=== PATIENT | male | born 1965 | race Hispanic/Latino ===

== ENCOUNTER 2022-05-20 14:12 | Emergency (ER) | payer SELFPAY ==
--- NOTE | 2022-05-20 17:46 | RAD REPORT ---
EXAM DESCRIPTION: US - Extrem Venous W Compress Jairo - 05/20/2022 5:39 pm CLINICAL HISTORY: PAIN COMPARISON: No comparisons TECHNIQUE: Real-time sonographic evaluation of the lower extremity deep venous systems was performed using color Doppler, grayscale, and compression. FINDINGS: Bilateral lower extremities. Normal compressibility, flow augmentation, phasic flow and spontaneous flow is identified in both the left and right lower extremity deep venous systems. No intraluminal filling defects seen. IMPRESSION: No DVT in either lower extremity.
--- NOTE | 2022-05-20 18:12 | RAD REPORT ---
EXAM DESCRIPTION: RAD - Chest Single View - 05/20/2022 6:03 pm CLINICAL HISTORY: SOB COMPARISON: No comparisons FINDINGS: Lines: None. Lungs: No evidence of edema or pneumonia. Pleural: No significant pleural effusions or pneumothorax. Cardiac: The heart size is within normal limits. Mediastinum: Within normal limits. Bones: No acute fractures. Other: None IMPRESSION: No acute cardiopulmonary disease.
[2022-05-20 18:26] LABS: Absolute Lymphocytes (CBC) 1.4 K/uL (0.7-4.9); Hematocrit 26.4 % (39.6-49.0); MCV 90.1 fL (80-100); MPV 8.7 fL (7.6-11.3); RBC Red Blood Cell Count 2.93 M/uL (4.33-5.43)
[2022-05-20 19:06] LABS: Potassium 3.8 mmol/L (3.5-5.1); Troponin High Sensitivity 8.1 pg/mL (<58.9)
--- NOTE | 2022-05-20 19:50 | EDPHYS ---
Physician Documentation [facility] Name: Fan Lei Jr Age: 56 yrs Sex: Male : 1965 Arrival Date: 05/20/2022 Time: 14:26 Bed 12 Private MD: ED Physician Agustín Todd HPI: 05/20 15:00 This 56 yrs old Male presents to ER via Ambulatory with complaints of Leg jmm Pain, General Weakness. 15:00 The patient presents with pain. Is a 56-year-old male with history of alcoholism the m presents emerged part with complaints of lower extremity pain beginning approximately 5 months ago. Patient is currently in a rehabilitation facility. Patient states the pain is increased over the past few days. Also complains of some shortness of breath. Denies chest pain.. Historical: - Allergies: 14:47 No Known Allergies; kb3 - PMHx: 14:47 Alcohol dependence; kb3 - Immunization history:: Adult Immunizations unknown, Client reports receiving the 2nd dose of the Covid vaccine, Last tetanus immunization: unknown. - Social history:: Smoking status: Patient reports the use of cigarette tobacco products, smokes one-half pack cigarettes per day. ROS: 15:00 Constitutional: Negative for fever, chills, and weight loss, Cardiovascular: Negative jmm for chest pain, palpitations, and edema. 15:00 Respiratory: Positive for shortness of breath. 15:00 MS/extremity: Positive for pain. 15:00 All other systems are negative. Exam: 15:00 Constitutional: This is a well developed, well nourished patient who is awake, alert, jmm and in no acute distress. Head/Face: atraumatic. Eyes: EOMI, no conjunctival erythema appreciated ENT: Moist Mucus Membranes Neck: Trachea midline, Supple Chest/axilla: Normal chest wall appearance and motion. Cardiovascular: Regular rate and rhythm. No edema appreciated Respiratory: Normal respirations, no respiratory distress appreciated Abdomen/GI: Non distended Back: Normal ROM Skin: General appearance color normal 15:00 Musculoskeletal/extremity: Pain elicited on palpation of the right lower leg, no induration or erythema appreciated. No swelling appreciated. Dorsalis pedis palpated bilaterally. Compartments are soft. Sensation is intact. Neurovascular intact. 15:00 Skin: Appearance: Color: normal in color. 15:00 Neuro: Orientation: is normal, Mentation: is normal, Memory: is normal. 15:00 Psych: Behavior/mood is pleasant, cooperative. 22:49 ECG was reviewed by the Attending Physician. [facility] Vital Signs: 14:45 BP 139 / 80; Pulse 88; Resp 20; Temp 98.0; Pulse Ox 100% ; Weight 65.77 kg; Height 5 kb3 ft. 4 in. (162.56 cm); Pain 8/10; 20:02 BP 128 / 83; Pulse 99; Temp 97.7; Pulse Ox 99% ; zm 14:45 Body Mass Index 24.89 (65.77 kg, 162.56 cm) kb3 MDM: 15:04 Patient medically screened. [facility] 19:48 Data reviewed: vital signs, nurses notes. Counseling: I had a detailed discussion with [facility] the patient and/or guardian regarding: the historical points, exam findings, and any diagnostic results supporting the discharge/admit diagnosis, the need for outpatient follow up, to return to the emergency department if symptoms worsen or persist or if there are any questions or concerns that arise at home. 19:48 ED course: After reviewing labs. Hemoglobin level was at 8.5. I discussed this with the [facility] patient whom stated he did not have any history of anemia. Denied dark stools. I did discuss with the patient the need for further evaluation with a rectal exam and guaiac screening. Patient refused. Patient will be prescribed ferrous sulfate, Pepcid and given strict return precautions. Patient agreed.. 05/20 17:44 Order name: Basic Metabolic Panel; Complete Time: 19:10 [facility] 05/20 17:44 Order name: CBC with Diff; Complete Time: 18:29 [facility] 05/20 14:59 Order name: US Extremity Venous W Compression Jairo; Complete Time: 17:47 [facility] 05/20 17:44 Order name: Troponin HS; Complete Time: 19:10 [facility] 05/20 17:44 Order name: XRAY Chest (1 view); Complete Time: 18:13 [facility] 05/20 17:44 Order name: EKG; Complete Time: 17:44 [facility] 05/20 15:08 Order name: Gown patient; Complete Time: 18:25 [facility] 05/20 17:44 Order name: EKG - Nurse/Tech; Complete Time: 18:51 [facility] 05/20 17:44 Order name: IV Saline Lock; Complete Time: 18:20 [facility] 05/20 17:44 Order name: Labs collected and sent; Complete Time: 18:20 [facility] 05/20 17:44 Order name: O2 Per Protocol; Complete Time: 18:25 [facility] 05/20 17:44 Order name: O2 Sat Monitoring; Complete Time: 18:25 [facility] 05/20 18:28 Order name: Misc. Order: recollect green top; Complete Time: 18:44 jl7 EC:49 Rate is 77 beats/min. Rhythm is regular. QRS [place] is Normal. [place] interval is normal. QRS jmm interval is normal. QT interval is normal. No Q waves. T waves are Normal. No ST changes noted. Reviewed by me. Administered Medications: No medications were administered Disposition Summary: 05/20/22 19:49 Discharge Ordered Location: Home [facility] Condition: Stable [facility] Diagnosis - Anemia, unspecified [facility] - Pain in unspecified lower leg [facility] Followup: [facility] - With: Private Physician - When: 2 - 3 days - Reason: Recheck today's complaints, Continuance of care, Re-evaluation by your physician Discharge Instructions: - Discharge Summary Sheet [facility] - Anemia [facility] - Musculoskeletal Pain [facility] Forms: - Medication Reconciliation Form [facility] - Thank You Letter [facility] - Antibiotic Education [facility] - Prescription Opioid Use [facility] Prescriptions: - Ferrous Sulfate 325 mg (65 mg Iron) Oral Tablet - take 1 tablet by ORAL route every 8 hours; 90 tablet; Refills: 0, Product [facility] Selection Permitted - Pepcid 20 mg Oral Tablet - take 1 tablet by ORAL route every 12 hours for 10 days; 20 tablet; Refills: 0, [facility] Product Selection Permitted - orphenadrine citrate 100 mg Oral Tablet Sustained Release - take 1 tablet by ORAL route 2 times per day As needed; 20 tablet; Refills: 0, [facility] Product Selection Permitted Addendum: 05/24/2022 09:31 Co-signature as Attending Physician, Agustín ALCANTARA was immediately available on-site m s3 in the Emergency Department for consultation in the care of the patient. Signatures: Dispatcher [employer] EDMS Rosendo Rai PA PA jmm Leal, Jahala, RN RN jl7 Agustín Todd DO DO ms3 Tim, Jerri, RN RN kb3
--- NOTE | 2022-05-20 19:50 | ER ---
Nurse's Notes [facility] Name: Fan Lei Jr Age: 56 yrs Sex: Male : 1965 Arrival Date: 05/20/2022 Time: 14:26 Bed 12 Private MD: Diagnosis: Anemia, unspecified;Pain in unspecified lower leg Presentation: 05/20 14:45 Chief complaint: Patient states: Pt reports bilateral leg pain since January. No change in kb3 pain level. Pt is in alcohol detox x5 days at [facility]. Coronavirus screen: Vaccine status: Patient reports receiving the 2nd dose of the covid vaccine. Client denies travel out of the [place] in the last 14 days. Ebola Screen: Patient negative for fever greater than or equal to 101.5 degrees Fahrenheit, and additional compatible Ebola Virus Disease symptoms Patient denies exposure to infectious person. Patient denies travel to an Ebola-affected area in the 21 days before illness onset. No acute neurological deficit is noted. Initial Sepsis Screen: Does the patient meet any 2 criteria? No. Patient's initial sepsis screen is negative. Does the patient have a suspected source of infection? No. Patient's initial sepsis screen is negative. Risk Assessment: Do you want to hurt yourself or someone else? Patient reports no desire to harm self or others. Onset of symptoms was January 21, 2022. 14:45 Method Of Arrival: Ambulatory 3 14:45 Acuity: KITA 4 kb3 Triage Assessment: 14:47 General: Appears in no apparent distress. Behavior is calm, cooperative. Pain: kb3 Complains of pain in right leg and left leg Pain does not radiate. Pain currently is 8 out of 10 on a pain scale. Neuro: No deficits noted. Reports Bilateral leg pain. Historical: - Allergies: 14:47 No Known Allergies; kb3 - PMHx: 14:47 Alcohol dependence; kb3 - Immunization history:: Adult Immunizations unknown, Client reports receiving the 2nd dose of the Covid vaccine, Last tetanus immunization: unknown. - Social history:: Smoking status: Patient reports the use of cigarette tobacco products, smokes one-half pack cigarettes per day. Screenin:00 Abuse screen: Denies threats or abuse. Denies injuries from another. Nutritional hb screening: No deficits noted. Tuberculosis screening: No symptoms or risk factors identified. Fall Risk None identified. Assessment: 19:30 General: SEE TRIAGE ASSESSMENT. hb 20:17 Reassessment: Patient appears in no apparent distress at this time. Patient and/or hb family updated on plan of care and expected duration. Pain level reassessed. Patient is alert, oriented x 3, equal unlabored respirations, skin warm/dry/pink. Vital Signs: 14:45 BP 139 / 80; Pulse 88; Resp 20; Temp 98.0; Pulse Ox 100% ; Weight 65.77 kg; Height 5 kb3 ft. 4 in. (162.56 cm); Pain 8/10; 20:02 BP 128 / 83; Pulse 99; Temp 97.7; Pulse Ox 99% ; zm 14:45 Body Mass Index 24.89 (65.77 kg, 162.56 cm) kb3 ED Course: 14:26 Patient arrived in ED. am2 14:43 Rosendo Rai PA is PHCP. [facility] 14:43 Agustní Todd DO is Attending Physician. [facility] 14:47 Triage completed. kb3 14:47 Arm band placed on right wrist. kb3 17:41 US Extremity Venous W Compression Jairo In Process Unspecified. EDMS 18:04 XRAY Chest (1 view) In Process Unspecified. EDMS 18:20 Basic Metabolic Panel Sent. zm 18:20 CBC with Diff Sent. zm 18:20 Troponin HS Sent. zm 18:20 Inserted saline lock: 22 gauge in left forearm, using aseptic technique. Blood zm collected. 18:24 Aline Rodriguez, RN is Primary Nurse. hb 19:00 Patient has correct armband on for positive identification. hb 20:18 No provider procedures requiring assistance completed. IV discontinued, intact, hb bleeding controlled, No redness/swelling at site. Administered Medications: No medications were administered Medication: 20:18 VIS not applicable for this client. hb Outcome: 19:49 Discharge ordered by . [facility] 20:18 Discharged to home ambulatory. hb 20:18 Condition: stable 20:18 Discharge instructions given to patient, Instructed on discharge instructions, follow up and referral plans. medication usage, Demonstrated understanding of instructions, follow-up care, medications, Prescriptions given X 3. 20:19 Patient left the ED. hb Signatures: Dispatcher [employer] EDMS Rosendo Rai PA PA jmm Baxter, Heather, RN RN hb Judith Wagoner am2 Gita Zimmerman Kelly RN RN kb3
[2022-05-20 21:06] VITALS: BP 128/83; TEMP 97.7; O2SAT 99
--- NOTE | 2022-05-23 16:05 | EKG ---
Test Date: 2022-05-20 Test Time: 18:47:59 Software Development Manager: HB MEASUREMENT RESULTS: Intervals: Rate: 77 OK: 146 QRSD: 78 QT: 404 QTc: 457 [place]: P: 3 OK: 146 QRS: 5 T: 57 INTERPRETIVE STATEMENTS: Normal sinus rhythm Normal ECG No previous ECG available for comparison Electronically Signed On 05-23-22 15:59:56 CDT by Donnell Giraldo
== END 2022-05-20 20:19 | disposition home or self-care (01) ==
LOC: ER 14:12
DX: M79.661 Pain in right lower leg (principal); D64.9 Anemia, unspecified; F10.20 Alcohol dependence, uncomplicated
CPT/HCPCS: 36415; 71045; 80048; 84484; 85025; 93005; 93970; 99284

== ENCOUNTER 2022-12-14 07:28 | Emergency (ER) | payer SELFPAY ==
--- OUTSIDE RECORDS SUMMARY | 2022-12-14 07:35 | XMS REPORT | Continuity of Care Document ---
:1965 Author Organization [facility] t Address [address] [place] [address] Care Team Providers Name Role Phone Pcp, Patient Does Not Have A Primary Care Physician [id number] PRESTON ENRIQUEZ Attending Clinician Unavailable Doctor Unassigned, [place] Attending Clinician Unavailable RUBEN CONN Attending Clinician Unavailable Pardeep Moody MD Attending Clinician Ruben Conn MD Attending Clinician CHRISTIAN Attending Clinician Unavailable Tamara Partida LVN Attending Clinician Maya Nguyen DO Attending Clinician RIVKA PALACIOS Attending Clinician Unavailable Rivka Palacios MD Attending Clinician [phone] Sujit Carolina MD Attending Clinician DR KARRI THAYER Attending Clinician Unavailable Edna Attending Clinician Unavailable KAY ALBERTO Attending Clinician Unavailable Kay Alberto MD Attending Clinician Marcel Menjivar MD Attending Clinician DR ADY CONN Attending Clinician Unavailable RUBEN CONN Admitting Clinician Unavailable Ruben Conn MD Admitting Clinician HENRIK_KIRSTIN Admitting Clinician Unavailable SUJIT VAZQUEZ Admitting Clinician Unavailable Sujit Vazquez MD Admitting Clinician DR KARRI THAYER Admitting Clinician Unavailable Edna Admitting Clinician Unavailable KAY ALBERTO Admitting Clinician Unavailable DR ADY CONN Admitting Clinician Unavailable Payers Payer Name Policy Type Policy Number Effective Date Expiration Date [facility] MEDICAID SSI PENDING 2022 2022 PENDING 00:00:00 00:00:00 1000 [id number] 2022 00:00:00 Problems Condition Condition Condition Status Onset Resolution Last Treating Co mments Source Name Details Category Date Date Treatment Clinician Date Gastrointe Gastrointe Disease Active U nivers stinal stinal 3-18 [place]y [place] , 00 Medical unspecifie unspecifie Br anch d d gastrointe gastrointe stinal stinal hemorrhage hemorrhage type type SOB SOB Disease Active Univers (shortness (shortness 1-29 it y of of breath) [place] breath) [place] 00 [place] Branch Symptomati Symptomati Disease Active Overview : Univers c anemia c anemia 08-21 Formatt[place] ity of 00:00: g of this [place] [id number] note Medical might be Branch different from the original. 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 00:00: Medica l with with 00 Center complicati complicati on on Gastric Gastric Disease Active [facility] Allergies, Adverse Reactions, Alerts Allergy Allergy Status Severity Reaction(s) Onset Inactive Treating Comm ents Source Name Type Date Date Clinician No Known DA Active [facility] s NO KNOWN Drug Active Univers ALLERGIE Class ity of S [facility] NO KNOWN Allergy Active [facility] ALLERGIE [facility] Social History Social Habit Start Date Stop Date Quantity Comments Source History of tobacco Passive smoker Un iversity of use [place] [facility] History SDOH Social Unive rsity of Connections Get [place] [facility] ical Together Branch History SDOH Social Unive rsity of Connections Taoist [place] [facility] History SDOH Social Unive rsity of Connections [place] [facility] Membership Branch History SDOH Social Unive rsity of Connections [place] [facility] Meetings Branch History SDOH [facility] Housing Places Medical Ce nter Lived Exposure to 2022-09-27 2022-10-07 Not sure University of SARS-CoV-2 (event) 00:00:00 15:03:00 [place] [facility] Cigarettes smoked 2022-10-07 2022-10-07 Univers ity of current (pack per 00:00:00 00:00:00 [facility] edical day) - Reported Branch Cigarette 2022-10-07 2022-10-07 University of pack-years 00:00:00 00:00:00 [facility] Branch Alcohol intake 2022-10-07 2022-10-07 6 /d University of 00:00:00 00:00:00 [place] [facility] History SDOH 2022-10-07 2022-10-07 5 University o f Alcohol Frequency 00:00:00 00:00:00 [place] [facility] ed[facility] History SDOH 2022-10-07 2022-10-07 3 University o f Alcohol Std Drinks 00:00:00 00:00:00 [place] [facility] History SDOH 2022-10-07 2022-10-07 5 University o f Alcohol Binge 00:00:00 00:00:00 [place] [facility] History SDOH Social 2022-10-07 2022-10-07 5 Unive rsity of Connections Phone 00:00:00 00:00:00 [place] M edical Branch History SDOH Social 2022-10-07 2022-10-07 98 Unive rsity of Connections Living 00:00:00 00:00:00 [place] [facility] History SDOH 2022-10-07 2022-10-07 0 University o f Physical Activity 00:00:00 00:00:00 [place] [facility] ed[facility] DPW Branch History SDOH 2022-10-07 2022-10-07 0 University o f Physical Activity 00:00:00 00:00:00 [facility] edical MPS Branch History SDOH 2022-10-07 2022-10-07 5 University o f Financial 00:00:00 00:00:00 [place] [facility] History SDOH Food 2022-10-07 2022-10-07 1 Univers ity of Worry 00:00:00 00:00:00 [place] [facility] History SDOH Food 2022-10-07 2022-10-07 1 Univers ity of Scarcity 00:00:00 00:00:00 [place] [facility] History SDOH 2022-10-07 2022-10-07 2 University o f Transport Med 00:00:00 00:00:00 [place] [facility] History SDOH 2022-10-07 2022-10-07 2 University o f Transport Non-Med 00:00:00 00:00:00 [facility] edical Branch Tobacco use and 2021-12-18 2021-12-[address] [facility] exposure 00:00:00 00:00:00 tobacco non-user Medical Center History [facility] 2021-12-18 2021-12-[address] [facility] Housing Unable to 00:00:00 00:00:00 Medical Center Pay History [facility] 2021-12-18 2021-12-[address] [facility] Housing Homeless 00:00:00 00:00:00 Medical Center Last Year Sex Ass[birth year] At [birth year] Universit y of 00:00:00 00:00:00 [facility] Smoking Status Start Date Stop Date Source Smokes tobacco daily 2022-10-07 00:00:00 Univers ity of [facility] Occasional tobacco smoker 2022-08-22 00:00:00 Un iversity of [facility] Medications Ordered Filled Start Stop Current Ordering Indication Dosage Frequency Signature Comments Components Source Medication Medication Date Date Medication? Clinician (SIG) Name Name oxazepam 15 Yes [id number] 15mg Take 1 Univers mg capsule 3-22 capsule by ity of 00:00: mouth [place] 00 every 4 Medical (four) Branch hours as needed (Only while awake for DBP equal to or greater than 100, HR equal to or greater than 100.). foLIC acid Yes [id number] 1mg Take 1 Univers 1 mg tablet 3-20 tablet by ity of 00:00: mouth in [place] 00 the Medical morning. Branch pantoprazol Yes [id number] 40mg Take 1 Univers e 40 mg EC 3-20 tablet by ity of tablet 00:00: mouth in [place] 00 the Medical morning Branch and 1 tablet in the evening. propranoloL Yes [id number] 10mg Take 1 Univers 10 mg 3-20 tablet by ity of tablet 00:00: mouth in [place] 00 the Medical morning Branch and 1 tablet in the evening. thiamine Yes [id number] 100mg Take 1 Un juan antonio 100 mg 3-20 tablet by ity of tablet 00:00: mouth in [place] 00 the Medical morning. Branch ferrous Yes [id number] 325mg Take 1 Uni vers sulfate 3-20 tablet by ity of (IRON) 325 00:00: mouth in [place] as mg (65 mg 00 the [facility] iron) morning Branch tablet and 1 tablet at noon and 1 tablet in the evening. Take with meals. polyethylen Yes [id number] 17g Take 17 g Univers e glycol 3-20 by mouth ity of 3350 17 00:00: in the [place] gram/dose 00 morning. Medica l powder Branch oxazepam 15 2022- Yes [id number] 15mg Take 1 Univers mg capsule -10 10- capsule by it y of 00:00: 04:59 mouth [place] 00 :00 every 12 Medical (twelve) Branch hours for 1 day. oxazepam 15 2022- No [id number] 15mg Take 1 Univers mg capsule 3-20 - capsule by it y of 00:00: 00:00 mouth [place] 00 :00 every 12 Medical (twelve) Branch hours for 1 day. oxazepam 2022- Yes 15mg [Order 1 Univ ers (SERAX) 10-09 Start] ity of capsule 15 18:00: 18:14 Name: [place] mg 09 :00 oxazepam Medical (SERAX) Branch capsule 15 mg Signed Summary: 15 mg, Oral, Q8H TAPER, 3 doses, First dose on Mon10/09/22 at 1315, Last dose on Mon10/10/22 at 0515, Routine [Order 1 End] [Order 2 Start] Name: oxazepam (SERAX) capsule 15 mg Signed Summary: 15 mg, Oral, Q12H TAPER, 2 doses, First dose on Mon10/10/22 at 1715, Last dose on Mon10/11/22 at 0515, Routine [Order 2 End] iron 2022- No 300mg 300 mg, IV Unive rs sucrose 10-09 Infusion, ity of (VENOFER) 13:45: 17:37 ONCE, [place] 300 mg in 00 :00 Administer Medi heriberto NaCl 0.9% over 1.5 Branch (NS) 250 mL Hours, On infusion [place] 10/09/22 at 0845, For 1 dose magnesium 2022- No 4g 4 g, IV Univ ers sulfate in 10-09 Piggyback, it y of water 4 12:30: 17:18 at 25 [place] gram/50 mL 00 :00 mL/hr Medical (8 %) IV Administer Branc h Piggyback 4 over 120 g Minutes, ONCE, 1 dose, On [place] 10/09/22 at 0730, Routine melatonin Yes 3mg 3 mg, Univers (MELATIN) 10-09 Oral, QHS, ity of tablet 3 mg 05:45: First dose [place] 00 on [facility] 10/09/22 at Branch 0045, Until Discontinu ed, Routine thiamine 0 Yes [id number] 100mg Take 1 Un juan antonio 100 mg 3-19 tablet by ity of tablet 00:00: mouth in [place] 00 the Medical morning. Branch oxazepam 15 0 Yes [id number] 15mg Take 1 Univers mg capsule 10-09 capsule by ity of 00:00: mouth [place] 00 every 4 Medical (four) Branch hours as needed (Only while awake for DBP equal to or greater than 100, HR equal to or greater than 100.). ferrous 0 Yes [id number] 325mg Take 1 Uni vers sulfate 3-19 tablet by ity of (IRON) 325 00:00: mouth in [place] as mg (65 mg 00 the Medical iron) morning Branch tablet and 1 tablet at noon and 1 tablet in the evening. Take with meals. polyethylen 0 Yes [id number] 17g Take 17 g Univers e glycol 3-19 by mouth ity of 3350 17 00:00: in the [place] gram/dose 00 morning. Medica l powder Branch oxazepam 15 0 2022- Yes [id number] 15mg Take 1 Univers mg capsule 10-09 capsule by it y of 00:00: 04:59 mouth [place] 00 :00 every 8 Medical (eight) Branch hours for 1 day. oxazepam 15 2022- No [id number] 15mg Take 1 Univers mg capsule 10-09 capsule by it y of 00:00: 00:00 mouth [place] 00 :00 every 8 Medical (eight) Branch hours for 1 day. phytonadion 2022- Yes 10mg IV Unive rs e (VITAMIN 10-08 Piggyback, it y of K) 10 mg in 17:15: 17:14 Q24H ABX, [place] NaCl 0.9% 00 :00 3 doses, Medica l (NS) First dose Branch piggyback on [facility] 10/08/22 at 1215, Last dose on Mon10/10/22 at 1215, 50 mL oxazepam Yes 15mg 15 mg, Univers (SERAX) 10-08 Oral, ity of capsule 15 16:00: Q4HPRN, [place] mg 09 Starting Medical on [facility] 10/08/22 at 1100, Until Discontinu ed, Routine, Only while awake for DBP equal to or greater than 100, HR equal to or greater than 100. thiamine Yes 100mg 100 mg, Unive rs (VITAMIN 10-08 Oral, ity of B1) tablet 14:00: DAILY, [place] 100 mg 00 First dose Medical on [facility] 10/08/22 at 0900, Until Discontinu ed, Routine foLIC acid Yes 1mg 1 mg, Univer s (FOLATE) 10-08 Oral, ity of tablet 1 mg 14:00: DAILY, [place] 00 First dose Medical on [facility] 10/08/22 at 0900, Until Discontinu ed, Routine magnesium 2022- No 4g 4 g, IV Univ ers sulfate in 10-08 Piggyback, it y of water 4 14:00: 16:51 at 25 [place] gram/50 mL 00 :00 mL/hr Medical (8 %) IV Administer Branc h Piggyback 4 over 120 g Minutes, ONCE, 1 dose, On [facility] 10/08/22 at 0900, Routine pantoprazol 0 Yes 40mg 40 mg, Univ ers e 3-18 Slow IV ity of (PROTONIX) 13:00: Push, [place] injection 00 Q12H, Medical 40 mg First dose Branch on 10/08/22 at 0800, Until Discontinu ed oxazepam 2022-0 Yes 10mg 10 mg, Univers (SERAX) 18 Oral, ity of capsule 10 04:35: Q6HPRN, [place] mg 10 Starting Medical on Fri Branch 10/07/22 at 2335, Until Discontinu ed, Routine, Withdrawal signs pantoprazol 2022-0 202- No 40mg 40 mg, Uni vers e 318 03-18 Oral, BID, ity of (PROTONIX) 01:00: 12:22 First dose [place] EC tablet 00 :26 on Mon Medical 40 mg 10/07/22 at Branch 2000, Until Discontinu ed, Routine ondansetron 2022-0 Yes 4mg 4 mg, Slow Univers (ZOFRAN 3-17 IV Push, ity of (PF)) 15:26: Q6HPRN, [place] injection 4 20 Starting Medi heriberto mg on Fri Branch 10/07/22 at 1026, Until Discontinu ed, Routine, Nausea and Vomiting (N/V) acetaminoph 2022-0 Yes 650mg 650 mg, Un juan antonio en 3-17 Oral, ity of (TYLENOL) 15:26: Q6HPRN, [place] tablet 650 19 Starting Medic al mg on Fri Branch 10/07/22 at 1026, Until Discontinu ed, Routine, Pain (scale 1-3) foLIC acid 2022-0 Yes [id number] 1mg Take 1 Univers 1 mg tablet 2-02 tablet by ity of 00:00: mouth in [place] [address] the Medical morning. [place] foLIC acid 2022-0 Yes [id number] 1mg Take 1 Univers 1 mg tablet 2-02 tablet by ity of 00:00: mouth in [place] the Medical morning. [place] foLIC acid 2022-0 Yes [id number] 1mg Take 1 Univers 1 mg tablet 2-02 tablet by ity of 00:00: mouth in [place] the Medical morning. [place] foLIC acid 2022-0 Yes [id number] 1mg Take 1 Univers 1 mg tablet 2-02 tablet by ity of 00:00: mouth in [place] the Medical morning. [place] foLIC acid 2023-0 Yes [id number] 1mg Take 1 Univers 1 mg tablet 08-25 tablet by ity of 00:00: mouth in [place] 00 the Medical morning. [place] foLIC acid 2022- No [id number] 1mg Take 1 Univers 1 mg tablet 08-25 tablet by it y of 00:00: 00:00 mouth in [place] 00 :00 the Medical morning. [place] foLIC acid 0 2022- No [id number] 1mg Take 1 Univers 1 mg tablet 08-25 tablet by it y of 00:00: 00:00 mouth in [place] 00 :00 the Medical morning. [place] pantoprazol 0 Yes 40mg 40 mg, Univ ers e - Oral, BID, ity of (PROTONIX) 14:00: First dose [place] EC tablet 00 on Mon 40 mg 08/24/22 at [place] 0800, Until Discontinu ed, Routine KCL 2022-2022- No 40meq 40 mEq, Univers (KLOR-CON 08-24 Oral, ity of M20) tablet 13:30: 14:14 ONCE, 1 [place] 40 mEq 00 :00 dose, On Mon08/24/22 [place] at 0730, Routine propranoloL 2022-0 Yes 10mg 10 mg, Univ ers (INDERAL) 08-24 Oral, BID, ity of tablet 10 02:00: First dose [place] mg 00 on Mon08/23/22 at [place] 2000, Until Discontinu ed, Routine phytonadion 2022-2022- No 5mg 5 mg, Univ ers e (vitamin 2- Oral, ity of K1) 00:45: 14:59 DAILY, 3 [place] (MEPHYTON) 00 :00 doses, Medical tablet 5 mg First dose Br anch on Mon08/23/22 at 1845, Last dose on Mon08/25/22 at 0900, Routine pantoprazol 2022-0 Yes [id number] 40mg Take 1 Univers e 40 mg EC 08-24 tablet by ity of tablet 00:00: mouth in [place] 00 the Medical morning Branch and 1 tablet in the evening. propranoloL 2022-0 Yes [id number] 10mg Take 1 Univers 10 mg 08-24 tablet by ity of tablet 00:00: mouth in [place] [address] the Medical morning Branch and 1 tablet in the evening. pantoprazol 2023-0 Yes [id number] 40mg Take 1 Univers e 40 mg EC 2-01 tablet by ity of tablet 00:00: mouth in [place] 00 the Medical morning Branch and 1 tablet in the evening. propranoloL 2023-0 Yes [id number] 10mg Take 1 Univers 10 mg 2-01 tablet by ity of tablet 00:00: mouth in [place] 00 the Medical morning Branch and 1 tablet in the evening. pantoprazol 2023-0 Yes [id number] 40mg Take 1 Univers e 40 mg EC 2-01 tablet by ity of tablet 00:00: mouth in [place] 00 the Medical morning Branch and 1 tablet in the evening. propranoloL 2023-0 Yes [id number] 10mg Take 1 Univers 10 mg 2-01 tablet by ity of tablet 00:00: mouth in [place] [address] the Medical morning Branch and 1 tablet in the evening. pantoprazol 2023-0 Yes [id number] 40mg Take 1 Univers e 40 mg EC 2-01 tablet by ity of tablet 00:00: mouth in [place] [address] the Medical morning Branch and 1 tablet in the evening. propranoloL 2023-0 Yes [id number] 10mg Take 1 Univers 10 mg 2-01 tablet by ity of tablet 00:00: mouth in [place] [address] the Medical morning Branch and 1 tablet in the evening. pantoprazol 2023-0 Yes [id number] 40mg Take 1 Univers e 40 mg EC 2-01 tablet by ity of tablet 00:00: mouth in [place] [address] the Medical morning Branch and 1 tablet in the evening. propranoloL 2023-0 Yes [id number] 10mg Take 1 Univers 10 mg 2-01 tablet by ity of tablet 00:00: mouth in [place] [address] the Medical morning Branch and 1 tablet in the evening. propranoloL 2023-0 2023- No [id number] 10mg Take 1 Univers 10 mg 2-01 02-01 tablet by ity of tablet 00:00: 00:00 mouth in [place] 00 :00 the Medical morning Branch and 1 tablet in the evening. pantoprazol 2023-0 2023- No [id number] 40mg Take 1 Univers e 40 mg EC 2-01 02-01 tablet by ity of tablet 00:00: 00:00 mouth in [place] 00 :00 the Medical morning Branch and 1 tablet in the evening. Do all this for 30 days. pantoprazol 2022- No [id number] 40mg Take 1 Univers e 40 mg EC 08-24 tablet by ity of tablet 00:00: 00:00 mouth in [place] 00 :00 the [facility] Branch and 1 tablet in the evening. propranoloL 2022- No [id number] 10mg Take 1 Univers 10 mg 08-24 tablet by ity of tablet 00:00: 00:00 mouth in [place] 00 :00 the [facility] Branch and 1 tablet in the evening. magnesium 2022- No 4g 4 g, IV Univ ers sulfate in 08-23 Piggyback, it y of water 4 09:30: 14:00 at 25 [place] gram/50 mL 00 :00 mL/hr Medical (8 %) IV Administer Branc h Piggyback 4 over 120 g Minutes, ONCE, 1 dose, On Mon08/23/22 at 0330, Routine foLIC acid Yes 1mg 1 mg, Univer s (FOLATE) 08-22 Oral, ity of tablet 1 mg 15:00: DAILY, [place] 00 First dose Medical on Mon Branch 08/22/22 at 0900, Until Discontinu ed, Routine iron No 200mg 200 mg, IV Unive rs sucrose 08-22 Infusion, ity of (VENOFER) 15:00: 14:59 DAILY, [place] 200 mg in 00 :00 Administer Medi heriberto NaCl 0.9% over 1.5 Branch (NS) 100 mL Hours, infusion First dose on Mon08/22/22 at 0900, For 5 days magnesium 2022- No 4g 4 g, IV Univ ers sulfate in 08-22 Piggyback, it y of water 4 04:45: 08:35 at 25 [place] gram/50 mL 00 :00 mL/hr Medical (8 %) IV Administer Branc h Piggyback 4 over 120 g Minutes, ONCE, 1 dose, On 08/21/22 at 2245, Routine phytonadion 2022-2022- No 10mg IV Unive rs e (VITAMIN 08-22 Piggyback, it y of K) 10 mg in 04:22: 08:42 ONCE, 1 [place] NaCl 0.9% 00 :00 dose, On Medica l (NS) [place] Branch piggyback 08/21/22 at 2230, 50 mL pantoprazol 2022- No 80mg 80 mg, Uni vers e 08-22 Slow IV ity of (PROTONIX) 03:16: 04:15 Push, [place] injection 00 :00 ONCE, 1 Medical 80 mg dose, On Branch [place] 08/21/22 at 2130 lactulose Yes 30mL 30 mL, Univer s (CEPHULAC) 08-22 Oral, BID, ity of solution 30 02:00: First dose [place] mL 00 on [place] Medical 08/21/22 at Branch 2000, Until Discontinu ed, Routine acetaminoph Yes 650mg 650 mg, Un juan antonio en 08-22 Oral, ity of (TYLENOL) 01:51: Q6HPRN, [place] tablet 650 03 Starting Medic al mg on [place] Branch 08/21/22 at 1951, Until Discontinu ed, Routine, Pain (scale 1-3) pantoprazol 2022- No 8mg/h 8 mg/hr U nivers e 08-22 (50 ity of (PROTONIX) 01:30: 12:39 mL/hr), IV [place] 80 mg in 00 :06 Infusion, Medica l NaCl CONTINUOUS Branch 0.9%(NS) , Starting 500 mL IV on [place] infusion 08/21/22 at (CNR) 1930 cefTRIAXone 2022- No 1000mg 1,000 mg, Univers (ROCEPHIN) 08-22 Intravenou it y of 1,000 mg in 01:30: 16:35 s, Q24H [place] NaCl 0.9% 00 :33 ABX, 7 Medical (NS) 50 mL doses, Branch MINI-BAG First dose on [place] 08/21/22 at 1930, Last dose on [facility] 08/27/22 at 1930, Administer over 30 Minutes, 50 mL
Reas on for Anti-Infec tive: Empiric Therapy for Suspected Infection< br>Empiric Therapy Site: Abdominal< br>Duratio n of therapy: 5 days oxazepam Yes 15mg 15 mg, Univers (SERAX) 1-30 Oral, ity of capsule 15 01:20: Q4HPRN, [place] mg 49 Starting Medical on [place] Branch 08/21/22 at 1920, Until Discontinu ed, Routine, Only while awake for DBP equal to or greater than 100, HR equal to or greater than 100. folic acid 2022- No 1mg QD Take [address] [facility] (FOLVITE) 1 6- 07-08 tablet (1 Amanda k[facility] MG tablet 00:00: 23:59 mg total) Me dical 00 :00 by mouth Center daily for 30 days. folic acid 2021-2- No 1mg QD Take [address] [facility] (FOLVITE) 1 - 07-08 tablet (1 Amanda kes MG tablet 00:00: 23:59 mg total) Me dical 00 :00 by mouth Center daily for 30 days. folic acid 2- No 1mg QD Take [address] [facility] (FOLVITE) 1 - 07-08 tablet (1 [facility] kes MG tablet 00:00: 23:59 mg total) Me dical 00 :00 by mouth Center daily for 30 days. folic acid 2021-2- No 1mg QD Take [address] [facility] (FOLVITE) 1 - 07-08 tablet (1 Amanda kes MG tablet 00:00: 23:59 mg total) Me dical 00 :00 by mouth Center daily for 30 days. folic acid 2021-2- No 1mg QD Take [address] [facility] (FOLVITE) 1 - 07-08 tablet (1 Amanda kes MG tablet 00:00: 23:59 mg total) Me dical 00 :00 by mouth Center daily for 30 days. folic acid 2021-0 2- No 1mg QD Take [address] [facility] (FOLVITE) 1 6-08 07-08 tablet (1 Amanda kes MG tablet 00:00: 23:59 mg total) Me dical 00 :00 by mouth Center daily for 30 days. folic acid 2021-0 2022- No 1mg QD Take [address] [facility] (FOLVITE) 1 6-08 07-08 tablet (1 Amanda kes MG tablet 00:00: 23:59 mg total) Me dical 00 :00 by mouth Center daily for 30 days. folic acid 2022-0 2022- No 1mg QD Take [address] [facility] (FOLVITE) 1 6-08 07-08 tablet (1 Amanda kes MG tablet 00:00: 23:59 mg total) Me dical 00 :00 by mouth Center daily for 30 days. famotidine 2022-0 Yes 20mg Q.5D Take [address] (PEPCID) 20 6-07 by mouth 2 Amanda kes MG tablet 14:00: (two) Medical 10 times Center daily. LORazepam 2022-0 Yes 1mg Take [address] [facility] (ATIVAN) 1 6-07 by mouth 2 [place] es MG tablet 14:00: (two) Medical 10 times Center daily as needed for Anxiety. metoclopram 2022-0 Yes 5mg Q.[id number] Take [address] [facility] naye 6-07 [id number] by mouth 3 [place] es (REGLAN) 5 14:00: 3D (three) Medi heriberto MG tablet 10 times Center daily. famotidine 2022-0 Yes 20mg Q.5D Take [address] (PEPCID) 20 6-07 by mouth 2 Amanda kes MG tablet 14:00: (two) Medical 10 times Center daily. LORazepam 2022-0 Yes 1mg Take [address] [facility] (ATIVAN) 1 6-07 by mouth 2 [place] MG tablet 14:00: (two) Medical 10 times Center daily as needed for Anxiety. metoclopram 2022-0 Yes 5mg Q.[id number] Take [address] [facility] naye 6-07 [id number] by mouth 3 [place] es (REGLAN) 5 14:00: 3D (three) Medi heriberto MG tablet 10 times Center daily. famotidine 2022-0 Yes 20mg Q.5D Take [address] (PEPCID) 20 6-07 by mouth 2 [facility] kes MG tablet 14:00: (two) Medical 10 times Center daily. LORazepam 2022-0 Yes 1mg Take [address] [facility] (ATIVAN) 1 6-07 by mouth 2 [place] es MG tablet 14:00: (two) Medical 10 times Center daily as needed for Anxiety. metoclopram 2022-0 Yes 5mg Q.[id number] Take [address] [facility] naye 6-07 [id number] by mouth 3 [place] es (REGLAN) 5 14:00: 3D (three) Medi heriberto MG tablet 10 times Center daily. famotidine 2022-0 Yes 20mg Q.5D Take [address] (PEPCID) 20 6-07 by mouth 2 Amanda kes MG tablet 14:00: (two) Medical 10 times Center daily. LORazepam 2022-0 Yes 1mg Take [address] [facility] (ATIVAN) 1 6-07 by mouth 2 [place] MG tablet 14:00: (two) Medical 10 times Center daily as needed for Anxiety. metoclopram 2022-0 Yes 5mg Q.[id number] Take [address] [facility] naye 6-07 [id number] by mouth 3 [place] es (REGLAN) 5 14:00: 3D (three) Medi heriberto MG tablet 10 times Center daily. famotidine 2022-0 Yes 20mg Q.5D Take [address] (PEPCID) 20 6-07 by mouth 2 Amanda kes MG tablet 14:00: (two) Medical 10 times Center daily. LORazepam 2022-0 Yes 1mg Take [address] [address] (ATIVAN) 1 6-07 by mouth 2 [place] MG tablet 14:00: (two) Medical 10 times Center daily as needed for Anxiety. metoclopram 2022-0 Yes 5mg Q.[id number] Take [address] [facility] 6-07 [id number] by mouth 3 [place] es (REGLAN) 5 14:00: 3D (three) Medi heriberto MG tablet 10 times Center daily. famotidine 2022-0 Yes 20mg Q.5D Take [address] (PEPCID) 20 6-07 by mouth 2 Amanda kes MG tablet 14:00: (two) Medical 10 times Center daily. LORazepam 2022-0 Yes 1mg Take [address] [address] (ATIVAN) 1 6-07 by mouth 2 [place] es MG tablet 14:00: (two) Medical 10 times Center daily as needed for Anxiety. metoclopram 2022-0 Yes 5mg Q.[id number] Take [address] [facility] 6-07 [id number] by mouth 3 [place] es (REGLAN) 5 14:00: 3D (three) Medi heriberto MG tablet 10 times Center daily. famotidine 2022-0 Yes 20mg Q.5D Take [address] (PEPCID) 20 6-07 by mouth 2 Amanda kes MG tablet 14:00: (two) Medical 10 times Center daily. LORazepam 2-0 Yes 1mg Take [address] [facility] (ATIVAN) 1 6-07 by mouth 2 [place] es MG tablet 14:00: (two) Medical 10 times Center daily as needed for Anxiety. metoclopram 2022-0 Yes 5mg Q.[id number] Take [address] [facility] naye 6- [id number] by mouth 3 Andrew es (REGLAN) 5 14:00: 3D (three) Medi heriberto MG tablet 10 times Center daily. famotidine 2021-0 Yes 20mg Q.5D Take [address] (PEPCID) 20 6-07 by mouth 2 Amanda kes MG tablet 14:00: (two) Medical 10 times Center daily. LORazepam 2021-0 Yes 1mg Take [address] [facility] (ATIVAN) 1 6-07 by mouth 2 Andrew es MG tablet 14:00: (two) Medical 10 times Center daily as needed for Anxiety. metoclopram 2021-0 Yes 5mg [id number] Take [address] [facility] naye 6- [id number] by mouth 3 Andrew es (REGLAN) 5 14:00: 3D (three) Medi heriberto MG tablet 10 times Center daily. chlordiazeP 2021-2021- No 10mg Q.[id number] Take [address] [facility] OXIDE 12-28- [id number] by mouth 3 L ukes (LIBRIUM) 11:11: 00:00 3D (three) Medi heriberto 10 MG 26 :00 times Center capsule daily. multivitami 2021-2021- No 1{tbl} QD Take [address] n with 12-28-07 tablet by [facility] 11:11: 00:00 mouth Medical tablet 26 :00 daily. Center ondansetron 2021-0 2021- No 4mg Take [address] [facility] (ZOFRAN) 4 12-28-07 by mouth Luke s MG tablet 11:11: 00:00 every 8 Medi heriberto 26 :00 (eight) Center hours as needed for Nausea. thiamine 2021-0 2021- No 100mg QD Take [address] [facility] 100 MG 6-07 06-07 mg by [facility] 11:11: 00:00 mouth Medical 26 :00 daily. [place] chlordiazeP 2021-2021- No 10mg Q.[id number] Take [address] [facility] OXIDE 6- 06-07 [id number] by mouth 3 L ukes (LIBRIUM) 11:11: 00:00 3D (three) Medi heriberto 10 MG 26 :00 times Center capsule daily. multivitami 2021-2021- No 1{tbl} QD Take [address] n with 6- 06-07 tablet by [facility] 11:11: 00:00 mouth Medical tablet 26 :00 daily. [place] ondansetron 2021-2021- No 4mg Take [address] [facility] (ZOFRAN) 4 6- 06-07 by mouth Luke s MG tablet 11:11: 00:00 every 8 Medi heriberto 26 :00 (eight) Center hours as needed for Nausea. thiamine 2021-2021- No 100mg QD Take [address] [facility] 100 MG 6- 06-07 mg by [facility] 11:11: 00:00 mouth Medical 26 :00 daily. [place] chlordiazeP 2021-2021- No 10mg Q.[id number] Take [address] [facility] OXIDE 6- 06-07 [id number] by mouth 3 L ukes (LIBRIUM) 11:11: 00:00 3D (three) Medi heriberto 10 MG 26 :00 times Center capsule daily. multivitami 2021-2021- No 1{tbl} QD Take [address] n with - 06-07 tablet by [facility] 11:11: 00:00 mouth Medical tablet 26 :00 daily. [place] ondansetron 2021-2021- No 4mg Take [address] [facility] (ZOFRAN) 4 6- 06-07 by mouth Luke s MG tablet 11:11: 00:00 every 8 Medi heriberto 26 :00 (eight) Center hours as needed for Nausea. thiamine 2021-0 2021- No 100mg QD Take [address] [facility] 100 MG 6-07 06-07 mg by [facility] 11:11: 00:00 mouth Medical 26 :00 daily. [place] chlordiazeP 2021-0 2- No 10mg [id number] Take [address] [facility] OXIDE 6-07 06-07 [id number] by mouth 3 L ukes (LIBRIUM) 11:11: 00:00 3D (three) Medi heriberto 10 MG 26 :00 times Center capsule daily. multivitami 2021-2021- No 1{tbl} QD Take [address] n with 12-28-07 tablet by [facility] 11:11: 00:00 mouth Medical tablet 26 :00 daily. Center ondansetron 2021- 2022- No 4mg Take [address] [facility] (ZOFRAN) 4 6- 06-07 by mouth Luke s MG tablet 11:11: 00:00 every 8 Medi heriberto 26 :00 (eight) Center hours as needed for Nausea. thiamine 2021-2021- No 100mg QD Take [address] [facility] 100 MG - 06-07 mg by [facility] 11:11: 00:00 mouth Medical 26 :00 daily. Center chlordiazeP 2021-2021- No 10mg Q.[id number] Take [address] [facility] OXIDE 6-01 26- [id number] by mouth 3 L ukes (LIBRIUM) 11:11: 00:00 3D (three) Medi heriberto 10 MG 26 :00 times Center capsule daily. multivitami 2021-2021- No 1{tbl} QD Take [address] n with 12-28- tablet by [facility] 11:11: 00:00 mouth Medical tablet 26 :00 daily. Center ondansetron 2021-2021- No 4mg Take [address] [facility] (ZOFRAN) 4 - 06-07 by mouth Luke s MG tablet 11:11: 00:00 every 8 Medi heriberto 26 :00 (eight) Center hours as needed for Nausea. thiamine 2021-0 2- No 100mg QD Take [address] [facility] 100 MG - 06-07 mg by [facility] 11:11: 00:00 mouth Medical 26 :00 daily. Center chlordiazeP 2021-0 2021- No 10mg Q.[id number] Take [address] [facility] OXIDE 6- 06-07 [id number] by mouth 3 L ukes (LIBRIUM) 11:11: 00:00 3D (three) Medi heriberto 10 MG 26 :00 times Center capsule daily. multivitami 2021-2021- No 1{tbl} QD Take [address] n with -01 26-07 tablet by [facility] 11:11: 00:00 mouth Medical tablet 26 :00 daily. [place] ondansetron 2021-2021- No 4mg Take [address] [facility] (ZOFRAN) 4 -01 26-07 by mouth Luke s MG tablet 11:11: 00:00 every 8 Medi heriberto 26 :00 (eight) Center hours as needed for Nausea. thiamine 2021-2021- No 100mg QD Take [address] [facility] 100 MG 6- 06-07 mg by [facility] 11:11: 00:00 mouth Medical 26 :00 daily. [place] chlordiazeP 2021-2021- No 10mg Q.[id number] Take [address] [facility] OXIDE 6-01 26- [id number] by mouth 3 L ukes (LIBRIUM) 11:11: 00:00 3D (three) Medi heriberto 10 MG 26 :00 times Center capsule daily. multivitami 2021-2021- No 1{tbl} QD Take [address] n with 12-28-07 tablet by [facility] 11:11: 00:00 mouth Medical tablet 26 :00 daily. [place] ondansetron 2021-2021- No 4mg Take [address] [facility] (ZOFRAN) 4 12-28-07 by mouth Luke s MG tablet 11:11: 00:00 every 8 Medi heriberto 26 :00 (eight) Center hours as needed for Nausea. thiamine 2021-2021- No 100mg QD Take [address] [facility] 100 MG - 06-07 mg by [facility] 11:11: 00:00 mouth Medical 26 :00 daily. [place] chlordiazeP 2021-2021- No 10mg Q.[id number] Take [address] [facility] OXIDE -01 26- [id number] by mouth 3 L ukes (LIBRIUM) 11:11: 00:00 3D (three) Medi heriberto 10 MG 26 :00 times Center capsule daily. multivitami 2021-2021- No 1{tbl} QD Take [address] n with - 06-07 tablet by [facility] 11:11: 00:00 mouth Medical tablet 26 :00 daily. [place] ondansetron 2021- No 4mg Take [address] [facility] (ZOFRAN) 4 12-28-07 by mouth Luke s MG tablet 11:11: 00:00 every 8 Medi heriberto 26 :00 (eight) Center hours as needed for Nausea. thiamine 2021-2021- No 100mg QD Take [address] [facility] 100 MG 6- 06-07 mg by [facility] 11:11: 00:00 mouth Medical 26 :00 daily. Center multivitami 2021-2021- No 1{tbl} QD Take [address] n with -01 27- tablet [facility] 00:00: 23:59 mouth Medical tablet 00 :00 daily for Center 30 days. thiamine 2021-2021- No 100mg QD Take 1 [facility] -01 27- tablet [facility] 00:00: 23:59 (100 mg Medical 00 :00 total) by Center mouth daily for 30 days. QUEtiapine 2021-2021- No 25mg QD Take [address] [facility] (SEROquel) 12-28- tablet (25 Amanda kes 25 MG 00:00: 23:59 mg total) Medica l tablet 00 :00 by mouth Center nightly for 30 days. multivitami 2021-2021- No 1{tbl} QD Take [address] n with 12-28-07 tablet by [facility] 00:00: 23:59 mouth Medical tablet 00 :00 daily for Center 30 days. thiamine 2021-2021- No 100mg QD Take 1 [facility] 12-28- tablet [facility] 00:00: 23:59 (100 mg Medical 00 :00 total) by Center mouth daily for 30 days. QUEtiapine 2021-0 2021- No 25mg QD Take [address] [facility] (SEROquel) 6-01 27-07 tablet (25 Amanda kes 25 MG 00:00: 23:59 mg total) Medica l tablet 00 :00 by mouth Center nightly for 30 days. multivitami 2021- No 1{tbl} QD Take [address] n with 6-01 27-07 tablet [facility] 00:00: 23:59 mouth Medical tablet 00 :00 daily for Center 30 days. thiamine 2021-2021- No 100mg QD Take 1 [facility] -01 27- tablet [facility] 00:00: 23:59 (100 mg Medical 00 :00 total) by Center mouth daily for 30 days. QUEtiapine 2021-0 2021- No 25mg QD Take [address] [facility] (SEROquel) 6-01 27-07 tablet (25 Amanda kes 25 MG 00:00: 23:59 mg total) Medica l tablet 00 :00 by mouth Center nightly for 30 days. multivitami 2021-2021- No 1{tbl} QD Take [address] n with -01 27- tablet by [facility] 00:00: 23:59 mouth Medical tablet 00 :00 daily for Center 30 days. thiamine 2021-2021- No 100mg QD Take 1 [facility] -01 27- tablet [facility] 00:00: 23:59 (100 mg Medical 00 :00 total) by Center mouth daily for 30 days. QUEtiapine 2021-0 2021- No 25mg QD Take [address] [facility] (SEROquel) -01 27-07 tablet (25 Amanda kes 25 MG 00:00: 23:59 mg total) Medica l tablet 00 :00 by mouth Center nightly for 30 days. multivitami 2021-2021- No 1{tbl} QD Take [address] n with -01 27- tablet by [facility] 00:00: 23:59 mouth Medical tablet 00 :00 daily for Center 30 days. thiamine 2021-0 2021- No 100mg QD Take 1 [facility] -01 27- tablet [facility] 00:00: 23:59 (100 mg Medical 00 :00 total) by Center mouth daily for 30 days. QUEtiapine 2021-0 2021- No 25mg QD Take [address] [facility] (SEROquel) -01 27-07 tablet (25 Amanda kes 25 MG 00:00: 23:59 mg total) Medica l tablet 00 :00 by mouth Center nightly for 30 days. multivitami 2021-2021- No 1{tbl} QD Take [address] n with 6-01 27-07 tablet [facility] 00:00: 23:59 mouth Medical tablet 00 :00 daily for Center 30 days. thiamine 2021-0 2- No 100mg QD Take 1 [facility] -01 27- tablet [facility] 00:00: 23:59 (100 mg Medical 00 :00 total) by Center mouth daily for 30 days. QUEtiapine 2021-0 2- No 25mg QD Take [address] [facility] (SEROquel) 12-28- tablet (25 Amanda kes 25 MG 00:00: 23:59 mg total) Medica l tablet 00 :00 by mouth Center nightly for 30 days. multivitami 2021-0 2021- No 1{tbl} QD Take [address] n with 12-28- tablet by [facility] 00:00: 23:59 mouth Medical tablet 00 :00 daily for Center 30 days. thiamine 2021-0 2021- No 100mg QD Take 1 [facility] -01 27- tablet [facility] 00:00: 23:59 (100 mg Medical 00 :00 total) by Center mouth daily for 30 days. QUEtiapine 2021-0 2021- No 25mg QD Take [address] [facility] (SEROquel) 12-28- tablet (25 Amanda kes 25 MG 00:00: 23:59 mg total) Medica l tablet 00 :00 by mouth Center nightly for 30 days. multivitami 2021-0 2021- No 1{tbl} QD Take [address] n with 12-28- tablet by [facility] 00:00: 23:59 mouth Medical tablet 00 :00 daily for Center 30 days. thiamine 2021-0 2- No 100mg QD Take 1 [facility] -01 27- tablet [facility] 00:00: 23:59 (100 mg Medical 00 :00 total) by Center mouth daily for 30 days. QUEtiapine 2021-0 2- No 25mg QD Take [address] [facility] (SEROquel) 12-28- tablet (25 Amanda kes 25 MG 00:00: 23:59 mg total) Medica l tablet 00 :00 by mouth Center nightly for 30 days. ondansetron 2021-0 2021- No 4mg Take [address] [facility] (ZOFRAN) 4 6-07 06-17 tablet (4 Andrew es MG tablet 00:00: 23:59 mg total) Me dical 00 :00 by mouth Center every 8 (eight) hours as needed for Nausea for up to 10 days. ondansetron 2021-0 2- No 4mg Take [address] [facility] (ZOFRAN) 4 6- 06-17 tablet (4 Andrew es MG tablet 00:00: 23:59 mg total) Me dical 00 :00 by mouth Center every 8 (eight) hours as needed for Nausea for up to 10 days. ondansetron 2021-0 2021- No 4mg Take [address] [facility] (ZOFRAN) 4 6 06-17 tablet (4 Andrew es MG tablet 00:00: 23:59 mg total) Me dical 00 :00 by mouth Center every 8 (eight) hours as needed for Nausea for up to 10 days. ondansetron 2021-0 2021- No 4mg Take [address] [facility] (ZOFRAN) 4 12-28-17 tablet (4 Andrew es MG tablet 00:00: 23:59 mg total) Me dical 00 :00 by mouth Center every 8 (eight) hours as needed for Nausea for up to 10 days. ondansetron 2021-0 2021- No 4mg Take [address] [facility] (ZOFRAN) 4 12-28-17 tablet (4 Andrew es MG tablet 00:00: 23:59 mg total) Me dical 00 :00 by mouth Center every 8 (eight) hours as needed for Nausea for up to 10 days. ondansetron 2021-0 2021- No 4mg Take [address] [facility] (ZOFRAN) 4 12-28-17 tablet (4 Andrew es MG tablet 00:00: 23:59 mg total) Me dical 00 :00 by mouth Center every 8 (eight) hours as needed for Nausea for up to 10 days. ondansetron 2021-0 2- No 4mg Take [address] [facility] (ZOFRAN) 4 6- 06-17 tablet (4 Andrew es MG tablet 00:00: 23:59 mg total) Me dical 00 :00 by mouth Center every 8 (eight) hours as needed for Nausea for up to 10 days. ondansetron 2021-0 2- No 4mg Take [address] [facility] (ZOFRAN) 4 6-07 06-17 tablet (4 Andrew es MG tablet 00:00: 23:59 mg total) Me dical 00 :00 by mouth Center every 8 (eight) hours as needed for Nausea for up to 10 days. chlordiazeP 2022-0 2022- No 10mg QD Take [address] [facility] OXIDE 6- 06-12 capsule [facility] (LIBRIUM) 00:00: 23:59 (10 mg Medic al 10 MG 00 :00 total) by Center capsule mouth daily for 5 days. Max Daily Amount: 10 mg chlordiazeP 2022-0 2022- No 10mg QD Take [address] [facility] OXIDE 6- 06-12 capsule [facility] (LIBRIUM) 00:00: 23:59 (10 mg Medic al 10 MG 00 :00 total) by Center capsule mouth daily for 5 days. Max Daily Amount: 10 mg chlordiazeP 2022-0 2022- No 10mg QD Take [address] [facility] OXIDE 6-01 26-12 capsule [facility] (LIBRIUM) 00:00: 23:59 (10 mg Medic al 10 MG 00 :00 total) by Center capsule mouth daily for 5 days. Max Daily Amount: 10 mg chlordiazeP 2022-0 2022- No 10mg QD Take [address] [facility] OXIDE 6- 06-12 capsule [facility] (LIBRIUM) 00:00: 23:59 (10 mg Medic al 10 MG 00 :00 total) by Center capsule mouth daily for 5 days. Max Daily Amount: 10 mg chlordiazeP 2022-0 2022- No 10mg QD Take [address] [facility] OXIDE 6- 06-12 capsule [facility] (LIBRIUM) 00:00: 23:59 (10 mg Medic al 10 MG 00 :00 total) by Center capsule mouth daily for 5 days. Max Daily Amount: 10 mg chlordiazeP 2022-0 2022- No 10mg QD Take [address] [facility] OXIDE 6-07 06-12 capsule [facility] (LIBRIUM) 00:00: 23:59 (10 mg Medic al 10 MG 00 :00 total) by Center capsule mouth daily for 5 days. Max Daily Amount: 10 mg chlordiazeP 2022-0 2022- No 10mg QD Take [address] [facility] OXIDE 6- 06-12 capsule [facility] (LIBRIUM) 00:00: 23:59 (10 mg Medic al 10 MG 00 :00 total) by Center capsule mouth daily for 5 days. Max Daily Amount: 10 mg chlordiazeP 10mg QD Take [address] [facility] OXIDE 12-28 capsule [facility] (LIBRIUM) 00:00: 23:59 (10 mg Medic al 10 MG 00 :00 total) by Center capsule mouth daily for 5 days. Max Daily Amount: 10 mg Vital Signs Vital Name Observation Time Observation Value Comments Source Systolic blood 2022-10-09 17:21:00 128 mm[Hg] Univer sity of pressure [facility] Diastolic blood 2022-10-09 17:21:00 89 mm[Hg] Unive rsity of pressure [facility] Heart rate 2022-10-09 17:21:00 107 /min [facility] Body temperature 2022-10-09 17:21:00 36.5 Carley [facility] ersity of [facility] Respiratory rate 2022-10-09 17:21:00 18 /min Univ ersity of [facility] Oxygen saturation in 2022-10-09 17:21:00 98 /min [facility] of Arterial blood by [facility] Pulse oximetry Branch Body height 2022-10-07 20:10:00 162.6 cm [facility] ty [facility] [place] Body weight 2022-10-07 20:10:00 68.04 kg [facility] BMI 2022-10-07 20:10:00 25.75 kg/m2 [facility] Systolic blood 2022-08-24 18:43:00 139 mm[Hg] Univer sity of pressure [facility] Diastolic blood 2022-08-24 18:43:00 79 mm[Hg] Unive rsity of pressure [facility] Heart rate 2022-08-24 18:43:00 63 /min [facility]i ty [facility] [place] Body temperature 2022-08-24 18:43:00 36.33 Car[place] Univ ers[facility] of [facility] Respiratory rate 2022-08-24 18:43:00 19 /min Univ ersity of [facility] Oxygen saturation in 2022-08-24 18:43:00 99 /min [facility] Arterial blood by [employer] heriberto Pulse oximetry Branch Body height 2022-08-23 14:57:00 162.6 cm [facility]i ty [facility] Body weight 2022-08-23 14:57:00 69.4 kg [facility] BMI 2022-08-23 14:57:00 26.26 kg/m2 [facility] Height 2022-06-08 22:19:00 162.56 CM Weight 2022-06-08 22:19:00 66.22 KG WEIGHT 2021-12-18 11:00:00 64.819 kg HEIGHT 2021-12-18 11:00:00 162.6 cm WEIGHT 2021-12-18 11:00:00 64.819 kg HEIGHT 2021-12-18 11:00:00 162.6 cm Systolic blood 2021-12-28 08:35:00 114 mm[Hg] [facility] Diastolic blood 2021-12-28 08:35:00 66 mm[Hg] [facility] Heart rate 2021-12-28 08:35:00 85 /min [facility] Body temperature 2021-12-28 08:35:00 36.61 [facility] Respiratory rate 2021-12-28 08:35:00 18 /min [facility] Oxygen saturation in 2021-12-28 08:35:00 97 /min [facility] Arterial blood by Medical Ce nter Pulse oximetry Body height 2021-12-18 11:00:[address] [facility] Body weight 2021-12-18 11:00:[address] [facility] BMI 2021-12-18 11:00:00 24.53 kg/m2 [facility] Procedures Procedure Date / Time Performing Source Performed Clinician AUTHORIZATION FOR RELEASE OF PHI 2022-10-18 Doctor [facility] 05:01:00 Unassigned, No [facility] MAGNESIUM 2022-10-09 Caro Starks [facility] 10:24:00 [facility] HEPATIC FUNCTION PANEL ([id number]) 2022-10-09 Caro Starks [facility] of (ALB,T.PRO,BILI 10:24:00 [facility],BU/BC,ALT,AST,ALK PHOS) [place] BASIC METABOLIC PANEL (NA, K, CL, 2022-10-09 Caro Starks [place] of CO2, GLUCOSE, BUN, CREATININE, CA) 10:24:00 [facility] CBC WITH DIFF 2022-10-09 Caro Starks [place] of 10:24:00 [facility] PROTHROMBIN TIME / INR 2022-10-09 Caro Starks [facility] y of 10:24:00 [facility] CBC WITHOUT DIFF 2022-10-08 Tabatha Groves [place] of 22:45:00 [facility] MAGNESIUM 2022-10-08 [facility] 10:28:00 [facility] HEPATIC FUNCTION PANEL ([id number]) 2022-10-08 Tabatha Groves niversity of (ALB,T.PRO,BILI 10:28:00 [facility] T,BU/BC,ALT,AST,ALK PHOS) [place] BASIC METABOLIC PANEL (NA, K, CL, 2022-10-08 [facility] of CO2, GLUCOSE, BUN, CREATININE, CA) 10:28:00 [facility] CBC WITH DIFF 2022-10-08 [facility] 10:28:00 [facility] IRON PANEL 2022-10-07 [facility] of 22:55:00 [facility] BLOOD CULTURE SCREEN 2022-10-07 Tabatha Groves [place] of 19:11:00 [facility] BLOOD CULTURE SCREEN 2022-10-07 Tabatha Groves [place] of 18:30:00 [facility] TROPONIN I 2022-10-07 Tabatha Groves [place] of 16:28:00 [facility] HEPATIC FUNCTION PANEL ([id number]) 2022-10-07 Tabatha Groves niversity of (ALB,T.PRO,BILI 16:28:00 [facility] T,BU/BC,ALT,AST,ALK PHOS) [place] BASIC METABOLIC PANEL (NA, K, CL, 2022-10-07 Patricia Groves i [place] of CO2, GLUCOSE, BUN, CREATININE, CA) 16:28:00 [facility] CBC WITH DIFF 2022-10-07 Tabatha Groves [place] of 16:28:00 [facility] PROTHROMBIN TIME / INR 2022-10-07 [facility] 16:28:00 [facility] ACTIVATED PARTIAL THRMPLAS JOVAN 2022-10-07 GrovesTabatha U niversity of 16:28:00 [facility] FIBRINOGEN 2022-10-07 [facility] 16:28:00 [facility] HB ABO GROUPING 2022-10-07 GrovesTabatah [place] of 16:28:00 [facility] EXTERNAL PROVIDER RECORDS 2022-09-01 [facility] 06:01:00 Unassigned, No [facility] COMP. METABOLIC PANEL ([id number]) 2022-08-24 Maya Nguyen iversity of 10:03:00 [facility] CBC WITH DIFF 2022-08-24 PatrickRa marryReplaced by [facility] of 10:03:00 [facility] PROTHROMBIN TIME / INR 2022-08-23 [facility] 19:38:00 [facility] FIBRINOGEN 2022-08-23 [facility] of 19:38:00 [facility] ESOPHAGOGASTRODUODENOSCOPY 2022-08-23 [facility] of 15:26:00 [facility] EGD (ENDO) 2022-08-23 [facility] of 15:18:04 [facility] MAGNESIUM 2022-08-23 Ulysses Allen of 07:39:00 [facility] BASIC METABOLIC PANEL (NA, K, CL, 2022-08-23 Ulysses Allen of CO2, GLUCOSE, BUN, CREATININE, CA) 07:39:00 [facility] CBC WITH DIFF 2022-08-23 Ulysses Allen of 07:39:00 [facility] ENDOSCOPY PROCEDURE DOCUMENTATION 2022-08-23 [place] of 06:01:00 Unassigned, No [facility] TRANSTHORACIC ECHO (TTE) COMPLETE 2022-08-22 Ulysses Allen of 20:45:45 [facility] URINALYSIS 2022-08-22 [place] of 20:06:00 [facility] COVID-19 (ID NOW RAPID TESTING) 2022-08-22 [place] of 17:35:00 [facility] LAB ONLY COVID INTERPRETATION 2022-08-22 Stone [place] iversity of 17:35:00 [facility] CBC WITHOUT DIFF 2022-08-22 Alejandro Ulysses [place] of 17:01:00 [facility] FIBRINOGEN 2022-08-22 Ale[facility] of 17:00:00 [facility] DUPLEX VENOUS LEGS BILATERAL - BY 2022-08-22 [place] of VASCULAR LAB 16:45:27 [facility] XR CHEST 1 VW 2022-08-22 Stone [place] of 14:52:51 [facility] TRANSFUSE PACKED RBC 2022-08-22 Stone Obregon [place] of 10:33:00 [facility] PREPARE PACKED RBC 2022-08-22 Stone Obregon [place] of 10:17:48 [facility] POCT GLUCOSE (AUTOMATED) 2022-08-22 Rivka Palacios ity of 10:04:00 [facility] TROPONIN I 2022-08-22 [place] of 08:16:00 [facility] HEPATIC FUNCTION PANEL ([id number]) 2022-08-22 [place] niversity of (ALB,T.PRO,BILI 08:16:00 [facility],BU/BC,ALT,AST,ALK PHOS) [place] BASIC METABOLIC PANEL (NA, K, CL, 2022-08-22 [place] of CO2, GLUCOSE, BUN, CREATININE, CA) 08:16:00 [facility] ABORH CONFIRMATION (LAB ONLY) 2022-08-22 Stone Obregon iversity of 08:12:00 [facility] HB ABO GROUPING 2022-08-22 [place] of 05:59:00 [facility] US ABDOMEN LIMITED 2022-08-22 [place] of 04:56:28 [facility] BLOOD CULTURE SCREEN 2022-08-22 [place] of 03:52:00 [facility] ETHANOL 2022-08-22 [place] of 03:51:00 [facility] PROTHROMBIN TIME / INR 2022-08-22 [facility] y of 03:51:00 [facility] ACTIVATED PARTIAL THRMPLAS JOVAN 2022-08-22 [place] niversity of 03:51:00 [facility] MAGNESIUM 2022-08-22 [place] of 03:24:00 [facility] FERRITIN SERUM 2022-08-22 Sabas [facility] of 03:24:00 [facility] VITAMIN B12, LEVEL 2022-08-22 Sabas [facility] of 03:24:00 [facility] FOLATE 2022-08-22 Sabas [facility] of 03:24:00 [facility] TROPONIN I 2022-08-22 Sabas [facility] of 03:24:00 [facility] HEPATIC FUNCTION PANEL ([id number]) 2022-08-22 Stone [place] niversity of (ALB,T.PRO,BILI 03:24:00 [facility],BU/BC,ALT,AST,ALK PHOS) [place] BASIC METABOLIC PANEL (NA, K, CL, 2022-08-22 Sabas [facility] CO2, GLUCOSE, BUN, CREATININE, CA) 03:24:00 [facility] LIPID PANEL ([id number])(TOTAL 2022-08-22 Stone Obregon [facility] sity of CHOLESTEROL, TRIGLYCERIDES, HDL) 03:24:00 [facility] IRON PANEL 2022-08-22 Sabas [facility] 03:24:00 [facility] SALICYLATE 2022-08-22 Sabas [facility] 03:24:00 [facility] CBC WITH DIFF 2022-08-22 Sabas [facility] of 03:24:00 [facility] GLYCOSYLATED HEMOGLOBIN (A1C) 2022-08-22 Stone Obregon iversity of 03:24:00 [facility] HEPATITIS B SURFACE ANTIBODY 2022-08-22 Stone Obregon versity of 03:24:00 [facility] HEPATITIS B SURFACE ANTIGEN 2022-08-22 Stone Obregon ersity of 03:24:00 [facility] HCV ANTIBODY 2022-08-22 Sabas [facility] of 03:24:00 [facility] HEPATITIS B CORE ANTIBODY IGM 2022-08-22 Stone Obregon iversity of 03:24:00 [facility] HAV ANTIBODY (IGG AND IGM) 2022-08-22 Stone Obreogn rsity of 03:24:00 [facility] HEPATITIS C VIRUS (HCV) BY 2022-08-22 Stone [place]regon rsity of QUANTITATIVE NAAT 03:24:00 [facility] EXTRA TUBE RED 2022-08-22 Suzanne [facility] of 03:24:00 [facility] HB ECG ROUTINE & RHYTHM STRIP 2022-08-22 Stone Obregon Un iversity of 01:50:38 [facility] CBC W/PLT COUNT & AUTO 2021-12-28 Remy Kay Mcelroy [facility] DIFFERENTIAL 04:28:00 [facility] (MANUAL DIFFERENTIAL) 2021-12-28 [address] 04:28:00 [facility] CBC W/PLT COUNT & AUTO 2021-12-28 Remy Kay Mcelroy [facility] DIFFERENTIAL 04:28:00 [facility] COMPREHENSIVE METABOLIC PANEL 2021-12-28 Remy, Kay Cruzaryann [facility] 04:28:00 [facility] MAGNESIUM 2021-12-28 Chema Albertoedwina Cruzaryann [facility] 04:28:00 [facility] XR CHEST 1 VIEW PORTABLE / BEDSIDE 2021-12-28 Kay Alberto andre [facility] 01:23:00 [facility] CBC (HEMOGRAM ONLY) 2021-12-27 Tiara, Marcel [facility] 03:38:00 [facility] BASIC METABOLIC PANEL 2021-12-27 Tiara[facility] 03:[facility]00 [facility] US ABDOMEN LIMITED 2021-12-26 Tiara, Marcel [facility] 17:53:00 [facility] CBC (HEMOGRAM ONLY) 2021-12-26 Tiara, Marcel [facility] 04:34:00 [facility] BASIC METABOLIC PANEL 2021-12-26 Tiara, Marcel [facility] MAGNESIUM 2021-12-26 Tiara, Marcel [facility] 04:34:00 [facility] CBC (HEMOGRAM ONLY) 2021-12-25 Tiara, Marcel [facility] 10:57:00 [facility] BASIC METABOLIC PANEL 2021-12-25 Tiara, Marcel [facility] 10:57:00 [facility] BASIC METABOLIC PANEL 2021-12-24 Tiara, Marcel [facility] 04:54:00 [facility] BASIC METABOLIC PANEL 2021-12-23 Nisnisan, Josier [facility] MAGNESIUM 2021-12-23 Nisnisan, Josier [facility] 04:39:00 [facility] BASIC METABOLIC PANEL 2021-12-[address] [facility] 06:13:00 [facility] MAGNESIUM 2021-12-[address] [facility] 06:13:00 [facility] CBC (HEMOGRAM ONLY) 2021-12-[address] [facility] 06:13:00 [facility] BASIC METABOLIC PANEL 2021-12-[address] [facility] [facility] 05:08:00 [facility] MAGNESIUM 2021-12-[address] [facility] 05:08:00 [facility] CBC (HEMOGRAM ONLY) 2021-12-[address] [facility] 05:08:00 [facility] CBC W/PLT COUNT & AUTO 2021-12-20 Pongvachararak, [facility] DIFFERENTIAL 06:45:00 Formerly Named [facility] CBC W/PLT COUNT & AUTO 2021-12-20 Pongvachararak, [facility] DIFFERENTIAL 06:45:00 Former[facility] Named [facility] COMPREHENSIVE METABOLIC PANEL 2021-12-20 Pongvachararak, [facility] 06:45:00 [facility] PREPARE LEUKO-REDUCED RBC 2021-12-19 Ellis, Mobin [facility] 23:54:00 [facility] CBC W/PLT COUNT & AUTO 2021-12-19 Pongvachararak, [facility] DIFFERENTIAL 05:52:00 Formerly Named [facility] CBC W/PLT COUNT & AUTO 2021-12-19 Pongvachararak, [facility] DIFFERENTIAL 05:52:00 Formerly Named [facility] COMPREHENSIVE METABOLIC PANEL 2021-12-19 Pongvachararak, [facility] 05:52:00 [facility] TRANSFUSE LEUKO-REDUCED RED BLOOD 2021-12-18 Ellis, Mobin [facility] CELLS 14:42:00 [facility] ABORH, MANUAL 2021-12-18 Ellis, Mobin [facility] 10:42:00 [facility] CBC W/PLT COUNT & AUTO 2021-12-18 Pongvachararak, [facility] DIFFERENTIAL 06:21:00 [facility] HEPATIC FUNCTION PANEL 2021-12-[address] [facility] 06:21:00 [facility] LIPID PANEL 2021-12-18 Estefany, [facility] 06:21:00 [facility] PROTHROMBIN TIME/INR 2021-12-18 Estefany[facility] 06:21[facility] CBC W/PLT COUNT & AUTO 2021-12-18 Estefany, [facility] DIFFERENTIAL 06:21:00 Formerly Named [facility] AMMONIA 2021-12-18 Estefany, [facility] 06:21:00 [facility]amed [facility] COMPREHENSIVE METABOLIC PANEL 2021-12-[address] [facility] 06:21:00 [facility] TYPE AND SCREEN, AUTOMATED 2021-12-18 Estefany [facility] 06:21:00 [facility] EKG-SCANNED 2021-12-18 Provider, Default [facility] 00:00:00 [facility] Plan of Care Planned Activity Planned Date Details Comments Source Future Scheduled 2024-12-18 Lipid panel (procedure) [facility] 00:00:00 [code = [id number]] Medical Ce nter Future Scheduled 2024-12-18 Lipid panel (procedure) [facility] 00:00:00 [code = [id number]] Medical Ce nter Future Scheduled 2024-12-18 Lipid panel (procedure) [facility] 00:00:00 [code = [id number]] Medical Ce nter Future Scheduled 2024-12-18 Lipid panel (procedure) [facility] 00:00:00 [code = [id number]] Medical Ce nter Future Scheduled 2024-12-18 Lipid panel (procedure) [facility] 00:00:00 [code = 73102067] Medical Ce nter Future Scheduled 2024-12-18 Lipid panel (procedure) [facility] 00:00:00 [code = 88573953] Medical Ce nter Future Scheduled 2024-12-18 Lipid panel (procedure) [facility] 00:00:00 [code = [id number]] Medical Ce nter Future Scheduled 2024-12-18 Lipid panel (procedure) [facility] 00:00:00 [code = [id number]] Medical Ce nter Future Scheduled 2023-03-[address] [facility] 00:00:00 (Season Ended) [code = Medic al Center INFLUENZA VACCINE (Season Ended)] Future Scheduled 2023-03-[address] [facility] 00:00:00 (Season Ended) [code = Medic al Center INFLUENZA VACCINE (Season Ended)] Future Scheduled 2023-03-[address] [facility] 00:00:00 (Season Ended) [code = Medic al Center INFLUENZA VACCINE (Season Ended)] Future Scheduled 2023-03-[address] [facility] 00:00:00 (Season Ended) [code = Medic al Center INFLUENZA VACCINE (Season Ended)] Future Scheduled 2022-07-[address] [facility] 00:00:00 (12+) [code = Medical Center DEPRESSION SCREENING (12+)] Future Scheduled 2022-07-[address] [facility] 00:00:00 (12+) [code = Medical Center DEPRESSION SCREENING (12+)] Future Scheduled 2022-07-[address] [facility] 00:00:00 (12+) [code = Medical Center DEPRESSION SCREENING (12+)] Future Scheduled 2022-07-[address] [facility] 00:00:00 (12+) [code = Medical Center DEPRESSION SCREENING (12+)] Future Scheduled 2022-07-[address] [facility] 00:00:00 (12+) [code = Medical Center DEPRESSION SCREENING (12+)] Future Scheduled 2022-07-[address] [facility] 00:00:00 (12+) [code = Medical Center DEPRESSION SCREENING (12+)] Future Scheduled 2022-03-24 INFLUENZA VACCINE (#1) [facility]00 [code = INFLUENZA Medical Ce nter VACCINE (#1)] Future Scheduled 2022-03-24 INFLUENZA VACCINE (#1) [facility] 00:00:00 [code = INFLUENZA Medical Ce nter VACCINE (#1)] Future Scheduled 2022-03-24 INFLUENZA VACCINE (#1) [facility] 00:00:00 [code = INFLUENZA Medical Ce nter VACCINE (#1)] Future Scheduled 2022-03-24 INFLUENZA VACCINE (#1) [facility] 00:00:00 [code = INFLUENZA Medical Ce nter VACCINE (#1)] Future Scheduled 2021-07-[address] [facility] 00:00:00 (12+) [code = Medical Center DEPRESSION SCREENING (12+)] Future Scheduled 2021-07-[address] [facility] 00:00:00 (12+) [code = Medical Center DEPRESSION SCREENING (12+)] Future Scheduled 2014 SHINGLES VACCINES ([address] [facility] 00:00:00 2) [code = SHINGLES Medical Center VACCINES (1 of 2)] Future Scheduled 2014 SHINGLES VACCINES ([address] [facility] 00:00:00 2) [code = SHINGLES Medical Center VACCINES (1 of 2)] Future Scheduled 2014 SHINGLES VACCINES ([address] [facility] 00:00:00 2) [code = SHINGLES Medical Center VACCINES (1 of 2)] Future Scheduled 2014 SHINGLES VACCINES ([address] [facility] 00:00:00 2) [code = SHINGLES Medical Center VACCINES (1 of 2)] Future Scheduled 2014 SHINGLES VACCINES ([address] [facility] 00:00:00 2) [code = SHINGLES Medical Center VACCINES (1 of 2)] Future Scheduled 2014 SHINGLES VACCINES ([address] [facility] 00:00:00 2) [code = SHINGLES Medical Center VACCINES (1 of 2)] Future Scheduled 2014 SHINGLES VACCINES ([address] [facility] 00:00:00 2) [code = SHINGLES Medical Center VACCINES (1 of 2)] Future Scheduled 2014 SHINGLES VACCINES ([address] [facility] 00:00:00 2) [code = SHINGLES Medical Center VACCINES (1 of 2)] Future Scheduled 1983-11-21 DTAP/TDAP/TD [facility]ACCINES [facility] 00:00:00 (1 - Tdap) [code = Medical C enter DTAP/TDAP/TD VACCINES (1 - Tdap)] Future Scheduled 1983-11-21 DTAP/TDAP/TD VACCINES [facility] 00:00:00 (1 - Tdap) [code = Medical C enter DTAP/TDAP/TD VACCINES (1 - Tdap)] Future Scheduled 1983-11-21 DTAP/TDAP/TD VACCINES [facility] 00:00:00 (1 - Tdap) [code = Medical C enter DTAP/TDAP/TD VACCINES (1 - Tdap)] Future Scheduled 1983-11-21 DTAP/TDAP/TD VACCINES [facility] 00:00:00 (1 - Tdap) [code = Medical C enter DTAP/TDAP/TD VACCINES (1 - Tdap)] Future Scheduled 1983-11-21 DTAP/TDAP/TD VACCINES [facility] 00:00:00 (1 - Tdap) [code = Medical C enter DTAP/TDAP/TD VACCINES (1 - Tdap)] Future Scheduled 1983-11-21 DTAP/TDAP/TD VACCINES [facility] 00:00:00 (1 - Tdap) [code = Medical C enter DTAP/TDAP/TD VACCINES (1 - Tdap)] Future Scheduled 1983-11-21 DTAP/TDAP/TD VACCINES [facility] 00:00:00 (1 - Tdap) [code = Medical C enter DTAP/TDAP/TD VACCINES (1 - Tdap)] Future Scheduled 1983-11-21 DTAP/TDAP/TD VACCINES [facility] 00:00:00 (1 - Tdap) [code = Medical C enter DTAP/TDAP/TD VACCINES (1 - Tdap)] Future Scheduled 1982 HEPATITIS C [facility]CRE[facility]ING [facility] 00:00:00 [code = HEPATITIS C Medical Center SCREENING] Future Scheduled 1982 HEPATITIS C [facility]CRE[facility] 00:00:00 [code = HEPATITIS C Medical Center SCREENING] Future Scheduled 1982 HEPATITIS C [facility]CRE[facility] 00:00:00 [code = HEPATITIS C Medical Center SCREENING] Future Scheduled 1982 HEPATITIS C [facility] 00:00:00 [code = HEPATITIS C Medical Center SCREENING] Future Scheduled 1982 HEPATITIS C [facility] 00:00:00 [code = HEPATITIS C Medical Center SCREENING] Future Scheduled 1982 HEPATITIS C [facility] 00:00:00 [code = HEPATITIS C Medical Center SCREENING] Future Scheduled 1982 HEPATITIS C [facility] 00:00:00 [code = HEPATITIS C Medical Center SCREENING] Future Scheduled 1982 HEPATITIS C [facility] 00:00:00 [code = HEPATITIS C Medical Center SCREENING] Future Scheduled [address] [facility] 00:00:00 Counseling and Medical Cente r Screening (12+) [code = Tobacco Cessation Counseling and Screening (12+)] Future Scheduled [address] [facility] 00:00:00 Counseling and Medical Cente r Screening (12+) [code = Tobacco Cessation Counseling and Screening (12+)] Future Scheduled [address] [facility] 00:00:00 Counseling and Medical Cente r Screening (12+) [code = Tobacco Cessation Counseling and Screening (12+)] Future Scheduled [address] [facility] 00:00:00 Counseling and Medical Cente r Screening (12+) [code = Tobacco Cessation Counseling and Screening (12+)] Future Scheduled [address] [facility] 00:00:00 Counseling and Medical Cente r Screening (12+) [code = Tobacco Cessation Counseling and Screening (12+)] Future Scheduled [address] [facility] 00:00:00 Counseling and Medical Cente r Screening (12+) [code = Tobacco Cessation Counseling and Screening (12+)] Future Scheduled [address] [facility] 00:00:00 0-64 YRS (1 - PCV) Medical C enter [code = PNEUMOCOCCAL VACCINE 0-64 YRS (1 - PCV)] Future Scheduled [address] [facility] 00:00:00 0-64 YRS (1 - PCV) Medical C enter [code = PNEUMOCOCCAL VACCINE 0-64 YRS (1 - PCV)] Future Scheduled [address] [facility] 00:00:00 0-64 YRS (1 - PCV) Medical C enter [code = PNEUMOCOCCAL VACCINE 0-64 YRS (1 - PCV)] Future Scheduled [address] [facility] 00:00:00 0-64 YRS (1 - PCV) Medical C enter [code = PNEUMOCOCCAL VACCINE 0-64 YRS (1 - PCV)] Future Scheduled [address] [facility] 00:00:00 0-64 YRS (1 - PCV) Medical C enter [code = PNEUMOCOCCAL VACCINE 0-64 YRS (1 - PCV)] Future Scheduled [address] [facility] 00:00:00 0-64 YRS (1 - PCV) Medical C enter [code = PNEUMOCOCCAL VACCINE 0-64 YRS (1 - PCV)] Future Scheduled [address] [facility] 00:00:00 0-64 YRS (1 - PCV) Medical C enter [code = PNEUMOCOCCAL VACCINE 0-64 YRS (1 - PCV)] Future Scheduled [address] [facility] 00:00:00 0-64 YRS (1 - PCV) Medical C enter [code = PNEUMOCOCCAL VACCINE 0-64 YRS (1 - PCV)] Future Scheduled 1965-05-22 COVID-19 VACCINE (#1) [facility] 00:[facility]:00 [code = COVID-[address] VACCINE (#1)] Future Scheduled 1965-05-22 COVID-19 VACCINE (#1) [facility] 00:00:00 [code = COVID-[address] VACCINE (#1)] Future Scheduled 1965-05-22 COVID-19 VACCINE (#1) [facility] 00:00:00 [code = COVID-[address] VACCINE (#1)] Future Scheduled 1965-05-22 COVID-19 VACCINE (#1) [facility] 00:00:00 [code = COVID-[address] VACCINE (#1)] Future Scheduled 1965-05-22 COVID-19 VACCINE (#1) [facility] 00:00:00 [code = COVID-[address] VACCINE (#1)] Future Scheduled 1965-05-22 COVID-19 VACCINE (#1) [facility] 00:00:00 [code = COVID-[address] VACCINE (#1)] Future Scheduled 1965-05-22 COVID-19 VACCINE (#1) [facility] 00:00:00 [code = COVID-[address] VACCINE (#1)] Future Scheduled 1965-05-22 COVID-19 VACCINE (#1) [facility] 00:00:00 [code = COVID-[address] VACCINE (#1)] Future Scheduled 1964 CT Colonography (combo) [facility] 00:00:00 [code = CT Colonography [facility] (combo)] Future Scheduled 1964 Screening for malignant [facility] 00:00:00 neoplasm of colon Medical Ce nter (procedure) [code = 315546520] Future Scheduled 1964 Screening for malignant [facility] 00:00:00 neoplasm of colon Medical Ce nter (procedure) [code = 536141860] Future Scheduled 1964 Screening for malignant [facility] 00:00:00 neoplasm of colon Medical Ce nter (procedure) [code = 407755403] Future Scheduled 1964 Screening for malignant [facility] 00:00:00 neoplasm of colon Medical Ce nter (procedure) [code = 371356440] Future Scheduled 1964 Sigmoidoscopy [code = [facility] S[facility]oidoscopy] Medical Cente r Future Scheduled 1964 CT Colonography (combo) [facility] 00:00:00 [code = CT Colonography [facility] (combo)] Future Scheduled 1964 Screening for malignant [facility] 00:00:00 neoplasm of colon Medical Ce nter (procedure) [code = 643499501] Future Scheduled 1964 Screening for malignant [facility] 00:00:00 neoplasm of colon Medical Ce nter (procedure) [code = 807052598] Future Scheduled 1964 Screening for malignant [facility] 00:00:00 neoplasm of colon Medical Ce nter (procedure) [code = 301775792] Future Scheduled 1964 Screening for malignant [facility] 00:00:00 neoplasm of colon Medical Ce nter (procedure) [code = 710868181] Future Scheduled 1964 Sigmoidoscopy [facility]code = [facility] Sigmoidoscopy] Medical Yasmanye r Future Scheduled 1964 CT Colonography (combo) [facility] 00:00:00 [code = [facility] Future Scheduled 1964 Screening for malignant [facility] 00:00:00 neoplasm of colon Medical Ce nter (procedure) [code = 038005670] Future Scheduled 1964 Screening for malignant [facility] 00:00:00 neoplasm of colon Medical Ce nter (procedure) [code = 051999097] Future Scheduled 1964 Screening for malignant [facility] 00:00:00 neoplasm of colon Medical Ce nter (procedure) [code = 597900186] Future Scheduled 1964 Screening for malignant [facility] 00:00:00 neoplasm of colon Medical Ce nter (procedure) [code = 983952759] Future Scheduled 1964 Sigmoidoscopy [code = [facility] 00:[facility] Sigmoidoscopy] Medical Yasmanye r Future Scheduled 1964 CT Colonography (combo) [facility] 00:00:00 [code = [facility] ([facility])] Future Scheduled 1964 Screening for malignant [facility] 00:00:00 neoplasm of colon Medical Ce nter (procedure) [code = 048870345] Future Scheduled 1964 Screening for malignant [facility] 00:00:00 neoplasm of colon Medical Ce nter (procedure) [code = 949241573] Future Scheduled 1964 Screening for malignant [facility] 00:00:00 neoplasm of colon Medical Ce nter (procedure) [code = 050338945] Future Scheduled 1964 Screening for malignant [facility] 00:00:00 neoplasm of colon Medical Ce nter (procedure) [code = 410526878] Future Scheduled 1964 Sigmoidoscopy [code = [facility] 00:[facility] Sigmoidoscopy] Medical Cente r Future Scheduled 1964 CT Colonography (combo) [facility] 00:00:00 [code = [facility] ([facility])] Future Scheduled 1964 Screening for malignant [facility] 00:00:00 neoplasm of colon Medical Ce nter (procedure) [code = 684536835] Future Scheduled 1964 Screening for malignant [facility] 00:00:00 neoplasm of colon Medical Ce nter (procedure) [code = 366480739] Future Scheduled 1964 Screening for malignant [facility] 00:00:00 neoplasm of colon Medical Ce nter (procedure) [code = 401398215] Future Scheduled 1964 Screening for malignant [facility] 00:00:00 neoplasm of colon Medical Ce nter (procedure) [code = 781699983] Future Scheduled 1964 Sigmoidoscopy [code = [facility] 00:[facility] Sigmoidoscopy] Medical Cente r Future Scheduled 1964 CT Colonography (combo) [facility] 00:00:00 [code = CT Colonography [facility] (combo)] Future Scheduled 1964 Screening for malignant [facility] 00:00:00 neoplasm of colon Medical Ce nter (procedure) [code = 976295501] Future Scheduled 1964 Screening for malignant [facility] 00:00:00 neoplasm of colon Medical Ce nter (procedure) [code = 983200322] Future Scheduled 1964 Screening for malignant [facility] 00:00:00 neoplasm of colon Medical Ce nter (procedure) [code = 878739547] Future Scheduled 1964 Screening for malignant [facility] 00:00:00 neoplasm of colon Medical Ce nter (procedure) [code = 695007229] Future Scheduled 1964 Sigmoidoscopy [code = [facility] 00:[facility] Sigmoidoscopy] Medical Cente r Future Scheduled 1964 CT Colonography (combo) [facility] 00:00:00 [code = CT [facility] ([facility])] Future Scheduled 1964 Screening for malignant [facility] 00:00:00 neoplasm of colon Medical Ce nter (procedure) [code = 912123760] Future Scheduled 1964 Screening for malignant [facility] 00:00:00 neoplasm of colon Medical Ce nter (procedure) [code = 799356630] Future Scheduled 1964 Screening for malignant [facility] 00:00:00 neoplasm of colon Medical Ce nter (procedure) [code = 029252478] Future Scheduled 1964 Screening for malignant [facility] 00:00:00 neoplasm of colon Medical Ce nter (procedure) [code = 828388903] Future Scheduled 1964 Sigmoidoscopy [code = [facility] 00:[facility] Sigmoidoscopy] Medical Cente r Future Scheduled 1964 CT Colonography (combo) [facility] 00:00:00 [code = CT Colonography [facility] (combo)] Future Scheduled 1964 Screening for malignant [facility] 00:00:00 neoplasm of colon Medical Ce nter (procedure) [code = 329228189] Future Scheduled 1964 Screening for malignant [facility] 00:00:00 neoplasm of colon Medical Ce nter (procedure) [code = 924458030] Future Scheduled 1964 Screening for malignant [facility] 00:00:00 neoplasm of colon Medical Ce nter (procedure) [code = 126658662] Future Scheduled 1964 Screening for malignant [facility] 00:00:00 neoplasm of colon Medical Ce nter (procedure) [code = 432443275] Future Scheduled 1964 Sigmoidoscopy [facility]code = [facility] 00:[facility] Sigmoidoscopy] Medical Cente r Encounters Start End Encounter Admission Attending Care Care Encounter Source Date/Time Date/Time Type Type Clinicians Facility Department ID 2022-09-27 Inpatient TEXANA TEXANA [id number] [place] 08:40:44 [id number] [place] 2022-03-17 Inpatient TEXANA TEXANA [id number] [place] 08:41:23 [id number] [place] 2022-02-01 Inpatient TEXANA TEXANA [id number] [place] 10:02:35 [id number] [place] 2022-01-21 Inpatient TEXANA TEXANA [id number] [place] 12:27:16 [id number] [place] 2022-01-20 Inpatient TEXANA TEXANA [id number] [place] 08:13:32 [id number] [place] 2022-10-262022-10-26 Emergency ER JULIUS, [facility] D000 [id number] [place] 00:01:00 05:12:00 PRESTON -[id number] [facility] 2022-10-24 2022-10-24 Emergency ER JULIUS, [facility] D000 [id number] [place] 00:39:00 07:00:00 PRESTON -[id number] [facility] 2022-10-18 2022-10-18 Orders Doctor GRANT [id number] [facility] 00:00:00 00:00:00 Only Unassigned, GERARDO [id number] ity of [place] [id number] [place]angel as [phone] [facility] [address] 2022-10-07 2022-10-09 Outpatient U SENIA [facility] [id number] Univers 10:10:00 15:15:00 RUBEN it y of [facility] 2022-10-07 2022-10-09 [facility] Pardeep Moody 1.2. [id number] [facility] 10:10:00 15:15:00 Encounter Ruben Conn GERARDO 350.1.13 .10 ity of [place] [id number] [place] as [id number] [facility] [address] 2022-09-28 2022-09-28 Emergency ER Julius, [facility] D000 [id number] [place] 01:38:00 06:55:00 [place] -[id number] [facility] 2022-09-20 2022-09-20 Outpatient SHIMEK_LIZZ CAHOP MEHOP [id number] [place] 00:00:00 00:00:00 _ANN [id number] [facility] 2022-09-15 2022-09-15 Outpatient SHIMEK_LIZZ CAHOP MEHOP 120 [id number] [place] 00:00:00 00:00:00 _ANN [id number] [facility] 2022-09-01 2022-09-01 Orders Doctor GRANT [id number] Univers 00:00:00 00:00:00 Only Unassigned, GERARDO [id number] ity of [facility] [id number] [place]angel as [phone] [facility] [address] 2022-08-25 2022-08-25 Transition TENNILLE Partida [id number] [facility] 00:00:00 00:00:00 of Care Tamraa DICKSONY [id number] ity of [place] [id number] [id number] [facility] [address] 2022-08-25 2022-08-25 Telephone CAROL NguyenNIE [id number] [facility] 00:00:00 00:00:00 Raakning CARRILLO 350.1.13.10 it y of [facility] [id number] [place] as [id number] [facility] [address] 2022-08-21 2022-08-24 Inpatient U PALACIOS, [facility] [id number] Univers 19:04:00 14:48:00 RIVKA ity of [facility] 2022-08-21 2022-08-24 [facility] Palacios, Rivka Carleen REYES [id number]. [id number] Univers 19:04:00 14:48:00 Encounter Sujit Vazquze GERARDO 350.1.13. 10 ity of [facility] [id number] [place] as [id number] [facility] [address] 2022-06-08 2022-06-09 Outpatient E JEOVANY [facility] [id number] [facility] 22:06:00 01:10:00 KARRI [facility] 2022-05-20 2022-05-20 Outpatient FLOR RAY [id number] [place] 09:20:24 09:20:24 F Liam 2022-04-21 2022-04-21 Outpatient Ryanen_Shirao KAY CAMALLORIE [id number] [place] 00:00:00 00:00:00 [id number] da [facility] 2022-04-21 2022-04-21 [facility] [id number] [place] 00:00:00 00:00:00 [id number] [facility] 2022-02-24 2022-02-24 Outpatient Edna [facility] [id number] [place] 00:00:00 00:00:00 [id number] [facility] 2021-12-18 2021-12-28 Inpatient ER KAY ALBERTO [facility] Internal [id number] [facility] 03:17:00 14:00:00 Med 2021-12-18 2021-12-28 Hospital Kay [place] [facility] [id number] [id number] [facility] 03[facility]17[facility]00 14:00:00 Encounter [facility] 2021-12-18 2021-12-18 Travel [facility] [id number] [facility] 00[facility]00 [facility] 2019-03-27 2019-03-27 Outpatient [facility] [id number] [facility] 09:29:00 10:45:00 [facility] Results Test Description Test Time Test Comments Results Result Comments Source BASIC METABOLIC PANEL (NA, K, CL, CO2, GLUCOSE, BUN, 2022-09 11:07:02 CREATININE, CA) Test Item Value Reference Range Interpretation Comme nts NA (test code = 4456467130) 136 mmol/L 135-145 K (test code = 1303700506) 3.6 mmol/L 3.5-5.0 CL (test code = 3815548315) 107 mmol/L 98-108 CO2 TOTAL (test code = 8062847622) 25 mmol/L 23-31 AGAP (test code = 7586086603) 4 2-16 BUN (test code = 7132653568) 10 mg/dL 7-23 GLUCOSE (test code = 3281813652) 101 mg/dL 70-110 CREATININE (test code = 0.73 mg/dL 0.60-1.25 4894839915) CALCIUM (test code = 3210602512) 7.6 mg/dL 8.6-10.6 L eGFR (test code = 5728918941) 110.7 mL/min/1.73m2 TERESA (test code = TERESA) Association of Glomerular Filtration Rate (GFR) and Staging of Kidney Disease* + +-------- + ------+| GFR (mL/min/1.73 m2) ?| With Kidney Damage ?| ?Without Kidney Damage+ +-- + +| ?>90 ?| ?Stage one ?| ? Normal ?+ +------- + -------+| ?60-89 ?| ?Stage two ?| ? Decreased GFR ? + +-------- + ------+| ?30-59 ?| ?Stage three ?| ? Stage three ? + +-------- + ------+| ?15-29 ?| ?Stage four ? | ? Stage four ?+ +------- + -------+| ?<15 (or dialysis) ? ?| ?Stage five ? | ? Stage five ?+ +------- + -------+ *Each stage assumes the associated GFR level has been in effect for at least three months. ?Stages 1 to 5, with or without kidney disease, indicate chronic kidney disease. Notes: Determination of stages one and two (with eGFR >59mL/min/1.73 m2) requires estimation of kidney damage for at least three months as defined by structural or functional abnormalities of the kidney, manifested by either:Pathological abnormalities or Markers of kidney damage (including abnormalities in the composition of the blood or urine or abnormalities in imaging tests). Lab Interpretation (test code = Abnormal 06010-4) [facility]07[facility]02 Test Item Value Reference Range Interpretation Comments MAGNESIUM (test code = 1140889703) 1.6 mg/dL 1.7-2.4 L Lab Interpretation (test code = Abnormal 85322-6) [facility] (58363[facility] (ALB,T.PRO,BILI T,BU/BC,ALT,AST,ALK PHOS)2022-10-09 11:07:02 Test Item Value Reference Range Interpretation Comments TOTAL BILI (test code = 6998053374) 1.4 mg/dL 0.1-1.1 H BILI UNCON (test code = 9279565294) 0.5 mg/dL 0.1-1.1 BILI CONJ (test code = 8140716564) 0.0 mg/dL 0.0-0.3 T PROTEIN (test code = 9358665963) 7.2 g/dL 6.3-8.2 ALBUMIN (test code = 6302812149) 2.9 g/dL 3.5-5.0 L ALK PHOS (test code = 5089726507) 70 U/L 34-122 ALTv (test code = 1742-6) 36 U/L 5-50 AST(SGOT) (test code = 5814513334) 99 U/L 13-40 H Lab Interpretation (test code = Abnormal 24368-6) [facility]th[facility] / [id number] 10:41:05 Test Item Value Reference Range Interpretation Comments PROTIME PATIENT (test 15.4 See_Comment H [Auto mated message] code = 5964-2) The system wh ich generated this result transmitted ref erence range: 10.1 - 1 2.6 Seconds. The reference range was not used to int erpret this result as normal/abnormal . INR (test code = 6301-6) 1.4 Nor mal INR <1.1; Warfarin Therap eutic range 2.0 to 3. 0 or 2.5 to 3.5, dep ending upon the indica tions. Lab Interpretation (test Abnormal code = 14458-8) [facility] WITH [id number] 10:35:00 Test Item Value Reference Range Interpretation Comments WBC (test code = 6.14 See_Comment [Automated 2790-2) message] The sy stem which generated this result transmitted reference range : 4.20 - 10.70 10*3/?L. The reference range was not used to interpret this result as normal/abnormal . RBC (test code = 2.42 See_Comment L [Automated 579-8) message] The sy stem which generated this result transmitted reference range : 4.26 - 5.52 10*6/?L. The reference range was not used to interpret this result as normal/abnormal . HGB (test code = 7.2 g/dL 12.2-16.4 L 718-7) HCT (test code = 22.3 % 38.4-49.3 L 4544-3) MCV (test code = 92.1 fL 81.7-95.6 787-2) MCH (test code = 29.8 pg 26.1-32.7 785-6) MCHC (test code = 32.3 g/dL 31.2-35.0 786-4) RDW-SD (test code = 62.5 fL 38.5-51.6 H 94090-4) RDW-CV (test code = 18.5 % 12.1-15.4 H 788-0) PLT (test code = 102 See_Comment L [Automated 777-3) message] The sy stem which generated this result transmitted reference range : 150 - 328 10*3/ ?L. The reference r geri was not used to interpret this result as normal/abnormal . MPV (test code = 10.6 fL 9.8-13.0 90144-6) NRBC/100 WBC (test 0.0 See_Comment [Automat ed code = 0454702552) message] The system which generated this result transmitted reference range : 0.0 - 10.0 /100 WBCs. The refer ence range was not u sed to interpret th is result as normal/abnormal . NRBC x10^3 (test code See_Comment [Auto mated = 6927224289) message] The s ystem which generated this result transmitted reference range : 10*3/?L. The reference range was not used to interpret this result as normal/abnormal . GRAN MAT (NEUT) % 52.9 % (test code = 770-8) IMM GRAN % (test code 0.30 % = 1314146995) LYMPH % (test code = 25.1 % 736-9) MONO % (test code = 16.0 % 5905-5) EOS % (test code = 4.1 % 713-8) BASO % (test code = 1.6 % 706-2) GRAN MAT x10^3(ANC) 3.25 10*3/uL 1.99-6.95 (test code = 3457543464) IMM GRAN x10^3 (test 0.00-0.06 code = 9125981629) LYMPH x10^3 (test code 1.54 10*3/uL 1.09-3.23 = 731-0) MONO x10^3 (test code 0.98 10*3/uL 0.36-1.02 = 742-7) EOS x10^3 (test code = 0.25 10*3/uL 0.06-0.53 711-2) BASO x10^3 (test code 0.10 10*3/uL 0.01-0.09 H = 704-7) Lab Interpretation Abnormal (test code = 60924-9) [facility] (16545[facility] (ALB,T.PRO,BILI T,BU/BC,ALT,AST,ALK PHOS)2022-10-08 14:50:02 Test Item Value Reference Range Interpretation Comments TOTAL BILI (test code = 9894842821) 1.3 mg/dL 0.1-1.1 H BILI UNCON (test code = 3962210958) 0.7 mg/dL 0.1-1.1 BILI CONJ (test code = 8142990657) 0.0 mg/dL 0.0-0.3 T PROTEIN (test code = 0490050391) 6.8 g/dL 6.3-8.2 ALBUMIN (test code = 5422739164) 3.0 g/dL 3.5-5.0 L ALK PHOS (test code = 6748897382) 96 U/L 34-122 ALTv (test code = 1742-6) 35 U/L 5-50 AST(SGOT) (test code = 4279134213) 106 U/L 13-40 H Lab Interpretation (test code = Abnormal 84200-0) [facility] WITH [id number] 11:09:50 Test Item Value Reference Range Interpretation Comments WBC (test code = 6.51 See_Comment [Automated 5765-2) message] The sy stem which generated this result transmitted reference range : 4.20 - 10.70 10*3/?L. The reference range was not used to interpret this result as normal/abnormal . RBC (test code = 2.46 See_Comment L [Automated 288-8) message] The sy stem which generated this result transmitted reference range : 4.26 - 5.52 10*6/?L. The reference range was not used to interpret this result as normal/abnormal . HGB (test code = 7.4 g/dL 12.2-16.4 L 718-7) HCT (test code = 22.2 % 38.4-49.3 L 4544-3) MCV (test code = 90.2 fL 81.7-95.6 787-2) MCH (test code = 30.1 pg 26.1-32.7 785-6) MCHC (test code = 33.3 g/dL 31.2-35.0 786-4) RDW-SD (test code = 63.6 fL 38.5-51.6 H 41201-8) RDW-CV (test code = 19.2 % 12.1-15.4 H 788-0) PLT (test code = 107 See_Comment L [Automated 777-3) message] The sy stem which generated this result transmitted reference range : 150 - 328 10*3/ ?L. The reference r geri was not used to interpret this result as normal/abnormal . MPV (test code = 10.1 fL 9.8-13.0 89732-2) IPF % (test code = 4.4 % 1.2-10.7 Platelet count 9043814456) measured by fluorescence method. NRBC/100 WBC (test 0.0 See_Comment [Automat ed code = 4415523724) message] The system which generated this result transmitted reference range : 0.0 - 10.0 /100 WBCs. The refer ence range was not u sed to interpret th is result as normal/abnormal . NRBC x10^3 (test code See_Comment [Auto mated = 0878312435) message] The s ystem which generated this result transmitted reference range : 10*3/?L. The reference range was not used to interpret this result as normal/abnormal . GRAN MAT (NEUT) % 46.8 % (test code = 770-8) IMM GRAN % (test code 0.30 % = 7810255302) LYMPH % (test code = 31.5 % 736-9) MONO % (test code = 16.6 % 5905-5) EOS % (test code = 3.4 % 713-8) BASO % (test code = 1.4 % 706-2) GRAN MAT x10^3(ANC) 3.05 10*3/uL 1.99-6.95 (test code = 1436492613) IMM GRAN x10^3 (test 0.00-0.06 code = 1968837148) LYMPH x10^3 (test code 2.05 10*3/uL 1.09-3.23 = 731-0) MONO x10^3 (test code 1.08 10*3/uL 0.36-1.02 H = 742-7) EOS x10^3 (test code = 0.22 10*3/uL 0.06-0.53 711-2) BASO x10^3 (test code 0.09 10*3/uL 0.01-0.09 = 704-7) Lab Interpretation Abnormal (test code = 63453-5) [facility] METABOLIC PANEL (NA, K, CL, CO2, GLUCOSE, BUN, CREATININE, CA)2022-10-08 11:01:09 Test Item Value Reference Range Interpretation Comments NA (test code = 137 mmol/L 135-145 2103680925) K (test code = 4.0 mmol/L 3.5-5.0 8788277288) CL (test code = 105 mmol/L 98-108 2963652651) CO2 TOTAL (test code = 28 mmol/L 23-31 4631565187) AGAP (test code = 4 2-16 3436063456) BUN (test code = 12 mg/dL 7-23 3378573540) GLUCOSE (test code = 112 mg/dL 70-110 H 3104983985) CREATININE (test code = 0.87 mg/dL 0.60-1.25 6349818486) CALCIUM (test code = 7.8 mg/dL 8.6-10.6 L 7546132126) eGFR (test code = 90.4 mL/min/1.73m2 4465601396) TERESA (test code = TERESA) Association of Glomerular Filtration Rate (GFR) and Staging of Kidney Disease* + --+ --+ ------+| GFR (mL/min/1.73 m2) ?| With Kidney Damage ?| ?Without Kidney Damage+ --------+ --------+ +| ?>90 ?| ?Stage one ?| ? Normal ?+ ---+ ---+ -------+| ?60-89 ?| ?Stage two ?| ? Decreased GFR ? + --+ --+ ------+| ?30-59 ?| ?Stage three ?| ? Stage three ? + --+ --+ ------+| ?15-29 ?| ?Stage four ? | ? Stage four ?+ ---+ ---+ -------+| ?<15 (or dialysis) ? ?| ?Stage five ? | ? Stage five ?+ ---+ ---+ -------+ *Each stage assumes the associated GFR level has been in effect for at least three months. ?Stages 1 to 5, with or without kidney disease, indicate chronic kidney disease. Notes: Determination of stages one and two (with eGFR >59mL/min/1.73 m2) requires estimation of kidney damage for at least three months as defined by structural or functional abnormalities of the kidney, manifested by either:Pathological abnormalities or Markers of kidney damage (including abnormalities in the composition of the blood or urine or abnormalities in imaging tests). Lab Interpretation Abnormal (test code = 35540-9) [facility] 11:01:09 Test Item Value Reference Range Interpretation Comments MAGNESIUM (test code = 2047547142) 1.4 mg/dL 1.7-2.4 L Lab Interpretation (test code = Abnormal 40833-6) [facility] (NA, K, CL, CO2, GLUCOSE, BUN, CREATININE, CA)2022-08-23 08:22:04 Test Item Value Reference Range Interpretation Comments NA (test code = 135 mmol/L 135-145 0101123186) K (test code = 3.6 mmol/L 3.5-5.0 4875708258) CL (test code = 104 mmol/L 98-108 3535828178) CO2 TOTAL (test code = 26 mmol/L 23-31 9040734610) AGAP (test code = 5 2-16 3441016680) BUN (test code = 12 mg/dL 7-23 8492602872) GLUCOSE (test code = 120 mg/dL 70-110 H 4592879128) CREATININE (test code = 1.00 mg/dL 0.60-1.25 0390892298) CALCIUM (test code = 7.3 mg/dL 8.6-10.6 L 8075892842) eGFR (test code = 77.0 mL/min/1.73m2 3908074473) TERESA (test code = TERESA) Association of Glomerular Filtration Rate (GFR) and Staging of Kidney Disease* + --+ --+ ------+| GFR (mL/min/1.73 m2) ?| With Kidney Damage ?| ?Without Kidney Damage+ --------+ --------+ +| ?>90 ?| ?Stage one ?| ? Normal ?+ ---+ ---+ -------+| ?60-89 ?| ?Stage two ?| ? Decreased GFR ? + --+ --+ ------+| ?30-59 ?| ?Stage three ?| ? Stage three ? + --+ --+ ------+| ?15-29 ?| ?Stage four ? | ? Stage four ?+ ---+ ---+ -------+| ?<15 (or dialysis) ? ?| ?Stage five ? | ? Stage five ?+ ---+ ---+ -------+ *Each stage assumes the associated GFR level has been in effect for at least three months. ?Stages 1 to 5, with or without kidney disease, indicate chronic kidney disease. Notes: Determination of stages one and two (with eGFR >59mL/min/1.73 m2) requires estimation of kidney damage for at least three months as defined by structural or functional abnormalities of the kidney, manifested by either:Pathological abnormalities or Markers of kidney damage (including abnormalities in the composition of the blood or urine or abnormalities in imaging tests). Lab Interpretation Abnormal (test code = 94383-1) [facility] 08:22:04 Test Item Value Reference Range Interpretation Comments MAGNESIUM (test code = 2836110072) 1.6 mg/dL 1.7-2.4 L Lab Interpretation (test code = Abnormal 26284-6) [facility] WITH [id number] 08:21:28 Test Item Value Reference Range Interpretation Comments WBC (test code = 7.08 See_Comment [Automated 3490-2) message] The sy stem which generated this result transmitted reference range : 4.20 - 10.70 10*3/?L. The reference range was not used to interpret this result as normal/abnormal . RBC (test code = 2.87 See_Comment L [Automated 789-8) message] The sy stem which generated this result transmitted reference range : 4.26 - 5.52 10*6/?L. The reference range was not used to interpret this result as normal/abnormal . HGB (test code = 7.7 g/dL 12.2-16.4 L 718-7) HCT (test code = 23.9 % 38.4-49.3 L 4544-3) MCV (test code = 83.3 fL 81.7-95.6 787-2) MCH (test code = 26.8 pg 26.1-32.7 785-6) MCHC (test code = 32.2 g/dL 31.2-35.0 786-4) RDW-SD (test code = 52.6 fL 38.5-51.6 H 14415-7) RDW-CV (test code = 17.2 % 12.1-15.4 H 788-0) PLT (test code = 101 See_Comment L [Automated 777-3) message] The sy stem which generated this result transmitted reference range : 150 - 328 10*3/ ?L. The reference r geri was not used to interpret this result as normal/abnormal . MPV (test code = 10.5 fL 9.8-13.0 16570-3) IPF % (test code = 6.6 % 1.2-10.7 Platelet count 4324067863) measured by fluorescence method. NRBC/100 WBC (test 0.4 See_Comment [Automat ed code = 5558276497) message] The system which generated this result transmitted reference range : 0.0 - 10.0 /100 WBCs. The refer ence range was not u sed to interpret th is result as normal/abnormal . NRBC x10^3 (test code 0.03 See_Comment [Auto mated = 5163237831) message] The s ystem which generated this result transmitted reference range : 10*3/?L. The reference range was not used to interpret this result as normal/abnormal . GRAN MAT (NEUT) % 55.7 % (test code = 770-8) IMM GRAN % (test code 0.40 % = 9438593633) LYMPH % (test code = 24.0 % 736-9) MONO % (test code = 16.7 % 5905-5) EOS % (test code = 1.6 % 713-8) BASO % (test code = 1.6 % 706-2) GRAN MAT x10^3(ANC) 3.95 10*3/uL 1.99-6.95 (test code = 1564885761) IMM GRAN x10^3 (test 0.03 10*3/uL 0.00-0.06 code = 4676823448) LYMPH x10^3 (test code 1.70 10*3/uL 1.09-3.23 = 731-0) MONO x10^3 (test code 1.18 10*3/uL 0.36-1.02 H = 742-7) EOS x10^3 (test code = 0.11 10*3/uL 0.06-0.53 711-2) BASO x10^3 (test code 0.11 10*3/uL 0.01-0.09 H = 704-7) Lab Interpretation Abnormal (test code = 09501-6) [facility]CV[facility] BY QUANTITATIVE NAAT 2022-08-22 22:28:25 Test Item Value Reference Range Interpretation Comments HCV Quantitative NAAT 5.28 Not Detected log - log IU/mL (test code IU/mL = 68146-7) HCV Quantitative NAAT 537985 Not Detected - IU/mL (test code = IU/mL 52805-0) HCV Quantitative Detected Not Detected A Interpretation (test code = 4086075973) TERESA (test code = TERESA) The Aptima HCV Quant Dx assay is an FDA-approved real-time african studies professor-mediated amplification (TMA) test used for both detection and quantitation of hepatitis C virus (HCV) RNA in human serum and plasma from HCV-infected individuals. ?It is intended for use as an aid in the diagnosis of active HCV infection and the management of HCV-infected patients undergoing HCV antiviral drug therapy. ?It is not approved for use as a screening test for the presence of HCV RNA in blood or blood products. The quantitative range of this assay is 1.00 - 8.00 log IU/mL or 10 - 100,000,000 IU/mL. An interpretation of "Not Detected" does not rule out the presence of inhibitors in the patient specimen or HCV RNA concentration below the level of detection of the test. ?Care should be taken when interpreting any single viral load determination. Detected, not Quantifiable: HCV RNA detected, but at a level below 10 IU/mL (1.0 log IU/mL). ?HCV RNA concentration is below the lower limit of quantitation of the assay. Indeterminate: Error indicated in the generation of the result. ?Please submit a new specimen for repeat testing if clinically indicated. Lab Interpretation Abnormal (test code = 23546-9) [facility] Packed RBC (in units), 1 Units 2022-08-22 10:17:48 Test Item Value Reference Range Interpretation Comments Cross Match Result Compatible (test code = 4409) ISBT Blood Type Code 5100 (test code = 438071) Unit Blood Type (test O Pos code = 4410) Unit Number (test [id number] code = 4411) Blood Expiration Date & Time (test code = 291874) Status Information Issued (test code = 4412) Product Red Blood Cells Identification (test code = 4413) Product Code (test D5833N55 Performed at [facility] code = 4414) Laboratory Services - [facility] Blood [address] [place] [address]Mhiz Free: [phone] A No. [id number] [facility]OM[facility] GLUCOSE (AUTOMATED)2022-08-22 10:05:36 Test Item Value Reference Range Interpretation Comments POCT GLU (test code = 0659959049) 98 mg/dL 70-110 Lab Interpretation (test code = Normal 45796-7) [facility] CenterTR[facility] [id number] 09:07:59 Test Item Value Reference Interpretation Comments Range TROPONIN I (test 0.005 ng/mL See_Comment [Automated code = 6532663210) message] The system which generated this result transmitted reference range : <=0.034. The reference range was not used to interpret this result as normal/abnormal . TERESA (test code = Reference (Normal) TERESA) Range (defined by the 99th percentile reference limit): <= 0.034 ng/mL Note: Cardiac troponin begins to rise 3-4 hours after the onset of ischemia. Repeat in 4-6 hours if the sample was drawn within 3-4 hours of the onset of the symptom and found normal. Diagnosis of myocardial injury is made with acute changes in cTn concentrations with at least one serial sample above the 99th percentile upper reference limit (URL), taken together with the patient's clinical presentation. Biotin has been reported to cause a negative bias, interpret results relative to patient's use of biotin. Lab Interpretation Normal (test code = 39343-0) [facility] Metabolic Panel (NA, K, CL, CO2, GLUCOSE, BUN, CREATININE, CA)2022-08-22 08:55:20 Test Item Value Reference Range Interpretation Comments NA (test code = 140 mmol/L 135-145 4794410456) K (test code = 3.8 mmol/L 3.5-5.0 3072329768) CL (test code = 110 mmol/L 98-108 H 4098545401) CO2 TOTAL (test code = 21 mmol/L 23-31 L 2309313219) AGAP (test code = 9 2-16 7920429444) BUN (test code = 11 mg/dL 7-23 3748552061) GLUCOSE (test code = 58 mg/dL 70-110 L 5455332746) CREATININE (test code = 0.81 mg/dL 0.60-1.25 0692620018) CALCIUM (test code = 7.7 mg/dL 8.6-10.6 L 9245172966) eGFR (test code = 98.2 mL/min/1.73m2 4536383273) TERESA (test code = TERESA) Association of Glomerular Filtration Rate (GFR) and Staging of Kidney Disease* + --+ --+ ------+| GFR (mL/min/1.73 m2) ?| With Kidney Damage ?| ?Without Kidney Damage+ --------+ --------+ +| ?>90 ?| ?Stage one ?| ? Normal ?+ ---+ ---+ -------+| ?60-89 ?| ?Stage two ?| ? Decreased GFR ? + --+ --+ ------+| ?30-59 ?| ?Stage three ?| ? Stage three ? + --+ --+ ------+| ?15-29 ?| ?Stage four ? | ? Stage four ?+ ---+ ---+ -------+| ?<15 (or dialysis) ? ?| ?Stage five ? | ? Stage five ?+ ---+ ---+ -------+ *Each stage assumes the associated GFR level has been in effect for at least three months. ?Stages 1 to 5, with or without kidney disease, indicate chronic kidney disease. Notes: Determination of stages one and two (with eGFR >59mL/min/1.73 m2) requires estimation of kidney damage for at least three months as defined by structural or functional abnormalities of the kidney, manifested by either:Pathological abnormalities or Markers of kidney damage (including abnormalities in the composition of the blood or urine or abnormalities in imaging tests). Lab Interpretation Abnormal (test code = 69193-5) [facility] (79278) (ALB,T.PRO,BILI T,BU/BC,ALT,AST,ALK PHOS)2022-08-22 08:55:20 Test Item Value Reference Range Interpretation Comments TOTAL BILI (test code = 6780127025) 1.2 mg/dL 0.1-1.1 H BILI UNCON (test code = 2356176319) 0.3 mg/dL 0.1-1.1 BILI CONJ (test code = 3798907582) 0.0 mg/dL 0.0-0.3 T PROTEIN (test code = 5617890115) 7.3 g/dL 6.3-8.2 ALBUMIN (test code = 7225168102) 3.0 g/dL 3.5-5.0 L ALK PHOS (test code = 0866836734) 84 U/L 34-122 ALTv (test code = 1742-6) 31 U/L 5-50 AST(SGOT) (test code = 4987122391) 93 U/L 13-40 H Lab Interpretation (test code = Abnormal 05647-2) [facility] CenterABORH Confirmation (Lab Only)2022-08-22 08:27:46 Test Item Value Reference Range Interpretation Comments ABO & RH (test code O Positive Performe d at [facility] = 20) Laboratory Serv [facility] Blood Bank[address] [place] [address]Wnir Free: [phone] A No. [id number] [facility] CenterType and Screen - ONCE [id number] 07:42:14 Test Item Value Reference Range Interpretation Comments ABO & RH (test code O POSITIVE Performe d at [facility] = 20) Laboratory Serv [facility] Blood Bank3 [facility] [address]Wnbh Free: [phone] A No. [id number] IAT (test code = Negative Performed a t [facility] 1185) Laboratory Serv [facility] Blood Bank3 [facility] [address]Odaz Free: [phone] A No. [id number] [facility] CenterFOLATE2023-01-30 07:00:54 Test Item Value Reference Range Interpretation Comments FOLATE SER (test code = 3219820738) 9.3 ng/mL 3.0-20.0 Lab Interpretation (test code = Normal 62247-8) [facility] CenterHCV [id number] 05:36:54 Test Item Value Reference Range Interpretation Comments HCV Ab (test code = Positive 02989-8) HCV 27.90 Semi-Quantitative (test code = 21071-0) APRI (test code = 1.750 7766063608) TERESA (test code = Positive for HCV antibody. TERESA) This specimen has been reflexed to qualitative PCR test and submitted to [facility]. ?A report will be issued by that laboratory. ?If any questions, contact the Clinical Chemistry Director alliance consultant at [phone].APRI score < 0.5: Suggestive of little to no fibrosisAPRI score > 1.5: Suggestive of moderate to severe fibrosisAPRI score > 2.0: Highly suggestive of cirrhosis. [facility] CenterHEPATITIS B SURFACE [id number] 05:33:54 Test Item Value Reference Range Interpretation Comments HBsAB (test code = Negative 3602077095) HBsAb 0.00 mIU/mL Semi-Quantitative (test code = 5444021888) TERESA (test code = Interpretation: TERESA) ?Hepatitis B Surface Antibody ? Negative - Patient is considered to be not immune to infection with HBV. ? ? Positive - Anti-HBs detected at greater than or equal to 12 mIU/mL. ?Patient is considered to be immune to infection with HBV. ? [facility] CenterIRON [id number] 04:52:12 Test Item Value Reference Range Interpretation Comments IRON (test code = 1972229074) 20 ug/dL 50-160 L TIBC (test code = 2292314789) 486 ug/dL 250-410 H % FE SAT (test code = 7712733920) 4 % 20-50 L Lab Interpretation (test code = Abnormal 75472-8) [facility] CenterSALICYLATE2023-[facility]-30 04:44:00 SALICYLATE<10mg/L08/21/2022 10:44 PM [facility] LABORATORY SERVICESTherapeutic Range: ? Analgesic and Antipyretic Use ? 20-100 mg/L ? ? Anti- Inflammatory Use ? 100-250 mg/L Toxic Range: ? Greater than 300 mg/LUnDriscoll Children's HospitalACETAMINOPHEN 2022-08-22 04:43:55 Test Item Value Reference Range Interpretation Comments ACETAMINOP (test code = 10.0-30.0 L [id number]) TERESA (test code = TERESA) Toxic: Greater than 200 ug/mL @ 4 hour post ingestion or greater than 50 ug/mL @ 12 hour post ingestion Lab Interpretation (test Abnormal code = 11271-2) [facility] CenterVITAMIN B12, [id number] 04:38:09 Test Item Value Reference Range Interpretation Comments VIT B12 (test code = 524 pg/mL 240-930 1368919644) TERESA (test code = TERESA) Biotin has been reported to cause a positive bias, interpret results relative to patient's use of biotin. Lab Interpretation (test Normal code = 23272-4) [facility] CenterHAV ANTIBODY (IGG AND IGM)2022-08-22 04:34:23 Test Item Value Reference Range Interpretation Comments HAV Total (test code Positive = 8122755983) HAVT 0.01 Semi-Quantitative (test code = 2988428868) TERESA (test code = TERESA) Indicates past or present infection with HAV or exposure to HAV due to vaccination. [facility] CenterFERRITIN [id number] 04:31:12 Test Item Value Reference Range Interpretation Comments FERRITIN (test code = 8.0 ng/mL 18.0-464.0 L 7656977142) TERESA (test code = TERESA) Biotin has been reported to cause a negative bias, interpret results relative to patient's use of biotin. Lab Interpretation (test Abnormal code = 88209-4) [facility] CenterHEPATIGAR[facility] B CORE ANTIBODY [id number] 04:23:10 Test Item Value Reference Range Interpretation Comments HBCM 0.05 Semi-Quantitative (test code = 40184-3) TERESA (test code = Biotin has been reported TERESA) to cause a negative bias, interpret results relative to patient's use of biotin. [facility] CenterHEPATITIS B SURFACE [id number] 04:18:09 Test Item Value Reference Range Interpretation Comments HBsAg Semi-Quantitative (test code = 0.05 Negative 5195-3) [facility] CenterACTIVATED PARTIAL THRMPLAS [id number] 04:17:29 Test Item Value Reference Range Interpretation Comments APTT Patient (test code 47 See_Comment H [Au tomated message] = 3173-2) The system DocSea generated this result transmitted ref erence range: 26 - 36 Seconds. The reference range was not used to int erpret this result as normal/abnormal . Lab Interpretation (test Abnormal code = 51759-5) [facility] CenterProthrombin Time / [id number] 04:17:29 Test Item Value Reference Range Interpretation Comments PROTIME PATIENT (test 21.3 See_Comment H [Auto mated message] code = 5964-2) The system Yvolver generated this result transmitted ref erence range: 10.1 - 1 2.6 Seconds. The reference range was not used to int erpret this result as normal/abnormal . INR (test code = 6301-6) 1.9 Nor mal INR <1.1; Warfarin Therap eutic range 2.0 to 3. 0 or 2.5 to 3.5, dep ending upon the indica tions. Lab Interpretation (test Abnormal code = 85424-5) [facility] CenterETHANOL2023-01-30 04:10:05 Test Item Value Reference Range Interpretation Comments ALCOHOL (test code = 89 mg/dL 9156878898) TERESA (test code = Toxic Greater than or TERESA) equal to 80 mg/dL. NOTE: Whole blood values are approximately 10% to 15% lower than serum and plasma. [facility] CenterGLYCOSYLATED HEMOGLOBIN (A1C)2022-08-22 04:08:35 Test Item Value Reference Range Interpretation Comments HGB A1C (test code = 5.3 % 4.0-5.7 4548-4) TERESA (test code = TERESA) Reference RangesNormal: <5.7%Prediabetes: 5.7 - 6.4%Diabetes: > 6.5% Lab Interpretation (test Normal code = 32078-0) [facility] CenterTROPONIN [id number] 04:00:07 Test Item Value Reference Interpretation Comments Range TROPONIN I (test 0.005 ng/mL See_Comment [Automated code = 1462069539) message] The system which generated this result transmitted reference range : <=0.034. The reference range was not used to interpret this result as normal/abnormal . TERESA (test code = Reference (Normal) TERESA) Range (defined by the 99th percentile reference limit): <= 0.034 ng/mL Note: Cardiac troponin begins to rise 3-4 hours after the onset of ischemia. Repeat in 4-6 hours if the sample was drawn within 3-4 hours of the onset of the symptom and found normal. Diagnosis of myocardial injury is made with acute changes in cTn concentrations with at least one serial sample above the 99th percentile upper reference limit (URL), taken together with the patient's clinical presentation. Biotin has been reported to cause a negative bias, interpret results relative to patient's use of biotin. Lab Interpretation Normal (test code = 08622-2) [facility] CenterLIPID PANEL (16960)(TOTAL CHOLESTEROL, TRIGLYCERIDES, HDL)2022-08-22 03:48:09 Test Item Value Reference Range Interpretation Comments CHOL (test code = 84 mg/dL 120-200 L 6340394712) HDL (test code = 23 mg/dL See_Comment L [Automated message] 4930638957) The system DocSea generated this result transmitted ref erence range: >=40. Th e reference range was not used to int erpret this result as normal/abnormal . HDLC RATIO (test code = 3.7 See_Comment [Au tomated message] 2189257610) The system DocSea generated this result transmitted ref erence range: <=5.0. T he reference range was not used to int erpret this result as normal/abnormal . TRIG (test code = 85 mg/dL 30-170 1558759740) LDL CHOL (test code = 44 mg/dL See_Comment [Auto mated message] 29017-0) The system DocSea generated this result transmitted ref erence range: <=160. T he reference range was not used to int erpret this result as normal/abnormal . VLDL (test code = 17 mg/dL 5-60 4778008162) Lab Interpretation (test Abnormal code = 57701-7) [facility] METABOLIC PANEL (NA, K, CL, CO2, GLUCOSE, BUN, CREATININE, CA)2022-08-22 03:47:29 Test Item Value Reference Range Interpretation Comments NA (test code = 141 mmol/L 135-145 0405568523) K (test code = 3.9 mmol/L 3.5-5.0 3930575571) CL (test code = 109 mmol/L 98-108 H 3782517706) CO2 TOTAL (test code = 24 mmol/L 23-31 5387034036) AGAP (test code = 8 2-16 5785409662) BUN (test code = 11 mg/dL 7-23 5321323571) GLUCOSE (test code = 98 mg/dL 70-110 3929383454) CREATININE (test code = 0.74 mg/dL 0.60-1.25 3279795526) CALCIUM (test code = 7.8 mg/dL 8.6-10.6 L 5569070232) eGFR (test code = 109.0 mL/min/1.73m2 0457812154) TERESA (test code = TERESA) Association of Glomerular Filtration Rate (GFR) and Staging of Kidney Disease* + --+ --+ ------+| GFR (mL/min/1.73 m2) ?| With Kidney Damage ?| ?Without Kidney Damage+ --------+ --------+ +| ?>90 ?| ?Stage one ?| ? Normal ?+ ---+ ---+ -------+| ?60-89 ?| ?Stage two ?| ? Decreased GFR ? + --+ --+ ------+| ?30-59 ?| ?Stage three ?| ? Stage three ? + --+ --+ ------+| ?15-29 ?| ?Stage four ? | ? Stage four ?+ ---+ ---+ -------+| ?<15 (or dialysis) ? ?| ?Stage five ? | ? Stage five ?+ ---+ ---+ -------+ *Each stage assumes the associated GFR level has been in effect for at least three months. ?Stages 1 to 5, with or without kidney disease, indicate chronic kidney disease. Notes: Determination of stages one and two (with eGFR >59mL/min/1.73 m2) requires estimation of kidney damage for at least three months as defined by structural or functional abnormalities of the kidney, manifested by either:Pathological abnormalities or Markers of kidney damage (including abnormalities in the composition of the blood or urine or abnormalities in imaging tests). Lab Interpretation Abnormal (test code = 71484-5) [facility] CenterHEPATIC FUNCTION PANEL (07397) (ALB,T.PRO,BILI T,BU/BC,ALT,AST,ALK PHOS)2022-08-22 03:47:29 Test Item Value Reference Range Interpretation Comments TOTAL BILI (test code = 9211803291) 1.1 mg/dL 0.1-1.1 BILI UNCON (test code = 6780840945) 0.3 mg/dL 0.1-1.1 BILI CONJ (test code = 9561144751) 0.0 mg/dL 0.0-0.3 T PROTEIN (test code = 7235448977) 7.3 g/dL 6.3-8.2 ALBUMIN (test code = 8165481256) 3.0 g/dL 3.5-5.0 L ALK PHOS (test code = 0028586989) 83 U/L 34-122 ALTv (test code = 1742-6) 31 U/L 5-50 AST(SGOT) (test code = 8188060245) 77 U/L 13-40 H Lab Interpretation (test code = Abnormal 16675-5) [facility] CenterMAGNESIUM2023-01-30 03:47:29 Test Item Value Reference Range Interpretation Comments MAGNESIUM (test code = 4328646378) 1.5 mg/dL 1.7-2.4 L Lab Interpretation (test code = Abnormal 30401-7) [facility] CenterCB WITH [id number] 03:36:26 Test Item Value Reference Range Interpretation Comments WBC (test code = 6.22 See_Comment [Automated 6690-2) message] The sy stem which generated this result transmitted reference range : 4.20 - 10.70 10*3/?L. The reference range was not used to interpret this result as normal/abnormal . RBC (test code = 2.67 See_Comment L [Automated 789-8) message] The sy stem which generated this result transmitted reference range : 4.26 - 5.52 10*6/?L. The reference range was not used to interpret this result as normal/abnormal . HGB (test code = 6.9 g/dL 12.2-16.4 L 718-7) HCT (test code = 22.0 % 38.4-49.3 L 4544-3) MCV (test code = 82.4 fL 81.7-95.6 787-2) MCH (test code = 25.8 pg 26.1-32.7 L 785-6) MCHC (test code = 31.4 g/dL 31.2-35.0 786-4) RDW-SD (test code = 53.3 fL 38.5-51.6 H 38735-4) RDW-CV (test code = 17.7 % 12.1-15.4 H 788-0) PLT (test code = 110 See_Comment L [Automated 777-3) message] The sy stem which generated this result transmitted reference range : 150 - 328 10*3/ ?L. The reference r geri was not used to interpret this result as normal/abnormal . MPV (test code = 10.7 fL 9.8-13.0 08544-2) NRBC/100 WBC (test 0.3 See_Comment [Automat ed code = 7541149532) message] The system which generated this result transmitted reference range : 0.0 - 10.0 /100 WBCs. The refer ence range was not u sed to interpret th is result as normal/abnormal . NRBC x10^3 (test code 0.02 See_Comment [Auto mated = 5425006121) message] The s ystem which generated this result transmitted reference range : 10*3/?L. The reference range was not used to interpret this result as normal/abnormal . GRAN MAT (NEUT) % 52.5 % (test code = 770-8) IMM GRAN % (test code 0.60 % = 4541569185) LYMPH % (test code = 25.6 % 736-9) MONO % (test code = 18.0 % 5905-5) EOS % (test code = 1.0 % 713-8) BASO % (test code = 2.3 % 706-2) GRAN MAT x10^3(ANC) 3.27 10*3/uL 1.99-6.95 (test code = 6535859858) IMM GRAN x10^3 (test 0.04 10*3/uL 0.00-0.06 code = 5905291313) LYMPH x10^3 (test code 1.59 10*3/uL 1.09-3.23 = 731-0) MONO x10^3 (test code 1.12 10*3/uL 0.36-1.02 H = 742-7) EOS x10^3 (test code = 0.06 10*3/uL 0.06-0.53 711-2) BASO x10^3 (test code 0.14 10*3/uL 0.01-0.09 H = 704-7) Lab Interpretation Abnormal (test code = 81722-5) [facility] CenterXR ANKLE RIGHT COMPLETE 3 VIEWS *[id number] 22:56:41[facility] : 1965 Sex: MLocation H 31Ex am:Right tib-fib, two viewsRight ankle, three viewsHistory: Leg pain. Dog biteComparison: None availableFindings:Marked bimalleolar soft tissue swelling at ankle.No evidence of acute fracture or subluxation. Ankle mortise alignment is maintained. Chronic spurring/chronic hypertrophic changes seen across the interosseous ligament distally.The tibia and fibula are intact. No evidence of soft tissue gasor foreign body.Early vascular calcifications are seen throughout the leg.Impression:1. No evidence of soft tissue gas or foreign body.2. Marked bimalleolar soft tissue swelling. Small ankle joint effusion.3. No acute osseous findings.Electronically signed by: Kate Stover MD 06/08/2022 10:56 PM SUPPORT MANAGER W orkstation: [phone] LEG RIGHT LOWER/TIB-FIB AP&LAT *OW*2022-06-08 22:56:41[facility] : 1965 Sex: MLocation H 31Ex am:Right tib-fib, two viewsRight ankle, three viewsHistory: Leg pain. Dog biteComparison: None availableFindings:Marked bimalleolar soft tissue swelling at ankle.No evidence of acute fracture or subluxation. Ankle mortise alignment is maintained. Chronic spurring/chronic hypertrophic changes seen across the interosseous ligament distally.The tibia and fibula are intact. No evidence of soft tissue gasor foreign body.Early vascular calcifications are seen throughout the leg.Impression:1. No evidence of soft tissue gas or foreign body.2. Marked bimalleolar soft tissue swelling. Small ankle joint effusion.3. No acute osseous findings.Electronically signed by: Kate Stover MD 06/08/2022 10:56 PM SUPPORT MANAGER W orkstation: [phone] (INCLUDES AUTOMATED DIFFERENTIAL) *2022-06-08 22:51:00 Test Item Value Reference Range Interpretation Comments WBC (test code = WBC) 7.3 10\\S\\3/uL 4.5-11.0 RBC (test code = RBC) 2.77 10\\S\\6/uL 4.20-5.60 L HGB (test code = HBG) 7.2 g/dL 14.0-18.0 LL HCT (test code = HCT) 24.2 % 35.0-46.0 LL MCV (test code = MCV) 87.2 fL 80.0-94.0 MCH (test code = MCH) 26.0 pg 27.0-31.0 L MCHC (test code = MCHC) 29.8 g/dL 32.0-36.0 L RDW (test code = RDW) 15.4 % 11.5-14.5 H PLT (test code = PLT) 283 10\\S\\3/uL 130-400 MPV (test code = OMPV) 8.8 fL 6.2-10.2 NEUTROP # (test code = NE#) 3.8 10\\S\\3/uL 2.0-8.0 LYMPH # (test code = LY#) 2.1 10\\S\\3/uL 1.2-4.0 MID # (test code = GMID#) 1.3 10\\S\\3/uL 0.0-1.1 H GRAN % (test code = GRA%) 52.5 % 35.0-73.0 LYMPH % (test code = GLY%) 29.4 % 20.0-55.0 MID % (test code = GMID%) 18.1 % 0.0-10.0 H RAD, CHEST, 1 VIEW, NON [id number] 13:32:00Reason for exam:- >pneumoniaShould this be performed at the bedside?->Yes [facility] : 1965 Sex: MFINAL REPORT Exam: RAD, CHEST, 1 VIEW, NON DEPTDate: 12/28/2021 1:23 PM Indication:pneumoniaComparison: None FINDINGS: Lines/Tubes/Devices: Overlying EKG leads. Lungs/pleura:Lungs are well inflated. Mildly prominent central vasculature. Retrocardiac airspace opacity. No pleural effusion. No pneumothorax. Heart/Mediastinum:The cardiomediastinal silhouette is normal in size and contour. Bones/Soft Tissues: No acute osseous abnormality. Upper abdomen: Unremarkable. IMPRESSION:Mildly prominent central vasculature may represent component of congestion. Retrocardiac airspace opacity, likely at electasis. Consider infectious process in the appropriate clinical setting. Signed: Stephen Messer MDReport Verified Date/Time: 12/28/2021 13:32:10 Reading Location: [facility] Radiology Reading Room (MANUAL DIFFERENTIAL)2021-12-28 05:33:48 Test Item Value Reference Range Interpretation Comments NEUTROPHILS - REL (DIFF) (BEAKER) 59 % (test code = 1359) LYMPHOCYTES - REL (DIFF) (BEAKER) 12 % (test code = 1360) MONOCYTES - REL (DIFF) (BEAKER) 20 % (test code = 1361) EOSINOPHILS - REL (DIFF) (BEAKER) 6 % (test code = 1362) BASOPHILS - REL (DIFF) (BEAKER) 3 % (test code = 1363) NEUTROPHILS - ABS (DIFF) (BEAKER) 4.13 K/ L 1.80-8.00 (test code = 1365) LYMPHOCYTES - ABS (DIFF) (BEAKER) 0.84 K/ L 1.48-4.50 L (test code = 1366) MONOCYTES - ABS (DIFF) (BEAKER) 1.40 K/ L 0.00-1.30 H (test code = 1367) EOSINOPHILS - ABS (DIFF) (BEAKER) 0.42 K/ L 0.00-0.50 (test code = 1368) BASOPHILS - ABS (DIFF) (BEAKER) 0.21 K/ L 0.00-0.20 H (test code = 1369) TOTAL COUNTED (BEAKER) (test code = 100 1351) WBC MORPHOLOGY (BEAKER) (test code Normal = 487) LARGE PLT(BEAKER) (test code = Present 2156) ANISOCYTOSIS (BEAKER) (test code = 1+ few 961) MICROCYTES (BEAKER) (test code = 1+ few 965) CBC W/PLT COUNT & AUTO [id number] 05:33:47 Test Item Value Reference Range Interpretation Comments WHITE BLOOD CELL COUNT (BEAKER) 7.0 K/ L 4.0-10.0 (test code = 775) RED BLOOD CELL COUNT (BEAKER) 3.55 M/ L 4.20-5.80 L (test code = 761) HEMOGLOBIN (BEAKER) (test code = 10.0 GM/DL 13.0-16.8 L 410) HEMATOCRIT (BEAKER) (test code = 31.2 % 36.0-50.0 L 411) MEAN CORPUSCULAR VOLUME (BEAKER) 87.9 fL 82.0-99.0 (test code = 753) MEAN CORPUSCULAR HEMOGLOBIN 28.2 pg 27.0-33.0 (BEAKER) (test code = 751) MEAN CORPUSCULAR HEMOGLOBIN CONC 32.1 GM/DL 32.0-36.0 (BEAKER) (test code = 752) RED CELL DISTRIBUTION WIDTH 19.2 % 12.0-15.0 H (BEAKER) (test code = 412) PLATELET COUNT (BEAKER) (test 185 K/CU MM 150-430 code = 756) MEAN PLATELET VOLUME (BEAKER) 11.0 fL 6.0-11.5 (test code = 754) NUCLEATED RED BLOOD CELLS 0 /100 WBC 0-0 (BEAKER) (test code = 413) NEUTROPHILS RELATIVE PERCENT 57 % (BEAKER) (test code = 429) LYMPHOCYTES RELATIVE PERCENT 18 % (BEAKER) (test code = 430) MONOCYTES RELATIVE PERCENT 21 % (BEAKER) (test code = 431) EOSINOPHILS RELATIVE PERCENT 2 % (BEAKER) (test code = 432) BASOPHILS RELATIVE PERCENT 2 % (BEAKER) (test code = 437) NEUTROPHILS ABSOLUTE COUNT 3.96 K/ L 1.80-8.00 (BEAKER) (test code = 670) LYMPHOCYTES ABSOLUTE COUNT 1.24 K/ L 1.48-4.50 L (BEAKER) (test code = 414) MONOCYTES ABSOLUTE COUNT (BEAKER) 1.44 K/ L 0.00-1.30 H (test code = 415) EOSINOPHILS ABSOLUTE COUNT 0.16 K/ L 0.00-0.50 (BEAKER) (test code = 416) BASOPHILS ABSOLUTE COUNT (BEAKER) 0.13 K/ L 0.00-0.20 (test code = 417) IMMATURE GRANULOCYTES-RELATIVE 0 % 0-0 PERCENT (BEAKER) (test code = 2801) COMPREHENSIVE METABOLIC [id number] 05:32:30 Test Item Value Reference Range Interpretation Comments TOTAL PROTEIN 8.0 gm/dL 6.0-8.5 (BEAKER) (test code = 770) ALBUMIN (BEAKER) 2.5 g/dL 3.5-5.0 L (test code = 1145) ALKALINE PHOSPHATASE 96 U/L 30-115 (BEAKER) (test code = 346) BILIRUBIN TOTAL 1.7 mg/dL 0.1-1.2 H (BEAKER) (test code = 377) SODIUM (BEAKER) (test 134 meq/L 135-148 L code = 381) POTASSIUM (BEAKER) 4.1 meq/L 3.6-5.5 (test code = 379) CHLORIDE (BEAKER) 104 meq/L 98-106 (test code = 382) CO2 (BEAKER) (test 22 meq/L 20-29 code = 355) BLOOD UREA NITROGEN 5 mg/dL 10-26 L (BEAKER) (test code = 354) CREATININE (BEAKER) 0.84 mg/dL 0.50-1.20 (test code = 358) GLUCOSE RANDOM 105 mg/dL 70-110 (BEAKER) (test code = 652) CALCIUM (BEAKER) 8.4 mg/dL 8.5-10.5 L (test code = 697) AST (SGOT) (BEAKER) 64 U/L 5-40 H (test code = 353) ALT (SGPT) (BEAKER) 26 U/L 5-50 (test code = 347) EGFR (BEAKER) (test 94 mL/min/1.73 ESTIMA BALJINDER GFR IS code = 1092) sq m NOT ACCURATE CREATININE CLEARANCE IN PREDICTING GLOMERULAR FILTRATION RATE . ESTIMATED GFR I S NOT APPLICABLE FOR DIALYSIS PATIEN TS. Principal Biostatistician ID - [id number] ID - [id number] ID - [id number] ID - [id number] ID - RMIHJQRTC076Dgqfglhg ID - BCPWBAQKQ460Ufkfaqvq ID - [id number] ID - EDAJORQLK268Qfnaqurg ID - YCUKMIFHQ456Ajgyxtqu ID - UMVTFXGOL792Yjkiafob ID - CVQBVMRXU248Xycypxxi ID - SGSJTGOZG684Pdtqojbg ID - PAMITSOWX269Ymsgisvb ID - SHACLKQRK955Zlkriopg ID - [id number] ID -[id number] 05:30:12 Test Item Value Reference Range Interpretation Comments MAGNESIUM (BEAKER) (test code = 1.2 mg/dL 1.5-3.0 L 627) Principal Biostatistician ID - [id number] ID - [id number] ID - [id number] ID - [id number] METABOLIC [id number] 05:44:01 Test Item Value Reference Range Interpretation Comments SODIUM (BEAKER) 135 meq/L 135-148 (test code = 381) POTASSIUM (BEAKER) 5.2 meq/L 3.6-5.5 Specimen moderately (test code = 379) hemolyzed CHLORIDE (BEAKER) 107 meq/L 98-106 H (test code = 382) CO2 (BEAKER) (test 18 meq/L 20-29 L code = 355) BLOOD UREA NITROGEN 5 mg/dL 10-26 L (BEAKER) (test code = 354) CREATININE (BEAKER) 0.63 mg/dL 0.50-1.20 Specimen moderately (test code = 358) hemolyzed GLUCOSE RANDOM 67 mg/dL 70-110 L (BEAKER) (test code = 652) CALCIUM (BEAKER) 8.6 mg/dL 8.5-10.5 (test code = 697) EGFR (BEAKER) (test 131 mL/min/1.73 ESTIM ATED GFR IS code = 1092) sq m NOT ACCURATE CREATININE CLEARANCE IN PREDICTING GLOMERULAR FILTRATION RATE . ESTIMATED GFR I S NOT APPLICABLE FOR DIALYSIS PATIEN TS. Principal Biostatistician ID - [id number] ID - [id number] ID - [id number] ID - WYPR76Auolqxhh ID - XMCP59Owtgouig ID - HVXW65Meaowcar ID - HUIB30Hdxvnglm ID - RNMN34Cxxoilmb ID - ARIZ19Uswnqvko ID - GEWF96Eschwnbk ID - DQOX15Ltasylug ID - UGKR19Xniyclvq ID - [id number] (HEMOGRAM ONLY)2021-12-27 05:26:40 Test Item Value Reference Range Interpretation Comments WHITE BLOOD CELL COUNT (BEAKER) 6.6 K/ L 4.0-10.0 (test code = 775) RED BLOOD CELL COUNT (BEAKER) 3.50 M/ L 4.20-5.80 L (test code = 761) HEMOGLOBIN (BEAKER) (test code = 10.0 GM/DL 13.0-16.8 L 410) HEMATOCRIT (BEAKER) (test code = 32.1 % 36.0-50.0 L 411) MEAN CORPUSCULAR VOLUME (BEAKER) 91.7 fL 82.0-99.0 (test code = 753) MEAN CORPUSCULAR HEMOGLOBIN 28.6 pg 27.0-33.0 (BEAKER) (test code = 751) MEAN CORPUSCULAR HEMOGLOBIN CONC 31.2 GM/DL 32.0-36.0 L (BEAKER) (test code = 752) RED CELL DISTRIBUTION WIDTH 19.4 % 12.0-15.0 H (BEAKER) (test code = 412) PLATELET COUNT (BEAKER) (test 150 K/CU MM 150-430 code = 756) MEAN PLATELET VOLUME (BEAKER) 11.5 fL 6.0-11.5 (test code = 754) NUCLEATED RED BLOOD CELLS 0 /100 WBC 0-0 (BEAKER) (test code = 413) U/S, ABDOMINAL, [id number] 03:53:00Abdomen limited area? Add comment if clarification is needed.->LiverReason for exam:->Liver cirrhosis [facility] : 1965 Sex: MFINAL REPORT U/S, ABDOMINAL, LIMITED CLINICAL HISTORY: Liver cirrhosis Comparison: NoneTechnique: Real-time transabdominal ultrasound of the right upper quadrant abdomen was performed. Liver: 14.7 cm, heterogeneous echotexture without focal lesion. Mildly nodular liver surface. Gallbladder: The liver contains low-level echoes compatible with sludge without shadowing stone. No gallbladder wall thickening. No pericholecystic fluid. No sonographic Phan's sign. Biliary tree: No intrahepatic ductal dilatation. CBD: 0.4 cm. Pancreas: The visualized portions are unremarkable. Right kidney:No acute findings. No ascites is present in the abdomen. The visualized portions of the abdominal aor ta, IVC and hepatic veins are unremarkable. Impression: Gallbladder sludge without sonographic evidence of acute cholecystitis or cholelithiasis. Mildly nodular liver surface. Signed: Lobito Mancilla MDReport Verified Date/Time: 12/27/2021 03:53:38 BASIC METABOLIC [id number] 05:41:36 Test Item Value Reference Range Interpretation Comments SODIUM (BEAKER) 136 meq/L 135-148 (test code = 381) POTASSIUM (BEAKER) 3.8 meq/L 3.6-5.5 (test code = 379) CHLORIDE (BEAKER) 107 meq/L 98-106 H (test code = 382) CO2 (BEAKER) (test 21 meq/L 20-29 code = 355) BLOOD UREA NITROGEN 5 mg/dL 10-26 L (BEAKER) (test code = 354) CREATININE (BEAKER) 0.82 mg/dL 0.50-1.20 (test code = 358) GLUCOSE RANDOM 101 mg/dL 70-110 (BEAKER) (test code = 652) CALCIUM (BEAKER) 8.1 mg/dL 8.5-10.5 L (test code = 697) EGFR (BEAKER) (test 97 mL/min/1.73 ESTIMA BALJINDER GFR IS code = 1092) sq m NOT ACCURATE CREATININE CLEARANCE IN PREDICTING GLOMERULAR FILTRATION RATE . ESTIMATED GFR I S NOT APPLICABLE FOR DIALYSIS PATIEN TS. Principal Biostatistician ID - [id number] ID - [id number] ID - [id number] ID - [id number] ID - [id number] ID - [id number] ID - [id number] ID - [id number] ID - [id number] ID - [id number] 05:36:42 Test Item Value Reference Range Interpretation Comments MAGNESIUM (BEAKER) (test code = 1.3 mg/dL 1.5-3.0 L 627) Principal Biostatistician ID - [id number] ID - [id number] ID - [id number] ID - [id number] (HEMOGRAM ONLY)2021-12-26 05:31:48 Test Item Value Reference Range Interpretation Comments WHITE BLOOD CELL COUNT (BEAKER) 5.8 K/ L 4.0-10.0 (test code = 775) RED BLOOD CELL COUNT (BEAKER) 3.34 M/ L 4.20-5.80 L (test code = 761) HEMOGLOBIN (BEAKER) (test code = 9.5 GM/DL 13.0-16.8 L 410) HEMATOCRIT (BEAKER) (test code = 29.7 % 36.0-50.0 L 411) MEAN CORPUSCULAR VOLUME (BEAKER) 88.9 fL 82.0-99.0 (test code = 753) MEAN CORPUSCULAR HEMOGLOBIN 28.4 pg 27.0-33.0 (BEAKER) (test code = 751) MEAN CORPUSCULAR HEMOGLOBIN CONC 32.0 GM/DL 32.0-36.0 (BEAKER) (test code = 752) RED CELL DISTRIBUTION WIDTH 18.7 % 12.0-15.0 H (BEAKER) (test code = 412) PLATELET COUNT (BEAKER) (test 148 K/CU MM 150-430 L code = 756) MEAN PLATELET VOLUME (BEAKER) 11.1 fL 6.0-11.5 (test code = 754) NUCLEATED RED BLOOD CELLS 0 /100 WBC 0-0 (BEAKER) (test code = 413) BASIC METABOLIC [id number] 11:36:16 Test Item Value Reference Range Interpretation Comments SODIUM (BEAKER) 133 meq/L 135-148 L (test code = 381) POTASSIUM (BEAKER) 3.9 meq/L 3.6-5.5 (test code = 379) CHLORIDE (BEAKER) 107 meq/L 98-106 H (test code = 382) CO2 (BEAKER) (test 19 meq/L 20-29 L code = 355) BLOOD UREA NITROGEN 6 mg/dL 10-26 L (BEAKER) (test code = 354) CREATININE (BEAKER) 0.78 mg/dL 0.50-1.20 (test code = 358) GLUCOSE RANDOM 109 mg/dL 70-110 (BEAKER) (test code = 652) CALCIUM (BEAKER) 8.0 mg/dL 8.5-10.5 L (test code = 697) EGFR (BEAKER) (test 103 mL/min/1.73 ESTIM ATED GFR IS code = 1092) sq m NOT ACCURATE CREATININE CLEARANCE IN PREDICTING GLOMERULAR FILTRATION RATE . ESTIMATED GFR I S NOT APPLICABLE FOR DIALYSIS PATIEN TS. Principal Biostatistician ID - LITOOperator ID - LITOOperator ID - LITOOperator ID - LITOOperator ID - LITOOperator ID - LITOOperator ID - LITOOperator ID - LITOOperator ID - LITOOperator ID - LITOOperator ID - LITOOperator ID - LITOOperator ID - LITOCBC (HEMOGRAM ONLY)2021-12-25 11:05:31 Test Item Value Reference Range Interpretation Comments WHITE BLOOD CELL COUNT (BEAKER) 6.8 K/ L 4.0-10.0 (test code = 775) RED BLOOD CELL COUNT (BEAKER) 3.18 M/ L 4.20-5.80 L (test code = 761) HEMOGLOBIN (BEAKER) (test code = 9.2 GM/DL 13.0-16.8 L 410) HEMATOCRIT (BEAKER) (test code = 27.8 % 36.0-50.0 L 411) MEAN CORPUSCULAR VOLUME (BEAKER) 87.4 fL 82.0-99.0 (test code = 753) MEAN CORPUSCULAR HEMOGLOBIN 28.9 pg 27.0-33.0 (BEAKER) (test code = 751) MEAN CORPUSCULAR HEMOGLOBIN CONC 33.1 GM/DL 32.0-36.0 (BEAKER) (test code = 752) RED CELL DISTRIBUTION WIDTH 18.6 % 12.0-15.0 H (BEAKER) (test code = 412) PLATELET COUNT (BEAKER) (test 109 K/CU MM 150-430 L code = 756) MEAN PLATELET VOLUME (BEAKER) 10.8 fL 6.0-11.5 (test code = 754) NUCLEATED RED BLOOD CELLS 0 /100 WBC 0-0 (BEAKER) (test code = 413) BASIC METABOLIC [id number] 05:49:14 Test Item Value Reference Range Interpretation Comments SODIUM (BEAKER) 131 meq/L 135-148 L (test code = 381) POTASSIUM (BEAKER) 3.3 meq/L 3.6-5.5 L (test code = 379) CHLORIDE (BEAKER) 106 meq/L 98-106 (test code = 382) CO2 (BEAKER) (test 20 meq/L 20-29 code = 355) BLOOD UREA NITROGEN 4 mg/dL 10-26 L (BEAKER) (test code = 354) CREATININE (BEAKER) 0.78 mg/dL 0.50-1.20 (test code = 358) GLUCOSE RANDOM 112 mg/dL 70-110 H (BEAKER) (test code = 652) CALCIUM (BEAKER) 7.5 mg/dL 8.5-10.5 L (test code = 697) EGFR (BEAKER) (test 103 mL/min/1.73 ESTIM ATED GFR IS code = 1092) sq m NOT ACCURATE CREATININE CLEARANCE IN PREDICTING GLOMERULAR FILTRATION RATE . ESTIMATED GFR I S NOT APPLICABLE FOR DIALYSIS PATIEN TS. Principal Biostatistician ID - [id number] ID - [id number] ID - [id number] ID - [id number] ID - dmiedyokx528Jqanwbae ID - wxtlcxesl258Mumrwknw ID - [id number] ID - entwboxxu988Otenhgvy ID - [id number] ID - vcryykzlc491Rmzzytlq ID - ehhislxxn114Xbhngifo ID - twgfnswad089Twrbusyq ID - [id number] METABOLIC [id number] 05:59:25 Test Item Value Reference Range Interpretation Comments SODIUM (BEAKER) 135 meq/L 135-148 (test code = 381) POTASSIUM (BEAKER) 3.2 meq/L 3.6-5.5 L (test code = 379) CHLORIDE (BEAKER) 108 meq/L 98-106 H (test code = 382) CO2 (BEAKER) (test 19 meq/L 20-29 L code = 355) BLOOD UREA NITROGEN 5 mg/dL 10-26 L (BEAKER) (test code = 354) CREATININE (BEAKER) 0.78 mg/dL 0.50-1.20 (test code = 358) GLUCOSE RANDOM 86 mg/dL 70-110 (BEAKER) (test code = 652) CALCIUM (BEAKER) 7.5 mg/dL 8.5-10.5 L (test code = 697) EGFR (BEAKER) (test 103 mL/min/1.73 ESTIM ATED GFR IS code = 1092) sq m NOT ACCURATE CREATININE CLEARANCE IN PREDICTING GLOMERULAR FILTRATION RATE . ESTIMATED GFR I S NOT APPLICABLE FOR DIALYSIS PATIEN TS. Principal Biostatistician ID - [id number] ID - [id number] ID - [id number] ID - IEMI43Gghihgaa ID - YQMJ16Rxgurtfc ID - MUIF43Ztxcthgi ID - BBQZ50Hbzfjnsu ID - FIEO76Fcaqhdpv ID - XDYA94Ytmgmoes ID - [id number] 05:52:55 Test Item Value Reference Range Interpretation Comments MAGNESIUM (BEAKER) (test code = 1.3 mg/dL 1.5-3.0 L 627) Principal Biostatistician ID - [id number] ID - [id number] ID - [id number] ID - [id number] BASIC METABOLIC [id number] 06:46:33 Test Item Value Reference Range Interpretation Comments SODIUM (BEAKER) 134 meq/L 135-148 L (test code = 381) POTASSIUM (BEAKER) 3.1 meq/L 3.6-5.5 L (test code = 379) CHLORIDE (BEAKER) 106 meq/L 98-106 (test code = 382) CO2 (BEAKER) (test 21 meq/L 20-29 code = 355) BLOOD UREA NITROGEN 4 mg/dL 10-26 L (BEAKER) (test code = 354) CREATININE (BEAKER) 0.76 mg/dL 0.50-1.20 (test code = 358) GLUCOSE RANDOM 122 mg/dL 70-110 H (BEAKER) (test code = 652) CALCIUM (BEAKER) 7.4 mg/dL 8.5-10.5 L (test code = 697) EGFR (BEAKER) (test 106 mL/min/1.73 ESTIM ATED GFR IS code = 1092) sq m NOT ACCURATE CREATININE CLEARANCE IN PREDICTING GLOMERULAR FILTRATION RATE . ESTIMATED GFR I S NOT APPLICABLE FOR DIALYSIS PATIEN TS. Principal Biostatistician ID - LITOOperator ID - LITOOperator ID - LITOOperator ID - LITOOperator ID - LITOOperator ID - LITOOperator ID - LITOOperator ID - LITOOperator ID - LITOOperator ID - [id number] 06:45:09 Test Item Value Reference Range Interpretation Comments MAGNESIUM (BEAKER) (test code = 1.7 mg/dL 1.5-3.0 627) Principal Biostatistician ID - LITOOperator ID - LITOOperator ID - LITOOperator ID - LITOCBC (HEMOGRAM ONLY)2021-12-22 06:26:25 Test Item Value Reference Range Interpretation Comments WHITE BLOOD CELL COUNT (BEAKER) 7.6 K/ L 4.0-10.0 (test code = 775) RED BLOOD CELL COUNT (BEAKER) 3.42 M/ L 4.20-5.80 L (test code = 761) HEMOGLOBIN (BEAKER) (test code = 9.7 GM/DL 13.0-16.8 L 410) HEMATOCRIT (BEAKER) (test code = 29.3 % 36.0-50.0 L 411) MEAN CORPUSCULAR VOLUME (BEAKER) 85.7 fL 82.0-99.0 (test code = 753) MEAN CORPUSCULAR HEMOGLOBIN 28.4 pg 27.0-33.0 (BEAKER) (test code = 751) MEAN CORPUSCULAR HEMOGLOBIN CONC 33.1 GM/DL 32.0-36.0 (BEAKER) (test code = 752) RED CELL DISTRIBUTION WIDTH 17.2 % 12.0-15.0 H (BEAKER) (test code = 412) PLATELET COUNT (BEAKER) (test code 82 K/CU MM 150-430 L = 756) MEAN PLATELET VOLUME (BEAKER) 12.3 fL 6.0-11.5 H (test code = 754) NUCLEATED RED BLOOD CELLS (BEAKER) 0 /100 WBC 0-0 (test code = 413) BASIC METABOLIC [id number] 06:42:24 Test Item Value Reference Range Interpretation Comments SODIUM (BEAKER) 132 meq/L 135-148 L (test code = 381) POTASSIUM (BEAKER) 3.6 meq/L 3.6-5.5 (test code = 379) CHLORIDE (BEAKER) 103 meq/L 98-106 (test code = 382) CO2 (BEAKER) (test 22 meq/L 20-29 code = 355) BLOOD UREA NITROGEN 5 mg/dL 10-26 L (BEAKER) (test code = 354) CREATININE (BEAKER) 0.90 mg/dL 0.50-1.20 (test code = 358) GLUCOSE RANDOM 119 mg/dL 70-110 H (BEAKER) (test code = 652) CALCIUM (BEAKER) 7.1 mg/dL 8.5-10.5 L (test code = 697) EGFR (BEAKER) (test 87 mL/min/1.73 ESTIMA BALJINDER GFR IS code = 1092) sq m NOT ACCURATE CREATININE CLEARANCE IN PREDICTING GLOMERULAR FILTRATION RATE . ESTIMATED GFR I S NOT APPLICABLE FOR DIALYSIS PATIEN TS. Principal Biostatistician ID - [id number] ID - [id number] ID - [id number] ID - HRTK15Gplltjam ID - IWBB49Vpkasmvv ID - [id number] ID - VRTV27Nmzogynf ID - ECAP29Mfpyzaga ID - FAIZ89Eyxvhfdb ID - [id number] 06:39:52 Test Item Value Reference Range Interpretation Comments MAGNESIUM (BEAKER) (test code = 1.1 mg/dL 1.5-3.0 L 627) Principal Biostatistician ID - [id number] ID - [id number] ID - [id number] ID - [id number] CBC (HEMOGRAM ONLY)2021-12-21 06:26:23 Test Item Value Reference Range Interpretation Comments WHITE BLOOD CELL COUNT (BEAKER) 8.5 K/ L 4.0-10.0 (test code = 775) RED BLOOD CELL COUNT (BEAKER) 3.22 M/ L 4.20-5.80 L (test code = 761) HEMOGLOBIN (BEAKER) (test code = 9.2 GM/DL 13.0-16.8 L 410) HEMATOCRIT (BEAKER) (test code = 27.9 % 36.0-50.0 L 411) MEAN CORPUSCULAR VOLUME (BEAKER) 86.6 fL 82.0-99.0 (test code = 753) MEAN CORPUSCULAR HEMOGLOBIN 28.6 pg 27.0-33.0 (BEAKER) (test code = 751) MEAN CORPUSCULAR HEMOGLOBIN CONC 33.0 GM/DL 32.0-36.0 (BEAKER) (test code = 752) RED CELL DISTRIBUTION WIDTH 16.5 % 12.0-15.0 H (BEAKER) (test code = 412) PLATELET COUNT (BEAKER) (test code 82 K/CU MM 150-430 L = 756) MEAN PLATELET VOLUME (BEAKER) 12.1 fL 6.0-11.5 H (test code = 754) NUCLEATED RED BLOOD CELLS (BEAKER) 0 /100 WBC 0-0 (test code = 413) COMPREHENSIVE METABOLIC [id number] 07:20:00 Test Item Value Reference Range Interpretation Comments TOTAL PROTEIN 8.3 gm/dL 6.0-8.5 (BEAKER) (test code = 770) ALBUMIN (BEAKER) 2.6 g/dL 3.5-5.0 L (test code = 1145) ALKALINE PHOSPHATASE 62 U/L 30-115 (BEAKER) (test code = 346) BILIRUBIN TOTAL 2.3 mg/dL 0.1-1.2 H (BEAKER) (test code = 377) SODIUM (BEAKER) (test 135 meq/L 135-148 code = 381) POTASSIUM (BEAKER) 3.5 meq/L 3.6-5.5 L (test code = 379) CHLORIDE (BEAKER) 103 meq/L 98-106 (test code = 382) CO2 (BEAKER) (test 22 meq/L 20-29 code = 355) BLOOD UREA NITROGEN 6 mg/dL 10-26 L (BEAKER) (test code = 354) CREATININE (BEAKER) 0.89 mg/dL 0.50-1.20 (test code = 358) GLUCOSE RANDOM 97 mg/dL 70-110 (BEAKER) (test code = 652) CALCIUM (BEAKER) 7.4 mg/dL 8.5-10.5 L (test code = 697) AST (SGOT) (BEAKER) 57 U/L 5-40 H (test code = 353) ALT (SGPT) (BEAKER) 16 U/L 5-50 (test code = 347) EGFR (BEAKER) (test 88 mL/min/1.73 ESTIMA BALJINDER GFR IS code = 1092) sq m NOT ACCURATE CREATININE CLEARANCE IN PREDICTING GLOMERULAR FILTRATION RATE . ESTIMATED GFR I S NOT APPLICABLE FOR DIALYSIS PATIEN TS. Principal Biostatistician ID - LITOOperator ID - LITOOperator ID - LITOOperator ID - LITOOperator ID - LITOOperator ID - LITOOperator ID - LITOOperator ID - LITOOperator ID - LITOOperator ID - LITOOperator ID - LITOOperator ID - LITOOperator ID - LITOOperator ID - LITOOperator ID - LITOOperator ID - LITOOperator ID - L ITOOperator ID - LITOOperator ID - LITOCBC W/PLT COUNT & AUTO DIFFERENTIAL 2021-12-20 07:09:17 Test Item Value Reference Range Interpretation Comments WHITE BLOOD CELL COUNT (BEAKER) 8.3 K/ L 4.0-10.0 (test code = 775) RED BLOOD CELL COUNT (BEAKER) 3.48 M/ L 4.20-5.80 L (test code = 761) HEMOGLOBIN (BEAKER) (test code = 9.8 GM/DL 13.0-16.8 L 410) HEMATOCRIT (BEAKER) (test code = 29.8 % 36.0-50.0 L 411) MEAN CORPUSCULAR VOLUME (BEAKER) 85.6 fL 82.0-99.0 (test code = 753) MEAN CORPUSCULAR HEMOGLOBIN 28.2 pg 27.0-33.0 (BEAKER) (test code = 751) MEAN CORPUSCULAR HEMOGLOBIN CONC 32.9 GM/DL 32.0-36.0 (BEAKER) (test code = 752) RED CELL DISTRIBUTION WIDTH 16.0 % 12.0-15.0 H (BEAKER) (test code = 412) PLATELET COUNT (BEAKER) (test code 83 K/CU MM 150-430 L = 756) MEAN PLATELET VOLUME (BEAKER) 12.1 fL 6.0-11.5 H (test code = 754) NUCLEATED RED BLOOD CELLS (BEAKER) 0 /100 WBC 0-0 (test code = 413) NEUTROPHILS RELATIVE PERCENT 63 % (BEAKER) (test code = 429) LYMPHOCYTES RELATIVE PERCENT 18 % (BEAKER) (test code = 430) MONOCYTES RELATIVE PERCENT 15 % (BEAKER) (test code = 431) EOSINOPHILS RELATIVE PERCENT 2 % (BEAKER) (test code = 432) BASOPHILS RELATIVE PERCENT 2 % (BEAKER) (test code = 437) NEUTROPHILS ABSOLUTE COUNT 5.27 K/ L 1.80-8.00 (BEAKER) (test code = 670) LYMPHOCYTES ABSOLUTE COUNT 1.50 K/ L 1.48-4.50 (BEAKER) (test code = 414) MONOCYTES ABSOLUTE COUNT (BEAKER) 1.22 K/ L 0.00-1.30 (test code = 415) EOSINOPHILS ABSOLUTE COUNT 0.17 K/ L 0.00-0.50 (BEAKER) (test code = 416) BASOPHILS ABSOLUTE COUNT (BEAKER) 0.16 K/ L 0.00-0.20 (test code = 417) IMMATURE GRANULOCYTES-RELATIVE 0 % 0-0 PERCENT (BEAKER) (test code = 2801) Prepare Leuko-Red [id number] 23:54:00 Test Item Value Reference Range Interpretation Comments CROSSMATCH (test code = 2264) COMPATIBLE Unit ABO (test code = O Pos [id number]) UNIT NUMBER (test code = [id number] 934-0) Status (test code = 1623247) TX_TIMEINCHART Blood Bank Product (test code RED BLOOD CELLS = 2263) PRODUCT CODE (test code = [id number] 933-2) [facility] [id number] 23:54:00 Test Item Value Reference Range Interpretation Comments CROSSMATCH (test code = 2264) COMPATIBLE Unit ABO (test code = O Pos 6923033) UNIT NUMBER (test code = [id number] 934-0) Status (test code = 2331359) TX_TIMEINCHART Blood Bank Product (test code RED BLOOD CELLS = 2263) PRODUCT CODE (test code = [id number] 933-2) [facility] [id number] 23:54:00 Test Item Value Reference Range Interpretation Comments CROSSMATCH (test code = 2264) COMPATIBLE Unit ABO (test code = O Pos 0015845) UNIT NUMBER (test code = [id number] 934-0) Status (test code = 9331880) TX_TIMEINCHART Blood Bank Product (test code RED BLOOD CELLS = 2263) PRODUCT CODE (test code = [id number] 933-2) [facility] [id number] 23:54:00 Test Item Value Reference Range Interpretation Comments CROSSMATCH (test code = 2264) COMPATIBLE Unit ABO (test code = O Pos 9900552) UNIT NUMBER (test code = [id number] 934-0) Status (test code = 1252630) TX_TIMEINCHART Blood Bank Product (test code RED BLOOD CELLS = 2263) PRODUCT CODE (test code = [id number] 933-2) [facility] [id number] 23:54:00 Test Item Value Reference Range Interpretation Comments CROSSMATCH (test code = 2264) COMPATIBLE Unit ABO (test code = O Pos 8515290) UNIT NUMBER (test code = [id number] 934-0) Status (test code = 2322548) TX_TIMEINCHART Blood Bank Product (test code RED BLOOD CELLS = 2263) PRODUCT CODE (test code = [id number] 933-2) [facility] [id number] 23:54:00 Test Item Value Reference Range Interpretation Comments CROSSMATCH (test code = 2264) COMPATIBLE Unit ABO (test code = O Pos 2262045) UNIT NUMBER (test code = [id number] 934-0) Status (test code = 0807405) TX_TIMEINCHART Blood Bank Product (test code RED BLOOD CELLS = 2263) PRODUCT CODE (test code = [id number] 933-2) [facility] [id number] 23:54:00 Test Item Value Reference Range Interpretation Comments CROSSMATCH (test code = 2264) COMPATIBLE Unit ABO (test code = O Pos 4599641) UNIT NUMBER (test code = [id number] 934-0) Status (test code = 6451921) [facility] Product (test code RED BLOOD CELLS = 2263) PRODUCT CODE (test code = [id number] 933-2) [facility] [id number] 23:54:00 Test Item Value Reference Range Interpretation Comments CROSSMATCH (test code = 2264) COMPATIBLE Unit ABO (test code = O Pos 6680761) UNIT NUMBER (test code = [id number] 934-0) Status (test code = 2391540) [facility] Blood [facility] Product (test code RED BLOOD CELLS = 2263) PRODUCT CODE (test code = R9559R26 933-2) [facility] [id number] 06:55:53 Test Item Value Reference Range Interpretation Comments TOTAL PROTEIN 7.9 gm/dL 6.0-8.5 (BEAKER) (test code = 770) ALBUMIN (BEAKER) 2.5 g/dL 3.5-5.0 L (test code = 1145) ALKALINE PHOSPHATASE 75 U/L 30-115 (BEAKER) (test code = 346) BILIRUBIN TOTAL 2.5 mg/dL 0.1-1.2 H (BEAKER) (test code = 377) SODIUM (BEAKER) (test 133 meq/L 135-148 L code = 381) POTASSIUM (BEAKER) 3.4 meq/L 3.6-5.5 L (test code = 379) CHLORIDE (BEAKER) 100 meq/L 98-106 (test code = 382) CO2 (BEAKER) (test 24 meq/L 20-29 code = 355) BLOOD UREA NITROGEN 5 mg/dL 10-26 L (BEAKER) (test code = 354) CREATININE (BEAKER) 0.85 mg/dL 0.50-1.20 (test code = 358) GLUCOSE RANDOM 119 mg/dL 70-110 H (BEAKER) (test code = 652) CALCIUM (BEAKER) 7.4 mg/dL 8.5-10.5 L (test code = 697) AST (SGOT) (BEAKER) 69 U/L 5-40 H (test code = 353) ALT (SGPT) (BEAKER) 18 U/L 5-50 (test code = 347) EGFR (BEAKER) (test 93 mL/min/1.73 ESTIMA BALJINDER GFR IS code = 1092) sq m NOT ACCURATE CREATININE CLEARANCE IN PREDICTING GLOMERULAR FILTRATION RATE . ESTIMATED GFR I S NOT APPLICABLE FOR DIALYSIS PATIEN TS. Principal Biostatistician ID - [id number] ID - [id number] ID - [id number] ID - TLXBZZBLI007Cyqzsofk ID - VPMZVLBIY905Fvqlgjos ID - WKZDYSJIE473Zfwygkan ID - NMNPZRCNU897Zkjrmrzm ID - YYFHHRBOD161Crmdxapg ID - LXNAHVTVH381Iljxqbap ID - VIDYIZAVX483Jfoulfwr ID - EATVBYNJK695Erljflrd ID - TEYMRVJTQ956Dxizexuo ID - WQFHDNQPW512Xrxeiclq ID - INQAJEKHK293Jqddjjvo ID - HJZOCPDYA200Fylognjp ID -DKWJCMZRU524Gezmmvkv ID - UUIJEQWNJ222Bmcmggvw ID - IIOKZJNAU532Nyaowbhe ID - YFNUIFNHN121Ebvstdkz slightly ictericCBC W/PLT COUNT & AUTO [id number] 06:34:13 Test Item Value Reference Range Interpretation Comments WHITE BLOOD CELL COUNT (BEAKER) 7.4 K/ L 4.0-10.0 (test code = 775) RED BLOOD CELL COUNT (BEAKER) 3.53 M/ L 4.20-5.80 L (test code = 761) HEMOGLOBIN (BEAKER) (test code = 9.8 GM/DL 13.0-16.8 L 410) HEMATOCRIT (BEAKER) (test code = 29.1 % 36.0-50.0 L 411) MEAN CORPUSCULAR VOLUME (BEAKER) 82.4 fL 82.0-99.0 (test code = 753) MEAN CORPUSCULAR HEMOGLOBIN 27.8 pg 27.0-33.0 (BEAKER) (test code = 751) MEAN CORPUSCULAR HEMOGLOBIN CONC 33.7 GM/DL 32.0-36.0 (BEAKER) (test code = 752) RED CELL DISTRIBUTION WIDTH 15.8 % 12.0-15.0 H (BEAKER) (test code = 412) PLATELET COUNT (BEAKER) (test code 85 K/CU MM 150-430 L = 756) MEAN PLATELET VOLUME (BEAKER) 11.4 fL 6.0-11.5 (test code = 754) NUCLEATED RED BLOOD CELLS (BEAKER) 0 /100 WBC 0-0 (test code = 413) NEUTROPHILS RELATIVE PERCENT 56 % (BEAKER) (test code = 429) LYMPHOCYTES RELATIVE PERCENT 22 % (BEAKER) (test code = 430) MONOCYTES RELATIVE PERCENT 18 % (BEAKER) (test code = 431) EOSINOPHILS RELATIVE PERCENT 2 % (BEAKER) (test code = 432) BASOPHILS RELATIVE PERCENT 2 % (BEAKER) (test code = 437) NEUTROPHILS ABSOLUTE COUNT 4.07 K/ L 1.80-8.00 (BEAKER) (test code = 670) LYMPHOCYTES ABSOLUTE COUNT 1.59 K/ L 1.48-4.50 (BEAKER) (test code = 414) MONOCYTES ABSOLUTE COUNT (BEAKER) 1.31 K/ L 0.00-1.30 H (test code = 415) EOSINOPHILS ABSOLUTE COUNT 0.17 K/ L 0.00-0.50 (BEAKER) (test code = 416) BASOPHILS ABSOLUTE COUNT (BEAKER) 0.18 K/ L 0.00-0.20 (test code = 417) IMMATURE GRANULOCYTES-RELATIVE 0 % 0-0 PERCENT (BEAKER) (test code = 2801) COMPREHENSIVE METABOLIC [id number] 07:01:24 Test Item Value Reference Range Interpretation Comments TOTAL PROTEIN 7.1 gm/dL 6.0-8.5 (BEAKER) (test code = 770) ALBUMIN (BEAKER) 2.4 g/dL 3.5-5.0 L (test code = 1145) ALKALINE PHOSPHATASE 86 U/L 30-115 (BEAKER) (test code = 346) BILIRUBIN TOTAL 1.6 mg/dL 0.1-1.2 H (BEAKER) (test code = 377) SODIUM (BEAKER) (test 140 meq/L 135-148 code = 381) POTASSIUM (BEAKER) 4.3 meq/L 3.6-5.5 (test code = 379) CHLORIDE (BEAKER) 107 meq/L 98-106 H (test code = 382) CO2 (BEAKER) (test 25 meq/L 20-29 code = 355) BLOOD UREA NITROGEN 5 mg/dL 10-26 L (BEAKER) (test code = 354) CREATININE (BEAKER) 1.00 mg/dL 0.50-1.20 (test code = 358) GLUCOSE RANDOM 103 mg/dL 70-110 (BEAKER) (test code = 652) CALCIUM (BEAKER) 7.5 mg/dL 8.5-10.5 L (test code = 697) AST (SGOT) (BEAKER) 67 U/L 5-40 H (test code = 353) ALT (SGPT) (BEAKER) 20 U/L 5-50 (test code = 347) EGFR (BEAKER) (test 77 mL/min/1.73 ESTIMA BALJINDER GFR IS code = 1092) sq m NOT ACCURATE CREATININE CLEARANCE IN PREDICTING GLOMERULAR FILTRATION RATE . ESTIMATED GFR I S NOT APPLICABLE FOR DIALYSIS PATIEN TS. Principal Biostatistician ID - LITOOperator ID - LITOOperator ID - LITOOperator ID - LITOOperator ID - LITOOperator ID - LITOOperator ID - LITOOperator ID - LITOOperator ID - LITOOperator ID - LITOHEPATIC FUNCTION [id number] 07:01:15 Test Item Value Reference Range Interpretation Comments TOTAL PROTEIN (BEAKER) (test code = 7.1 gm/dL 6.0-8.5 770) ALBUMIN (BEAKER) (test code = 1145) 2.4 g/dL 3.5-5.0 L BILIRUBIN TOTAL (BEAKER) (test code 1.6 mg/dL 0.1-1.2 H = 377) BILIRUBIN DIRECT (BEAKER) (test 1.1 mg/dL 0.0-0.4 H code = 706) ALKALINE PHOSPHATASE (BEAKER) (test 86 U/L 30-115 code = 346) AST (SGOT) (BEAKER) (test code = 67 U/L 5-40 H 353) ALT (SGPT) (BEAKER) (test code = 20 U/L 5-50 347) Principal Biostatistician ID - LITOOperator ID - LITOOperator ID - LITOOperator ID - LITOOperator ID - LITOOperator ID - LITOOperator ID - LITOLIPID [id number] 07:01:14 Test Item Value Reference Range Interpretation Comments TRIGLYCERIDES (BEAKER) (test code = 69 mg/dL 540) CHOLESTEROL (BEAKER) (test code = 74 mg/dL 631) HDL CHOLESTEROL (BEAKER) (test code 16 mg/dL = 976) LDL CHOLESTEROL CALCULATED (BEAKER) 44 mg/dL (test code = 633) Triglyceride Reference Range: Low Risk <150 Borderline 150-199 High Risk 200- 499 Very High Risk >=500Cholesterol Reference Range: Low Risk <200 Borderline 200-239 High Risk >240HDL Cholesterol Reference Range: Low Risk >=60 High Risk <40LDL Cholesterol Reference Range: Optimal <100 Near Optimal 100-129 Borderline 130-159 High 160-189 Very High >=190 Principal Biostatistician ID - LITOOperator ID - LITOOperator ID - LITOOperator ID - LITOOperator ID - LITOOperator ID - LITOPROTHROMBIN [id number] 06:59:56 Test Item Value Reference Range Interpretation Comments PROTIME (BEAKER) 16.7 seconds 9.3-12.0 H Final Infor mation (test code = 759) (Auto Outp ut) INR (BEAKER) (test 1.57 See_Comment Final Inf ormation code = 370) (Auto Output) [Automated mess age] The system [employer] generated this result transmitted ref erence range: <=5.90. The reference range was not used to int erpret this result as normal/abnormal . RECOMMENDED COUMADIN/WARFARIN INR THERAPY RANGESSTANDARD DOSE: 2.0 - 3.0 Includes: PROPHYLAXIS for venous thrombosis, systemic embolization; TREATMENT for venous thrombosis and/or pulmonary embolus.HIGH RISK: Target INR is 2.5-3.5 for patients with mechanical heart valves.CBC W/PLT COUNT & AUTO [id number] 06:56:13 Test Item Value Reference Range Interpretation Comments WHITE BLOOD CELL COUNT (BEAKER) 5.8 K/ L 4.0-10.0 (test code = 775) RED BLOOD CELL COUNT (BEAKER) 2.71 M/ L 4.20-5.80 L (test code = 761) HEMOGLOBIN (BEAKER) (test code = 7.3 GM/DL 13.0-16.8 L 410) HEMATOCRIT (BEAKER) (test code = 22.6 % 36.0-50.0 L 411) MEAN CORPUSCULAR VOLUME (BEAKER) 83.4 fL 82.0-99.0 (test code = 753) MEAN CORPUSCULAR HEMOGLOBIN 26.9 pg 27.0-33.0 L (BEAKER) (test code = 751) MEAN CORPUSCULAR HEMOGLOBIN CONC 32.3 GM/DL 32.0-36.0 (BEAKER) (test code = 752) RED CELL DISTRIBUTION WIDTH 15.4 % 12.0-15.0 H (BEAKER) (test code = 412) PLATELET COUNT (BEAKER) (test code 86 K/CU MM 150-430 L = 756) MEAN PLATELET VOLUME (BEAKER) 10.6 fL 6.0-11.5 (test code = 754) NUCLEATED RED BLOOD CELLS (BEAKER) 0 /100 WBC 0-0 (test code = 413) NEUTROPHILS RELATIVE PERCENT 50 % (BEAKER) (test code = 429) LYMPHOCYTES RELATIVE PERCENT 29 % (BEAKER) (test code = 430) MONOCYTES RELATIVE PERCENT 15 % (BEAKER) (test code = 431) EOSINOPHILS RELATIVE PERCENT 2 % (BEAKER) (test code = 432) BASOPHILS RELATIVE PERCENT 3 % (BEAKER) (test code = 437) NEUTROPHILS ABSOLUTE COUNT 2.89 K/ L 1.80-8.00 (BEAKER) (test code = 670) LYMPHOCYTES ABSOLUTE COUNT 1.71 K/ L 1.48-4.50 (BEAKER) (test code = 414) MONOCYTES ABSOLUTE COUNT (BEAKER) 0.89 K/ L 0.00-1.30 (test code = 415) EOSINOPHILS ABSOLUTE COUNT 0.13 K/ L 0.00-0.50 (BEAKER) (test code = 416) BASOPHILS ABSOLUTE COUNT (BEAKER) 0.18 K/ L 0.00-0.20 (test code = 417) IMMATURE GRANULOCYTES-RELATIVE 0 % 0-0 PERCENT (BEAKER) (test code = 2801) [id number] 06:47:47 Test Item Value Reference Range Interpretation Comments AMMONIA (ALCIDES) (test code = 348) 66 mol/L 17-80 Principal Biostatistician ID - LITOOperator ID - LITOOperator ID - LITOOperator ID - LITOXR FEMUR RIGHT AP & LAT *OW*2019-03-27 10:20:15Exam: X-ray right femur 2 viewsHISTORY: Pain.Location: [id number]:No fracture or dislocation is noted. No osseous lesions seen.IMPRESSION:1. Unremarkable exam. Notes Date/Time Note Provider Source 2021-12-27 14:14:33-00:00 [facility] PROGRESS NOTE DOMINGO JIGNA FACILITY: [facility] Billing #: [id number] Room: [address] [place] [address] MR #: [id number] : 1965 PHYSICIAN: Kay Alberto MD ADMISSION DATE: 12/18/2021 DATE: 12/27/2021 SUBJECTIVE: The patient is seen and examined at bedside, remains comfortable, in no apparent distress. Th e patient indicates to me that he would like to go home. REVIEW OF SYSTEMS: He denies any chest pain. No chest discomfort. N o nausea. No vomiting. PHYSICAL EXAMINATION: VITAL SIGNS: Upon evaluation, temperature 96.5, pulse of 82, respiratory rate 18, blood pressure 134/74, O2 s aturation 96% on room air. GENERAL: In no apparent distress. Appears comfor table. NEUROLOGIC: Alert, oriented x3. NECK: Supple. No carotid bruits. CARDIOVASCULAR: Regular rate and rhythm. S1, S2. LUNGS: Fair entry bilaterally. No wheezing or rh onchi. ABDOMEN: Soft, nontender, nondistended. Positive bowel sounds. EXTREMITIES: No clubbing, no cyanosis, no edema. Positive peripheral pulses. SKIN: Intact. LABORATORY DATA: Reviewed. ASSESSMENT: 1. Acute alcohol intoxication with alcohol withd toribio. 2. Toxic metabolic encephalopathy secondary to a lcohol intoxication. 3. Anemia and thrombocytopenia secondary to EtOH abuse. 4. Hypokalemia and hypomagnesium, this has been repleted. PLAN: We will go ahead and repeat all of his lab s tomorrow including chest x-ray. Otherwise, his labs from today appear to be stable. I have ordered a Case Management e valuation for home health. My plan is to discharge this patien t home tomorrow. SSA/MODL /[id number] 2021-12-18 12:33:57-00:00 CONNIE BRYANT [facility] CONSULTATION JIGNA LEI FACILITY: [facility] Billing #: [id number] Room: [address] [place] [address] MR #: [id number] : 1965 DATE OF ADMISSION: 12/18/2021 DATE OF CONSULTATION: REQUESTING PHYSICIAN: MATTRESS FILLING MACHINE TENDER: Connie Bryant MD Gastrology Consultation Note REASON FOR CONSULTATION: Abdominal pain and hist ory of gastric varices. HISTORY OF PRESENT ILLNESS: Mr. Lei is a 56- year-old male transferred from another facility with abdominal pain and history of gastric varices. I do not have much of the record, but apparently the patient had gastric varices and also had some nausea, vo miting. He has had a history of alcohol consumption and also ma rijuana consumption. He drinks a six-pack of beer a day. He also has had apparently a history of premature dementia. The patient came in with a low hemoglobin of 6.6. He has bee n placed on octreotide. There is no evidence of any ongoing bleeding. The patient was intoxicated with an alcohol level of 372. PAST MEDICAL HISTORY: As per chart. SOCIAL/FAMILY HISTORY: Essentially noncontributo ry. REVIEW OF SYSTEMS: A detailed review otherwise was unremarkable. PHYSICAL EXAMINATION: GENERAL: Revealed a male, who appeared comfortab le. He did not appear in distress. VITAL SIGNS: Stable with a temperature of 98.4, pulse 86, respirations 18, and blood pressure was 133/76. HEENT: No icterus was noted. External ocular mov ements were intact. No pharyngeal erythema was noted. COR: Unremarkable. CHEST: Unremarkable. ABDOMEN: Soft. No tenderness noted. No masses we re felt. LABORATORY DATA: Remarkable for hematocrit of 22 .6 with a platelet count of 86,000. The INR was 1.57. IMPRESSION: 1. History of alcohol consumption. 2. Anemia. 3. Thrombocytopenia. PLAN: The patient has had a significant history of alcohol consumption and is at risk for withdrawal. My re commendation would be to go ahead and advance the diet and figueroa dejesus discharge as no endoscopic workup is recommended at this t [facility], and followup can be arranged as an outpatient. He figueroa oleg will need another unit of blood prior to discharge. Thank you for the courtesy of your referral. ADAL /[id number]
[2022-12-14 07:53] LABS: Absolute Lymphocytes (CBC) 1.2 K/uL (0.7-4.9); Hematocrit 19.9 % (39.6-49.0); Lymphocytes % 23.8 % (15.3-44.8); MCV 89.7 fL (80-100); MPV 8.7 fL (7.6-11.3); RBC Red Blood Cell Count 2.22 M/uL (4.33-5.43)
[2022-12-14 07:59] LABS: Protime INR 1.32
--- NOTE | 2022-12-14 08:10 | RAD REPORT ---
EXAM DESCRIPTION: RADChest Single View12/14/2022 7:51 am CLINICAL HISTORY: CHEST PAIN COMPARISON: Chest Single View dated 05/20/2022 TECHNIQUE: Portable AP view of the chest. FINDINGS: The lungs are clear. No pneumothorax or effusion. The cardiomediastinal contours are unrem arkable. IMPRESSION: No acute cardiopulmonary process.
[2022-12-14 08:15] LABS: Albumin 2.6 g/dL (3.4-5.0); Bilirubin Direct 0.4 mg/dL (0-0.2); Bilirubin Indirect, Calculated 0.3 mg/dL (0.2-0.8); Bilirubin Total 0.7 mg/dL (0.2-1.0); Potassium 3.2 mEq/L (3.5-5.1); Protein, Total 7.6 g/dL (6.4-8.2); Troponin High Sensitivity 10.5 pg/mL (<58.9)
--- NOTE | 2022-12-14 08:19 | ER ---
Nurse's Notes [facility] Name: Fan Lei Jr Age: 57 yrs Sex: Male : 1965 Arrival Date: 12/14/2022 Time: 07:28 Bed 3 Private MD: Diagnosis: Anemia, unspecified;Chest pain, unspecified Presentation: 12/14 07:30 Chief complaint: EMS states: SEEN YESTERDAY FOR SAME S/S, LEFT AMA INSTEAD OF bp TRANSFERRING. CALLED EMS THIS MORNING FOR SAME S/S. Coronavirus screen: At this time, the client does not indicate any symptoms associated with coronavirus-19. Ebola Screen: No symptoms or risks identified at this time. Initial Sepsis Screen: Does the patient meet any 2 criteria? No. Patient's initial sepsis screen is negative. Does the patient have a suspected source of infection? No. Patient's initial sepsis screen is negative. Risk Assessment: Do you want to hurt yourself or someone else? Patient reports no desire to harm self or others. Onset of symptoms is unknown. Care prior to arrival: Medication(s) given: ASA, 81 mg, x 4, Nitroglycerin, 0.4 mg SL x 2, IV initiated. 18 GA, in the right antecubital area. 07:30 Method Of Arrival: EMS: [facility] bp 07:30 Acuity: KITA 3 bp Triage Assessment: 07:31 General: Appears in no apparent distress. comfortable, Behavior is calm, cooperative, kc6 appropriate for age, Smells of alcohol. Pain: Complains of pain in chest Pain does not radiate. Pain currently is 5 out of 10 on a pain scale. Pain began 1 day ago. Is continuous. EENT: No signs and/or symptoms were reported regarding the EENT system. Neuro: Guzman Agitation-Sedation Scale (RASS): 0 - Alert and Calm Level of Consciousness is awake, alert, obeys commands, Oriented to person, place, time, situation, Appropriate for age. Cardiovascular: Heart tones S1 S2 present Capillary refill < 3 seconds. Respiratory: Airway is patent Trachea midline Respiratory effort is even, unlabored, Respiratory pattern is regular, symmetrical. GI: No signs and/or symptoms were reported involving the gastrointestinal system. : No signs and/or symptoms were reported regarding the genitourinary system. Derm: No signs and/or symptoms reported regarding the dermatologic system. Skin is intact, Skin is pink, warm \T\ dry. Musculoskeletal: No signs and/or symptoms reported regarding the musculoskeletal system. Circulation, motion, and sensation intact. Capillary refill < 3 seconds, Range of motion: intact in all extremities. Historical: - Allergies: 07:31 No Known Allergies; kc6 - PMHx: 07:31 Alcohol dependence; liver problems; [facility] - PSHx: 07:31 None; [facility] - Immunization history:: Client reports receiving the 2nd dose of the Covid vaccine, Flu vaccine is not up to date. - Social history:: Smoking status: Patient denies any tobacco usage or history of. Screenin:[address] [facility] ED Fall Risk Assessment (Adult) History of falling in the last 3 months, bp including since admission No falls in past 3 months (0 pts). Abuse screen: Denies threats or abuse. Denies injuries from another. Nutritional screening: No deficits noted. Tuberculosis screening: No symptoms or risk factors identified. Assessment: 07:31 General: SEE TRIAGE NOTE. bp 08:30 Reassessment: Patient appears in no apparent distress at this time. No changes from [facility] previously documented assessment. Patient and/or family updated on plan of care and expected duration. Pain level reassessed. Patient is alert, oriented x 3, equal unlabored respirations, skin warm/dry/pink. 10:20 Reassessment: REPORT TO DONALD RAE FOR RM [facility]. bp 11:00 Reassessment: 1ST UNIT PRBC STARTED. bp 11:15 Reassessment: EMS AT B/S FOR TRANSPORT. bp Vital Signs: 07:33 BP 125 / 77; Pulse 92; Resp 18 S; Temp 98.2(O); Pulse Ox 100% on R/A; Weight 66.22 kg [facility] (R); Height 5 ft. 4 in. (R); Pain 5/10; 09:06 BP 116 / 67; Pulse 75; Resp 16 S; Pulse Ox 96% on R/A; kc6 10:29 BP 109 / 63; Pulse 87; Resp 17; Pulse Ox 95% ; bp 07:33 Body Mass Index 25.06 (66.22 kg, 162.56 cm) [facility] 07:33 Pain Scale: Adult [facility] ED Course: 07:29 Patient arrived in ED. ll1 07:30 Lizandro Summers, RN is Primary Nurse. bp 07:30 Jens Murguia MD is Attending Physician. bs3 07:30 Arm band placed on Patient placed in an exam room, on a stretcher. ll1 07:31 Triage completed. bp 07:31 Patient has correct armband on for positive identification. Bed in low position. Call bp light in reach. Side rails up X2. Client placed on continuous cardiac and pulse oximetry monitoring. NIBP monitoring applied. 07:31 Maintain EMS IV. Dressing intact. Good blood return noted. Site clean \T\ dry. Gauge \T\ bp site: 18 GA R AC. Patient maintains SpO2 saturation greater than 95% on room air. 07:32 Maintain EMS IV. Dressing intact. Good blood return noted. Site clean \T\ dry. Gauge \T\ thomas 6 site: 18G RAC. Patient maintains SpO2 saturation greater than 95% on room air. 07:53 XRAY Chest (1 view) In Process Unspecified. EDMS 09:[address] [facility]. (pt may need to go to [facility] per Jeramy). bd 09:46 pt accepted in transfer to [facility] by dr Alberto, admin approval given by Jeramy Dunbar, pt going to room A506. 11:18 No provider procedures requiring assistance completed. Patient transferred, IV remains bp in place. Administered Medications: No medications were administered Medication: 07:31 VIS not applicable for this client. bp Outcome: 08:17 ER care complete, transfer ordered by . bs3 11:18 Transferred by ground EMS to [facility], Transfer form completed. bp 11:18 Condition: stable 11:18 Instructed on the need for transfer. 11:25 Patient left the ED. ll1 Signatures: Dispatcher [employer] EDMS Rosa Hood bd Lizandro Summers, RN RN Jameson Posey RN RN ll1 Angie White RN RN kc6 Jens Murguia MD MD bs3
--- NOTE | 2022-12-14 08:19 | EDPHYS ---
Physician Documentation [facility] Name: Fan Lei Jr Age: 57 yrs Sex: Male : 1965 Arrival Date: 12/14/2022 Time: 07:28 Bed 3 Private MD: ED Physician Jens Murguia HPI: 12/14 07:38 This 57 yrs old Male presents to ER via EMS with complaints of Chest Pain. bs3 07:38 57yo hx of etoh abuse/dependence, possible cirrhosis, presents with cp for a long time, bs3 he states months. He states he went to an [facility] hospital but does not recall which, and they found his hgb to be 6, they rec transfer to [place] but he refused and went home and comes in with recurrent cp. He denies cough, fever, chills, abdominal pain, but notes chronic leg pain. . Historical: - Allergies: 07:31 No Known Allergies; kc6 - PMHx: 07:31 Alcohol dependence; liver problems; kc6 - PSHx: 07:31 None; kc6 - Immunization history:: Client reports receiving the 2nd dose of the Covid vaccine, Flu vaccine is not up to date. - Social history:: Smoking status: Patient denies any tobacco usage or history of. ROS: 07:38 Constitutional: Negative for fever, chills bs3 07:38 All other systems are negative. Exam: 07:38 Constitutional: This is a well developed, well nourished patient who is awake, alert, bs3 and in no acute distress. Head/Face: Normocephalic, atraumatic. Eyes: Pupils equal round and reactive to light, extra-ocular motions intact. Lids and lashes normal. ENT: mmm, no posterior phyarngeal erythema Neck: Trachea midline, no thyromegaly, no neck stiffness Chest/axilla: Normal chest wall appearance and motion. Nontender with no deformity. No lesions are appreciated. Cardiovascular: Regular rate and rhythm with a normal S1 and S2. symmetric pulses in upper extremities Respiratory: Lungs have equal breath sounds bilaterally, clear to auscultation, no respiratory distress Abdomen/GI: Soft, non-tender, no rebound or guarding Skin: Warm, dry with normal turgor. Normal color with no rashes, no lesions, and no evidence of cellulitis. MS/ Extremity: Pulses equal, no cyanosis. Neurovascular intact. Full, normal range of motion. Neuro: Awake and alert, GCS 15, oriented to person, place, time, and situation. Cranial nerves II-XII grossly intact. Motor strength 5/5 in all extremities. Sensory grossly intact. Psych: Awake, alert, with orientation to person, place and time. Behavior, mood, and affect are within normal limits. 07:[address] elevation or depression qtc 469 as inter by myself. Vital Signs: 07:33 BP 125 / 77; Pulse 92; Resp 18 S; Temp 98.2(O); Pulse Ox 100% on R/A; Weight 66.22 kg kc6 (R); Height 5 ft. 4 in. (R); Pain 5/10; 09:06 BP 116 / 67; Pulse 75; Resp 16 S; Pulse Ox 96% on R/A; kc6 10:29 BP 109 / 63; Pulse 87; Resp 17; Pulse Ox 95% ; bp 07:33 Body Mass Index 25.06 (66.22 kg, 162.56 cm) [facility] 07:33 Pain Scale: Adult kc6 MDM: 07:30 Patient medically screened. bs3 07:38 HEART Score: History: Slightly Suspicious (0), ECG: Normal (0), Age: > 45 and < 65 bs3 years (1), Risk Factors: 1 or 2 risk factors (1), [Hypertension] [Active Smoker]. Data reviewed: vital signs, nurses notes. 08:15 ED course: Patient found to be anemic to less than 7 prior was 8.5 he reports several bs3 months ago having an upper endoscopy and something clipped in his stomach he denies any bright red blood per rectum or any dark tarry stools but is refusing a rectal exam. He reports no bleeding with his prior endoscopy given lack of gastroenterology in our facility will transfer. 09:45 ED course: D/W Dr. Julio C White who accepted pt. bs3 12/14 07:36 Order name: Basic Metabolic Panel; Complete Time: 08:16 bp 12/14 07:36 Order name: CBC with Diff bp 12/14 08:12 Interpretation: Abnormal. bs3 12/14 07:36 Order name: LFT's; Complete Time: 08:16 bp 12/14 07:36 Order name: NT PRO-BNP; Complete Time: 08:16 bp 12/14 07:36 Order name: PT-INR; Complete Time: 08:12 bp 12/14 07:36 Order name: Troponin HS; Complete Time: 08:16 bp 12/14 07:36 Order name: Type And Screen bp 12/14 08:22 Order name: Bb Add On bd 12/14 08:30 Order name: Packed RBC Leukored EDMA 12/14 10:34 Order name: ABO/RH no charge EDMA 12/14 07:36 Order name: XRAY Chest (1 view); Complete Time: 08:12 bp 12/14 07:36 Order name: EKG; Complete Time: 07:36 bp 12/14 07:36 Order name: Cardiac monitoring; Complete Time: 07:36 bp 12/14 07:36 Order name: EKG - Nurse/Tech; Complete Time: 07:36 bp 12/14 07:36 Order name: IV Saline Lock; Complete Time: 07:36 bp 12/14 07:36 Order name: Labs collected and sent; Complete Time: 07:46 bp 12/14 07:36 Order name: O2 Per Protocol; Complete Time: 07:36 bp 12/14 07:36 Order name: O2 Sat Monitoring; Complete Time: 07:36 bp Administered Medications: No medications were administered Disposition: 08:17 Critical Care:. bs3 Disposition Summary: 12/14/22 08:17 Transfer Ordered Transfer Location: [facility] bs3 Reason: Higher level of care bs3 Condition: Stable bs3 Problem: new bs3 Symptoms: have improved bs3 Accepting Physician: st herrera(12/14/22 11:25) ll1 Diagnosis - Anemia, unspecified bs3 - Chest pain, unspecified bs3 Forms: - Medication Reconciliation Form bs3 - SBAR form bs3 Critical care time excluding procedures: 08:17 Critical care time: Bedside Care: 35 minutes. Total time: 35 minutes bs3 Signatures: Dispatcher [employer] EDLizandro Garcia RN RN Jameson Posey RN RN ll1 Angie White RN RN kc6 Jens Murguia MD MD bs3 Corrections: (The following items were deleted from the chart) 11:25 08:[facility] bs3 ll1
[2022-12-14] MEDS ORDERED: NA CHLORIDE 0.9% 250 ML ONE (08:33)
[2022-12-14 11:30] VITALS: TEMP 98.2
[2022-12-14 11:32] VITALS: BP 109/63; O2SAT 95
[2022-12-14 12:52] LABS: White Blood Cell Scan OK (OK)
[2022-12-14 12:53] LABS: Anisocytosis 1+; Blood Morphology Comment NOTED (NOT SEEN); Platelet Estimate DECR; Rouleau SLIGHT
--- NOTE | 2022-12-15 05:35 | EKG ---
Test Date: 2022-12-14 Test Time: 07:31:40 Financial Planning Advisor: WILLY MEASUREMENT RESULTS: Intervals: Rate: 88 LA: 136 QRSD: 86 QT: 388 QTc: 469 [place]: P: 0 LA: 136 QRS: 5 T: 68 INTERPRETIVE STATEMENTS: Normal sinus rhythm Normal ECG Compared to ECG 05/20/2022 18:47:59 No significant changes Electronically Signed On 12-15-22 05:33:35 CDT by Young Douglass
== END 2022-12-14 11:25 | disposition short-term general hospital (02) ==
LOC: ER 07:28
DX: R07.9 Chest pain, unspecified (principal); D64.9 Anemia, unspecified; F10.20 Alcohol dependence, uncomplicated
CPT/HCPCS: 36415; 71045; 80048; 80076; 83880; 84484; 85025; 85610; 86850; 86900; 86901; 86920; 93005; J7050; P9016

== ENCOUNTER 2023-01-15 20:58 | Emergency (ER) | payer SELFPAY ==
--- OUTSIDE RECORDS SUMMARY | 2023-01-15 21:07 | XMS REPORT | Continuity of Care Document ---
:1965 [facility] t Address [address] [place] [address] [address] [place] [address] Care Team Providers Name Role Phone KAY ALBERTO Primary Care Physician Unavailable DR ANASTASIA TERRELL Attending Clinician Unavailable PRESTON ENRIQUEZ Attending Clinician Unavailable KAY ALBERTO Attending Clinician Unavailable Doctor Unassigned, Maloy Attending Clinician Unavailable RUBEN CONN Attending Clinician Unavailable Pardeep Moody MD Attending Clinician Ruben Conn MD Attending Clinician CHRISTIAN Attending Clinician Unavailable Tamara Partida LVN Attending Clinician Maya Nguyen DO Attending Clinician RIVKA PALACIOS Attending Clinician Unavailable Rivka Palacios MD Attending Clinician [phone] Sujit Carolina MD Attending Clinician DR KARRI THAYER Attending Clinician Unavailable Edna Attending Clinician Unavailable Kay Alberto MD Attending Clinician Marcel Menjivar MD Attending Clinician CONN, DR ADY T. Attending Clinician Unavailable DR ANASTASIA TERRELL Admitting Clinician Unavailable KAY ALBERTO Admitting Clinician Unavailable RUBEN CONN Admitting Clinician Unavailable Ruben Conn MD Admitting Clinician CHRISTIAN Admitting Clinician Unavailable SUJIT VAZQUEZ Admitting Clinician Unavailable Sujit Vazquez MD Admitting Clinician DR KARRI THAYER Admitting Clinician Unavailable Edna Admitting Clinician Unavailable DR ADY CONN Admitting Clinician Unavailable Payers Payer Name Policy Type Policy Number Effective Date Expiration Date S swapnil 1000 [id number] 2022 00:00:00 MEDICAID SSI PENDING 2022 2022 PENDING 00:00:00 00:00:00 Problems Condition Condition Condition Status Onset [...] Overview : Univers c anemia c anemia 1-29 Formattin ity of 00:00: g of this [place] note Medical might be Branch different from the original. 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 00:00: Medica l with with 00 Center complicati complicati on on Gastric Gastric Disease Active [facility] Allergies, Adverse Reactions, Alerts Allergy Allergy Status Severity Reaction(s) Onset Inactive Treating Comm ents Source Name Type Date Date Clinician NO KNOWN Drug Active Univers ALLERGIE Class ity of [facility] No Known DA Active [facility] Allergie [facility] NO KNOWN Allergy Active [facility] ALLERGIE [facility] Social History Social Habit Start Date Stop Date Quantity Comments Source History of tobacco Passive smoker Un iversity of use [place] [facility] History SDOH Social Unive rsity of Connections Get [place] [facility] Together Branch History SDOH Social Unive rsity of Connections Baptism [place] [facility] History SDOH Social Unive rsity of Connections [place] [facility] Membership Branch History SDOH Social Unive rsity of Connections [place] [facility] Meetings Branch History SDOH [facility] Medical Ce nter Lived Exposure to 2022-09-27 2022-10-07 Not sure University of SARS-CoV-2 (event) 00:00:00 15:03:00 [place] [facility] Cigarettes smoked 2022-10-07 2022-10-07 Univers ity of current (pack per 00:00:00 00:00:00 [place] [facility] ed[facility] day) - Reported Branch Cigarette 2022-10-07 2022-10-07 University of pack-years 00:00:00 00:00:00 [place] [facility] Alcohol intake 2022-10-07 2022-10-07 6 /d University of 00:00:00 00:00:00 [place] [facility] History SDOH 2022-10-07 2022-10-07 5 University o f Alcohol Frequency 00:00:00 00:00:00 [place] [facility] History SDOH 2022-10-07 2022-10-07 3 University o f Alcohol Std Drinks 00:00:00 00:00:00 [place] [facility] History SDOH 2022-10-07 2022-10-07 5 University o f Alcohol Binge 00:00:00 00:00:00 [place] [facility] History SDOH Social 2022-10-07 2022-10-07 5 Unive rsity of Connections Phone 00:00:00 00:00:00 [place] M edical [facility] History SDOH Social 2022-10-07 2022-10-07 98 Unive rsity of Connections Living 00:00:00 00:00:00 [place] [facility] History SDOH 2022-10-07 2022-10-07 0 University o f Physical Activity 00:00:00 00:00:00 [place] [facility] DPW Branch History SDOH 2022-10-07 2022-10-07 0 University o f Physical Activity 00:00:00 00:00:00 [place] [facility] MPS Branch History SDOH 2022-10-07 2022-10-07 5 University o f Financial 00:00:00 00:00:00 [place] [facility] History SDOH Food 2022-10-07 2022-10-07 1 Univers ity of Worry 00:00:00 00:00:00 [place] [facility] History SDOH Food 2022-10-07 2022-10-07 1 Univers ity of Scarcity 00:00:00 00:00:00 [place] [facility] History SDOH 2022-10-07 2022-10-07 2 University o f Transport Med 00:00:00 00:00:00 [place] [facility] History SDNH 2022-10-07 2022-10-07 2 [place] o f Transport Non-Med 00:00:00 00:00:00 [facility] Branch Tobacco use and 2021-12-18 2021-12-[address] [facility] exposure 00:00:00 00:00:00 tobacco non-user Medical Center History [facility] 2021-12-18 2021-12-[address] [facility] Housing Unable to 00:00:00 00:00:00 Medical Center Pay History [facility] 2021-12-18 2021-12-[address] [facility] Housing Homeless 00:00:00 00:00:00 Medical Center Last Year Sex Ass[birth year] At [birth year] Universit y of 00:00:00 00:00:00 [facility] Smoking Status Start Date Stop Date Source Smokes tobacco daily 2022-10-07 00:00:00 Univers ity of [facility] Occasional tobacco smoker 2022-08-22 00:00:00 Un iversity of [facility] Medications Ordered Filled Start Stop Current Ordering Indication Dosage Frequency Signature Comments Components Source Medication Medication Date Date Medication? Clinician (SIG) Name Name oxazepam 15 Yes [id number] 15mg Take 1 Univers mg capsule 3-22 capsule by ity of 00:00: mouth [place] 00 every 4 Medical (four) Branch hours as needed (Only while awake for DBP equal to or greater than 100, HR equal to or greater than 100.). foLIC acid Yes [id number] 1mg Take 1 Univers 1 mg tablet 3-20 tablet by ity of 00:00: mouth in [place] 00 the Medical morning. Branch pantoprazol Yes [id number] 40mg Take 1 Univers e 40 mg EC 3-20 tablet by ity of tablet 00:00: mouth in [place] 00 the Medical morning Branch and 1 tablet in the evening. propranoloL Yes [id number] 10mg Take 1 Univers 10 mg 3-20 tablet by ity of tablet 00:00: mouth in [place] 00 the Medical morning Branch and 1 tablet in the evening. thiamine 2022-0 Yes [id number] 100mg Take 1 [facility] 100 mg 3-20 tablet by ity of tablet 00:00: mouth in [place] 00 the Medical morning. Branch ferrous 2022- Yes [id number] 325mg Take 1 Uni vers sulfate 3-20 tablet by ity of (IRON) 325 00:00: mouth in [facility] as mg (65 mg 00 the [facility] iron) morning Branch tablet and 1 tablet at noon and 1 tablet in the evening. Take with meals. polyethylen Yes [id number] 17g Take 17 g Univers e glycol 3-20 by mouth ity of 3350 17 00:00: in the [place] gram/dose 00 morning. Medica l powder Branch oxazepam 15 2022- No [id number] 15mg Take 1 Univers mg capsule -10 10- capsule by it y of 00:00: 04:59 mouth [place] 00 :00 every 12 Medical (twelve) Branch hours for 1 day. oxazepam 15 2022- No [id number] 15mg Take 1 Univers mg capsule -10 10- capsule by it y of 00:00: 00:00 mouth [place] 00 :00 every 12 Medical (twelve) Branch hours for 1 day. oxazepam 2022- No 15mg [Order 1 Univ ers (SERAX) -10-10 Start] ity of capsule 15 18:00: 18:14 Name: [place] mg 09 :00 oxazepam Medical (SERAX) Branch capsule 15 mg Signed Summary: 15 mg, Oral, Q8H TAPER, 3 doses, First dose on 10/09/22 at 1315, Last dose on 10/10/22 at 0515, Routine [Order 1 End] [Order [...] Branch (NS) 250 mL Hours, On infusion [place] 10/09/22 at 0845, For 1 dose magnesium 0 2022- No 4g 4 g, IV Univ ers sulfate in 10-09 Piggyback, it y of water 4 12:30: 17:18 at 25 [place] gram/50 mL 00 :00 mL/hr Medical (8 %) IV Administer Branc h Piggyback 4 over 120 g Minutes, ONCE, 1 dose, On 10/09/22 at 0730, Routine melatonin Yes 3mg 3 mg, Univers (MELATIN) 3-19 Oral, QHS, ity of tablet 3 mg 05:45: First dose [place] 00 on [facility] 10/09/22 at Branch 0045, Until Discontinu ed, Routine thiamine 2022-0 Yes [id number] 100mg Take 1 Un juan antonio 100 mg 3-19 tablet by ity of tablet 00:00: mouth in [place] 00 the Medical morning. Branch oxazepam 15 0 Yes [id number] 15mg Take 1 Univers mg capsule 3-19 capsule by ity of 00:00: mouth [place] 00 every 4 Medical (four) Branch hours as needed (Only while awake for DBP equal to or greater than 100, HR equal to or greater than 100.). ferrous 2022-0 Yes [id number] 325mg Take 1 Uni vers sulfate 3-19 tablet by ity of (IRON) 325 00:00: mouth in [facility] as mg (65 mg 00 the Medical iron) morning Branch tablet and 1 tablet at noon and 1 tablet in the evening. Take with meals. polyethylen 0 Yes [id number] 17g Take 17 g Univers e glycol 3-19 by mouth ity of 3350 17 00:00: in the [place] gram/dose 00 morning. Medica l powder Branch oxazepam 15 2022- No [id number] 15mg Take 1 Univers mg capsule 10-09 capsule by it y of 00:00: 04:59 mouth [place] 00 :00 every 8 Medical (eight) Branch hours for 1 day. oxazepam 15 0 2022- No [id number] 15mg Take 1 Univers mg capsule 10-09 capsule by it y of 00:00: 00:00 mouth [place] 00 :00 every 8 Medical (eight) Branch hours for 1 day. phytonadion 2022- No 10mg IV Unive rs e (VITAMIN 10-08 Piggyback, it y of K) 10 mg in 17:15: 17:14 Q24H ABX, [place] NaCl 0.9% 00 :00 3 doses, Medica l (NS) First dose Branch piggyback on [facility] 10/08/22 at 1215, Last dose on Mon10/10/22 at 1215, 50 mL oxazepam Yes 15mg 15 mg, Univers (SERAX) 10-08 Oral, ity of capsule 15 16:00: Q4HPRN, [place] mg 09 Starting Medical on [facility] 10/08/22 at 1100, Until Discontinu ed, Routine, Only while awake for DBP equal to or greater than 100, HR equal to or greater than 100. thiamine Yes 100mg 100 mg, Unive rs (VITAMIN - Oral, ity of B1) tablet 14:00: DAILY, [place] 100 mg 00 First dose Medical on [facility] 10/08/22 at 0900, Until Discontinu ed, Routine foLIC acid Yes 1mg 1 mg, Univer s (FOLATE) -18 Oral, ity of tablet 1 mg 14:00: DAILY, [place] 00 First dose Medical on [facility] 10/08/22 at 0900, Until Discontinu ed, Routine magnesium 2022- No 4g 4 g, IV Univ ers sulfate in 10-08 Piggyback, it y of water 4 14:00: 16:51 at 25 [place] gram/50 mL 00 :00 mL/hr Medical (8 %) IV Administer Branc h Piggyback 4 over 120 g Minutes, ONCE, 1 dose, On [facility] 10/08/22 at 0900, Routine pantoprazol 2023-0 Yes 40mg 40 mg, Univ ers e 3-18 Slow IV ity of (PROTONIX) 13:00: Push, [place] injection 00 Q12H, Medical 40 mg First dose Branch on 10/08/22 at 0800, Until Discontinu ed oxazepam 3-0 Yes 10mg 10 mg, Univers (SERAX) 3-18 Oral, ity of capsule 10 04:35: Q6HPRN, [place] mg 10 Starting Medical on Fri Branch 10/07/22 at 2335, Until Discontinu ed, Routine, Withdrawal signs pantoprazol 3-0 2023- No 40mg 40 mg, Uni vers e 318 03-18 Oral, BID, ity of (PROTONIX) 01:00: 12:22 First dose [place] EC tablet 00 :26 on Fri Medical 40 mg 10/07/22 at Branch 2000, Until Discontinu ed, Routine ondansetron 2022-0 Yes 4mg 4 mg, Slow Univers (ZOFRAN 3-17 IV Push, ity of (PF)) 15:26: Q6HPRN, [place] injection 4 20 Starting Medi heriberto mg on Fri Branch 10/07/22 at 1026, Until Discontinu ed, Routine, Nausea and Vomiting (N/V) acetaminoph 2022-0 Yes 650mg 650 mg, Un juan antonio en 3-17 Oral, ity of (TYLENOL) 15:26: Q6HPRN, [place] tablet 650 19 Starting Medic al mg on Mon Branch 10/07/22 at 1026, Until Discontinu ed, Routine, Pain (scale 1-3) foLIC acid 2022-0 Yes [id number] 1mg Take 1 Univers 1 mg tablet 2-02 tablet by ity of 00:00: mouth in [place] [address] the Medical morning. [place] foLIC acid 2022-0 Yes [id number] 1mg Take 1 Univers 1 mg tablet 2-02 tablet by ity of 00:00: mouth in [place] 00 the Medical morning. [place] foLIC acid 2022-0 Yes [id number] 1mg Take 1 Univers 1 mg tablet 2-02 tablet by ity of 00:00: mouth in [place] 00 the Medical morning. [place] foLIC acid 2022-0 Yes [id number] 1mg Take 1 Univers 1 mg tablet 2-02 tablet by ity of 00:00: mouth in [place] 00 the Medical morning. [place] foLIC acid 0 Yes [id number] 1mg Take 1 Univers 1 mg tablet 08-25 tablet by ity of 00:00: mouth in [place] 00 the Medical morning. [place] foLIC acid 2022-0 2022- No [id number] 1mg Take 1 Univers 1 mg tablet 08-25 tablet by it y of 00:00: 00:00 mouth in [place] 00 :00 the Medical morning. [place] foLIC acid 2022-0 2022- No [id number] 1mg Take 1 Univers 1 mg tablet 08-25 tablet by it y of 00:00: 00:00 mouth in [place] 00 :00 the Medical morning. [place] pantoprazol 0 Yes 40mg 40 mg, Univ ers e 08-24 Oral, BID, ity of (PROTONIX) 14:00: First dose [place] EC tablet 00 mon 40 mg 08/24/22 at [place] 0800, Until Discontinu ed, Routine KCL 2022-0 2022- No 40meq 40 mEq, Univers (KLOR-CON 08-24 Oral, ity of M20) tablet 13:30: 14:14 ONCE, 1 [place] 40 mEq 00 :00 dose, On Mon08/24/22 [place] at 0730, Routine propranoloL 2022-0 Yes 10mg 10 mg, Univ ers (INDERAL) 08-24 Oral, BID, ity of tablet 10 02:00: First dose [place] mg 00 on Mon08/23/22 at Branch 2000, Until Discontinu ed, Routine phytonadion 2022-0 2022- No 5mg 5 mg, Univ ers e (vitamin 08-24 Oral, ity of K1) 00:45: 14:59 DAILY, 3 [place] (MEPHYTON) 00 :00 doses, Medical tablet 5 mg First dose Br anch on Mon08/23/22 at 1845, Last dose on Mon08/25/22 at 0900, Routine pantoprazol 2022-0 Yes [id number] 40mg Take 1 Univers e 40 mg EC 08-24 tablet by ity of tablet 00:00: mouth in [place] the Medical morning Branch and 1 tablet in the evening. propranoloL 2023-0 Yes [id number] 10mg Take 1 Univers 10 mg 2-01 tablet by ity of tablet 00:00: mouth in [place] 00 the Medical morning Branch and 1 tablet in the evening. pantoprazol 2023-0 Yes [id number] 40mg Take 1 Univers e 40 mg EC 2-01 tablet by ity of tablet 00:00: mouth in [place] 00 the Medical morning Branch and 1 tablet in the evening. propranoloL 2023-0 Yes [id number] 10mg Take 1 Univers 10 mg 2-01 tablet by ity of tablet 00:00: mouth in [place] 00 the Medical morning Branch and 1 tablet in the evening. pantoprazol 2023-0 Yes [id number] 40mg Take 1 Univers e 40 mg EC 2-01 tablet by ity of tablet 00:00: mouth in [place] 00 the Medical morning Branch and 1 tablet in the evening. propranoloL 2023-0 Yes [id number] 10mg Take 1 Univers 10 mg 2-01 tablet by ity of tablet 00:00: mouth in [place] 00 the Medical morning Branch and 1 tablet in the evening. pantoprazol 2023-0 Yes [id number] 40mg Take 1 Univers e 40 mg EC 2-01 tablet by ity of tablet 00:00: mouth in [place] 00 the Medical morning Branch and 1 tablet in the evening. propranoloL 2023-0 Yes [id number] 10mg Take 1 Univers 10 mg 2-01 tablet by ity of tablet 00:00: mouth in [place] [address] the Medical morning Branch and 1 tablet in the evening. pantoprazol 2023-0 Yes [id number] 40mg Take 1 Univers e 40 mg EC 2-01 tablet by ity of tablet 00:00: mouth in [place] 00 the Medical morning Branch and 1 tablet in the evening. propranoloL 2023-0 Yes [id number] 10mg Take 1 Univers 10 mg 2-01 tablet by ity of tablet 00:00: mouth in [place] 00 the Medical morning Branch and 1 tablet in the evening. propranoloL 2023-0 2023- No [id number] 10mg Take 1 Univers 10 mg 2-01 02-01 tablet by ity of tablet 00:00: 00:00 mouth in [place] 00 :00 the Medical morning Branch and 1 tablet in the evening. pantoprazol 2023-0 2023- No [id number] 40mg Take 1 Univers e 40 mg EC 2-01 02-01 tablet by ity of tablet 00:00: 00:00 mouth in [place] 00 :00 the Medical morning Branch and 1 tablet in the evening. Do all this for 30 days. pantoprazol 2022- No [id number] 40mg Take 1 Univers e 40 mg EC 08-24 tablet by ity of tablet 00:00: 00:00 mouth in [place] 00 :00 the [facility] morning Branch and 1 tablet in the evening. propranoloL 2022- No [id number] 10mg Take 1 Univers 10 mg 08-24 tablet by ity of tablet 00:00: 00:00 mouth in [place] 00 :00 the [facility] morning Branch and 1 tablet in the [...] [place] 00 First dose Medical on Mon08/22/22 at 0900, Until Discontinu ed, Routine iron [...] 120 g Minutes, ONCE, 1 dose, On Mon08/21/22 at 2245, Routine phytonadion 2022- No 10mg IV Unive rs e (VITAMIN 08-22 Piggyback, it y of K) 10 mg in 04:22: 08:42 ONCE, 1 [place] NaCl 0.9% 00 :00 dose, On Medica l (NS) [place] Branch piggyback 08/21/22 at 2230, 50 mL pantoprazol 2022- No 80mg 80 mg, Uni vers e 08-22 Slow IV ity of (PROTONIX) 03:16: 04:15 Push, [place] injection 00 :00 ONCE, 1 Medical 80 mg dose, On Branch [place] 08/21/22 at 2130 lactulose Yes 30mL 30 mL, Univer s (CEPHULAC) 08-22 Oral, BID, ity of solution 30 02:00: First dose [place] mL 00 on [facility] Medical 08/21/22 at Branch 2000, Until Discontinu ed, Routine acetaminoph Yes 650mg 650 mg, Un juan antonio en 08-22 Oral, ity of (TYLENOL) 01:51: Q6HPRN, [place] tablet 650 03 Starting Medic al mg on [place] Branch 08/21/22 at 1951, Until Discontinu ed, Routine, Pain (scale 1-3) pantoprazol 2022- No 8mg/h 8 mg/hr U nivers e 08-22 (50 ity of (PROTONIX) 01:30: 12:39 mL/hr), IV [place] 80 mg in 00 :06 Infusion, Medica l NaCl CONTINUOUS Branch 0.9%(NS) , Starting 500 mL IV on [place] infusion 08/21/22 at (CNR) 1930 cefTRIAXone 2022-0 2022- No 1000mg 1,000 mg, Univers (ROCEPHIN) 08-22 Intravenou it y of 1,000 mg in 01:30: 16:35 s, Q24H [place] NaCl 0.9% 00 :33 ABX, 7 Medical (NS) 50 mL doses, Branch MINI-BAG First dose on 08/21/22 at 1930, Last dose on 08/27/22 at 1930, Administer over 30 Minutes, [...] to or greater than 100. folic acid 2021- No 1mg QD Take [address] [facility] (FOLVITE) 1 - 07-08 tablet (1 [facility] MG tablet 00:00: 23:59 mg total) Me dical 00 :00 by mouth Center daily for 30 days. folic acid 2021- No 1mg QD Take [address] [facility] (FOLVITE) 1 - 07-08 tablet (1 [facility] kes MG tablet 00:00: 23:59 mg total) Me dical 00 :00 by mouth Center daily for 30 days. folic acid 2021- No 1mg QD Take [address] [facility] (FOLVITE) 1 12-29 07-08 tablet (1 [facility] k[facility] MG tablet 00:00: 23:59 mg total) Me dical 00 :00 by mouth Center daily for 30 days. folic acid 2021- No 1mg QD Take [address] [facility] (FOLVITE) 1 - 07-08 tablet (1 [facility] k[facility] MG tablet 00:00: 23:59 mg total) Me dical 00 :00 by mouth Center daily for 30 days. folic acid 2021- No 1mg QD Take [address] [facility] (FOLVITE) 1 - 07-08 tablet (1 [facility] kes MG tablet 00:00: 23:59 mg total) Me dical 00 :00 by mouth Center daily for 30 days. folic acid 2021-2021- No 1mg QD Take [address] [facility] (FOLVITE) 1 - 07-08 tablet (1 Amanda kes MG tablet 00:00: 23:59 mg total) Me dical 00 :00 by mouth Center daily for 30 days. folic acid 2021- No 1mg QD Take [address] [facility] [...] needed for Anxiety. metoclopram 2022-0 Yes 5mg Q.[id number] Take [address] [facility] naye 6-07 [id number] by mouth 3 Andrew es (REGLAN) 5 [...] needed for Anxiety. metoclopram 2022-0 Yes 5mg Q.[id number] Take [address] [facility] naye 6-07 [id number] by mouth 3 [facility] (REGLAN) 5 [...] needed for Anxiety. metoclopram 2022-0 Yes 5mg Q.[id number] Take [address] [facility] naye 6-07 [id number] by mouth 3 [facility] (REGLAN) 5 [...] needed for Anxiety. metoclopram 2022-0 Yes 5mg Q.[id number] Take [address] [facility] naye 6-07 [id number] by mouth 3 [facility] (REGLAN) 5 [...] needed for Anxiety. metoclopram 2022-0 Yes 5mg Q.[id number] Take [address] [facility] naye 6-07 [id number] by mouth 3 [facility] (REGLAN) 5 [...] needed for Anxiety. metoclopram 2022-0 Yes 5mg Q.[id number] Take [address] [facility] naye 6-07 [id number] by mouth 3 [facility] (REGLAN) 5 [...] needed for Anxiety. metoclopram 2022-0 Yes 5mg Q.[id number] Take [address] [facility] naye - [id number] by mouth 3 [facility] (REGLAN) 5 [...] Center daily as needed for Anxiety. metoclopram 2-0 Yes 5mg Q.[id number] Take [address] [facility] naye 6- [id number] by mouth 3 [facility] es (REGLAN) 5 14:00: 3D (three) Medi heriberto MG tablet 10 times Center daily. chlordiazeP 2021-0 2021- No 10mg Q.[id number] Take [address] [facility] OXIDE 12-28- [id number] by mouth 3 [facility] (LIBRIUM) 11:11: 00:00 3D (three) Medi heriberto 10 MG 26 :00 times Center capsule daily. multivitami 2021-0 2021- No 1{tbl} QD Take [...] 11:11: 00:00 mouth Medical 26 :00 daily. [facility] chlordiazeP 2021-2021- No 10mg Q.[id number] Take [address] [facility] [address] OXIDE 6- 06-07 [id number] by mouth 3 [facility] (LIBRIUM) 11:11: 00:00 3D (three) Medi heriberto 10 MG 26 :00 times Center capsule daily. multivitami 2021-2021- No 1{tbl} QD Take [address] [facility] with - 06-07 tablet by [facility] 11:11: 00:00 mouth Medical tablet 26 :00 daily. [facility] ondansetron 2021-2021- No 4mg Take [address] [facility] [address] (ZOFRAN) 4 - 06-07 by mouth [facility] MG tablet 11:11: 00:00 every 8 Medi heriberto 26 :00 (eight) Center hours as needed for Nausea. thiamine 2021-2021- No 100mg QD Take [address] 100 MG 6- 06-07 mg by [facility] tablet 11:11: 00:00 mouth Medical 26 :00 daily. [facility] chlordiazeP 2021-2021- No 10mg Q.[id number] Take [address] [facility] OXIDE 6-01 26-07 [id number] by mouth 3 [facility] (LIBRIUM) 11:11: 00:00 3D (three) Medi heriebrto 10 MG 26 :00 times Center capsule daily. multivitami 2021-0 2021- No 1{tbl} QD Take [address] n with -01 26-07 tablet by [facility] 11:11: 00:00 mouth Medical tablet 26 :00 daily. [facility] ondansetron 2021-2021- No 4mg Take [address] [address] (ZOFRAN) 4 6- 06-07 by mouth [facility] MG tablet 11:11: 00:00 every 8 Medi heriberto 26 :00 (eight) Center hours as needed for Nausea. thiamine 2021-0 2021- No 100mg QD Take [address] 100 MG 6- 06-07 mg by [facility] tablet 11:11: 00:00 mouth Medical 26 :00 daily. [facility] chlordiazeP 2021-0 2022- No 10mg Q.[id number] Take [address] [facility] OXIDE 6-07 06-07 [id number] by mouth 3 [facility] (LIBRIUM) 11:11: 00:00 3D (three) Medi heriberto 10 MG 26 :00 times Center capsule daily. multivitami 2021-2021- No 1{tbl} QD Take [address] n with 6- 06-07 tablet by [facility] 11:11: 00:00 mouth Medical tablet 26 :00 daily. Center ondansetron 2021-2021- No 4mg Take [address] [facility] [address] (ZOFRAN) 4 6-07 06-07 by mouth Luke [facility] MG tablet 11:11: 00:00 every 8 Medi heriberto 26 :00 (eight) Center hours as needed for Nausea. thiamine 2021-2021- No 100mg QD Take [address] 100 MG 6- 06-07 mg by [facility] tablet 11:11: 00:00 mouth Medical 26 :00 daily. [facility] chlordiazeP 2021-2021- No 10mg Q.[id number] Take [address] [facility] OXIDE 6-07 06-07 [id number] by mouth 3 [facility] (LIBRIUM) 11:11: 00:00 3D (three) Medi heriberto 10 MG 26 :00 times Center capsule daily. multivitami 2021-2021- No 1{tbl} QD Take [address] n with 6- 06-07 tablet by [facility] 11:11: 00:00 mouth Medical tablet 26 :00 daily. [facility] ondansetron 2021-2021- No 4mg Take [address] [address] (ZOFRAN) 4 6-07 06-07 by mouth [facility] MG tablet 11:11: 00:00 every 8 Medi heriberto 26 :00 (eight) Center hours as needed for Nausea. thiamine 2021-0 2021- No 100mg QD Take [address] 100 MG 6-07 06-07 mg by [facility] tablet 11:11: 00:00 mouth Medical 26 :00 daily. Center chlordiazeP 2021-2021- No 10mg Q.[id number] Take [address] OXIDE 6-07 06-07 [id number] by mouth 3 [facility] (LIBRIUM) 11:11: 00:00 3D (three) Medi heriberto 10 MG 26 :00 times Center capsule daily. multivitami 2021-2- No 1{tbl} QD Take [address] n with 6- 06-07 tablet by [facility] 11:11: 00:00 mouth Medical tablet 26 :00 daily. Center ondansetron 2021-0 2- No 4mg Take [address] (ZOFRAN) 4 6- 06-07 by mouth Luke [facility] MG tablet 11:11: 00:00 every 8 Medi heriberto 26 :00 (eight) Center hours as needed for Nausea. thiamine 2021-0 2021- No 100mg QD Take [address] 100 MG 6- 06-07 mg by [facility] tablet 11:11: 00:00 mouth Medical 26 :00 daily. Center chlordiazeP 2021-2021- No 10mg Q.[id number] Take [address] OXIDE 6- 06- [id number] by mouth 3 [facility] (LIBRIUM) 11:11: 00:00 3D (three) Medi heriberto 10 MG 26 :00 times Center capsule daily. multivitami 2021-2021- No 1{tbl} QD Take [address] n with -01 26-07 tablet by [facility] 11:11: 00:00 mouth Medical tablet 26 :00 daily. [facility] ondansetron 2021-2021- No 4mg Take 4 mg [...] daily. Center chlordiazeP 2021-0 2021- No 10mg Q.[id number] Take [address] OXIDE 6- 06-07 [id number] by mouth 3 [facility] (LIBRIUM) 11:11: 00:00 3D (three) Medi heriberto 10 MG 26 :00 times Center capsule daily. multivitami 2021-0 2021- No 1{tbl} QD Take [address] [facility] with 6- 06-07 tablet by [facility] 11:11: 00:00 mouth Medical tablet 26 :00 daily. Center ondansetron 2021- No 4mg Take [address] [facility] (ZOFRAN) 4 12-28- by mouth [facility] MG tablet 11:11: 00:00 every 8 Medi heriberto 26 :00 (eight) Center hours as needed for Nausea. thiamine 2021-2021- No 100mg QD Take [address] [facility] 100 MG 12-28-07 mg by [facility] 11:11: 00:00 mouth [...] 25mg QD Take [address] [facility] (SEROquel) 12-28-07 tablet (25 Amanda kes 25 MG 00:00: [...] [address] [facility] with -01 27-07 tablet [facility] 00:00: 23:59 mouth Medical tablet 00 :00 daily for Center 30 days. thiamine 2021-0 2022- No 100mg QD Take 1 [facility] -01 27- tablet [facility] 00:00: 23:59 (100 mg Medical 00 :00 total) by Center mouth daily for 30 days. QUEtiapine 2021-0 2022- No 25mg QD Take [address] [facility] (SEROquel) 6-01 27-07 tablet (25 Amanda kes 25 MG 00:00: 23:59 mg total) Medica l tablet 00 :00 by mouth Center nightly for 30 days. multivitami 2021-0 2- No 1{tbl} QD Take 1 C HI [...] 1 [facility] -01 27-07 tablet [facility] 00:00: 23:59 (100 mg Medical 00 :00 total) by Center mouth daily for 30 days. QUEtiapine 2021-0 2- No 25mg QD Take [address] [facility] (SEROquel) 6-01 27-07 tablet (25 Amanda kes 25 MG 00:00: 23:59 mg total) Medica l tablet 00 :00 by mouth Center nightly for 30 days. multivitami 2021-0 2- No 1{tbl} QD Take [address] [facility] with -01 27- tablet [facility] 00:00: 23:59 mouth Medical tablet 00 :00 daily for Center 30 days. thiamine 2021-0 2022- No 100mg QD Take 1 [facility] [...] 1 [facility] MG -01 27-07 tablet [facility] 00:00: 23:59 (100 mg Medical 00 :00 total) by Center mouth daily for 30 days. QUEtiapine 2021-0 2- No 25mg QD Take [address] [facility] (SEROquel) -01 27-07 tablet (25 Amanda kes 25 MG 00:00: 23:59 mg total) Medica l tablet 00 :00 by mouth Center nightly for 30 days. ondansetron 2021-0 2022- No 4mg Take [address] [facility] (ZOFRAN) [...] Nausea for up to 10 days. chlordiazeP 2-0 2022- No 10mg QD Take [address] [facility] OXIDE 6-01 26-12 capsule [facility] (LIBRIUM) 00:00: 23:59 (10 mg Medic al 10 MG 00 :00 total) by Center capsule mouth daily for 5 days. Max Daily Amount: 10 mg chlordiazeP 2-0 2022- No 10mg QD Take [address] [facility] OXIDE 6-01 26-12 capsule [facility] (LIBRIUM) 00:00: 23:59 (10 mg Medic al 10 MG 00 :00 total) by Center capsule mouth daily for 5 days. Max Daily Amount: 10 mg chlordiazeP 2-0 2022- No 10mg QD Take [address] [facility] OXIDE 6-01 26-12 capsule [facility] (LIBRIUM) 00:00: 23:59 (10 mg Medic al 10 MG 00 :00 total) by Center capsule mouth daily for 5 days. Max Daily Amount: 10 mg chlordiazeP 2-0 2022- No 10mg QD Take [address] [facility] OXIDE 6-12 capsule [facility] (LIBRIUM) 00:00: 23:59 (10 mg Medic al 10 MG 00 :00 total) by Center capsule mouth daily for 5 days. Max Daily Amount: 10 mg chlordiazeP 2-0 2022- No 10mg QD Take [address] [facility] [address] OXIDE 6-01 26-12 capsule [facility] (LIBRIUM) 00:00: 23:59 (10 mg Medic al 10 MG 00 :00 total) by Center capsule mouth daily for 5 days. Max Daily Amount: 10 mg chlordiazeP 2-0 2022- No 10mg QD Take [address] [facility] OXIDE 6- 06-12 capsule [facility] (LIBRIUM) 00:00: 23:59 (10 mg Medic al 10 MG 00 :00 total) by Center capsule mouth daily for 5 days. Max Daily Amount: 10 mg chlordiazeP 2-0 2022- No 10mg QD Take 1 [facility] [...] Name Observation Time Observation Value Comments Source Height 2023-01-01 19:07:00 162.56 CM Weight 2023-01-01 19:07:00 68 KG HEIGHT 2022-12-14 15:29:00 162.6 cm WEIGHT 2022-12-14 15:29:00 68.04 kg HEIGHT 2022-12-14 13:18:00 162.6 cm HEIGHT 2022-12-14 15:29:00 162.6 cm WEIGHT 2022-12-14 15:29:00 68.04 kg HEIGHT 2022-12-14 13:18:00 162.6 cm Systolic blood 2022-10-09 17:21:00 128 mm[Hg] Univer sity of pressure [facility] Diastolic blood 2022-10-09 17:21:00 89 mm[Hg] Unive rsity of [facility] Heart rate 2022-10-09 17:21:00 107 /min [facility] Body temperature 2022-10-09 17:21:00 36.5 Carley [facility] Res[facility] rate 2022-10-09 17:21:00 18 /min [facility] Oxygen saturation in 2022-10-09 17:21:00 98 /min [facility] Arterial blood by [facility] Pulse oximetry Branch Body height 2022-10-07 20:10:00 162.6 cm [facility] Body weight 2022-10-07 20:10:00 68.04 kg [facility] BMI 2022-10-07 20:10:00 25.75 kg/m2 [facility] Systolic blood 2022-08-24 18:43:00 139 mm[Hg] Univer sity of [facility] Diastolic blood 2022-08-24 18:43:00 79 mm[Hg] Unive rsity of [facility] Heart rate 2022-08-24 18:43:00 63 /min Universi ty [facility] Body temperature 2022-08-24 18:43:00 36.33 Carley Univ ersity [facility] Respiratory rate 2022-08-24 18:43:00 19 /min [facility] O[facility] saturation in 2022-08-24 18:43:00 99 /min University of Arterial blood by [facility] Pulse oximetry Branch Body height 2022-08-23 14:57:00 162.6 cm Universi ty [facility] Body weight 2022-08-23 14:57:00 69.4 kg Universi ty [facility] BMI 2022-08-23 14:57:00 26.26 kg/m2 [facility] Height 2022-06-08 22:19:00 162.56 CM Weight 2022-06-08 22:19:00 66.22 KG WEIGHT 2021-12-18 11:00:00 64.819 kg HEIGHT 2021-12-18 11:00:00 162.6 cm WEIGHT 2021-12-18 11:00:00 64.819 kg HEIGHT 2021-12-18 11:00:00 162.6 cm Systolic blood 2021-12-28 08:35:00 114 mm[Hg] [facility] Diastolic blood 2021-12-28 08:35:00 66 mm[Hg] [facility] Heart rate 2021-12-28 08:35:00 85 /min [facility] Body temperature 2021-12-28 08:35:00 36.61 Carley [facility] Respiratory rate 2021-12-28 08:35:00 18 /min [facility] Oxygen saturation in 2021-12-28 08:35:00 97 /min [facility] Arterial blood by Medical nter Pulse oximetry Body height 2021-12-18 11:00:00 162.6 cm [facility] Body weight 2021-12-18 11:00:00 64.819 kg [facility] BMI 2021-12-18 11:00:00 24.53 kg/m2 [facility] Procedures Procedure Date / Time Performing Source Performed Clinician AUTHORIZATION FOR RELEASE OF PHI 2022-10-18 [facility] 05:01:00 Unassigned, No [facility] MAGNESIUM 2022-10-09 Caro Starks [facility] 10:24:00 [facility] HEPATIC FUNCTION PANEL ([id number]) 2022-10-09 Caro Starks niversity of (ALB,T.PRO,BILI 10:24:00 [facility] T,BU/BC,ALT,AST,ALK PHOS) [place] BASIC METABOLIC PANEL (NA, K, CL, 2022-10-09 Caro Starks of CO2, GLUCOSE, BUN, CREATININE, CA) 10:24:00 [facility] CBC WITH DIFF 2022-10-09 Caro Starks [facility] 10:24:00 [facility] PROTHROMBIN TIME / INR 2022-10-09 [facility] 10:24:00 [facility] CBC WITHOUT DIFF 2022-10-08 [facility] 22:45:00 [facility] MAGNESIUM 2022-10-08 Zuleyka [facility] 10:28:00 [facility] HEPATIC FUNCTION PANEL ([id number]) 2022-10-08 Tabatha Groves niversity of (ALB,T.PRO,BILI 10:28:00 [facility] T,BU/BC,ALT,AST,ALK PHOS) [place] BASIC METABOLIC PANEL (NA, K, CL, 2022-10-08 Zuleyka [facility] of CO2, GLUCOSE, BUN, CREATININE, CA) 10:28:00 [facility] CBC WITH DIFF 2022-10-08 Zuleyka [facility] of 10:28:00 [facility] IRON PANEL 2022-10-07 Zuleyka [facility] 22:55:00 [facility] BLOOD CULTURE SCREEN 2022-10-07 Yaneli [facility] of 19:11:00 [facility] BLOOD CULTURE SCREEN 2022-10-07 Yaneli [facility] 18:30:00 [facility] TROPONIN I 2022-10-07 Yaneli [facility] of 16:28:00 [facility] HEPATIC FUNCTION PANEL ([id number]) 2022-10-07 GrovesTabatha U niversity of (ALB,T.PRO,BILI 16:28:00 [facility],BU/BC,ALT,AST,ALK PHOS) [place] BASIC METABOLIC PANEL (NA, K, CL, 2022-10-07 Groves, [facility] of CO2, GLUCOSE, BUN, CREATININE, CA) 16:28:00 [facility] CBC WITH DIFF 2022-10-07 [facility], [facility] of 16:28:00 [facility] PROTHROMBIN TIME / INR 2022-10-07 [facility] 16:28:00 [facility] ACTIVATED PARTIAL THRMPLAS JOVAN 2022-10-07 Groves, [facility] niversity of 16:28:00 [facility] FIBRINOGEN 2022-10-07 Groves [facility] of 16:28:00 [facility] HB ABO GROUPING 2022-10-07 [facility], [facility] of 16:28:00 [facility] EXTERNAL PROVIDER RECORDS 2022-09-01 [facility] mcy of 06:01:00 Unassigned, No [facility] COMP. METABOLIC PANEL ([id number]) 2022-08-24 Maya Nguyen iversity of 10:03:00 [facility] CBC WITH DIFF 2022-08-24 Maya Nguyen Ron[place] of 10:03:00 [facility] PROTHROMBIN TIME / INR 2022-08-23 [facility] of 19:38:00 [facility] FIBRINOGEN 2022-08-23 [facility] 19:38:00 [facility] ESOPHAGOGASTRODUODENOSCOPY 2022-08-23 John Paul Zuniga Unive rsity of 15:26:00 [facility] EGD (ENDO) 2022-08-23 Maya Nguyen [place] of 15:18:04 [facility] MAGNESIUM 2022-08-23 Ulysses Allen of 07:39:00 [facility] BASIC METABOLIC PANEL (NA, K, CL, 2022-08-23 Ulysses Allen Ronan of CO2, GLUCOSE, BUN, CREATININE, CA) 07:39:00 [facility] CBC WITH DIFF 2022-08-23 Ulysses Allen of 07:39:00 [facility] ENDOSCOPY PROCEDURE DOCUMENTATION 2022-08-23 [facility] of 06:01:00 Unassigned, No [facility] TRANSTHORACIC ECHO (TTE) COMPLETE 2022-08-22 Ulysses Allen of 20:45:45 [facility] URINALYSIS 2022-08-22 [facility] of 20:06:00 [facility] COVID-19 (ID NOW RAPID TESTING) 2022-08-22 [facility] [place] of 17:35:00 [facility] LAB ONLY COVID INTERPRETATION 2022-08-22 Stone Obregon iversity of 17:35:00 [facility] CBC WITHOUT DIFF 2022-08-22 Ulysses Allen [place] of 17:01:00 [facility] FIBRINOGEN 2022-08-22 Ulysses Allen [facility] 17:00:00 [facility] DUPLEX VENOUS LEGS BILATERAL - BY 2022-08-22 Stone [place] of VASCULAR LAB 16:45:27 [facility] XR CHEST 1 VW 2022-08-22 Stone [place]regon of 14:52:51 [facility] TRANSFUSE PACKED RBC 2022-08-22 [facility] 10:33:00 [facility] PREPARE PACKED RBC 2022-08-22 Stone Obregon Ronan of 10:17:48 [facility] POCT GLUCOSE (AUTOMATED) 2022-08-22 Rivka Palacios ity of 10:04:00 [facility] TROPONIN I 2022-08-22 [facility] [place] of 08:16:00 [facility] HEPATIC FUNCTION PANEL ([id number]) 2022-08-22 Stone Obregon niversity of (ALB,T.PRO,BILI 08:16:00 [facility],BU/BC,ALT,AST,ALK PHOS) [place] BASIC METABOLIC PANEL (NA, K, CL, 2022-08-22 Stone Obregon of CO2, GLUCOSE, BUN, CREATININE, CA) 08:16:00 [facility] ABORH CONFIRMATION (LAB ONLY) 2022-08-22 Stone Obregon iversity of 08:12:00 [facility] HB ABO GROUPING 2022-08-22 Stone [place]regon of 05:59:00 [facility] US ABDOMEN LIMITED 2022-08-22 Sabas [facility] of 04:56:28 [facility] BLOOD CULTURE SCREEN 2022-08-22 Sabas [facility] of 03:52:00 [facility] ETHANOL 2022-08-22 Sabas, [facility] of 03:51:00 [facility] PROTHROMBIN TIME / INR 2022-08-22 [facility] 03:51:00 [facility] ACTIVATED PARTIAL THRMPLAS JOVAN 2022-08-22 Shahriar Obregonmy U niversity of 03:51:00 [facility] MAGNESIUM 2022-08-22 Sabas, [facility] of 03:24:00 [facility] FERRITIN SERUM 2022-08-22 Sabas, [facility] of 03:24:00 [facility] VITAMIN B12, LEVEL 2022-08-22 Sabas [facility] of 03:24:00 [facility] FOLATE 2022-08-22 Sabas [facility] of 03:24:00 [facility] TROPONIN I 2022-08-22 Sabas [facility] of 03:24:00 [facility] HEPATIC FUNCTION PANEL ([id number]) 2022-08-22 Stone Obregon niversity of (ALB,T.PRO,BILI 03:24:00 [facility],BU/BC,ALT,AST,ALK PHOS) Branch BASIC METABOLIC PANEL (NA, K, CL, 2022-08-22 Sabas [facility] of CO2, GLUCOSE, BUN, CREATININE, CA) 03:24:00 [facility] LIPID PANEL ([id number])(TOTAL 2022-08-22 [facility] of CHOLESTEROL, TRIGLYCERIDES, HDL) 03:24:00 [facility] IRON PANEL 2022-08-22 [facility] of 03:24:00 [facility] SALICYLATE 2022-08-22 Sabas [facility] of 03:24:00 [facility] CBC WITH DIFF 2022-08-22 Sabas [facility] of 03:24:00 [facility] GLYCOSYLATED HEMOGLOBIN (A1C) 2022-08-22 Stone Obregon Un iversity of 03:24:00 [facility] HEPATITIS B SURFACE ANTIBODY 2022-08-22 Stone Obregon Uni versity of 03:24:00 [facility] HEPATITIS B SURFACE ANTIGEN 2022-08-22 Shahriar Obregonmy Univ ersity of 03:24:00 [facility] HCV ANTIBODY 2022-08-22 [facility] 03:24:00 [facility] HEPATITIS B CORE ANTIBODY IGM 2022-08-22 Stone [place]regon iversity of 03:24:00 [facility] HAV ANTIBODY (IGG AND IGM) 2022-08-22 [facility] [place] rsity of 03:24:00 [facility] HEPATITIS C VIRUS (HCV) BY 2022-08-22 Stone Obregon [facility] rsity of QUANTITATIVE NAAT 03:24:00 [facility] EXTRA TUBE RED 2022-08-22 Mars [facility] of 03:24:00 Carleen [facility] HB ECG ROUTINE & RHYTHM STRIP 2022-08-22 Stone [place]regon iversity of 01:50:38 [facility] CBC W/PLT COUNT & AUTO 2021-12-[address] [facility] DIFFERENTIAL 04:28:00 [facility] (MANUAL DIFFERENTIAL) 2021-12-[address] [facility] [facility] 04:28:00 [facility] CBC W/PLT COUNT & AUTO 2021-12-28 Kay Alberto Siraj [facility] DIFFERENTIAL 04:28:00 [facility] COMPREHENSIVE METABOLIC PANEL 2021-12-28 Kay Alberto Siraj [facility] 04:28:00 [facility] MAGNESIUM 2021-12-[address] Albertoman [address]aj [facility] 04:28:00 [facility] XR CHEST 1 VIEW PORTABLE / BEDSIDE 2021-12-28 Kay [address] [facility] 01:23:00 [facility] CBC (HEMOGRAM ONLY) 2021-12-27 Tiara, Marcel [facility] 03:38:00 Medical Center BASIC METABOLIC PANEL 2021-12-27 [facility]ara[facility] 03:38[facility] US ABDOMEN LIMITED 2021-12-26 Tiara, Marcel [facility] 17:53:00 [facility] CBC (HEMOGRAM ONLY) 2021-12-26 Tiara, Marcel [facility] 04:34:00 [facility] BASIC METABOLIC PANEL 2021-12-26 Tiara[facility] 04:34:00 [facility] MAGNESIUM 2021-12-26 Tiara, Marcel [facility] 04:34:00 [facility] CBC (HEMOGRAM ONLY) 2021-12-25 Tiara, Marcel [facility] 10:57:00 [facility] BASIC METABOLIC PANEL 2021-12-25 Tiara, [facility] 10:57:00 [facility] BASIC METABOLIC PANEL 2021-12-24 Tiara, Marcel [facility] 04:54:00 [facility] BASIC METABOLIC PANEL 2021-12-23 Nisnisan, Josier [facility]es 04:39:00 [facility] MAGNESIUM 2021-12-23 Nisnisan, Josier [facility] 04:39:00 [facility] BASIC METABOLIC PANEL 2021-12-22 Nisnisan, Josier [facility] 06:13:00 [facility] MAGNESIUM 2021-12-22 Nisnisan, Josier [facility] 06:13:00 [facility] CBC (HEMOGRAM ONLY) 2021-12-22 Tiara, Marcel [facility] 06:13:00 [facility] BASIC METABOLIC PANEL 2021-12-21 Nisnisan, Josier [facility] 05:08:00 [facility] MAGNESIUM 2021-12-21 Nisnisan, Josier [facility] 05:08:00 [facility] CBC (HEMOGRAM ONLY) 2021-12-21 Tiara, Marcel [facility] 05:08:00 [facility] CBC W/PLT COUNT & AUTO 2021-12-20 Pongvachararak, [facility] DIFFERENTIAL 06:45:00 [facility] CBC W/PLT COUNT & AUTO 2021-12-20 Pongvachararak, [facility] DIFFERENTIAL 06:45:00 [facility] COMPREHENSIVE METABOLIC PANEL 2021-12-20 Pongvachararak[facility] 06:45:00 [facility] PREPARE LEUKO-REDUCED RBC 2021-12-[address] [facility] 23:54:00 [facility] CBC W/PLT COUNT & AUTO 2021-12-19 Pongvachararak, [facility] DIFFERENTIAL 05:52:00 [facility] CBC W/PLT COUNT & AUTO 2021-12-19 Estefany, [facility] DIFFERENTIAL 05:52:00 [facility] COMPREHENSIVE METABOLIC PANEL 2021-12-19 Estef[facility] 05:52:00 [facility] TRANSFUSE LEUKO-REDUCED RED BLOOD 2021-12-[address] [facility] CELLS 14:42:00 [facility] ABORH, MANUAL 2021-12-[address] [facility] 10:42:00 [facility] CBC W/PLT COUNT & AUTO 2021-12-18 Estefany, [facility] DIFFERENTIAL 06:21:00 [facility] HEPATIC FUNCTION PANEL 2021-12-[address] [facility] 06:21:00 [facility] LIPID PANEL 2021-12-18 Estefany, [facility] 06:21:00 [facility] PROTHROMBIN TIME/INR 2021-12-[address] 06:21:00 [facility] CBC W/PLT COUNT & AUTO 2021-12-18 Estefany, [facility] DIFFERENTIAL 06:21:00 [facility] AMMONIA 2021-12-[address] [facility] 06:21:00 [facility] COMPREHENSIVE METABOLIC PANEL 2021-12-[address] [facility] 06:21:00 [facility] TYPE AND SCREEN, AUTOMATED 2021-12-18 [facility] 06:21:00 [facility] EKG-SCANNED 2021-12-18 Provider, Default [facility] 00:00:00 [facility] Plan of Care Planned Activity Planned Date Details Comments Source Future Scheduled 2024-12-18 Lipid panel (procedure) [facility] Test 00:00:00 [code = 06879351] Medical Ce nter Future Scheduled 2024-12-18 Lipid panel (procedure) [facility] 00:00:00 [code = 26835254] Medical Ce nter Future Scheduled 2024-12-18 Lipid panel (procedure) [facility] 00:00:00 [code = 58538145] Medical Ce nter Future Scheduled 2024-12-18 Lipid panel (procedure) [facility] Test 00:00:00 [code = 94131924] Medical Ce nter Future Scheduled 2024-12-18 Lipid panel (procedure) [facility] 00:00:00 [code = 69256387] Medical Ce nter Future Scheduled 2024-12-18 Lipid panel (procedure) [facility] 00:00:00 [code = 06542793] Medical Ce nter Future Scheduled 2024-12-18 Lipid panel (procedure) [facility] 00:00:00 [code = 47645920] Medical Ce nter Future Scheduled 2024-12-18 Lipid panel (procedure) [facility] Test 00:00:00 [code = 42716783] Medical Ce nter Future Scheduled 2023-03-24 INFLUENZA [...] [facility] Test 00:00:00 2) [code = SHINGLES [facility] VACCINES (1 of 2)] Future Scheduled 2014 SHINGLES VACCINES ([address] [facility] 00:00[facility]00 [facility] Future Scheduled 1983-11-21 [...] [facility] Test 00:00:00 [code = CT Colonography [facility] (combo)] Future Scheduled 1964 Screening for malignant [facility] Test 00:00:00 neoplasm of colon Medical Ce nter (procedure) [code = 148117242] Future Scheduled 1964 Screening for malignant [facility] Test 00:00:00 neoplasm of colon Medical Ce nter (procedure) [code = 840819497] Future Scheduled 1964 Screening for malignant [facility] Test 00:00:00 neoplasm of colon Medical Ce nter (procedure) [code = 259164241] Future Scheduled 1964 Screening for malignant [facility] Test 00:00:00 neoplasm of colon Medical Ce nter (procedure) [code = 347248270] Future Scheduled 1964 Sigmoidoscopy [code = [facility] Sigmoidoscopy] Medical Cente r Future Scheduled 1964 CT Colonography (combo) [facility] Test 00:00:00 [code = CT Colonography [facility] (combo)] Future Scheduled 1964 Screening for malignant [facility] Test 00:00:00 neoplasm of colon Medical Ce nter (procedure) [code = 231744310] Future Scheduled 1964 Screening for malignant [facility] Test 00:00:00 neoplasm of colon Medical Ce nter (procedure) [code = 787209116] Future Scheduled 1964 Screening for malignant [facility] Test 00:00:00 neoplasm of colon Medical Ce nter (procedure) [code = 652685460] Future Scheduled 1964 Screening for malignant [facility] Test 00:00:00 neoplasm of colon Medical Ce nter (procedure) [code = 693665834] Future Scheduled 1964 Sigmoidoscopy [code = [facility] 00:[facility] Sigmoidoscopy] Medical Cente r Future Scheduled 1964 CT Colonography (combo) [facility] Test 00:00:00 [code = CT Colonography [facility] (combo)] Future Scheduled 1964 Screening for malignant [facility] Test 00:00:00 neoplasm of colon Medical Ce nter (procedure) [code = 796256195] Future Scheduled 1964 Screening for malignant [facility] Test 00:00:00 neoplasm of colon Medical Ce nter (procedure) [code = 151714252] Future Scheduled 1964 Screening for malignant [facility] Test 00:00:00 neoplasm of colon Medical Ce nter (procedure) [code = 514233297] Future Scheduled 1964 Screening for malignant [facility] Test 00:00:00 neoplasm of colon Medical Ce nter (procedure) [code = 090296754] Future Scheduled 1964 Sigmoidoscopy [code = [facility] 00:[facility] Sigmoidoscopy] Medical Cente r Future Scheduled 1964 CT Colonography (combo) [facility] Test 00:00:00 [code = CT Colonography [facility] (combo)] Future Scheduled 1964 Screening for malignant [facility] Test 00:00:00 neoplasm of colon Medical Ce nter (procedure) [code = 347242163] Future Scheduled 1964 Screening for malignant [facility] Test 00:00:00 neoplasm of colon Medical Ce nter (procedure) [code = 041562418] Future Scheduled 1964 Screening for malignant [facility] Test 00:00:00 neoplasm of colon Medical Ce nter (procedure) [code = 804915949] Future Scheduled 1964 Screening for malignant [facility] Test 00:00:00 neoplasm of colon Medical Ce nter (procedure) [code = 050485321] Future Scheduled 1964 Sigmoidoscopy [code = [facility] 00:00:00 Sigmoidoscopy] Medical Cente r Future Scheduled 1964 CT Colonography (combo) [facility] Test 00:00:00 [code = CT Colonography [facility] (combo)] Future Scheduled 1964 Screening for malignant [facility] Test 00:00:00 neoplasm of colon Medical Ce nter (procedure) [code = 614452540] Future Scheduled 1964 Screening for malignant [facility] Test 00:00:00 neoplasm of colon Medical Ce nter (procedure) [code = 719954124] Future Scheduled 1964 Screening for malignant [facility] Test 00:00:00 neoplasm of colon Medical Ce nter (procedure) [code = 017955092] Future Scheduled 1964 Screening for malignant [facility] Test 00:00:00 neoplasm of colon Medical Ce nter (procedure) [code = 600138803] Future Scheduled 1964 Sigmoidoscopy [code = [facility] 00:00:00 Sigmoidoscopy] Medical Cente r Future Scheduled 1964 CT Colonography (combo) [facility] Test 00:00:00 [code = CT Colonography [facility] (combo)] Future Scheduled 1964 Screening for malignant [facility] Test 00:00:00 neoplasm of colon Medical Ce nter (procedure) [code = [id number]] Future Scheduled 1964 Screening for malignant [facility] 00:00:00 neoplasm of colon Medical Ce nter (procedure) [code = 740671291] Future Scheduled 1964 Screening for malignant [facility] 00:00:00 neoplasm of colon Medical Ce nter (procedure) [code = 134268518] Future Scheduled 1964 Screening for malignant [facility] 00:00:00 neoplasm of colon Medical Ce nter (procedure) [code = 876557812] Future Scheduled 1964 Sigmoidoscopy [facility]code = [facility]] Medical Cent[facility] r Future Scheduled 1964 CT Colonography (combo) [facility] 00:00:00 [code = CT [facility] ([facility]bo)] Future Scheduled 1964 Screening for malignant [facility] 00:00:00 neoplasm of colon Medical Ce nter (procedure) [code = 942550876] Future Scheduled 1964 Screening for malignant [facility] 00:00:00 neoplasm of colon Medical Ce nter (procedure) [code = 147655264] Future Scheduled 1964 Screening for malignant [facility] 00:00:00 neoplasm of colon Medical Ce nter (procedure) [code = 555209287] Future Scheduled 1964 Screening for malignant [facility] 00:00:00 neoplasm of colon Medical Ce nter (procedure) [code = 540785495] Future Scheduled 1964 Sigmoidoscopy [facility]code = [facility]oscopy] Medical Cente r Future Scheduled 1964 CT Colonography (combo) [facility] 00:00:00 [code = CT [facility] ([facility])] Future Scheduled 1964 Screening for malignant [facility] 00:00:00 neoplasm of colon Medical Ce nter (procedure) [code = 453021532] Future Scheduled 1964 Screening for malignant [facility] 00:00:00 neoplasm of colon Medical Ce nter (procedure) [code = 378066337] Future Scheduled 1964 Screening for malignant [facility] 00:00:00 neoplasm of colon Medical Ce nter (procedure) [code = 596241764] Future Scheduled 1964 Screening for malignant [facility] 00:00:00 neoplasm of colon Medical Ce nter (procedure) [code = 758095972] Future Scheduled 1964 Sigmoidoscopy [code = [facility] S[facility]oscopy] Medical Yasmanye r Encounters Start End Encounter Admission Attending Care Care Encounter Source Date/Time Date/Time Type Type Clinicians Facility Department ID 2022-09-27 Inpatient TEXANA TEX[place] [id number] [place] 08:[place]:44 [id number] [facility] 2022-03-17 Inpatient TEXANA TEXANA [id number] [place] 08:41:23 [id number] [facility] 2022-02-01 Inpatient TEXANA TEXANA [id number] [place] 10:02:35 [id number] [facility] 2022-01-21 Inpatient TEXANA TEXANA [id number] [place] 12:27:16 [id number] [facility] 2022-01-20 Inpatient TEXANA TEXANA [id number] [place] 08:13:32 [id number] [facility] 2023-01-01 2023-01-01 Outpatient E NIDHI [facility] [id number] [address] [place] [address] 19:05:00 20:30:00 [facility]22-12-26 2022-12-26 Emergency ER MINA, [facility] D000 [id number] [place] 02:43:00 05:10:00 PRESTON -[id number] [facility] 2022-12-14 2022-12-19 Inpatient ER KAY ALBERTO [facility] [id number] [facility] 12:33:00 14:45:00 2022-10-26 2022-10-26 Emergency ER JAKMAXWELLTORY, [facility] D000 [id number] [place] 00:01:00 05:12:00 PRESTON -[id number] [facility] 2022-10-24 2022-10-24 Emergency ER JAKMAXWELLTORY, [facility] D000 [id number] [place] 00:39:00 07:00:00 PRESTON -[id number] [facility] 2022-10-18 2022-10-18 Orders Doctor JUANITA [id number] [facility] 00:00:00 00:00:00 Only Unassigned, GERARDO 350.1.13.10 ity of [place] [facility] 4.2.7.2.686 [place] [phone] [place] [id number] [address] 2022-10-07 2022-10-09 Outpatient Zahira CONN [facility] [id number] [facility] 10:10:00 15:15:00 RUBEN it y of [facility] 2022-10-07 2022-10-09 Hospital Pardeep Moody 1.2. 840.114 [id number] [facility] 10:10:00 15:15:00 Encounter Ruben Conn 350.1.13 .10 ity of [facility] 4.2.7.2.686 [place] as [phone] [facility] [address] 2022-09-28 2022-09-28 Emergency ER Jakmaxwellcarsonumang, [facility] D000 [id number] [place] 01:38:00 06:55:00 [id number] [facility] 2022-09-20 2022-09-20 Outpatient [facility] [id number] [place] 00:00:00 00:00:00 _ANN [id number] [facility] 2022-09-15 2022-09-15 Outpatient [facility] 120 [id number] [place] 00:00:00 00:00:00 _ANN [id number] [facility] 2022-09-01 2022-09-01 Orders Doctor JUANITA [id number] Univers 00:00:00 00:00:00 Only Unassigned, GERARDO 350.1.13.10 ity of [place] [facility] 4.2.7.2.686 [place] [phone] [facility] [address] 2022-08-25 2022-08-25 Transition TENNILLE Partida 1.2.840.114 [id number] Univers 00:00:00 00:00:00 of Care Tamara MOODY 350.1.13.10 [place]2.[place] [phone] [facility] [address] 2022-08-25 2022-08-25 Telephone AMY Nguyen 1.2.511.029 [id number] Univers 00:00:00 00:00:00 Maya CARRILLO 350.1.13.10 it y of [facility] 4.2.7.2.686 [place] [phone] [facility] heriberto [address] 2022-08-21 2022-08-24 Inpatient U MARS [facility] [id number] Univers 19:04:00 14:48:00 [facility] 2022-08-21 2022-08-24 Rivka Clements 1. 2.840.114 [id number] Univers 19:04:00 14:48:00 Encounter Sujit Vazquez Diane CARRILLO 350.1.13. 10 [facility] 4.2.7.2.686 [place] [phone] [facility] [address] 2022-06-08 2022-06-09 Outpatient E JEOVANY [facility] [id number] [place] 22:06:00 01:10:00 KARRI [facility] 2022-05-20 2022-05-20 Outpatient [facility] [id number] [place] 09:20:24 09:20:24 [id number] F Bruno 2022-04-21 2022-04-21 Outpatient Nguyen_Tho [facility] 1203 [place] 00:00:00 00:00:00 [id number] [facility] 2022-04-21 2022-04-21 Outpatient Nguyen_Tho [facility] 1203 [place] 00:00:00 00:00:00 [id number] [facility] 2022-02-24 2022-02-24 Outpatient Nguyen_Tho [facility] 1203 [place] 00:00:00 00:00:00 [id number] [facility] 2021-12-18 2021-12-28 [facility] Kay Riddle Siraj [facility] [id number] 03[facility]17[facility]00 14:00:00 Encounter Marcel Menjivar [facility] 2021-12-18 2021-12-28 [id number] [facility] 03:17:00 14:00:00 Med 2021-12-18 2021-12-18 Travel [facility] [id number] [facility] 00[facility]00 [facility] 2019-03-27 2019-03-27 Outpatient E ADY CONN [facility] [id number] [facility] 09:29:00 10:45:00 [facility] Results Test Description Test Time Test Comments Results Result Comments Source Dustin 8 Panel *OW* melissa 2023-01-01 19:40:00 Test Item Value Reference Range Interpretation Comme nts GLUCOSE (test code = GGUL) 102 mg/dL 73-118 BUN (test code = GBUN) 7 mg/dL 7-22 CREATININE (test code = GCRE) 1.2 mg/dL 0.6-1.2 CK TOTAL (test code = GCK) 116 U/L 39-380 SODIUM (test code = GNA+) 136 mmol/L 128-145 POTASSIUM (test code = GK+) 4.3 mmol/L 3.6-5.1 CHLORIDE (test code = GCL-) 104 mmol/L 98-108 TCO2 (test code = GTC02) 26 mmol/L 18-33 CBC (INCLUDES AUTOMATED DIFFERENTIAL) *2023-01-01 19:30:00 Test Item Value Reference Range Interpretation Comments WBC (test code = WBC) 8.4 10\\S\\3/uL 4.5-11.0 RBC (test code = RBC) 3.07 10\\S\\6/uL 4.20-5.60 L HGB (test code = HBG) 8.8 g/dL 14.0-18.0 L HCT (test code = HCT) 30.0 % 35.0-46.0 L MCV (test code = MCV) 97.7 fL 80.0-94.0 H MCH (test code = MCH) 28.7 pg 27.0-31.0 MCHC (test code = MCHC) 29.3 g/dL 32.0-36.0 L RDW (test code = RDW) 14.0 % 11.5-14.5 PLT (test code = PLT) 275 10\\S\\3/uL 130-400 MPV (test code = OMPV) 8.0 fL 6.2-10.2 NEUTROP # (test code = NE#) 4.2 10\\S\\3/uL 2.0-8.0 LYMPH # (test code = LY#) 2.9 10\\S\\3/uL 1.2-4.0 MID # (test code = GMID#) 1.3 10\\S\\3/uL 0.0-1.1 H GRAN % (test code = GRA%) 50.4 % 35.0-73.0 LYMPH % (test code = GLY%) 34.0 % 20.0-55.0 MID % (test code = GMID%) 15.6 % 0.0-10.0 H POCT-GLUCOSE [id number] 12:13:20 Test Item Value Reference Range Interpretation Comments POC-GLUCOSE METER 109 mg/dL 70-110 : TESTED A T [facility] 1317 (BEAKER) (test code [address], = 1538) [facility] 77 478: Manager Project Management/Techni ghassan ID = [id number] for Ruben h, Hayde COMPREHENSIVE METABOLIC [id number] 06:45:36 Test Item Value Reference Range Interpretation Comments TOTAL PROTEIN 7.0 gm/dL 6.0-8.5 (BEAKER) (test code = 770) ALBUMIN (BEAKER) 2.8 g/dL 3.5-5.0 L (test code = 1145) ALKALINE 54 U/L 30-115 PHOSPHATASE (BEAKER) (test code = 346) BILIRUBIN TOTAL 1.9 mg/dL 0.1-1.2 H (BEAKER) (test code = 377) SODIUM (BEAKER) 140 meq/L 135-148 (test code = 381) POTASSIUM (BEAKER) 3.3 meq/L 3.6-5.5 L (test code = 379) CHLORIDE (BEAKER) 111 meq/L 98-106 H (test code = 382) CO2 (BEAKER) (test 17 meq/L 20-29 L code = 355) BLOOD UREA 7 mg/dL 10-26 L NITROGEN (BEAKER) (test code = 354) CREATININE 0.82 mg/dL 0.50-1.20 (BEAKER) (test code = 358) GLUCOSE RANDOM 91 mg/dL 70-110 (BEAKER) (test code = 652) CALCIUM (BEAKER) 7.9 mg/dL 8.5-10.5 L (test code = 697) AST (SGOT) 93 U/L 5-40 H (BEAKER) (test code = 353) ALT (SGPT) 34 U/L 5-50 (BEAKER) (test code = 347) EGFR (BEAKER) 102 Interpretatio n of eGFR (test code = 1092) mL/min/1.[address] age Description sq m Result G1 Bibiana l or high >=90 G2 Mildly decreased 60-89 G3a Mildl y to moderately 45-5 9 G3b Moderately to s everely 30-44 G4 Severl y decreased 15-29 G5 Kidney failure <15Reported eGF R is based on the CKD-EPI 2020 equation that d oes not use a race coefficientEsti mated GFR is not as accur ate as Creatinine Bernarda angella in predicting glom erular filtration rate . Estimated GFR is not appl icable for dialysis patien ts Manager Project Management ID - [id number] ID - [id number] ID - [id number] ID - [id number] ID - SVAZUQIXK430Alwcschd ID - WOWFDGGHN610Hpesuvus ID - EKZSRQZIX465Iwxgolys ID - WVIQRDRSA536Cnjclvja ID - EAMJRFNUM277Ijldlcbn ID - OCOQYISIA634Awvnwdlv ID - [id number] ID - BTVNRYRDK476Xkuyrujh ID - UUZJFYUZP639Coxysxrr ID - MPGWDVZPE771Ehcvsniv ID - MXIBNGCWV989Veuxdkyz ID -JRMGSGQHI736Mibvuuul ID - PSTZPFBVX991Dqpjngmk ID - GDXCQFBSP466Chclwdyz ID - [id number] 06:07:46 Test Item Value Reference Range Interpretation Comments AMMONIA (BEAKER) (test code = 348) 49 mol/L 17-80 Manager Project Management ID - [id number] ID - [id number] ID - EKNJGFHFD794Bvyrnach ID - [id number] W/PLT COUNT & AUTO DIFFERENTIAL 2022-12-19 05:59:52 Test Item Value Reference Range Interpretation Comments WHITE BLOOD CELL COUNT (BEAKER) 7.8 K/ L 4.0-10.0 (test code = 775) RED BLOOD CELL COUNT (BEAKER) 3.10 M/ L 4.20-5.80 L (test code = 761) HEMOGLOBIN (BEAKER) (test code = 9.2 GM/DL 13.0-16.8 L 410) HEMATOCRIT (BEAKER) (test code = 29.2 % 36.0-50.0 L 411) MEAN CORPUSCULAR VOLUME (BEAKER) 94 fL 82-99 (test code = 753) MEAN CORPUSCULAR HEMOGLOBIN 29.7 pg 27.0-33.0 (BEAKER) (test code = 751) MEAN CORPUSCULAR HEMOGLOBIN CONC 31.5 GM/DL 32.0-36.0 L (BEAKER) (test code = 752) RED CELL DISTRIBUTION WIDTH 16.3 % 12.0-15.0 H (BEAKER) (test code = 412) PLATELET COUNT (BEAKER) (test 100 K/CU MM 150-430 L code = 756) MEAN PLATELET VOLUME (BEAKER) 11.5 fL 6.0-11.5 (test code = 754) NUCLEATED RED BLOOD CELLS 0 /100 WBC 0-0 (BEAKER) (test code = 413) NEUTROPHILS RELATIVE PERCENT 64 % (BEAKER) (test code = 429) LYMPHOCYTES RELATIVE PERCENT 15 % (BEAKER) (test code = 430) MONOCYTES RELATIVE PERCENT 18 % (BEAKER) (test code = 431) EOSINOPHILS RELATIVE PERCENT 2 % (BEAKER) (test code = 432) BASOPHILS RELATIVE PERCENT 1 % (BEAKER) (test code = 437) NEUTROPHILS ABSOLUTE COUNT 4.98 K/ L 1.80-8.00 (BEAKER) (test code = 670) LYMPHOCYTES ABSOLUTE COUNT 1.13 K/ L 1.48-4.50 L (BEAKER) (test code = 414) MONOCYTES ABSOLUTE COUNT (BEAKER) 1.36 K/ L 0.00-1.30 H (test code = 415) EOSINOPHILS ABSOLUTE COUNT 0.16 K/ L 0.00-0.50 (BEAKER) (test code = 416) BASOPHILS ABSOLUTE COUNT (BEAKER) 0.10 K/ L 0.00-0.20 (test code = 417) IMMATURE GRANULOCYTES-RELATIVE 0.40 % 0.00-0.00 H PERCENT (BEAKER) (test code = 2801) POCT-GLUCOSE [id number] 05:25:15 Test Item Value Reference Range Interpretation Comments POC-GLUCOSE METER 83 mg/dL 70-110 : TESTED A T [facility] 1317 (BEAKER) (test code = [address] [facility], 1538) [place] [id number]: Manager Project Management/Techni ghassan ID = [id number] for Franci Marvin POCT-GLUCOSE [id number] 18:04:57 Test Item Value Reference Range Interpretation Comments POC-GLUCOSE METER 106 mg/dL 70-110 : Notified RN/MD: TESTED ([facility]) (test code AT [facility] [address] = 1538) [place] [id number]: Manager Project Management/Techni ghassan ID = [id number] for Bjorn Bryson [id number] 17:10:56 Test Item Value Reference Range Interpretation Comments AMMONIA (AKER) (test 53 mol/L 17-80 Speci men slightly code = 348) hemolyzed Manager Project Management ID - DSENSONOperator ID - DSENSONOperator ID - DSENSONOperator ID - DSENSONPOCT-GLUCOSE [id number] 12:02:27 Test Item Value Reference Range Interpretation Comments POC-GLUCOSE METER 125 mg/dL 70-110 H : Notified RN/MD: TESTED ([facility]) (test code AT [facility] [address] = 1538) [place] [address]: Manager Project Management/Techni ghassan ID = [id number] for Bjorn Bryson BASIC METABOLIC [id number] 05:31:47 Test Item Value Reference Range Interpretation Comments SODIUM (BEAKER) 141 meq/L 135-148 (test code = 381) POTASSIUM 3.3 meq/L 3.6-5.5 L (BEAKER) (test code = 379) CHLORIDE (BEAKER) 111 meq/L 98-106 H (test code = 382) CO2 (BEAKER) 20 meq/L 20-29 (test code = 355) BLOOD UREA 8 mg/dL 10-26 L NITROGEN (BEAKER) (test code = 354) CREATININE 0.87 mg/dL 0.50-1.20 (BEAKER) (test code = 358) GLUCOSE RANDOM 102 mg/dL 70-110 (BEAKER) (test code = 652) CALCIUM (BEAKER) 8.0 mg/dL 8.5-10.5 L (test code = 697) EGFR (BEAKER) 101 Interpretatio n of eGFR (test code = mL/min/1.73 values Stage De scription 1092) sq m Result G1 Bibiana l or high >=90 G2 Mildly decreased 60-89 G3a Mildl y to moderately 45-5 9 G3b Moderately to s everely 30-44 G4 Severl y decreased 15-29 G5 Kidney failure <15Reported eGF R is based on the CKD-EPI 2020 equation that d oes not use a race coefficientEsti mated GFR is not as accur ate as Creatinine Bernarda perales in predicting glom erular filtration rate . Estimated GFR is not appl icable for dialysis patien ts Manager Project Management ID - LITOOperator ID - LITOOperator ID - LITOOperator ID - LITOOperator ID - LITOOperator ID - LITOOperator ID - LITOOperator ID - LITOOperator ID - LITOOperator ID - LITOOperator ID - LITOOperator ID - LITOOperator ID - LITOCBC W/PLT COUNT & AUTO [id number] 05:07:42 Test Item Value Reference Range Interpretation Comments WHITE BLOOD CELL COUNT (BEAKER) 8.1 K/ L 4.0-10.0 (test code = 775) RED BLOOD CELL COUNT (BEAKER) 3.08 M/ L 4.20-5.80 L (test code = 761) HEMOGLOBIN (BEAKER) (test code = 9.1 GM/DL 13.0-16.8 L 410) HEMATOCRIT (BEAKER) (test code = 29.0 % 36.0-50.0 L 411) MEAN CORPUSCULAR VOLUME (BEAKER) 94 fL 82-99 (test code = 753) MEAN CORPUSCULAR HEMOGLOBIN 29.5 pg 27.0-33.0 (BEAKER) (test code = 751) MEAN CORPUSCULAR HEMOGLOBIN CONC 31.4 GM/DL 32.0-36.0 L (BEAKER) (test code = 752) RED CELL DISTRIBUTION WIDTH 15.9 % 12.0-15.0 H (BEAKER) (test code = 412) PLATELET COUNT (BEAKER) (test code 98 K/CU MM 150-430 L = 756) MEAN PLATELET VOLUME (BEAKER) 10.8 fL 6.0-11.5 (test code = 754) NUCLEATED RED BLOOD CELLS (BEAKER) 0 /100 WBC 0-0 (test code = 413) NEUTROPHILS RELATIVE PERCENT 64 % (BEAKER) (test code = 429) LYMPHOCYTES RELATIVE PERCENT 16 % (BEAKER) (test code = 430) MONOCYTES RELATIVE PERCENT 17 % (BEAKER) (test code = 431) EOSINOPHILS RELATIVE PERCENT 2 % (BEAKER) (test code = 432) BASOPHILS RELATIVE PERCENT 1 % (BEAKER) (test code = 437) NEUTROPHILS ABSOLUTE COUNT 5.15 K/ L 1.80-8.00 (BEAKER) (test code = 670) LYMPHOCYTES ABSOLUTE COUNT 1.25 K/ L 1.48-4.50 L (BEAKER) (test code = 414) MONOCYTES ABSOLUTE COUNT (BEAKER) 1.34 K/ L 0.00-1.30 H (test code = 415) EOSINOPHILS ABSOLUTE COUNT 0.19 K/ L 0.00-0.50 (BEAKER) (test code = 416) BASOPHILS ABSOLUTE COUNT (BEAKER) 0.10 K/ L 0.00-0.20 (test code = 417) IMMATURE GRANULOCYTES-RELATIVE 0.40 % 0.00-0.00 H PERCENT (BEAKER) (test code = 2801) COMPREHENSIVE METABOLIC [id number] 07:47:57 Test Item Value Reference Range Interpretation Comments TOTAL PROTEIN 7.3 gm/dL 6.0-8.5 (BEAKER) (test code = 770) ALBUMIN (BEAKER) 3.0 g/dL 3.5-5.0 L (test code = 1145) ALKALINE 57 U/L 30-115 PHOSPHATASE (BEAKER) (test code = 346) BILIRUBIN TOTAL 2.1 mg/dL 0.1-1.2 H (BEAKER) (test code = 377) SODIUM (BEAKER) 139 meq/L 135-148 (test code = 381) POTASSIUM (BEAKER) 3.4 meq/L 3.6-5.5 L (test code = 379) CHLORIDE (BEAKER) 107 meq/L 98-106 H (test code = 382) CO2 (BEAKER) (test 19 meq/L 20-29 L code = 355) BLOOD UREA 11 mg/dL 10-26 NITROGEN (BEAKER) (test code = 354) CREATININE 0.94 mg/dL 0.50-1.20 (BEAKER) (test code = 358) GLUCOSE RANDOM 110 mg/dL 70-110 (BEAKER) (test code = 652) CALCIUM (BEAKER) 7.8 mg/dL 8.5-10.5 L (test code = 697) AST (SGOT) 114 U/L 5-40 H (BEAKER) (test code = 353) ALT (SGPT) 33 U/L 5-50 (BEAKER) (test code = 347) EGFR (BEAKER) 95 Interpretatio n of eGFR (test code = 1092) mL/min/1.[address] age Description sq m Result G1 Bibiana l or high >=90 G2 Mildly decreased 60-89 G3a Mildl y to moderately 45-5 9 G3b Moderately to s everely 30-44 G4 Severl y decreased 15-29 G5 Kidne y failure <15Reported eGF R is based on the CKD-EPI 2020 equation that d oes not use a race coefficientEsti mated GFR is not as accur ate as Creatinine Bernarda perales in predicting glom erular filtration rate . Estimated GFR is not appl icable for dialysis patien ts Manager Project Management ID - [id number] ID - [id number] ID - BMKC09Hzyqnplx ID - JBIL81Tuohsrtw ID - OEDW12Gbogxlzj ID - XEHE10Kahbxbmh ID - FWBP39Xrkegfvu ID - VNXD46Namprljj ID - EUYU63Xelhrywv ID - ACEF09Pcpceyqf ID - LROQ91Vtraojnp ID - RIMW37Oumqeyda ID - IZPS95Fqqgzbwd ID - ODQD02Gzkmrxbj ID - PPBF51Forskcat ID - [id number] 07:43:08 Test Item Value Reference Range Interpretation Comments MAGNESIUM (BEAKER) (test code = 1.4 mg/dL 1.5-3.0 L 627) Manager Project Management ID - [id number] ID - QHWO37Ehmonpyv ID - KLNB17Biacxdck ID - [id number] CBC W/PLT COUNT & AUTO [id number] 07:29:00 Test Item Value Reference Range Interpretation Comments WHITE BLOOD CELL COUNT 8.7 K/ L 4.0-10.0 (BEAKER) (test code = 775) RED BLOOD CELL COUNT (BEAKER) 3.12 M/ L 4.20-5.80 L (test code = 761) HEMOGLOBIN (BEAKER) (test code 9.2 GM/DL 13.0-16.8 L = 410) HEMATOCRIT (BEAKER) (test code 29.0 % 36.0-50.0 L = 411) MEAN CORPUSCULAR VOLUME 93 fL 82-99 (BEAKER) (test code = 753) MEAN CORPUSCULAR HEMOGLOBIN 29.5 pg 27.0-33.0 (BEAKER) (test code = 751) MEAN CORPUSCULAR HEMOGLOBIN 31.7 GM/DL 32.0-36.0 L CONC (BEAKER) (test code = 752) RED CELL DISTRIBUTION WIDTH 16.1 % 12.0-15.0 H (BEAKER) (test code = 412) PLATELET COUNT (BEAKER) (test 93 K/CU MM 150-430 L NO CLOT SEEN code = 756) MEAN PLATELET VOLUME (BEAKER) 11.9 fL 6.0-11.5 H (test code = 754) NUCLEATED RED BLOOD CELLS 0 /100 WBC 0-0 (BEAKER) (test code = 413) NEUTROPHILS RELATIVE PERCENT 68 % (BEAKER) (test code = 429) LYMPHOCYTES RELATIVE PERCENT 15 % (BEAKER) (test code = 430) MONOCYTES RELATIVE PERCENT 14 % (BEAKER) (test code = 431) EOSINOPHILS RELATIVE PERCENT 2 % (BEAKER) (test code = 432) BASOPHILS RELATIVE PERCENT 1 % (BEAKER) (test code = 437) NEUTROPHILS ABSOLUTE COUNT 5.87 K/ L 1.80-8.00 (BEAKER) (test code = 670) LYMPHOCYTES ABSOLUTE COUNT 1.29 K/ L 1.48-4.50 L (BEAKER) (test code = 414) MONOCYTES ABSOLUTE COUNT 1.26 K/ L 0.00-1.30 (BEAKER) (test code = 415) EOSINOPHILS ABSOLUTE COUNT 0.17 K/ L 0.00-0.50 (BEAKER) (test code = 416) BASOPHILS ABSOLUTE COUNT 0.10 K/ L 0.00-0.20 (BEAKER) (test code = 417) IMMATURE GRANULOCYTES-RELATIVE 0.30 % 0.00-0.00 H PERCENT (BEAKER) (test code = 2801) POCT-GLUCOSE [id number] 06:48:36 Test Item Value Reference Range Interpretation Comments POC-GLUCOSE METER 110 mg/dL 70-110 : TESTED A T [facility] [address] (BEAKER) (test code [address], = 1538) [place] [id number]: Manager Project Management/Techni ghassan ID = [id number] for phoenix Ferrer POCT-GLUCOSE [id number] 23:57:43 Test Item Value Reference Range Interpretation Comments POC-GLUCOSE METER 96 mg/dL 70-110 : TESTED A T [facility] (BEAKER) (test code = [address], 1538) [place] [id number]: Manager Project Management/Techni ghassan ID = [id number] for Yayo Morales POCT-GLUCOSE [id number] 17:04:49 Test Item Value Reference Range Interpretation Comments POC-GLUCOSE METER 111 mg/dL 70-110 H : TESTED A T [facility] [address] (BEAKER) (test code [address], = 1538) [place] [id number]: Manager Project Management/Techni ghassan ID = [id number] for Richa Tinsley POCT-GLUCOSE [id number] 12:21:48 Test Item Value Reference Range Interpretation Comments POC-GLUCOSE METER 119 mg/dL 70-110 H : TESTED A T [facility] [address] (BEAKER) (test code [address], = 1538) [place] [id number]: Manager Project Management/Techni ghassan ID = [id number] for Richa Tinsley POCT-GLUCOSE [id number] 08:39:03 Test Item Value Reference Range Interpretation Comments POC-GLUCOSE METER 117 mg/dL 70-110 H : TESTED A T [facility] [address] (BEAKER) (test code [address], = 1538) [place] [id number]: Manager Project Management/Techni ghassan ID = [id number] for Richa Tinsley COMPREHENSIVE METABOLIC [id number] 05:36:17 Test Item Value Reference Range Interpretation Comments TOTAL PROTEIN 7.2 gm/dL 6.0-8.5 (BEAKER) (test code = 770) ALBUMIN (BEAKER) 2.9 g/dL 3.5-5.0 L (test code = 1145) ALKALINE 59 U/L 30-115 PHOSPHATASE (BEAKER) (test code = 346) BILIRUBIN TOTAL 2.2 mg/dL 0.1-1.2 H (BEAKER) (test code = 377) SODIUM (BEAKER) 136 meq/L 135-148 (test code = 381) POTASSIUM (BEAKER) 3.4 meq/L 3.6-5.5 L (test code = 379) CHLORIDE (BEAKER) 105 meq/L 98-106 (test code = 382) CO2 (BEAKER) (test 21 meq/L 20-29 code = 355) BLOOD UREA 9 mg/dL 10-26 L NITROGEN (BEAKER) (test code = 354) CREATININE 0.88 mg/dL 0.50-1.20 (BEAKER) (test code = 358) GLUCOSE RANDOM 115 mg/dL 70-110 H (BEAKER) (test code = 652) CALCIUM (BEAKER) 7.5 mg/dL 8.5-10.5 L (test code = 697) AST (SGOT) 87 U/L 5-40 H (BEAKER) (test code = 353) ALT (SGPT) 28 U/L 5-50 (BEAKER) (test code = 347) EGFR (BEAKER) 101 Interpretatio n of eGFR (test code = 1092) mL/min/1.[address] age Description sq m Result G1 Bibiana l or high >=90 G2 Mildly decreased 60-89 G3a Mildl y to moderately 45-5 9 G3b Moderately to s everely 30-44 G4 Severl y decreased 15-29 G5 Kidney failure <15Reported eGF R is based on the CKD-EPI 2021 equation that d oes not use a race coefficientEsti mated GFR is not as accur ate as Creatinine Bernarda perales in predicting glom erular filtration rate . Estimated GFR is not appl icable for dialysis patien ts Manager Project Management ID - [id number] ID - [id number] ID - [id number] ID - [id number] ID - [id number] ID - [id number] ID - [id number] ID - [id number] ID - [id number] ID - [id number] ID - [id number] ID - [id number] ID - [id number] ID - [id number] ID - [id number] ID - [id number] 05:35:46 Test Item Value Reference Range Interpretation Comments MAGNESIUM (BEAKER) (test code = 1.5 mg/dL 1.5-3.0 627) Manager Project Management ID - [id number] ID - [id number] ID - [id number] ID - [id number] CBC W/PLT COUNT & AUTO [id number] 05:32:21 Test Item Value Reference Range Interpretation Comments WHITE BLOOD CELL COUNT (BEAKER) 7.8 K/ L 4.0-10.0 (test code = 775) RED BLOOD CELL COUNT (BEAKER) 3.11 M/ L 4.20-5.80 L (test code = 761) HEMOGLOBIN (BEAKER) (test code = 9.0 GM/DL 13.0-16.8 L 410) HEMATOCRIT (BEAKER) (test code = 27.8 % 36.0-50.0 L 411) MEAN CORPUSCULAR VOLUME (BEAKER) 89 fL 82-99 (test code = 753) MEAN CORPUSCULAR HEMOGLOBIN 28.9 pg 27.0-33.0 (BEAKER) (test code = 751) MEAN CORPUSCULAR HEMOGLOBIN CONC 32.4 GM/DL 32.0-36.0 (BEAKER) (test code = 752) RED CELL DISTRIBUTION WIDTH 15.6 % 12.0-15.0 H (BEAKER) (test code = 412) PLATELET COUNT (BEAKER) (test code 72 K/CU MM 150-430 L = 756) MEAN PLATELET VOLUME (BEAKER) 12.7 fL 6.0-11.5 H (test code = 754) NUCLEATED RED BLOOD CELLS (BEAKER) 0 /100 WBC 0-0 (test code = 413) NEUTROPHILS RELATIVE PERCENT 66 % (BEAKER) (test code = 429) LYMPHOCYTES RELATIVE PERCENT 17 % (BEAKER) (test code = 430) MONOCYTES RELATIVE PERCENT 13 % (BEAKER) (test code = 431) EOSINOPHILS RELATIVE PERCENT 2 % (BEAKER) (test code = 432) BASOPHILS RELATIVE PERCENT 2 % (BEAKER) (test code = 437) NEUTROPHILS ABSOLUTE COUNT 5.20 K/ L 1.80-8.00 (BEAKER) (test code = 670) LYMPHOCYTES ABSOLUTE COUNT 1.32 K/ L 1.48-4.50 L (BEAKER) (test code = 414) MONOCYTES ABSOLUTE COUNT (BEAKER) 1.04 K/ L 0.00-1.30 (test code = 415) EOSINOPHILS ABSOLUTE COUNT 0.12 K/ L 0.00-0.50 (BEAKER) (test code = 416) BASOPHILS ABSOLUTE COUNT (BEAKER) 0.13 K/ L 0.00-0.20 (test code = 417) IMMATURE GRANULOCYTES-RELATIVE 0.40 % 0.00-0.00 H PERCENT (BEAKER) (test code = 2806) COMPREHENSIVE METABOLIC [id number] 05:19:06 Test Item Value Reference Range Interpretation Comments TOTAL PROTEIN 6.2 gm/dL 6.0-8.5 (BEAKER) (test code = 770) ALBUMIN (BEAKER) 2.6 g/dL 3.5-5.0 L (test code = 1145) ALKALINE 60 U/L 30-115 PHOSPHATASE (BEAKER) (test code = 346) BILIRUBIN TOTAL 1.3 mg/dL 0.1-1.2 H (BEAKER) (test code = 377) SODIUM (BEAKER) 142 meq/L 135-148 (test code = 381) POTASSIUM (BEAKER) 3.5 meq/L 3.6-5.5 L (test code = 379) CHLORIDE (BEAKER) 106 meq/L 98-106 (test code = 382) CO2 (BEAKER) (test 25 meq/L 20-29 code = 355) BLOOD UREA 14 mg/dL 10-26 NITROGEN (BEAKER) (test code = 354) CREATININE 0.81 mg/dL 0.50-1.20 (BEAKER) (test code = 358) GLUCOSE RANDOM 81 mg/dL 70-110 (BEAKER) (test code = 652) CALCIUM (BEAKER) 7.2 mg/dL 8.5-10.5 L (test code = 697) AST (SGOT) 86 U/L 5-40 H (BEAKER) (test code = 353) ALT (SGPT) 27 U/L 5-50 (BEAKER) (test code = 347) EGFR (BEAKER) 103 Interpretatio n of eGFR (test code = 1092) mL/min/1.[address] age Description sq m Result G1 Bibiana l or high >=90 G2 Mildly decreased 60-89 G3a Mildl y to moderately 45-5 9 G3b Moderately to s everely 30-44 G4 Severl y decreased 15-29 G5 Kidney failure <15Reported eGF R is based on the CKD-EPI 2020 equation that d oes not use a race coefficientEsti mated GFR is not as accur ate as Creatinine Bernarda angella in predicting glom erular filtration rate . Estimated GFR is not appl icable for dialysis patien ts Manager Project Management ID - LITOOperator ID - LITOOperator ID - LITOOperator ID - LITOOperator ID - LITOOperator ID - LITOOperator ID - LITOOperator ID - LITOOperator ID - LITOOperator ID - LITOOperator ID - LITOOperator ID - LITOOperator ID - LITOOperator ID - LITOOperator ID - LITOOperator ID - [id number] 05:17:37 Test Item Value Reference Range Interpretation Comments MAGNESIUM (BEAKER) (test code = 1.0 mg/dL 1.5-3.0 LL 627) Manager Project Management ID - LITOOperator ID - LITOOperator ID - LITOOperator ID - LITOCBC W/PLT COUNT & AUTO [id number] 04:44:06 Test Item Value Reference Range Interpretation Comments WHITE BLOOD CELL COUNT (BEAKER) 6.7 K/ L 4.0-10.0 (test code = 775) RED BLOOD CELL COUNT (BEAKER) 2.40 M/ L 4.20-5.80 L (test code = 761) HEMOGLOBIN (BEAKER) (test code = 6.9 GM/DL 13.0-16.8 L 410) HEMATOCRIT (BEAKER) (test code = 22.0 % 36.0-50.0 L 411) MEAN CORPUSCULAR VOLUME (BEAKER) 92 fL 82-99 (test code = 753) MEAN CORPUSCULAR HEMOGLOBIN 28.8 pg 27.0-33.0 (BEAKER) (test code = 751) MEAN CORPUSCULAR HEMOGLOBIN CONC 31.4 GM/DL 32.0-36.0 L (BEAKER) (test code = 752) RED CELL DISTRIBUTION WIDTH 15.9 % 12.0-15.0 H (BEAKER) (test code = 412) PLATELET COUNT (BEAKER) (test code 56 K/CU MM 150-430 L = 756) MEAN PLATELET VOLUME (BEAKER) 10.8 fL 6.0-11.5 (test code = 754) NUCLEATED RED BLOOD CELLS (BEAKER) 0 /100 WBC 0-0 (test code = 413) NEUTROPHILS RELATIVE PERCENT 57 % (BEAKER) (test code = 429) LYMPHOCYTES RELATIVE PERCENT 25 % (BEAKER) (test code = 430) MONOCYTES RELATIVE PERCENT 15 % (BEAKER) (test code = 431) EOSINOPHILS RELATIVE PERCENT 1 % (BEAKER) (test code = 432) BASOPHILS RELATIVE PERCENT 1 % (BEAKER) (test code = 437) NEUTROPHILS ABSOLUTE COUNT 3.79 K/ L 1.80-8.00 (BEAKER) (test code = 670) LYMPHOCYTES ABSOLUTE COUNT 1.67 K/ L 1.48-4.50 (BEAKER) (test code = 414) MONOCYTES ABSOLUTE COUNT (BEAKER) 1.03 K/ L 0.00-1.30 (test code = 415) EOSINOPHILS ABSOLUTE COUNT 0.08 K/ L 0.00-0.50 (BEAKER) (test code = 416) BASOPHILS ABSOLUTE COUNT (BEAKER) 0.09 K/ L 0.00-0.20 (test code = 417) IMMATURE GRANULOCYTES-RELATIVE 0.30 % 0.00-0.00 H PERCENT (BEAKER) (test code = 2801) TROPONIN [id number] 00:14:07 Test Item Value Reference Range Interpretation Comments TROPONIN I (BEAKER) (test code = 397) < ng/mL 0.00-0.15 Troponin I (TnI) levels must be interpreted in the context of the presenting symptoms and the clinical findings. Elevated TnI levels indicate myocardial damage, but are not specific for ischemic heart disease. Elevated TnI levels are seen in patients with other cardiac conditions (including myocarditis and congestive heart failure), and slight TnI elevations occur in patients with other conditions, including sepsis, renal failure, acidosis, acute neurological disease, and persistent tachyarrhythmia.Manager Project Management ID - LITOURINALYSIS W/ [id number] 00:03:35 Test Item Value Reference Range Interpretation Comments COLOR (BEAKER) (test code = Reanna 470) CLARITY (BEAKER) (test code = Clear 469) SPECIFIC GRAVITY UA (BEAKER) 1.010 1.001-1.035 (test code = 468) PH UA (BEAKER) (test code = 7.0 5.0-8.0 467) PROTEIN UA (BEAKER) (test code Trace Negative A = 464) GLUCOSE UA (BEAKER) (test code Negative Negative = 365) KETONES UA (BEAKER) (test code Trace Negative A = 371) BILIRUBIN UA (BEAKER) (test Positive Negative A code = 462) BLOOD UA (BEAKER) (test code = Negative Negative 461) NITRITE UA (BEAKER) (test code Negative Negative = 465) LEUKOCYTE ESTERASE UA (BEAKER) Negative Negative (test code = 466) UROBILINOGEN UA (BEAKER) (test 4.0 code = 463) BACTERIA (BEAKER) (test code = None Seen 517) RBC UA-MANUAL (BEAKER) (test <5 /HPF code = 1659) WBC UA-MANUAL (BEAKER) (test <5 /HPF code = 1661) SQUAMOUS EPITHELIAL MANUAL None Seen /HPF (BEAKER) (test code = 1663) SOURCE(BEAKER) (test code = 2795) TROPONIN [id number] 17:04:20 Test Item Value Reference Range Interpretation Comments TROPONIN I (BEAKER) (test code = 397) < ng/mL 0.00-0.15 Troponin I (TnI) levels must be interpreted in the context of the presenting symptoms and the clinical findings. Elevated TnI levels indicate myocardial damage, but are not specific for ischemic heart disease. Elevated TnI levels are seen in patients with other cardiac conditions (including myocarditis and congestive heart failure), and slight TnI elevations occur in patients with other conditions, including sepsis, renal failure, acidosis, acute neurological disease, and persistent tachyarrhythmia.Manager Project Management ID - [id number] METABOLIC [id number] 16:58:17 Test Item Value Reference Range Interpretation Comments TOTAL PROTEIN 7.8 gm/dL 6.0-8.5 (BEAKER) (test code = 770) ALBUMIN (BEAKER) 3.2 g/dL 3.5-5.0 L (test code = 1145) ALKALINE 91 U/L 30-115 PHOSPHATASE (BEAKER) (test code = 346) BILIRUBIN TOTAL 2.0 mg/dL 0.1-1.2 H (BEAKER) (test code = 377) SODIUM (BEAKER) 141 meq/L 135-148 (test code = 381) POTASSIUM (BEAKER) 3.7 meq/L 3.6-5.5 (test code = 379) CHLORIDE (BEAKER) 103 meq/L 98-106 (test code = 382) CO2 (BEAKER) (test 25 meq/L 20-29 code = 355) BLOOD UREA 13 mg/dL 10-26 NITROGEN (BEAKER) (test code = 354) CREATININE 0.88 mg/dL 0.50-1.20 (BEAKER) (test code = 358) GLUCOSE RANDOM 123 mg/dL 70-110 H (BEAKER) (test code = 652) CALCIUM (BEAKER) 8.2 mg/dL 8.5-10.5 L (test code = 697) AST (SGOT) 110 U/L 5-40 H (BEAKER) (test code = 353) ALT (SGPT) 33 U/L 5-50 (BEAKER) (test code = 347) EGFR (BEAKER) 101 Interpretatio n of eGFR (test code = 1092) mL/min/1.[address] age Description sq m Result G1 Bibiana l or high >=90 G2 Mildly decreased 60-89 G3a Mildl y to moderately 45-5 9 G3b Moderately to s everely 30-44 G4 Severl y decreased 15-29 G5 Kidney failure <15Reported eGF R is based on the CKD-EPI 202 equation that d oes not use a race coefficientEsti mated GFR is not as accur ate as Creatinine Bernarda perales in predicting glom erular filtration rate . Estimated GFR is not appl icable for dialysis patien ts Manager Project Management ID - [id number] ID - [id number] ID - [id number] ID - [id number] - TWCLOR175Oqofnuhg ID - [id number] ID - [id number] ID - [id number] ID - [id number] ID - [id number] ID - [id number] ID - [id number] ID - [id number] ID - [id number] ID - [id number] ID - [id number] [id number] 16:58:11 Test Item Value Reference Range Interpretation Comments MAGNESIUM (BEAKER) (test code = 1.2 mg/dL 1.5-3.0 L 627) Manager Project Management ID - [id number] ID - [id number] ID - [id number] ID - [id number] W/PLT COUNT & AUTO [id number] 16:49:49 Test Item Value Reference Range Interpretation Comments WHITE BLOOD CELL COUNT (BEAKER) 6.9 K/ L 4.0-10.0 (test code = 775) RED BLOOD CELL COUNT (BEAKER) 2.83 M/ L 4.20-5.80 L (test code = 761) HEMOGLOBIN (BEAKER) (test code = 8.2 GM/DL 13.0-16.8 L 410) HEMATOCRIT (BEAKER) (test code = 26.0 % 36.0-50.0 L 411) MEAN CORPUSCULAR VOLUME (BEAKER) 92 fL 82-99 (test code = 753) MEAN CORPUSCULAR HEMOGLOBIN 29.0 pg 27.0-33.0 (BEAKER) (test code = 751) MEAN CORPUSCULAR HEMOGLOBIN CONC 31.5 GM/DL 32.0-36.0 L (BEAKER) (test code = 752) RED CELL DISTRIBUTION WIDTH 15.9 % 12.0-15.0 H (BEAKER) (test code = 412) PLATELET COUNT (BEAKER) (test code 83 K/CU MM 150-430 L = 756) MEAN PLATELET VOLUME (BEAKER) 11.1 fL 6.0-11.5 (test code = 754) NUCLEATED RED BLOOD CELLS (BEAKER) 0 /100 WBC 0-0 (test code = 413) NEUTROPHILS RELATIVE PERCENT 67 % (BEAKER) (test code = 429) LYMPHOCYTES RELATIVE PERCENT 16 % (BEAKER) (test code = 430) MONOCYTES RELATIVE PERCENT 15 % (BEAKER) (test code = 431) EOSINOPHILS RELATIVE PERCENT 0 % (BEAKER) (test code = 432) BASOPHILS RELATIVE PERCENT 2 % (BEAKER) (test code = 437) NEUTROPHILS ABSOLUTE COUNT 4.62 K/ L 1.80-8.00 (BEAKER) (test code = 670) LYMPHOCYTES ABSOLUTE COUNT 1.09 K/ L 1.48-4.50 L (BEAKER) (test code = 414) MONOCYTES ABSOLUTE COUNT (BEAKER) 1.02 K/ L 0.00-1.30 (test code = 415) EOSINOPHILS ABSOLUTE COUNT 0.01 K/ L 0.00-0.50 (BEAKER) (test code = 416) BASOPHILS ABSOLUTE COUNT (BEAKER) 0.15 K/ L 0.00-0.20 (test code = 417) IMMATURE GRANULOCYTES-RELATIVE 0.60 % 0.00-0.00 H PERCENT (BEAKER) (test code = 2801) BASIC METABOLIC PANEL (NA, K, CL, CO2, GLUCOSE, BUN, CREATININE, CA)2022-10-09 11:07:02 Test Item Value Reference Range Interpretation Comments NA (test code = 136 mmol/L 135-145 2772160078) K (test code = 3.6 mmol/L 3.5-5.0 3714201317) CL (test code = 107 mmol/L 98-108 8662540419) CO2 TOTAL (test code = 25 mmol/L 23-31 8078495383) AGAP (test code = 4 2-16 0786421334) BUN (test code = 10 mg/dL 7-23 0722650345) GLUCOSE (test code = 101 mg/dL 70-110 8036365452) CREATININE (test code = 0.73 mg/dL 0.60-1.25 8056116842) CALCIUM (test code = 7.6 mg/dL 8.6-10.6 L 8174677200) eGFR (test code = 110.7 mL/min/1.73m2 6372456918) TERESA (test code = TERESA) Association of [...] tests). Lab Interpretation Abnormal (test code = 23326-2) [facility]:07[facility] Test Item Value Reference Range Interpretation Comments MAGNESIUM (test code = 0408724020) 1.6 mg/dL 1.7-2.4 L Lab Interpretation (test code = Abnormal 48964-2) [facility]53131[facility] (ALB,T.PRO,BILI T,BU/BC,ALT,AST,ALK PHOS)2022-10-09 11:07:02 Test Item Value Reference Range Interpretation Comments TOTAL BILI (test code = 4999198729) 1.4 mg/dL 0.1-1.1 H BILI UNCON (test code = 7438666086) 0.5 mg/dL 0.1-1.1 BILI CONJ (test code = 1337571392) 0.0 mg/dL 0.0-0.3 T PROTEIN (test code = 8150123084) 7.2 g/dL 6.3-8.2 ALBUMIN (test code = 4669498180) 2.9 g/dL 3.5-5.0 L ALK PHOS (test code = 8175483001) 70 U/L 34-122 ALTv (test code = 1742-6) 36 U/L 5-50 AST(SGOT) (test code = 4131316838) 99 U/L 13-40 H Lab Interpretation (test code = Abnormal 56595-8) [facility] / [id number] 10:41:05 Test Item Value Reference Range Interpretation Comments PROTIME PATIENT (test 15.4 See_Comment H [Auto mated message] code = 5964-2) The system [facility] generated this result transmitted ref erence range: 10.1 - 1 2.6 Seconds. The reference range was not used to int erpret this result as normal/abnormal . INR (test code = 6301-6) 1.4 Nor mal INR <1.1; Warfarin Therap eutic range 2.0 to 3. 0 or 2.5 to 3.5, dep ending upon the indica tions. Lab Interpretation (test Abnormal code = 90976-4) [facility] WITH [id number] 10:35:00 Test Item Value Reference Range Interpretation Comments WBC (test code = 6.14 See_Comment [Automated 5690-2) message] The sy stem which generated this result transmitted reference range : 4.20 - 10.70 10*3/?L. The reference range was not used to interpret this result as normal/abnormal . RBC (test code = 2.42 See_Comment L [Automated 789-8) message] The sy [...] (test code = 62.5 fL 38.5-51.6 H 68834-7) RDW-CV (test code = 18.5 % 12.1-15.4 H 788-0) PLT (test code = 102 See_Comment L [Automated 777-3) message] The sy stem which generated this result transmitted reference range : 150 - 328 10*3/ ?L. The reference r geri was not used to interpret this result as normal/abnormal . MPV (test code = 10.6 fL 9.8-13.0 63160-3) NRBC/100 WBC (test 0.0 See_Comment [Automat ed code = 2821938260) message] The system which generated this result transmitted reference range : 0.0 - 10.0 /100 WBCs. The refer ence range was not u sed to interpret th is result as normal/abnormal . NRBC x10^3 (test code See_Comment [Auto mated = 1429530440) message] The s ystem which generated this result transmitted reference range : 10*3/?L. The reference range was not used to interpret this result as normal/abnormal . GRAN MAT (NEUT) % 52.9 % (test code = 770-8) IMM GRAN % (test code 0.30 % = 4008352840) LYMPH % (test code = 25.1 % 736-9) MONO % (test code = 16.0 % 5905-5) EOS % (test code = 4.1 % 713-8) BASO % (test code = 1.6 % 706-2) GRAN MAT x10^3(ANC) 3.25 10*3/uL 1.99-6.95 (test code = 7048733301) IMM GRAN x10^3 (test 0.00-0.06 code = 1521606369) LYMPH x10^3 (test code 1.54 10*3/uL 1.09-3.23 = 731-0) MONO x10^3 (test code 0.98 10*3/uL 0.36-1.02 = 742-7) EOS x10^3 (test code = 0.25 10*3/uL 0.06-0.53 711-2) BASO x10^3 (test code 0.10 10*3/uL 0.01-0.09 H = 704-7) Lab Interpretation Abnormal (test code = 35914-3) [facility] (26547[facility] (ALB,T.PRO,BILI T,BU/BC,ALT,AST,ALK PHOS)2022-10-08 14:50:02 Test Item Value Reference Range Interpretation Comments TOTAL BILI (test code = 2088684929) 1.3 mg/dL 0.1-1.1 H BILI UNCON (test code = 4857051765) 0.7 mg/dL 0.1-1.1 BILI CONJ (test code = 3946298347) 0.0 mg/dL 0.0-0.3 T PROTEIN (test code = 3916724600) 6.8 g/dL 6.3-8.2 ALBUMIN (test code = 4923325138) 3.0 g/dL 3.5-5.0 L ALK PHOS (test code = 5773833052) 96 U/L 34-122 ALTv (test code = 1742-6) 35 U/L 5-50 AST(SGOT) (test code = 9811531124) 106 U/L 13-40 H Lab Interpretation (test code = Abnormal 50576-8) [facility] WITH [id number] 11:09:50 Test Item Value Reference Range Interpretation Comments WBC (test code = 6.51 See_Comment [Automated 6690-2) message] The sy stem which generated this result transmitted reference range : 4.20 - 10.70 10*3/?L. The reference range was not used to interpret this result as normal/abnormal . RBC (test code = 2.46 See_Comment L [Automated 789-8) message] The sy [...] (test code = 63.6 fL 38.5-51.6 H 06192-4) RDW-CV (test code = 19.2 % 12.1-15.4 H 788-0) PLT (test code = 107 See_Comment L [Automated 777-3) message] The sy stem which generated this result transmitted reference range : 150 - 328 10*3/ ?L. The reference r geri was not used to interpret this result as normal/abnormal . MPV (test code = 10.1 fL 9.8-13.0 32908-1) IPF % (test code = 4.4 % 1.2-10.7 Platelet count 1120382223) measured by fluorescence method. NRBC/100 WBC (test 0.0 See_Comment [Automat ed code = 2452712345) message] The system which generated this result transmitted reference range : 0.0 - 10.0 /100 WBCs. The refer ence range was not u sed to interpret th is result as normal/abnormal . NRBC x10^3 (test code See_Comment [Auto mated = 4266787279) message] The s ystem which generated this result transmitted reference range : 10*3/?L. The reference range was not used to interpret this result as normal/abnormal . GRAN MAT (NEUT) % 46.8 % (test code = 770-8) IMM GRAN % (test code 0.30 % = 6167177972) LYMPH % (test code = 31.5 % 736-9) MONO % (test code = 16.6 % 5905-5) EOS % (test code = 3.4 % 713-8) BASO % (test code = 1.4 % 706-2) GRAN MAT x10^3(ANC) 3.05 10*3/uL 1.99-6.95 (test code = 1298737066) IMM GRAN x10^3 (test 0.00-0.06 code = 7173066066) LYMPH x10^3 (test code 2.05 10*3/uL 1.09-3.23 = 731-0) MONO x10^3 (test code 1.08 10*3/uL 0.36-1.02 H = 742-7) EOS x10^3 (test code = 0.22 10*3/uL 0.06-0.53 711-2) BASO x10^3 (test code 0.09 10*3/uL 0.01-0.09 = 704-7) Lab Interpretation Abnormal (test code = 47338-9) [facility] METABOLIC PANEL (NA, K, CL, CO2, GLUCOSE, BUN, CREATININE, CA)2022-10-08 11:01:09 Test Item Value Reference Range Interpretation Comments NA (test code = 137 mmol/L 135-145 4611722682) K (test code = 4.0 mmol/L 3.5-5.0 7819037870) CL (test code = 105 mmol/L 98-108 8263440491) CO2 TOTAL (test code = 28 mmol/L 23-31 0544801174) AGAP (test code = 4 2-16 8559358997) BUN (test code = 12 mg/dL 7-23 0101868068) GLUCOSE (test code = 112 mg/dL 70-110 H 6189692836) CREATININE (test code = 0.87 mg/dL 0.60-1.25 8968475074) CALCIUM (test code = 7.8 mg/dL 8.6-10.6 L 1542369819) eGFR (test code = 90.4 mL/min/1.73m2 8219362095) TERESA (test code = TERESA) Association of [...] tests). Lab Interpretation Abnormal (test code = 32543-1) [facility] 11:01:09 Test Item Value Reference Range Interpretation Comments MAGNESIUM (test code = 9486519337) 1.4 mg/dL 1.7-2.4 L Lab Interpretation (test code = Abnormal 45354-1) [facility] (NA, K, CL, CO2, GLUCOSE, BUN, CREATININE, CA)2022-08-23 08:22:04 Test Item Value Reference Range Interpretation Comments NA (test code = 135 mmol/L 135-145 2339318034) K (test code = 3.6 mmol/L 3.5-5.0 7492220364) CL (test code = 104 mmol/L 98-108 0314929385) CO2 TOTAL (test code = 26 mmol/L 23-31 5664135144) AGAP (test code = 5 2-16 6030409039) BUN (test code = 12 mg/dL 7-23 4160848605) GLUCOSE (test code = 120 mg/dL 70-110 H 4766682775) CREATININE (test code = 1.00 mg/dL 0.60-1.25 0923811505) CALCIUM (test code = 7.3 mg/dL 8.6-10.6 L 4668783826) eGFR (test code = 77.0 mL/min/1.73m2 1595130878) TERESA (test code = TERESA) Association of [...] tests). Lab Interpretation Abnormal (test code = 26596-2) [facility] 08:22:04 Test Item Value Reference Range Interpretation Comments MAGNESIUM (test code = 4612453250) 1.6 mg/dL 1.7-2.4 L Lab Interpretation (test code = Abnormal 57753-5) [facility] WITH [id number] 08:21:28 Test Item Value Reference Range Interpretation Comments WBC (test code = 7.08 See_Comment [Automated 6690-2) message] The sy stem [...] (test code = 52.6 fL 38.5-51.6 H 53181-6) RDW-CV (test code = 17.2 % 12.1-15.4 H 788-0) PLT (test code = 101 See_Comment L [Automated 777-3) message] The sy stem which generated this result transmitted reference range : 150 - 328 10*3/ ?L. The reference r geri was not used to interpret this result as normal/abnormal . MPV (test code = 10.5 fL 9.8-13.0 37164-0) IPF % (test code = 6.6 % 1.2-10.7 Platelet count 2354061063) measured by fluorescence method. NRBC/100 WBC (test 0.4 See_Comment [Automat ed code = 0962716087) message] The system which generated this result transmitted reference range : 0.0 - 10.0 /100 WBCs. The refer ence range was not u sed to interpret th is result as normal/abnormal . NRBC x10^3 (test code 0.03 See_Comment [Auto mated = 8891436813) message] The s ystem which generated this result transmitted reference range : 10*3/?L. The reference range was not used to interpret this result as normal/abnormal . GRAN MAT (NEUT) % 55.7 % (test code = 770-8) IMM GRAN % (test code 0.40 % = 3183867982) LYMPH % (test code = 24.0 % 736-9) MONO % (test code = 16.7 % 5905-5) EOS % (test code = 1.6 % 713-8) BASO % (test code = 1.6 % 706-2) GRAN MAT x10^3(ANC) 3.95 10*3/uL 1.99-6.95 (test code = 3427052678) IMM GRAN x10^3 (test 0.03 10*3/uL 0.00-0.06 code = 7182139614) LYMPH x10^3 (test code 1.70 10*3/uL 1.09-3.23 = 731-0) MONO x10^3 (test code 1.18 10*3/uL 0.36-1.02 H = 742-7) EOS x10^3 (test code = 0.11 10*3/uL 0.06-0.53 711-2) BASO x10^3 (test code 0.11 10*3/uL 0.01-0.09 H = 704-7) Lab Interpretation Abnormal (test code = 41333-5) [facility]ANTITATIVE NAAT 2022-08-22 22:28:25 Test Item Value Reference Range Interpretation Comments HCV Quantitative NAAT 5.28 Not Detected log - log IU/mL (test code IU/mL = 01505-9) HCV Quantitative NAAT 651460 Not Detected - IU/mL (test code = IU/mL 98974-3) HCV Quantitative Detected Not Detected A Interpretation (test code = 0875868941) TERESA (test code = TERESA) The Aptima HCV Quant Dx assay is an FDA-approved real-time sander wooden pencils-mediated amplification (TMA) test used for both detection [...] indicated. Lab Interpretation Abnormal (test code = 04545-2) [facility] Packed RBC (in units), 1 Units 2022-08-22 10:17:48 Test Item Value Reference Range Interpretation Comments Cross Match Result Compatible (test code = 4409) ISBT Blood Type Code 5100 (test code = 346600) Unit Blood Type (test O Pos code = 4410) Unit Number (test [id number] code = 4411) Blood Expiration Date & Time (test code = 651888) Status Information Issued (test code = 4412) Product Red Blood Cells Identification (test code = 4413) Product Code (test W3736T82 Performed at [facility] code = 4414) Laboratory [facility] - [facility] Blood [address]vesSelect [facility] Hospital [facility] Bloomingtonlamar [address]Lkao Free: [phone] A No. [id number] [facility] GLU[facility]SE (AUTOMATED)2022-08-22 10:05:36 Test Item Value Reference Range Interpretation Comments POCT GLU (test code = 9157241924) 98 mg/dL 70-110 Lab Interpretation (test code = Normal 04383-0) [facility]TR[facility] V7183-50-10 09:07:59 Test Item Value Reference Interpretation Comments Range TROPONIN I (test 0.005 ng/mL See_Comment [Automated code = 2451006994) message] The system which generated this result [...] biotin. Lab Interpretation Normal (test code = 35679-1) [facility] (NA, K, CL, CO2, GLUCOSE, BUN, CREATININE, CA)2022-08-22 08:55:20 Test Item Value Reference Range Interpretation Comments NA (test code = 140 mmol/L 135-145 6927302108) K (test code = 3.8 mmol/L 3.5-5.0 1513189087) CL (test code = 110 mmol/L 98-108 H 3523206015) CO2 TOTAL (test code = 21 mmol/L 23-31 L 6923356412) AGAP (test code = 9 2-16 3499989050) BUN (test code = 11 mg/dL 7-23 6993332217) GLUCOSE (test code = 58 mg/dL 70-110 L 9480530714) CREATININE (test code = 0.81 mg/dL 0.60-1.25 9182926205) CALCIUM (test code = 7.7 mg/dL 8.6-10.6 L 7171409680) eGFR (test code = 98.2 mL/min/1.73m2 1725926921) TERESA (test code = TERESA) Association of [...] tests). Lab Interpretation Abnormal (test code = 95974-7) [facility] NorthwestHEPATIC FUNCTION PANEL (22502) (ALB,T.PRO,BILI T,BU/BC,ALT,AST,ALK PHOS)2022-08-22 08:55:20 Test Item Value Reference Range Interpretation Comments TOTAL BILI (test code = 9999252215) 1.2 mg/dL 0.1-1.1 H BILI UNCON (test code = 7943399109) 0.3 mg/dL 0.1-1.1 BILI CONJ (test code = 0486078597) 0.0 mg/dL 0.0-0.3 T PROTEIN (test code = 1504105782) 7.3 g/dL 6.3-8.2 ALBUMIN (test code = 9622630155) 3.0 g/dL 3.5-5.0 L ALK PHOS (test code = 6937510813) 84 U/L 34-122 ALTv (test code = 1742-6) 31 U/L 5-50 AST(SGOT) (test code = 9746619256) 93 U/L 13-40 H Lab Interpretation (test code = Abnormal 12763-1) [facility] NorthwestABORH Confirmation (Lab Only)2022-08-22 08:27:46 Test Item Value Reference Range Interpretation Comments ABO & RH (test code O Positive Performe d at [facility] = 20) Laboratory Serv [facility] Blood [facility] [place] [address] s [id number] Free: [phone] A No. [id number] [facility] NorthwestType and Screen - ONCE [id number] 07:42:14 Test Item Value Reference Range Interpretation Comments ABO & RH (test code O POSITIVE Performe d at [facility] = 20) Laboratory [facility] Blood [facility] [place] [address] s 48[address]Sfzt Free: [phone] A No. [id number] IAT (test code = Negative Performed a t [facility] 1185) Laboratory [facility] Blood [facility] [address] [place] [address] s 49127Qvsz Free: [phone] A No. [id number] [facility] NorthwestFOLATE2023-01-30 07:00:54 Test Item Value Reference Range Interpretation Comments FOLATE SER (test code = 2904553770) 9.3 ng/mL 3.0-20.0 Lab Interpretation (test code = Normal 31758-0) [facility] NorthwestHCV [id number] 05:36:54 Test Item Value Reference Range Interpretation Comments HCV Ab (test code = Positive 71153-0) HCV 27.90 Semi-Quantitative (test code = 23980-4) APRI (test code = 1.750 7769346922) TERESA (test code = Positive for HCV antibody. TERESA) This specimen has been reflexed to qualitative PCR test and submitted to [facility]. ?A report will be issued by that laboratory. ?If any questions, contact the Clinical Chemistry Director hr operations advisor at [phone].APRI score < 0.5: Suggestive of little to no fibrosisAPRI score > 1.5: Suggestive of moderate to severe fibrosisAPRI score > 2.0: Highly suggestive of cirrhosis. [facility] NorthwestHEPATITIS B SURFACE [id number] 05:33:54 Test Item Value Reference Range Interpretation Comments HBsAB (test code = Negative 1144716573) HBsAb 0.00 mIU/mL Semi-Quantitative (test code = 6834574735) TERESA (test code = Interpretation: TERESA) ?Hepatitis B Surface Antibody ? Negative - Patient is considered to be not immune to infection with HBV. ? ? Positive - Anti-HBs detected at greater than or equal to 12 mIU/mL. ?Patient is considered to be immune to infection with HBV. ? [facility] NorthwestIRON [id number] 04:52:12 Test Item Value Reference Range Interpretation Comments IRON (test code = 5261878965) 20 ug/dL 50-160 L TIBC (test code = 9826719404) 486 ug/dL 250-410 H % FE SAT (test code = 6111877447) 4 % 20-50 L Lab Interpretation (test code = Abnormal 83577-3) [facility] NorthwestSALICYLATE2023-01-30 04:44:00 SALICYLATE<10mg/L08/21/2022 10:44 PM CSTUTMB LABORATORY SERVICESTherapeutic Range: ? Analgesic and Antipyretic Use ? 20-100 mg/L ? ? Anti- Inflammatory Use ? 100-250 mg/L Toxic Range: ? Greater than 300 mg/LUnUT [facility] HospitalACETAMINOPHEN 2022-08-22 04:43:55 Test Item Value Reference Range Interpretation Comments ACETAMINOP (test code = 10.0-30.0 L 3605305787) TERESA (test code = TERESA) Toxic: Greater than 200 ug/mL @ 4 hour post ingestion or greater than 50 ug/mL @ 12 hour post ingestion Lab Interpretation (test Abnormal code = 62883-2) [facility] NorthwestVITAMIN B12, [id number] 04:38:09 Test Item Value Reference Range Interpretation Comments VIT B12 (test code = 524 pg/mL 240-930 6135372875) TERESA (test code = TERESA) Biotin has been reported to cause a positive bias, interpret results relative to patient's use of biotin. Lab Interpretation (test Normal code = 60159-5) [facility] NorthwestHAV ANTIBODY (IGG AND IGM)2022-08-22 04:34:23 Test Item Value Reference Range Interpretation Comments HAV Total (test code Positive = 6190674474) HAVT 0.01 Semi-Quantitative (test code = 5429159168) TERESA (test code = TERESA) Indicates past or present infection with HAV or exposure to HAV due to vaccination. [facility] NorthwestFERRITIN [id number] 04:31:12 Test Item Value Reference Range Interpretation Comments FERRITIN (test code = 8.0 ng/mL 18.0-464.0 L 3479723021) TERESA (test code = TERESA) Biotin has been reported to cause a negative bias, interpret results relative to patient's use of biotin. Lab Interpretation (test Abnormal code = 51444-6) [facility] NorthwestHEPATITIS B CORE ANTIBODY [id number] 04:23:10 Test Item Value Reference Range Interpretation Comments HBCM 0.05 Semi-Quantitative (test code = 73855-7) TERESA (test code = Biotin has been reported TERESA) to cause a negative bias, interpret results relative to patient's use of biotin. [facility] NorthwestHECOMMONWE[facility]OSPITALTIS B SURFACE [id number] 04:18:09 Test Item Value Reference Range Interpretation Comments HBsAg Semi-Quantitative (test code = 0.05 Negative 5195-3) [facility] NorthwestACTIVATED PARTIAL THRMPLAS [id number] 04:17:29 Test Item Value Reference Range Interpretation Comments APTT Patient (test code 47 See_Comment H [Au tomated message] = 6183-2) The system [employer] generated this result transmitted ref erence range: 26 - 36 Seconds. The reference range was not used to int erpret this result as normal/abnormal . Lab Interpretation (test Abnormal code = 48859-2) [facility] NorthwestProthrombin Time / [id number] 04:17:29 Test Item Value Reference Range Interpretation Comments PROTIME PATIENT (test 21.3 See_Comment H [Auto mated message] code = 5964-2) The system [facility] generated this result transmitted ref erence range: 10.1 - 1 2.6 Seconds. The reference range was not used to int erpret this result as normal/abnormal . INR (test code = 6301-6) 1.9 Nor mal INR <1.1; Warfarin Therap eutic range 2.0 to 3. 0 or 2.5 to 3.5, dep ending upon the indica tions. Lab Interpretation (test Abnormal code = 21744-0) [facility] NorthwestETHANOL2023-01-30 04:10:05 Test Item Value Reference Range Interpretation Comments ALCOHOL (test code = 89 mg/dL 9923673956) TERESA (test code = Toxic Greater than or TERESA) equal to 80 mg/dL. NOTE: Whole blood values are approximately 10% to 15% lower than serum and plasma. [facility] NorthwestGLYCOSYLATED HEMOGLOBIN (A1C)2022-08-22 04:08:35 Test Item Value Reference Range Interpretation Comments HGB A1C (test code = 5.3 % 4.0-5.7 4548-4) TERESA (test code = TERESA) Reference RangesNormal: <5.7%Prediabetes: 5.7 - 6.4%Diabetes: > 6.5% Lab Interpretation (test Normal code = 85170-8) [facility] NorthwestTROPONIN [id number] 04:00:07 Test Item Value Reference Interpretation Comments Range TROPONIN I (test 0.005 ng/mL See_Comment [Automated code = 4057993894) message] The system which generated this result [...] biotin. Lab Interpretation Normal (test code = 66718-2) [facility] NorthwestLIPID PANEL (07916)(TOTAL CHOLESTEROL, TRIGLYCERIDES, HDL)2022-08-22 03:48:09 Test Item Value Reference Range Interpretation Comments CHOL (test code = 84 mg/dL 120-200 L 9395944757) HDL (test code = 23 mg/dL See_Comment L [Automated message] 8650269492) The system [employer] generated this result transmitted ref erence range: >=40. Th e reference range was not used to int erpret this result as normal/abnormal . HDLC RATIO (test code = 3.7 See_Comment [Au tomated message] 8355313675) The system [employer] generated this result transmitted ref erence range: <=5.0. T he reference range was not used to int erpret this result as normal/abnormal . TRIG (test code = 85 mg/dL 30-170 0177355276) LDL CHOL (test code = 44 mg/dL See_Comment [Auto mated message] 89937-6) The system [employer] generated this result transmitted ref erence range: <=160. T he reference range was not used to int erpret this result as normal/abnormal . VLDL (test code = 17 mg/dL 5-60 3935730875) Lab Interpretation (test Abnormal code = 85444-2) [facility] NorthwestBASI METABOLIC PANEL (NA, K, CL, CO2, GLUCOSE, BUN, CREATININE, CA)2022-08-22 03:47:29 Test Item Value Reference Range Interpretation Comments NA (test code = 141 mmol/L 135-145 7556614627) K (test code = 3.9 mmol/L 3.5-5.0 1242930596) CL (test code = 109 mmol/L 98-108 H 7427175020) CO2 TOTAL (test code = 24 mmol/L 23-31 7159452758) AGAP (test code = 8 2-16 9066092651) BUN (test code = 11 mg/dL 7-23 2820571680) GLUCOSE (test code = 98 mg/dL 70-110 5297514955) CREATININE (test code = 0.74 mg/dL 0.60-1.25 7882359209) CALCIUM (test code = 7.8 mg/dL 8.6-10.6 L 1218900032) eGFR (test code = 109.0 mL/min/1.73m2 8502233435) TERESA (test code = TERESA) Association of [...] tests). Lab Interpretation Abnormal (test code = 80266-2) [facility] NorthwestHEPATIC FUNCTION PANEL (61505) (ALB,T.PRO,BILI T,BU/BC,ALT,AST,ALK PHOS)2022-08-22 03:47:29 Test Item Value Reference Range Interpretation Comments TOTAL BILI (test code = 9335710848) 1.1 mg/dL 0.1-1.1 BILI UNCON (test code = 8523209769) 0.3 mg/dL 0.1-1.1 BILI CONJ (test code = 6131875991) 0.0 mg/dL 0.0-0.3 T PROTEIN (test code = 4410669143) 7.3 g/dL 6.3-8.2 ALBUMIN (test code = 5359784373) 3.0 g/dL 3.5-5.0 L ALK PHOS (test code = 2015821110) 83 U/L 34-122 ALTv (test code = 1742-6) 31 U/L 5-50 AST(SGOT) (test code = 8057933728) 77 U/L 13-40 H Lab Interpretation (test code = Abnormal 82361-3) [facility] NorthwestMAGNESIUM2023-01-30 03:47:29 Test Item Value Reference Range Interpretation Comments MAGNESIUM (test code = 1938950339) 1.5 mg/dL 1.7-2.4 L Lab Interpretation (test code = Abnormal 91987-5) [facility] WITH [id number] 03:36:26 Test Item Value Reference Range Interpretation Comments WBC (test code = 6.22 See_Comment [Automated 2490-2) message] The sy stem which generated this result transmitted reference range : 4.20 - 10.70 10*3/?L. The reference range was not used to interpret this result as normal/abnormal . RBC (test code = 2.67 See_Comment L [Automated 268-8) message] The sy stem which generated this [...] (test code = 53.3 fL 38.5-51.6 H 18372-8) RDW-CV (test code = 17.7 % 12.1-15.4 H 788-0) PLT (test code = 110 See_Comment L [Automated 777-3) message] The sy stem which generated this result transmitted reference range : 150 - 328 10*3/ ?L. The reference r geri was not used to interpret this result as normal/abnormal . MPV (test code = 10.7 fL 9.8-13.0 34971-8) NRBC/100 WBC (test 0.3 See_Comment [Automat ed code = 5533964372) message] The system which generated this result transmitted reference range : 0.0 - 10.0 /100 WBCs. The refer ence range was not u sed to interpret th is result as normal/abnormal . NRBC x10^3 (test code 0.02 See_Comment [Auto mated = 2277369990) message] The s ystem which generated this result transmitted reference range : 10*3/?L. The reference range was not used to interpret this result as normal/abnormal . GRAN MAT (NEUT) % 52.5 % (test code = 770-8) IMM GRAN % (test code 0.60 % = 3601158925) LYMPH % (test code = 25.6 % 736-9) MONO % (test code = 18.0 % 5905-5) EOS % (test code = 1.0 % 713-8) BASO % (test code = 2.3 % 706-2) GRAN MAT x10^3(ANC) 3.27 10*3/uL 1.99-6.95 (test code = 0477657995) IMM GRAN x10^3 (test 0.04 10*3/uL 0.00-0.06 code = 8181499450) LYMPH x10^3 (test code 1.59 10*3/uL 1.09-3.23 = 731-0) MONO x10^3 (test code 1.12 10*3/uL 0.36-1.02 H = 742-7) EOS x10^3 (test code = 0.06 10*3/uL 0.06-0.53 711-2) BASO x10^3 (test code 0.14 10*3/uL 0.01-0.09 H = 704-7) Lab Interpretation Abnormal (test code = 15142-0) [facility] NorthwestXR ANKLE RIGHT COMPLETE 3 VIEWS *[id number] 22:56:41[facility] : 1965 Sex: MLocation [...] by: Kate Stover MD 06/08/2022 10:[address] [employer]PA[employer] W orkstation: [id number] LEG RIGHT LOWER/TIB-FIB AP&LAT *OW*2022-06-08 22:56:41[facility]ENTERName[facility] : 1965 Sex: MLocation [...] by: Kate Stover MD 06/08/2022 10:[address] [employer] REPA[employer] W [employer]: [phone] (INCLUDES AUTOMATED DIFFERENTIAL) *2022-06-08 22:51:00 Test Item [...] 0.0-10.0 H RAD, CHEST, 1 VIEW, NON [id number] 13:32:00Reason for exam:- >pneumoniaShould this be performed at the bedside?->Yes [facility] 1965 Sex: MFINAL REPORT Exam: RAD, CHEST, 1 VIEW, NON DEPTDate: 12/28/2021 1:23 PM Indication:pneumoniaComparison: None FINDINGS: Lines/Tubes/Devices: Overlying EKG leads. Lungs/pleura:Lungs are well inflated. Mildly prominent central vasculature. Retrocardiac airspace opacity. No pleural effusion. Nopneumothorax. Heart/Mediastinum:The cardiomediastinal silhouette is normal in size and contour. Bones/Soft Tissues: No acute osseous abnormality. Upper abdomen: Unremarkable. IMPRESSION:Mildly prominent central vasculature may represent component of congestion. Retrocardiac airspace opacity, likely atelectasis. Consider infectious process in the appropriate clinical setting. Signed: Stephen Messer MDReport Verified Date/Time: 12/28/2021 13:32:10 Reading Location: [facility] Radiology Reading Room (MANUAL DIFFERENTIAL)2021-12-28 05:33:48 Test [...] few 965) CBC W/PLT COUNT & AUTO [id number] 05:33:47 Test Item Value Reference Range Interpretation [...] (BEAKER) (test code = 2801) COMPREHENSIVE METABOLIC [id number] 05:32:30 Test Item Value Reference Range Interpretation [...] S NOT APPLICABLE FOR DIALYSIS PATIEN TS. Manager Project Management ID - [id number] ID - [id number] ID - YHBKDFFEQ760Kvbpdpcl ID - RGUJVFMTZ439Xazlurch ID - OWOTPSCMM602Ivkrfmue ID - MDSCTBJVF239Wocjrqjd ID - NPCSVHHDX242Olncpbxm ID - FOWOLJQWB529Kwiiiyaj ID - YFSGKTBKA745Xemteelw ID - GRRSACCNW678Rntjglvj ID - OWPJIWWYN410Dxfprydv ID - ARQVFLBRZ812Cyzwiith ID - LQWKMZBEJ789Klccstvj ID - VGVGFPDOS256Mexlqcst ID - UUKTZKCZE322Mltmkdry ID -AEOTASRHF190ZJJOPSDVM7272-54-32 05:30:12 Test Item Value Reference Range Interpretation Comments MAGNESIUM (BEAKER) (test code = 1.2 mg/dL 1.5-3.0 L 627) Manager Project Management ID - [id number] ID - FYDTFCXLP597Duhgksgh ID - RICXXZGRX901Xuhdbpjp ID - AREHFEFCJ924YJIMG METABOLIC [id number] 05:44:01 Test Item Value Reference Range Interpretation [...] S NOT APPLICABLE FOR DIALYSIS PATIEN TS. Manager Project Management ID - [id number] ID - VZMD43Ckzuvkum ID - KXSE99Rjgestkz ID - QIAO14Ecxkwqig ID - AKWF56Yhtpjfux ID - PJSB01Huswubtq ID - JRNR24Vzxmoboa ID - QOFT68Dznerose ID - EWKR09Efprmixg ID - AEJO67Zfjseyfk ID - UVWK39Mrxlfvvu ID - GUMS73Rpyjvsip ID - TMCY45VRP (HEMOGRAM ONLY)2021-12-27 05:26:40 Test Item Value Reference [...] (BEAKER) (test code = 413) U/S, ABDOMINAL, [id number] 03:53:00Abdomen limited area? Add comment if clarification is needed.->LiverReason for exam:->Liver cirrhosis [facility] CENTERName: [facility] : 1965 Sex: MFINAL [...] MDReport Verified Date/Time: 12/27/2021 03:53:38 BASIC METABOLIC [id number] 05:41:36 Test Item Value Reference Range Interpretation [...] S NOT APPLICABLE FOR DIALYSIS PATIEN TS. Manager Project Management ID - [id number] ID - VLEICDODL491Uefvzuwt ID - TPOSQOERB848Juixxqru ID - EWJPNUQMG942Cflqzqsj ID - JPZCOVTGW285Vqjoelea ID - RXKHSOYJQ940Llaikgum ID - WSCGYYOLC035Thxfexfs ID - MZLKJYAAC352Gwqxjgxv ID - QPTFNBBYG791Dlzdtcqx ID - WMAXCZZMS328UGADLTVZR0986-42-41 05:36:42 Test Item Value Reference Range Interpretation Comments MAGNESIUM (BEAKER) (test code = 1.3 mg/dL 1.5-3.0 L 627) Manager Project Management ID - [id number] ID - [id number] ID - SRRCWMVQV978Gnhyppbd ID - [id number] (HEMOGRAM ONLY)2021-12-26 05:31:48 Test Item Value Reference [...] (BEAKER) (test code = 413) BASIC METABOLIC [id number] 11:36:16 Test Item Value Reference Range Interpretation [...] S NOT APPLICABLE FOR DIALYSIS PATIEN TS. Manager Project Management ID - LITOOperator ID - LITOOperator ID [...] (BEAKER) (test code = 413) BASIC METABOLIC [id number] 05:49:14 Test Item Value Reference Range Interpretation [...] S NOT APPLICABLE FOR DIALYSIS PATIEN TS. Manager Project Management ID - obsvuourf706Psfbpzff ID - ptgldjyic980Uafqduol ID - vdrppydkb895Hzxdorve ID - fshztxtpw621Dqehmgba ID - cncpbgspc210Rqkavxsu ID - kzwuemvkv955Atujtymm ID - lphbswaru494Uxdfqdmx ID - oigudvttw084Ehjbbzxp ID - oimmqfeix562Yitmouai ID - sdynelmai394Rfnihonm ID - lwijpfdox115Wcoqiebd ID - mucncbhda401Asjvhptv ID - fzmxqoslb168FQMJX METABOLIC [id number] 05:59:25 Test Item Value Reference Range Interpretation [...] S NOT APPLICABLE FOR DIALYSIS PATIEN TS. Manager Project Management ID - TUSQ27Zutgwyis ID - SGHS25Onyhtend ID - YSFY08Jdbjlbqz ID - OENW51Vzbaswyx ID - NCDH34Qygbzctu ID - BYGB25Ldusdeny ID - MKMB29Vjqmjcrw ID - XAEW91Okehsetq ID - GZCQ21Yqiampqy ID - YRUM64KEXMSWQLI8767-53-37 05:52:55 Test Item Value Reference Range Interpretation Comments MAGNESIUM (BEAKER) (test code = 1.3 mg/dL 1.5-3.0 L 627) Manager Project Management ID - [id number] ID - JAIT40Aamqinfp ID - WQSA28Ysldzgym ID - ZNMP04 BASIC METABOLIC [id number] 06:46:33 Test Item Value Reference Range Interpretation [...] S NOT APPLICABLE FOR DIALYSIS PATIEN TS. Manager Project Management ID - LITOOperator ID - LITOOperator ID - LITOOperator ID - LITOOperator ID - LITOOperator ID - LITOOperator ID - LITOOperator ID - LITOOperator ID - LITOOperator ID - [id number] 06:45:09 Test Item Value Reference Range Interpretation Comments MAGNESIUM (BEAKER) (test code = 1.7 mg/dL 1.5-3.0 627) Manager Project Management ID - LITOOperator ID - LITOOperator ID [...] 0-0 (test code = 413) BASIC METABOLIC [id number] 06:42:24 Test Item Value Reference Range Interpretation [...] S NOT APPLICABLE FOR DIALYSIS PATIEN TS. Manager Project Management ID - [id number] ID - SOSF64Gnfdspyl ID - ZPAG44Lkzmhais ID - GZQW19Xsrjwlyg ID - IXLU68Ponnjjfj ID - IIMJ21Kxjstycb ID - ADZU84Drnaugtn ID - DIBI35Ajifbeyv ID - IIIJ45Hjedmapc ID - [id number] 06:39:52 Test Item Value Reference Range Interpretation Comments MAGNESIUM (BEAKER) (test code = 1.1 mg/dL 1.5-3.0 L 627) Manager Project Management ID - XQUE75Yoyjqcke ID - YRFQ72Mwglsycl ID - GKDG22Wcoyieaz ID - [id number] CBC (HEMOGRAM ONLY)2021-12-21 06:26:23 [...] 0-0 (test code = 413) COMPREHENSIVE METABOLIC [id number] 07:20:00 Test Item Value Reference Range Interpretation [...] S NOT APPLICABLE FOR DIALYSIS PATIEN TS. Manager Project Management ID - LITOOperator ID - LITOOperator ID [...] (BEAKER) (test code = 2801) Prepare Leuko-Red EFO2912-07-05 23:54:00 Test Item Value Reference Range Interpretation Comments CROSSMATCH (test code = 2264) COMPATIBLE Unit ABO (test code = O Pos 3056532) UNIT NUMBER (test code = [id number] 934-0) Status (test code = 5412974) [facility]AL[facility]ALT Blood Bank Product (test code RED BLOOD CELLS = 2263) PRODUCT CODE (test code = H4335N52 933-2) [facility] [id number] 23:54:00 Test Item Value Reference Range Interpretation Comments CROSSMATCH (test code = 2264) COMPATIBLE Unit ABO (test code = O Pos 5192889) UNIT NUMBER (test code = [id number] 934-0) Status (test code = 9907247) TX_TIMEINCHART Blood Bank Product (test code RED BLOOD CELLS = 2263) PRODUCT CODE (test code = O9044L40 933-2) [facility] [id number] 23:54:00 Test Item Value Reference Range Interpretation Comments CROSSMATCH (test code = 2264) COMPATIBLE Unit ABO (test code = O Pos 4011836) UNIT NUMBER (test code = [id number] 934-0) Status (test code = 0664473) TX_TIMEINCHART Blood Bank Product (test code RED BLOOD CELLS = 2263) PRODUCT CODE (test code = S0955O31 933-2) [facility] [id number] 23:54:00 Test Item Value Reference Range Interpretation Comments CROSSMATCH (test code = 2264) COMPATIBLE Unit ABO (test code = O Pos 7212663) UNIT NUMBER (test code = [id number] 934-0) Status (test code = 8607753) TX_TIMEINCHART Blood Bank Product (test code RED BLOOD CELLS = 2263) PRODUCT CODE (test code = S7112G38 933-2) [facility] [id number] 23:54:00 Test Item Value Reference Range Interpretation Comments CROSSMATCH (test code = 2264) COMPATIBLE Unit ABO (test code = O Pos 4239466) UNIT NUMBER (test code = [id number] 934-0) Status (test code = 1202089) [facility]INCVAL[facility]ITALT Blood Bank Product (test code RED BLOOD CELLS = 2263) PRODUCT CODE (test code = T8008L01 933-2) [facility] [id number] 23:54:00 Test Item Value Reference Range Interpretation Comments CROSSMATCH (test code = 2264) COMPATIBLE Unit ABO (test code = O Pos 9419315) UNIT NUMBER (test code = [id number] 934-0) Status (test code = 9578555) TX_TIMEINCHART Blood Bank Product (test code RED BLOOD CELLS = 2263) PRODUCT CODE (test code = I8230E21 933-2) [facility] Leuk[facility]-Red [id number] 23:54:00 Test Item Value Reference Range Interpretation Comments CROSSMATCH (test code = 2264) COMPATIBLE Unit ABO (test code = O Pos 4200155) UNIT NUMBER (test code = [id number] 934-0) Status (test code = 4928329) TX_TIMEINCHART Blood Bank Product (test code RED BLOOD CELLS = 2263) PRODUCT CODE (test code = F1881U98 933-2) [facility] [id number] 23:54:00 Test Item Value Reference Range Interpretation Comments CROSSMATCH (test code = 2264) COMPATIBLE Unit ABO (test code = O Pos 9156888) UNIT NUMBER (test code = [id number] 934-0) Status (test code = 9472043) TX_TIMEINCHART Blood Bank Product (test code RED BLOOD CELLS = 2263) PRODUCT CODE (test code = H2676G44 933-2) [facility]COMPREHENSIVE METABOLIC [id number] 06:55:53 Test Item Value Reference Range Interpretation [...] S NOT APPLICABLE FOR DIALYSIS PATIEN TS. Manager Project Management ID - WTAUDKGGI059Xcdljvfk ID - PCVHSXQOG270Alzqyxcq ID - XRXPRNHJA187Vbfaiusw ID - CPRGOXRTO060Ehchkmjp ID - MYEGUXEQS040Yjexjgyr ID - RQECHKRYB980Wfbgeesu ID - LRDQDBEPM544Fkpkbfth ID - GTKEGAWLE977Lsoucxfp ID - LOAFQDXUQ703Icuonxrf ID - YYAXPJNEF887Jwxfbztz ID - RAYZUKNXN133Yfjkrpdt ID - EAZRPZMWU382Zpicdczk ID - FLWPYGXAQ691Erxsmayj ID - OZVXRNFJR190Gdbsebny ID - PDTNUOTKD395Ckexbtoy ID -NKEPOBMRO090Sdsukxpl ID - XCXXLCJYG481Adicyjbf ID - [id number] ID - YVZNATEWX450Hiuuwdls slightly ictericCBC W/PLT COUNT & AUTO [id number] 06:34:13 Test Item Value Reference Range Interpretation [...] (BEAKER) (test code = 2801) COMPREHENSIVE METABOLIC [id number] 07:01:24 Test Item Value Reference Range Interpretation [...] S NOT APPLICABLE FOR DIALYSIS PATIEN TS. Manager Project Management ID - LITOOperator ID - LITOOperator ID - LITOOperator ID - LITOOperator ID - LITOOperator ID - LITOOperator ID - LITOOperator ID - LITOOperator ID - LITOOperator ID - LITOHEPATIC FUNCTION [id number] 07:01:15 Test Item Value Reference Range Interpretation [...] (test code = 20 U/L 5-50 347) Manager Project Management ID - LITOOperator ID - LITOOperator ID - LITOOperator ID - LITOOperator ID - LITOOperator ID - LITOOperator ID - LITOLIPID [id number] 07:01:14 Test Item Value Reference Range Interpretation [...] Borderline 130-159 High 160-189 Very High >=190 Manager Project Management ID - LITOOperator ID - LITOOperator ID - LITOOperator ID - LITOOperator ID - LITOOperator ID - LITOPROTHROMBIN TIME/[id number] 06:59:56 Test Item Value Reference Range Interpretation Comments PROTIME (BEAKER) 16.7 seconds 9.3-12.0 H Final Infor mation (test code = 759) (Auto Outp ut) INR (BEAKER) (test 1.57 See_Comment Final Inf ormation code = 370) (Auto Output) [Automated mess age] The system Zib[employer] generated this result transmitted ref erence range: <=5.90. The reference range was not used to int erpret this result as normal/abnormal . RECOMMENDED COUMADIN/WARFARIN INR THERAPY RANGESSTANDARD DOSE: 2.0 - 3.0 Includes: PROPHYLAXIS for venous thrombosis, systemic embolization; TREATMENT for venous thrombosis and/or pulmonary embolus.HIGH RISK: Target INR is 2.5-3.5 for patients with mechanical heart valves.CBC W/PLT COUNT & AUTO [id number] 06:56:13 Test Item Value Reference Range Interpretation [...] 0-0 PERCENT (BEAKER) (test code = 2801) [id number] 06:47:47 Test Item Value Reference Range Interpretation Comments AMMONIA (BEAKER) (test code = 348) 66 mol/L 17-80 Manager Project Management ID - LITOOperator ID - LITOOperator ID - LITOOperator ID - LITOXR FEMUR RIGHT AP & LAT *OW*2019-03-27 10:20:15Exam: X-ray right femur 2 viewsHISTORY: Pain.Location: [id number]:No fracture or dislocation is noted. No osseous lesions seen.IMPRESSION:1. Unremarkable exam. Notes Date/Time Note Provider Source 2022-12-17 07:50:59-00:00 RORY JACKSON [facility] PROGRESS NOTE JIGNA LEI FACILITY: [facility] Billing #: [id number] Room: [address] [place] [address] MR #: [id number] : 1965 PHYSICIAN: Rory Jackson MD ADMISSION DATE: 12/14/2022 DATE: 12/17/2022 SUBJECTIVE: The patient is in restraints, accomp anied by one-to-one sitter. He is agitated, anxious, and trying to get out of bed. His eyes are awake and he does respo nd to some stimuli. No overt signs of bleeding present. PHYSICAL EXAMINATION: VITAL SIGNS: Temperature 97 degrees, pulse 79, r espiratory rate 18, blood pressure 156/81. GENERAL: The patient is agitated, anxious and tr emulous. He is not oriented. HEENT: Sclerae anicteric, conjunctivae pale, beatriz pharynx clear, mucous membranes dry. CARDIOVASCULAR: Tachycardic without murmurs, gal lops, or rubs. LUNGS: Clear to auscultation bilaterally. ABDOMEN: Soft, obese, nontender, nondistended. N o obvious fluid wave. Bowel sounds are normal. EXTREMITIES: No cyanosis, clubbing, or edema. NECK: No thyromegaly, lymphadenopathy, or jugula r venous distention. LABS: No new labs today. IMPRESSION: 1. Alcohol withdrawal. 2. Alcoholic cirrhosis arthritis. 3. GI bleed. 4. Anemia, secondary to GI bleed. RECOMMENDATIONS: Continue treatment of alcohol w ithdrawal per [facility] protocol. At this point, I am going to disc ontinue Protonix drip as well and just place patient on twice daily dosing as he has not had any bleeding since he h as been here in the hospital. He may need NG tube for feeds if h is withdrawal does not improve soon. He would benefit from an upper endoscopy at some point, although at this time w ithout any active bleeding, it is imperative that we 1st tr eat his withdrawal and then we will proceed accordingly. MATIV/MODL /[id number] Electronically signed by: RORY JACKSON at 20 13-12-26 07:19:53.000 2022-12-16 21:49:53-00:00 RORY JACKSON [facility] CONSULTATION JIGNA LEI FACILITY: [facility] Billing #: [id number] Room: [address] [place] [address] MR #: [id number] : 1965 DATE OF ADMISSION: 12/14/2022 DATE OF CONSULTATION: REQUESTING PHYSICIAN: Kay Alberto MD DIVISION TRAFFIC SUPERINTENDENT: Rory Jackson MD Gastroenterology Consultation Note REASON FOR CONSULTATION: Questionable GI bleed. HISTORY OF PRESENT ILLNESS: This is a 57-year-ol d male with history of alcohol abuse as well as history of g astric paresis who presents to [facility] 2 days ago with lower GI bleed and altered mental status. The chip trevino is currently unable to give any history due to alco hol withdrawal. However, it appears that he was actually admitt ed 2 years ago after being transferred from outside hospital [facility] concerns for GI bleed. Initially, another painter set was consulted, but apparently he is out of town and therefore I was consulted on this patient about 2 hours ago. He has been h ere for about 48 hours without any further bleeding reported. He is currently getting treatment for alcohol withdraw al per [facility] protocol. His hemoglobin was 6.9 and he has been transfused 2 units of packed rbc's and his hemoglobin is curr ently 9. He does have a history of upper GI bleed secondary to gastric varices, according to documentation from 2021. N o other history is available at this time. PAST MEDICAL HISTORY: 1. Alcohol abuse. 2. History of upper GI bleed. 3. History of gastric varices. PAST SURGICAL HISTORY: Upper endoscopy. ALLERGIES: NONE. SOCIAL HISTORY: The patient does smoke cigarette s. He has been a heavy drinker in the past and also smokes marijuana. FAMILY HISTORY: Negative for colon cancer, liver disease, inflammatory bowel disease. MEDICATIONS: See MAR. REVIEW OF SYSTEMS: Not obtainable. PHYSICAL EXAMINATION: VITAL SIGNS: Temperature 97 degrees, pulse 70, r espiratory rate 18, blood pressure 155/82, O2 saturation 97 %. GENERAL: The patient is somewhat tremulous. He i s awake, alert, somewhat anxious. HEENT: Sclerae anicteric, conjunctivae pale, beatriz pharynx clear. CARDIOVASCULAR: Tachycardic without murmur, gall ops, or rubs. LUNGS: Clear to auscultation bilaterally. ABDOMEN: Soft, nontender, nondistended. Bowel so unds are normal. EXTREMITIES: No cyanosis, clubbing, or edema. LABORATORY DATA: AST 87, ALT 28, albumin 2.9, to dawson bilirubin 2.2. White count 7.8, hemoglobin 9, platelets 72 . INR 1.57. IMAGING: Abdominal ultrasound - gallbladder slud ge and nodular liver surface. No focal lesions of the liver. IMPRESSION: 1. Alcoholic cirrhosis. 2. Alcoholic withdrawal. 3. Questionable gastrointestinal bleed. 4. History of gastric varices. RECOMMENDATION: The patient has not had any blee ding here in the hospital over the last 2 days and hemoglobin is stable after blood transfusion. At this time, we will c ontinue treatment of alcohol withdrawal per NISSA marino. Continue monitoring hemoglobin daily. He obviously does n ot have a variceal bleed and therefore I am going to disco ntinue the Sandostatin and continue Protonix for now. If at any point he experiences any active GI bleeding, he will proc eed with the emergent EGD. Until then, we will wait for the w ithdrawal symptoms to resolve prior to proceeding with EGD . Alcohol abstinence recommended. He needs to join a forma l rehabilitation program. He is not a candidate fo r liver transplant at this time. ROLAND/LILAL /[id number] Electronically signed by: RORY JACKSON at 20 13-12-25 20:43:36.000 2021-12-27 14:14:33-00:00 ISIAH CRORAL [facility] PROGRESS NOTE JIGNA LEI FACILITY: [facility] Billing #: [id number] Room: [address] [place] [address] MR #: [id number] : 1965 PHYSICIAN: Kay Alberto MD ADMISSION [...] discharge this patien t home tomorrow. SSA/MODL /[id number] 2021-12-18 12:33:57-00:00 CONNIE BRYANT [facility] CONSULTATION JIGNA LEI FACILITY: [facility] Billing #: [id number] Room: [address] [place] [address] MR #: [id number] : 1965 DATE OF ADMISSION: 12/18/2021 DATE OF CONSULTATION: REQUESTING PHYSICIAN: DIVISION TRAFFIC SUPERINTENDENT: Connie Bryant MD Gastrology Consultation Note REASON [...] go ahead and advance the diet and li oleg discharge as no endoscopic workup is recommended at this t [facility], and followup can be arranged as an outpatient. He figueroa dejesus will need another unit of blood prior to discharge. Thank you for the courtesy of your referral. RAMU/TRAVIS /[id number]
[2023-01-15 21:31] LABS: Absolute Lymphocytes (CBC) 1.5 K/uL (0.7-4.9); Hematocrit 25.1 % (39.6-49.0); Lymphocytes % 27.6 % (15.3-44.8); MCV 90.8 fL (80-100); RBC Red Blood Cell Count 2.76 M/uL (4.33-5.43)
[2023-01-15 21:53] LABS: Protime INR 1.26
--- NOTE | 2023-01-15 21:59 | RAD REPORT ---
EXAM DESCRIPTION: RAD - Chest Single View - 01/15/2023 9:54 pm CLINICAL HISTORY: CHEST PAIN Chest pain. COMPARISON: <Comparisons> FINDINGS: Portable technique limits examination quality. The lungs are grossly clear. The heart is mildly enlarged in size. No displaced fractures. IMPRESSION: No acute intrathoracic process suspected.
[2023-01-15 22:04] LABS: Albumin 2.7 g/dL (3.4-5.0); Bilirubin Direct 0.5 mg/dL (0-0.2); Bilirubin Indirect, Calculated 0.2 mg/dL (0.2-0.8); Bilirubin Total 0.7 mg/dL (0.2-1.0); Magnesium 1.8 mg/dL (1.6-2.4); Potassium 3.9 mEq/L (3.5-5.1); Protein, Total 7.8 g/dL (6.4-8.2); Troponin High Sensitivity 9.3 pg/mL (<58.9)
[2023-01-15 22:08] LABS: Blood Morphology Comment NOT SEEN (NOT SEEN); Platelet Estimate DECR; White Blood Cell Scan OK (OK)
--- NOTE | 2023-01-15 22:22 | ER ---
Nurse's Notes [facility] Name: Fan Lei Jr Age: 57 yrs Sex: Male : 1965 Arrival Date: 01/15/2023 Time: 20:58 Bed 5 Private MD: Diagnosis: Chest pain, unspecified;Pedal Edema;Alcohol abuse Presentation: 01/15 21:07 Chief complaint: EMS states: Pt reports chest pain on the left side on the chest upon jb4 inhalation. Reports falling and fracturing his ribs on the left side 1 month ago. Current pain has been present for 1 week. Coronavirus screen: At this time, the client does not indicate any symptoms associated with coronavirus-19. Ebola Screen: No symptoms or risks identified at this time. Initial Sepsis Screen: Does the patient meet any 2 criteria? No. Patient's initial sepsis screen is negative. Does the patient have a suspected source of infection? No. Patient's initial sepsis screen is negative. Risk Assessment: Do you want to hurt yourself or someone else? Patient reports no desire to harm self or others. Onset of symptoms was January 08, 2023. Transition of care: patient was not received from another setting of care. 21:07 Method Of Arrival: EMS: [facility] jb4 21:07 Acuity: KITA 3 jb4 Historical: - Allergies: 21:10 No Known Allergies; jb4 - Home Meds: 21:10 None [Active]; jb4 - PMHx: 21:10 Alcohol dependence; LIVER PROBLEMS; jb4 - PSHx: 21:10 None; jb4 Screenin:11 [facility] ED Fall Risk Assessment (Adult) History of falling in the last 3 months, jb4 including since admission No falls in past 3 months (0 pts) Confusion or Disorientation No (0 pts) Score/Fall Risk Level 0 - 2 = Low Risk. Abuse screen: Denies injuries from another. Nutritional screening: No deficits noted. Tuberculosis screening: No symptoms or risk factors identified. Assessment: 21:11 General: Appears in no apparent distress. uncomfortable, Behavior is agitated, anxious, jb4 Smells of alcohol. Pain: Complains of pain in left breast Pain does not radiate. Pain currently is 10 out of 10 on a pain scale. Pain began 1 week ago. Neuro: Level of Consciousness is awake, alert, obeys commands, Oriented to person, place, time, situation. Cardiovascular: Patient's skin is warm and dry. Respiratory: Airway is patent Respiratory effort is even, unlabored, Respiratory pattern is regular, symmetrical. GI: No signs and/or symptoms were reported involving the gastrointestinal system. : No signs and/or symptoms were reported regarding the genitourinary system. EENT: Derm: Skin is intact, Skin is pink, warm \T\ dry. Musculoskeletal: Circulation, motion, and sensation intact. Range of motion: intact in all extremities, Swelling present in right leg and left leg. 21:59 Reassessment: Patient appears in no apparent distress at this time. Patient and/or jb4 family updated on plan of care and expected duration. Pain level reassessed. Patient is alert, oriented x 3, equal unlabored respirations, skin warm/dry/pink. 22:52 Reassessment: Patient appears in no apparent distress at this time. Patient and/or jb4 family updated on plan of care and expected duration. Pain level reassessed. Patient is alert, oriented x 3, equal unlabored respirations, skin warm/dry/pink. Pt ambulated to Nurses station with steady gait, attempted to call his sister, handed the phone to medical staff, staff attempted to ask the pt's sister to come get him, she responded she is unable to. pt discharged to [facility] to wait for ride home. Vital Signs: 21:07 BP 133 / 88; Pulse 91; Resp 14; Temp 98.5(O); Pulse Ox 94% on R/A; Weight 68.04 kg (R); jb4 Height 5 ft. 1 in. (R); Pain 10/10; 21:45 BP 126 / 73; Pulse 92; Resp 19; Pulse Ox 98% ; jb4 22:15 BP 119 / 78; Pulse 93; Resp 19; Pulse Ox 97% on R/A; jb4 21:07 Body Mass Index 28.34 (68.04 kg, 154.94 cm) jb4 21:07 Pain Scale: Adult jb4 ED Course: 20:59 Patient arrived in ED. rv1 21:00 Agustín Todd DO is Attending Physician. ms3 21:07 Len Johnson, RN is Primary Nurse. jb4 21:10 Triage completed. jb4 21:10 Arm band placed on right wrist. jb4 21:11 Patient has correct armband on for positive identification. Bed in low position. Call jb4 light in reach. Side rails up X 1. Client placed on continuous cardiac and pulse oximetry monitoring. NIBP monitoring applied. appliance service representative on. 21:21 XRAY Chest (1 view) Sent. rv 21:21 Basic Metabolic Panel Sent. rv 21:21 Magnesium Sent. rv 21:22 NT PRO-BNP Sent. rv 21:22 PT-INR Sent. rv 21:22 Troponin HS Sent. rv 21:45 No provider procedures requiring assistance completed. IV discontinued, intact, jb4 bleeding controlled, No redness/swelling at site. Pressure dressing applied. 21:55 XRAY Chest (1 view) In Process Unspecified. EDMS 22:19 Nehemias Enriquez DO is Referral Physician. ms3 22:19 Donnell Giraldo MD is Referral Physician. ms3 Administered Medications: No medications were administered Medication: 21:11 VIS not applicable for this client. jb4 Outcome: 22:21 Discharge ordered by . ms3 22:55 Discharged to [facility] to wait for ride home jb4 22:55 Condition: stable 22:55 Discharge instructions given to patient, Instructed on discharge instructions, follow up and referral plans. Demonstrated understanding of instructions, follow-up care. 22:55 Patient left the ED. jb4 Signatures: Dispatcher [employer] EDLen Henderson, RN KYRA jb4 Suman Perez RN RN rv Agustín Todd DO DO ms3 Radha Liriano rv1 Corrections: (The following items were deleted from the chart) 21:11 21:07 Onset of symptoms was January 15, 2023 jb4 jb4 21:22 21:21 CBC+H.LAB.BRZ drawn and sent. rv EDMS 22:54 21:59 BP 126 / 73; Pulse 92bpm; Resp 19bpm; Pulse Ox 98%; jb4 jb4
--- NOTE | 2023-01-15 22:22 | EDPHYS ---
Physician Documentation [facility] Name: Fan Lei Jr Age: 57 yrs Sex: Male : 1965 Arrival Date: 01/15/2023 Time: 20:58 Bed 5 Private MD: ED Physician Agustín Todd HPI: 01/15 21:30 This 57 yrs old Male presents to ER via EMS with complaints of Chest pain. ms3 21:30 57-year-old male with past medical history of alcohol dependence, liver problems ms3 presents for chest pain that began 1 week prior to arrival. EMS notes patient has had falls and was diagnosed with a left rib fracture. EMS notes patient does use alcohol daily and drink 3 quarter-sized beers tonight. EMS also notes patient has stopped taking his Lasix. Patient states he is having moderate left-sided chest pain. Patient denies shortness of breath, nausea, vomiting, diaphoresis.. Historical: - Allergies: 21:10 No Known Allergies; jb4 - Home Meds: 21:10 None [Active]; jb4 - PMHx: 21:10 Alcohol dependence; LIVER PROBLEMS; jb4 - PSHx: 21:10 None; jb4 ROS: 21:30 Constitutional: Negative for fever, and chills. Neck: Negative for injury, pain, and ms3 swelling. 21:30 Respiratory: Negative for shortness of breath, cough, wheezing, and pleuritic chest pain, Abdomen/GI: Negative for abdominal pain, nausea, vomiting, diarrhea, and constipation, MS/Extremity: Negative for injury and deformity, Skin: Negative for injury, rash, and discoloration. 21:30 Cardiovascular: Positive for chest pain. 21:30 All other systems are negative. Exam: 21:30 Constitutional: This is a well developed, well nourished patient who is awake, alert, ms3 and in no acute distress. Head/Face: Normocephalic, atraumatic. Neck: Trachea midline, no cervical lymphadenopathy. Supple, full range of motion without nuchal rigidity, or vertebral point tenderness. No Meningismus. Chest/axilla: Normal chest wall appearance and motion. Nontender with no deformity. Cardiovascular: Regular rate and rhythm with a normal S1 and S2. No gallops, murmurs, or rubs. Normal PMI, no JVD. No pulse deficits. 21:55 ECG was reviewed by the Attending Physician. ms3 Vital Signs: 21:07 BP 133 / 88; Pulse 91; Resp 14; Temp 98.5(O); Pulse Ox 94% on R/A; Weight 68.04 kg (R); jb4 Height 5 ft. 1 in. (R); Pain 10/10; 21:45 BP 126 / 73; Pulse 92; Resp 19; Pulse Ox 98% ; jb4 22:15 BP 119 / 78; Pulse 93; Resp 19; Pulse Ox 97% on R/A; jb4 21:07 Body Mass Index 28.34 (68.04 kg, 154.94 cm) jb4 21:07 Pain Scale: Adult jb4 MDM: 21:04 Patient medically screened. ms3 21:50 Differential diagnosis: abnormal EKG, acute myocardial infarction, gastritis, Anemia. ms3 01/16 00:03 HEART Score: History: Slightly Suspicious (0), ECG: Normal (0), Age: > 45 and < 65 ms3 years (1), Risk Factors: No Risk Factors Known (0), Troponin: < or = 1 x Normal Limit (0), Total Score = 1. Data reviewed: vital signs, nurses notes, lab test result(s), EKG, radiologic studies, and as a result, I will discharge patient. Independent interpretation of the following test(s) in the Emergency Department EKG: See my EKG interpretation above monitor and storage bin tender: rate is 90 beats/min, Rhythm is normal sinus rhythm, regular, with no ectopy, Interpretation: normal rate, normal rhythm. Historians other than the Patient: EMS: [facility] [place]. Care significantly affected by the following Social Determinants of Health: Poor access to healthcare and/or lack of insurance. Counseling: I had a detailed discussion with the patient and/or guardian regarding: the historical points, exam findings, and any diagnostic results supporting the discharge/admit diagnosis, lab results, radiology results, the need for outpatient follow up, to return to the emergency department if symptoms worsen or persist or if there are any questions or concerns that arise at home. Response to treatment: the patient's symptoms have mildly improved after treatment, and as a result, I will discharge patient. Special discussion: Based on the patient's history, exam, and Dx evaluation, there is no indication for emergent intervention or inpatient Tx. It is understood by the patient/guardian that if the Sx's persist or worsen they need to return immediately for re-evaluation. 01/15 21:05 Order name: Basic Metabolic Panel; Complete Time: 22:14 ms3 01/15 21:05 Order name: CBC with Diff; Complete Time: 22:14 ms3 01/15 21:05 Order name: LFT's; Complete Time: 22:14 ms3 01/15 21:05 Order name: Magnesium; Complete Time: 22:14 ms3 01/15 21:05 Order name: NT PRO-BNP; Complete Time: 22:14 ms3 01/15 21:05 Order name: PT-INR; Complete Time: 22:00 ms3 01/15 21:05 Order name: Troponin HS; Complete Time: 22:14 ms3 01/15 21:50 Order name: CBC Smear Scan; Complete Time: 22:14 EDMS 01/15 21:05 Order name: XRAY Chest (1 view); Complete Time: 22:00 ms3 01/15 21:05 Order name: EKG; Complete Time: 21:05 ms3 01/15 21:05 Order name: Cardiac monitoring; Complete Time: 21:21 ms3 01/15 21:05 Order name: EKG - Nurse/Tech; Complete Time: 21:21 ms3 01/15 21:05 Order name: IV Saline Lock; Complete Time: 21:21 ms3 01/15 21:05 Order name: Labs collected and sent; Complete Time: 21:21 ms3 01/15 21:05 Order name: O2 Per Protocol; Complete Time: 21:21 ms3 01/15 21:05 Order name: O2 Sat Monitoring; Complete Time: 21:21 ms3 EC/25 21:55 Rate is 92 beats/min. Rhythm is regular. QRS [place] is Normal. [place] interval is normal. QRS ms3 interval is normal. Clinical impression: Normal ECG. Interpreted by me. Reviewed by me. Administered Medications: No medications were administered Disposition Summary: 01/15/23 22:21 Discharge Ordered Location: Home ms3 Condition: Stable ms3 Diagnosis - Chest pain, unspecified ms3 - Pedal Edema ms3 - Alcohol abuse ms3 Followup: ms3 - With: Nehemias Enriquez, DO - When: 1 - 2 days - Reason: Recheck today's complaints Followup: ms3 - With: Donnell Giraldo MD - When: 1 - 2 days - Reason: Recheck today's complaints Discharge Instructions: - Discharge Summary Sheet ms3 - Nonspecific Chest Pain, Adult ms3 - Alcohol Use Disorder ms3 - Alcoholic Liver Disease ms3 Forms: - Medication Reconciliation Form ms3 - Thank You Letter ms3 - Antibiotic Education ms3 - Prescription Opioid Use ms3 Signatures: Dispatcher [employer] EDMS Damián Martinez, RATCHET SETTER-C RATCHET SETTER-Cla1 Len Johnson, RN RN jb4 Agustín Todd DO DO ms3 Corrections: (The following items were deleted from the chart) 21:22 21:05 CBC+H.LAB.BRZ ordered. EDMS EDMS 21:51 21:25 CBC+H.LAB.BRZ ordered. EDMS EDMS
[2023-01-15 23:00] VITALS: TEMP 98.5
[2023-01-15 23:03] VITALS: BP 119/78; O2SAT 97
--- NOTE | 2023-01-16 17:11 | EKG ---
Test Date: 2023-01-15 Test Time: 21:09:47 Dandy Tender: KOURTNEY MEASUREMENT RESULTS: Intervals: Rate: 92 IA: 162 QRSD: 86 QT: 366 QTc: 452 [place]: P: 36 IA: 162 QRS: -28 T: 53 INTERPRETIVE STATEMENTS: Normal sinus rhythm Normal ECG Compared to ECG 12/14/2022 07:31:40 No significant changes Electronically Signed On 01-16-23 17:09:50 CDT by Donnell Giraldo
== END 2023-01-15 22:55 | disposition home or self-care (01) ==
LOC: ER 20:58
DX: R07.89 Other chest pain (principal); R60.9 Edema, unspecified; F10.10 Alcohol abuse, uncomplicated
CPT/HCPCS: 36415; 71045; 80048; 80076; 83735; 83880; 84484; 85025; 85610; 93005; 99284

== ENCOUNTER 2023-01-30 17:55 | Inpatient (IN) | payer SELFPAY ==
--- OUTSIDE RECORDS SUMMARY | 2023-01-30 18:02 | XMS REPORT | Continuity of Care Document ---
:1965 Author Organization [facility] t Address [address] [facility] [address] [place] [address] Care Team Providers Name Role Phone KAY ALBERTO Primary Care Physician Unavailable DR ANASTASIA TERRELL Attending Clinician Unavailable PRESTON ENRIQUEZ Attending Clinician Unavailable KAY ALBERTO Attending Clinician Unavailable Doctor Unassigned, [place] Attending Clinician Unavailable RUBEN CONN Attending Clinician Unavailable Pardeep Moody MD Attending Clinician Ruben Conn MD Attending Clinician CHRISTIAN Attending Clinician Unavailable Tamara Partida LVN Attending Clinician Maya Nguyen DO Attending Clinician RIVKA PALACIOS Attending Clinician Unavailable Rivka Palacios MD Attending Clinician [phone] Sujit Carolina MD Attending Clinician DR KARRI THAYER Attending Clinician Unavailable Edna Attending Clinician Unavailable Kay Alberto MD Attending Clinician Marcel Menjivar MD Attending Clinician DR ADY CONN Attending Clinician Unavailable DR ANASTASIA TERRELL Admitting [...] Policy Number Effective Date Expiration Date [place] 1000 [id number] 2022 00:00:00 MEDICAID SSI PENDING 2022 2022 [...] Formattin ity of 00:00: g of this [place] note Medical might be Branch different from the original. Added automatic ally from request for surgery [id number] Alcohol Alcohol Disease Recurre [facility] withdrawal [...] Active Univers ALLERGIE Class ity of S [facility] NO KNOWN Allergy Active [facility] ALLERGIE [facility] No Known DA Active [facility] Allergie Flippin s Social History Social Habit Start Date Stop Date Quantity Comments Source History of tobacco Passive smoker Un iversity of use [place] [facility] History SDOH Social Unive rsity of Connections Get [place] [facility] ical Together Branch History SDOH Social Unive rsity of Connections [facility] [place] [facility] History SDOH Social Unive rsity of Connections [place] [facility] Membership Branch History SDOH Social Unive rsity of Connections [place] [facility] Meetings Branch History SDOH [facility] Medical Ce nter Lived Exposure to 2022-09-27 2022-10-07 Not sure University of SARS-CoV-2 (event) 00:00:00 15:03:00 [place] [facility] Cigarettes smoked 2022-10-07 2022-10-07 Univers ity of current (pack per 00:00:00 00:00:00 [facility] edical day) - Reported Branch Cigarette 2022-10-07 2022-10-07 University of pack-years 00:00:00 00:00:00 [place] [facility] Alcohol intake 2022-10-07 2022-10-07 6 /d University of 00:00:00 00:00:00 [place] [facility] History SDOH 2022-10-07 2022-10-07 5 University o f Alcohol Frequency 00:00:00 00:00:00 [place] [facility] History SDOH 2022-10-07 2022-10-07 3 University o f Alcohol Std Drinks 00:00:00 00:00:00 [place] [facility] History SDOH 2022-10-07 2022-10-07 5 University o f Alcohol Binge 00:00:00 00:00:00 [place] [facility] History SDOH Social 2022-10-07 2022-10-07 5 Unive rsity of Connections Phone 00:00:00 00:00:00 [place] M edical Branch History SDOH Social 2022-10-07 2022-10-07 98 Unive rsity of Connections Living 00:00:00 00:00:00 [place] [facility] History SDOH 2022-10-07 2022-10-07 0 University o f Physical Activity 00:00:00 00:00:00 [place] [facility] edical DPW Branch History SDOH 2022-10-07 2022-10-07 0 University o f Physical Activity 00:00:00 00:00:00 [facility] edical MPS Branch History SDOH 2022-10-07 2022-10-07 5 University o f Financial 00:00:00 00:00:00 [place] [facility] History SDOH Food 2022-10-07 2022-10-07 1 Univers ity of Worry 00:00:00 00:00:00 [place] [facility] History SDOH Food 2022-10-07 2022-10-07 1 Univers ity of Scarcity 00:00:00 00:00:00 [place] [facility] History SDOH 2022-10-07 2022-10-07 2 University o f Transport Med 00:00:00 00:00:00 [place] [facility] History SDMS 2022-10-07 2022-10-07 2 University o f Transport Non-Med 00:00:00 00:00:00 [facility] edical [place] Tobacco use and 2021-12-18 2021-12-[address] [facility] [address] [facility] exposure 00:00:00 00:00:00 tobacco non-user Medical Center History [facility] 2021-12-18 2021-12-[address] [facility] Unable to 00:00:00 00:00:00 Medical Center Pay History [facility] 2021-12-18 2021-12-[address] [facility] Housing Homeless 00:00:00 00:00:00 Medical Center Last Year Sex Ass[birth year] At [birth year] Universit y of 00:00:00 00:00:00 [facility] Smoking Status Start Date Stop Date Source Smokes tobacco daily 2022-10-07 00:00:00 Univers ity of [facility] Occasional tobacco smoker 2022-08-22 00:00:00 Un iversity of [facility] Medications Ordered Filled Start Stop Current Ordering Indication Dosage Frequency Signature Comments Components Source Medication Medication Date Date Medication? Clinician (SIG) Name Name oxazepam 15 Yes [id number] 15mg Take 1 Univers mg capsule 3-22 capsule by ity of 00:00: mouth [place] 00 every 4 Medical (four) Branch hours as needed (Only while awake for DBP equal to or greater than 100, HR equal to or greater than 100.). foLIC acid Yes [id number] 1mg Take 1 Univers 1 mg tablet 3-20 tablet by ity of 00:00: mouth in [place] 00 the Medical morning. Branch pantoprazol Yes [id number] 40mg Take 1 Univers e 40 mg EC 3-20 tablet by ity of tablet 00:00: mouth in [place] 00 the Medical morning Branch and 1 tablet in the evening. propranoloL Yes [id number] 10mg Take 1 Univers 10 mg 3-20 tablet by ity of tablet 00:00: mouth in [place] 00 the Medical morning Branch and 1 tablet in the evening. thiamine Yes [id number] 100mg Take 1 Un juan antonio 100 mg 3-20 tablet by ity of tablet 00:00: mouth in [place] 00 the Medical morning. Branch ferrous Yes [id number] 325mg Take 1 Uni vers sulfate 3-20 tablet by ity of (IRON) 325 00:00: mouth in [facility] as mg (65 mg 00 the [facility] iron) morning Branch tablet and 1 tablet at noon and 1 tablet in the evening. Take with meals. polyethylen Yes [id number] 17g Take 17 g Univers e glycol 3-20 by mouth ity of 3350 17 00:00: in the [place] gram/dose 00 morning. Medica l powder Branch oxazepam 15 2022- No [id number] 15mg Take 1 Univers mg capsule -10 10- capsule by it y of 00:00: 04:59 mouth [place] 00 :00 every 12 Medical (twelve) Branch hours for 1 day. oxazepam 15 2022- No [id number] 15mg Take 1 Univers mg capsule -20 - capsule by it y of 00:00: 00:00 mouth [place] 00 :00 every 12 Medical (twelve) Branch hours for 1 day. oxazepam 2022- No 15mg [Order 1 Univ ers (SERAX) -09 10- Start] ity of capsule 15 18:00: 18:14 [...] Q12H TAPER, 2 doses, First dose on 10/10/22 at 1715, Last dose on Mon10/11/22 at 0515, Routine [Order 2 End] iron 2022- No 300mg 300 mg, IV Unive rs sucrose 10-09 Infusion, ity of (VENOFER) 13:45: 17:37 ONCE, [place] 300 mg in 00 :00 Administer Medi heriberto NaCl 0.9% over 1.5 Branch (NS) 250 mL Hours, On infusion 10/09/22 at 0845, For 1 dose magnesium 2022- No 4g 4 g, IV Univ ers sulfate in 10-09 Piggyback, it y of water 4 12:30: 17:18 at 25 [place] gram/50 mL 00 :00 mL/hr Medical (8 %) IV Administer Branc h Piggyback 4 over 120 g Minutes, ONCE, 1 dose, On [place] 10/09/22 at 0730, Routine melatonin Yes 3mg 3 mg, Univers (MELATIN) 3-19 Oral, QHS, ity of tablet 3 mg 05:45: First dose [place] 00 on [facility] 10/09/22 at Branch 0045, Until Discontinu ed, Routine thiamine Yes [id number] 100mg Take 1 Un juan antonio 100 mg 3-19 tablet by ity of tablet 00:00: mouth in [place] 00 the Medical morning. Branch oxazepam 15 Yes [id number] 15mg Take 1 Univers mg capsule 3-19 capsule by ity of 00:00: mouth [place] 00 every 4 Medical (four) Branch hours as needed (Only while awake for DBP equal to or greater than 100, HR equal to or greater than 100.). ferrous Yes [id number] 325mg Take 1 Uni vers sulfate 3-19 tablet by ity of (IRON) 325 00:00: mouth in [facility] as mg (65 mg 00 the Medical iron) morning Branch tablet and 1 tablet at noon and 1 tablet in the evening. Take with meals. polyethylen Yes [id number] 17g Take 17 g Univers e glycol 3-19 by mouth ity of 3350 17 00:00: in the [place] gram/dose 00 morning. Medica l powder Branch oxazepam 15 2022- No [id number] 15mg Take 1 Univers mg capsule 10-09 capsule by it y of 00:00: 04:59 mouth [place] 00 :00 every 8 Medical (eight) Branch hours for 1 day. oxazepam 15 0 2022- No [id number] 15mg Take 1 Univers mg capsule 10-09 [...] l (NS) First dose Branch piggyback on [facility] 10/08/22 at 1215, Last dose on Mon10/10/22 at 1215, 50 mL oxazepam Yes 15mg 15 mg, Univers (SERAX) 10-08 Oral, ity of capsule 15 16:00: Q4HPRN, [place] mg 09 Starting Medical on [facility] 10/08/22 at 1100, Until Discontinu ed, Routine, Only while awake for DBP equal to or greater than 100, HR equal to or greater than 100. thiamine Yes 100mg 100 mg, Unive rs (VITAMIN -18 Oral, ity of B1) tablet 14:00: DAILY, [place] 100 mg 00 First dose Medical on [facility] 10/08/22 at 0900, Until Discontinu ed, Routine foLIC acid Yes 1mg 1 mg, Univer s (FOLATE) -18 Oral, ity of tablet 1 mg 14:00: DAILY, [place] 00 First dose Medical on [facility] 10/08/22 at 0900, Until Discontinu ed, Routine magnesium 2022- No 4g 4 g, IV Univ ers sulfate in 10-08 Piggyback, it y of water 4 14:00: 16:51 at 25 [place] gram/50 mL 00 :00 mL/hr Medical (8 %) IV Administer Branc h Piggyback 4 over 120 g Minutes, ONCE, 1 dose, On [facility] 3/18/23 at 0900, Routine pantoprazol 2023-0 Yes 40mg 40 mg, Univ ers e 3-18 Slow IV ity of (PROTONIX) 13:00: Push, [place] injection 00 Q12H, Medical 40 mg First dose Branch on 10/08/22 at 0800, Until Discontinu ed oxazepam 2022-0 Yes 10mg 10 mg, Univers (SERAX) 3-18 Oral, ity of capsule 10 04:35: Q6HPRN, [place] mg 10 Starting Medical on Fri Branch 10/07/22 at 2335, Until Discontinu ed, Routine, Withdrawal signs pantoprazol 2022-0 2023- No 40mg 40 mg, Uni vers e 3-18 03-18 Oral, BID, ity of (PROTONIX) 01:00: 12:22 First dose [place] EC tablet 00 :26 on Fri Medical 40 mg 10/07/22 at Branch 2000, Until Discontinu ed, Routine ondansetron 2022-0 Yes 4mg 4 mg, Slow Univers (ZOFRAN 3-17 IV Push, ity of (PF)) 15:26: Q6HPRN, [place] injection 4 20 Starting Medi heriberto mg on Fri Branch 10/07/22 at 1026, Until Discontinu ed, Routine, Nausea and Vomiting (N/V) acetaminoph 2022-0 Yes 650mg 650 mg, Un juan antonio en 3-17 Oral, ity of (TYLENOL) 15:26: Q6HPRN, [place] tablet 650 19 Starting Medic al mg on Fri Branch 10/07/22 at 1026, Until Discontinu ed, Routine, Pain (scale 1-3) foLIC acid 2022-0 Yes [id number] 1mg Take 1 Univers 1 mg tablet 2-02 tablet by ity of 00:00: mouth in [place] [address] the Medical morning. [place] foLIC acid 2022-0 Yes [id number] 1mg Take 1 Univers 1 mg tablet 2-02 tablet by ity of 00:00: mouth in [place] 00 the Medical morning. [place] foLIC acid 2022-0 Yes [id number] 1mg Take 1 Univers 1 mg tablet 2-02 tablet by ity of 00:00: mouth in [place] 00 the Medical morning. [place] foLIC acid 2022-0 Yes [id number] 1mg Take 1 Univers 1 mg tablet 2-02 tablet by ity of 00:00: mouth in [place] 00 the Medical morning. [place] foLIC acid 0 Yes [id number] 1mg Take 1 Univers 1 mg tablet 08-25 tablet by ity of 00:00: mouth in [place] 00 the Medical morning. [place] foLIC acid 2022-0 2022- No [id number] 1mg Take 1 Univers 1 mg tablet 08-25 tablet by it y of 00:00: 00:00 mouth in [place] 00 :00 the Medical morning. [place] foLIC acid 0 2022- No [id number] 1mg Take 1 Univers 1 mg tablet 08-25 tablet by it y of 00:00: 00:00 mouth in [place] 00 :00 the Medical morning. [place] pantoprazol 0 Yes 40mg 40 mg, Univ ers e 08-24 Oral, BID, ity of (PROTONIX) 14:00: First dose [place] EC tablet 00 on Mon Medical 40 mg 08/24/22 at [place] 0800, Until Discontinu ed, Routine KCL 2022-2022- No 40meq 40 mEq, Univers (KLOR-CON 08-24 Oral, ity of M20) tablet 13:30: 14:14 ONCE, 1 [place] 40 mEq 00 :00 dose, On Mon08/24/22 [place] at 0730, Routine propranoloL 2022-0 Yes 10mg 10 mg, Univ ers (INDERAL) 08-24 Oral, BID, ity of tablet 10 02:00: First dose [place] mg 00 on Mon08/23/22 at [place] 2000, Until Discontinu ed, Routine phytonadion 2022-2022- No 5mg 5 mg, Univ ers e (vitamin 2- Oral, ity of K1) 00:45: 14:59 DAILY, 3 [place] (MEPHYTON) 00 :00 doses, Medical tablet 5 mg First dose Br anch on Mon08/23/22 at 1845, Last dose on Mon08/25/22 at 0900, Routine pantoprazol 2022-0 Yes [id number] 40mg Take 1 Univers e 40 mg EC 08-24 tablet by ity of tablet 00:00: mouth in [place] the Medical morning Branch and 1 tablet in the evening. propranoloL 2022-0 Yes [id number] 10mg Take 1 Univers 10 mg 2-01 tablet by ity of tablet 00:00: mouth in [place] 00 the Medical morning Branch and 1 tablet in the evening. pantoprazol 2023-0 Yes [id number] 40mg Take 1 Univers e 40 mg EC 2-01 tablet by ity of tablet 00:00: mouth in [place] [address] the Medical morning Branch and 1 tablet in the evening. propranoloL 2023-0 Yes [id number] 10mg Take 1 Univers 10 mg 2-01 tablet by ity of tablet 00:00: mouth in [place] [address] the Medical morning Branch and 1 tablet in the evening. pantoprazol 2023-0 Yes [id number] 40mg Take 1 Univers e 40 mg EC 2-01 tablet by ity of tablet 00:00: mouth in [place] [address] the Medical morning Branch and 1 tablet in the evening. propranoloL 2023-0 Yes [id number] 10mg Take 1 Univers 10 mg 2-01 tablet by ity of tablet 00:00: mouth in [place] [address] the Medical morning Branch and 1 tablet in the evening. pantoprazol 2023-0 Yes [id number] 40mg Take 1 Univers e 40 mg EC 2-01 tablet by ity of tablet 00:00: mouth in [place] [address] the Medical morning Branch and 1 tablet in the evening. propranoloL 2023-0 Yes [id number] 10mg Take 1 Univers 10 mg 2-01 tablet by ity of tablet 00:00: mouth in [place] [address] the Medical morning Branch and 1 tablet in the evening. pantoprazol 2023-0 Yes [id number] 40mg Take 1 Univers e 40 mg EC 2-01 tablet by ity of tablet 00:00: mouth in [place] [address] the Medical morning Branch and 1 tablet in the evening. propranoloL 2023-0 Yes [id number] 10mg Take 1 Univers 10 mg 2-01 tablet by ity of tablet 00:00: mouth in [place] [address] the Medical morning Branch and 1 tablet in the evening. propranoloL 2023-0 2023- No [id number] 10mg Take 1 Univers 10 mg 2-01 02-01 tablet by ity of tablet 00:00: 00:00 mouth in [place] 00 :00 the Medical morning [place] and 1 tablet in the evening. pantoprazol 2023-0 2023- No [id number] 40mg Take 1 Univers e 40 mg EC 2-01 02-01 tablet by ity of tablet 00:00: 00:00 mouth in [place] 00 :00 the Medical morning Branch and 1 tablet in the evening. Do all this for 30 days. pantoprazol 2022- No [id number] 40mg Take 1 Univers e 40 mg EC 08-24 tablet by ity of tablet 00:00: 00:00 mouth in [place] 00 :00 the Medical morning Branch and 1 tablet in the evening. propranoloL 2022-0 2022- No [id number] 10mg Take 1 Univers 10 mg 08-24 tablet by ity of tablet 00:00: 00:00 mouth in [place] 00 :00 the [facility] morning Branch and 1 tablet in the [...] at 0900, Until Discontinu ed, Routine iron 2022- No 200mg 200 mg, IV Unive rs [...] dose, On Mon08/21/22 at 2245, Routine phytonadion 2022-0 2022- No 10mg IV Unive rs e (VITAMIN 08-22 Piggyback, it y of K) 10 mg in 04:22: 08:42 ONCE, 1 [place] NaCl 0.9% 00 :00 dose, On Medica l (NS) [facility] piggyback 08/21/22 at 2230, 50 mL pantoprazol 2022- No 80mg 80 mg, Uni vers e 08-22 Slow IV ity of (PROTONIX) 03:16: 04:15 Push, [place] injection 00 :00 ONCE, 1 Medical 80 mg dose, On [facility] 08/21/22 at 2130 lactulose Yes 30mL 30 mL, Univer s (CEPHULAC) 30 Oral, BID, ity of solution 30 02:00: First dose [place] mL 00 on [facility] 08/21/22 at [place] 1999, Until Discontinu ed, Routine acetaminoph Yes 650mg 650 mg, Un juan antonio en 08-22 Oral, ity of (TYLENOL) 01:51: Q6HPRN, [place] tablet 650 03 Starting Medic al mg on [facility] 08/21/22 at 1951, Until Discontinu ed, Routine, Pain (scale 1-3) pantoprazol 2022- No 8mg/h 8 mg/hr U nivers e 08-22 (50 ity of (PROTONIX) 01:30: 12:39 mL/hr), IV [place] 80 mg in 00 :06 Infusion, Medica l NaCl CONTINUOUS Branch 0.9%(NS) , Starting 500 mL IV on [place] infusion 08/21/22 at (CNR) 1930 cefTRIAXone 2022- No 1000mg 1,000 mg, Univers (ROCEPHIN) 08-22 Intravenou it y of 1,000 mg in 01:30: 16:35 s, Q24H [place] NaCl 0.9% 00 :33 ABX, 7 Medical (NS) 50 mL doses, [place] MINI-BAG First dose on [place] 08/21/22 at 1930, Last dose on [facility] 08/27/22 at 1930, Administer over [...] needed for Anxiety. metoclopram 2022-0 Yes 5mg Q.[id number] Take [address] [facility] 6- [id number] by mouth 3 [place] (REGLAN) 5 [...] needed for Anxiety. metoclopram 2022-0 Yes 5mg Q.[id number] Take [address] [facility] 6-07 [id number] by mouth 3 [place] (REGLAN) 5 [...] needed for Anxiety. metoclopram 2022-0 Yes 5mg Q.[id number] Take [address] [facility] 6-07 [id number] by mouth 3 [place] (REGLAN) 5 [...] needed for Anxiety. metoclopram 2022-0 Yes 5mg Q.[id number] Take [address] [facility] 6-07 [id number] by mouth 3 [place] (REGLAN) 5 [...] needed for Anxiety. metoclopram 2022-0 Yes 5mg Q.[id number] Take [address] [facility] 6-07 [id number] by mouth 3 [place] (REGLAN) 5 [...] needed for Anxiety. metoclopram 2022-0 Yes 5mg Q.[id number] Take [address] [facility] 6-07 [id number] by mouth 3 [place] (REGLAN) 5 [...] needed for Anxiety. metoclopram 2022-0 Yes 5mg Q.[id number] Take [address] [facility] 6- [id number] by mouth 3 [place] (REGLAN) 5 [...] needed for Anxiety. metoclopram 2-0 Yes 5mg Q.[id number] Take [address] [facility] 6-07 [id number] by mouth 3 [place] es (REGLAN) 5 14:00: 3D (three) Medi heriberto MG tablet 10 times Center daily. chlordiazeP 2021-2021- No 10mg Q.[id number] Take [address] OXIDE 12-28- [id number] by mouth 3 L ukes (LIBRIUM) 11:11: 00:00 3D (three) Medi heriberto 10 MG 26 :00 times Center capsule daily. multivitami 2021-0 2021- No 1{tbl} QD Take [address] n with 12-28 tablet by [facility] 11:11: 00:00 mouth Medical tablet 26 :00 daily. Center ondansetron 2021-0 2021- No 4mg Take [address] (ZOFRAN) 4 12-28-07 by mouth [facility] MG tablet 11:11: 00:00 every 8 Medi heriberto 26 :00 (eight) Center hours as needed for Nausea. thiamine 2021-0 2022- No 100mg QD Take [address] 100 MG 6- 06-07 mg by [facility] tablet 11:11: 00:00 mouth Medical 26 :00 daily. [place] chlordiazeP 2021-2021- No 10mg Q.[id number] Take [address] [facility] [address] OXIDE 6- 06-07 [id number] by mouth 3 L u[facility] (LIBRIUM) 11:11: 00:00 3D (three) Medi heriberto 10 MG 26 :00 times Center capsule daily. multivitami 2021-2021- No 1{tbl} QD Take [address] n with - 06-07 tablet by [facility] 11:11: 00:00 mouth Medical tablet 26 :00 daily. [place] ondansetron 2021-2021- No 4mg Take [address] (ZOFRAN) 4 6- 06-07 by mouth Luke s MG tablet 11:11: 00:00 every 8 Medi heriberto 26 :00 (eight) Center hours as needed for Nausea. thiamine 2021-2021- No 100mg QD Take [address] 100 MG 6- 06-07 mg by [facility] tablet 11:11: 00:00 mouth Medical 26 :00 daily. [place] chlordiazeP 2021- No 10mg Q.[id number] Take [address] [facility] [address] OXIDE 6- 06-07 [id number] by mouth 3 [facility] u[facility] (LIBRIUM) 11:11: 00:00 3D (three) Medi heriberto 10 MG 26 :00 times Center capsule daily. multivitami 2021-2021- No 1{tbl} QD Take [address] n with - 06-07 tablet by [facility] 11:11: 00:00 mouth Medical tablet 26 :00 daily. [place] ondansetron 2021-2021- No 4mg Take [address] (ZOFRAN) 4 6- 06-07 by mouth Luke s MG tablet 11:11: 00:00 every 8 Medi heriberto 26 :00 (eight) Center hours as needed for Nausea. thiamine 2021-2021- No 100mg QD Take [address] 100 MG 6-07 06-07 mg by [facility] tablet 11:11: 00:00 mouth Medical 26 :00 daily. [place] chlordiazeP 2021-2021- No 10mg Q.[id number] Take [address] [facility] [address] OXIDE 6- 06-07 [id number] by mouth 3 [facility] u[facility] (LIBRIUM) 11:11: 00:00 3D (three) Medi heriberto 10 MG 26 :00 times Center capsule daily. multivitami 2021- No 1{tbl} QD Take 1 [...] mouth Medical 26 :00 daily. Center chlordiazeP 2021- No 10mg Q.[id number] Take [address] [facility] [address] OXIDE 6- 06-07 [id number] by mouth 3 L u[facility] (LIBRIUM) 11:11: 00:00 3D (three) Medi heriberto 10 MG 26 :00 times Center capsule daily. multivitami 2021- No 1{tbl} QD Take 1 [...] mouth Medical 26 :00 daily. Center chlordiazeP 2021- No 10mg Q.[id number] Take [address] [facility] [address] OXIDE 6-07 06-07 [id number] by mouth 3 [facility] u[facility] (LIBRIUM) 11:11: 00:00 3D (three) Medi heriberto 10 MG 26 :00 times Center capsule daily. multivitami 2021-2021- No 1{tbl} QD Take [address] n with 6- 06-07 tablet by [facility] 11:11: 00:00 mouth Medical tablet 26 :00 daily. [place] ondansetron 2021-2021- No 4mg Take [address] (ZOFRAN) 4 6- 06-07 by mouth [facility] MG tablet 11:11: 00:00 every 8 Medi heriberto 26 :00 (eight) Center hours as needed for Nausea. thiamine 2021-0 2021- No 100mg QD Take [address] 100 MG 6- 06-07 mg by [facility] tablet 11:11: 00:00 mouth Medical 26 :00 daily. [place]lipp[place] chlordiazeP 2021-2021- No 10mg Q.[id number] Take [address] OXIDE 6-01 26- [id number] by mouth 3 L u[facility] (LIBRIUM) 11:11: 00:00 3D (three) Medi heriberto 10 MG 26 :00 times Center capsule daily. multivitami 2021-2021- No 1{tbl} QD Take [address] n with -01 26-07 tablet by [facility] 11:11: 00:00 mouth Medical tablet 26 :00 daily. [place] ondansetron 2021-2021- No 4mg Take [address] (ZOFRAN) 4 - 06-07 by mouth [facility] MG tablet 11:11: 00:00 every 8 Medi heriberto 26 :00 (eight) Center hours as needed for Nausea. thiamine 2021-0 2- No 100mg QD Take [address] 100 MG 6- 06-07 mg by [facility] tablet 11:11: 00:00 mouth Medical 26 :00 daily. [place] chlordiazeP 2021-0 2- No 10mg Q.[id number] Take [address] [facility] [address] OXIDE 6- 06-07 [id number] by mouth 3 [facility] u[facility] (LIBRIUM) 11:11: 00:00 3D (three) Medi heriberto 10 MG 26 :00 times Center capsule daily. multivitami 2021-0 2- No 1{tbl} QD Take [...] QD Take [address] 100 MG 12-28- mg by [facility] tablet 11:11: 00:00 mouth [...] Take 1 [facility] 100 MG 6-01 27-07 tablet [facility] tablet 00:00: 23:59 (100 mg Medical 00 :00 total) by Center mouth daily for 30 days. QUEtiapine 2021-0 2- No 25mg QD Take [address] (SEROquel) 6- 07-07 tablet (25 Amanda kes 25 MG 00:00: [...] Take 1 [facility] 100 MG 6-01 27-07 tablet [facility] tablet 00:00: 23:59 (100 [...] Take 1 [facility] 100 MG 6-01 27-07 tablet [facility] tablet 00:00: 23:59 (100 mg Medical 00 :00 total) by Center mouth daily for 30 days. QUEtiapine 2021-0 2- No 25mg QD Take [address] (SEROquel) 6- 07-07 tablet (25 Amanda kes 25 MG 00:00: 23:59 mg total) Medica l tablet 00 :00 by mouth Center nightly for 30 days. multivitami 2021-0 2- No 1{tbl} QD Take [address] n with 6-07 07-07 tablet by [facility] 00:00: 23:59 mouth [...] Nausea for up to 10 days. ondansetron 2021- No 4mg Take [address] [facility] (ZOFRAN) 4 6- 06-17 tablet (4 [facility] MG tablet 00:00: 23:59 mg total) Me dical 00 :00 by mouth Center every 8 (eight) hours as needed for Nausea for up to 10 days. ondansetron 2021-2021- No 4mg Take [address] [facility] (ZOFRAN) 4 6- 06-17 tablet (4 Andrew es MG tablet 00:00: 23:59 mg total) Me dical 00 :00 by mouth Center every 8 (eight) hours as needed for Nausea for up to 10 days. ondansetron 2021-2021- No 4mg Take [address] (ZOFRAN) 4 6 06-17 tablet (4 [facility] es MG tablet 00:00: 23:59 mg total) Me dical 00 :00 by mouth Center every 8 (eight) hours as needed for Nausea for up to 10 days. ondansetron 2021-2021- No 4mg Take [address] [facility] (ZOFRAN) 4 6- 06-17 tablet (4 [place] es MG tablet 00:00: 23:59 mg total) Me dical 00 :00 by mouth Center every 8 (eight) hours as needed for Nausea for up to 10 days. ondansetron 2021-2021- No 4mg Take [address] [facility] (ZOFRAN) 4 6- 06-17 tablet (4 [place] es MG tablet 00:00: 23:59 mg total) Me dical 00 :00 by mouth Center every 8 (eight) hours as needed for Nausea for up to 10 days. ondansetron 2021-2021- No 4mg Take [address] [facility] [address] (ZOFRAN) 4 6-07 06-17 tablet (4 Andrew es MG tablet 00:00: 23:59 mg total) Me dical 00 :00 by mouth Center every 8 (eight) hours as needed for Nausea for up to 10 days. ondansetron 2021-0 2022- No 4mg Take [...] Max Daily Amount: 10 mg chlordiazeP 2-0 2- No 10mg QD Take [address] [facility] [...] 2022-10-09 17:21:00 128 mm[Hg] [facility]iver [facility]ity of [place] [facility] blood 2022-10-09 17:21:00 89 mm[Hg] Unive rsity of [facility] Heart rate 2022-10-09 17:21:00 107 /min [facility] Body temperature 2022-10-09 17:21:00 36.5 [facility] Respiratory rate 2022-10-09 17:21:00 18 /min [facility] Oxygen saturation in 2022-10-09 17:21:00 98 /min [facility] Arterial blood by [facility] Pulse oximetry Branch Body height 2022-10-07 20:10:00 162.6 cm [facility] Body weight 2022-10-07 20:10:00 68.04 kg [facility] BMI 2022-10-07 20:10:00 25.75 kg/m2 [facility] Systolic blood 2022-08-24 18:43:00 139 mm[Hg] Univer sity of [facility] Diastolic blood 2022-08-24 18:43:00 79 mm[Hg] Unive rsity of [facility] Heart rate 2022-08-24 18:43:00 63 /min Universi ty [facility] Body temperature 2022-08-24 18:43:00 36.33 Carley Univ ersity [facility] Respiratory rate 2022-08-24 18:43:00 19 /min [facility] in 2022-08-24 18:43:00 99 /min University Arterial blood by [facility] Pulse oximetry Branch Body height 2022-08-23 14:57:00 162.6 cm Universi ty [facility] Body weight 2022-08-23 14:57:00 69.4 kg Universi ty [facility] BMI 2022-08-23 14:57:00 26.26 kg/m2 Universi ty [facility] Height 2022-06-08 22:19:00 162.56 CM Weight 2022-06-08 22:19:00 66.22 KG WEIGHT 2021-12-18 11:00:00 64.819 kg HEIGHT 2021-12-18 11:00:00 162.6 cm WEIGHT 2021-12-18 11:00:00 64.819 kg HEIGHT 2021-12-18 11:00:00 162.6 cm Systolic blood 2021-12-28 08:35:00 114 mm[Hg] [facility] Diastolic blood 2021-12-28 08:35:00 66 mm[Hg] [facility] Heart rate 2021-12-28 08:35:00 85 /min [facility] Body temperature 2021-12-28 08:35:00 36.61 Carley [facility] Respiratory rate 2021-12-28 08:35:00 18 /min [facility] Oxygen saturation in 2021-12-28 08:35:00 97 /min [facility] Arterial blood by Medical nter Pulse oximetry Body height 2021-12-18 11:00:00 162.6 cm [facility] Body weight 2021-12-18 11:00:00 64.819 kg [facility] BMI 2021-12-18 11:00:00 24.53 kg/m2 [facility] Procedures Procedure Date / Time Performing Source Performed Clinician AUTHORIZATION FOR RELEASE OF PHI 2022-10-18 [facility] 05:01:00 Unassigned, No [facility] [place] [facility] MAGNESIUM 2022-10-09 Caro Starks [facility] 10:24:00 [facility] HEPATIC FUNCTION PANEL ([id number]) 2022-10-09 Caro Starks U niversity of (ALB,T.PRO,BILI 10:24:00 [place] [facility] T,BU/BC,ALT,AST,ALK PHOS) [place] BASIC METABOLIC PANEL (NA, K, CL, 2022-10-09 Caro Starks [place] of CO2, GLUCOSE, BUN, CREATININE, CA) 10:24:00 [facility] CBC WITH DIFF 2022-10-09 Caro Starks [facility] 10:24:00 [facility] PROTHROMBIN TIME / INR 2022-10-09 Caro Starks [facility] 10:24:00 [facility] CBC WITHOUT DIFF 2022-10-08 Tabatha Groves [facility] 22:45:00 [facility] MAGNESIUM 2022-10-08 Zuleyka [facility] 10:28:00 [facility] HEPATIC FUNCTION PANEL ([id number]) 2022-10-08 Tabahta Groves niversity of (ALB,T.PRO,BILI 10:28:00 [facility] T,BU/BC,ALT,AST,ALK PHOS) [place] BASIC METABOLIC PANEL (NA, K, CL, 2022-10-08 Zuleyka [facility] of CO2, GLUCOSE, BUN, CREATININE, CA) 10:28:00 [facility] CBC WITH DIFF 2022-10-08 Zuleyka [facility] of 10:28:00 [facility] IRON PANEL 2022-10-07 Zuleyka [facility] 22:55:00 [facility] BLOOD CULTURE SCREEN 2022-10-07 Yaneli [facility] of 19:11:00 [facility] BLOOD CULTURE SCREEN 2022-10-07 Yaneli [facility] of 18:30:00 [facility] TROPONIN I 2022-10-[address] [facility] of 16:28:00 [facility] HEPATIC FUNCTION PANEL ([id number]) 2022-10-07 GrovesTabatha muhammad niversity of (ALB,T.PRO,BILI 16:28:00 [facility],BU/BC,ALT,AST,ALK PHOS) [place] BASIC METABOLIC PANEL (NA, K, CL, 2022-10-07 [facility], [facility] of CO2, GLUCOSE, BUN, CREATININE, CA) 16:28:00 [facility] CBC WITH DIFF 2022-10-07 [facility], [facility] of 16:28:00 [facility] PROTHROMBIN TIME / INR 2022-10-07 [facility] 16:28:00 [facility] ACTIVATED PARTIAL THRMPLAS JOVAN 2022-10-07 [facility], [facility] niversity of 16:28:00 [facility] FIBRINOGEN 2022-10-07 [facility], [facility] of 16:28:00 [facility] HB ABO GROUPING 2022-10-07 [facility], [facility] of 16:28:00 [facility] EXTERNAL PROVIDER RECORDS 2022-09-01 [facility] reji of 06:01:00 Unassigned, No [facility] [place] [facility] COMP. METABOLIC PANEL ([id number]) 2022-08-24 Maya Nguyen iversity of 10:03:00 [facility] CBC WITH DIFF 2022-08-24 Maya Nguyen [place] of 10:03:00 [facility] PROTHROMBIN TIME / INR 2022-08-23 Maya Nguyen [facility] y of 19:38:00 [facility] FIBRINOGEN 2022-08-23 [facility] of 19:38:00 [facility] ESOPHAGOGASTRODUODENOSCOPY 2022-08-23 John Paul Zuniga Unive rsity of 15:26:00 [facility] EGD (ENDO) 2022-08-23 Maya Nguyen [place] of 15:18:04 [facility] MAGNESIUM 2022-08-23 Alejandro Ulysses [place] of 07:39:00 [facility] BASIC METABOLIC PANEL (NA, K, CL, 2022-08-23 Alejandro Ulysses [place] of CO2, GLUCOSE, BUN, CREATININE, CA) 07:39:00 [facility] CBC WITH DIFF 2022-08-23 BlackUlysses of 07:39:00 [facility] ENDOSCOPY PROCEDURE DOCUMENTATION 2022-08-23 [facility] of 06:01:00 Unassigned, No [facility] TRANSTHORACIC ECHO (TTE) COMPLETE 2022-08-22 Ulysses Allen of 20:45:45 [facility] URINALYSIS 2022-08-22 [place] of 20:06:00 [facility] COVID-19 (ID NOW RAPID TESTING) 2022-08-22 [place] of 17:35:00 [facility] LAB ONLY COVID INTERPRETATION 2022-08-22 Stone Obregon iversity of 17:35:00 [facility] CBC WITHOUT DIFF 2022-08-22 Ulysses Allen [place] of 17:01:00 [facility] FIBRINOGEN 2022-08-22 Ulysses Allen [facility] 17:00:00 [facility] DUPLEX VENOUS LEGS BILATERAL - BY 2022-08-22 Stone [place] of VASCULAR LAB 16:45:27 [facility] XR CHEST 1 VW 2022-08-22 Stone Obregon of 14:52:51 [facility] TRANSFUSE PACKED RBC 2022-08-22 [facility] 10:33:00 [facility] PREPARE PACKED RBC 2022-08-22 [facility] 10:17:48 [facility] POCT GLUCOSE (AUTOMATED) 2022-08-22 Rivka Palacios ity of 10:04:00 [facility] TROPONIN I 2022-08-22 Stone [place] of 08:16:00 [facility] HEPATIC FUNCTION PANEL ([id number]) 2022-08-22 Stone Obregon niversity of (ALB,T.PRO,BILI 08:16:00 [facility],BU/BC,ALT,AST,ALK PHOS) [place] BASIC METABOLIC PANEL (NA, K, CL, 2022-08-22 Stone Obregon of CO2, GLUCOSE, BUN, CREATININE, CA) 08:16:00 [facility] ABORH CONFIRMATION (LAB ONLY) 2022-08-22 Stone Obregon iversity of 08:12:00 [facility] HB ABO GROUPING 2022-08-22 Stone Obregon of 05:59:00 [facility] US ABDOMEN LIMITED 2022-08-22 Sabas [facility] of 04:56:28 [facility] BLOOD CULTURE SCREEN 2022-08-22 Sabas [facility] of 03:52:00 [facility] ETHANOL 2022-08-22 Sabas, [facility] of 03:51:00 [facility] PROTHROMBIN TIME / INR 2022-08-22 [facility] 03:51[facility]00 [facility] ACTIVATED PARTIAL THRMPLAS JOVAN 2022-08-22 Shahriar Obregonmy U niversity of 03:51:00 [facility] MAGNESIUM 2022-08-22 Sabas, [facility] of 03:24:00 [facility] FERRITIN SERUM 2022-08-22 Sabas, [facility] of 03:24:00 [facility] VITAMIN B12, LEVEL 2022-08-22 Sabas [facility] of 03:24:00 [facility] FOLATE 2022-08-22 Sabas, [facility] of 03:24:00 [facility] TROPONIN I 2022-08-22 Sabas [facility] of 03:24:00 [facility] HEPATIC FUNCTION PANEL ([id number]) 2022-08-22 Stone Obregon niversity of (ALB,T.PRO,BILI 03:24:00 [facility],BU/BC,ALT,AST,ALK PHOS) Branch BASIC METABOLIC PANEL (NA, K, CL, 2022-08-22 Sabas [facility] of CO2, GLUCOSE, BUN, CREATININE, CA) 03:24:00 [facility] LIPID PANEL ([id number])(TOTAL 2022-08-22 [facility] s[facility] of CHOLESTEROL, TRIGLYCERIDES, HDL) 03:24:00 [facility] IRON PANEL 2022-08-22 Sabas [facility] of 03:24:00 [facility] SALICYLATE 2022-08-22 Sabas [facility] of 03:24:00 [facility] CBC WITH DIFF 2022-08-22 Sabas [facility] of 03:24:00 [facility] GLYCOSYLATED HEMOGLOBIN (A1C) 2022-08-22 Stone Obregon Un iversity of 03:24:00 [facility] HEPATITIS B SURFACE ANTIBODY 2022-08-22 Stone Obregon Uni versity of 03:24:00 [facility] HEPATITIS B SURFACE ANTIGEN 2022-08-22 Shahriar Obregonmy Univ ersity of 03:24:00 [facility] HCV ANTIBODY 2022-08-22 Stone Obregon University of 03:24:00 [facility] HEPATITIS B CORE ANTIBODY IGM 2022-08-22 Stone Obregon iversity of 03:24:00 [facility] HAV ANTIBODY (IGG AND IGM) 2022-08-22 Stone Obregon rsity of 03:24:00 [facility] HEPATITIS C VIRUS (HCV) BY 2022-08-22 [facility] of QUANTITATIVE NAAT 03:24:00 [facility] EXTRA TUBE RED 2022-08-22 Palacios [facility] of 03:24:00 [facility] HB ECG ROUTINE & RHYTHM STRIP 2022-08-22 Stone Obregon iversity of 01:50:38 [facility] CBC W/PLT COUNT & AUTO 2021-12-[address] [facility] DIFFERENTIAL 04:28:00 [facility] (MANUAL DIFFERENTIAL) 2021-12-[address] [facility] 04:28:00 [facility] CBC W/PLT COUNT & AUTO 2021-12-[address] [facility] DIFFERENTIAL 04:28:00 [facility] COMPREHENSIVE METABOLIC PANEL 2021-12-28 Kay Alberto Siraj [facility] 04:28:00 [facility] MAGNESIUM 2021-12-[address] Chandan Albert[address] [facility] 04:28:00 [facility] XR CHEST 1 VIEW PORTABLE / BEDSIDE 2021-12-[address] [facility] 01:23:00 [facility] Center CBC (HEMOGRAM ONLY) 2021-12-27 Tiara, Marcel [facility] 03:38:00 [facility] Center BASIC METABOLIC PANEL 2021-12-27 Tiara[facility] 03:38[facility] US ABDOMEN LIMITED 2021-12-26 Tiara, Marcel [facility] 17:53:00 [facility] CBC (HEMOGRAM ONLY) 2021-12-26 Tiara, Marcel [facility] 04:34:00 [facility] BASIC METABOLIC PANEL 2021-12-26 Tiara, [facility] 04:34:00 [facility] Center MAGNESIUM 2021-12-26 Tiara, Marcel [facility] 04:34:00 [facility] CBC (HEMOGRAM ONLY) 2021-12-25 Tiara, Marcel [facility] 10:57:00 [facility] BASIC METABOLIC PANEL 2021-12-25 Tiara, [facility] 10:57:00 [facility] BASIC METABOLIC PANEL 2021-12-24 Tiara, Marcel [facility] 04:54:00 [facility] BASIC METABOLIC PANEL 2021-12-23 Nisnisan, Josier [facility] 04:39:00 [facility] MAGNESIUM 2021-12-23 Nisnisan, Josier [facility] 04:39:00 [facility] BASIC METABOLIC PANEL 2021-12-22 Nisnisan, Josier [facility] 06:13:00 [facility] MAGNESIUM 2021-12-22 Nisnisan, Josier [facility] 06:13:00 [facility] CBC (HEMOGRAM ONLY) 2021-12-22 Tiara, Marcel [facility] 06:13:00 [facility] BASIC METABOLIC PANEL 2021-12-21 Nisnisan, Josier [facility] 05:08:00 [facility] MAGNESIUM 2021-12-21 Nisnisan, Josier [facility] 05:08:00 [facility] CBC (HEMOGRAM ONLY) 2021-12-21 Tiara, Marcel [facility] 05:08:00 [facility] CBC W/PLT COUNT & AUTO 2021-12-20 Pongvachararak, [facility] DIFFERENTIAL 06:45:00 [facility] CBC W/PLT COUNT & AUTO 2021-12-20 Pongvachararak, [facility] DIFFERENTIAL 06:45:00 [facility] COMPREHENSIVE METABOLIC PANEL 2021-12-20 Pongvachararak[facility] 06:45:00 [facility] PREPARE LEUKO-REDUCED RBC 2021-12-[address] [facility] 23:54:00 [facility] CBC W/PLT COUNT & AUTO 2021-12-19 Pongvachararak, [facility] DIFFERENTIAL 05:52:00 [facility] CBC W/PLT COUNT & AUTO 2021-12-19 Estefany, [facility] DIFFERENTIAL 05:52:00 [facility] COMPREHENSIVE METABOLIC PANEL 2021-12-19 Estef[facility] 05:52:00 [facility] TRANSFUSE LEUKO-REDUCED RED BLOOD 2021-12-[address] [facility] CELLS 14:42:00 [facility] ABORH, MANUAL 2021-12-18 Ellis, Mobin [facility] 10:42:00 [facility] CBC W/PLT COUNT & AUTO 2021-12-18 Estefany, [facility] DIFFERENTIAL 06:21:00 [facility] HEPATIC FUNCTION PANEL 2021-12-18 Ayazk, [facility] 06:21:00 [facility] LIPID PANEL 2021-12-18 Estefany, [facility] 06:21:00 [facility] PROTHROMBIN TIME/INR 2021-12-[address] [facility] 06:21:00 [facility] CBC W/PLT COUNT & AUTO 2021-12-18 Estefany, [facility] DIFFERENTIAL 06:21:00 [facility] AMMONIA 2021-12-18 Estefany, [facility] 06:21:00 [facility] COMPREHENSIVE METABOLIC PANEL 2021-12-18 Estefany[facility] 06:21:00 [facility] TYPE AND SCREEN, AUTOMATED 2021-12-18 [facility] 06:21:00 [facility] EKG-SCANNED 2021-12-18 Provider, Default [facility] 00:00:00 Scanning [facility] Plan of Care Planned Activity Planned Date Details Comments Source Future Scheduled 2024-12-18 Lipid panel (procedure) [facility] Test 00:00:00 [code = 28386719] Medical Ce nter Future Scheduled 2024-12-18 Lipid panel (procedure) [facility] Test 00:00:00 [code = 24588789] Medical Ce nter Future Scheduled 2024-12-18 Lipid panel (procedure) [facility] Test 00:00:00 [code = 63016123] Medical Ce nter Future Scheduled 2024-12-18 Lipid panel (procedure) [facility] 00:00:00 [code = 29066873] Medical Ce nter Future Scheduled 2024-12-18 Lipid panel (procedure) [facility] 00:00:00 [code = 34149191] Medical Ce nter Future Scheduled 2024-12-18 Lipid panel (procedure) [facility] 00:00:00 [code = 41348177] Medical Ce nter Future Scheduled 2024-12-18 Lipid panel (procedure) [facility] 00:00:00 [code = 36329811] Medical Ce nter Future Scheduled 2024-12-18 Lipid panel (procedure) [facility] Test 00:00:00 [code = 90256006] Medical Ce nter Future Scheduled 2023-03-24 INFLUENZA [...] [facility] 00:00:00 [code = CT Colonography [facility] (combo)] Future Scheduled 1964 Screening for malignant [facility] Test 00:00:00 neoplasm of colon Medical Ce nter (procedure) [code = 112275859] Future Scheduled 1964 Screening for malignant [facility] Test 00:00:00 neoplasm of colon Medical Ce nter (procedure) [code = 818064895] Future Scheduled 1964 Screening for malignant [facility] Test 00:00:00 neoplasm of colon Medical Ce nter (procedure) [code = 244631677] Future Scheduled 1964 Screening for malignant [facility] Test 00:00:00 neoplasm of colon Medical Ce nter (procedure) [code = 535645160] Future Scheduled 1964 Sigmoidoscopy [code = [facility] Sigmoidoscopy] Medical Cente r Future Scheduled 1964 CT Colonography (combo) [facility] Test 00:00:00 [code = CT Colonography [facility] (combo)] Future Scheduled 1964 Screening for malignant [facility] Test 00:00:00 neoplasm of colon Medical Ce nter (procedure) [code = 261083557] Future Scheduled 1964 Screening for malignant [facility] Test 00:00:00 neoplasm of colon Medical Ce nter (procedure) [code = 239441525] Future Scheduled 1964 Screening for malignant [facility] Test 00:00:00 neoplasm of colon Medical Ce nter (procedure) [code = 746723981] Future Scheduled 1964 Screening for malignant [facility] Test 00:00:00 neoplasm of colon Medical Ce nter (procedure) [code = 911801052] Future Scheduled 1964 Sigmoidoscopy [code = [facility] 00:[facility] Sigmoidoscopy] Medical Cente r Future Scheduled 1964 CT Colonography (combo) [facility] Test 00:00:00 [code = CT Colonography [facility] (combo)] Future Scheduled 1964 Screening for malignant [facility] Test 00:00:00 neoplasm of colon Medical Ce nter (procedure) [code = 536437408] Future Scheduled 1964 Screening for malignant [facility] Test 00:00:00 neoplasm of colon Medical Ce nter (procedure) [code = 034863922] Future Scheduled 1964 Screening for malignant [facility] Test 00:00:00 neoplasm of colon Medical Ce nter (procedure) [code = 826858464] Future Scheduled 1964 Screening for malignant [facility] Test 00:00:00 neoplasm of colon Medical Ce nter (procedure) [code = 207558275] Future Scheduled 1964 Sigmoidoscopy [code = [facility] 00:00:[facility] Sigmoidoscopy] Medical Cente r Future Scheduled 1964 CT Colonography (combo) [facility] Test 00:00:00 [code = CT Colonography [facility] (combo)] Future Scheduled 1964 Screening for malignant [facility] Test 00:00:00 neoplasm of colon Medical Ce nter (procedure) [code = 866655482] Future Scheduled 1964 Screening for malignant [facility] Test 00:00:00 neoplasm of colon Medical Ce nter (procedure) [code = 460668844] Future Scheduled 1964 Screening for malignant [facility] Test 00:00:00 neoplasm of colon Medical Ce nter (procedure) [code = 220236528] Future Scheduled 1964 Screening for malignant [facility] Test 00:00:00 neoplasm of colon Medical Ce nter (procedure) [code = 835759761] Future Scheduled 1964 Sigmoidoscopy [code [facility] 00:[facility] Sigmoidoscopy] Medical Cente r Future Scheduled 1964 CT Colonography (combo) [facility] Test 00:00:00 [code = CT Colonography [facility] (combo)] Future Scheduled 1964 Screening for malignant [facility] Test 00:00:00 neoplasm of colon Medical Ce nter (procedure) [code = 652200521] Future Scheduled 1964 Screening for malignant [facility] Test 00:00:00 neoplasm of colon Medical Ce nter (procedure) [code = 868973623] Future Scheduled 1964 Screening for malignant [facility] Test 00:00:00 neoplasm of colon Medical Ce nter (procedure) [code = 823793531] Future Scheduled 1964 Screening for malignant [facility] Test 00:00:00 neoplasm of colon Medical Ce nter (procedure) [code = 625183004] Future Scheduled 1964 Sigmoidoscopy [code [facility] 00:00:[facility] Sigmoidoscopy] Medical Cente r Future Scheduled 1964 CT Colonography (combo) [facility] Test 00:00:00 [code = CT Colonography [facility] (combo)] Future Scheduled 1964 Screening for malignant [facility] Test 00:00:00 neoplasm of colon Medical Ce nter (procedure) [code = 421357589] Future Scheduled 1964 Screening for malignant [facility] Test 00:00:00 neoplasm of colon Medical Ce nter (procedure) [code = 540358042] Future Scheduled 1964 Screening for malignant [facility] Test 00:00:00 neoplasm of colon Medical Ce nter (procedure) [code = 289587285] Future Scheduled 1964 Screening for malignant [facility] Test 00:00:00 neoplasm of colon Medical Ce nter (procedure) [code = 828262865] Future Scheduled 1964 Sigmoidoscopy [code [facility] 00:00:[facility] Sigmoidoscopy] Medical Cente r Future Scheduled 1964 CT Colonography (combo) [facility] Test 00:00:00 [code = CT Colonography [facility] (combo)] Future Scheduled 1964 Screening for malignant [facility] Test 00:00:00 neoplasm of colon Medical Ce nter (procedure) [code = 288692629] Future Scheduled 1964 Screening for malignant [facility] Test 00:00:00 neoplasm of colon Medical Ce nter (procedure) [code = 875352160] Future Scheduled 1964 Screening for malignant [facility] Test 00:00:00 neoplasm of colon Medical Ce nter (procedure) [code = 749707355] Future Scheduled 1964 Screening for malignant [facility] Test 00:00:00 neoplasm of colon Medical Ce nter (procedure) [code = 911183910] Future Scheduled 1964 Sigmoidoscopy [code [facility] 00:00:[facility] Sigmoidoscopy] Medical Cente r Future Scheduled 1964 CT Colonography (combo) [facility] Test 00:00:00 [code = CT Colonography [facility] (combo)] Future Scheduled 1964 Screening for malignant [facility] Test 00:00:00 neoplasm of colon Medical Ce nter (procedure) [code = 086933839] Future Scheduled 1964 Screening for malignant [facility] Test 00:00:00 neoplasm of colon Medical Ce nter (procedure) [code = 225506551] Future Scheduled 1964 Screening for malignant [facility] Test 00:00:00 neoplasm of colon Medical Ce nter (procedure) [code = 449419221] Future Scheduled 1964 Screening for malignant [facility] Test 00:00:00 neoplasm of colon Medical Ce nter (procedure) [code = 927500598] Future Scheduled 1964 Sigmoidoscopy [facility]code [facility] 00:[facility] Sigmoidoscopy] Medical Yasmanye r Encounters Start End Encounter Admission Attending Care Care Encounter Source Date/Time Date/Time Type Type Clinicians Facility Department ID 2022-09-27 Inpatient TEXANA TEXANA [id number] [place] 08:40:44 [id number] [place] 2022-03-17 Inpatient TEXANA TEXANA [id number] [place] 08:41:23 [id number] [place] 2022-02-01 Inpatient TEXANA TEXANA [id number] [place] 10:02:35 [id number] [place] 2022-01-21 Inpatient TEXANA TEXANA [id number] [place] 12:27:16 [id number] [place] 2022-01-20 Inpatient TEXANA TEXANA [id number] [place] 08:13:32 [id number] [place] 2023-01-01 2023-01-01 Outpatient E NIDHI [facility] [id number] 334 [facility] 19:05:00 20:30:00 ANASTASIA Alexis [facility] 2022-12-26 2022-12-26 Emergency ER JULIUS, [facility] [id number] [place] 02:43:00 05:10:00 [facility] -[id number] [place] [facility] 2022-12-14 2022-12-19 Inpatient ER KAY ALBERTO [facility] Gastro [id number] SLS 12:33:00 14:45:00 2022-10-26 2022-10-26 Emergency ER JULIUS, [facility] D000 [id number] [place] 00:01:00 05:12:00 PRESTON -[id number] [facility] 2022-10-24 2022-10-24 [facility] [id number] [place] 00:39:00 07:00:00 [facility] -[id number] [facility] 2022-10-18 2022-10-18 Orders Doctor JUANITA 1.2.840.114 [id number] Univers 00:00:00 00:00:00 Only Unassigned, GERARDO 350.1.13.10 ity of [place] [facility] 4.2.7.2.686 [place] [id number] [address] 2022-10-07 2022-10-09 Outpatient U [facility] [id number] Univers 10:10:00 15:15:00 RUBEN heck of [facility] 2022-10-07 2022-10-09 Hospital Pardeep Moody Saw REYES 1.2. 840.114 [id number] [facility] 10:10:00 15:15:00 Encounter Ruben Conn 350.1.13 .10 ity of [facility] 4.2.7.2.686 [place] [id number] [facility] [address] 2022-09-28 2022-09-28 Emergency ER Julius [facility] D000 [id number] [place] 01:38:00 06:55:00 [place] -[id number] [facility] 2022-09-20 2022-09-20 Outpatient [facility] 120 [id number] [place] 00:00:00 00:00:00 _ANN [id number] [facility] 2022-09-15 2022-09-15 Outpatient [facility] 120 [id number] [place] 00:00:00 00:00:00 _ANN 24076 [facility] 2022-09-01 2022-09-01 Orders Doctor JUANITA 1.2.840.114 [id number] Univers 00:00:00 00:00:00 Only Unassigned, GERARDO 350.1.13.10 ity of [place] [facility] 4.2.7.2.686 [place] [phone] [facility] [address] 2022-08-25 2022-08-25 Transition TENNILLE Partida 1.2.840.114 [id number] Univers 00:00:00 00:00:00 of Care Tamara HOLBROOK 350.1.13.10 [place] [id number] [facility] [address] 2022-08-25 2022-08-25 Telephone AMY Nguyen 1.2.266.344 [id number] Univers 00:00:00 00:00:00 Maya CARRILLO 350.1.13.10 it y of HOSPITAL 4.2.7.2.686 [place] [id number] [facility] [address] 2022-08-21 2022-08-24 Inpatient U [facility] [id number] Univers 19:04:00 14:48:00 [facility]22-08-21 2022-08-24 [facility] Rivka Palacios 1. 2.840.114 [id number] Univers 19:04:00 14:48:00 Encounter Sujit VazquezTataWilian CARRILLO 350.1.13. 10 ity [facility] 4.2.7.2.686 [place] [phone] [place] [address] [address] 2022-06-08 2022-06-09 Outpatient E JEOVANY [facility] [id number] [place] 22:06:00 01:10:00 [facility] 2022-05-20 2022-05-20 Outpatient SFA [facility] [id number] [place] 09:20:24 09:20:24 [id number] [place] 2022-04-21 2022-04-21 Outpatient Nguyen_Tho NEHOP [facility] 1203 [place] 00:00:00 00:00:00 [id number] [facility] 2022-04-21 2022-04-21 Outpatient Nguyen_Tho MEHOP [facility] 1203 [place] 00:00:00 00:00:00 [id number] [facility] 2022-02-24 2022-02-24 Outpatient Nguyen_Tho MEHOP NEHOP 1203 [place] 00:00:00 00:00:00 [id number] [facility] 2021-12-18 2021-12-28 Inpatient ER KARIHSMA, CHANDANZOË [facility] Internal [id number] [facility] 03:17:00 14:00:00 Med 2021-12-18 2021-12-28 Hospital MOHINI [facility] [id number] [facility] [address] 03:17:00 14:00:00 Encounter Marcel Menjivar [facility] 2021-12-18 2021-12-18 Travel [facility] [id number] [facility] 00:00:00 00:00:00 [facility] 2019-03-27 2019-03-27 Outpatient E ADY CONN [facility] [id number] [facility] 09:29:00 10:45:00 [facility] Results Test Description Test Time Test [...] = GMID%) 15.6 % 0.0-10.0 H POCT-GLUCOSE [id number] 12:13:20 Test Item Value Reference Range Interpretation Comments POC-GLUCOSE METER 109 mg/dL 70-110 : TESTED A T [facility] 1317 (BEAKER) (test code [address], = 1538) [facility] 77 478: Management Information Systems Director/Techni ghassan ID = [id number] for Ruben Hayde mcgarry COMPREHENSIVE METABOLIC [id number] 06:45:36 Test Item Value Reference Range Interpretation [...] not appl icable for dialysis patien ts Management Information Systems Director ID - [id number] ID - CXZYRHJEN069Ibckjzoo ID - THZXAJEHV185Axahuiqk ID - CFCHPFZRK456Whoyxjed ID - XZOIFGQSU531Ieejaufl ID - JSNYFAQEP411Iagwpele ID - GZPMUEOSA694Grvoxyvm ID - QDQNXSMMZ898Qafacuqe ID - GBCJTJHKM618Rrespifg ID - EHPARQIGP154Remlwtrl ID - YDXNXQGUH300Iocyxkkb ID - FLIRYCNMG043Yjvtlwiy ID - DRGBFCDZJ700Jlmafhra ID - OYZHVQHOM538Dhyroehx ID - GJMNGKXMT584Haakrsnu ID -VXKGAOLOC043Thlnqmcp ID - LSUNDUBAH804Cuuxzyab ID - MTMOVXUUI347Tjskufrf ID - BQOESURCZ240PCLTBWY9216-47-74 06:07:46 Test Item Value Reference Range Interpretation Comments AMMONIA (BEAKER) (test code = 348) 49 mol/L 17-80 Management Information Systems Director ID - [id number] ID - [id number] ID - PZYTNEYLV058Msmvrqan ID - UNBPHNPFI053UZR W/PLT COUNT & AUTO DIFFERENTIAL 2022-12-19 05:59:52 [...] PERCENT (BEAKER) (test code = 2801) POCT-GLUCOSE [id number] 05:25:15 Test Item Value Reference Range Interpretation Comments POC-GLUCOSE METER 83 mg/dL 70-110 : TESTED A T [facility] 1317 (BEAKER) (test code = [facility], 1538) [facility] 77 8: Management Information Systems Director/Techni ghassan ID = [id number] for Franci Marvin POCT-GLUCOSE [id number] 18:04:57 Test Item Value Reference Range Interpretation Comments POC-GLUCOSE METER 106 mg/dL 70-110 : Notified RN/MD: [facility] (test code AT [facility] [address] = 1538) [place] [address]99268: Management Information Systems Director/Techni ghassan ID = [id number] for Ruben Bjorn mcgarry [id number] 17:10:56 Test Item Value Reference Range Interpretation Comments AMMONIA (BEAKER) (test 53 mol/L 17-80 Speci men slightly code = 348) hemolyzed Management Information Systems Director ID - DSENSONOperator ID - DSENSONOperator ID - DSENSONOperator ID - DSENSONPOCT-GLUCOSE [id number] 12:02:27 Test Item Value Reference Range Interpretation Comments POC-GLUCOSE METER 125 mg/dL 70-110 H : Notified RN/MD: TESTED (BEAKER) (test code AT [facility] [address] = 1538) [place] 899268: Management Information Systems Director/Techni ghassan ID = [id number] for Ruben Jessica mcgarryita BASIC METABOLIC [id number] 05:31:47 Test Item Value Reference Range Interpretation [...] not appl icable for dialysis patien ts Management Information Systems Director ID - LITOOperator ID - LITOOperator ID - LITOOperator ID - LITOOperator ID - LITOOperator ID - LITOOperator ID - LITOOperator ID - LITOOperator ID - LITOOperator ID - LITOOperator ID - LITOOperator ID - LITOOperator ID - LITOCBC W/PLT COUNT & AUTO [id number] 05:07:42 Test Item Value Reference Range Interpretation [...] (BEAKER) (test code = 2801) COMPREHENSIVE METABOLIC [id number] 07:47:57 Test Item Value Reference Range Interpretation [...] not appl icable for dialysis patien ts Management Information Systems Director ID - [id number] ID - BUGB02Mjondnqc ID - WWQO66Eksuhwdb ID - GCCF56Pibknumm ID - VGEC87Pnjjacjc ID - TJVZ38Fxcgtpwg ID - LKQF26Rkzkfmfm ID - ZYKG57Rioepmzz ID - BCMH68Ucokddoh ID - KHHP68Rmmdgsal ID - VCXY85Jjcmpagp ID - PZQN88Dlwxameo ID - VCXX09Oyzzaunm ID - MMWQ58Bvzmzujc ID - ZVKK53Ervcwmkj ID - [id number] 07:43:08 Test Item Value Reference Range Interpretation Comments MAGNESIUM (BEAKER) (test code = 1.4 mg/dL 1.5-3.0 L 627) Management Information Systems Director ID - [id number] ID - [id number] ID - SEPZ45Xbvffijy ID - [id number] CBC W/PLT COUNT & AUTO [id number] 07:29:00 Test Item Value Reference Range Interpretation [...] PERCENT (BEAKER) (test code = 2801) POCT-GLUCOSE [id number] 06:48:36 Test Item Value Reference Range Interpretation Comments POC-GLUCOSE METER 110 mg/dL 70-110 : TESTED A T [facility] 1317 (BEAKER) (test code [address], = 1538) [place] [address] 478: Management Information Systems Director/Techni ghassan ID = [id number] for phoenix Ferrer POCT-GLUCOSE [id number] 23:57:43 Test Item Value Reference Range Interpretation Comments POC-GLUCOSE METER 96 mg/dL 70-110 : TESTED A T [facility] 1317 (BEAKER) (test code = [address], 1538) [place] [address]88: Management Information Systems Director/Techni ghassan ID = [id number] for Yayo Morales POCT-GLUCOSE [id number] 17:04:49 Test Item Value Reference Range Interpretation Comments POC-GLUCOSE METER 111 mg/dL 70-110 H : TESTED A T [facility] 1317 (BEAKER) (test code [address], = 1538) [place] [address]33788: Management Information Systems Director/Techni ghassan ID = [id number] for Demond bryant Richa POCT-GLUCOSE [id number] 12:21:48 Test Item Value Reference Range Interpretation Comments POC-GLUCOSE METER 119 mg/dL 70-110 H : TESTED A T [facility] 1317 (BEAKER) (test code [address], = 1538) [place] [address]88: Management Information Systems Director/Techni ghassan ID = [id number] for Demond bryant Richa POCT-GLUCOSE [id number] 08:39:03 Test Item Value Reference Range Interpretation Comments POC-GLUCOSE METER 117 mg/dL 70-110 H : TESTED A T [facility] 1317 (BEAKER) (test code [address], = 1538) [place] [address]: Management Information Systems Director/Techni ghassan ID = [id number] for Richa Tinsley COMPREHENSIVE METABOLIC [id number] 05:36:17 Test Item Value Reference Range Interpretation [...] not appl icable for dialysis patien ts Management Information Systems Director ID - [id number] ID - HABL99Kpldttsq ID - PLPK03Ehpafvxr ID - XLWQ59Krfhhgec ID - KXXR23Pisffxgx ID - CEOY45Davaeudg ID - ONXF35Mkfwhmbk ID - EMNR10Jxjaacos ID - XDUS74Xtzetetb ID - OZGE17Mdackkiu ID - AEVE80Scklpqoo ID - ITAF98Besxxrpg ID - KPVL08Toqzcaeu ID - QETM65Pnjarllx ID - XFUH11Sstkgtzu ID - [id number] 05:35:46 Test Item Value Reference Range Interpretation Comments MAGNESIUM (BEAKER) (test code = 1.5 mg/dL 1.5-3.0 627) Management Information Systems Director ID - [id number] ID - BQFO67Jglsynyp ID - QCEL08Axhatrrq ID - [id number] CBC W/PLT COUNT & AUTO [id number] 05:32:21 Test Item Value Reference Range Interpretation [...] (BEAKER) (test code = 2801) COMPREHENSIVE METABOLIC [id number] 05:19:06 Test Item Value Reference Range Interpretation [...] high >=90 G2 Mildly decreased 60-89 G3a Mild ly to moderately 45-5 9 G3b Moderately to [...] not appl icable for dialysis patien ts Management Information Systems Director ID - LITOOperator ID - LITOOperator ID - LITOOperator ID - LITOOperator ID - LITOOperator ID - LITOOperator ID - LITOOperator ID - LITOOperator ID - LITOOperator ID - LITOOperator ID - LITOOperator ID - LITOOperator ID - LITOOperator ID - LITOOperator ID - LITOOperator ID - [id number] 05:17:37 Test Item Value Reference Range Interpretation Comments MAGNESIUM (BEAKER) (test code = 1.0 mg/dL 1.5-3.0 LL 627) Management Information Systems Director ID - LITOOperator ID - LITOOperator ID - LITOOperator ID - LITOCBC W/PLT COUNT & AUTO [id number] 04:44:06 Test Item Value Reference Range Interpretation [...] PERCENT (BEAKER) (test code = 2801) TROPONIN [id number] 00:14:07 Test Item Value Reference Range Interpretation [...] failure, acidosis, acute neurological disease, and persistent tachyarrhythmia.Management Information Systems Director ID - LITOURINALYSIS W/ LSRLBRSAKEP5258-66-90 00:03:35 Test Item Value Reference Range Interpretation [...] 1663) SOURCE(BEAKER) (test code = 2795) TROPONIN [id number] 17:04:20 Test Item Value Reference Range Interpretation [...] failure, acidosis, acute neurological disease, and persistent tachyarrhythmia.Management Information Systems Director ID - [id number] METABOLIC [id number] 16:58:17 Test Item Value Reference Range Interpretation [...] not appl icable for dialysis patien ts Management Information Systems Director ID - [id number] ID - AWXCWU059Vbporibo ID - XMLGXV093Luqfxmeb ID - ISQKFA335OppcgbzkBA - RSPQOM699Etgzdpsv ID - EXPHTX950Efdiamud ID - DZLSMY867Wpwphlwh ID - IKGXIJ861Wkgcmqoj ID - YDZJZW355Ncfoifea ID - GYLWSX547Ujrdmvgi ID - CHXWHJ801Iefuikaf ID - IMCYME276Amrzbtqy ID - SORRQG466Lbzjpboz ID - VYMWJH138Bxjpzhyz ID - WERHMH260Bxlzpana ID - MKSFJF964 [id number] 16:58:11 Test Item Value Reference Range Interpretation Comments MAGNESIUM (BEAKER) (test code = 1.2 mg/dL 1.5-3.0 L 627) Management Information Systems Director ID - [id number] ID - [id number] ID - QBRHCZ697Ggybzxop ID - LUZMZH942JQN W/PLT COUNT & AUTO [id number] 16:49:49 Test Item Value Reference Range Interpretation [...] NA (test code = 136 mmol/L 135-145 0026709751) K (test code = 3.6 mmol/L 3.5-5.0 6688589898) CL (test code = 107 mmol/L 98-108 8133014958) CO2 TOTAL (test code = 25 mmol/L 23-31 1312488347) AGAP (test code = 4 2-16 5464944890) BUN (test code = 10 mg/dL 7-23 7706022909) GLUCOSE (test code = 101 mg/dL 70-110 6936672687) CREATININE (test code = 0.73 mg/dL 0.60-1.25 2615122527) CALCIUM (test code = 7.6 mg/dL 8.6-10.6 L 0117780881) eGFR (test code = 110.7 mL/min/1.73m2 8040258390) TERESA (test code = TERESA) Association of [...] tests). Lab Interpretation Abnormal (test code = 23434-4) [facility]:07[facility]02 Test Item Value Reference Range Interpretation Comments MAGNESIUM (test code = 0163328316) 1.6 mg/dL 1.7-2.4 L Lab Interpretation (test code = Abnormal 58331-3) [facility]28144[facility] (ALB,T.PRO,BILI T,BU/BC,ALT,AST,ALK PHOS)2022-10-09 11:07:02 Test Item Value Reference Range Interpretation Comments TOTAL BILI (test code = 4116596409) 1.4 mg/dL 0.1-1.1 H BILI UNCON (test code = 7140111446) 0.5 mg/dL 0.1-1.1 BILI CONJ (test code = 7686304012) 0.0 mg/dL 0.0-0.3 T PROTEIN (test code = 8302994058) 7.2 g/dL 6.3-8.2 ALBUMIN (test code = 0456934153) 2.9 g/dL 3.5-5.0 L ALK PHOS (test code = 1354351483) 70 U/L 34-122 ALTv (test code = 1742-6) 36 U/L 5-50 AST(SGOT) (test code = 0851387567) 99 U/L 13-40 H Lab Interpretation (test code = Abnormal 93287-2) [facility] / [id number] 10:41:05 Test Item Value Reference Range Interpretation Comments PROTIME PATIENT (test 15.4 See_Comment H [Auto mated message] code = 5964-2) The system [employer] generated this result transmitted ref erence range: 10.1 - 1 2.6 Seconds. The reference range was not used to int erpret this result as normal/abnormal . INR (test code = 6301-6) 1.4 Nor mal INR <1.1; Warfarin Therap eutic range 2.0 to 3. 0 or 2.5 to 3.5, dep ending upon the indica tions. Lab Interpretation (test Abnormal code = 33907-4) [facility] WITH [id number] 10:35:00 Test Item Value Reference Range Interpretation Comments WBC (test code = 6.14 See_Comment [Automated 6690-2) message] The sy stem [...] (test code = 62.5 fL 38.5-51.6 H 67866-6) RDW-CV (test code = 18.5 % 12.1-15.4 H 788-0) PLT (test code = 102 See_Comment L [Automated 777-3) message] The sy stem which generated this result transmitted reference range : 150 - 328 10*3/ ?L. The reference r geri was not used to interpret this result as normal/abnormal . MPV (test code = 10.6 fL 9.8-13.0 01842-6) NRBC/100 WBC (test 0.0 See_Comment [Automat ed code = 3658159135) message] The system which generated this result transmitted reference range : 0.0 - 10.0 /100 WBCs. The refer ence range was not u sed to interpret th is result as normal/abnormal . NRBC x10^3 (test code See_Comment [Auto mated = 9867664224) message] The s ystem which generated this result transmitted reference range : 10*3/?L. The reference range was not used to interpret this result as normal/abnormal . GRAN MAT (NEUT) % 52.9 % (test code = 770-8) IMM GRAN % (test code 0.30 % = 2360016399) LYMPH % (test code = 25.1 % 736-9) MONO % (test code = 16.0 % 5905-5) EOS % (test code = 4.1 % 713-8) BASO % (test code = 1.6 % 706-2) GRAN MAT x10^3(ANC) 3.25 10*3/uL 1.99-6.95 (test code = 0447220417) IMM GRAN x10^3 (test 0.00-0.06 code = 5034280622) LYMPH x10^3 (test code 1.54 10*3/uL 1.09-3.23 = 731-0) MONO x10^3 (test code 0.98 10*3/uL 0.36-1.02 = 742-7) EOS x10^3 (test code = 0.25 10*3/uL 0.06-0.53 711-2) BASO x10^3 (test code 0.10 10*3/uL 0.01-0.09 H = 704-7) Lab Interpretation Abnormal (test code = 30580-0) [facility]69703[facility] (ALB,T.PRO,BILI T,BU/BC,ALT,AST,ALK PHOS)2022-10-08 14:50:02 Test Item Value Reference Range Interpretation Comments TOTAL BILI (test code = 9934570191) 1.3 mg/dL 0.1-1.1 H BILI UNCON (test code = 5655828259) 0.7 mg/dL 0.1-1.1 BILI CONJ (test code = 8528068156) 0.0 mg/dL 0.0-0.3 T PROTEIN (test code = 9743305420) 6.8 g/dL 6.3-8.2 ALBUMIN (test code = 2349550580) 3.0 g/dL 3.5-5.0 L ALK PHOS (test code = 0661822822) 96 U/L 34-122 ALTv (test code = 1742-6) 35 U/L 5-50 AST(SGOT) (test code = 5571428559) 106 U/L 13-40 H Lab Interpretation (test code = Abnormal 65947-4) [facility] WITH [id number] 11:09:50 Test Item Value Reference Range Interpretation [...] (test code = 63.6 fL 38.5-51.6 H 68357-8) RDW-CV (test code = 19.2 % 12.1-15.4 H 788-0) PLT (test code = 107 See_Comment L [Automated 777-3) message] The sy stem which generated this result transmitted reference range : 150 - 328 10*3/ ?L. The reference r geri was not used to interpret this result as normal/abnormal . MPV (test code = 10.1 fL 9.8-13.0 77688-1) IPF % (test code = 4.4 % 1.2-10.7 Platelet count 5245069599) measured by fluorescence method. NRBC/100 WBC (test 0.0 See_Comment [Automat ed code = 9954327383) message] The system which generated this result transmitted reference range : 0.0 - 10.0 /100 WBCs. The refer ence range was not u sed to interpret th is result as normal/abnormal . NRBC x10^3 (test code See_Comment [Auto mated = 2267670554) message] The s ystem which generated this result transmitted reference range : 10*3/?L. The reference range was not used to interpret this result as normal/abnormal . GRAN MAT (NEUT) % 46.8 % (test code = 770-8) IMM GRAN % (test code 0.30 % = 4989061270) LYMPH % (test code = 31.5 % 736-9) MONO % (test code = 16.6 % 5905-5) EOS % (test code = 3.4 % 713-8) BASO % (test code = 1.4 % 706-2) GRAN MAT x10^3(ANC) 3.05 10*3/uL 1.99-6.95 (test code = 1548128517) IMM GRAN x10^3 (test 0.00-0.06 code = 3031404797) LYMPH x10^3 (test code 2.05 10*3/uL 1.09-3.23 = 731-0) MONO x10^3 (test code 1.08 10*3/uL 0.36-1.02 H = 742-7) EOS x10^3 (test code = 0.22 10*3/uL 0.06-0.53 711-2) BASO x10^3 (test code 0.09 10*3/uL 0.01-0.09 = 704-7) Lab Interpretation Abnormal (test code = 49180-2) [facility] METABOLIC PANEL (NA, K, CL, CO2, GLUCOSE, BUN, CREATININE, CA)2022-10-08 11:01:09 Test Item Value Reference Range Interpretation Comments NA (test code = 137 mmol/L 135-145 7091798515) K (test code = 4.0 mmol/L 3.5-5.0 9824944964) CL (test code = 105 mmol/L 98-108 3767932676) CO2 TOTAL (test code = 28 mmol/L 23-31 5420473958) AGAP (test code = 4 2-16 5951479083) BUN (test code = 12 mg/dL 7-23 3631193949) GLUCOSE (test code = 112 mg/dL 70-110 H 8669485837) CREATININE (test code = 0.87 mg/dL 0.60-1.25 1134699925) CALCIUM (test code = 7.8 mg/dL 8.6-10.6 L 5249432479) eGFR (test code = 90.4 mL/min/1.73m2 0098913770) TERESA (test code = TERESA) Association of [...] tests). Lab Interpretation Abnormal (test code = 63851-8) [facility]09 Test Item Value Reference Range Interpretation Comments MAGNESIUM (test code = 5722750966) 1.4 mg/dL 1.7-2.4 L Lab Interpretation (test code = Abnormal 04068-6) [facility] METABOLIC PANEL (NA, K, CL, CO2, GLUCOSE, BUN, CREATININE, CA)2022-08-23 08:22:04 Test Item Value Reference Range Interpretation Comments NA (test code = 135 mmol/L 135-145 9740238012) K (test code = 3.6 mmol/L 3.5-5.0 6570846445) CL (test code = 104 mmol/L 98-108 5558627053) CO2 TOTAL (test code = 26 mmol/L 23-31 0332783992) AGAP (test code = 5 2-16 7162794330) BUN (test code = 12 mg/dL 7-23 7168382524) GLUCOSE (test code = 120 mg/dL 70-110 H 9264496811) CREATININE (test code = 1.00 mg/dL 0.60-1.25 7563864839) CALCIUM (test code = 7.3 mg/dL 8.6-10.6 L 8461243530) eGFR (test code = 77.0 mL/min/1.73m2 8147256565) TERESA (test code = TERESA) Association of [...] tests). Lab Interpretation Abnormal (test code = 14825-2) [facility]22:04 Test Item Value Reference Range Interpretation Comments MAGNESIUM (test code = 7850187376) 1.6 mg/dL 1.7-2.4 L Lab Interpretation (test code = Abnormal 68477-2) [facility] WITH [id number] 08:21:28 Test Item Value Reference Range Interpretation [...] (test code = 52.6 fL 38.5-51.6 H 39154-1) RDW-CV (test code = 17.2 % 12.1-15.4 H 788-0) PLT (test code = 101 See_Comment L [Automated 777-3) message] The sy stem which generated this result transmitted reference range : 150 - 328 10*3/ ?L. The reference r geri was not used to interpret this result as normal/abnormal . MPV (test code = 10.5 fL 9.8-13.0 04560-9) IPF % (test code = 6.6 % 1.2-10.7 Platelet count 0077973680) measured by fluorescence method. NRBC/100 WBC (test 0.4 See_Comment [Automat ed code = 7802666917) message] The system which generated this result transmitted reference range : 0.0 - 10.0 /100 WBCs. The refer ence range was not u sed to interpret th is result as normal/abnormal . NRBC x10^3 (test code 0.03 See_Comment [Auto mated = [id number]) message] The s ystem which generated this result transmitted reference range : 10*3/?L. The reference range was not used to interpret this result as normal/abnormal . GRAN MAT (NEUT) % 55.7 % (test code = 770-8) IMM GRAN % (test code 0.40 % = 6015307675) LYMPH % (test code = 24.0 % 736-9) MONO % (test code = 16.7 % 5905-5) EOS % (test code = 1.6 % 713-8) BASO % (test code = 1.6 % 706-2) GRAN MAT x10^3(ANC) 3.95 10*3/uL 1.99-6.95 (test code = [id number]) IMM GRAN x10^3 (test 0.03 10*3/uL 0.00-0.06 code = 7130298232) LYMPH x10^3 (test code 1.70 10*3/uL 1.09-3.23 = 731-0) MONO x10^3 (test code 1.18 10*3/uL 0.36-1.02 H = 742-7) EOS x10^3 (test code = 0.11 10*3/uL 0.06-0.53 711-2) BASO x10^3 (test code 0.11 10*3/uL 0.01-0.09 H = 704-7) Lab Interpretation Abnormal (test code = 19076-0) [facility] NAAT 2022-08-22 22:28:25 Test Item Value Reference Range Interpretation Comments HCV Quantitative NAAT 5.28 Not Detected log - log IU/mL (test code IU/mL = 77989-3) HCV Quantitative NAAT 794093 Not Detected - IU/mL (test code = IU/mL 52680-5) HCV Quantitative Detected Not Detected A Interpretation (test code = 3181289164) TERESA (test code = TERESA) The Aptima HCV Quant Dx assay is an FDA-approved real-time virtual classroom manager-mediated amplification (TMA) test used for both detection [...] indicated. Lab Interpretation Abnormal (test code = 77000-2) [facility] ([facility]), 1 Units 2022-08-22 10:17:48 Test Item Value Reference Range Interpretation Comments Cross Match Result Compatible (test code = 4409) ISBT Blood Type Code 5100 (test code = 643578) Unit Blood Type (test O Pos code = 4410) Unit Number (test [id number] code = 4411) Blood Expiration Date & Time (test code = 501735) Status Information Issued (test code = 4412) Product Red Blood Cells Identification (test code = 4413) Product Code (test Z7989Y14 Performed at [facility] code = 4414) Laboratory Services - [facility] Blood [address]Enrique gann [address]Yvqt Free: [phone] A No. [id number] [facility]2022-08-22 10:05:36 Test Item Value Reference Range Interpretation Comments POCT GLU (test code = [id number]) 98 mg/dL 70-110 Lab Interpretation (test code = Normal 88959-3) [facility] [id number] 09:07:59 Test Item Value Reference Interpretation Comments Range TROPONIN I (test 0.005 ng/mL See_Comment [Automated code = 9428706561) message] The system which generated this result [...] biotin. Lab Interpretation Normal (test code = 20109-1) [facility] Metabolic Panel (NA, K, CL, CO2, GLUCOSE, BUN, CREATININE, CA)2022-08-22 08:55:20 Test Item Value Reference Range Interpretation Comments NA (test code = 140 mmol/L 135-145 4104258656) K (test code = 3.8 mmol/L 3.5-5.0 9919168100) CL (test code = 110 mmol/L 98-108 H 8547738750) CO2 TOTAL (test code = 21 mmol/L 23-31 L 6474974550) AGAP (test code = 9 2-16 6262354341) BUN (test code = 11 mg/dL 7-23 5316581889) GLUCOSE (test code = 58 mg/dL 70-110 L 9912786019) CREATININE (test code = 0.81 mg/dL 0.60-1.25 0289054175) CALCIUM (test code = 7.7 mg/dL 8.6-10.6 L 6549847399) eGFR (test code = 98.2 mL/min/1.73m2 9013102031) TERESA (test code = TERESA) Association of [...] tests). Lab Interpretation Abnormal (test code = 40977-7) [facility]HEPAT[facility] FUNCTION PANEL (83836) (ALB,T.PRO,BILI T,BU/BC,ALT,AST,ALK PHOS)2022-08-22 08:55:20 Test Item Value Reference Range Interpretation Comments TOTAL BILI (test code = 7095786596) 1.2 mg/dL 0.1-1.1 H BILI UNCON (test code = 2407141516) 0.3 mg/dL 0.1-1.1 BILI CONJ (test code = 9340140043) 0.0 mg/dL 0.0-0.3 T PROTEIN (test code = 7551385959) 7.3 g/dL 6.3-8.2 ALBUMIN (test code = 0364516537) 3.0 g/dL 3.5-5.0 L ALK PHOS (test code = 7564398912) 84 U/L 34-122 ALTv (test code = 1742-6) 31 U/L 5-50 AST(SGOT) (test code = 6346777919) 93 U/L 13-40 H Lab Interpretation (test code = Abnormal 62644-7) [facility] HospitalABORH Confirmation (Lab Only)2022-08-22 08:27:46 Test Item Value Reference Range Interpretation Comments ABO & RH (test code O Positive Performe d at [facility] = 20) Laboratory Serv [facility] Blood [address] s [address]Zjln Free: [phone] A No. [id number] [facility] HospitalType and Screen - ONCE [id number] 07:42:14 Test Item Value Reference Range Interpretation Comments ABO & RH (test code O POSITIVE Performe d at [facility] = 20) Laboratory Serv [facility] Blood [facility] [place] [address] s [address]Zbpe Free: [phone] A No. [id number] IAT (test code = Negative Performed a t [facility] 1185) Laboratory Serv [facility] Blood [facility] [place] [address] s [address]Aanf Free: [phone] A No. [id number] [facility] HospitalFOLATE2023-01-30 07:00:54 Test Item Value Reference Range Interpretation Comments FOLATE SER (test code = 1369994550) 9.3 ng/mL 3.0-20.0 Lab Interpretation (test code = Normal 28870-8) [facility] HospitalHCV [id number] 05:36:54 Test Item Value Reference Range Interpretation Comments HCV Ab (test code = Positive 98749-0) HCV 27.90 Semi-Quantitative (test code = 44866-0) APRI (test code = 1.750 4261959795) TERESA (test code = Positive for HCV antibody. TERESA) This specimen has been reflexed to qualitative PCR test and submitted to [facility]. ?A report will be issued by that laboratory. ?If any questions, contact the Clinical Chemistry Director information security architect at [phone].APRI score < 0.5: Suggestive of little to no fibrosisAPRI score > 1.5: Suggestive of moderate to severe fibrosisAPRI score > 2.0: Highly suggestive of cirrhosis. [facility] HospitalHEPATITIS B SURFACE [id number] 05:33:54 Test Item Value Reference Range Interpretation Comments HBsAB (test code = Negative 3338657511) HBsAb 0.00 mIU/mL Semi-Quantitative (test code = 2897478500) TERESA (test code = Interpretation: TERESA) ?Hepatitis B Surface Antibody ? Negative - Patient is considered to be not immune to infection with HBV. ? ? Positive - Anti-HBs detected at greater than or equal to 12 mIU/mL. ?Patient is considered to be immune to infection with HBV. ? [facility] HospitalIRON [id number] 04:52:12 Test Item Value Reference Range Interpretation Comments IRON (test code = 7526479079) 20 ug/dL 50-160 L TIBC (test code = 8163372471) 486 ug/dL 250-410 H % FE SAT (test code = 5334579870) 4 % 20-50 L Lab Interpretation (test code = Abnormal 35156-4) [facility] HospitalSALICYLATE2023-01-30 04:44:00 SALICYLATE<10mg/L08/21/2022 10:44 PM [facility]MB LABORATORY SERVICESTherapeutic Range: ? Analgesic and Antipyretic Use ? 20-100 mg/L ? ? Anti- Inflammatory Use ? 100-250 mg/L Toxic Range: ? Greater than 300 mg/LUnBig Bend Regional Medical CenterACETAMINOPHEN 2022-08-22 04:43:55 Test Item Value Reference Range Interpretation Comments ACETAMINOP (test code = 10.0-30.0 L 3910807460) TERESA (test code = TERESA) Toxic: Greater than 200 ug/mL @ 4 hour post ingestion or greater than 50 ug/mL @ 12 hour post ingestion Lab Interpretation (test Abnormal code = 90417-7) [facility] HospitalVITAMIN B12, [id number] 04:38:09 Test Item Value Reference Range Interpretation Comments VIT B12 (test code = 524 pg/mL 240-930 2766744887) TERESA (test code = TERESA) Biotin has been reported to cause a positive bias, interpret results relative to patient's use of biotin. Lab Interpretation (test Normal code = 26773-7) [facility] HospitalHAV ANTIBODY (IGG AND IGM)2022-08-22 04:34:23 Test Item Value Reference Range Interpretation Comments HAV Total (test code Positive = 5626451882) HAVT 0.01 Semi-Quantitative (test code = 8393846674) TERESA (test code = TERESA) Indicates past or present infection with HAV or exposure to HAV due to vaccination. [facility] HospitalFERRITIN [id number] 04:31:12 Test Item Value Reference Range Interpretation Comments FERRITIN (test code = 8.0 ng/mL 18.0-464.0 L 8467981602) TERESA (test code = TERESA) Biotin has been reported to cause a negative bias, interpret results relative to patient's use of biotin. Lab Interpretation (test Abnormal code = 35855-5) [facility] HospitalHEPATITIS B CORE ANTIBODY [id number] 04:23:10 Test Item Value Reference Range Interpretation Comments HBCM 0.05 Semi-Quantitative (test code = 64394-4) TERESA (test code = Biotin has been reported TERESA) to cause a negative bias, interpret results relative to patient's use of biotin. [facility] HospitalHEPATITIS B SURFACE [id number] 04:18:09 Test Item Value Reference Range Interpretation Comments HBsAg Semi-Quantitative (test code = 0.05 Negative 5195-3) [facility] HospitalACTIVATED PARTIAL THRMPLAS [id number] 04:17:29 Test Item Value Reference Range Interpretation Comments APTT Patient (test code 47 See_Comment H [Au tomated message] = 0753-2) The system whic h generated this result transmitted ref erence range: 26 - 36 Seconds. The reference range was not used to int erpret this result as normal/abnormal . Lab Interpretation (test Abnormal code = 01691-7) [facility] HospitalProthrombin Time / [id number] 04:17:29 Test Item Value Reference Range Interpretation Comments PROTIME PATIENT (test 21.3 See_Comment H [Auto mated message] code = 5964-2) The system [facility] generated this result transmitted ref erence range: 10.1 - 1 2.6 Seconds. The reference range was not used to int erpret this result as normal/abnormal . INR (test code = 6301-6) 1.9 Nor mal INR <1.1; Warfarin Therap eutic range 2.0 to 3. 0 or 2.5 to 3.5, dep ending upon the indica tions. Lab Interpretation (test Abnormal code = 83259-1) [facility] HospitalETHANOL2023-01-30 04:10:05 Test Item Value Reference Range Interpretation Comments ALCOHOL (test code = 89 mg/dL 0502704354) TERESA (test code = Toxic Greater than or TERESA) equal to 80 mg/dL. NOTE: Whole blood values are approximately 10% to 15% lower than serum and plasma. [facility] HospitalGLYCOSYLATED HEMOGLOBIN (A1C)2022-08-22 04:08:35 Test Item Value Reference Range Interpretation Comments HGB A1C (test code = 5.3 % 4.0-5.7 4548-4) TERESA (test code = TERESA) Reference RangesNormal: <5.7%Prediabetes: 5.7 - 6.4%Diabetes: > 6.5% Lab Interpretation (test Normal code = 12246-1) [facility] HospitalTROPONIN [id number] 04:00:07 Test Item Value Reference Interpretation Comments Range TROPONIN I (test 0.005 ng/mL See_Comment [Automated code = 9631792208) message] The system which generated this result [...] biotin. Lab Interpretation Normal (test code = 52846-1) [facility] HospitalLIPID PANEL (55857)(TOTAL CHOLESTEROL, TRIGLYCERIDES, HDL)2022-08-22 03:48:09 Test Item Value Reference Range Interpretation Comments CHOL (test code = 84 mg/dL 120-200 L 6421613331) HDL (test code = 23 mg/dL See_Comment L [Automated message] 1212597393) The system Managed by Q generated this result transmitted ref erence range: >=40. Th e reference range was not used to int erpret this result as normal/abnormal . HDLC RATIO (test code = 3.7 See_Comment [Au tomated message] 7090127920) The system Managed by Q generated this result transmitted ref erence range: <=5.0. T he reference range was not used to int erpret this result as normal/abnormal . TRIG (test code = 85 mg/dL 30-170 0435684996) LDL CHOL (test code = 44 mg/dL See_Comment [Auto mated message] 38388-6) The system Managed by Q generated this result transmitted ref erence range: <=160. T he reference range was not used to int erpret this result as normal/abnormal . VLDL (test code = 17 mg/dL 5-60 5183175411) Lab Interpretation (test Abnormal code = 22907-4) [facility] HospitalBASI METABOLIC PANEL (NA, K, CL, CO2, GLUCOSE, BUN, CREATININE, CA)2022-08-22 03:47:29 Test Item Value Reference Range Interpretation Comments NA (test code = 141 mmol/L 135-145 6668678521) K (test code = 3.9 mmol/L 3.5-5.0 8235489388) CL (test code = 109 mmol/L 98-108 H 3740566563) CO2 TOTAL (test code = 24 mmol/L 23-31 0231102917) AGAP (test code = 8 2-16 1713347430) BUN (test code = 11 mg/dL 7-23 8469370911) GLUCOSE (test code = 98 mg/dL 70-110 4843148162) CREATININE (test code = 0.74 mg/dL 0.60-1.25 2617819956) CALCIUM (test code = 7.8 mg/dL 8.6-10.6 L 1613134643) eGFR (test code = 109.0 mL/min/1.73m2 4392154365) TERESA (test code = TERESA) Association of [...] tests). Lab Interpretation Abnormal (test code = 11687-8) [facility] HospitalHEPATIC FUNCTION PANEL (41376) (ALB,T.PRO,BILI T,BU/BC,ALT,AST,ALK PHOS)2022-08-22 03:47:29 Test Item Value Reference Range Interpretation Comments TOTAL BILI (test code = 4673880669) 1.1 mg/dL 0.1-1.1 BILI UNCON (test code = 1167492031) 0.3 mg/dL 0.1-1.1 BILI CONJ (test code = 2456851829) 0.0 mg/dL 0.0-0.3 T PROTEIN (test code = 6498847391) 7.3 g/dL 6.3-8.2 ALBUMIN (test code = 1870950308) 3.0 g/dL 3.5-5.0 L ALK PHOS (test code = 5689888929) 83 U/L 34-122 ALTv (test code = 1742-6) 31 U/L 5-50 AST(SGOT) (test code = 3618425102) 77 U/L 13-40 H Lab Interpretation (test code = Abnormal 59645-9) [facility] HospitalMAGNESIUM2023-01-30 03:47:29 Test Item Value Reference Range Interpretation Comments MAGNESIUM (test code = 5411307355) 1.5 mg/dL 1.7-2.4 L Lab Interpretation (test code = Abnormal 61740-2) [facility] WITH [id number] 03:36:26 Test Item Value Reference Range Interpretation Comments WBC (test code = 6.22 See_Comment [Automated 6690-2) message] The sy stem which generated this result transmitted reference range : 4.20 - 10.70 10*3/?L. The reference range was not used to interpret this result as normal/abnormal . RBC (test code = 2.67 See_Comment L [Automated 989-8) message] The sy stem which generated this [...] (test code = 53.3 fL 38.5-51.6 H 77149-1) RDW-CV (test code = 17.7 % 12.1-15.4 H 788-0) PLT (test code = 110 See_Comment L [Automated 777-3) message] The sy stem which generated this result transmitted reference range : 150 - 328 10*3/ ?L. The reference r geri was not used to interpret this result as normal/abnormal . MPV (test code = 10.7 fL 9.8-13.0 59106-6) NRBC/100 WBC (test 0.3 See_Comment [Automat ed code = 7786438981) message] The system which generated this result transmitted reference range : 0.0 - 10.0 /100 WBCs. The refer ence range was not u sed to interpret th is result as normal/abnormal . NRBC x10^3 (test code 0.02 See_Comment [Auto mated = 4047334143) message] The s ystem which generated this result transmitted reference range : 10*3/?L. The reference range was not used to interpret this result as normal/abnormal . GRAN MAT (NEUT) % 52.5 % (test code = 770-8) IMM GRAN % (test code 0.60 % = 4187719056) LYMPH % (test code = 25.6 % 736-9) MONO % (test code = 18.0 % 5905-5) EOS % (test code = 1.0 % 713-8) BASO % (test code = 2.3 % 706-2) GRAN MAT x10^3(ANC) 3.27 10*3/uL 1.99-6.95 (test code = 7401483777) IMM GRAN x10^3 (test 0.04 10*3/uL 0.00-0.06 code = 4170655620) LYMPH x10^3 (test code 1.59 10*3/uL 1.09-3.23 = 731-0) MONO x10^3 (test code 1.12 10*3/uL 0.36-1.02 H = 742-7) EOS x10^3 (test code = 0.06 10*3/uL 0.06-0.53 711-2) BASO x10^3 (test code 0.14 10*3/uL 0.01-0.09 H = 704-7) Lab Interpretation Abnormal (test code = 31745-7) [facility] HospitalXR ANKLE RIGHT COMPLETE 3 VIEWS *[id number] 22:56:41[facility] : 1965 Sex: MLocation H 31Ex am:Right [...] by: Kate Stover MD 06/08/2022 10:56 PM HAND TENNIS BALL COVERER W orkstation: [id number] LEG RIGHT LOWER/TIB-FIB AP&LAT *OW*2022-06-08 22:56:41[facility] : 1965 Sex: MLocation [...] by: Kate Stover MD 06/08/2022 10:56 PM HAND TENNIS BALL COVERER W orkstation: [id number] (INCLUDES AUTOMATED DIFFERENTIAL) *2022-06-08 22:51:00 Test Item [...] 0.0-10.0 H RAD, CHEST, 1 VIEW, NON [id number] 13:32:00Reason for exam:- >pneumoniaShould this be performed at the bedside?->Yes [facility] : 1965 Sex: MFINAL REPORT [...] the appropriate clinical setting. Signed: Stephen Messer Verified Date/Time: 12/28/2021 13:32:10 Reading Location: [facility] Radiology Reading Room (MANUAL DIFFERENTIAL)2021-12-28 05:33:48 [...] few 965) CBC W/PLT COUNT & AUTO SELHCPUOVVUN5143-64-17 05:33:47 Test Item Value Reference Range Interpretation [...] (BEAKER) (test code = 2801) COMPREHENSIVE METABOLIC [id number] 05:32:30 Test Item Value Reference Range Interpretation [...] S NOT APPLICABLE FOR DIALYSIS PATIEN TS. Management Information Systems Director ID - [id number] ID - AYDIZCAMB116Fwzqjmdz ID - HRZYNGMTY398Bfakypbw ID - JANSEGZHP871Rmzzcoai ID - KOWJVIDKW313Bkceiirs ID - MBIATCYCJ797Hqteufmt ID - XCORRWVEC033Epvrlnje ID - NEEWIGSDN041Iffnyfjw ID - OZHIWJGCY752Ngdfdkui ID - CVLDJNFKH156Icslcuyd ID - SVOVEGGQX654Bezeirku ID - PHUJGCDAD879Emzvzjtj ID - UBYJVTRIT787Scvaiijj ID - MWNUHDBNC044Gxizerec ID - YFXQVIUIP349Owicmqrm ID -BZXKIVQVC947LGAGTYRQC5721-07-27 05:30:12 Test Item Value Reference Range Interpretation Comments MAGNESIUM (BEAKER) (test code = 1.2 mg/dL 1.5-3.0 L 627) Management Information Systems Director ID - [id number] ID - AEBUHHPES949Iyxkntza ID - EPDVVCDNV717Kgliuham ID - EBXQWNTCD561PCVQU METABOLIC [id number] 05:44:01 Test Item Value Reference Range Interpretation [...] S NOT APPLICABLE FOR DIALYSIS PATIEN TS. Management Information Systems Director ID - [id number] ID - FSZG10Rdrehxmo ID - UJOM57Glemrram ID - SYNM35Bcnihppy ID - WVFA90Kgthxicm ID - YTHM97Vlunujzf ID - HXNK81Obyrhcny ID - PKLY48Wwudyicl ID - JYPV59Oxbjacbk ID - WEDY47Hdgkppou ID - DDBY50Dgzkjgnr ID - ZMUR62Zcfazqvo ID - [id number] (HEMOGRAM ONLY)2021-12-27 05:26:40 Test Item Value Reference [...] (BEAKER) (test code = 413) U/S, ABDOMINAL, SNVWIYV4737-02-64 03:53:00Abdomen limited area? Add comment if clarification is needed.->LiverReason for exam:->Liver cirrhosis [facility] : 1965 Sex: MFINAL [...] MDReport Verified Date/Time: 12/27/2021 03:53:38 BASIC METABOLIC [id number] 05:41:36 Test Item Value Reference Range Interpretation [...] S NOT APPLICABLE FOR DIALYSIS PATIEN TS. Management Information Systems Director ID - [id number] ID - LKUJPKTUG941Tmahwebn ID - BLGDRZWUK698Mqflfvep ID - QHTODKPFP329Uqlqxslt ID - ICILXWROJ232Qsvpiapm ID - RIMMURJZH798Yffzsmys ID - JEBGRIEXS442Meyryzrm ID - ZTSPZXAUL132Cfpwzhvz ID - MFLGFEAVW945Njdcsfxi ID - TULZRCJSN190YRRQJQOJR2322-40-85 05:36:42 Test Item Value Reference Range Interpretation Comments MAGNESIUM (BEAKER) (test code = 1.3 mg/dL 1.5-3.0 L 627) Management Information Systems Director ID - [id number] ID - RLOUDFBGU055Ndfvpbqm ID - VCWWJTUZB912Cpdhbbbx ID - [id number] (HEMOGRAM ONLY)2021-12-26 05:31:48 Test Item Value Reference [...] (BEAKER) (test code = 413) BASIC METABOLIC [id number] 11:36:16 Test Item Value Reference Range Interpretation [...] S NOT APPLICABLE FOR DIALYSIS PATIEN TS. Management Information Systems Director ID - LITOOperator ID - LITOOperator ID [...] (BEAKER) (test code = 413) BASIC METABOLIC [id number] 05:49:14 Test Item Value Reference Range Interpretation [...] S NOT APPLICABLE FOR DIALYSIS PATIEN TS. Management Information Systems Director ID - [id number] ID - lydagjsqc054Mrnottfu ID - akklrqmrk563Twykcesb ID - hgtcdvcss223Xflnhkwa ID - dhihodokj146Htvbaxat ID - nnvzckzrc550Apbwvcug ID - pqllbiwxf861Szmjbgac ID - ohqawveps527Otjttehc ID - tvqjxqyig596Ntkgiyec ID - fdjecpzjt018Ojbqlkmh ID - ajcpecqtg790Xvprtdnb ID - buyltivtp834Zxugedta ID - irmsbclkf519MZWYS METABOLIC RBCYZ6766-77-43 05:59:25 Test Item Value Reference Range Interpretation [...] S NOT APPLICABLE FOR DIALYSIS PATIEN TS. Management Information Systems Director ID - [id number] ID - SYJA74Ibqvlnrn ID - HBRL30Tikawnvn ID - UFQA28Dgydjurt ID - EMDC82Byrqdjnu ID - VKVU61Kadcmwjx ID - WAGC42Mzosnwsg ID - MLPQ44Dpjhzlyi ID - DIOD66Yacksurm ID - WONJ27FKOCEYZRK4874-28-42 05:52:55 Test Item Value Reference Range Interpretation Comments MAGNESIUM (BEAKER) (test code = 1.3 mg/dL 1.5-3.0 L 627) Management Information Systems Director ID - [id number] ID - PQTZ30Yzvkmohq ID - PBNQ15Xdejoqeu ID - ZNMP04 BASIC METABOLIC [id number] 06:46:33 Test Item Value Reference Range Interpretation [...] S NOT APPLICABLE FOR DIALYSIS PATIEN TS. Management Information Systems Director ID - LITOOperator ID - LITOOperator ID - LITOOperator ID - LITOOperator ID - LITOOperator ID - LITOOperator ID - LITOOperator ID - LITOOperator ID - LITOOperator ID - UANQQJTSRIAIH2024-25-96 06:45:09 Test Item Value Reference Range Interpretation Comments MAGNESIUM (BEAKER) (test code = 1.7 mg/dL 1.5-3.0 627) Management Information Systems Director ID - LITOOperator ID - LITOOperator ID [...] 0-0 (test code = 413) BASIC METABOLIC [id number] 06:42:24 Test Item Value Reference Range Interpretation [...] S NOT APPLICABLE FOR DIALYSIS PATIEN TS. Management Information Systems Director ID - [id number] ID - JPHM66Qwsqnfiq ID - POTK08Jfnfivhm ID - IVUP99Kidtigiq ID - CSIF53Juobvgfn ID - KEPT96Vdbokfmv ID - NMYQ09Ccjzeday ID - QVKM58Bnovncaj ID - NRQR87Jldpazxm ID - ZCNJ83HINJGAHTN0727-80-28 06:39:52 Test Item Value Reference Range Interpretation Comments MAGNESIUM (BEAKER) (test code = 1.1 mg/dL 1.5-3.0 L 627) Management Information Systems Director ID - PBWF51Vlenscfe ID - VYUJ23Vcqkfqkf ID - BWMP45Xvrxsosd ID - [id number] CBC (HEMOGRAM ONLY)2021-12-21 06:26:23 [...] 0-0 (test code = 413) COMPREHENSIVE METABOLIC [id number] 07:20:00 Test Item Value Reference Range Interpretation [...] S NOT APPLICABLE FOR DIALYSIS PATIEN TS. Management Information Systems Director ID - LITOOperator ID - LITOOperator ID [...] (BEAKER) (test code = 2801) Prepare Leuko-Red [id number] 23:54:00 Test Item Value Reference Range Interpretation Comments CROSSMATCH (test code = 2264) COMPATIBLE Unit ABO (test code = O Pos 2183568) UNIT NUMBER (test code = [id number] 934-0) Status (test code = 4957205) [facility] Blood [facility] Product (test code RED BLOOD CELLS = 2263) PRODUCT CODE (test code = W8986V89 933-2) [facility] [id number] 23:54:00 Test Item Value Reference Range Interpretation Comments CROSSMATCH (test code = 2264) COMPATIBLE Unit ABO (test code = O Pos 9684074) UNIT NUMBER (test code = [id number] 934-0) Status (test code = 0330960) [facility] Blood Bank Product (test code RED BLOOD CELLS = 2263) PRODUCT CODE (test code = C5590G39 933-2) [facility] [id number] 23:54:00 Test Item Value Reference Range Interpretation Comments CROSSMATCH (test code = 2264) COMPATIBLE Unit ABO (test code = O Pos 7234643) UNIT NUMBER (test code = [id number] 934-0) Status (test code = 3281171) TX_TIMEINCHART Blood Bank Product (test code RED BLOOD CELLS = 2263) PRODUCT CODE (test code = B7418H53 933-2) [facility] [id number] 23:54:00 Test Item Value Reference Range Interpretation Comments CROSSMATCH (test code = 2264) COMPATIBLE Unit ABO (test code = O Pos 0615897) UNIT NUMBER (test code = [id number] 934-0) Status (test code = 7539774) TX_TIMEINCHART Blood Bank Product (test code RED BLOOD CELLS = 2263) PRODUCT CODE (test code = S3738R01 933-2) [facility] [id number] 23:54:00 Test Item Value Reference Range Interpretation Comments CROSSMATCH (test code = 2264) COMPATIBLE Unit ABO (test code = O Pos 4810858) UNIT NUMBER (test code = [id number] 934-0) Status (test code = 2485194) [facility] Blood Bank Product (test code RED BLOOD CELLS = 2263) PRODUCT CODE (test code = U3619A46 933-2) [facility] [id number] 23:54:00 Test Item Value Reference Range Interpretation Comments CROSSMATCH (test code = 2264) COMPATIBLE Unit ABO (test code = O Pos 7825178) UNIT NUMBER (test code = [id number] 934-0) Status (test code = 1119870) [facility] Blood Bank Product (test code RED BLOOD CELLS = 2263) PRODUCT CODE (test code = I5204F75 933-2) [facility] Leuko-Red [id number] 23:54:00 Test Item Value Reference Range Interpretation Comments CROSSMATCH (test code = 2264) COMPATIBLE Unit ABO (test code = O Pos 7754150) UNIT NUMBER (test code = [id number] 934-0) Status (test code = 3895050) TX_TIMEINCHART Blood Bank Product (test code RED BLOOD CELLS = 2263) PRODUCT CODE (test code = M1107U70 933-2) [facility]Red [id number] 23:54:00 Test Item Value Reference Range Interpretation Comments CROSSMATCH (test code = 2264) COMPATIBLE Unit ABO (test code = O Pos 9721563) UNIT NUMBER (test code = [id number] 934-0) Status (test code = 0191833) TX_TIMEINCHART Blood Bank Product (test code RED BLOOD CELLS = 2263) PRODUCT CODE (test code = E9791R49 933-2) [facility] HospitalCOM[facility] [id number] 06:55:53 Test Item Value Reference Range Interpretation [...] S NOT APPLICABLE FOR DIALYSIS PATIEN TS. Management Information Systems Director ID - [id number] ID - WQACGTPKM487Xhqdrtpe ID - DPJMJUEIU742Xlfsqsqg ID - BOVUGMQLL009Djmxljhu ID - OIPKDLKYP587Wxwhswqu ID - ENPJAETKK741Movjrelr ID - XEEUQSQSK454Plwqdoiw ID - IRQQRFVAJ230Vzelfalb ID - RYUUTLWJA536Pzrdezyg ID - [id number] ID - [id number] ID - [id number] ID - [id number] ID - [id number] ID - [id number] ID -[id number] ID - [id number] ID - [id number] ID - [id number] slightly ictericCBC W/PLT COUNT & AUTO [id number] 06:34:13 Test Item Value Reference Range Interpretation [...] (BEAKER) (test code = 2801) COMPREHENSIVE METABOLIC [id number] 07:01:24 Test Item Value Reference Range Interpretation [...] S NOT APPLICABLE FOR DIALYSIS PATIEN TS. Management Information Systems Director ID - LITOOperator ID - LITOOperator ID - LITOOperator ID - LITOOperator ID - LITOOperator ID - LITOOperator ID - LITOOperator ID - LITOOperator ID - LITOOperator ID - LITOHEPATIC FUNCTION [id number] 07:01:15 Test Item Value Reference Range Interpretation [...] (test code = 20 U/L 5-50 347) Management Information Systems Director ID - LITOOperator ID - LITOOperator ID - LITOOperator ID - LITOOperator ID - LITOOperator ID - LITOOperator ID - LITOLIPID [id number] 07:01:14 Test Item Value Reference Range Interpretation [...] Borderline 130-159 High 160-189 Very High >=190 Management Information Systems Director ID - LITOOperator ID - LITOOperator ID - LITOOperator ID - LITOOperator ID - LITOOperator ID - LITOPROTHROMBIN [id number] 06:59:56 Test Item Value Reference Range Interpretation Comments PROTIME (BEAKER) 16.7 seconds 9.3-12.0 H Final Infor mation (test code = 759) (Auto Outp ut) INR (BEAKER) (test 1.57 See_Comment Final Inf ormation code = 370) (Auto Output) [Automated mess age] The system Managed by Q generated this result transmitted ref erence range: <=5.90. The reference range was not used to int erpret this result as normal/abnormal . RECOMMENDED COUMADIN/WARFARIN INR THERAPY RANGESSTANDARD DOSE: 2.0 - 3.0 Includes: PROPHYLAXIS for venous thrombosis, systemic embolization; TREATMENT for venous thrombosis and/or pulmonary embolus.HIGH RISK: Target INR is 2.5-3.5 for patients with mechanical heart valves.CBC W/PLT COUNT & AUTO [id number] 06:56:13 Test Item Value Reference Range Interpretation [...] 0-0 PERCENT (BEAKER) (test code = 2801) [id number] 06:47:47 Test Item Value Reference Range Interpretation Comments AMMONIA (BEAKER) (test code = 348) 66 mol/L 17-80 Management Information Systems Director ID - LITOOperator ID - LITOOperator ID - LITOOperator ID - LITOXR FEMUR RIGHT AP & LAT *OW*2019-03-27 10:20:15Exam: X-ray right femur 2 viewsHISTORY: Pain.Location: [id number]:No fracture or dislocation is noted. No osseous lesions seen.IMPRESSION:1. Unremarkable exam. Notes Date/Time Note Provider Source 2022-12-17 07:50:59-00:00 RORY JACKSON [facility] PROGRESS NOTE JIGNA LEI FACILITY: [facility] Billing #: [id number] Room: [address] [place] [address] MR #: [id number] : 1965 PHYSICIAN: Rory Jackson MD ADMISSION [...] Continue treatment of alcohol w ithdrawal per [facility] protocol. At this point, I am going [...] withdrawal and then we will proceed accordingly. ROLAND/TRAVIS /[id number] Electronically signed by: RORY JACKSON at 20 13-12-26 07:19:53.000 2022-12-16 21:49:53-00:00 RORY JACKSON [facility] CONSULTATION JIGNA LEI FACILITY: [facility] Billing #: [id number] Room: [address] [place] [address] MR #: [id number] : 1965 DATE OF ADMISSION: 12/14/2022 DATE OF CONSULTATION: REQUESTING PHYSICIAN: Kay Alberto MD NATURAL GAS TRADER: Rory Jackson MD Gastroenterology Consultation Note REASON FOR CONSULTATION: Questionable GI bleed. HISTORY OF PRESENT ILLNESS: This is a 57-year-ol d male with history of alcohol abuse as well as history of g astric paresis who presents to [facility] 2 days ago with lower GI bleed and altered mental status. The pa belinda is currently unable to give any history due to alco hol withdrawal. However, it appears that he was actually admitt ed 2 years ago after being transferred from outside hospital [facility] concerns for GI bleed. Initially, another county program technician was consulted, but apparently he is out of town and therefore I was consulted on this patient about 2 hours ago. He has been h ere for about 48 hours without any further bleeding reported. He is currently getting treatment for alcohol withdraw al per [facility] protocol. His hemoglobin was 6.9 and he [...] fo r liver transplant at this time. ROLAND/TRAVIS /[id number] Electronically signed by: RORY JACKSON at 20 13-12-25 20:43:36.000 2021-12-27 14:14:33-00:00 ISIAH CORRAL [facility] PROGRESS NOTE JIGNA LEI FACILITY: [facility] Billing #: [id number] Room: [address] [place] [address] MR #: [id number] : 1965 PHYSICIAN: Kay Alberto MD ADMISSION [...] discharge this patien t home tomorrow. SSA/MODL /[id number] 2021-12-18 12:33:57-00:00 CONNIE BRYANT [facility] CONSULTATION JIGNA LEI FACILITY: [facility] Billing #: [id number] Room: [address] [place] [address] MR #: [id number] : 1965 DATE OF ADMISSION: 12/18/2021 DATE OF CONSULTATION: REQUESTING PHYSICIAN: NATURAL GAS TRADER: Connie Bryant MD Gastrology Consultation Note REASON [...] endoscopic workup is recommended at this t critical access hospital, and followup can be arranged as an outpatient. He figueroa dejesus will need another unit of blood prior to discharge. Thank you for the courtesy of your referral. RAMU/TRAVIS /[id number]
[2023-01-30] MEDS ORDERED: PANTOPRAZOLE 40 MG INJ ONE (18:26)
[2023-01-30] MEDS ORDERED: NA CHLORIDE 0.9% 2,000 ML ONE (18:26)
[2023-01-30] MEDS ORDERED: THIAMINE 200 MG/2 ML INJ ONE (18:26)
[2023-01-30] MEDS ORDERED: ONDANSETRON 4 MG/2 ML VIAL ONE (18:26)
[2023-01-30] MEDS ORDERED: LORazepam 2 MG/ML VIAL ONE (18:26)
[2023-01-30] MEDS ORDERED: FOLIC ACID 5 MG/ML VIAL ONE (18:27)
[2023-01-30] MEDS ORDERED: MULTIVITAMINS 10 ML VIAL (INJ) IV ONE (18:27)
[2023-01-30 18:35] LABS: Protime INR 1.24
[2023-01-30 18:39] LABS: Absolute Lymphocytes (CBC) 0.9 K/uL (0.7-4.9); Hematocrit 22.8 % (39.6-49.0); Lymphocytes % 17.8 % (15.3-44.8); MCV 92.5 fL (80-100); MPV 7.6 fL (7.6-11.3); RBC Red Blood Cell Count 2.46 M/uL (4.33-5.43)
--- NOTE | 2023-01-30 18:41 | RAD REPORT ---
EXAM DESCRIPTION: RAD - Chest Single View - 01/30/2023 6:20 pm CLINICAL HISTORY: CHEST PAIN COMPARISON: Chest Single View dated 01/15/2023; Chest Single View dated 12/14/2022; Chest Single View dated 05/20/2022 FINDINGS: Lines: None. Lungs: No evidence of edema or pneumonia. Pleural: No significant pleural effusions or pneumothorax. Cardiac: The heart size is within normal limits. Mediastinum: Within normal limits. Bones: No acute fractures. Other: None IMPRESSION: No acute cardiopulmonary disease.
[2023-01-30 18:51] LABS: Albumin 2.9 g/dL (3.4-5.0); Bilirubin Direct 0.6 mg/dL (0-0.2); Bilirubin Indirect, Calculated 0.2 mg/dL (0.2-0.8); Bilirubin Total 0.8 mg/dL (0.2-1.0); Magnesium 1.8 mg/dL (1.6-2.4); Potassium 3.9 mEq/L (3.5-5.1); Protein, Total 8.3 g/dL (6.4-8.2); Troponin High Sensitivity 8.4 pg/mL (<58.9)
--- NOTE | 2023-01-30 19:21 | EDPHYS ---
Physician Documentation [facility] Name: Fan Lei Jr Age: 57 yrs Sex: Male : 1965 Arrival Date: 01/30/2023 Time: 17:55 Bed 20 Private MD: ED Physician Bubba Flanagan HPI: 01/30 19:05 This 57 yrs old Male presents to ER via EMS with complaints of Anxiety. zaria 19:05 The patient or guardian reports chest pain that is located primarily in the substernal zaria area, anterior chest wall, left. Onset: 5 day(s) ago. The patient presents with abdominal pain in the upper abdomen, in the lower abdomen. Onset: The symptoms/episode began/occurred 3 day(s) ago. heavy etoh , co cp , been tp outside er 3-4 times this week. The pain does not radiate. Onset: The symptoms/episode began/occurred 5 day(s) ago. The symptoms do not radiate. Associated signs and symptoms: Pertinent positives: chest pain. Modifying factors: The symptoms are alleviated by nothing, the symptoms are aggravated by movement, pressure, touching the area. Associated signs and symptoms: Pertinent positives: lightheadedness, shortness of breath. The chest pain is described as aching. Duration: The patient or guardian reports multiple episodes, that wax and wane. Modifying factors: The symptoms are alleviated by application of supplemental oxygen, remaining still, the symptoms are aggravated by breathing, cough, deep breath, movement, palpation of area. Severity of pain: At its worst the pain was moderate in the emergency department the pain is unchanged. Severity of symptoms: At their worst the symptoms were moderate in the emergency department the symptoms are unchanged. The patient has experienced similar episodes in the past, several times. Historical: - Allergies: 18:10 No Known Allergies; bp - PMHx: 18:10 Cirrhosis of liver; Congestive heart failure; Gastroesophageal reflux disease; GI bp bleed; Alcohol dependence; - Immunization history:: Adult Immunizations not up to date. - Social history:: Smoking status: Patient reports the use of cigarette tobacco products, denies chronic smoking, but will smoke occasionally, Patient uses alcohol, claims drinking about a 6 pack/day. - Family history:: not pertinent. ROS: 19:05 Constitutional: Negative for fever, chills, and weight loss, Eyes: Negative for injury, zaria pain, redness, and discharge, ENT: Negative for injury, pain, and discharge, Neck: Negative for injury, pain, and swelling, Respiratory: Negative for shortness of breath, cough, wheezing, and pleuritic chest pain, Back: Negative for injury and pain, : Negative for injury, bleeding, discharge, and swelling, MS/Extremity: Negative for injury and deformity, Skin: Negative for injury, rash, and discoloration, Neuro: Negative for headache, weakness, numbness, tingling, and seizure, Psych: Negative for depression, anxiety, suicide ideation, homicidal ideation, and hallucinations, Allergy/Immunology: Negative for hives, rash, and allergies, Endocrine: Negative for neck swelling, polydipsia, polyuria, polyphagia, and marked weight changes, Hematologic/Lymphatic: Negative for swollen nodes, abnormal bleeding, and unusual bruising. 19:05 Cardiovascular: Positive for chest pain, of the left clavicle, anterior aspect of left upper chest, left nipple and left breast. 19:05 Abdomen/GI: Positive for abdominal pain, of the right upper quadrant, left upper quadrant, right lower quadrant and abdomen diffusely. 19:05 MS/extremity: Negative for acute changes. 19:05 Neuro: Positive for weakness. Exam: 19:05 Constitutional: This is a well developed, well nourished patient who is awake, alert, zaria and in no acute distress. Head/Face: Normocephalic, atraumatic. Eyes: Pupils equal round and reactive to light, extra-ocular motions intact. Lids and lashes normal. Conjunctiva and sclera are non-icteric and not injected. Cornea within normal limits. Periorbital areas with no swelling, redness, or edema. ENT: Nares patent. No nasal discharge, no septal abnormalities noted. Tympanic membranes are normal and external auditory canals are clear. Oropharynx with no redness, swelling, or masses, exudates, or evidence of obstruction, uvula midline. Mucous membranes moist. Neck: Trachea midline, no thyromegaly or masses palpated, and no cervical lymphadenopathy. Supple, full range of motion without nuchal rigidity, or vertebral point tenderness. No Meningismus. Chest/axilla: Normal chest wall appearance and motion. Nontender with no deformity. No lesions are appreciated. Cardiovascular: Regular rate and rhythm with a normal S1 and S2. No gallops, murmurs, or rubs. Normal PMI, no JVD. No pulse deficits. Respiratory: Lungs have equal breath sounds bilaterally, clear to auscultation and percussion. No rales, rhonchi or wheezes noted. No increased work of breathing, no retractions or nasal flaring. Back: No spinal tenderness. No costovertebral tenderness. Full range of motion. Male : Normal genitalia with no discharge or lesions. Skin: Warm, dry with normal turgor. Normal color with no rashes, no lesions, and no evidence of cellulitis. MS/ Extremity: Pulses equal, no cyanosis. Neurovascular intact. Full, normal range of motion. Neuro: Awake and alert, GCS 15, oriented to person, place, time, and situation. Cranial nerves II-XII grossly intact. Motor strength 5/5 in all extremities. Sensory grossly intact. Cerebellar exam normal. Normal gait. Psych: Awake, alert, with orientation to person, place and time. Behavior, mood, and affect are within normal limits. 19:05 ECG was reviewed by the Attending Physician. 19:05 Abdomen/GI: Inspection: distension, Bowel sounds: normal, Palpation: mild abdominal tenderness, in all quadrants, Liver: no appreciated palpable abnormalities, Hernia: not appreciated. Vital Signs: 18:09 BP 127 / 81; Pulse 82; Resp 18; Temp 98.2; Pulse Ox 98% on R/A; Weight 67.13 kg; Height eh3 5 ft. 4 in. ; 19:00 BP 130 / 72; Pulse 82; Resp 16; Pulse Ox 97% on R/A; 3 20:00 BP 131 / 83; Pulse 90; Resp 18; Pulse Ox 95% on R/A; 3 21:00 BP 120 / 70; Pulse 74; Resp 14; Pulse Ox 92% on R/A; 3 18:09 Body Mass Index 25.40 (67.13 kg, 162.56 cm) [facility] MDM: 18:04 Patient medically screened. zaria 19:29 Differential diagnosis: abnormal EKG, acute myocardial infarction, acute pericarditis, zaria anxiety, chest wall pain, congestive heart failure Cholelithiasis costochondritis, esophagitis, gastroesophageal reflux disease (GERD), hiatal hernia, pancreatitis, peptic ulcer disease, pericarditis, pleurisy, pneumonia, pulmonary embolus, stable angina, thoracic aortic disection, unstable angina, bowel obstruction, coronary artery disease, Cholelithiasis, gastritis, gastroesophageal reflux disease, GI Bleed, Mesenteric ischemia or infarction, myocardia ischemia or infarction, non-specific abd pain, pancreatitis, Peptic Ulcer Disease, Ureterolithiasis, urinary tract infection. Differential Diagnosis altered mental status, sepsis. HEART Score: History: Moderately Suspicious (1), ECG: Non specific repolarization disturbance / LBTB / PM (1), Age: > 45 and < 65 years (1), Risk Factors: > or = 3 Risk factors for atherosclerotic disease (2), [Hypercholesterolemia] [Hypertension] [Active Smoker] [+ Family HX] [Obesity] Troponin: < or = 1 x Normal Limit (0). The patient was not given aspirin in the Emergency Department. Not indicated due to patient's past medical history. CECILE Risk Score: 1 - patient's age is greater or equal to 65 years, 1 - Three or more CAD risk factors, 1- Known CAD, 1 - Recent [<24hrs] Severe Angina, TOTAL SCORE = 4. Data reviewed: vital signs, nurses notes, EMS record, lab test result(s), EKG, radiologic studies, CT scan, plain films. Consideration of Admission/Observation Patient was admitted/placed on observation. Escalation of care including admission/observation considered. I considered the following discharge prescriptions or medication management in the emergency department Medications were administered in the Emergency Department. See MAR. Test considered but Not performed: Ultrasound no abd usg. Care significantly affected by the following chronic conditions: Hypertension, Congestive Heart Failure, Liver Disease, gi bleed, alcohol abuse. Counseling: I had a detailed discussion with the patient and/or guardian regarding: the historical points, exam findings, and any diagnostic results supporting the discharge/admit diagnosis, the presence of at least one elevated blood pressure reading (>120/80) during this emergency department visit, lab results, radiology results, the need for further work-up and treatment in the hospital. 01/30 18: Order name: Basic Metabolic Panel; Complete Time: 19: zaria 01/30 18: Order name: CBC with Diff; Complete Time: : zaria 01/30 18: Order name: LFT's; Complete Time: : [facility] 01/30 18: Order name: Magnesium; Complete Time: : [facility] 01/30 18:07 Order name: NT PRO-BNP; Complete Time: 19:11 [facility] 01/30 18:07 Order name: PT-INR; Complete Time: 19:11 [facility] 01/30 18:07 Order name: Troponin HS; Complete Time: 19:11 [facility] 01/30 18:07 Order name: Lipase; Complete Time: 19:11 [facility] 01/30 18:07 Order name: Urinalysis w/ reflexes [facility] 01/30 18:07 Order name: UDS [facility] 01/30 18:51 Order name: Alcohol Serum/Plasma; Complete Time: 19:11 [facility] 01/30 19:05 Order name: AMMONIA [facility] 01/30 19:14 Order name: Type And Screen [facility] 01/30 19:14 Order name: PRBC [facility] 01/30 19:17 Order name: ABO/RH typing [facility] 01/30 19:17 Order name: Antibody Screen [facility] 01/30 18:07 Order name: XRAY Chest (1 view); Complete Time: 19:11 [facility] 01/30 18:07 Order name: CT Aorta for Dissection [facility] 01/30 18:07 Order name: EKG; Complete Time: 18:08 [facility] 01/30 18:07 Order name: Cardiac monitoring; Complete Time: 18:49 [facility] 01/30 18:07 Order name: EKG - Nurse/Tech; Complete Time: 18:49 [facility] 01/30 18:07 Order name: IV Saline Lock; Complete Time: 18:49 [facility] 01/30 18:07 Order name: Labs collected and sent; Complete Time: 18:49 [facility] 01/30 18:07 Order name: O2 Per Protocol; Complete Time: 18:49 [facility] 01/30 18:07 Order name: O2 Sat Monitoring; Complete Time: 18:49 [facility] 01/30 19:14 Order name: IV Saline Lock - Large Bore; Complete Time: 19:58 [facility] EC:05 Rate is 81 beats/min. Rhythm is regular. QRS [place] is Normal. NV interval is normal. QT zaria interval is normal. No Q waves. T waves are Normal. No ST changes noted. Clinical impression: NSR w/ Non-specific ST/T Changes and No evidence of ischemia. Interpreted by me. Reviewed by me. Administered Medications: 18:35 Drug: Thiamine IV 100 mg Route: IV; Rate: bolus; Site: right antecubital; eh3 19:58 Follow up: Response: No adverse reaction; IV Status: Completed infusion; IV Intake: 11oykc5 18:35 Drug: NS 0.9% IV 1000 ml Route: IV; Rate: 1 bolus; Site: right antecubital; eh3 18:35 Drug: Banana Bag - (NS 0.9% IV 1000 ml, foLIC Acid IVPB 1 mg, Thiamine IV 100 mg, eh3 Multivitamin IV 1 amp) Route: IV; Rate: 500 ml/hr; Site: right antecubital; 18:35 Drug: Pantoprazole IVP 40 mg Route: IVP; Site: right antecubital; eh3 19:58 Follow up: Response: No adverse reaction eh3 18:35 Drug: Ondansetron IVP 4 mg Route: IVP; Site: right antecubital; eh3 19:58 Follow up: Response: No adverse reaction eh3 18:35 Drug: Ativan IVP 1 mg Route: IVP; Site: right antecubital; eh3 19:58 Follow up: Response: No adverse reaction eh3 19:20 Drug: Pantoprazole IVP 40 mg Route: IVP; Site: right antecubital; eh3 19:59 Follow up: Response: No adverse reaction eh3 19:25 Drug: Pantoprazole IV 8 mg/hr Route: IV; Rate: 25 ml/hr; Site: right antecubital; eh3 Disposition Summary: 01/30/23 19:21 Hospitalization Ordered Hospitalization Status: Inpatient Admission zaria Provider: Lemuel Chairez cha Location: Telemetry/MedSurg (Inpatient) zaria Condition: Fair zaria Problem: new zaria Symptoms: have improved zaria Bed/Room Type: Standard zaria Room Assignment: 405(01/30/23 20:23) cg Diagnosis - Chest pain, unspecified zaria - Alcohol abuse with intoxication zaria - Anemia, unspecified zaria - Alcoholic cirrhosis of liver with ascites zaria - Other cholelithiasis without obstruction zaria Forms: - Medication Reconciliation Form zaria - SBAR form zaria Signatures: Dispatcher [employer] Bubba Cotton MD MD cha Garcia, Cindy RN RN cg Lizandro Summers RN RN bp Veronica Aguilera RN RN eh3 Corrections: (The following items were deleted from the chart) 18:11 18:10 PMHx: Alcohol dependence; bp bp 18:11 18:10 PMHx: LIVER PROBLEMS; bp bp 18:51 18:42 ETHANOL+C.LAB.BRZ ordered. EDMS EDMS 19:33 19:21 Alcoholic cirrhosis of liver without ascites [facility] 20:23 19:21 [facility]
--- NOTE | 2023-01-30 19:21 | ER ---
Nurse's Notes [facility] Name: Fan Lei Jr Age: 57 yrs Sex: Male : 1965 Arrival Date: 01/30/2023 Time: 17:55 Bed 20 Private MD: Diagnosis: Chest pain, unspecified;Alcohol abuse with intoxication;Anemia, unspecified;Alcoholic cirrhosis of liver with ascites;Other cholelithiasis without obstruction Presentation: 01/30 18:09 Chief complaint: EMS states: toned out to side of road for chest pain, pt has been bp transported by EMS 5x in the last 24 hours. EMS reports sinus tach on EKG and BGL of 122. Coronavirus screen: Vaccine status: Patient reports being unvaccinated. Ebola Screen: No symptoms or risks identified at this time. Initial Sepsis Screen:. Risk Assessment: Do you want to hurt yourself or someone else? Patient reports no desire to harm self or others. Onset of symptoms was January 30, 2023. 18:09 Method Of Arrival: EMS: [facility] bp 18:09 Acuity: KITA 3 bp 18:09 Initial Sepsis Screen: Does the patient meet any 2 criteria? No. Patient's initial eh3 sepsis screen is negative. Does the patient have a suspected source of infection? No. Patient's initial sepsis screen is negative. Triage Assessment: 18:10 General: Appears in no apparent distress. uncomfortable, Behavior is calm, cooperative. bp General: Appears unkempt. Pain: Complains of pain in chest. Neuro: Level of Consciousness is awake, alert, obeys commands, Oriented to person, place, time, situation. Cardiovascular: Capillary refill < 3 seconds Patient's skin is warm and dry. Respiratory: Airway is patent Respiratory effort is even, unlabored, Respiratory pattern is regular, symmetrical. GI: Abdomen is round. Derm: Skin with poor turgor. Musculoskeletal: No signs and/or symptoms reported regarding the musculoskeletal system. Historical: - Allergies: 18:10 No Known Allergies; bp - PMHx: 18:10 Cirrhosis of liver; Congestive heart failure; Gastroesophageal reflux disease; GI bp bleed; Alcohol dependence; - Immunization history:: Adult Immunizations not up to date. - Social history:: Smoking status: Patient reports the use of cigarette tobacco products, denies chronic smoking, but will smoke occasionally, Patient uses alcohol, claims drinking about a 6 pack/day. - Family history:: not pertinent. Screenin:10 [facility] ED Fall Risk Assessment (Adult) Score/Fall Risk Level 0 - 2 = Low Risk. Abuse 3 screen: Denies threats or abuse. Denies injuries from another. Nutritional screening: No deficits noted. Tuberculosis screening: No symptoms or risk factors identified. Assessment: 18:10 Reassessment: No changes from previously documented assessment. See triage assessment. [facility] 19:00 Reassessment: Patient appears in no apparent distress at this time. Patient and/or 3 family updated on plan of care and expected duration. Pain level reassessed. Patient is alert, oriented x 3, equal unlabored respirations, skin warm/dry/pink. 20:00 Reassessment: Patient appears in no apparent distress at this time. Patient and/or 3 family updated on plan of care and expected duration. Pain level reassessed. Patient is alert, oriented x 3, equal unlabored respirations, skin warm/dry/pink. 21:00 Reassessment: Patient appears in no apparent distress at this time. Patient and/or 3 family updated on plan of care and expected duration. Pain level reassessed. Patient is alert, oriented x 3, equal unlabored respirations, skin warm/dry/pink. Vital Signs: 18:09 BP 127 / 81; Pulse 82; Resp 18; Temp 98.2; Pulse Ox 98% on R/A; Weight 67.13 kg; Height 3 5 ft. 4 in. ; 19:00 BP 130 / 72; Pulse 82; Resp 16; Pulse Ox 97% on R/A; eh3 20:00 BP 131 / 83; Pulse 90; Resp 18; Pulse Ox 95% on R/A; eh3 21:00 BP 120 / 70; Pulse 74; Resp 14; Pulse Ox 92% on R/A; eh3 18:09 Body Mass Index 25.40 (67.13 kg, 162.56 cm) [facility] ED Course: 17:55 Patient arrived in ED. rg4 18:04 Bubba Flanagan MD is Attending Physician. zaria 18:08 Lizandro Summers, RN is Primary Nurse. bp 18:10 Triage completed. bp 18:10 Arm band placed on. bp 18:10 Patient has correct armband on for positive identification. Bed in low position. Call 3 light in reach. Side rails up X2. Provided Education on: N/A. Client placed on continuous cardiac and pulse oximetry monitoring. NIBP monitoring applied. Door closed. Noise minimized. Lights dimmed. Warm blanket given. 18:22 XRAY Chest (1 view) In Process Unspecified. EDMS 18:30 Inserted saline lock: 22 gauge in right antecubital area, using aseptic technique. eh3 19:16 CT Aorta for Dissection In Process Unspecified. EDMS 19:20 Lemuel Chairez is Hospitalizing Provider. [facility] 21:17 No provider procedures requiring assistance completed. Patient admitted, IV remains in eh3 place. Administered Medications: 18:35 Drug: Thiamine IV 100 mg Route: IV; Rate: bolus; Site: right antecubital; eh3 19:58 Follow up: Response: No adverse reaction; IV Status: Completed infusion; IV Intake: [id number] 18:35 Drug: NS 0.9% IV 1000 ml Route: IV; Rate: 1 bolus; Site: right antecubital; eh3 18:35 Drug: Banana Bag - (NS 0.9% IV 1000 ml, foLIC Acid IVPB 1 mg, Thiamine IV 100 mg, eh3 Multivitamin IV 1 amp) Route: IV; Rate: 500 ml/hr; Site: right antecubital; 18:35 Drug: Pantoprazole IVP 40 mg Route: IVP; Site: right antecubital; eh3 19:58 Follow up: Response: No adverse reaction eh3 18:35 Drug: Ondansetron IVP 4 mg Route: IVP; Site: right antecubital; eh3 19:58 Follow up: Response: No adverse reaction eh3 18:35 Drug: Ativan IVP 1 mg Route: IVP; Site: right antecubital; eh3 19:58 Follow up: Response: No adverse reaction eh3 19:20 Drug: Pantoprazole IVP 40 mg Route: IVP; Site: right antecubital; eh3 19:59 Follow up: Response: No adverse reaction eh3 19:25 Drug: Pantoprazole IV 8 mg/hr Route: IV; Rate: 25 ml/hr; Site: right antecubital; eh3 Medication: 21:16 VIS not applicable for this client. eh3 Intake: 19:58 IV: 10ml; Total: 10ml. eh3 Outcome: 19:21 Decision to Hospitalize by Provider. zaria 21:17 Admitted to Tele accompanied by tech, via stretcher, room 405, Report called to [facility] 21:17 Condition: stable 3 21:33 Patient left the ED. 3 Signatures: Dispatcher [employer] EDBubba Lr MD MD cha Garcia, Rubi rg4 Lizandro Summers RN RN Veronica Fine RN RN 3 Corrections: (The following items were deleted from the chart) 18:11 18:10 PMHx: Alcohol dependence; bp bp 18:11 18:10 PMHx: LIVER PROBLEMS; bp bp
--- NOTE | 2023-01-30 19:23 | RAD REPORT ---
EXAM DESCRIPTION: CTAngio Aorta For Dissection - 01/30/2023 7:14 pm CLINICAL HISTORY: pe;Dissection COMPARISON: No comparisons TECHNIQUE: CTA of the chest, abdomen, and pelvis was performed. MIPS of the aorta were created. . All CT scans are performed using dose optimization technique as appropriate and may include automated exposure control or mA/KV adjustment according to patient size. FINDINGS: Thorax: Chest Wall: No abnormal mass Lungs: No acute abnormality. Pleura: No effusions or pneumothorax. Lorin/Mediastinum: No lymphadenopathy. Mild esophageal thickening which could reflect esophagitis. Aorta/Pulmonary Arteries: Unremarkable Heart: Normal size. Coronary artery calcifications. Abdomen/Pelvis: Liver: Hepatic steatosis. Cirrhosis. Biliary: Cholelithiasis. Stomach: No significant focal abnormality. Duodenum: No significant focal abnormality. Pancreas: No significant abnormality. Spleen: No significant abnormality. Adrenal: No suspicious lesions. Kidney/ureter: No hydronephrosis. No renal calculi. Left upper pole renal cyst. Retroperitoneum: No retroperitoneal adenopathy. Vascular: No aneurysm. Bowel: No significant focal abnormality. Peritoneum: Small volume ascites. Small umbilical hernia and small fat containing ventral hernia. Bladder: Grossly unremarkable. Reproductive: No adnexal masses. Bones: No acute fracture. Other: n/a IMPRESSION: No aortic aneurysm, aortic dissection, or pulmonary embolus identified. Cirrhosis with evidence of portal hypertension including small volume of ascites. Cholelithiasis without CT evidence of acute cholecystitis.
[2023-01-30] MEDS ORDERED: ONDANSETRON 4 MG/2 ML VIAL IV PRN (20:22)
[2023-01-30] MEDS ORDERED: NITROGLYCERIN 0.4 MG/TAB SL PRN (20:26)
--- NOTE | 2023-01-30 20:35 | P.HP ---
Certification for Inpatient Patient admitted to: Inpatient With expected LOS: <2 Midnights Patient will require the following post-hospital care: Home Health Services Practitioner: I am a practitioner with admitting privileges, knowledge of patient current condition, hospital course, and medical plan of care. Services: Services provided to patient in accordance with Admission requirements found in Title 42 Section 412.3 of the Code of Federal Regulations <SuzeTammi - Last Filed: 01/31/23 06:16> Patient History Date of Service: 01/31/23 History of Present Illness: 57 yrs old Male With a past medical history of anxiety, hypertension, mini stroke, heavy alcohol use presents to the emergency room with chest pain. he reports chest pain does not radiate. He reports chest pain has been persistent worse over the last 5 days. Reports some abdominal pain, generalized weakness, he reports he lives alone,HPI limited due to patient sleeping from heavy alcohol use? He closes eyes when I asked questions. Not sure if he is homeless. Reports his family is . Per ER notes he has been to the emergency room 3-4 times over the past week. ER course. Laboratory evaluation Troponin normal at 8.4, repeat 10.1, BNP 31, glucose 128, calcium 7.7, AST elevated at 121, lipase is 27, CBC microcytic anemia hemoglobin 7.1, 22.8, platelet count 126, sodium potassium normal, UA negative, UDS negative, Chest x-ray no acute pulmonary process CTA IMPRESSION: No aortic aneurysm, aortic dissection, or pulmonary embolus identified.Cirrhosis with evidence of portal hypertension including small volume of ascites. Cholelithiasis without CT evidence of acute cholecystitis <Tammi Arciniega - Last Filed: 01/31/23 06:16> Date of Service: 02/02/23 <Kaitlyn Zuniga - Last Filed: 02/02/23 08:24> Allergies No Known Allergies Allergy (Unverified 01/30/23 22:13) Review of Systems 10-point ROS is otherwise unremarkable <Tammi Arciniega - Last Filed: 01/31/23 06:16> Physical Examination - Physical Exam General: Alert, Oriented x3, Other (Quiet, refuses to answer questions, flat affect) HEENT: Atraumatic, Normocephalic, PERRLA Neck: Supple, 2+ carotid pulse no bruit Respiratory: Clear to auscultation bilaterally, Normal air movement Cardiovascular: No edema, Normal pulses, Normal S1 S2 Capillary refill: <2 Seconds Gastrointestinal: Normal bowel sounds, Non-distended Musculoskeletal: No clubbing, No swelling Integumentary: No rashes, No breakdown Neurological: Normal speech, Normal strength at 5/5 x4 extr, Other (Flat affect) - Studies Laboratory Data (last 24 hrs) 01/30/23 18:24: PT 13.6 H, INR 1.24 01/30/23 18:24: WBC 5.10, Hgb 7.1 L, Hct 22.8 L, Plt Count 126 L 01/30/23 18:24: Sodium 137, Potassium 3.9, BUN 6 L, Creatinine 0.94, Glucose 128 H, Magnesium 1.8, Total Bilirubin 0.8, AST 121 H, ALT 47, Alkaline Phosphatase 94, Lipase 27 <Tammi Arciniega - Last Filed: 01/31/23 06:16> - Studies Laboratory Data (last 24 hrs) 02/01/23 05:15: WBC 8.30, Hgb 9.1 L, Hct 28.3 L, Plt Count 79 L <Kaitlyn Zuniga - Last Filed: 02/02/23 08:24> Assessment and Plan - Plan Assessment plan Chest pain rule out [place] Abdominal pain Cholelithiasis without CT evidence of acute cholecystitis Alcohol use Cirrhosis Microcytic anemia transaminitis Hypocalcemia Assessment plan Chest pain rule out [place]-cardiology consult, trend troponin, BNP normal Abdominal pain, as needed antiemetics, Alcohol use-Ativan as needed for withdrawals Cirrhosis-educated on alcohol cessation hypocalcemia trend electrolytes replace as needed Diet n.p.o. Full code DVT Lovenox Discharge Plan: Home - Advance Directives Does patient have a Living Will: No Does patient have a Durable POA for Healthcare: No - Code Status/Comfort Care Code Status Assessed: Yes Code Status: Full Code Physician Review: Patient Assessed, Agree with Above Assessment and Plan Critical Care: No Time Spent Managing Pts Care (In Minutes): 55 <Tammi Arciniega - Last Filed: 01/31/23 06:16>
[2023-01-30] MEDS: INSULIN -REGULAR HUMAN 50 UNIT/0.5 ML ML SQ SCH (21:00)
[2023-01-30] MEDS: ATORVASTATIN 40 MG TAB PO SCH (21:00)
[2023-01-30 21:38] LABS: Barbiturates NEGATIVE (NEGATIVE); Benzodiazepines NEGATIVE (NEGATIVE); Cocaine NEGATIVE (NEGATIVE); METHAMPHETAM NEGATIVE (NEGATIVE); Methadone NEGATIVE (NEGATIVE); Opiates NEGATIVE (NEGATIVE); Phencyclidine NEGATIVE (NEGATIVE); THC Cannibis NEGATIVE (NEGATIVE)
[2023-01-30 21:42] LABS: Specific Gravity 1.027 (1.005-1.030); Urine Bilirubin NEGATIVE (Negative); Urine Blood Negative (Negative); Urine Clarity Clear (Clear); Urine Color Light-Yellow (Yellow); Urine Glucose NEGATIVE (Negative); Urine Protein NEGATIVE (Negative); Urine Urobilinogen Normal (Normal)
[2023-01-30] MEDS ORDERED: NA CHLORIDE 0.9% 250 ML ONE (22:45)
[2023-01-31] MEDS: MORPHINE 2 MG/ML SYR IV PRN ×2 (01:16→11:45)
[2023-01-31] MEDS: ACETAMINOPHEN 500 MG TAB PO PRN ×2 (03:20→13:50)
[2023-01-31] MEDS: METOPROLOL TAR 25 MG TAB PO SCH ×2 (05:44→17:11)
[2023-01-31 07:23] LABS: Absolute Lymphocytes (CBC) 1.1 K/uL (0.7-4.9); Hematocrit 27.5 % (39.6-49.0); Lymphocytes % 19.3 % (15.3-44.8); MCV 89.6 fL (80-100); MPV 7.8 fL (7.6-11.3); RBC Red Blood Cell Count 3.07 M/uL (4.33-5.43)
[2023-01-31] MEDS: INSULIN -REGULAR HUMAN 50 UNIT/0.5 ML ML SQ SCH ×4 (07:30→21:00)
[2023-01-31 07:33] LABS: Protime INR 1.35
[2023-01-31 07:46] LABS: Albumin 2.5 g/dL (3.4-5.0); Magnesium 1.7 mg/dL (1.6-2.4); Phosphorus 3.2 mg/dL (2.5-4.9); Potassium 3.7 mEq/L (3.5-5.1); Protein, Total 7.3 g/dL (6.4-8.2)
[2023-01-31] MEDS: ENOXAPARIN 40 MG/0.4 ML SQ SCH (08:31)
[2023-01-31] MEDS: ASPIRIN 81 MG CHEWABLE TABLET PO SCH (08:31)
[2023-01-31 09:05] LABS: Blood Morphology Comment NOT SEEN (NOT SEEN); Platelet Estimate ADEQ; White Blood Cell Scan OK (OK)
[2023-01-31] MEDS ORDERED: SODIUM CHLORIDE 0.9% 10ML INJ IV PRN (10:45)
[2023-01-31] MEDS ORDERED: PANTOPRAZOLE 40 MG INJ IVP ONE (10:45)
[2023-01-31] MEDS: chlordiazePOXIDE HCl 5 MG CAP PO SCH ×3 (11:39→23:59)
[2023-01-31 12:06] LABS: Hematocrit 28.8 % (39.6-49.0); Lymphocytes % 16.4 % (15.3-44.8); MCV 90.1 fL (80-100); MPV 7.9 fL (7.6-11.3)
[2023-01-31 12:18] LABS: Potassium 3.8 mEq/L (3.5-5.1)
--- NOTE | 2023-01-31 20:20 | EKG ---
Test Date: 2023-01-31 Test Time: 05:36:20 Seismic Interpreter: REYMUNDO MEASUREMENT RESULTS: Intervals: Rate: 73 VT: 132 QRSD: 88 QT: 414 QTc: 456 [place]: P: 42 VT: 132 QRS: -24 T: 30 INTERPRETIVE STATEMENTS: Normal sinus rhythm Low voltage QRS Borderline ECG Compared to ECG 01/30/2023 18:27:31 Low QRS voltage now present ST (T wave) deviation no longer present Electronically Signed On 01-31-23 20:18:31 CDT by Young Douglass
--- NOTE | 2023-01-31 20:23 | EKG ---
Test Date: 2023-01-30 Test Time: 18:27:31 Card Clothier: DIANNE MEASUREMENT RESULTS: Intervals: Rate: 81 [place]: 138 QRSD: 82 QT: 388 QTc: 450 [place]: P: 39 [place]: 138 QRS: 1 T: -70 INTERPRETIVE STATEMENTS: Normal sinus rhythm Nonspecific ST and T wave abnormality Abnormal ECG Compared to ECG 01/15/2023 21:09:47 ST (T wave) deviation now present Electronically Signed On 01-31-23 20:21:47 CDT by Young Douglass
[2023-01-31] MEDS: ATORVASTATIN 40 MG TAB PO SCH (22:10)
[2023-01-31] MEDS: SUCRALFATE 1 GM TABLET PO SCH (22:10)
[2023-01-31] MEDS: PANTOPRAZOLE 40 MG INJ IVP SCH (22:11)
[2023-01-31] MEDS: ALPRAZOLAM 0.25 MG TABLET PO PRN (22:13)
[2023-02-01 05:43] LABS: Absolute Lymphocytes (CBC) 1.3 K/uL (0.7-4.9); Hematocrit 28.3 % (39.6-49.0); MCV 89.6 fL (80-100); MPV 8.4 fL (7.6-11.3); RBC Red Blood Cell Count 3.16 M/uL (4.33-5.43)
[2023-02-01] MEDS: chlordiazePOXIDE HCl 5 MG CAP PO SCH ×2 (06:01→11:58)
[2023-02-01] MEDS: METOPROLOL TAR 25 MG TAB PO SCH ×2 (06:01→17:06)
[2023-02-01 06:22] LABS: Albumin 2.4 g/dL (3.4-5.0); Bilirubin Total 1.5 mg/dL (0.2-1.0); Magnesium 1.5 mg/dL (1.6-2.4); Phosphorus 2.3 mg/dL (2.5-4.9); Potassium 3.6 mEq/L (3.5-5.1); Protein, Total 6.9 g/dL (6.4-8.2)
[2023-02-01] MEDS: INSULIN -REGULAR HUMAN 50 UNIT/0.5 ML ML SQ SCH ×4 (07:30→21:00)
[2023-02-01 08:33] LABS: Anisocytosis 1+; Blood Morphology Comment NOTED (NOT SEEN); Platelet Estimate DECR; Polychromasia 1+; White Blood Cell Scan OK (OK)
[2023-02-01] MEDS: PANTOPRAZOLE 40 MG INJ IVP SCH ×2 (09:04→21:14)
[2023-02-01] MEDS: SUCRALFATE 1 GM TABLET PO SCH ×4 (09:05→21:14)
[2023-02-01] MEDS: ENOXAPARIN 40 MG/0.4 ML SQ SCH (09:05)
[2023-02-01] MEDS: ASPIRIN 81 MG CHEWABLE TABLET PO SCH (09:05)
[2023-02-01] MEDS: LORazepam 2 MG/ML VIAL IV PRN ×2 (11:58→17:16)
[2023-02-01] MEDS: MORPHINE 2 MG/ML SYR IV PRN (13:45)
[2023-02-01] MEDS ORDERED: chlordiazePOXIDE HCl 25 MG CAP PO ONE (14:37)
[2023-02-01] MEDS ORDERED: ZIPRASIDONE MESYLA 20 MG/VIAL IM PRN (14:38)
[2023-02-01] MEDS ORDERED: LACTULOSE 20 GM/30 ML UCUP PO ONE (14:39)
--- NOTE | 2023-02-01 17:02 | EKG ---
Test Date: 2023-02-01 Test Time: 11:17:46 Nurses' Registry Director: FALLON MEASUREMENT RESULTS: Intervals: Rate: 83 [place]: 140 QRSD: 84 QT: 414 QTc: 486 [place]: P: 33 [place]: 140 QRS: -2 T: 31 INTERPRETIVE STATEMENTS: Normal sinus rhythm Prolonged QT Abnormal ECG Compared to ECG 01/31/2023 05:36:20 Prolonged QT interval now present Electronically Signed On 02-01-23 17:01:48 CDT by Donnell Giraldo
[2023-02-01] MEDS: LACTULOSE 20 GM/30 ML UCUP PO SCH (17:06)
[2023-02-01] MEDS: chlordiazePOXIDE HCl 25 MG CAP PO SCH (17:06)
[2023-02-01] MEDS: DEXMEDETOMIDINE HCL 200 MCG in NA CHLORIDE 0.9% 98 ML IV SCH ×2 (21:00→22:45)
[2023-02-01] MEDS ORDERED: NA CHLORIDE 0.9% 100 ML ONE (21:09)
[2023-02-01] MEDS ORDERED: DEXMEDETOMIDINE HCL 200 MCG/2 ML VIAL ONE (21:09)
[2023-02-01] MEDS: ATORVASTATIN 40 MG TAB PO SCH (21:14)
[2023-02-01] MEDS ORDERED: HYDROMORPHONE HCL 0.5 MG/0.5 ML INJ IV PRN (21:39)
--- NOTE | 2023-02-01 23:14 | CON ---
Date of Consultation: 02/01/2023 Reason For Consultation: Chest pain. History Of Present Illness: This is a 57-year-old male with history of hypertension and heavy alcoho l drinker, reported that he presented with chest pain. I evaluated him by bedside. He was confused, not making sense, and he was shaking. Past Medical History: As outlined above in the HPI. Medication: Refer reconciliation sheet for detailed list. Allergies: NO KNOWN DRUG ALLERGIES. Family History: No premature coronary artery disease or cancer. Social History: He is an active alcohol drinker actually on daily basis. Does not use any drugs. Review of Systems: All systems reviewed and they are negative except as mentioned in HPI. Physical Examination: Vital Signs: Reviewed. Head and Neck: Pupils are equal, reactive to light. Intact eye movements. No JVD. No cervical lym phadenopathy. Neck is supple. Thyroid is not enlarged. Lungs: Clear to auscultation bilaterally. No rhonchi, wheezing, or crackles. No accessory muscle u se. Heart: Regular rate and rhythm. No extra sounds. Abdomen: Soft, nontender. Bowel sounds positive. No organomegaly. No masses or hernia. No rigidi ty or rebound. Extremities: No edema, clubbing, cyanosis. Intact pulses. Skin: No rash was noted. Neuro: Alert, awake, oriented x3. No acute focal deficits appreciated. Investigations: BUN 10, creatinine 0.72, and hemoglobin is 9.1. Assessment/recommendation: 1.Chest pain. The patient is a poor historian. I believe at this moment he is having active alcoho l withdrawal. He is confused and lethargic. He will need a stress test which can be done once he is clinically stable but at this point, I feel the pressing issue is alcohol withdrawal. 2.Alcohol dependence and alcohol withdrawal symptoms. The patient is already on benzodiazepine and and being monitored very closely. 3.Dyslipidemia, on statin. SR/MODL Voice ID: [id number] Report ID: [id number]
[2023-02-02] MEDS ORDERED: METOPROLOL TARTRATE 5 MG/5 ML INJ IV STA (01:03)
[2023-02-02] MEDS ORDERED: METOPROLOL TARTRATE 5 MG/5 ML INJ IV PRN (01:04)
[2023-02-02] MEDS: DEXMEDETOMIDINE HCL 200 MCG in NA CHLORIDE 0.9% 98 ML IV SCH ×4 (01:25→22:08)
[2023-02-02] MEDS ORDERED: THIAMINE 200 MG/2 ML INJ ONE (01:43)
[2023-02-02] MEDS ORDERED: NA CHLORIDE 0.9% 0 ML ONE (01:43)
[2023-02-02 05:33] LABS: Absolute Lymphocytes (CBC) 1.3 K/uL (0.7-4.9); Hematocrit 29.8 % (39.6-49.0); Lymphocytes % 20.1 % (15.3-44.8); MCV 89.5 fL (80-100); MPV 8.8 fL (7.6-11.3); RBC Red Blood Cell Count 3.32 M/uL (4.33-5.43)
[2023-02-02] MEDS: chlordiazePOXIDE HCl 25 MG CAP PO SCH ×5 (05:50→23:25)
[2023-02-02] MEDS: METOPROLOL TAR 25 MG TAB PO SCH ×2 (05:50→17:01)
[2023-02-02] MEDS: LACTULOSE 20 GM/30 ML UCUP PO SCH ×5 (05:50→23:25)
[2023-02-02 06:59] LABS: Albumin 2.5 g/dL (3.4-5.0); Bilirubin Total 1.3 mg/dL (0.2-1.0); Magnesium 1.5 mg/dL (1.6-2.4); Protein, Total 7.6 g/dL (6.4-8.2)
[2023-02-02] MEDS ORDERED: Magnesium Sulfate 2gm IVPB 2 G/50 ML BAG IV ONE ×2 (07:18→08:27)
[2023-02-02] MEDS ORDERED: POTASSIUM 25 MEQ EFFERV TAB PO ONE (07:18)
[2023-02-02] MEDS: INSULIN -REGULAR HUMAN 50 UNIT/0.5 ML ML SQ SCH ×4 (07:30→21:00)
[2023-02-02] MEDS ORDERED: POTASSIUM PHOS 30 MM in NA CHLORIDE 0.9% 500 ML IV ONE (08:27)
--- NOTE | 2023-02-02 08:27 | P.PN ---
Date of Service: 02/01/23 Subjective Doing well this morning people but he started getting confused and not really answering questions appropriately. Physical Examination - Vitals reviewed - Physical Exam General: Alert, Oriented x3, Other (Quiet, refuses to answer questions, flat affect) Respiratory: Clear to auscultation bilaterally, Normal air movement Cardiovascular: No edema, Normal pulses, Normal S1 S2 Gastrointestinal: Normal bowel sounds, Non-distended Musculoskeletal: No clubbing, No swelling Integumentary: No rashes, No breakdown Neurological: Normal speech, Normal strength at 5/5 x4 extr, Other (Flat affect) Assessment and Plan - Assessment/Plan Assessment plan 1. Chest pain rule out [place] 2. Abdominal pain 3. Cholelithiasis without CT evidence of acute cholecystitis 4. Alcohol use 5. Cirrhosis 6. Alcohol abuse 7. Hypocalcemia -High-sensitivity troponin -Echocardiogram -Repeat EKG -Work-up for other etiologies of chest pain if troponins remain negative -Lipid profile -Rubbing Bed Operator regarding modifying risk for cardiac disease -DT prevention -GI/DVT prophylaxis
[2023-02-02] MEDS: FOLIC ACID 1 MG, MULTIVITAMINS INJ 10 ML, THIAMINE HCL 100 MG in NA CHLORIDE 0.9% 1,000 ML IV SCH (08:30)
[2023-02-02] MEDS: ZIPRASIDONE MESYLA 20 MG/VIAL IM PRN ×2 (08:30→21:23)
[2023-02-02] MEDS: PANTOPRAZOLE 40 MG INJ IVP SCH ×2 (08:30→21:23)
[2023-02-02] MEDS: ENOXAPARIN 40 MG/0.4 ML SQ SCH (08:31)
[2023-02-02] MEDS: SUCRALFATE 1 GM TABLET PO SCH ×4 (08:31→21:00)
[2023-02-02] MEDS: ASPIRIN 81 MG CHEWABLE TABLET PO SCH (08:31)
[2023-02-02] MEDS: ATORVASTATIN 40 MG TAB PO SCH (21:21)
[2023-02-02] MEDS: WATER FOR INJ,STERILE 10 ML IM PRN (21:22)
--- NOTE | 2023-02-02 21:33 | P.PN ---
Date of Service: 02/02/23 Subjective In DTs; on precedex; PPI and needs lactulose for elevated ammonia Physical Examination - Vitals reviewed - Physical Exam General: Alert, confused Respiratory: Clear to auscultation bilaterally, Normal air movement Cardiovascular: No edema, Normal pulses, Normal S1 S2 Gastrointestinal: Normal bowel sounds, Non-distended Musculoskeletal: No clubbing, No swelling Integumentary: No rashes, No breakdown Neurological: confused with weakness Assessment and Plan - Assessment/Plan Assessment plan 1. Delirium tremens 2. Abdominal pain 3. Cholelithiasis 4. Alcohol use 5. Cirrhosis 6. Alcohol abuse 7. Hypocalcemia -on precedex -Echocardiogram reviewed -Monitor on tele -Librium -outpt stress test -EGD -GI/DVT prophylaxis
[2023-02-02] MEDS ORDERED: DEXMEDETOMIDINE HCL 200 MCG/2 ML VIAL ONE (23:41)
[2023-02-02] MEDS ORDERED: NA CHLORIDE 0.9% 100 ML ONE (23:41)
[2023-02-03] MEDS: DEXMEDETOMIDINE HCL 200 MCG in NA CHLORIDE 0.9% 98 ML IV SCH ×2 (05:15→21:45)
[2023-02-03] MEDS: chlordiazePOXIDE HCl 25 MG CAP PO SCH ×2 (05:28→13:14)
[2023-02-03] MEDS: LACTULOSE 20 GM/30 ML UCUP PO SCH ×3 (05:28→17:32)
[2023-02-03] MEDS: METOPROLOL TAR 25 MG TAB PO SCH ×2 (05:29→17:29)
[2023-02-03] MEDS: INSULIN -REGULAR HUMAN 50 UNIT/0.5 ML ML SQ SCH ×4 (07:30→20:39)
[2023-02-03] MEDS ORDERED: METOPROLOL TARTRATE 5 MG/5 ML INJ IV STA (08:43)
[2023-02-03] MEDS: ENOXAPARIN 40 MG/0.4 ML SQ SCH (09:00)
[2023-02-03] MEDS: PANTOPRAZOLE 40 MG INJ IVP SCH ×2 (09:45→20:39)
[2023-02-03] MEDS: FOLIC ACID 1 MG, MULTIVITAMINS INJ 10 ML, THIAMINE HCL 100 MG in NA CHLORIDE 0.9% 1,000 ML IV SCH (09:45)
[2023-02-03] MEDS: ASPIRIN 81 MG CHEWABLE TABLET PO SCH (09:45)
[2023-02-03] MEDS: SUCRALFATE 1 GM TABLET PO SCH ×4 (09:45→20:00)
[2023-02-03] MEDS: chlordiazePOXIDE HCl 5 MG CAP PO SCH (20:00)
[2023-02-03] MEDS: ATORVASTATIN 40 MG TAB PO SCH (20:01)
[2023-02-03] MEDS: ZIPRASIDONE MESYLA 20 MG/VIAL IM PRN (20:03)
[2023-02-03] MEDS: WATER FOR INJ,STERILE 10 ML IM PRN (20:03)
[2023-02-04] MEDS: DEXMEDETOMIDINE HCL 200 MCG in NA CHLORIDE 0.9% 98 ML IV SCH (01:33)
[2023-02-04] MEDS: chlordiazePOXIDE HCl 5 MG CAP PO SCH ×3 (05:00→20:32)
[2023-02-04] MEDS: METOPROLOL TAR 25 MG TAB PO SCH ×2 (06:00→17:05)
[2023-02-04] MEDS: LACTULOSE 20 GM/30 ML UCUP PO SCH ×5 (06:00→23:13)
[2023-02-04 06:39] LABS: Absolute Lymphocytes (CBC) 1.4 K/uL (0.7-4.9); Hematocrit 33.3 % (39.6-49.0); Lymphocytes % 14.1 % (15.3-44.8); MPV 8.9 fL (7.6-11.3)
[2023-02-04 06:52] LABS: Albumin 2.4 g/dL (3.4-5.0); Bilirubin Total 0.9 mg/dL (0.2-1.0); Magnesium 1.9 mg/dL (1.6-2.4); Potassium 3.7 mEq/L (3.5-5.1); Protein, Total 7.1 g/dL (6.4-8.2)
[2023-02-04] MEDS: INSULIN -REGULAR HUMAN 50 UNIT/0.5 ML ML SQ SCH ×4 (07:30→20:33)
[2023-02-04] MEDS: SUCRALFATE 1 GM TABLET PO SCH ×4 (08:23→20:32)
[2023-02-04] MEDS: ASPIRIN 81 MG CHEWABLE TABLET PO SCH (08:23)
[2023-02-04] MEDS: PANTOPRAZOLE 40 MG INJ IVP SCH ×2 (08:23→20:32)
[2023-02-04] MEDS: FOLIC ACID 1 MG, MULTIVITAMINS INJ 10 ML, THIAMINE HCL 100 MG in NA CHLORIDE 0.9% 1,000 ML IV SCH (08:33)
[2023-02-04] MEDS: ENOXAPARIN 40 MG/0.4 ML SQ SCH ×2 (08:34→08:57)
[2023-02-04] MEDS: ACETAMINOPHEN 500 MG TAB PO PRN (20:31)
[2023-02-04] MEDS: ATORVASTATIN 40 MG TAB PO SCH (20:32)
[2023-02-04] MEDS: ALPRAZOLAM 0.25 MG TABLET PO PRN (20:32)
[2023-02-05] MEDS: LACTULOSE 20 GM/30 ML UCUP PO SCH ×2 (05:29→11:38)
[2023-02-05] MEDS: METOPROLOL TAR 25 MG TAB PO SCH (05:29)
[2023-02-05] MEDS: chlordiazePOXIDE HCl 5 MG CAP PO SCH (05:29)
[2023-02-05 05:36] LABS: Magnesium 1.8 mg/dL (1.6-2.4); Phosphorus 2.8 mg/dL (2.5-4.9); Potassium 3.7 mEq/L (3.5-5.1)
[2023-02-05 05:49] VITALS: BMI 24.7
[2023-02-05] MEDS: INSULIN -REGULAR HUMAN 50 UNIT/0.5 ML ML SQ SCH ×2 (07:13→11:30)
[2023-02-05] MEDS ORDERED: MAGNESIUM SULFATE 1 gm IVPB 1 GM/100 ML BAG IV ONE (08:00)
[2023-02-05] MEDS: PANTOPRAZOLE 40 MG INJ IVP SCH (08:23)
[2023-02-05] MEDS: ASPIRIN 81 MG CHEWABLE TABLET PO SCH (08:23)
[2023-02-05] MEDS: SUCRALFATE 1 GM TABLET PO SCH ×2 (08:27→11:38)
[2023-02-05] MEDS: ENOXAPARIN 40 MG/0.4 ML SQ SCH (08:35)
[2023-02-05] MEDS ORDERED: POTASSIUM 25 MEQ EFFERV TAB PO ONE (09:00)
[2023-02-05] MEDS: FOLIC ACID 1 MG, MULTIVITAMINS INJ 10 ML, THIAMINE HCL 100 MG in NA CHLORIDE 0.9% 1,000 ML IV SCH (10:08)
--- NOTE | 2023-02-05 10:25 | P.PN ---
Date of Service: 02/03/23 Subjective Patient is currently doing well with no new complaints. Patient's delirium tremens are improved. Continue with lactulose. Working on discharge planning. Physical Examination - Vitals reviewed - Physical Exam General: Alert, oriented to person place and time Respiratory: Clear to auscultation bilaterally, Normal air movement Cardiovascular: No edema, Normal pulses, Normal S1 S2 Gastrointestinal: Normal bowel sounds, Non-distended Musculoskeletal: No clubbing, No swelling Integumentary: No rashes, No breakdown Neurological: confused with weakness Assessment and Plan - Assessment/Plan Assessment plan 1. Delirium tremens 2. Abdominal pain 3. Cholelithiasis 4. Alcohol use 5. Cirrhosis 6. Alcohol abuse 7. Hypocalcemia -Wean off of Precedex -Echocardiogram reviewed -Monitor on telemetry -Librium tapering dose -outpt stress test -EGD as an outpt -GI/DVT prophylaxis
--- NOTE | 2023-02-05 10:26 | P.PN ---
Date of Service: 02/04/23 Subjective Patient is currently doing well with no new complaints. Plan was to discharge home but were not able to get a ride. We will work on placement with family. Physical Examination - Vitals reviewed - Physical Exam General: Alert, oriented to person place and time Respiratory: Clear to auscultation bilaterally, Normal air movement Cardiovascular: No edema, Normal pulses, Normal S1 S2 Gastrointestinal: Normal bowel sounds, Non-distended Musculoskeletal: No clubbing, No swelling Integumentary: No rashes, No breakdown Neurological: confused with weakness Assessment and Plan - Assessment/Plan Assessment plan 1. Delirium tremens 2. Abdominal pain 3. Cholelithiasis 4. Alcohol use 5. Cirrhosis 6. Alcohol abuse 7. Hypocalcemia -Echocardiogram outpt -Monitor on telemetry -Librium tapering dose -outpt stress test -EGD as an outpt -GI/DVT prophylaxis
[2023-02-05 11:03] VITALS: O2SAT 99
[2023-02-05 13:07] VITALS: BP 132/80; TEMP 98
== END 2023-02-05 12:50 | disposition home or self-care (01) | DRG 897 ==
LOC: ER 17:55 → ERHOLD 19:41 → 4TH 21:37 → OBSVTOIN 02-01 14:37 → 3RD-ICU 02-01 20:47
PROVIDERS: ADMIT Hospitalist; ATTEND Hospitalist
PROC: 30233N1 Transfusion of Nonautologous Red Blood Cells into Peripheral Vein, Percutaneous Approach (ICD-10-PCS; principal; 2023-01-30)
DX: F10.221 Alcohol dependence with intoxication delirium (principal); F10.231 Alcohol dependence with withdrawal delirium; K70.31 Alcoholic cirrhosis of liver with ascites; K80.80 Other cholelithiasis without obstruction; I10 Essential (primary) hypertension; D50.9 Iron deficiency anemia, unspecified; E78.5 Hyperlipidemia, unspecified; E83.51 Hypocalcemia; K21.9 Gastro-esophageal reflux disease without esophagitis; F17.210 Nicotine dependence, cigarettes, uncomplicated; Z86.73 Personal history of transient ischemic attack (TIA), and cerebral infarction without residual deficits; Z79.899 Other long term (current) drug therapy; Y90.8 Blood alcohol level of 240 mg/100 ml or more
CPT/HCPCS: 36415; 36430; 71045; 71275; 74175; 80048; 80053; 80061; 80076; 80307; 81003; 82077; 82140; 82607; 82947; 83540; 83690; 83735; 83880; 84100; 84132; 84484; 85025; 85044; 85610; 86850; 86900; 86901; 86920; 92610; 93005; 96365; 96375; 97161; 99285; C9113; G0378; J1170; J1650; J2270; J2405; J3411; J3475; J3486; J7030; J7040; J7050; P9016; Q9967

== ENCOUNTER 2023-07-27 13:46 | Inpatient (IN) | payer SELFPAY ==
[2023-07-27] MEDS ORDERED: THIAMINE 200 MG/2 ML INJ ONE (14:29)
[2023-07-27] MEDS ORDERED: FOLIC ACID 5 MG/ML VIAL ONE (14:30)
[2023-07-27] MEDS ORDERED: MULTIVITAMINS 10 ML VIAL (INJ) IV ONE (14:30)
[2023-07-27] MEDS ORDERED: NA CHLORIDE 0.9% 2,000 ML ONE (14:32)
[2023-07-27 14:33] LABS: Absolute Lymphocytes (CBC) 1.1 K/uL (0.7-4.9); Hematocrit 26.4 % (39.6-49.0); Lymphocytes % 21.4 % (15.3-44.8); MCV 90.1 fL (80-100); Platelets 183 thou/uL (152-406); RBC Red Blood Cell Count 2.93 M/uL (4.33-5.43)
[2023-07-27 14:42] LABS: Protime INR 1.49
[2023-07-27 14:49] LABS: SARS-CoV-2 Antigen Rapid Res Negative (Negative)
[2023-07-27 14:58] LABS: ALT/SGPT 30 U/L (16-61); AST/SGOT 56 U/L (15-37); Albumin 2.5 g/dL (3.4-5.0); Alkaline Phosphatase 149 U/L (45-117); BUN Blood Urea Nitrogen 10 mg/dL (7-18); Bicarbonate 25 mEq/L (21-32); Bilirubin Direct 0.8 mg/dL (0-0.2); Bilirubin Indirect, Calculated 0.5 mg/dL (0.2-0.8); Bilirubin Total 1.3 mg/dL (0.2-1.0); C-Reactive Protein < 2.90 mg/L (<3.00); Glomerular Filtration Rate 98 ml/min (=/>90); Glucose Level 95 mg/dL (74-106); Lipase 40 U/L (13-75); Magnesium 1.4 mg/dL (1.6-2.4); NT PRO-BNP 96 pg/mL (<125); Potassium 3.8 mEq/L (3.5-5.1); Protein, Total 7.4 g/dL (6.4-8.2); Sodium Level 135 mEq/L (136-145); Troponin High Sensitivity 8.3 pg/mL (<58.9)
--- NOTE | 2023-07-27 15:04 | RAD REPORT ---
EXAM DESCRIPTION: CT - Head Brain Wo Cont - 07/27/2023 2:38 pm CLINICAL HISTORY: Numbness;TIA COMPARISON: Head angio dated 07/27/2023; Neck Angio dated 07/27/2023 TECHNIQUE: Noncontrast head CT images were obtained without IV contrast. Multiplanar reformats were generated and reviewed. All CT scans are performed using dose optimization technique as appropriate and may include automated exposure control or mA/KV adjustment according to patient size. FINDINGS: No intracranial hemorrhage, mass, or edema. Midline structures are unremarkable. Normal ventricular caliber for age. Montiel-white matter differentiation is preserved, without evidence of acute infarct. No abnormal extra- axial fluid collections. Mastoid air cells and visualized portions of the paranasal sinuses are clear. No acute bony findings. IMPRESSION: No evidence of an acute intracranial process.
[2023-07-27 15:06] LABS: Anisocytosis 1+; Blood Morphology Comment NOTED (NOT SEEN); Platelet Estimate ADEQ; White Blood Cell Scan OK (OK)
[2023-07-27 15:07] LABS: Target Cells 1+
--- NOTE | 2023-07-27 15:11 | RAD REPORT ---
EXAM DESCRIPTION: CT - Head angio - 07/27/2023 2:38 pm CLINICAL HISTORY: TIA COMPARISON: No comparisons TECHNIQUE: Axial CT angiography images of the head was performed with multiplanar and maximum intens ity projection reconstructions. Images performed following intravenous administration of 100mL Isovue 370. All CT scans are performed using dose optimization technique as appropriate and may include automated exposure control or mA/KV adjustment according to patient size. FINDINGS: No evidence of large vessel occlusion. No evidence of aneurysm or dissection flap is detec rancho. No flow-limiting stenosis or vascular malformation identified. Antegrade flow is seen in the vertebral arteries. The right vertebral artery is diminutive, likely on developmental basis. Patent bilateral posterior communicating arteries with relatively diminutive ca liber of the basilar artery as well. The visualized dural venous sinuses are grossly patent. IMPRESSION: No evidence of large vessel occlusion or flow-limiting stenosis.
--- NOTE | 2023-07-27 15:27 | RAD REPORT ---
EXAM DESCRIPTION: CT - Neck Angio - 07/27/2023 2:38 pm CLINICAL HISTORY: NUMBNESS COMPARISON: No comparisons TECHNIQUE: Axial CT angiography images of the head was performed with multiplanar and maximum intens ity projection reconstructions. Images performed following intravenous administration of 100mL Isovue 370. All CT scans are performed using dose optimization technique as appropriate and may include automated exposure control or mA/KV adjustment according to patient size. Quantification of carotid stenosis, if any, is performed according to NASCET criteria. FINDINGS: A left aortic arch is identified with normal three vessel configuration of the great vesse ls. No significant flow abnormality is seen of the common carotid bilaterally. No significant stenosis is identified involving the cervical segments of both internal carotid arteri es. Normal flow is seen within both vertebral arteries. Small to moderate layering right pleural effusion. IMPRESSION: No significant flow abnormality of the neck vessels is identified. Small to moderate right layering pleural effusion. CAROTID STENOSIS REFERENCE USING NASCET CRITERIA: % ICA stenosis = (1 - narrowest ICA diameter/diameter of distal cervical ICA) x 100. Mild - <50% stenosis. Moderate - 50-69% stenosis. Severe - 70-94% stenosis. Near occlusion - 95-99% stenosis. Occluded - 100% stenosis.
--- NOTE | 2023-07-27 16:09 | RAD REPORT ---
EXAM DESCRIPTION: RADChest Single View07/27/2023 2:49 pm CLINICAL HISTORY: COUGH COMPARISON: Chest Single View dated 01/30/2023; Chest Single View dated 01/15/2023; Chest Single View dated 12/14/2022; Chest Single View dated 05/20/2022; Angio Aorta For Dissection dated 01/30/2023 TECHNIQUE: Portable AP view of the chest. FINDINGS: Patchy right basilar airspace opacity may relate to atelectasis for pneumonia. Small right effusion component may be present. No pneumothorax or sizable effusion. The cardiomediastinal conto urs are unremarkable. IMPRESSION: Patchy right basilar airspace opacity, possibly with small effusion, may relate to atele ctasis or pneumonia.
--- NOTE | 2023-07-27 16:13 | RAD REPORT ---
EXAM DESCRIPTION: RAD - Humerus Left - 07/27/2023 2:47 pm CLINICAL HISTORY: PAIN COMPARISON: No comparisons TECHNIQUE: Left Humerus, 3 views. FINDINGS: No fracture is identified. There is no dislocation or periosteal reaction noted. No forei gn body or other soft tissue abnormality. IMPRESSION: Negative left humerus examination.
--- NOTE | 2023-07-27 16:14 | RAD REPORT ---
EXAM DESCRIPTION: RAD - Forearm Left - 07/27/2023 2:48 pm CLINICAL HISTORY: PAIN COMPARISON: Humerus Left dated 07/27/2023 TECHNIQUE: Left forearm, 2 views. FINDINGS: No fracture is identified. There is no dislocation or periosteal reaction noted. Vascular calcifications. No foreign body or other soft tissue abnormality. IMPRESSION: Negative left forearm radiographs.
[2023-07-27 16:24] LABS: Specific Gravity > 1.030 (1.005-1.030); Urine Bacteria None Seen /HPF (<20); Urine Bilirubin NEGATIVE (Negative); Urine Blood Negative (Negative); Urine Clarity Clear (Clear); Urine Color Yellow (Yellow); Urine Glucose NEGATIVE (Negative); Urine Mucus Slight /HPF (None Seen); Urine Protein NEGATIVE (Negative); Urine RBC <5 /HPF (None Seen); Urine Urobilinogen 2+ (Normal)
--- NOTE | 2023-07-27 16:26 | RAD REPORT ---
EXAM DESCRIPTION: CT - C Spine Wo Con - 07/27/2023 3:27 pm CLINICAL HISTORY: Multiple falls COMPARISON: None. TECHNIQUE: Axial thin cut noncontrast CT images of the cervical spine were obtained with sagittal an d coronal reconstruction images generated and reviewed. All CT scans are performed using dose optimization technique as appropriate and may include automated exposure control or mA/KV adjustment according to patient size. FINDINGS: Cervical body height and alignment are normal. Stable mild degenerative changes with anter ior osteophytosis and mild degrees of disc height loss. Bilateral facet arthropathy most pronounced o n the left at C7-T1 and on the right at C2-3 and C3-4, stable. No fracture or acute bony abnormality. No paraspinal mass or hematoma. IMPRESSION: No acute fracture or subluxation of the cervical spine. Stable degenerative changes as a juan josé.
--- NOTE | 2023-07-27 16:28 | RAD REPORT ---
EXAM DESCRIPTION: MRI - Brain Wo Cont - 07/27/2023 3:15 pm CLINICAL HISTORY: TIA COMPARISON: Head CT and CT angiogram of the same day.. TECHNIQUE: Multiplanar multisequence MRI of the brain performed without IV contrast. FINDINGS: Mild motion artifact somewhat limits evaluation. No evidence of acute infarct or other diffusion signal abnormality. No evidence of acute intracranial hemorrhage or abnormal extra-axial fluid collections. Mild diffuse parenchymal volume loss. Ventricular caliber otherwise within normal for age. Midline st ructures are unremarkable. Scattered subcortical and deep white matter T2/FLAIR hyperintensities, nonspecific, but suggestive of chronic small vessel ischemic changes. No mass effect or midline shift. Major vascular flow voids are preserved. Mastoid air cells patchy opacification on the right. Paranasal sinuses are well aerated. IMPRESSION: No acute intracranial process. No evidence of ventriculomegaly or mass effect. Chronic findings as above.
--- NOTE | 2023-07-27 16:32 | RAD REPORT ---
EXAM DESCRIPTION: CT - Chest Abd Pelvis Wo Con - 07/27/2023 3:27 pm CLINICAL HISTORY: MULTIPLE FALLS COMPARISON: No comparisons TECHNIQUE: Thin axial CT images of the chest, abdomen, and pelvis, performed without IV contrast. Mu ltiplanar reformats were generated and reviewed. All CT scans are performed using dose optimization technique as appropriate and may include automated exposure control or mA/KV adjustment according to patient size. FINDINGS: Small bilateral layering effusions, larger on the right, with underlying segmental airspac e opacification, may represent atelectasis, however underlying pneumonia cannot be entirely excluded. Heart is normal in size. No pericardial effusion.No intrathoracic adenopathy. The liver, spleen, pancreas, adrenal glands and kidneys are within normal limits. No bowel obstruction, free air, or abnormal fluid collections. Mild free perihepatic ascites. Few gal lstones layering dependently. Contrast excretion within the collecting systems bilaterally limits alejandra luation for renal calculi, without evidence of hydroureteronephrosis. No pathologic lymphadenopathy in the abdomen or pelvis. Multiple healing/ healed left rib fractures. IMPRESSION: Small bilateral layering effusions larger on the right. Underlying segmental airspace op acification may relate to atelectasis however underlying pneumonia cannot be entirely excluded. Mild free perihepatic ascites. Cholelithiasis. Multiple healing/ healed left rib fractures.
--- NOTE | 2023-07-27 16:48 | EDPHYS ---
Physician Documentation [facility] Name: Fan Lei Jr Age: 57 yrs Sex: Male : 1965 Arrival Date: 07/27/2023 Time: 13:46 Bed 6 Private MD: ED Physician Bubba Flanagan HPI: 07/27 15:12 This 57 yrs old Male presents to ER via Wheelchair with complaints of General zaria Weakness, Altered Mental Status, Chest Pain, Arm Pain. 15:12 The patient presents with confusion, decreased mental status. Onset: The zaria symptoms/episode began/occurred 3 day(s) ago. Possible causes: alcohol, low blood sugar, seizure, sepsis. Associated signs and symptoms: Pertinent positives: confusion, gait abnormality, lightheadedness. Current symptoms: In the emergency department the patient's symptoms are unchanged from the initial presentation. Patient's baseline: Neuro: alert and fully oriented. The patient has experienced similar episodes in the past, multiple times. 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 - Social history:: Smoking status: unknown. ROS: 15:17 Constitutional: Negative for fever, chills, and weight loss, Eyes: Negative for injury, zaria pain, redness, and discharge, ENT: Negative for injury, pain, and discharge, Neck: Negative for injury, pain, and swelling, Cardiovascular: Negative for chest pain, palpitations, and edema, Respiratory: Negative for shortness of breath, cough, wheezing, and pleuritic chest pain, Abdomen/GI: Negative for abdominal pain, nausea, vomiting, diarrhea, and constipation, Back: Negative for injury and pain, : Negative for injury, bleeding, discharge, and swelling, Skin: Negative for injury, rash, and discoloration, Psych: Negative for depression, anxiety, suicide ideation, homicidal ideation, and hallucinations, Allergy/Immunology: Negative for hives, rash, and allergies, Endocrine: Negative for neck swelling, polydipsia, polyuria, polyphagia, and marked weight changes, 15:17 MS/extremity: Positive for decreased range of motion, pain, tenderness, of the left arm, Exam: 15:17 Constitutional: This is a well developed, well nourished patient who is awake, alert, zaria and in no acute distress. Head/Face: Normocephalic, atraumatic. Eyes: Pupils equal round and reactive to light, extra-ocular motions intact. Lids and lashes normal. Conjunctiva and sclera are non-icteric and not injected. Cornea within normal limits. Periorbital areas with no swelling, redness, or edema. ENT: Nares patent. No nasal discharge, no septal abnormalities noted. Tympanic membranes are normal and external auditory canals are clear. Oropharynx with no redness, swelling, or masses, exudates, or evidence of obstruction, uvula midline. Mucous membranes moist. Neck: Trachea midline, no thyromegaly or masses palpated, and no cervical lymphadenopathy. Supple, full range of motion without nuchal rigidity, or vertebral point tenderness. No Meningismus. Chest/axilla: Normal chest wall appearance and motion. Nontender with no deformity. No lesions are appreciated. Cardiovascular: Regular rate and rhythm with a normal S1 and S2. No gallops, murmurs, or rubs. Normal PMI, no JVD. No pulse deficits. Respiratory: Lungs have equal breath sounds bilaterally, clear to auscultation and percussion. No rales, rhonchi or wheezes noted. No increased work of breathing, no retractions or nasal flaring. Abdomen/GI: Soft, non-tender, with normal bowel sounds. No distension or tympany. No guarding or rebound. No evidence of tenderness throughout. Back: No spinal tenderness. No costovertebral tenderness. Full range of motion. MS/ Extremity: Pulses equal, no cyanosis. Neurovascular intact. Full, normal range of motion. Neuro: Awake and alert, GCS 15, oriented to person, place, time, and situation. Cranial nerves II-XII grossly intact. Motor strength 5/5 in all extremities. Sensory grossly intact. Cerebellar exam normal. Normal gait. Psych: Awake, alert, with orientation to person, place and time. Behavior, mood, and affect are within normal limits. 15:49 ECG was reviewed by the Attending Physician. [facility] Vital Signs: 13:44 BP 116 / 76; Pulse 79; Resp 16; Pulse Ox 98% on R/A; tl4 13:50 BP 116 / 76; Pulse 76; Resp 17 S; Temp 98.4(O); Pulse Ox 98% on R/A; aa5 15:27 BP 131 / 82; Pulse 76; Resp 18; Pulse Ox 98% on R/A; tl4 17:03 BP 134 / 75; Pulse 106; Resp 20; Pulse Ox 98% on R/A; Pain 8/10; tl4 19:22 BP 127 / 85; Pulse 103; Resp 21; Pulse Ox 98% on R/A; tl4 17:03 Pain Scale: Adult tl4 MDM: 13:51 Patient medically screened. zaria 13:51 Patient medically screened. zaria 15:50 Differential diagnosis: closed fracture, contusion, abrasion, tendonitis. Differential zaria Diagnosis altered mental status, sepsis, flu. Differential Diagnosis: CVA, electrolyte abnormality, intracranial bleed, overdose, pneumonia, seizure, sepsis, volume depletion. Data reviewed: vital signs, nurses notes, lab test result(s), EKG, radiologic studies, CT scan, MRI, plain films. Consideration of Admission/Observation Escalation of care including admission/observation considered. I considered the following discharge prescriptions or medication management in the emergency department Medications were administered in the Emergency Department. See MAR. Independent interpretation of the following test(s) in the Emergency Department EKG: See my EKG interpretation above. Test considered but Not performed: Ultrasound no abd usg. Historians other than the Patient: Spouse/Significant Other: daughter, well informed. Care significantly affected by the following chronic conditions: Congestive Heart Failure, Liver Disease, gerd, alcohol dependence, gerd. Counseling: I had a detailed discussion with the patient and/or guardian regarding the historical points, exam findings, and any diagnostic results supporting the discharge/admit diagnosis, lab results, radiology results, the need for further work-up and treatment in the hospital. 07/27 13:53 Order name: Basic Metabolic Panel; Complete Time: 15:03 [facility] 07/27 13:53 Order name: CBC with Diff; Complete Time: 16:19 [facility] 07/27 13:53 Order name: LFT's; Complete Time: 15:03 07/27 13:53 Order name: Magnesium; Complete Time: 15:03 [facility] 07/27 13:53 Order name: NT PRO-BNP; Complete Time: 15:03 zaria 07/27 13:53 Order name: PT-INR; Complete Time: 14:53 zaria 07/27 13:53 Order name: Troponin HS; Complete Time: 15:03 zaria 07/27 13:53 Order name: Lipase; Complete Time: 15:03 zaria 07/27 13:53 Order name: Urinalysis w/ reflexes; Complete Time: 16:41 zaria 07/27 13:53 Order name: Type And Screen; Complete Time: 16:19 zaria 07/27 13:53 Order name: SARS RAPID; Complete Time: 14:53 zaria 07/27 13:53 Order name: Flu; Complete Time: 15:03 zaria 07/27 13:54 Order name: CRP; Complete Time: 15:03 zaria 07/27 14:08 Order name: AMMONIA; Complete Time: 14:53 zaria 07/27 14:08 Order name: Alcohol Level; Complete Time: 14:53 zaria 07/27 14:50 Order name: CREATININE WHOLE BLOOD; Complete Time: 14:53 EDMS 07/27 15:07 Order name: CBC Smear Scan; Complete Time: 16:19 EDMS 07/27 17:35 Order name: NT PRO-BNP EDMS 07/27 17:35 Order name: T4 Free EDMS 07/27 17:35 Order name: Urinalysis w/ reflexes EDMS 07/27 17:35 Order name: Basic Metabolic Panel EDMS 07/27 17:35 Order name: Basic Metabolic Panel EDMS 07/27 17:35 Order name: CBC with Automated Diff EDMS 07/27 17:35 Order name: CBC with Automated Diff EDMS 07/27 17:35 Order name: Comprehensive Metabolic Panel EDMS 07/27 17:35 Order name: Comprehensive Metabolic Panel EDMS 07/27 17:35 Order name: Comprehensive Metabolic Panel EDMS 07/27 17:35 Order name: Comprehensive Metabolic Panel EDMS 07/27 17:35 Order name: Lipid Profile EDMS 07/27 17:35 Order name: Lipid Profile EDMS 07/27 17:35 Order name: Magnesium EDMS 07/27 17:35 Order name: Magnesium EDMS 07/27 17:35 Order name: Magnesium EDMS 07/27 17:35 Order name: Magnesium EDMS 07/27 17:35 Order name: NT PRO-BNP EDMS 07/27 17:35 Order name: NT PRO-BNP EDMS 07/27 17:35 Order name: Phosphorus EDMS 07/27 17:35 Order name: Phosphorus EDMS 07/27 17:35 Order name: Phosphorus EDMS 07/27 17:35 Order name: Phosphorus EDMS 07/27 20:07 Order name: Alcohol Serum/Plasma EDMS 07/27 13:53 Order name: XRAY Chest (1 view); Complete Time: 16:19 zaria 07/27 13:53 Order name: CT Head Brain wo Cont; Complete Time: 16:19 zaria 07/27 13:53 Order name: CT Head Angio; Complete Time: 16:19 zaria 07/27 13:53 Order name: CT Neck Angio; Complete Time: 16:19 zaria 07/27 13:55 Order name: Humerus Left XRAY; Complete Time: 16:19 [facility] 07/27 13:55 Order name: Forearm Left XRAY; Complete Time: 16:19 zaria 07/27 14:54 Order name: Brain Wo Cont; Complete Time: 16:41 EDMS 07/27 15:15 Order name: C Spine Wo Con; Complete Time: 16:41 EDMS 07/27 15:15 Order name: Chest Abd Pelvis Wo Con; Complete Time: 16:41 EDSC 07/27 13:53 Order name: EKG; Complete Time: 13:54 [facility] 07/27 13:53 Order name: Cardiac monitoring; Complete Time: 14:22 [facility] 07/27 13:53 Order name: EKG - Nurse/Tech; Complete Time: 01:06 [facility] 07/27 13:53 Order name: IV Saline Lock; Complete Time: 14:21 [facility] 07/27 13:53 Order name: Labs collected and sent; Complete Time: 14:21 [facility] 07/27 13:53 Order name: O2 Per Protocol; Complete Time: 14:21 [facility] 07/27 13:53 Order name: O2 Sat Monitoring; Complete Time: 14:21 [facility] 07/27 15:04 Order name: IV Saline Lock - Large Bore; Complete Time: 15:11 [facility] EC:49 Rate is 72 beats/min. Rhythm is regular. QRS [place] is Normal. RI interval is normal. QRS zaria interval is prolonged at 488 msec. QT interval is normal. T waves are Normal. No ST changes noted. Clinical impression: NSR w/ Non-specific ST/T Changes and No evidence of ischemia. Interpreted by me. Reviewed by me. Administered Medications: 15:34 Drug: Banana Bag - (Multivitamin IV 1 amp, NS 0.9% IV 1000 ml, Thiamine IV 100 mg, tl4 foLIC Acid IVPB 1 mg) IV at 125 ml/hr once Route: IV; Rate: 125 ml/hr; Site: right upper arm; Delivery: Dial-a-flow; 07/28 02:31 Follow up: IV Status: Completed infusion; IV Intake: 1000ml as6 07/27 15:35 Drug: foLIC Acid IVPB 1 mg IVPB once Route: IVPB; Site: right upper arm; Delivery: tl4 Dial-a-flow; 07/28 02:31 Follow up: Response: No adverse reaction; IV Status: Completed infusion; IV Intake: [id number] 07/27 15:35 Drug: NS 0.9% IV 1000 ml IV at 1 bolus Per protocol; 1000 mL bolus Route: IV; Rate: 1 tl4 bolus; Site: right upper arm; 17:38 Follow up: Response: No adverse reaction; IV Status: Completed infusion; IV Intake: tl4 1000ml 17:38 Drug: Magnesium Sulfate IVPB 1 grams IVPB once over 1 hrs Route: IVPB; Rate: 100 ml/hr; tl4 Infused Over: 1 hrs; Site: right upper arm; Delivery: Dial-a-flow; 19:10 Follow up: Response: No adverse reaction; IV Status: Completed infusion; IV Intake: tl4 100ml 21:52 Drug: Lactulose PO 60 grams 45 ml PO once Volume: 45 ml; Route: PO; tl4 07/28 02:31 Follow up: Response: No adverse reaction as6 Disposition Summary: 07/27/23 16:47 Hospitalization Ordered Notes: Hospitalization Status: Inpatient Admission zaria Provider: Susan Gandhi zaria Condition: Fair zaria Problem: new zaria Symptoms: have improved zaria Bed/Room Type: Standard zaria Location: Telemetry/MedSurg (Inpatient)(07/28/23 14:35) aa5 Room Assignment: 402(07/28/23 14:35) aa5 Diagnosis - Repeated falls zaria - Fall on same level, unspecified zaria - Alcoholic cirrhosis of liver with ascites - mild ascites zaria - Anemia, unspecified zaria - Hypomagnesemia zaria - Abnormal coagulation profile zaria - Metabolic encephalopathy - hepatic zaria - Pleural effusion in other conditions classified elsewhere zaria Forms: - Medication Reconciliation Form zaria - SBAR form zaria - Leadership Thank You Letter zaria Signatures: Dispatcher [employer] Bubba Cotton MD MD cha Calderon, Audri, RN RN aa5 John Bacon RN RN as6 Guille Garcia tl4 Corrections: (The following items were deleted from the chart) 07/27 14:54 13:54 MR STROKE PROTOCOL+MRI.RAD.BRZ ordered. EDSC EDMS : 16:47 Telemetry/MedSurg (Inpatient) zaria as6 : 16:47 zaria as6 07/28 14:35 07/27 21:09 [facility] ER HOLD as6 aa5 07/28 14:35 07/27 21:09 ERHOLD- as6 aa5
--- NOTE | 2023-07-27 16:48 | ER ---
Nurse's Notes [facility] Name: Fan Lei Jr Age: 57 yrs Sex: Male : 1965 Arrival Date: 07/27/2023 Time: 13:46 Bed 6 Private MD: Diagnosis: Repeated falls;Fall on same level, unspecified;Alcoholic cirrhosis of liver with ascites-mild ascites;Anemia, unspecified;Hypomagnesemia;Abnormal coagulation profile;Metabolic encephalopathy-hepatic;Pleural effusion in other conditions classified elsewhere Presentation: 07/27 13:50 Coronavirus screen: At this time, the client does not indicate any symptoms associated aa5 with coronavirus-19. Ebola Screen: Patient denies travel to an Ebola-affected area in the 21 days before illness onset. Initial Sepsis Screen: Does the patient meet any 2 criteria? No. Patient's initial sepsis screen is negative. Does the patient have a suspected source of infection? No. Patient's initial sepsis screen is negative. Risk Assessment: Do you want to hurt yourself or someone else? Patient reports no desire to harm self or others. Onset of symptoms was June 2023. 13:50 Acuity: KITA 2 aa5 13:50 Method Of Arrival: Wheelchair aa5 13:50 Chief complaint: Pt's sister/caregiver reports generalized weakness, frequent falls, aa5 confusion, chest pain, and left arm pain. Reports pt was recently at a hospital in [facility] for GI bleed and was released on Monday. Triage Assessment: 14:05 General: Appears ill, Behavior is cooperative. 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 - Social history:: Smoking status: unknown. Screenin:10 [facility] ED Fall Risk Assessment (Adult) History of falling in the last 3 months, tl4 including since admission Yes- fall prone (multiple falls) (3 pts) Confusion or Disorientation Yes (5 pts) Intoxicated or Sedated No (0 pts) Impaired Gait Yes (1 pt) Mobility Assist Device Used No (0 pt) Altered Elimination Yes (1 pt) Score/Fall Risk Level 3 or more points = High Risk Oriented to surroundings, Maintained a safe environment, Educated pt \\T\\ family on fall prevention, incl call for assistance when getting out of bed, Assessed \\T\\ reinforced patient's understanding of fall precautions, Provided non-skid footwear, Hourly rounding (assess needs \\T\\ fall precautionary measures) done, Used ambulatory aids as needed (educated on \\T\\ assisted with), Used gait belt as appropriate Remained with patient while ambulating. Abuse screen: Denies threats or abuse. Denies injuries from another. Nutritional screening: No deficits noted. Tuberculosis screening: No symptoms or risk factors identified. Assessment: 14:15 Reassessment: No changes from previously documented assessment. Patient and/or family tl4 updated on plan of care and expected duration. Pain level reassessed. Patient states symptoms have not improved. Pain: Complains of pain in left arm, GENERALIZED BODY ACHES. Vital Signs: 13:44 BP 116 / 76; Pulse 79; Resp 16; Pulse Ox 98% on R/A; tl4 13:50 BP 116 / 76; Pulse 76; Resp 17 S; Temp 98.4(O); Pulse Ox 98% on R/A; aa5 15:27 BP 131 / 82; Pulse 76; Resp 18; Pulse Ox 98% on R/A; tl4 17:03 BP 134 / 75; Pulse 106; Resp 20; Pulse Ox 98% on R/A; Pain 8/10; tl4 19:22 BP 127 / 85; Pulse 103; Resp 21; Pulse Ox 98% on R/A; tl4 17:03 Pain Scale: Adult tl4 ED Course: 13:50 Patient arrived in ED. zaria 13:50 Arm band placed on. aa5 13:51 Bubba Flanagan MD is Attending Physician. zaria 13:59 Triage completed. aa5 14:03 Lizandro Summers, RN is Primary Nurse. bp 14:05 Patient has correct armband on for positive identification. Placed in gown. Bed in low tl4 position. Call light in reach. Side rails up X2. Adult w/ patient. Provided Education on: ED PROCESS. Client placed on continuous cardiac and pulse oximetry monitoring. NIBP monitoring applied. hospital monitor on. Door closed. Lights dimmed. Warm blanket given. Pillow given. Head of bed lowered. 14:21 Basic Metabolic Panel Sent. tl4 14:21 CBC with Diff Sent. tl4 14:22 LFT's Sent. tl4 14:22 Magnesium Sent. tl4 14:22 NT PRO-BNP Sent. tl4 14:22 PT-INR Sent. tl4 14:22 Troponin HS Sent. tl4 14:22 Lipase Sent. tl4 14:22 CRP Sent. tl4 14:22 Type And Screen Sent. tl4 14:22 Flu Sent. tl4 14:22 SARS RAPID Sent. tl4 14:23 Alcohol Level Sent. tl4 14:23 AMMONIA Sent. tl4 14:39 CT Head Brain wo Cont In Process Unspecified. EDMS 14:40 CT Head Angio In Process Unspecified. EDMS 14:40 CT Neck Angio In Process Unspecified. EDMS 14:48 XRAY Chest (1 view) In Process Unspecified. EDMS 14:48 Humerus Left XRAY In Process Unspecified. EDMS 14:48 Forearm Left XRAY In Process Unspecified. EDMS 14:54 Brain Wo Cont In Process Unspecified. EDMS 15:29 C Spine Wo Con In Process Unspecified. EDMS 15:29 Chest Abd Pelvis Wo Con In Process Unspecified. EDMS 16:13 Urinalysis w/ reflexes Sent. tl4 16:45 Susan Gandhi MD is Hospitalizing Provider. [facility] 07/28 13:20 No provider procedures requiring assistance completed. tl4 16:17 Patient admitted, IV remains in place. ko1 Administered Medications: 07/27 15:34 Drug: Banana Bag - (Multivitamin IV 1 amp, NS 0.9% IV 1000 ml, Thiamine IV 100 mg, tl4 foLIC Acid IVPB 1 mg) IV at 125 ml/hr once Route: IV; Rate: 125 ml/hr; Site: right upper arm; Delivery: Dial-a-flow; 07/28 02:31 Follow up: IV Status: Completed infusion; IV Intake: 1000ml as6 07/27 15:35 Drug: foLIC Acid IVPB 1 mg IVPB once Route: IVPB; Site: right upper arm; Delivery: tl4 Dial-a-flow; 07/28 02:31 Follow up: Response: No adverse reaction; IV Status: Completed infusion; IV Intake: [id number] 07/27 15:35 Drug: NS 0.9% IV 1000 ml IV at 1 bolus Per protocol; 1000 mL bolus Route: IV; Rate: 1 tl4 bolus; Site: right upper arm; 17:38 Follow up: Response: No adverse reaction; IV Status: Completed infusion; IV Intake: tl4 1000ml 17:38 Drug: Magnesium Sulfate IVPB 1 grams IVPB once over 1 hrs Route: IVPB; Rate: 100 ml/hr; tl4 Infused Over: 1 hrs; Site: right upper arm; Delivery: Dial-a-flow; 19:10 Follow up: Response: No adverse reaction; IV Status: Completed infusion; IV Intake: tl4 100ml 21:52 Drug: Lactulose PO 60 grams 45 ml PO once Volume: 45 ml; Route: PO; tl4 07/28 02:31 Follow up: Response: No adverse reaction as6 Medication: 02:37 VIS not applicable for this client. as6 Intake: 07/27 17:38 IV: 1000ml; Total: 1000ml. tl4 19:10 IV: 100ml; Total: 1100ml. tl4 07/28 02:31 IV: 1000ml; Total: 2100ml. as6 02:31 IV: 50ml; Total: 2150ml. as6 Outcome: 07/27 16:47 Decision to Hospitalize by Provider. zaria 07/28 02:37 Admitted to ER Hold. Please see [facility] for further documentation. as6 Condition: stable Instructed on the need for admit, 17:27 Patient left the ED. ko1 Signatures: Dispatcher [employer] EDBubba Lr MD MD cha Calderon, Audri RN RN aa5 Lizandro Summers RN RN bp Slawson, Ashby, RN RN as6 Brit Hollis RN RN ko1 Guille Garcia tl4 Corrections: (The following items were deleted from the chart) 07/27 14:00 13:50 Chief complaint: Pt's sister/caregiver reports generalized weakness, frequent aa5 falls, confusion, chest pain, and left arm pain. Reports pt was recently at a hospital in [facility] and was released on Monday. aa5
[2023-07-27] MEDS ORDERED: ACETAMINOPHEN 500 MG TAB PO PRN (17:25)
[2023-07-27] MEDS ORDERED: ALBUTEROL 2.5 MG/3 ML NEB SOL NEB PRN (17:25)
[2023-07-27] MEDS ORDERED: FLUMAZENIL 0.1 MG/ML (5 mL VIAL) IV PRN (17:25)
[2023-07-27] MEDS ORDERED: MAGNESIUM SULFATE 1 gm IVPB 1 GM/100 ML BAG IV ONE (17:27)
--- NOTE | 2023-07-27 17:42 | P.HP ---
Certification for Inpatient With expected LOS: <2 Midnights <Fausto Palmerlamar - Last Filed: 07/27/23 18:16> Patient History Date of Service: 07/27/23 Reason for admission: Hepatic encephalopathy History of Present Illness: Mr. Lei 57-year-old male patient with a history of alcoholic dependence, cirrhosis of liver, congestive heart failure, GI bleed, and memory issues due to alcoholism presented to ER via wheelchair with complaints of generalized weakness, altered mental status, chest pain and arm pain. Patient's symptoms began 3 days ago. Patient is positive for increased confusion and decreased mental status gait abnormality, and lightheadedness. Patient denies chest pain, shortness of breath, fever, chills, abdominal pain, nausea or vomiting. Patient had experienced similar episodes in the past multiple times. ED course Vital signs blood pressure 116/76, pulse of 76, respirations 17, temperature 98.4, pulse ox 98% on room air. EKG showing normal sinus rhythm. Laboratory evaluationCBC showing anemia hemoglobin of 8.8 with hematocrit 26.4, metabolic panel reassuring, hypomagnesemia, of magnesium 1.4, elevated hepatic panel AST of 56, ALT of 30, ammonia level 58. Chest x-ray showing patchy by basilar airspace opacity, possibly with a small effusion may related to atelectasis or pneumonia. CT - Chest Abd Pelvis Wo Con - 07/27/2023-IMPRESSION: Small bilateral layering effusions larger on the right. Underlying segmental airspace opacification may relate to atelectasis however underlying pneumonia cannot be entirely excluded. Admitting the patient with a diagnosis of hepatic encephalopathy, liver cirrhosis, anemia, hypomagnesemia, and repeated falls. - Past Medical/Surgical History Diabetic: No -: cirrhosis of liver -: CHF -: Gerd -: GI bleed -: alcohol dependence -: EtOH abuse -: Cirrhosis of liver -: Congestive heart failure -: GERD -: GI bleeding - Social History Smoking Status: Former smoker Alcohol use: Yes CD- Drugs: No Caffeine use: No Place of Residence: Home <Fausto Palmerlamar - Last Filed: 07/27/23 18:16> Date of Service: 07/27/23 <Susan Gandhi - Last Filed: 07/27/23 18:28> Allergies No Known Allergies Allergy (Unverified 01/30/23 22:13) Home Medications: Aspirin Chewable [Aspirin Chewable*] 81 mg PO DAILY #30 tab.chew 02/04/23 Atorvastatin Calcium [Lipitor] 40 mg PO BEDTIME #30 tab 02/04/23 Lactulose [Cephulac*] 30 ml PO Q12HR #2000 ml 02/04/23 Metoprolol Tartrate [Lopressor*] 25 mg PO BID 6AM 6PM #60 tab 02/04/23 Sucralfate [Carafate*] 1 gm PO ACHS #120 tab 02/04/23 chlordiazePOXIDE HCl [Chlordiazepoxide HCl] 20 mg PO TID #70 cap 02/04/23 Review of Systems 10-point ROS is otherwise unremarkable <Pebbles Palmer - Last Filed: 07/27/23 18:16> Physical Examination - Physical Exam General: Alert, Oriented x1, Cooperative, Confused, Other HEENT: Atraumatic, Normocephalic Neck: Supple, 2+ carotid pulse no bruit Respiratory: Clear to auscultation bilaterally, Diminished (at the bases) Cardiovascular: No edema, Regular rate/rhythm Capillary refill: <2 Seconds Gastrointestinal: Normal bowel sounds, Soft and benign Musculoskeletal: No clubbing, No swelling Integumentary: No rashes, No breakdown Neurological: Normal speech, Normal tone - Studies Laboratory Data (last 24 hrs) 07/27/23 07/27/23 07/27/23 14:13 14:13 14:13 WBC 5.20 Hgb 8.8 L Hct 26.4 L Plt Count 183 PT 16.2 H INR 1.49 Sodium 135 L Potassium 3.8 BUN 10 Creatinine 0.91 Glucose 95 Magnesium 1.4 L Total Bilirubin 1.3 H AST 56 H ALT 30 Alkaline Phosphatase 149 H Lipase 40 Microbiology Data (last 24 hrs): 07/27/23 14:13 Nasopharnyx Influenza Type A Antigen Screen - Final 07/27/23 14:13 Nasopharnyx Influenza Type B Antigen Screen - Final <Pebbles Palmer - Last Filed: 07/27/23 18:16> - Studies Laboratory Data (last 24 hrs) 07/27/23 07/27/23 07/27/23 14:13 14:13 14:13 WBC 5.20 Hgb 8.8 L Hct 26.4 L Plt Count 183 PT 16.2 H INR 1.49 Sodium 135 L Potassium 3.8 BUN 10 Creatinine 0.91 Glucose 95 Magnesium 1.4 L Total Bilirubin 1.3 H AST 56 H ALT 30 Alkaline Phosphatase 149 H Lipase 40 Microbiology Data (last 24 hrs): 07/27/23 14:13 Nasopharnyx Influenza Type A Antigen Screen - Final 07/27/23 14:13 Nasopharnyx Influenza Type B Antigen Screen - Final <Susan Gandhi - Last Filed: 07/27/23 18:28> Assessment and Plan - Problems (Diagnosis) (1) Hepatic encephalopathy Current Visit: Yes Status: Acute (2) Alcoholic cirrhosis of liver Current Visit: Yes Status: Acute (3) Anemia Current Visit: Yes Status: Acute Qualifiers: Anemia type: unspecified type Qualified Code(s): D64.9 - Anemia, unspecified (4) Hypomagnesemia Current Visit: Yes Status: Acute (5) Congestive heart failure Current Visit: Yes Status: Acute (6) GERD (gastroesophageal reflux disease) Current Visit: Yes Status: Chronic Qualifiers: Esophagitis presence: without esophagitis Qualified Code(s): K21.9 - Gastro-esophageal reflux disease without esophagitis (7) Memory problem Current Visit: Yes Status: Chronic (8) Pneumonia Current Visit: Yes Status: Acute Qualifiers: Pneumonia type: due to unspecified organism Laterality: bilateral (9) Falls Current Visit: Yes Status: Acute Qualifiers: Encounter type: sequela Qualified Code(s): W19.XXXS - Unspecified fall, sequela - Plan - Esophagitis presence: without esophagitis Qualified Code(s): K21.9 - Gastro- esophageal reflux disease without esophagitis Hepatic encephalopathy Alcoholic cirrhosis of liver Memory problems Hypomagnesemia Repeated falls Patient was brought to the hospital with increased weakness, altered mental status, chest pain Vital signs blood pressure 116/76, pulse of 76, respirations 17, temperature 98.4, pulse ox 98% on room air. EKG showing normal sinus rhythm. Laboratory evaluationCBC showing anemia hemoglobin of 8.8 with hematocrit 26.4, metabolic panel reassuring, hypomagnesemia, of magnesium 1.4, elevated hepatic panel AST of 56, ALT of 30, ammonia level 58. - Ethanol level = ordered - Blood cultures x 2 drawn - Urinalysis = done - CT head = done - Medication review = none - EEG normal sinus rhythm - Management plan: - Thiamine 500 mg IV x 1, followed by 100 mg IV daily -Lactulose 20 g p.o. twice daily -Rifaximin 550mg po bid -IV fluids started, banana bag, close monitoring fall precautions -Monitor and replete electrolytes Pneumonia: Chest x-ray showing patchy by basilar airspace opacity, possibly with a small effusion may related to atelectasis or pneumonia. Patient denies shortness of breath, chest discomfort Vital signs stable, WBC is normal We will continue to monitor the patient Did on empiric antibiotics for CAP History of CHF -Chronic, no edema no shortness of breath -Will reconcile the home medication and restart as appropriate -Ordered echo Anemia Chronic, no reports of melena, patient has history of GI bleeding will continue to monitor CODE STATUSfull Dietregular DVT prophylaxisLovenox Discharge Plan: Home Plan to discharge in: 48 Hours - Advance Directives Does patient have a Living Will: Yes Does patient have a Durable POA for Healthcare: No - Code Status/Comfort Care Code Status Assessed: Yes (full code) Code Status: Full Code Physician Review: Patient Assessed, Agree with Above Assessment and Plan Critical Care: No Time Spent Managing Pts Care (In Minutes): 55 (minutes) <Pebbles Palmer - Last Filed: 07/27/23 18:16> - Plan Pt seen and examined. I agree with the note by the CLINICAL RESEARCH SCIENTIST. Pt is a 57 yo male with past medical history of alcohol dependence, cirrhosis of liver, Congestive heart failure, GERD and GI bleed who presents with AMS and multiple falls at home. His family brought him to the Er for alcohol withdrawal symptoms. On admission, lab studies showed Na 135, Cr 0.91, K 3.8, Ammonnia 58, AST 56, ALT 30, Alk phos 149, MAg 1.4, Alcohol level is < 10, COVID is negative. At bedside, pt is confused. A/P: Acute metabolic encephalopathy: Ammonia is 58. Will give lactulose and rif aximin. Will monitor mental status Possible pna: Pt is not septic. Will continue rocephin and azithro and follow up blood cx. Hypomagnesemia: mag is 1.4. Will replete andmonitor Multiple falls: Likely due to orthostatic hypotension. Will check orthostatic vital sign, Echo and carotid ultrasound. Will continue fall precaution Hx of liver cirrhosis: Noted. Will monitor LFTs Hx of Alcohol abuse: Alcohol level is < 10. Pt is currently sober. Hx of CHF: Will continue home meds Deconditioning: will consult PT. GERD: protonix Code: full <Susan Gandhi - Last Filed: 07/27/23 18:28>
[2023-07-27] MEDS ORDERED: MAGNESIUM 50% 3 GM in NA CHLORIDE 0.9% 100 ML IV ONE (17:45)
[2023-07-27] MEDS: ENOXAPARIN 40 MG/0.4 ML SQ SCH (18:00)
[2023-07-27] MEDS: AZITHROMYCIN IV 500 MG in NA CHLORIDE 0.9% 250 ML IVPB SCH (18:00)
[2023-07-27] MEDS: NA CHLORIDE 0.9% 1,000 ML IV SCH (18:00)
[2023-07-27] MEDS ORDERED: LACTULOSE 20 GM/30 ML UCUP ONE (20:19)
[2023-07-27] MEDS: LACTULOSE 20 GM/30 ML UCUP PO SCH (21:00)
[2023-07-27] MEDS: CEFTRIAXONE 1,000 MG in NA CHLORIDE 0.9% 50 ML IVPB SCH (21:00)
[2023-07-27] MEDS: Rifaximin 550 MG Tab PO SCH (21:00)
[2023-07-27] MEDS ORDERED: CEFTRIAXONE 1000 MG/VIAL ONE (22:10)
[2023-07-27] MEDS ORDERED: NA CHLORIDE 0.9% 250 ML ONE (22:10)
[2023-07-27] MEDS ORDERED: AZITHROMYCIN 500 MG INJ IVPB ONE (22:10)
[2023-07-27] MEDS ORDERED: NA CHLORIDE 0.9% 1,000 ML ONE (22:11)
[2023-07-27] MEDS ORDERED: ENOXAPARIN 40 MG/0.4 ML SQ ONE (22:11)
[2023-07-27] MEDS ORDERED: NA CHLORIDE 0.9% 50 ML ONE (22:11)
[2023-07-28 02:39] VITALS: BMI 24.5
[2023-07-28] MEDS: NA CHLORIDE 0.9% 1,000 ML IV SCH ×4 (04:00→20:32)
[2023-07-28 05:00] LABS: Absolute Lymphocytes (CBC) 0.9 K/uL (0.7-4.9); Hematocrit 25.3 % (39.6-49.0); Lymphocytes % 13.8 % (15.3-44.8); MCV 90.4 fL (80-100); MPV 7.8 fL (7.6-11.3); Platelets 193 thou/uL (152-406); RBC Red Blood Cell Count 2.79 M/uL (4.33-5.43)
[2023-07-28 05:19] LABS: Albumin 2.2 g/dL (3.4-5.0); Magnesium 1.6 mg/dL (1.6-2.4); Phosphorus 3.4 mg/dL (2.5-4.9); Potassium 3.8 mEq/L (3.5-5.1); Protein, Total 6.5 g/dL (6.4-8.2)
[2023-07-28] MEDS ORDERED: INFLUENZA VACCINE (for 6+ mo) 0.5 ML DOSE IMVAC ONE (08:00)
[2023-07-28] MEDS: LACTULOSE 20 GM/30 ML UCUP PO SCH ×2 (09:00→20:29)
[2023-07-28] MEDS: Rifaximin 550 MG Tab PO SCH ×2 (09:00→20:27)
[2023-07-28] MEDS: FOLIC ACID 1 MG, MULTIVITAMINS INJ 10 ML, THIAMINE HCL 100 MG in NA CHLORIDE 0.9% 1,000 ML IV SCH (09:00)
[2023-07-28] MEDS: CEFTRIAXONE 1,000 MG in NA CHLORIDE 0.9% 50 ML IVPB SCH ×2 (09:00→20:27)
[2023-07-28] MEDS: ENOXAPARIN 40 MG/0.4 ML SQ SCH (09:00)
[2023-07-28] MEDS: AZITHROMYCIN IV 500 MG in NA CHLORIDE 0.9% 250 ML IVPB SCH (09:00)
--- NOTE | 2023-07-28 10:01 | P.PN ---
Subjective Date of Service: 07/28/23 Chief Complaint: Hepatic encephalopathy Subjective: No new changes, Improving, Doing well Patient is alert and confused Sitting up in the bed NAD Denies any pain or shortness of breath Vital stable <Pebbles Palmer - Last Filed: 07/28/23 09:54> Date of Service: 07/29/23 <Susan Gandhi - Last Filed: 07/29/23 13:41> Review of Systems 10-point ROS is otherwise unremarkable <Pebbles Palmer - Last Filed: 07/28/23 09:54> Physical Examination - Vital Signs Temperature: 98.6 F Blood Pressure: 142/78 Pulse: 93 Respirations: 16 Pulse Ox (%): 99 - Physical Exam General: Alert, Confused HEENT: Atraumatic, Normocephalic Neck: Supple, 2+ carotid pulse no bruit Respiratory: Clear to auscultation bilaterally, Normal air movement Cardiovascular: No edema, Normal pulses Capillary refill: <2 Seconds Gastrointestinal: Normal bowel sounds, Soft and benign Musculoskeletal: No clubbing, No swelling Integumentary: No rashes, No breakdown, No significant lesion Neurological: Normal speech, Normal tone, Normal affect, Other (confused) - Studies Laboratory Data (last 24 hrs) 07/27/23 07/27/23 07/27/23 14:13 14:13 14:13 WBC 5.20 Hgb 8.8 L Hct 26.4 L Plt Count 183 PT 16.2 H INR 1.49 Sodium 135 L Potassium 3.8 BUN 10 Creatinine 0.91 Glucose 95 Magnesium 1.4 L Total Bilirubin 1.3 H AST 56 H ALT 30 Alkaline Phosphatase 149 H Lipase 40 Microbiology Data (last 24 hrs): 07/27/23 14:13 Nasopharnyx Influenza Type A Antigen Screen - Final 07/27/23 14:13 Nasopharnyx Influenza Type B Antigen Screen - Final <PalmerPebbles cleveland - Last Filed: 07/28/23 09:54> Assessment And Plan - Current Problems (Diagnosis) (1) Hepatic encephalopathy Current Visit: Yes Status: Acute (2) Alcoholic cirrhosis of liver Current Visit: Yes Status: Acute (3) Anemia Current Visit: Yes Status: Acute Qualifiers: Anemia type: unspecified type Qualified Code(s): D64.9 - Anemia, unspecified (4) Hypomagnesemia Current Visit: Yes Status: Acute (5) Congestive heart failure Current Visit: Yes Status: Acute Qualifiers: Heart failure chronicity: unspecified (6) GERD (gastroesophageal reflux disease) Current Visit: Yes Status: Chronic Qualifiers: Esophagitis presence: without esophagitis Qualified Code(s): K21.9 - Gastro-esophageal reflux disease without esophagitis (7) Memory problem Current Visit: Yes Status: Chronic (8) Pneumonia Current Visit: Yes Status: Acute Qualifiers: Pneumonia type: due to unspecified organism Laterality: bilateral (9) Falls Current Visit: Yes Status: Acute Qualifiers: Encounter type: sequela Qualified Code(s): W19.XXXS - Unspecified fall, sequela - Plan - Esophagitis presence: without esophagitis Qualified Code(s): K21.9 - Gastro- esophageal reflux disease without esophagitis Hepatic encephalopathy Alcoholic cirrhosis of liver Memory problems Hypomagnesemia Repeated falls Improving, pt is alert but confused, denies any discomfort at this time Patient was brought to the hospital with increased weakness, altered mental status, chest pain Vital signs blood pressure 116/76, pulse of 76, respirations 17, temperature 98.4, pulse ox 98% on room air. EKG showing normal sinus rhythm. Laboratory evaluationCBC showing anemia hemoglobin of 8.8 with hematocrit 26.4, metabolic panel reassuring, hypomagnesemia, of magnesium 1.4, elevated hepatic panel AST of 56, ALT of 30, ammonia level 58. - Ethanol level = <10 - Blood cultures x 2 drawn - Urinalysis = done - CT head = done - Medication review = none - EEG normal sinus rhythm - Management plan: - Thiamine 500 mg IV x 1, followed by 100 mg IV daily -Lactulose 20 g p.o. twice daily -Rifaximin 550mg po bid -IV fluids started, banana bag, close monitoring fall precautions -Monitor and replete electrolytes Pneumonia: Chest x-ray showing patchy by basilar airspace opacity, possibly with a small effusion may related to atelectasis or pneumonia. Patient denies shortness of breath, chest discomfort Vital signs stable, WBC is normal We will continue to monitor the patient on empiric antibiotics for CAP History of CHF -Chronic, no edema no shortness of breath -Will reconcile the home medication and restart as appropriate -Ordered echo Anemia Chronic, no reports of melena, patient has history of GI bleeding BC showing anemia hemoglobin of 8.8>8.3 with hematocrit 26.4>25.3, will continue to monitor CODE STATUSfull Dietregular DVT prophylaxisLovenox Discharge Plan: Home Plan to discharge in: 48 Hours - Code Status/Comfort Care Code Status Assessed: Yes (full code) Code Status: Full Code Physician Review: Patient Assessed, Agree with Above Assessment and Plan Critical Care: No Time Spent Managing PTS Care (In Minutes): 35 (minutes) <Pebbles Palmer - Last Filed: 07/28/23 09:54> - Plan Pt seen and examined. I agree with the note by the CHILDBIRTH AND INFANT CARE TEACHER. Continue lactulose and rifaximin. <Susan Gandhi - Last Filed: 07/29/23 13:41>
[2023-07-28] MEDS ORDERED: NA CHLORIDE 0.9% 250 ML ONE (10:34)
[2023-07-28] MEDS ORDERED: CEFTRIAXONE 1000 MG/VIAL ONE (10:34)
[2023-07-28] MEDS ORDERED: AZITHROMYCIN 500 MG INJ IVPB ONE (10:34)
[2023-07-28] MEDS ORDERED: NA CHLORIDE 0.9% 1,000 ML ONE (10:34)
[2023-07-28] MEDS ORDERED: ENOXAPARIN 40 MG/0.4 ML SQ ONE (10:35)
[2023-07-28] MEDS ORDERED: NA CHLORIDE 0.9% 50 ML ONE (10:35)
[2023-07-28] MEDS ORDERED: LACTULOSE 20 GM/30 ML UCUP ONE (10:35)
--- NOTE | 2023-07-28 13:39 | EKG ---
Test Date: 2023-07-27 Test Time: 15:45:21 Stave Hewer: TL MEASUREMENT RESULTS: Intervals: Rate: 72 PA: 148 QRSD: 82 QT: 446 QTc: 488 [place]: P: 16 PA: 148 QRS: -16 T: 19 INTERPRETIVE STATEMENTS: Normal sinus rhythm Prolonged QT Abnormal ECG Compared to ECG 02/01/2023 11:17:46 No significant changes Electronically Signed On 07-28-23 13:38:50 MEDICAL INVESTIGATOR by Donnell Giraldo
[2023-07-29] MEDS: NA CHLORIDE 0.9% 1,000 ML IV SCH ×2 (06:58→20:00)
[2023-07-29 08:31] VITALS: O2SAT 97
[2023-07-29] MEDS: ENOXAPARIN 40 MG/0.4 ML SQ SCH (08:53)
[2023-07-29] MEDS: LACTULOSE 20 GM/30 ML UCUP PO SCH ×2 (08:53→20:33)
[2023-07-29] MEDS: CEFTRIAXONE 1,000 MG in NA CHLORIDE 0.9% 50 ML IVPB SCH (08:53)
[2023-07-29] MEDS: AZITHROMYCIN IV 500 MG in NA CHLORIDE 0.9% 250 ML IVPB SCH (08:53)
[2023-07-29] MEDS ORDERED: POTASSIUM 25 MEQ EFFERV TAB PO ONE (09:30)
[2023-07-29] MEDS: Rifaximin 550 MG Tab PO SCH ×2 (09:31→20:33)
[2023-07-29] MEDS: FOLIC ACID 1 MG, MULTIVITAMINS INJ 10 ML, THIAMINE HCL 100 MG in NA CHLORIDE 0.9% 1,000 ML IV SCH (09:31)
[2023-07-29 09:32] LABS: Albumin 2.1 g/dL (3.4-5.0); Bilirubin Total 1.3 mg/dL (0.2-1.0); Magnesium 1.5 mg/dL (1.6-2.4); Phosphorus 2.6 mg/dL (2.5-4.9); Potassium 3.7 mEq/L (3.5-5.1); Protein, Total 6.1 g/dL (6.4-8.2)
[2023-07-29] MEDS ORDERED: MAGNESIUM SULFATE 1 gm IVPB 1 GM/100 ML BAG IV ONE (10:00)
--- NOTE | 2023-07-29 12:10 | P.DS ---
Admission Date: 07/27/23 Discharge Date: 07/29/23 Reason for Admission: Hepatic encephalopathy - Problems (1) Hepatic encephalopathy Current Visit: Yes Status: Acute (2) Alcoholic cirrhosis of liver Current Visit: Yes Status: Acute (3) Anemia Current Visit: Yes Status: Acute Qualifiers: Anemia type: unspecified type Qualified Code(s): D64.9 - Anemia, unspecified (4) Hypomagnesemia Current Visit: Yes Status: Acute (5) Congestive heart failure Current Visit: Yes Status: Acute Qualifiers: Heart failure chronicity: unspecified (6) GERD (gastroesophageal reflux disease) Current Visit: Yes Status: Chronic Qualifiers: Esophagitis presence: without esophagitis Qualified Code(s): K21.9 - Gastro-esophageal reflux disease without esophagitis (7) Memory problem Current Visit: Yes Status: Chronic (8) Pneumonia Current Visit: Yes Status: Acute Qualifiers: Pneumonia type: due to unspecified organism Laterality: bilateral (9) Falls Current Visit: Yes Status: Acute Qualifiers: Encounter type: sequela Qualified Code(s): W19.XXXS - Unspecified fall, sequela Brief History of Present Illness: Mr. Lei 57-year-old male patient with a history of alcoholic dependence, cirrhosis of liver, congestive heart failure, GI bleed, and memory issues due to alcoholism presented to ER via wheelchair with complaints of generalized weakness, altered mental status, chest pain and arm pain. Patient's symptoms began 3 days ago. Patient is positive for increased confusion and decreased mental status gait abnormality, and lightheadedness. Patient denies chest pain, shortness of breath, fever, chills, abdominal pain, nausea or vomiting. Patient had experienced similar episodes in the past multiple times. ED course Vital signs blood pressure 116/76, pulse of 76, respirations 17, temperature 98.4, pulse ox 98% on room air. EKG showing normal sinus rhythm. Laboratory evaluationCBC showing anemia hemoglobin of 8.8 with hematocrit 26.4, metabolic panel reassuring, hypomagnesemia, of magnesium 1.4, elevated hepatic panel AST of 56, ALT of 30, ammonia level 58. Chest x-ray showing patchy by basilar airspace opacity, possibly with a small effusion may related to atelectasis or pneumonia. CT - Chest Abd Pelvis Wo Con - 07/27/2023-IMPRESSION: Small bilateral layering effusions larger on the right. Underlying segmental airspace opacification may relate to atelectasis however underlying pneumonia cannot be entirely excluded. Admitting the patient with a diagnosis of hepatic encephalopathy, liver cirrhosis, anemia, hypomagnesemia, and repeated falls. Hospital Course: Mr. Lei is a pleasant 57-year-old male patient with a past medical history significant for alcoholic dependence, cirrhosis of liver, congestive heart failure, GI bleed and memory issues due to alcoholism who was admitted to the [facility] on 07/27/2023 for after repeated falls anemia, hepatic encephalopathy. Patient was admitted in the hospital treated with the lactulose, rifaximin, IV fluid with multivitamin and folic acid and IV antibiotics. On 07/29/2019 4 patient was seen on morning rounds and deemed medically stable for discharge. Patient was discharged with instructions to schedule follow-up appointments with PCP in 3 to 5 days. Patient was provided prescriptions for lactulose. The patient was given the opportunity to ask questions and reported no further questions. Furthermore, all questions were answered to the best of my ability. 1. Please call and schedule a follow-up appointment with your PCP in 3-5 days - Please follow-up with your PCP for medication refills/adjustments -Please call if any questions regarding hospital stay -Please call nursing station at [phone] if any nursing or medication questions -Return to the emergency room if symptoms worsen. <Pebbles Palmer - Last Filed: 07/29/23 12:08> Admission Date: 07/27/23 Discharge Date: 07/30/23 Hospital Course: Pt seen and examined. I agree with the note by the NUT PACKER. ok to discharge pt <Susan Gandhi - Last Filed: 07/30/23 12:02> Disposition: ROUTINE DISCHARGE Discharge Condition: GOOD Vital Signs/Physical Exam: Temp Pulse Resp BP Pulse Ox 98.4 F 73 18 121/69 97 07/29/23 08:00 07/29/23 08:00 07/29/23 08:00 07/29/23 08:00 07/29/23 08:00 General: Alert, Oriented x2 HEENT: Atraumatic, Normocephalic Neck: Supple Respiratory: Clear to auscultation bilaterally, Normal air movement Cardiovascular: No edema, Normal pulses Capillary refill: <2 Seconds Gastrointestinal: Normal bowel sounds, Soft and benign Musculoskeletal: No clubbing, No swelling Integumentary: No rashes Neurological: Normal gait, Normal speech Laboratory Data at Discharge: WBC 6.50 thou/uL (4.3-10.9) 07/28/23 04:50 Hgb 8.3 g/dL (13.6-17.9) L 07/28/23 04:50 Hct 25.3 % (39.6-49.0) L 07/28/23 04:50 Plt Count 193 thou/uL (152-406) 07/28/23 04:50 PT 16.2 SECONDS (9.5-12.5) H 07/27/23 14:13 INR 1.49 07/27/23 14:13 Sodium 139 mEq/L (136-145) 07/29/23 09:02 Potassium 3.7 mEq/L (3.5-5.1) 07/29/23 09:02 BUN 7 mg/dL (7-18) 07/29/23 09:02 Creatinine 0.72 mg/dL (0.70-1.30) 07/29/23 09:02 Glucose 93 mg/dL (74-106) 07/29/23 09:02 Phosphorus 2.6 mg/dL (2.5-4.9) 07/29/23 09:02 Magnesium 1.5 mg/dL (1.6-2.4) L 07/29/23 09:02 Total Bilirubin 1.3 mg/dL (0.2-1.0) H 07/29/23 09:02 AST 42 U/L (15-37) H 07/29/23 09:02 ALT 27 U/L (16-61) 07/29/23 09:02 Alkaline Phosphatase 132 U/L (45-117) H 07/29/23 09:02 Triglycerides 53 mg/dL (<150) 07/28/23 04:50 Cholesterol 81 mg/dL (<200) 07/28/23 04:50 HDL Cholesterol 27 mg/dL (40-60) L 07/28/23 04:50 Cholesterol/HDL Ratio 3.00 07/28/23 04:50 Lipase 40 U/L (13-75) 07/27/23 14:13 <Pebbles Palmer - Last Filed: 07/29/23 12:08> Vital Signs/Physical Exam: Temp Pulse Resp BP Pulse Ox 98.4 F 78 18 135/67 98 07/30/23 08:00 07/30/23 08:00 07/30/23 08:00 07/30/23 08:00 07/30/23 08:00 Laboratory Data at Discharge: WBC 6.50 thou/uL (4.3-10.9) 07/28/23 04:50 Hgb 8.3 g/dL (13.6-17.9) L 07/28/23 04:50 Hct 25.3 % (39.6-49.0) L 07/28/23 04:50 Plt Count 193 thou/uL (152-406) 07/28/23 04:50 PT 16.2 SECONDS (9.5-12.5) H 07/27/23 14:13 INR 1.49 07/27/23 14:13 Sodium Cancelled 07/30/23 Unknown Potassium Cancelled 07/30/23 Unknown BUN Cancelled 07/30/23 Unknown Creatinine Cancelled 07/30/23 Unknown Glucose Cancelled 07/30/23 Unknown Phosphorus 2.2 mg/dL (2.5-4.9) L 07/30/23 06:40 Magnesium 1.5 mg/dL (1.6-2.4) L 07/30/23 06:40 Total Bilirubin 0.9 mg/dL (0.2-1.0) 07/30/23 06:40 AST 37 U/L (15-37) 07/30/23 06:40 ALT 25 U/L (16-61) 07/30/23 06:40 Alkaline Phosphatase 163 U/L (45-117) H D 07/30/23 06:40 Triglycerides 53 mg/dL (<150) 07/28/23 04:50 Cholesterol 81 mg/dL (<200) 07/28/23 04:50 HDL Cholesterol 27 mg/dL (40-60) L 07/28/23 04:50 Cholesterol/HDL Ratio 3.00 07/28/23 04:50 Lipase 40 U/L (13-75) 07/27/23 14:13 <Susan Gandhi - Last Filed: 07/30/23 12:02> Diet: Regular Activity: Ad franklyn Physician Review: Patient Assessed, Agree with Above Assessment and Plan Time spent managing pt's care (in minutes): 55 (Minutes) <Pebbles Palmer - Last Filed: 07/29/23 12:08> <Susan Gandhi - Last Filed: 07/30/23 12:02> Home Medications: Aspirin Chewable [Aspirin Chewable*] 81 mg PO DAILY #30 tab.chew 02/04/23 Atorvastatin Calcium [Lipitor] 40 mg PO BEDTIME #30 tab 02/04/23 Lactulose [Cephulac*] 30 ml PO Q12HR #2000 ml 02/04/23 Metoprolol Tartrate [Lopressor*] 25 mg PO BID 6AM 6PM #60 tab 02/04/23 Sucralfate [Carafate*] 1 gm PO ACHS #120 tab 02/04/23 chlordiazePOXIDE HCl [Chlordiazepoxide HCl] 20 mg PO TID #70 cap 02/04/23 Lactulose [Cephulac*] 30 ml PO BID 30 Days #450 ml 07/29/23 New Medications: Lactulose [Cephulac*] 30 ml PO BID 30 Days #450 ml Physician Discharge Instructions: Mr. Lei is a pleasant 57-year-old male patient with a past medical history significant for alcoholic dependence, cirrhosis of liver, congestive heart failure, GI bleed and memory issues due to alcoholism who was admitted to the [facility] on 07/27/2023 for after repeated falls anemia, hepatic encephalopathy. Patient was admitted in the hospital treated with the lactulose, rifaximin, IV fluid with multivitamin and folic acid and IV antibiotics. On 07/29/2019 4 patient was seen on morning rounds and deemed medically stable for discharge. Patient was discharged with instructions to schedule follow-up appointments with PCP in 3 to 5 days. Patient was provided prescriptions for lactulose. The patient and family members were given the opportunity to ask questions and reported no further questions. Furthermore, all questions were answered to the best of my ability. 1. Please call and schedule a follow-up appointment with your PCP ( [text]) in 3-5 days - Please follow-up with your PCP for medication refills/adjustments -Please call if any questions regarding hospital stay -Please call nursing station at [phone] if any nursing or medication questions -Return to the emergency room if symptoms worsen. Followup: NONE,NONE [Primary Care Provider] -
[2023-07-30] MEDS: NA CHLORIDE 0.9% 1,000 ML IV SCH (05:20)
[2023-07-30 07:37] LABS: Albumin 2.1 g/dL (3.4-5.0); Bilirubin Total 0.9 mg/dL (0.2-1.0); Magnesium 1.5 mg/dL (1.6-2.4); Phosphorus 2.2 mg/dL (2.5-4.9); Potassium 3.8 mEq/L (3.5-5.1); Protein, Total 6.3 g/dL (6.4-8.2)
[2023-07-30] MEDS: Rifaximin 550 MG Tab PO SCH (08:15)
[2023-07-30] MEDS: LACTULOSE 20 GM/30 ML UCUP PO SCH (08:15)
[2023-07-30] MEDS: ENOXAPARIN 40 MG/0.4 ML SQ SCH (08:15)
[2023-07-30] MEDS ORDERED: AZITHROMYCIN IV 500 MG in NA CHLORIDE 0.9% 250 ML IVPB SCH (09:00)
[2023-07-30] MEDS ORDERED: CEFTRIAXONE 1,000 MG in NA CHLORIDE 0.9% 50 ML IVPB SCH (09:00)
[2023-07-30 13:51] VITALS: BP 126/72; TEMP 98.5
--- NOTE | 2023-07-31 06:40 | ECHO ---
HEIGHT: 5 ft 1 in WEIGHT: 130 lb 0 oz DATE OF STUDY: 07/28/[address]: Pebbles Palmer NP 2-DIMENSIONAL: YES M.MODE: YES DOPPLER: YES COLOR FLOW: YES TDS: PORTABLE: YES DEFINITY: BUBBLE STUDY: DIAGNOSIS: CONGESTIVE HEART FAILURE CARDIAC HISTORY: CATHERIZATION: NO SURGERY: NO PROSTHETIC VALVE: NO PACEMAKER: NO MEASUREMENTS (cm) DIASTOLIC (NORMALS) SYSTOLIC (NORMALS) IVSd 1.0 (0.6-1.2) LA Diam 3.0 (1.9-4.0) LVEF 76% LVIDd 4.8 (3.5-5.7) LVIDs 2.6 (2.0-3.5) %FS 45% LVPWd 1.0 (0.6-1.2) Ao Diam 2.9 (2.0-3.7) 2 DIMENSIONAL ASSESSMENT: RIGHT ATRIUM: NORMAL LEFT ATRIUM: NORMAL RIGHT VENTRICLE: NORMAL LEFT VENTRICLE: NORMAL TRICUSPID VALVE: NORMAL MITRAL VALVE: NORMAL PULMONIC VALVE: NORMAL AORTIC VALVE: NORMAL PERICARDIAL EFFUSION: NONE AORTIC ROOT: NORMAL LEFT VENTRICULAR WALL MOTION: NORMAL DOPPLER/COLOR FLOW: NORMAL COMMENTS: 1. NORMAL LEFT VENTRICULAR EJECTION FRACTION 60-65% 2. NORMAL WALL MOTION 3. NORMAL DIASTOLIC FUNCTION 4. TRACE TRICUSPID REGURGITATION TECHNOLOGIST: JUSTIN PHIPPS
== END 2023-07-30 16:16 | disposition home or self-care (01) | DRG 441 ==
LOC: ER 13:46 → ERHOLD 17:21 → 4TH 07-28 15:10
PROVIDERS: ADMIT Hospitalist; ATTEND Emergency Medicine
DX: K76.82 Hepatic encephalopathy (principal); J18.9 Pneumonia, unspecified organism; K70.31 Alcoholic cirrhosis of liver with ascites; F10.20 Alcohol dependence, uncomplicated; D64.9 Anemia, unspecified; E83.42 Hypomagnesemia; I50.9 Heart failure, unspecified; K21.9 Gastro-esophageal reflux disease without esophagitis; I95.1 Orthostatic hypotension
CPT/HCPCS: 36415; 70450; 70496; 70498; 70551; 71045; 71250; 72125; 74176; 80048; 80053; 80061; 80076; 81001; 82077; 82140; 82565; 83690; 83735; 83880; 84100; 84439; 84484; 85025; 85610; 86140; 86850; 86900; 86901; 87804; 87811; 93005; 93306; 96365; 96366; 96367; 99285; J0696; J1650; J3411; J3475; J7030; J7050; Q9967

== ENCOUNTER → 2023-09-15 | Emergency (ER) | payer SELFPAY ==
[~2023-09-15] MED LIST: FOLIC ACID 5 MG/ML VIAL ONE; LEVETIRACETAM 500 MG/5 ML VIAL IV ONE; LORazepam 2 MG/ML VIAL ONE; MULTIVITAMINS 10 ML VIAL (INJ) IV ONE; Magnesium Sulfate 2gm IVPB 2 G/50 ML BAG IV ONE; NA CHLORIDE 0.9% 1,000 ML ONE; NA CHLORIDE 0.9% 100 ML ONE; PANTOPRAZOLE 40 MG INJ ONE; THIAMINE 200 MG/2 ML INJ ONE; WATER FOR INJ,STERILE 10 ML ONE; ZIPRASIDONE MESYLA 20 MG/VIAL IM ONE
[2023-09-15 20:57] LABS: Hematocrit 25.7 % (39.6-49.0); Lymphocytes % 18.5 % (15.3-44.8); MCV 95.2 fL (80-100); MPV 8.2 fL (7.6-11.3); Platelets 175 thou/uL (152-406)
--- NOTE | 2023-09-15 21:16 | RAD REPORT ---
EXAM DESCRIPTION: RADChest Single View09/15/2023 9:06 pm CLINICAL HISTORY: COUGH COMPARISON: Chest Single View dated 07/27/2023; Chest Single View dated 01/30/2023; Chest Single View d ated 01/15/2023; Chest Single View dated 12/14/2022 TECHNIQUE: Portable AP view of the chest. FINDINGS: The lungs are clear. No pneumothorax or effusion. The cardiomediastinal contours are unre markable. IMPRESSION: No acute cardiopulmonary process.
[2023-09-15 21:47] LABS: Protime INR 1.56
[2023-09-15 21:57] LABS: Albumin 2.4 g/dL (3.4-5.0); Bilirubin Direct 0.8 mg/dL (0-0.2); Bilirubin Indirect, Calculated 0.4 mg/dL (0.2-0.8); Bilirubin Total 1.2 mg/dL (0.2-1.0); Magnesium 1.6 mg/dL (1.6-2.4); Potassium 4.1 mEq/L (3.5-5.1); Protein, Total 6.7 g/dL (6.4-8.2); Troponin High Sensitivity 7.7 pg/mL (<58.9)
--- NOTE | 2023-09-15 22:01 | RAD REPORT ---
EXAM DESCRIPTION: CT - Head Brain Wo Cont - 09/15/2023 9:12 pm CLINICAL HISTORY: Dizziness;Seizure COMPARISON: Head Brain Wo Cont dated 07/27/2023; Head angio dated 07/27/2023 TECHNIQUE: Noncontrast head CT images were obtained without IV contrast. Multiplanar reformats were generated and reviewed. All CT scans are performed using dose optimization technique as appropriate and may include automated exposure control or mA/KV adjustment according to patient size. FINDINGS: No intracranial hemorrhage, mass, or edema. Midline structures are unremarkable. Normal ventricular caliber for age. Montiel-white matter differentiation is preserved, without evidence of acute infarct. No abnormal extra- axial fluid collections. Mastoid air cells and visualized portions of the paranasal sinuses are clear. No acute bony findings. Small left parietal scalp hematoma and swelling. IMPRESSION: No evidence of an acute intracranial process. Small left parietal scalp hematoma swelling.
--- NOTE | 2023-09-15 23:59 | ER ---
Nurse's Notes [facility] Name: Fan Lei Jr Age: 57 yrs Sex: Male : 1965 Arrival Date: 09/15/2023 Time: 20:20 Bed 15 Private MD: Diagnosis: Epileptic seizures related to external causes, not intractable, without status epilepticus;Anemia, unspecified;Altered mental status, unspecified;Weakness-RIGHT SIDED, UNKNOW ONSET;Alcoholic cirrhosis of liver;Encephalopathy, unspecified-HEPATIC Presentation: 09/15 20:32 Chief complaint: EMS states: 57 year old male family member report he has been having ha1 seizures since 4 pm today. on our arrival we witness 5 episodes of seizures. we gave 5 mg of Versed and seizures have stopped. He appears post ictal. 20:32 Ebola Screen: No symptoms or risks identified at this time. Initial Sepsis Screen: Does ha1 the patient meet any 2 criteria? No. Patient's initial sepsis screen is negative. Does the patient have a suspected source of infection? No. Patient's initial sepsis screen is negative. Risk Assessment: Do you want to hurt yourself or someone else? Patient reports no desire to harm self or others. Onset of symptoms was September 15, 2023. 20:32 Method Of Arrival: EMS: [email or web address] ha1 20:32 Acuity: KITA 3 ha1 Triage Assessment: 20:32 General: Appears unkempt, Behavior is calm. Pain: Unable to use pain scale. FLACC scale ha1 score is 0 out of 10. Neuro: Level of Consciousness is awake, lethargic, post ictal, Oriented to none. Cardiovascular: Heart tones S1 S2 present Capillary refill < 3 seconds Patient's skin is warm and dry. Rhythm is sinus tachycardia. Respiratory: Airway is patent Respiratory effort is even, unlabored, Respiratory pattern is regular, symmetrical. GI: Abdomen is round Bowel sounds present X 4 quads. : No signs and/or symptoms were reported regarding the genitourinary system. Derm: Skin is fragile, Skin is normal. Musculoskeletal: Historical: - Allergies: 20:32 No Known Allergies; ha1 - PMHx: 20:32 Alcohol dependence; cirrhosis of liver; Congestive heart failure; Gastroesophageal ha1 reflux disease; GI Bleed; Seizure; - Immunization history:: Adult Immunizations unknown. - Social history:: Smoking status: unknown. Screenin:44 [facility] ED Fall Risk Assessment (Adult) History of falling in the last 3 months, ha1 including since admission Yes- physiologic fall (2 pts) Confusion or Disorientation Yes (5 pts) Intoxicated or Sedated No (0 pts) Impaired Gait Yes (1 pt) Mobility Assist Device Used Yes (1 pt) Altered Elimination Yes (1 pt) Score/Fall Risk Level 3 or more points = High Risk Oriented to surroundings, Maintained a safe environment, Educated pt \T\ family on fall prevention, incl call for assistance when getting out of bed, Hourly rounding (assess needs \T\ fall precautionary measures) done. Nutritional screening: No deficits noted. 21:44 Abuse screen:. Tuberculosis screening: No symptoms or risk factors identified. ha1 Assessment: 20:32 Reassessment: SEE TRIAGE ASSESSMENT. ha1 21:12 Reassessment: going to CT. ha1 21:25 Reassessment: back from CT. ha1 21:25 Neuro: Level of Consciousness is confused, lethargic. Respiratory: Airway is patent ha1 Respiratory effort is even, unlabored, Respiratory pattern is regular, symmetrical. 21:51 Reassessment: SISTER CELL # [phone]. ha1 22:50 Reassessment: Patient and/or family updated on plan of care and expected duration. Pain ha1 level reassessed. 22:50 General: Appears comfortable, Behavior is calm. Respiratory: Airway is patent ha1 Respiratory effort is even, unlabored, Respiratory pattern is regular, symmetrical. 23:45 General: Appears comfortable, Behavior is anxious. Respiratory: Airway is patent ha1 Respiratory effort is even, unlabored, Respiratory pattern is regular, symmetrical. GI: 09/16 01:45 General: Behavior is agitated, anxious, restless, uncooperative. Neuro: Guzman 1 Agitation-Sedation Scale (RASS): +4 Combative 01:45 Reassessment: notified Dr. Flanagan. ha1 02:14 Reassessment: report given to KYRA Fuentes. ha1 02:50 Reassessment: this RN patient attempting to bite nursing staff, refused PO medications. ha1 Neuro: Guzman Agitation-Sedation Scale (RASS): +1 Restless. 03:50 Reassessment: eyes closed. General: Appears comfortable, Behavior is calm. Respiratory: ha1 Airway is patent Respiratory effort is even, unlabored, Respiratory pattern is regular, symmetrical. Vital Signs: 09/15 20:32 BP 138 / 81; Pulse 91; Resp 17 S; Temp 98.4; Pulse Ox 98% on R/A; Weight 79.38 kg; ha1 Height 5 ft. 6 in. ; 21:46 BP 147 / 82; Pulse 113; Resp 17 S; Pulse Ox 100% on 2 lpm NC; ha1 22:50 BP 139 / 86; Pulse 110; Resp 18 S; Pulse Ox 100% on 2 lpm NC; ha1 23:49 BP 135 / 70; Pulse 110; Resp 19 S; Pulse Ox 100% on 2 lpm NC; ha1 09/16 00:13 BP 144 / 78; Pulse 102; Resp 17 S; Pulse Ox 100% on R/A; ha1 01:00 BP 133 / 100; Pulse 111; Resp 18 S; Pulse Ox 100% on 2 lpm NC; ha1 02:00 BP 125 / 82; Pulse 109; Resp 17 S; Pulse Ox 100% on R/A; ha1 02:45 BP 132 / 80; Pulse 112; Resp 17 S; Pulse Ox 100% on 2 lpm NC; ha1 03:40 BP 115 / 80; Pulse 106; Resp 17 S; Temp 98(T); Pulse Ox 100% on 2 lpm NC; ha1 09/15 20:32 Body Mass Index 28.25 (79.38 kg, 167.64 cm) ha1 [place] Coma Score: 09/15 20:32 Eye Response: spontaneous(4). Motor Response: none(1). Verbal Response: confused(4). ha1 Total: 9. ED Course: 20:31 Patient arrived in ED. rg4 20:32 Bubba Flanagan MD is Attending Physician. zaria 20:32 Maintain EMS IV. Dressing intact. Good blood return noted. Site clean \T\ dry. Gauge \T\ leiva 1 site: 20 GAUGE LEFT FOREARM . 20:32 Patient has correct armband on for positive identification. Bed in low position. Call ha1 light in reach. Side rails up X2. Seizure precautions initiated. 20:37 Erendira Martin RN is Primary Nurse. ha1 21:08 XRAY Chest (1 view) In Process Unspecified. EDMS 21:14 CT Head Brain wo Cont In Process Unspecified. EDMS 21:15 Basic Metabolic Panel Sent. ha1 21:15 LFT's Sent. ha1 21:15 Magnesium Sent. ha1 21:15 NT PRO-BNP Sent. ha1 21:15 PT-INR Sent. ha1 21:15 Troponin HS Sent. ha1 21:35 Triage completed. ha1 09/16 00:12 AMMONIA Sent. ha1 01:13 CT Head Angio In Process Unspecified. EDMS 01:14 CT Neck Angio In Process Unspecified. EDMS 04:00 No provider procedures requiring assistance completed. ha1 04:00 Patient transferred, IV remains in place. ha1 Administered Medications: 09/15 20:42 Drug: Ativan IVP 1 mg IVP once Route: IVP; Site: left forearm; ha1 21:00 Follow up: Response: No adverse reaction ha1 20:48 Drug: Keppra IV 1000 mg IV at per protocol once Route: IV; Rate: per protocol; Site: [facility] left [facility]; 21:15 Follow up: Response: No adverse reaction; IV Status: Completed infusion; IV Intake: ha1 100ml 21:07 Drug: Thiamine IV 100 mg IV at per protocol once Route: IV; Rate: per protocol; Site: [facility] left forearm; 22:00 Follow up: Response: No adverse reaction ha1 21:08 Drug: Banana Bag - (Multivitamin IV 1 amp, NS 0.9% IV 1000 ml, Thiamine IV 100 mg, ha1 foLIC Acid IVPB 1 mg) IV at 500 ml/hr once Route: IV; Rate: 500 ml/hr; Site: left forearm; 09/16 00:00 Follow up: Response: No adverse reaction; IV Status: Completed infusion; IV Intake: ha1 1000ml 09/15 21:10 Drug: Magnesium Sulfate IVPB 2 grams IVPB once over 2 hrs Route: IVPB; Infused Over: 2 ha1 hrs; Site: right forearm; 22:50 Follow up: Response: No adverse reaction; IV Status: Completed infusion; IV Intake: 22oxhs0 09/16 00:00 Drug: Pantoprazole IVP 40 mg IVP once Route: IVP; Site: left forearm; ha1 00:30 Follow up: Response: No adverse reaction ha1 00:03 Drug: foLIC Acid IVPB 1 mg IVPB once Route: IVPB; Site: left forearm; ha1 04:09 Follow up: Response: No adverse reaction ha1 01:30 Drug: Keppra IV 1000 mg IV at per protocol once Route: IV; Rate: per protocol; Site: ha1 left forearm; 02:20 Follow up: Response: No adverse reaction; IV Status: Completed infusion; IV Intake: ha1 100ml 01:45 Drug: Ativan IVP 1 mg IVP once Route: IVP; Site: left forearm; ha1 02:45 Follow up: Response: No adverse reaction; RASS: Restless (+1) ha1 01:57 Drug: Ativan IVP 1 mg IVP once Route: IVP; Site: left forearm; ha1 02:45 Follow up: Response: No adverse reaction; RASS: Restless (+1) ha1 02:50 Drug: Geodon IM 10 mg IM once Route: IM; Site: right deltoid; ha1 03:50 Follow up: Response: No adverse reaction; Anxiety decreased; RASS: Drowsy (-1) ha1 02:55 Not Given (pt. attempting to bite nursing stuff, pt. refused medication): ha1 grams 45 ml PO once Medication: 04:00 VIS not applicable for this client. ha1 Intake: 09/15 21:15 IV: 100ml; Total: 100ml. ha1 22:50 IV: 50ml; Total: 150ml. ha1 09/16 00:00 IV: 1000ml; Total: 1150ml. ha1 02:20 IV: 100ml; Total: 1250ml. ha1 Outcome: 09/15 23:59 ER care complete, transfer ordered by MD. enciso 09/16 04:00 Transferred by ground EMS to [facility], Transfer form completed. X-rays sent ha1 w/ patient. Condition: stable Instructed on the need for transfer, Demonstrated understanding of instructions, SPOKE TO PATIENT'S SISTER AND EXPLAINED THE NEED FOR TRANSFER 04:00 Patient left the ED. ha1 Signatures: Dispatcher [employer] Bubba Cotton MD MD cha Garcia, Rubi rg4 Erendira Martin RN RN ha1 Corrections: (The following items were deleted from the chart) 04:19 04:18 Patient left the ED. ha1 ha1
--- NOTE | 2023-09-16 | EDPHYS ---
Physician Documentation [facility] Name: Fan Lei Jr Age: 57 yrs Sex: Male : 1965 Arrival Date: 09/15/2023 Time: 20:20 Bed 15 Private MD: ED Physician Bubba Flanagan HPI: 09/15 23:51 This 57 yrs old Male presents to ER via EMS with complaints of Seizure. zaria Historical: - Allergies: 20:32 No Known Allergies; ha1 - PMHx: 20:32 Alcohol dependence; cirrhosis of liver; Congestive heart failure; Gastroesophageal ha1 reflux disease; GI Bleed; Seizure; - Immunization history:: Adult Immunizations unknown. - Social history:: Smoking status: unknown. ROS: 23:51 Constitutional: Negative for fever, chills, and weight loss, Eyes: Negative for injury, zaria pain, redness, and discharge, ENT: Negative for injury, pain, and discharge, Exam: 23:54 Constitutional: This is a well developed, well nourished patient who is awake, alert, zaria and in no acute distress. Head/Face: Normocephalic, atraumatic. Eyes: Pupils equal round and reactive to light, extra-ocular motions intact. Lids and lashes normal. Conjunctiva and sclera are non-icteric and not injected. Cornea within normal limits. Periorbital areas with no swelling, redness, or edema. ENT: Nares patent. No nasal discharge, no septal abnormalities noted. Tympanic membranes are normal and external auditory canals are clear. Oropharynx with no redness, swelling, or masses, exudates, or evidence of obstruction, uvula midline. Mucous membranes moist. Neck: Trachea midline, no thyromegaly or masses palpated, and no cervical lymphadenopathy. Supple, full range of motion without nuchal rigidity, or vertebral point tenderness. No Meningismus. Chest/axilla: Normal chest wall appearance and motion. Nontender with no deformity. No lesions are appreciated. Respiratory: Lungs have equal breath sounds bilaterally, clear to auscultation and percussion. No rales, rhonchi or wheezes noted. No increased work of breathing, no retractions or nasal flaring. Abdomen/GI: Soft, non-tender, with normal bowel sounds. No distension or tympany. No guarding or rebound. No evidence of tenderness throughout. Back: No spinal tenderness. No costovertebral tenderness. Full range of motion. Male : Normal genitalia with no discharge or lesions. MS/ Extremity: Pulses equal, no cyanosis. Neurovascular intact. Full, normal range of motion. 23:54 Cardiovascular: Rate: tachycardic, actual rate is 110 bpm, Rhythm: regular, Pulses: Pulses are 4+ in bilateral radial, brachial, femoral, popliteal, posterior tibial and and dorsalis pedis arteries.. Heart sounds: normal, Edema: is not appreciated, JVD: is not appreciated, 23:54 ECG was reviewed by the Attending Physician. Vital Signs: 20:32 BP 138 / 81; Pulse 91; Resp 17 S; Temp 98.4; Pulse Ox 98% on R/A; Weight 79.38 kg; ha1 Height 5 ft. 6 in. ; 21:46 BP 147 / 82; Pulse 113; Resp 17 S; Pulse Ox 100% on 2 lpm NC; ha1 22:50 BP 139 / 86; Pulse 110; Resp 18 S; Pulse Ox 100% on 2 lpm NC; ha1 23:49 BP 135 / 70; Pulse 110; Resp 19 S; Pulse Ox 100% on 2 lpm NC; ha1 09/16 00:13 BP 144 / 78; Pulse 102; Resp 17 S; Pulse Ox 100% on R/A; ha1 01:00 BP 133 / 100; Pulse 111; Resp 18 S; Pulse Ox 100% on 2 lpm NC; ha1 02:00 BP 125 / 82; Pulse 109; Resp 17 S; Pulse Ox 100% on R/A; ha1 02:45 BP 132 / 80; Pulse 112; Resp 17 S; Pulse Ox 100% on 2 lpm NC; ha1 03:40 BP 115 / 80; Pulse 106; Resp 17 S; Temp 98(T); Pulse Ox 100% on 2 lpm NC; 1 09/15 20:32 Body Mass Index 28.25 (79.38 kg, 167.64 cm) ha1 [place] Coma Score: 09/15 20:32 Eye Response: spontaneous(4). Motor Response: none(1). Verbal Response: confused(4). ha1 Total: 9. MDM: 20:32 Patient medically screened. zaria 23:55 Differential diagnosis: CVA, electrolyte abnormality, alcohol intoxication, zaria hypoglycemia, intracranial bleed, meningitis, overdose, seizure, sepsis, TIA, UTI, cerebral vascular accident, drug overdose, cardiac arrhythmia, seizure, TIA. Data reviewed: vital signs, nurses notes, EMS record, lab test result(s), EKG, radiologic studies, CT scan, plain films. Consideration of Admission/Observation Escalation of care including admission/observation considered. Management of patient was discussed with the following: [employer]: [facility]. I considered the following discharge prescriptions or medication management in the emergency department Medications were administered in the Emergency Department. See MAR. Independent interpretation of the following test(s) in the Emergency Department EKG: See my EKG interpretation above. Test considered but Not performed: MRI: NO MRI BRAIN. Historians other than the Patient: EMS: EMS WELL INFORMED. Care significantly affected by the following chronic conditions: Congestive Heart Failure, Obesity, Liver Disease, ALCOHOL ABUSE, CIRRHOSIS,. 09/15 20:35 Order name: Basic Metabolic Panel; Complete Time: 23:34 09/15 20:35 Order name: CBC with Diff; Complete Time: 23:34 09/15 20:35 Order name: LFT's; Complete Time: 23:34 09/15 20:35 Order name: Magnesium; Complete Time: 23:34 09/15 20:35 Order name: NT PRO-BNP; Complete Time: 23:34 09/15 20:35 Order name: PT-INR; Complete Time: 23:34 09/15 20:35 Order name: Troponin HS; Complete Time: 23:34 09/15 20:35 Order name: Lipase; Complete Time: 23:34 09/15 23:46 Order name: AMMONIA; Complete Time: 01:41 09/15 23:50 Order name: ETOH Level; Complete Time: 01:41 09/15 20:35 Order name: XRAY Chest (1 view); Complete Time: 23:34 09/15 20:35 Order name: CT Head Brain wo Cont; Complete Time: 23:34 09/15 23:53 Order name: CT Head Angio 09/15 23:53 Order name: CT Neck Angio 09/15 20:35 Order name: EKG; Complete Time: 20:36 09/15 20:35 Order name: Cardiac monitoring; Complete Time: 20:38 09/15 20:35 Order name: EKG - Nurse/Tech; Complete Time: 21:14 [facility] 09/15 20:35 Order name: IV Saline Lock; Complete Time: 20:38 [facility] 09/15 20:35 Order name: Labs collected and sent; Complete Time: 20:50 [facility] 09/15 20:35 Order name: O2 Per Protocol; Complete Time: 20:38 [facility] 09/15 20:35 Order name: O2 Sat Monitoring; Complete Time: 20:50 [facility] 09/15 20:35 Order name: Seizure Precautions; Complete Time: 20:38 [facility] 09/15 21:05 Order name: Misc. Order: RECOLLECT GREEN AND BLUE TOP; Complete Time: 21:46 rv1 EC:54 Rate is 85 beats/min. Rhythm is regular. QRS Thoreau is Normal. NC interval is normal. QRS zaria interval is normal. QT interval is normal. No Q waves. T waves are Normal. No ST changes noted. Clinical impression: Normal ECG and No evidence of ischemia. Interpreted by me. Reviewed by me. Administered Medications: 20:42 Drug: Ativan IVP 1 mg IVP once Route: IVP; Site: left [facility]; 1 21:00 Follow up: Response: No adverse reaction ha1 20:48 Drug: Keppra IV 1000 mg IV at per protocol once Route: IV; Rate: per protocol; Site: [address]; 21:15 Follow up: Response: No adverse reaction; IV Status: Completed infusion; IV Intake: ha1 100ml 21:07 Drug: Thiamine IV 100 mg IV at per protocol once Route: IV; Rate: per protocol; Site: [facility] left [facility]; 22:00 Follow up: Response: No adverse reaction ha1 21:08 Drug: Banana Bag - (Multivitamin IV 1 amp, NS 0.9% IV 1000 ml, Thiamine IV 100 mg, ha1 foLIC Acid IVPB 1 mg) IV at 500 ml/hr once Route: IV; Rate: 500 ml/hr; Site: left forearm; 09/16 00:00 Follow up: Response: No adverse reaction; IV Status: Completed infusion; IV Intake: ha1 1000ml 09/15 21:10 Drug: Magnesium Sulfate IVPB 2 grams IVPB once over 2 hrs Route: IVPB; Infused Over: 2 ha1 hrs; Site: right [facility]; 22:50 Follow up: Response: No adverse reaction; IV Status: Completed infusion; IV Intake: [id number] 09/16 00:00 Drug: Pantoprazole IVP 40 mg IVP once Route: IVP; Site: left forearm; ha1 00:30 Follow up: Response: No adverse reaction ha1 00:03 Drug: foLIC Acid IVPB 1 mg IVPB once Route: IVPB; Site: left forearm; ha1 04:09 Follow up: Response: No adverse reaction ha1 01:30 Drug: Keppra IV 1000 mg IV at per protocol once Route: IV; Rate: per protocol; Site: ha left forearm; 02:20 Follow up: Response: No adverse reaction; IV Status: Completed infusion; IV Intake: ha1 100ml 01:45 Drug: Ativan IVP 1 mg IVP once Route: IVP; Site: left forearm; ha1 02:45 Follow up: Response: No adverse reaction; RASS: Restless (+1) ha1 01:57 Drug: Ativan IVP 1 mg IVP once Route: IVP; Site: left forearm; ha1 02:45 Follow up: Response: No adverse reaction; RASS: Restless (+1) ha1 02:50 Drug: Geodon IM 10 mg IM once Route: IM; Site: right deltoid; ha1 03:50 Follow up: Response: No adverse reaction; Anxiety decreased; RASS: Drowsy (-1) ha1 02:55 Not Given (pt. attempting to bite nursing stuff, pt. refused medication): [id number] ha1 grams 45 ml PO once Disposition Summary: 09/15/23 23:59 Transfer Ordered Notes: Transfer Location: [facility] zaria Reason: Higher level of care zaria Condition: Serious zaria Problem: new zaria Symptoms: have improved zaria Accepting Physician: [facility](09/16/23 04:18) ha1 Diagnosis - Epileptic seizures related to external causes, not intractable, without status zaria epilepticus - Anemia, unspecified zaria - Altered mental status, unspecified zaria - Weakness - RIGHT SIDED, UNKNOW ONSET zaria - Alcoholic cirrhosis of liver zaria - Encephalopathy, unspecified - HEPATIC zaria Forms: - Medication Reconciliation Form zaria - SBAR form zaria Signatures: Dispatcher [employer] Bubba Cotton MD MD cha Ayala, Heidy RN RN ha1 Radha Liriano rv1 Corrections: (The following items were deleted from the chart) 01:44 09/15 23:59 [facility] 09/16 04:18 01:44 [facility]
[2023-09-16 04:44] VITALS: BP 115/80; TEMP 98; O2SAT 100
--- NOTE | 2023-09-16 17:45 | RAD REPORT ---
EXAM DESCRIPTION: CT - Head angio - 09/16/2023 4:39 am CLINICAL HISTORY: PAIN, AMS COMPARISON: None. TECHNIQUE: CT HEAD ANGIOGRAPHY WITH IV CONTRAST, CT NECK ANGIOGRAPHY WITH IV CONTRAST on 09/15/2023 1 1:53 PM REGULATORY COMPLIANCE COORDINATOR This exam was performed according to our departmental dose-optimization program, which includes autom ated exposure control, adjustment of the mA and/or kV according to patient size and/or use of iterati ve reconstruction technique. MIP reconstructions were generated. Stenoses are calculated by NASCET criteria. FINDINGS: The visualized aortic arch and origins of the great vessels unremarkable. The common carotid arteries are patent and symmetric bilaterally. No hemodynamically significant stenosis is observed at the common carotid bifurcations or origins of the internal carotid arteries bilaterally. Vertebral arteries are unremarkable without evidence of pseudoaneurysm, hemodynamically significant s tenosis, or dissection. Intracranially the cavernous segments of the internal carotid arteries are patent and symmetric bilat erally. Vertebral basilar system within normal limits for age. No aneurysm identified within the [place] of [place]. Anterior, middle, and posterior cerebral circulat ions are patent and symmetric bilaterally. Dural sinuses are well opacified and without filling defect. IMPRESSION: Unremarkable CT angiogram of the neck for age without dissection or hemodynamically sign ificant stenosis. Unremarkable CTA of the brain without evidence of hemodynamically significant stenosis, aneurysm or A VM. CAROTID STENOSIS REFERENCE USING NASCET CRITERIA: % ICA stenosis = (1 - narrowest ICA diameter/diameter of distal cervical ICA) x 100. Mild - <50% stenosis. Moderate - 50-69% stenosis. Severe - 70-94% stenosis. Near occlusion - 95-99% stenosis. Occluded - 100% stenosis. Electronically signed by: Rik Evans MD 09/16/2023 02:23 AM REGULATORY COMPLIANCE COORDINATOR Due to temporary technical issues with the PACS/Fluency reporting system, reports are being signed by the in house radiologists without review as a courtesy to insure prompt reporting. The interpreting radiologist is fully responsible for the content of the report.
--- NOTE | 2023-09-16 17:58 | RAD REPORT ---
EXAM DESCRIPTION: CT - Neck Angio - 09/16/2023 4:39 am CLINICAL HISTORY: PAIN, AMS COMPARISON: None. TECHNIQUE: CT HEAD ANGIOGRAPHY WITH IV CONTRAST, CT NECK ANGIOGRAPHY WITH IV CONTRAST on 09/15/2023 1 1:53 PM COOK APPRENTICE This exam was performed according to our departmental dose-optimization program, which includes autom ated exposure control, adjustment of the mA and/or kV according to patient size and/or use of iterati ve reconstruction technique. MIP reconstructions were generated. Stenoses are calculated by NASCET criteria. FINDINGS: The visualized aortic arch and origins of the great vessels unremarkable. The common carotid arteries are patent and symmetric bilaterally. No hemodynamically significant stenosis is observed at the common carotid bifurcations or origins of the internal carotid arteries bilaterally. Vertebral arteries are unremarkable without evidence of pseudoaneurysm, hemodynamically significant s tenosis, or dissection. Intracranially the cavernous segments of the internal carotid arteries are patent and symmetric bilat erally. Vertebral basilar system within normal limits for age. No aneurysm identified within the [place]. Anterior, middle, and posterior cerebral circulat ions are patent and symmetric bilaterally. Dural sinuses are well opacified and without filling defect. IMPRESSION: Unremarkable CT angiogram of the neck for age without dissection or hemodynamically sign ificant stenosis. Unremarkable CTA of the brain without evidence of hemodynamically significant stenosis, aneurysm or A VM. CAROTID STENOSIS REFERENCE USING NASCET CRITERIA: % ICA stenosis = (1 - narrowest ICA diameter/diameter of distal cervical ICA) x 100. Mild - <50% stenosis. Moderate - 50-69% stenosis. Severe - 70-94% stenosis. Near occlusion - 95-99% stenosis. Occluded - 100% stenosis. Electronically signed by: Rik Evans MD 09/16/2023 02:23 AM COOK APPRENTICE Due to temporary technical issues with the PACS/Fluency reporting system, reports are being signed by the in house radiologists without review as a courtesy to insure prompt reporting. The interpreting radiologist is fully responsible for the content of the report.
--- NOTE | 2023-09-18 14:36 | EKG ---
Test Date: 2023-09-15 Test Time: 21:00:17 Flash Welder: ZO MEASUREMENT RESULTS: Intervals: Rate: 85 [place]: 152 QRSD: 78 QT: 386 QTc: 459 [place]: P: 27 [place]: 152 QRS: -13 T: 33 INTERPRETIVE STATEMENTS: Normal sinus rhythm Normal ECG Compared to ECG 07/27/2023 15:45:21 Prolonged QT interval no longer present Electronically Signed On 09-18-23 14:29:09 GREASE REMOVER by Donnell Giraldo
== END ==
LOC: ER 20:20
DX: G40.509 Epileptic seizures related to external causes, not intractable, without status epilepticus (principal); D64.9 Anemia, unspecified; F10.20 Alcohol dependence, uncomplicated; K70.30 Alcoholic cirrhosis of liver without ascites; R53.1 Weakness; K76.82 Hepatic encephalopathy
CPT/HCPCS: 36415; 70450; 70496; 70498; 71045; 80048; 80076; 82077; 83690; 83735; 83880; 84484; 85025; 85610; 93005; C9113; J1953; J3411; J3475; J7030; Q9967

== ENCOUNTER 2023-12-25 14:34 | Inpatient (IN) | payer OTHER, SELFPAY ==
--- OUTSIDE RECORDS SUMMARY | 2023-12-25 14:51 | XMS REPORT | Continuity of Care Document ---
Author Name Unknown Address [address] [facility] [place] [address] [facility] Address [address] [facility] [place] [address] Care Team Providers Care Analysis Evaluator Name Role Phone RORY JACKSON Primary Care Physician LC Stout Attending Clinician KAITLYN Stein I Attending Clinician RORY Ojeda Attending Clinician UnavailKaitlyn Cat MD Attending Clinician [phone] Renita Reynaga MD Attending Clinici an Vin [place], [place] Attending Clinician [phone] Riley Parker MD Attending Clinician [phone] KEITH ROPER Attending Clinician Unavailable MARCOS DIEGO Attending Clinician Unavaila ELVIN Flores Attending Clinician Unavailable RENITA REYNAGA Attendin g Clinician Unavailable Provider, Not In System Attending Clinician UnaCrystal Fry Attending Clinician KAY Saravia Attending Clinician Unavailrashida Alberto MD, Kay Gillespie Attending Clinician [phone] Kennedy ORTEGA, Rory Hammond Attending Clinician [phone] Dontrell Waters MD Attending Clinician [phone] Dontrell Amador CRNA Attending Clinician [phone] PRESTON ENRIQUEZ Attending Clinician Unavailable Maris Mckeon Attending Clinician Unavailab BILLY Umanzor Attending Clinician UnavailLATOYA Zapien Attending Clinician Unavailable DAVE ASHLEY Attending Clinician Unavailable ROCKY LAWSON Attending Clinician Unavailable BETSY KIM Attending Clinician Unavailable , DR LUNA Attending Clinician Unavailable , DR LUNA Attending Clinician Unavailable LIAM, DR KELBY GRANT Attending Clinician Courtney vailable LIAM, DR KELBY GRANT Attending Clinician Courtney vailable NIDHI, DR OCONNOR Attending Clinician Unavailab le Doctor Unassigned, Griffin Attending Clinician U RUBEN Aleman Attending Clinician Unavaila bryson Moody MD, Pardeep Spring Attending Clinician Ruben Conn MD Attending Clinician HENRIK_LIZZ_HARLAN Attending Clinician Unavailable Tamara Partida LVN Attending Clinician [phone] Maya Nguyen DO Attending Clinician [phone] RIVKA CREWS Attending Clinician UnaRivka Chamberlain MD Attending Clinician [phone] Sujit Vazquez MD Attending Clinician [phone] DR KARRI THAYER Attending Clinician Unavaila bryson Bishop Attending Clinician Unavailable XENIA SANZ Attending Clinician Unavaila Marcel Marquez MD Attending Clinician [phone] TINO PORRAS Attending Clinician Unavailable DIOGO WILSON MD(DO NOT USE) Attending Clinic fantasma Unavailable MELONIE HE Attending Clinician Unavailab RADHA Christy Attending Clinician Unavailable GOYO KAISER Attending Clinician Unavailable MEGA GALICIA Attending Clinician Unavail able JARAD TREJO Attending Clinician Unavailable DR ADY CONN Attending Clinician UnavailORLANDO Pérez Attending Clinician UnavailJESSICA Godwin Attending Clinician Unavailable STEFANI BURKS Attending Clinician Unavailable CRISTIN CURIEL Attending Clinician Unavailable FREEMAN LOUISE Attending Clinician UnavailJEREMY Barron Attending Clinician Unavailable IRISH TINSLEY Attending Clinician Unavailab KAITLYN Pratt I Admitting Clinician UnaKYA Armas Admitting Clinician UnavailDR JEREMY Ibarra Admitting Clinician Unavailable Physician, No Primary or Family Admitting Clinic fantasma Unavailable DAVE ASHLEY Admitting Clinician Unavailable DR KELBY WHEELER Admitting Clinician Courtney DR ANASTASIA Greene Admitting Clinician Unavailab RUBEN Schmidt Admitting Clinician Unavaila Ruben Mercedes MD Admitting Clinician [phone] [facility] Unavailable SUJIT VAZQUEZ Admitting Clinician Unavailab Sujit Montero MD Admitting Clinician DR KARRI THAYER Admitting Clinician Unavaila bryson Bishop Admitting Clinician Unavailable RADHA GATICA Admitting Clinician Unavailable DR ADY CONN Admitting Clinician UnavailCRISTIN Santos Admitting Clinician Unavailable Payers Payer Name Policy Type Policy Number Effective Date Expirati on Date Source 1000 [id number] 2023 00:00:00 Problems Condition Name Condition Details Condition Category Status Onset Date Resolution Date Last Treatment Date Treating Clinician Comments Source B12 deficiency B12 deficiency Disease [facility] 12-10 00:00: 00 [facility] Alcoholic cirrhosis Alcoholic cirrhosis Disease [facility] 12-09 00:00: 00 [facility] Anemia Anemia Disease [facility] 12-09 00:00: 00 [facility] Acute encephalop athy Acute encephalop athy Disease Active 12-09 00:00: 00 [facility] Acute hypoxic respirator y failure Acute hypoxic respirator y failure Disease Active 12-09 00:00: 00 [facility] Hypokalemi a Hypokalemi a Disease Active 12-09 00:00: 00 [facility] Cerebral edema Cerebral edema Disease Active 12-09 00:00: 00 [facility] Shock Shock Disease Active 12-09 00:00: 00 [facility] Status epilepticu s Status epilepticu s Disease Active 12-08 00:00: 00 [facility] Gastrointe stinal hemorrhage , unspecifie d gastrointe stinal hemorrhage type Gastrointe stinal hemorrhage , unspecifie d gastrointe stinal hemorrhage type Disease Active 10-08 00:00: 00 [facility] SOB (shortness of breath) SOB (shortness of breath) Disease Active 08-21 00:00: 00 [facility] Symptomati c anemia Symptomati c anemia Disease Active 08-21 00:00: 00 Overview: Formattin g of this note might be different from the original. Added automatic ally from request for surgery [id number] [facility] Alcohol withdrawal seizure, with delirium Alcohol withdrawal seizure, with delirium Disease Active 12-21 00:00: 00 [facility] Alcohol withdrawal syndrome with complicati on Alcohol withdrawal syndrome with complicati on Disease Recurre nce 12-21 00:00: 00 [facility] GI bleed GI bleed Disease Resolve d 2022-07 2-26 00:00: 00 2023-12-10 00:00:00 2023-12-10 08:20:41 [facility] GIB (gastroint estinal bleeding) GIB (gastroint estinal bleeding) Disease Resolve d 12-14 00:00: 00 2023-12-10 00:00:00 2023-12-10 08:20:42 [facility] Gastric varices Gastric varices Disease Resolve d 5-28 00:00: 00 2023-12-10 00:00:00 2023-12-10 08:20:41 [facility] Allergies, Adverse Reactions, Alerts Allergy Name Allergy Type Status Severity Reaction(s) Onset Date Inactive Date Treating Clinician Comments Source No Known Allergie s DA Active U 4-20 00:00: 00 [facility] No Known Drug Allergie s DA Active [facility] NO KNOWN ALLERGIE S Drug Class Active [facility] NO KNOWN ALLERGIE S Allergy Active SLE Social History Social Habit Start Date Stop Date Quantity Comments Source History of tobacco use Cigarette Smoker [facility] History SDOH Housing Places Lived [facility] Sexual orientation [facility] History SDOH Social Connections Get Together [facility] History SDOH Social Connections Yazidism [facility] History SDOH Social Connections Membership [facility] History SDOH Social Connections Meetings [facility] History of Social function 2023-08-10 00:00:00 2023-08-10 00:00:00 [facility] Tobacco use and exposure 2023-07-18 00:00:00 2023-07-18 00:00:00 Smokeless tobacco non-user [facility] History SDOH Housing Unable to Pay - In the last 12 months, was there a time when you were not able to pay the mortgage or rent on time? 2022-12-14 00:00:00 2022-12-14 00:00:00 No [facility] History SDOH Housing Homeless Last Year - In the last 12 months, was there a time when you did not have a steady place to sleep or slept in a long term (including now)? 2022-12-14 00:00:00 2022-12-14 00:00:00 No [facility] Exposure to SARS-CoV-2 (event) 2022-09-27 00:00:00 2022-10-07 15:03:00 Not sure [facility] Cigarettes smoked current (pack per day) - Reported 2022-10-07 00:00:00 2022-10-07 00:00:00 [facility] Cigarette pack-years 2022-10-07 00:00:00 2022-10-07 00:00:00 [facility] Alcohol intake 2022-10-07 00:00:00 2022-10-07 00:00:00 6 /d [facility] History SDOH Alcohol Frequency 2022-10-07 00:00:00 2022-10-07 00:00:00 5 [facility] History SDOH Alcohol Std Drinks 2022-10-07 00:00:00 2022-10-07 00:00:00 3 [facility] History SDOH Alcohol Binge 2022-10-07 00:00:00 2022-10-07 00:00:00 5 [facility] History SDOH Social Connections Phone 2022-10-07 00:00:00 2022-10-07 00:00:00 5 [facility] History SDOH Social Connections Living 2022-10-07 00:00:00 2022-10-07 00:00:00 98 [facility] History SDOH Physical Activity DPW 2022-10-07 00:00:00 2022-10-07 00:00:00 0 [facility] History SDOH Physical Activity MPS 2022-10-07 00:00:00 2022-10-07 00:00:00 0 [facility] History SDOH Financial 2022-10-07 00:00:00 2022-10-07 00:00:00 5 [facility] History SDOH Food Worry 2022-10-07 00:00:00 2022-10-07 00:00:00 1 [facility] History SDOH Food Scarcity 2022-10-07 00:00:00 2022-10-07 00:00:00 1 [facility] History SDOH Transport Med 2022-10-07 00:00:00 2022-10-07 00:00:00 2 [facility] History SDOH Transport Non-Med 2022-10-07 00:00:00 2022-10-07 00:00:00 2 [facility] Sex Assigned At 1965 00:00:00 1965 00:00:00 [facility] Smoking Status Start Date Stop Date Source Smokes tobacco daily 2023-07-18 00:00:00 [facility] Occasional tobacco smoker 2022-08-22 00:00:00 [facility] Medications Ordered Medication Name Filled Medication Name Start Date Stop Date Current Medication? Ordering Clinician Indication Dosage Frequency Signature (SIG) Comments Components Source thiamine 100 MG tablet 12-19 00:00: 00 03-19 23:59 :00 Yes 100mg QD Take 1 tablet (100 mg total) by mouth daily for 90 days. [facility] lacosamide 200 mg Tab 12-18 00:00: 00 03-18 23:59 :00 Yes 200mg Q.5D Take 1 tablet (200 mg total) by mouth 2 (two) times daily for 90 days. Max Daily Amount: 400 mg [facility] levETIRAcet am (KEPPRA) 1000 MG tablet 12-18 00:00: 00 03-18 23:59 :00 Yes 2000mg Q.5D Take 2 tablets (2,000 mg total) by mouth 2 (two) times daily for 90 days Look-ali ke/Sound-a like medication . [facility] rifAXIMin 550 mg Tab 12-18 00:00: 00 03-18 23:59 :00 Yes 550mg Q.5D Take 1 tablet (550 mg total) by mouth 2 (two) times daily for 90 days. [facility] doxazosin (CARDURA) 1 MG tablet 12-18 00:00: 00 01-17 23:59 :00 Yes 1mg QD Take 1 tablet (1 mg total) by mouth nightly for 30 days. [facility] LORazepam (ATIVAN) 1 MG tablet 2022-07 10:57: 52 Yes 1mg Take 1 tablet (1 mg total) by mouth 2 (two) times daily as needed for Anxiety. [facility] thiamine 100 mg Tab tablet 2022-07 00:00: 00 10-19 23:59 :00 No 100mg QD Take 1 tablet (100 mg total) by mouth daily for 90 days. [facility] folic acid (FOLVITE) 1 MG tablet 2022-07 00:00: 00 10-19 23:59 :00 No 1mg QD Take 1 tablet (1 mg total) by mouth daily for 90 days. [facility] furosemide (LASIX) 40 MG tablet 2022-07 00:00: 00 10-18 23:59 :00 No 40mg QD Take 1 tablet (40 mg total) by mouth daily for 90 days. [facility] pantoprazol e (PROTONIX) 40 MG tablet 2022-07 00:00: 00 10-18 23:59 :00 No 40mg Q.5D Take 1 tablet (40 mg total) by mouth 2 (two) times daily for 90 days. [facility] iron-multiv itamins-min erals (THERAGRAN- M) 9 mg iron-400 mcg Tab tablet 2022-07 00:00: 00 10-18 23:59 :00 No 1{tbl} QD Take 1 tablet by mouth daily for 90 days. [facility] spironolact one (ALDACTONE) 50 MG tablet 2022-07 00:00: 00 10-18 23:59 :00 No 25mg QD Take 0.5 tablets (25 mg total) by mouth daily for 90 days. [facility] chlordiazeP OXIDE (LIBRIUM) 25 MG capsule 2022-07 00:00: 00 07-26 23:59 :00 No 25mg QD Take 1 capsule (25 mg total) by mouth daily for 5 days. Max Daily Amount: 25 mg [facility] furosemide (LASIX) 40 MG tablet 12-20 14:45: 00 07-21 00:00 :00 No 40mg QD Take 1 tablet (40 mg total) by mouth in the morning. [facility] multivitami n (THERAGRAN) tablet 12-20 14:45: 00 12-19 00:00 :00 No 1{tbl} QD Take 1 tablet by mouth in the morning. [facility] folic acid (FOLVITE) 1 MG tablet 12-20 00:00: 00 01-19 23:59 :00 No 1mg QD Take 1 tablet (1 mg total) by mouth in the morning for 30 days. [facility] thiamine 100 mg Tab tablet 12-20 00:00: 00 01-19 23:59 :00 No 100mg QD Take 1 tablet (100 mg total) by mouth in the morning for 30 days. [facility] LORazepam (ATIVAN) 1 MG tablet 12-19 15:20: 28 Yes 1mg Take 1 tablet (1 mg total) by mouth 2 (two) times daily as needed for Anxiety. [facility] famotidine (PEPCID) 20 MG tablet 12-19 11:28: 38 12-19 00:00 :00 No 20mg Q.5D Take 1 tablet (20 mg total) by mouth in the morning and 1 tablet (20 mg total) before bedtime. [facility] metoclopram naye (REGLAN) 5 MG tablet 12-19 11:28: 38 12-19 00:00 :00 No 5mg Q.[id number] 3D Take 1 tablet (5 mg total) by mouth in the morning and 1 tablet (5 mg total) at noon and 1 tablet (5 mg total) in the evening. [facility] famotidine (PEPCID) 20 MG tablet 12-19 00:00: 00 03-19 23:59 :00 No 20mg Q.5D Take 1 tablet (20 mg total) by mouth in the morning and 1 tablet (20 mg total) before bedtime. Do all this for 90 days. [facility] metoclopram naye (REGLAN) 5 MG tablet 12-19 00:00: 00 01-18 23:59 :00 No 5mg Q.[id number] 3D Take 1 tablet (5 mg total) by mouth in the morning and 1 tablet (5 mg total) at noon and 1 tablet (5 mg total) in the evening. Do all this for 30 days. [facility] multivitami n (THERAGRAN) tablet 12-19 00:00: 00 01-18 23:59 :00 No 1{tbl} QD Take 1 tablet by mouth in the morning for 30 days. [facility] chlordiazeP OXIDE (LIBRIUM) 25 MG capsule 12-19 00:00: 00 12-22 23:59 :00 No 25mg QD Take 1 capsule (25 mg total) by mouth in the morning for 3 days. Max Daily Amount: 25 mg. [facility] oxazepam 15 mg capsule 10-12 00:00: 00 Yes [id number] 15mg Take 1 capsule by mouth every 4 (four) hours as needed (Only while awake for DBP equal to or greater than 100, HR equal to or greater than 100.). [facility] foLIC acid 1 mg tablet 10-10 00:00: 00 Yes [id number] 1mg Take 1 tablet by mouth in the morning. [facility] pantoprazol e 40 mg EC tablet 10-10 00:00: 00 Yes [id number] 40mg Take 1 tablet by mouth in the morning and 1 tablet in the evening. [facility] propranoloL 10 mg tablet 10-10 00:00: 00 Yes [id number] 10mg Take 1 tablet by mouth in the morning and 1 tablet in the evening. [facility] thiamine 100 mg tablet 10-10 00:00: 00 Yes [id number] 100mg Take 1 tablet by mouth in the morning. [facility] ferrous sulfate (IRON) 325 mg (65 mg iron) tablet 10-10 00:00: 00 Yes [id number] 325mg Take 1 tablet by mouth in the morning and 1 tablet at noon and 1 tablet in the evening. Take with meals. [facility] polyethylen e glycol 3350 17 gram/dose powder 10-10 00:00: 00 Yes [id number] 17g Take 17 g by mouth in the morning. [facility] oxazepam 15 mg capsule 10-10 00:00: 00 10-09 00:00 :00 No [id number] 15mg Take 1 capsule by mouth every 12 (twelve) hours for 1 day. [facility] oxazepam (SERAX) capsule 15 mg 10-09 18:00: 09 10-10 18:14 :00 No 15mg [Order 1 Start] Name: oxazepam (SERAX) capsule 15 mg [...] Mon10/11/22 at 0515, Routine [Order 2 End] [facility] iron sucrose (VENOFER) 300 mg in NaCl 0.9% (NS) 250 mL infusion 10-09 13:45: 00 10-09 17:37 :00 No 300mg 300 mg, IV Infusion, ONCE, Administer over 1.5 Hours, On Mon10/09/22 at 0845, For 1 dose [facility] magnesium sulfate in water 4 gram/50 mL (8 %) IV Piggyback 4 g 10-09 12:30: 00 10-09 17:18 :00 No 4g 4 g, IV Piggyback, at 25 mL/hr Administer over 120 Minutes, ONCE, 1 dose, On Mon10/09/22 at 0730, Routine [facility] melatonin (MELATIN) tablet 3 mg 10-09 05:45: 00 Yes 3mg 3 mg, Oral, QHS, First dose on Mon10/09/22 at 0045, Until Discontinu ed, Routine [facility] thiamine 100 mg tablet 10-09 00:00: 00 Yes [id number] 100mg Take 1 tablet by mouth in the morning. [facility] ferrous sulfate (IRON) 325 mg (65 mg iron) tablet 10-09 00:00: 00 Yes [id number] 325mg Take 1 tablet by mouth in the morning and 1 tablet at noon and 1 tablet in the evening. Take with meals. [facility] polyethylen e glycol 3350 17 gram/dose powder 10-09 00:00: 00 Yes [id number] 17g Take 17 g by mouth in the morning. [facility] oxazepam 15 mg capsule 10-09 00:00: 00 10-11 04:59 :00 No [id number] 15mg Take 1 capsule by mouth every 8 (eight) hours for 1 day. [facility] phytonadion e (VITAMIN K) 10 mg in NaCl 0.9% (NS) piggyback 10-08 17:15: 00 10-11 17:14 :00 No 10mg IV Piggyback, Q24H ABX, 3 doses, First dose on Mon10/08/22 at 1215, Last dose on Mon10/10/22 at 1215, 50 mL [facility] oxazepam (SERAX) capsule 15 mg 10-08 16:00: 09 Yes 15mg 15 mg, Oral, Q4HPRN, Starting on Mon10/08/22 at 1100, Until Discontinu ed, Routine, Only while awake for DBP equal to or greater than 100, HR equal to or greater than 100. [facility] thiamine (VITAMIN B1) tablet 100 mg 10-08 14:00: 00 Yes 100mg 100 mg, Oral, DAILY, First dose on Mon10/08/22 at 0900, Until Discontinu ed, Routine [facility] foLIC acid (FOLATE) tablet 1 mg 10-08 14:00: 00 Yes 1mg 1 mg, Oral, DAILY, First dose on Mon10/08/22 at 0900, Until Discontinu ed, Routine [facility] magnesium sulfate in water 4 gram/50 mL (8 %) IV Piggyback 4 g 10-08 14:00: 00 10-08 16:51 :00 No 4g 4 g, IV Piggyback, at 25 mL/hr Administer over 120 Minutes, ONCE, 1 dose, On 10/08/23 at 0900, Routine [facility] pantoprazol e (PROTONIX) injection 40 mg 10-08 13:00: 00 Yes 40mg 40 mg, Slow IV Push, Q12H, First dose on Mon10/08/22 at 0800, Until Discontinu ed [facility] oxazepam (SERAX) capsule 10 mg 10-08 04:35: 10 Yes 10mg 10 mg, Oral, Q6HPRN, Starting on Mon10/07/22 at 2335, Until Discontinu ed, Routine, Withdrawal signs [facility] pantoprazol e (PROTONIX) EC tablet 40 mg 10-08 01:00: 00 10-08 12:22 :26 No 40mg 40 mg, Oral, BID, First dose on Mon10/07/22 at 2000, Until Discontinu ed, Routine [facility] ondansetron (ZOFRAN (PF)) injection 4 mg 10-07 15:26: 20 Yes 4mg 4 mg, Slow IV Push, Q6HPRN, Starting on Mon10/07/22 at 1026, Until Discontinu ed, Routine, Nausea and Vomiting (N/V) [facility] acetaminoph en (TYLENOL) tablet 650 mg 10-07 15:26: 19 Yes 650mg 650 mg, Oral, Q6HPRN, Starting on Mon10/07/22 at 1026, Until Discontinu ed, Routine, Pain (scale 1-3) [facility] foLIC acid 1 mg tablet 08-25 00:00: 00 Yes [id number] 1mg Take 1 tablet by mouth in the morning. [facility] pantoprazol e (PROTONIX) EC tablet 40 mg 08-24 14:00: 00 Yes 40mg 40 mg, Oral, BID, First dose on Mon08/24/22 at 0800, Until Discontinu ed, Routine [facility] KCL (KLOR-CON M20) tablet 40 mEq 08-24 13:30: 00 08-24 14:14 :00 No 40meq 40 mEq, Oral, ONCE, 1 dose, On Mon08/24/22 at 0730, Routine [facility] propranoloL (INDERAL) tablet 10 mg 08-24 02:00: 00 Yes 10mg 10 mg, Oral, BID, First dose on Mon08/23/22 at 2000, Until Discontinu ed, Routine [facility] phytonadion e (vitamin K1) (MEPHYTON) tablet 5 mg 08-24 00:45: 00 08-26 14:59 :00 No 5mg 5 mg, Oral, DAILY, 3 doses, First dose on Mon08/23/22 at 1845, Last dose on Mon08/25/22 at 0900, Routine [facility] pantoprazol e 40 mg EC tablet 08-24 00:00: 00 Yes [id number] 40mg Take 1 tablet by mouth in the morning and 1 tablet in the evening. [facility] propranoloL 10 mg tablet 08-24 00:00: 00 Yes [id number] 10mg Take 1 tablet by mouth in the morning and 1 tablet in the evening. [facility] magnesium sulfate in water 4 gram/50 mL (8 %) IV Piggyback 4 g 08-23 09:30: 00 08-23 14:00 :00 No 4g 4 g, IV Piggyback, at 25 mL/hr Administer over 120 Minutes, ONCE, 1 dose, On Mon08/23/22 at 0330, Routine [facility] foLIC acid (FOLATE) tablet 1 mg 08-22 15:00: 00 Yes 1mg 1 mg, Oral, DAILY, First dose on Mon08/22/22 at 0900, Until Discontinu ed, Routine [facility] iron sucrose (VENOFER) 200 mg in NaCl 0.9% (NS) 100 mL infusion 08-22 15:00: 00 08-27 14:59 :00 No 200mg 200 mg, IV Infusion, DAILY, Administer over 1.5 Hours, First dose on Mon08/22/22 at 0900, For 5 days [facility] magnesium sulfate in water 4 gram/50 mL (8 %) IV Piggyback 4 g 08-22 04:45: 00 08-22 08:35 :00 No 4g 4 g, IV Piggyback, at 25 mL/hr Administer over 120 Minutes, ONCE, 1 dose, On Mon08/21/22 at 2245, Routine [facility] phytonadion e (VITAMIN K) 10 mg in NaCl 0.9% (NS) piggyback 08-22 04:22: 00 08-22 08:42 :00 No 10mg IV Piggyback, ONCE, 1 dose, On Mon08/21/22 at 2230, 50 mL [facility] pantoprazol e (PROTONIX) injection 80 mg 08-22 03:16: 00 08-22 04:15 :00 No 80mg 80 mg, Slow IV Push, ONCE, 1 dose, On Mon08/21/22 at 2130 [facility] lactulose (CEPHULAC) solution 30 mL 08-22 02:00: 00 Yes 30mL 30 mL, Oral, BID, First dose on Mon08/21/22 at 2000, Until Discontinu ed, Routine [facility] acetaminoph en (TYLENOL) tablet 650 mg 08-22 01:51: 03 Yes 650mg 650 mg, Oral, Q6HPRN, Starting on Mon08/21/22 at 1951, Until Discontinu ed, Routine, Pain (scale 1-3) [facility] pantoprazol e (PROTONIX) 80 mg in NaCl 0.9%(NS) 500 mL IV infusion (CNR) 08-22 01:30: 00 08-24 12:39 :06 No 8mg/h 8 mg/hr (50 mL/hr), IV Infusion, CONTINUOUS , Starting on Mon08/21/22 at 1930 [facility] cefTRIAXone (ROCEPHIN) 1,000 mg in NaCl 0.9% (NS) 50 mL MINI-BAG 08-22 01:30: 00 08-23 16:35 :33 No 1000mg 1,000 mg, Intravenou s, Q24H ABX, 7 doses, First dose on 08/21/22 at 1930, Last dose on 08/27/22 at 1930, Administer over 30 Minutes, 50 mL
Reas on for Anti-Infec tive: Empiric Therapy for Suspected Infection< br>Empiric Therapy Site: Abdominal< br>Duratio n of therapy: 5 days [facility] oxazepam (SERAX) capsule 15 mg 08-22 01:20: 49 Yes 15mg 15 mg, Oral, Q4HPRN, Starting on 08/21/22 at 1920, Until Discontinu ed, Routine, Only while awake for DBP equal to or greater than 100, HR equal to or greater than 100. [facility] folic acid (FOLVITE) 1 MG tablet 12-29 00:00: 00 01-28 23:59 :00 No 1mg QD Take 1 tablet (1 mg total) by mouth daily for 30 days. [facility] famotidine (PEPCID) 20 MG tablet 12-28 14:00: 10 Yes 20mg Q.5D Take 20 mg by mouth 2 (two) times daily. [facility] LORazepam (ATIVAN) 1 MG tablet 12-28 14:00: 10 Yes 1mg Take 1 mg by mouth 2 (two) times daily as needed for Anxiety. [facility] metoclopram naye (REGLAN) 5 MG tablet 12-28 14:00: 10 Yes 5mg [id number] 3D Take 5 mg by mouth 3 (three) times daily. [facility] chlordiazeP OXIDE (LIBRIUM) 10 MG capsule 12-28 11:11: 26 12-28 00:00 :00 No 10mg Q.[id number] 3D Take 10 mg by mouth 3 (three) times daily. [facility] multivitami n with minerals tablet 12-28 11:11: 26 12-28 00:00 :00 No 1{tbl} QD Take 1 tablet by mouth daily. [facility] ondansetron (ZOFRAN) 4 MG tablet 12-28 11:11: 26 12-28 00:00 :00 No 4mg Take 4 mg by mouth every 8 (eight) hours as needed for Nausea. [facility] thiamine 100 MG tablet 12-28 11:11: 26 12-28 00:00 :00 No 100mg QD Take 100 mg by mouth daily. [facility] multivitami n with minerals tablet 12-28 00:00: 00 01-27 23:59 :00 No 1{tbl} QD Take 1 tablet by mouth daily for 30 days. [facility] thiamine 100 MG tablet 12-28 00:00: 00 01-27 23:59 :00 No 100mg QD Take 1 tablet (100 mg total) by mouth daily for 30 days. [facility] QUEtiapine (SEROquel) 25 MG tablet 12-28 00:00: 00 01-27 23:59 :00 No 25mg QD Take 1 tablet (25 mg total) by mouth nightly for 30 days. [facility] ondansetron (ZOFRAN) 4 MG tablet 12-28 00:00: 00 01-07 23:59 :00 No 4mg Take 1 tablet (4 mg total) by mouth every 8 (eight) hours as needed for Nausea for up to 10 days. [facility] chlordiazeP OXIDE (LIBRIUM) 10 MG capsule 12-28 00:00: 00 01-02 23:59 :00 No 10mg QD Take 1 capsule (10 mg total) by mouth daily for 5 days. Max Daily Amount: 10 mg [facility] Vital Signs Vital Name Observation Time Observation Value Comments S ource Height 2023-03-26 20:00:00 162.56 CM Weight 2023-03-26 20:00:00 67.2 KG WEIGHT 2023-12-17 05:29:00 65.772 kg HEIGHT 2023-12-16 06:00:00 170.2 cm WEIGHT 2023-12-16 06:00:00 67.3 kg WEIGHT 2023-12-15 08:00:00 66.1 kg WEIGHT 2023-12-11 05:47:00 65 kg WEIGHT 2023-12-10 06:00:00 63.5 kg HEIGHT 2023-12-09 16:45:00 170.2 cm WEIGHT 2023-12-09 16:45:00 63.4 kg WEIGHT 2023-12-17 05:29:00 65.772 kg HEIGHT 2023-12-16 06:00:00 170.2 cm WEIGHT 2023-12-16 06:00:00 67.3 kg WEIGHT 2023-12-15 08:00:00 66.1 kg WEIGHT 2023-12-11 05:47:00 65 kg WEIGHT 2023-12-10 06:00:00 63.5 kg HEIGHT 2023-12-09 16:45:00 170.2 cm WEIGHT 2023-12-09 16:45:00 63.4 kg HEIGHT 2023-07-18 10:42:00 162.6 cm WEIGHT 2023-07-18 10:42:00 72.576 kg HEIGHT 2023-07-18 10:42:00 162.6 cm WEIGHT 2023-07-18 10:42:00 72.576 kg Height 2023-03-26 20:00:00 162.56 CM Weight 2023-03-26 20:00:00 67.2 KG Height 2023-03-24 21:24:00 165.1 CM Weight 2023-03-24 21:24:00 81.3 KG Height 2023-03-24 21:24:00 165.1 CM Weight 2023-03-24 21:24:00 81.3 KG Height 2023-01-01 19:07:00 162.56 CM Weight 2023-01-01 19:07:00 68 KG HEIGHT 2022-12-14 15:29:00 162.6 cm WEIGHT 2022-12-14 15:29:00 68.04 kg HEIGHT 2022-12-14 13:18:00 162.6 cm HEIGHT 2022-12-14 15:29:00 162.6 cm WEIGHT 2022-12-14 15:29:00 68.04 kg HEIGHT 2022-12-14 13:18:00 162.6 cm Systolic blood pressure 2022-10-09 17:21:00 128 mm[Hg] [facility] Diastolic blood pressure 2022-10-09 17:21:00 89 mm[Hg] [facility] Heart rate 2022-10-09 17:21:00 107 /min [facility] Body temperature 2022-10-09 17:21:00 36.5 Carley [facility] Respiratory rate 2022-10-09 17:21:00 18 /min [facility] Oxygen saturation in Arterial blood by Pulse oximetry 2022-10-09 17:21:00 98 /min [facility] Body height 2022-10-07 20:10:00 162.6 cm [facility] Body weight 2022-10-07 20:10:00 68.04 kg [facility] BMI 2022-10-07 20:10:00 25.75 kg/m2 [facility] Systolic blood pressure 2022-08-24 18:43:00 139 mm[Hg] [facility] Diastolic blood pressure 2022-08-24 18:43:00 79 mm[Hg] [facility] Heart rate 2022-08-24 18:43:00 63 /min [facility] Body temperature 2022-08-24 18:43:00 36.33 Carley [facility] Respiratory rate 2022-08-24 18:43:00 19 /min [facility] Oxygen saturation in Arterial blood by Pulse oximetry 2022-08-24 18:43:00 99 /min [facility] Body height 2022-08-23 14:57:00 162.6 cm [facility] Body weight 2022-08-23 14:57:00 69.4 kg [facility] BMI 2022-08-23 14:57:00 26.26 kg/m2 [facility] Height 2022-06-08 22:19:00 162.56 CM Weight 2022-06-08 22:19:00 66.22 KG WEIGHT 2021-12-18 11:00:00 64.819 kg HEIGHT 2021-12-18 11:00:00 162.6 cm WEIGHT 2021-12-18 11:00:00 64.819 kg HEIGHT 2021-12-18 11:00:00 162.6 cm Heart rate 2023-12-19 12:31:02 79 /min [facility] Respiratory rate 2023-12-19 12:31:02 18 /min [facility] Oxygen saturation in Arterial blood by Pulse oximetry 2023-12-19 12:31:02 93 /min [facility] Body temperature 2023-12-19 12:30:58 36.83 Carley [facility] Systolic blood pressure 2023-12-19 12:29:45 119 mm[Hg] [facility] Diastolic blood pressure 2023-12-19 12:29:45 69 mm[Hg] [facility] Body weight 2023-12-17 05:29:00 65.772 kg [facility] BMI 2023-12-17 05:29:00 22.70 kg/m2 [facility] Body height 2023-12-16 06:00:00 170.2 cm [facility] Systolic blood pressure 2023-07-22 08:00:00 133 mm[Hg] [facility] Diastolic blood pressure 2023-07-22 08:00:00 76 mm[Hg] [facility] Heart rate 2023-07-22 08:00:00 70 /min [facility] Body temperature 2023-07-22 08:00:00 35.89 Carley [facility] Respiratory rate 2023-07-22 08:00:00 16 /min [facility] Oxygen saturation in Arterial blood by Pulse oximetry 2023-07-22 08:00:00 98 /min [facility] Body height 2023-07-18 10:42:00 162.6 cm [facility] Body weight 2023-07-18 10:42:00 72.576 kg [facility] BMI 2023-07-18 10:42:00 27.46 kg/m2 [facility] Systolic blood pressure 2022-12-19 11:00:00 133 mm[Hg] [facility] Diastolic blood pressure 2022-12-19 11:00:00 61 mm[Hg] [facility] Heart rate 2022-12-19 11:00:00 100 /min [facility] Body temperature 2022-12-19 11:00:00 36.67 Carley [facility] Respiratory rate 2022-12-19 11:00:00 18 /min [facility] Oxygen saturation in Arterial blood by Pulse oximetry 2022-12-19 11:00:00 98 /min [facility] Body height 2022-12-14 15:29:00 162.6 cm [facility] Body weight 2022-12-14 15:29:00 68.04 kg [facility] BMI 2022-12-14 15:29:00 25.75 kg/m2 [facility] Body temperature 2021-12-28 08:35:00 36.61 Carley [facility] Respiratory rate 2021-12-28 08:35:00 18 /min [facility] Oxygen saturation in Arterial blood by Pulse oximetry 2021-12-28 08:35:00 97 /min [facility] Systolic blood pressure 2021-12-28 08:35:00 114 mm[Hg] [facility] Diastolic blood pressure 2021-12-28 08:35:00 66 mm[Hg] [facility] Heart rate 2021-12-28 08:35:00 85 /min [facility] Body height 2021-12-18 11:00:00 162.6 cm [facility] Body weight 2021-12-18 11:00:00 64.819 kg [facility] BMI 2021-12-18 11:00:00 24.53 kg/m2 [facility] Procedures Procedure Date / Time Performed Performing Clinician Source POCT-GLUCOSE METER 2023-12-19 05:11:00 Riley Parker [facility] BASIC METABOLIC PANEL 2023-12-19 05:01:00 Flakito [facility] CBC W/PLT COUNT & AUTO DIFFERENTIAL 2023-12-19 05:01:00 Flakito [facility] MAGNESIUM 2023-12-19 [facility]-19 05:01:00 [facility] CBC W/PLT COUNT & AUTO DIFFERENTIAL 2023-12-19 05:01:00 [facility] PROTHROMBIN TIME/INR 2023-12-19 04:59:00 [facility] POCT-GLUCOSE METER 2023-12-19 [facility] 2023-12-18 17:37:00 Keith, [facility] POCT-GLUCOSE METER 2023-12-18 [facility]23-12-18 [facility] 2023-12-18 04:28:00 [facility] CBC W/PLT COUNT & AUTO DIFFERENTIAL 2023-12-18 04:28:00 [facility] MAGNESIUM 2023-12-18 04:28:00 [facility] PHOSPHORUS 2023-12-18 04:28:00 [facility] PROTHROMBIN TIME/INR 2023-12-18 04:28:00 [facility] CBC W/PLT COUNT & AUTO DIFFERENTIAL 2023-12-18 04:28:00 [facility] POCT-GLUCOSE METER 2023-12-18 00:14:00 Keith, [facility] POCT-GLUCOSE METER 2023-12-17 17:49:00 Keith, [facility] POCT-GLUCOSE METER 2023-12-17 11:33:00 Keith, [facility] POCT-GLUCOSE METER 2023-12-17 07:16:00 [place] Banuelos [facility] BASIC METABOLIC PANEL 2023-12-17 05:28:00 [facility] CBC W/PLT COUNT & AUTO DIFFERENTIAL 2023-12-17 05:28:00 [facility] MAGNESIUM 2023-12-17 05:28[facility] 2023-12-17 05:28:00 [facility] PROTHROMBIN TIME/INR 2023-12-17 05:28:00 [facility] IRON, TIBC, % SAT. (WITHOUT FERRITIN) 2023-12-17 05:28:00 [facility] 2023-12-17 05:28:00 [facility] CBC W/PLT COUNT & AUTO DIFFERENTIAL 2023-12-17 05:28:00 [facility] POCT-GLUCOSE METER 2023-12-17 01:02:00 [facility] POCT-GLUCOSE METER 2023-12-16 11:52:00 Renita Reynaga [facility] POCT-GLUCOSE METER 2023-12-16 06:21:00 Renita Reynaga [facility] XR ABDOMEN/KUB 1 VIEW PORTABLE 2023-11-23 5 05:29:00 Marcos Diego [facility] POCT-GLUCOSE METER 2023-12-16 03:25:00 Renita Reynaga [facility] BASIC METABOLIC PANEL 2023-12-16 03:21:00 [facility] CBC W/PLT COUNT & AUTO DIFFERENTIAL 2023-12-16 03:21:00 [facility] 2023-12-16 03:21:00 [facility] PHOSPHORUS 2023-12-16 03:21:00 [facility] PROTHROMBIN TIME/INR 2023-12-16 03:21:00 [facility] CBC W/PLT COUNT & AUTO DIFFERENTIAL 2023-12-16 03:21:00 [facility] POCT-GLUCOSE METER 2023-12-15 17:35:00 Renita Reynaga [facility] POTASSIUM 2023-12-15 14:04:00 [facility]23-12-15 14:04:00 [facility] 2023-12-15 11:40:00 Renita Reynaga [facility] XR CHEST 1 VIEW PORTABLE / BEDSIDE 2023-12-15 07:38:20 Ehsan [facility] POCT-GLUCOSE METER 2023-12-15 07:13:00 Renita Reynaga [facility] BASIC METABOLIC PANEL 2023-12-15 03:01:00 [facility] CBC W/PLT COUNT & AUTO DIFFERENTIAL 2023-12-15 03:01:00 [facility] MAGNESIUM 2023-12-15 03:01:00 [facility] PHOSPHORUS 2023-12-15 03:01:00 [facility] PROTHROMBIN TIME/INR 2023-12-15 03:01:00 [facility] CBC W/PLT COUNT & AUTO DIFFERENTIAL 2023-12-15 03:01:00 [facility] (CELLAVISION MANUAL DIFF) 2023-12-15 03:01:00 [facility] POCT-GLUCOSE METER 2023-12-14 22:59:00 Renita Reynaga [facility] VANCOMYCIN LEVEL, TROUGH 2023-12-14 20:45:00 [facility] 2023-12-14 17:08:00 Renita Reynaga [facility] XR ABDOMEN/KUB 1 VIEW PORTABLE 2023-11-23 3 15:14:00 Ehsan [facility] LACTIC ACID, VENOUS 2023-12-14 14:44:00 Carol Sosa [facility] POCT-GLUCOSE METER 2023-12-14 14:23:00 Renita Reynaga [facility] MR BRAIN WITH & WITHOUT IV CONTRAST 2023-12-14 12:24:00 Lc Washburn [facility] BLOOD GAS, ARTERIAL 2023-12-14 07:18:00 Richard Calvillo [facility] POCT-GLUCOSE METER 2023-12-14 06:41:00 Renita Reynaga [facility] BASIC METABOLIC PANEL 2023-12-14 05:05:00 [facility] W/[facility]T [facility] & AUTO DIFFERENTIAL 2023-12-14 05:05:00 [facility] 2023-12-14 05:05:00 [facility] PHOSPHORUS 2023-12-14 05:05:00 [facility] PROTHROMBIN TIME/INR 2023-12-14 05:05:00 [facility] CBC W/PLT COUNT & AUTO DIFFERENTIAL 2023-12-14 05:05:00 [facility] POCT-GLUCOSE METER 2023-12-14 01:00:00 Renita Reynaga [facility] XR CHEST 1 VIEW PORTABLE / BEDSIDE 2023-12-14 00:58:00 Ehsan [facility] POCT-GLUCOSE METER 2023-12-13 18:56:00 Renita Reynaga [facility] LACTIC ACID, ARTERIAL 2023-12-13 16:35:00 [facility] PO[facility]SE METER 2023-12-13 12:54:00 Renita Reynaga [facility] BASIC METABOLIC PANEL 2023-12-13 12:43:00 Ehsan [facility] SPUTUM CULTURE + GRAM STAIN 2023-12-13 10:30:00 Ehsan [facility] LACTIC ACID, ARTERIAL 2023-12-13 10:30:00 Ehsan [facility] BLOOD GAS, ARTERIAL 2023-12-13 05:34:00 Donna Zuleta [facility] BASIC METABOLIC PANEL 2023-12-13 04:06:00 [facility] CBC W/PLT COUNT & AUTO DIFFERENTIAL 2023-12-13 04:06:00 [facility] MAGNESIUM 2023-12-13 04:06:00 [facility] PHOSPHORUS 2023-12-13 04:06:00 [facility] PROTHROMBIN TIME/INR 2023-12-13 04:06:00 [facility] URINALYSIS W/ REFLEX URINE CULTURE 2023-12-13 [facility]:06[facility] & AUTO DIFFERENTIAL 2023-12-13 04:06:00 [facility] XR CHEST 1 VIEW PORTABLE / BEDSIDE 2023-12-13 02:53:00 Ehsan [facility] BLOOD CULTURE 2023-12-13 01:19[facility]00 [facility] PO[facility]SE METER 2023-12-12 23:41:00 Renita Reynaga [facility] XR ABDOMEN/KUB 1 VIEW PORTABLE 2023-11-23 1 19:24:00 Ehsan [facility] POCT-GLUCOSE METER 2023-12-12 17:17:00 Renita Reynaga [facility] XR ABDOMEN/KUB 1 VIEW PORTABLE 2023-11-23 1 16:37:00 Ehsan [facility] XR CHEST 1 VIEW PORTABLE / BEDSIDE 2023-12-12 16:37:00 Renita Reynaga [facility] PROCALCITONIN 2023-12-12 11:59:00 Richard Calvillo [facility] POCT-GLUCOSE METER 2023-12-12 11:54:00 Renita Reynaga [facility] 2D ECHO W/ DOPPLER (CW/PW/COLOR) 2023-11 09:58:49 [facility] PHENOBARBITAL LEVEL 2023-12-12 08:23:00 Ehsan [facility] XR CHEST 1 VIEW PORTABLE / BEDSIDE 2023-12-12 05:15:00 [facility] BASIC METABOLIC PANEL 2023-12-12 04:35:00 [facility] CBC W/PLT COUNT & AUTO DIFFERENTIAL 2023-12-12 04:35:00 [facility] MAGNESIUM 2023-12-12 04:35:00 [facility] PHOSPHORUS 2023-12-12 04:35:00 [facility] PROTHROMBIN TIME/INR 2023-12-12 04:35:00 [facility] ALBUMIN 2023-12-12 04:35:00 Anjel [facility] AMMONIA 2023-12-12 04:35:00 Anjel [facility] CBC W/PLT COUNT & AUTO DIFFERENTIAL 2023-12-12 04:35:00 [facility] BLOOD GAS, ARTERIAL 2023-12-12 04:34:00 Donna Zuleta [facility] PREPARE LEUKO-REDUCED RBC 2023-12-11 23:55:00 Lc Washburn [facility] POCT-GLUCOSE METER 2023-12-11 23:45:00 Renita Reynaga [facility] POTASSIUM 2023-12-11 21:00:00 [place] [facility] POCT-GLUCOSE METER 2023-12-11 17:24:00 Renita Reynaga [facility] POTASSIUM 2023-12-11 13:21:00 Rajinder [facility] MAGNESIUM 2023-12-11 13:21:00 Rajinder [facility] POCT-GLUCOSE METER 2023-12-11 11:49:00 Renita Reynaga [facility] PROTHROMBIN TIME/INR 2023-12-11 11:01:00 [facility] EEG 12-26 HR CONTINUOUS MONITORING WITH VIDEO 2023-12-11 10:08:49 [facility] BLOOD GAS, ARTERIAL 2023-12-11 08:50:00 [facility] PO[facility]SE [facility] 2023-12-11 05:42:00 Yan [facility] BLOOD GAS, ARTERIAL 2023-12-11 04:16:00 Donna Zuleta [facility] BASIC METABOLIC PANEL 2023-12-11 04:15:00 [facility] CBC W/PLT COUNT & AUTO DIFFERENTIAL 2023-12-11 04:15:00 [facility] 2023-12-11 04:15:00 [facility] PHOS[facility]US 2023-12-11 04:15:00 [facility] CBC W/PLT COUNT & AUTO DIFFERENTIAL 2023-12-11 04:15:00 [facility] XR CHEST 1 VIEW PORTABLE / BEDSIDE 2023-12-11 03:30:00 [facility] POCT-GLUCOSE METER 2023-12-10 23:58:00 Yan [facility] CBC (HEMOGRAM ONLY) 2023-12-10 19:44[facility] 2023-12-10 19:20:[address] [facility] BLOOD GAS, ARTERIAL 2023-12-10 14:53:00 Richard Calvillo [facility] TRANSFUSE LEUKO-REDUCED RED BLOOD CELLS 2023-12-10 14:10:00 Inocente [facility] POCT-GLUCOSE METER 2023-12-10 14:00:00 Yan [facility] CYTOLOGY 2023-12-10 13:31:00 Inocente [facility] CSF CELL COUNT W/DIFFERENTIAL 2023-12-10 13:28:00 [facility] PROTEIN, CSF 2023-12-10 13:28:00 [facility] GLUCOSE, CSF 2023-12-10 13:28:00 [facility] CSF CULTURE + GRAM STAIN 2023-12-10 13:25[facility] MENINGIT[facility]/ENCEPHALITIS PANEL 2023-12-10 13:25:00 [facility] XR CHEST 1 VIEW PORTABLE / BEDSIDE 2023-12-10 12:06:09 [facility] BLOOD GAS, ARTERIAL 2023-12-10 11:56:00 [facility] CREATINE KINASE (CK) 2023-12-10 11:55[facility] 2023-12-10 11:55:00 [facility] TYPE AND SCREEN, AUTOMATED 2023-12-10 11:55:00 [facility] INSERT ARTERIAL LINE 2023-12-10 11:51:32 [facility] CENTRAL LINE 2023-12-10 11:46:36 [facility] POCT-GLUCOSE METER 2023-12-10 06:23:00 Yan [facility] PHENOBARBITAL LEVEL 2023-12-10 05:29:00 Ely Shah [facility] VITAMIN B12 2023-12-10 05:29:00 [facility] BLOOD GAS, ARTERIAL 2023-12-10 02:56:00 [facility] BASIC METABOLIC PANEL 2023-12-10 02:55:00 [facility] CBC W/PLT COUNT & AUTO DIFFERENTIAL 2023-12-10 02:55:00 [facility] CBC W/PLT COUNT & AUTO DIFFERENTIAL 2023-12-10 02:55:00 [facility] XR CHEST 1 VIEW PORTABLE / BEDSIDE 2023-12-10 02:23:00 [facility] POCT-GLUCOSE METER 2023-12-10 00:23:00 Yan [facility] XR ABDOMEN/KUB 1 VIEW PORTABLE 2023-11-22 8 19:41:57 Alyssa [facility] DRUG SCREEN, URINE, COMPREHENSIVE 12-08 18:16:00 [facility] LACTIC ACID, ARTERIAL 2023-12-09 18:16:00 [facility] BASIC METABOLIC PANEL 2023-12-09 17:24:00 [facility] CBC W/PLT COUNT & AUTO DIFFERENTIAL 2023-12-09 17:24:00 [facility]INR 2023-12-09 17:24:00 [facility] APTT 2023-12-09 17:24:00 [facility] TRIGLYCERIDES 2023-12-09 17:24:00 [facility] AMMONIA 2023-12-09 17:24:00 [facility] HEPATIC FUNCTION PANEL 2023-12-09 17:24:00 Alyssa [facility] CBC W/PLT COUNT & AUTO DIFFERENTIAL 2023-12-09 17:24:00 [facility] DRUG TEST, GENERAL TOXICOLOG Y, URINE 2023-12-09 17:23:00 Provider, Not In System [facility] PREPARE LEUKO-REDUCED RBC 2023-07-21 23:55:00 Remy [facility] POCT-GLUCOSE METER 2023-07-21 20:44:00 [facility]y [facility] POCT-GLUCOSE METER 2023-07-21 16:21:00 Remy [facility] POCT-GLUCOSE METER 2023-07-21 12:23:00 [facility] POCT-GLUCOSE METER 2023-07-21 07:02:00 [facility] COMPREHENSIVE METABOLIC PANEL 2023-07-21 04:43:00 Rory Jackson [facility] CBC W/PLT COUNT & AUTO DIFFERENTIAL 2023-07-21 04:43:00 Rory Jackson [facility] MAGNESIUM 2023-07-21 04:43:00 [facility] CBC W/PLT COUNT & AUTO DIFFERENTIAL 2023-07-21 04:43:00 Kennedy [facility] TRANSFUSE LEUKO-REDUCED RED BLOOD CELLS 2023-07-20 22:11:00 Remy [facility] POCT-GLUCOSE METER 2023-07-20 20:17:00 Remy [facility] TYPE AND SCREEN, AUTOMATED 2023-07-20 18:00:00 Remy [facility] POCT-GLUCOSE METER 2023-07-20 16:20:00 Remy [facility] POCT-GLUCOSE METER 2023-07-20 12:17:00 Remy [facility] COMPREHENSIVE METABOLIC PANEL 2023-07-20 06:22:00 Kennedy [facility] CBC W/PLT COUNT & AUTO DIFFERENTIAL 2023-07-20 06:22:00 Kennedy [facility] MAGNESIUM 2023-07-20 06:22:00 [facility] CBC W/PLT COUNT & AUTO DIFFERENTIAL 2023-07-20 06:22:00 [facility] POCT-GLUCOSE METER 2023-07-20 06:00:00 Remy [facility] POCT-GLUCOSE METER 2023-07-19 22:49:00 Remy [facility] POCT-GLUCOSE METER 2023-07-19 16:20:00 [facility] US ABDOMEN LIMITED 2023-07-19 15:15:18 [facility] POCT-GLUCOSE METER 2023-07-19 12:18:00 Remy [facility] POCT-GLUCOSE METER 2023-07-19 06:25:00 [facility] COMPREHENSIVE METABOLIC PANEL 2023-07-19 03:02:00 [facility] CBC W/PLT COUNT & AUTO DIFFERENTIAL 2023-07-19 03:02:00 [facility] MAGNESIUM 2023-07-19 03:02:00 [facility] ALPHA FETOPROTEIN (AFP), FLIP OR MARKER 2023-07-19 03:02:00 [facility] CBC W/PLT COUNT & AUTO DIFFERENTIAL 2023-07-19 03:02:00 [facility] POCT-GLUCOSE METER 2023-07-18 20:25:00 Remy [facility] EGD (ESOPHAGOGASTRODUODENOSCOPY) 2023-06 14:37:00 [facility] CBC W/PLT COUNT & AUTO DIFFERENTIAL 2023-07-18 09:52:00 [facility] COMPREHENSIVE METABOLIC PANEL 2023-07-18 09:52:00 [facility] MAGNESIUM 2023-07-18 09:52:00 [facility] HEMOGLOBIN A1C 2023-07-18 09:52:[facility]23-07-18 09:52:00 [facility] CBC W/PLT COUNT & AUTO DIFFERENTIAL 2023-07-18 09[facility]52:00 [facility] [facility] (MANUAL DIFFERENTIAL) 2023-07-18 09:52:00 Remy [facility] EKG-SCANNED 2023-07-18 00:00:00 Burak Guo [facility] POCT-GLUCOSE METER 2022-12-19 12:02:00 Kay Alberto [facility] CBC W/PLT COUNT & AUTO DIFFERENTIAL 2022-12-19 05:22:00 Isiah Corral [facility] COMPREHENSIVE METABOLIC PANEL 2022-12-19 05:22:00 Ellis, Mobin [facility] AMMONIA 2022-12-19 05:22:00 Ellis [facility] CBC W/PLT COUNT & AUTO DIFFERENTIAL 2022-12-19 05:22:00 Isiah Corral [facility] POCT-GLUCOSE METER 2022-12-19 05:14:[address] [facility] POCT-GLUCOSE METER 2022-12-18 17:53:[address] [facility] AMMONIA 2022-12-18 16:54:00 Ellis [facility] POCT-GLUCOSE METER 2022-12-18 11:50:[address] [facility] BASIC METABOLIC PANEL 2022-12-18 03:57:00 Ellis [facility] CBC W/PLT COUNT & AUTO DIFFERENTIAL 2022-12-18 03:57:00 Ellis [facility] CBC W/PLT COUNT & AUTO DIFFERENTIAL 2022-12-18 03:57:00 Ellis [facility] POCT-GLUCOSE METER 2022-12-17 06:37:[address] [facility] COMPREHENSIVE METABOLIC PANEL 2022-12-17 05:39:[address] [facility] CBC W/PLT COUNT & AUTO DIFFERENTIAL 2022-12-17 05:39:[address] [facility] MAGNESIUM 2022-12-17 05:39:[address] [facility] CBC W/PLT COUNT & AUTO DIFFERENTIAL 2022-12-17 05:39:[address] [facility] PREPARE LEUKO-REDUCED RBC 2022-12-16 23:54:[address] [facility] POCT-GLUCOSE METER 2022-12-16 23:45:[address] [facility] POCT-GLUCOSE METER 2022-12-16 16:53:00 RemyKay heck [facility] POCT-GLUCOSE METER 2022-12-16 12:09:00 RemyKay heck [facility] POCT-GLUCOSE METER 2022-12-16 08:27:00 Remy Kay [facility] COMPREHENSIVE METABOLIC PANEL 2022-12-16 04:31:00 [facility] CBC W/PLT COUNT & AUTO DIFFERENTIAL 2022-12-16 04:31:00 Remy Kay [facility] MAGNESIUM 2022-12-16 04:31:[address] [facility] CBC W/PLT COUNT & AUTO DIFFERENTIAL 2022-12-16 04:31:[address] [facility] TRANSFUSE LEUKO-REDUCED RED BLOOD CELLS 2022-12-15 11:25:[address] [facility] TYPE AND SCREEN, AUTOMATED 2022-12-15 06:07:[address] [facility] COMPREHENSIVE METABOLIC PANEL 2022-12-15 04:03:[address] [facility] CBC W/PLT COUNT & AUTO DIFFERENTIAL 2022-12-15 04:03:00 [facility] MAGNESIUM 2022-12-15 04:03:[address] [facility] CBC W/PLT COUNT & AUTO DIFFERENTIAL 2022-12-15 04:03:00 [facility] URINALYSIS W/ MICROSCOPIC 2022-12-14 23:39:[address] [facility] TROPONIN I 2022-12-14 23:39:[address] [facility] TROPONIN I 2022-12-14 16:29:[address] [facility] COMPREHENSIVE METABOLIC PANEL 2022-12-14 16:29:[address] [facility] MAGNESIUM 2022-12-14 16:29:00 Kay Alberto [facility] CBC W/PLT COUNT & AUTO DIFFERENTIAL 2022-12-14 16:29:00 Kay Alberto [facility] CBC W/PLT COUNT & AUTO DIFFERENTIAL 2022-12-14 16:29:00 Kay Alberto [facility] EKG-SCANNED 2022-12-14 00:00:00 Provider, Burak Limon [facility] AUTHORIZATION FOR RELEASE OF PHI 2022-09 05:01:00 Doctor Unassigned, Griffin [facility] MAGNESIUM 2022-10-09 10:24:00 Caro Starks [facility] HEPATIC FUNCTION PANEL (8007 6) (ALB,T.PRO,BILI T,BU/BC,ALT,AST,ALK PHOS) 2022-10-09 10:24:00 Caro Starks [facility] BASIC METABOLIC PANEL (NA, K , CL, CO2, GLUCOSE, BUN, CREATININE, CA) 2022-10-09 10:24:00 Caro Starks [facility] CBC WITH DIFF 2022-10-09 10:24:00 Caro Starks [facility] PROTHROMBIN TIME / INR 2022-10-09 10:24:00 Caro Starks [facility] CBC WITHOUT DIFF 2022-10-08 22:45:00 Tabatha Groves [facility] MAGNESIUM 2022-10-08 10:28:00 Yayo Gardnier [facility] HEPATIC FUNCTION PANEL (8007 6) (ALB,T.PRO,BILI T,BU/BC,ALT,AST,ALK PHOS) 2022-10-08 10:28:00 Tabatha Groves [facility] BASIC METABOLIC PANEL (NA, K , CL, CO2, GLUCOSE, BUN, CREATININE, CA) 2022-10-08 10:28:00 Yayo Gardiner [facility] CBC WITH DIFF 2022-10-08 10:28:00 Yayo Gardiner [facility] IRON PANEL 2022-10-07 22:55:00 Yayo Gardiner [facility] BLOOD CULTURE SCREEN 2022-10-07 19:11:00 Yaneli [facility] BLOOD CULTURE SCREEN 2022-10-07 18:30:00 Yaneli [facility] TROPONIN I 2022-10-07 16:28:00 Yaneli [facility] HEPATIC FUNCTION PANEL (8007 6) (ALB,T.PRO,BILI T,BU/BC,ALT,AST,ALK PHOS) 2022-10-07 16:28:00 Yaneli [facility] BASIC METABOLIC PANEL (NA, K , CL, CO2, GLUCOSE, BUN, CREATININE, CA) 2022-10-07 16:28:00 Yaneli [facility] CBC WITH DIFF 2022-10-07 16:28:00 Yaneli [facility] PROTHROMBIN TIME / INR 2022-10-07 16:28:00 Yaneli [facility] ACTIVATED PARTIAL THRMPLAS JOVAN 2022-09-21 7 16:28:00 Yaneli [facility] FIBRINOGEN 2022-10-07 16:28:00 Yaneli [facility] HB ABO GROUPING 2022-10-07 16:28:00 Yaneli [facility] EXTERNAL PROVIDER RECORDS 2022-09-01 06:01:00 Doctor Unassigned, Griffin [facility] COMP. METABOLIC PANEL (76740) 2022-08-24 10:03:00 Maya Nguyen [facility] CBC WITH DIFF 2022-08-24 10:03:[address] [facility] / INR 2022-08-23 19:38:00 Maya Nguyen [facility] FIBRINOGEN 2022-08-23 19:38:00 Patrick [facility] ESOPHAGOGASTRODUODENOSCOPY 2022-08-23 15:26:00 John Paul Zuniga [facility] EGD (ENDO) 2022-08-23 15:18:04 Maya Nguyen [facility] MAGNESIUM 2022-08-23 07:39:00 [facility] (NA, K , CL, CO2, GLUCOSE, BUN, CREATININE, CA) 2022-08-23 07:39:00 Ramo Allenip [facility] CBC WITH DIFF 2022-08-23 07:39:00 Alejandro Ulysses [facility] ENDOSCOPY PROCEDURE DOCUMENTATION 08-23 06:01:00 Doctor Unassigned, Griffin [facility] TRANSTHORACIC ECHO (TTE) COMPLETE 08-22 20:45:45 Alejandro Ulysses [facility] URINALYSIS 2022-08-22 20:06:00 [facility] COVID-19 (ID NOW RAPID TESTING) 17:35:00 [facility] LAB ONLY COVID INTERPRETATION 2022-08-22 17:35:00 [facility] CBC WITHOUT DIFF 2022-08-22 17:01:00 Ulysses Allen Doe [facility] FIBRINOGEN 2022-08-22 17:00:00 Alejandro Ulysses [facility] DUPLEX VENOUS LEGS BILATERAL - BY VASCULAR LAB 2022-08-22 16:45:27 [facility] XR CHEST 1 VW 2022-08-22 14:52:51 [facility] TRANSFUSE PACKED RBC 2022-08-22 10:33:00 [facility] PREPARE PACKED RBC 2022-08-22 10:17:48 [facility] POCT GLUCOSE (AUTOMATED) 2022-08-22 10:04:00 Rivka Crews [facility] TROPONIN I 2022-08-22 08:16:00 [facility] HEPATIC FUNCTION PANEL (8007 6) (ALB,T.PRO,BILI T,BU/BC,ALT,AST,ALK PHOS) 2022-08-22 08:16:00 [facility] BASIC METABOLIC PANEL (NA, K , CL, CO2, GLUCOSE, BUN, CREATININE, CA) 2022-08-22 08:16:00 [facility] ABORH CONFIRMATION (LAB ONLY) 2022-08-22 08:12:00 [facility] HB ABO GROUPING 2022-08-22 05:59:00 [facility] US ABDOMEN LIMITED 2022-08-22 04:56:28 [facility] BLOOD CULTURE SCREEN 2022-08-22 03:52:00 [facility] ETHANOL 2022-08-22 03:51:00 [facility] PROTHROMBIN TIME / INR 2022-08-22 03:51:00 [facility] ACTIVATED PARTIAL THRMPLAS JOVAN 2022-07-26 0 03:51:00 [facility] MAGNESIUM 2022-08-22 03:24:00 [facility] FERRITIN SERUM 2022-08-22 03:24:00 [facility] VITAMIN B12, LEVEL 2022-08-22 03:24:00 [facility] FOLATE 2022-08-22 03:24:00 [facility] TROPONIN I 2022-08-22 03:24:00 [facility] HEPATIC FUNCTION PANEL (8007 6) (ALB,T.PRO,BILI T,BU/BC,ALT,AST,ALK PHOS) 2022-08-22 03:24:00 [facility] BASIC METABOLIC PANEL (NA, K , CL, CO2, GLUCOSE, BUN, CREATININE, CA) 2022-08-22 03:24:00 [facility] LIPID PANEL (42200)(TOTAL CHOLESTEROL, TRIGLYCERIDES, HDL) 2022-08-22 03:24:00 [facility] IRON PANEL 2022-08-22 03:24:00 [facility] SALICYLATE 2022-08-22 03:24:00 [facility] CBC WITH DIFF 2022-08-22 03:24:00 [facility] GLYCOSYLATED HEMOGLOBIN (A1C) 2022-08-22 03:24:00 [facility] HEPATITIS B SURFACE ANTIBODY 2022-08-22 03:24:00 [facility] HEPATITIS B SURFACE ANTIGEN 2022-08-22 03:24:00 [facility] HCV ANTIBODY 2022-08-22 03:24:00 [facility] HEPATITIS B CORE ANTIBODY IGM 2022-08-22 03:24:00 [facility] HAV ANTIBODY (IGG AND IGM) 2022-08-22 03:24:00 [facility] HEPATITIS C VIRUS (HCV) BY QUANTITATIVE NAAT 2022-08-22 03:24:00 [facility] EXTRA TUBE RED 2022-08-22 03:24:00 Rivka Crews [facility] HB ECG ROUTINE & RHYTHM STRIP 2022-08-22 01:50:38 [facility] CBC W/PLT COUNT & AUTO DIFFERENTIAL 2021-12-28 04:28:[address] [facility] (MANUAL DIFFERENTIAL) 2021-12-28 04:28:[address] [facility] CBC W/PLT COUNT & AUTO DIFFERENTIAL 2021-12-28 04:28:[address] [facility] COMPREHENSIVE METABOLIC PANEL 2021-12-28 04:28:[address] [facility] MAGNESIUM 2021-12-28 04:28:[address] [facility] XR CHEST 1 VIEW PORTABLE / BEDSIDE 2021-12-28 01:23:[address] [facility] CBC (HEMOGRAM ONLY) 2021-12-27 03:38:00 Tiara [facility] BASIC METABOLIC PANEL 2021-12-27 03:38:00 Tiara [facility] US ABDOMEN LIMITED 2021-12-26 17:53:[facility] ONLY[facility] 2021-12-26 04:34:00 Tiara [facility] BASIC METABOLIC PANEL 2021-12-26 04:34:00 Tiara, [facility] MAGNESIUM 2021-12-26 04:34:[facility] ([facility] ONLY) 2021-12-25 10:57:[facility]IC MET[facility]OLIC PANEL 2021-12-25 10:57:[facility]OLIC PANEL 2021-12-24 04:54:[facility]IC METABOLIC PANEL 2021-12-23 04:39:00 [facility] 2021-12-23 04:39:00 Ethan [facility] BASIC METABOLIC PANEL 2021-12-22 06:13:00 Ethan [facility] MAGNESIUM 2021-12-22 06:13:00 [facility] CBC (HEMOGRAM ONLY) 2021-12-22 06:13:00 [facility] METABOLIC PANEL 2021-12-21 05:08:00 Lexie Longkahlil [facility] MAGNESIUM 2021-12-21 05:08:00 [facility] CBC (HEMOGRAM ONLY) 2021-12-21 05:08:00 [facility] W/PLT COUNT & AUTO DIFFERENTIAL 2021-12-20 06:45:00 Estefany [facility] CBC W/PLT COUNT & AUTO DIFFERENTIAL 2021-12-20 06:45:00 Estefany [facility] COMPREHENSIVE METABOLIC PANEL 2021-12-20 06:45:00 Estefany [facility] PREPARE LEUKO-REDUCED RBC 2021-12-19 23:54:00 Isiah Corral [facility] CBC W/PLT COUNT & AUTO DIFFERENTIAL 2021-12-19 05:52:00 Estefany [facility] CBC W/PLT COUNT & AUTO DIFFERENTIAL 2021-12-19 05:52:00 Estefany [facility] COMPREHENSIVE METABOLIC PANEL 2021-12-19 05:52:00 Estefany [facility] TRANSFUSE LEUKO-REDUCED RED BLOOD CELLS 2021-12-18 14:42:00 Ellis [facility] ABORH, MANUAL 2021-12-18 10:42:00 Ellis [facility] CBC W/PLT COUNT & AUTO DIFFERENTIAL 2021-12-18 06:21:00 Estefany [facility] HEPATIC FUNCTION PANEL 2021-12-18 06:[facility] 2021-12-18 06:21:00 [facility] PROT[facility]/INR 2021-12-18 06:21:00 Estefany [facility] CBC W/PLT COUNT & AUTO DIFFERENTIAL 2021-12-18 06:21:00 Estefany [facility] AMMONIA 2021-12-18 06:21:00 [facility] COMPREHENSIVE METABOLIC PANEL 2021-12-18 06:21:00 [facility] TYPE AND SCREEN, AUTOMATED 2021-12-18 06:21:00 [facility] E[facility]ED 2021-12-18 00:00:00 Provider, Default Scanning [facility] Plan of Care Planned Activity Planned Date Details Comments Source Future Scheduled Test 2026-07-18 00:00:00 Lipid panel (procedure) [code = 38883770] [facility] Future Scheduled Test 2026-07-18 00:00:00 Lipid panel (procedure) [code = 50593964] [facility] Future Scheduled Test 2024-12-18 00:00:00 Lipid panel (procedure) [code = 19341508] [facility] Future Scheduled Test 2024-12-18 00:00:00 Lipid panel (procedure) [code = 79425342] [facility] Future Scheduled Test 2024-12-18 00:00:00 Lipid panel (procedure) [code = 14958073] [facility] Future Scheduled Test 2024-12-18 00:00:00 Lipid panel (procedure) [code = 87531270] [facility] Future Scheduled Test 2024-12-18 00:00:00 Lipid panel (procedure) [code = 66963959] [facility] Future Scheduled Test 2024-12-18 00:00:00 Lipid panel (procedure) [code = 70960854] [facility] Future Scheduled Test 2024-12-18 00:00:00 Lipid panel (procedure) [code = 95588936] [facility] Future Scheduled Test 2024-12-18 00:00:00 Lipid panel (procedure) [code = 20855105] [facility] Future Scheduled Test 2024-12-18 00:00:00 Lipid panel (procedure) [code = 94637425] [facility] Future Scheduled Test 2024-12-18 00:00:00 Lipid panel (procedure) [code = 70981057] [facility] Future Scheduled Test 2024-12-18 00:00:00 Lipid panel (procedure) [code = 09596419] [facility] Future Scheduled Test 2024-12-18 00:00:00 Lipid panel (procedure) [code = 37906507] [facility] Future Scheduled Test 2024-12-18 00:00:00 Lipid panel (procedure) [code = 41036128] [facility] Future Scheduled Test 2024-12-18 00:00:00 Lipid panel (procedure) [code = 91597836] [facility] Future Scheduled Test 2024-12-18 00:00:00 Lipid panel (procedure) [code = 25161560] [facility] Future Scheduled Test 2024-12-18 00:00:00 Lipid panel (procedure) [code = 58924565] [facility] Future Scheduled Test 2024-12-18 00:00:00 Lipid panel (procedure) [code = 27111219] [facility] Future Scheduled Test 2024-12-18 00:00:00 Lipid panel (procedure) [code = 11363881] [facility] Future Scheduled Test 2024-12-18 00:00:00 Lipid panel (procedure) [code = 79270609] [facility] Future Scheduled Test 2024-12-18 00:00:00 Lipid panel (procedure) [code = 78329488] [facility] Future Scheduled Test 2024-12-18 00:00:00 Lipid panel (procedure) [code = 96322598] [facility] Future Scheduled Test 2024-12-18 00:00:00 Lipid panel (procedure) [code = 78572220] [facility] Future Scheduled Test 2024-12-18 00:00:00 Lipid panel (procedure) [code = 74059789] [facility] Future Scheduled Test 2024-12-18 00:00:00 Lipid panel (procedure) [code = 62125372] [facility] Future Scheduled Test 2024-12-18 00:00:00 Lipid panel (procedure) [code = 37825692] [facility] Future Scheduled Test 2024-12-18 00:00:00 Lipid panel (procedure) [code = 42161063] [facility] Future Scheduled Test 2024-12-18 00:00:00 Lipid panel (procedure) [code = 34394306] [facility] Future Scheduled Test 2024-12-18 00:00:00 Lipid panel (procedure) [code = 93775615] [facility] Future Scheduled Test 2024-12-18 00:00:00 Lipid panel (procedure) [code = 45330458] [facility] Future Scheduled Test 2024-12-18 00:00:00 Lipid panel (procedure) [code = 28285152] [facility] Future Scheduled Test 2024-12-18 00:00:00 Lipid panel (procedure) [code = 22675810] [facility] Future Scheduled Test 2024-03-24 00:00:00 Influenza Vaccine (Season Ended) [code = Influenza Vaccine (Season Ended)] [facility] Future Scheduled Test 2024-03-24 00:00:00 Influenza Vaccine (Season Ended) [code = Influenza Vaccine (Season Ended)] [facility] Future Scheduled Test 2023-07-24 00:00:00 DEPRESSION SCREENING (12+) [code = DEPRESSION SCREENING (12+)] [facility] Future Scheduled Test 2023-07-24 00:00:00 DEPRESSION SCREENING (12+) [code = DEPRESSION SCREENING (12+)] [facility] Future Scheduled Test 2023-03-24 00:00:00 Influenza Vaccine (#1) [code = Influenza Vaccine (#1)] [facility] Future Scheduled Test 2023-03-24 00:00:00 Influenza Vaccine (#1) [code = Influenza Vaccine (#1)] [facility] Future Scheduled Test 2023-03-24 00:00:00 Influenza Vaccine (#1) [code = Influenza Vaccine (#1)] [facility] Future Scheduled Test 2023-03-24 00:00:00 Influenza Vaccine (#1) [code = Influenza Vaccine (#1)] [facility] Future Scheduled Test 2023-03-24 00:00:00 Influenza Vaccine (#1) [code = Influenza Vaccine (#1)] [facility] Future Scheduled Test 2023-03-24 00:00:00 Influenza Vaccine (#1) [code = Influenza Vaccine (#1)] [facility] Future Scheduled Test 2023-03-24 00:00:00 INFLUENZA VACCINE (Season Ended) [code = INFLUENZA VACCINE (Season Ended)] [facility] Future Scheduled Test 2023-03-24 00:00:00 INFLUENZA VACCINE (Season Ended) [code = INFLUENZA VACCINE (Season Ended)] [facility] Future Scheduled Test 2023-03-24 00:00:00 INFLUENZA VACCINE (Season Ended) [code = INFLUENZA VACCINE (Season Ended)] [facility] Future Scheduled Test 2023-03-24 00:00:00 INFLUENZA VACCINE (Season Ended) [code = INFLUENZA VACCINE (Season Ended)] [facility] Future Scheduled Test 2023-03-24 00:00:00 Influenza Vaccine (#1) [code = Influenza Vaccine (#1)] [facility] Future Scheduled Test 2023-03-24 00:00:00 Influenza Vaccine (#1) [code = Influenza Vaccine (#1)] [facility] Future Scheduled Test 2023-03-24 00:00:00 Influenza Vaccine (#1) [code = Influenza Vaccine (#1)] [facility] Future Scheduled Test 2023-03-24 00:00:00 Influenza Vaccine (#1) [code = Influenza Vaccine (#1)] [facility] Future Scheduled Test 2023-03-24 00:00:00 Influenza Vaccine (#1) [code = Influenza Vaccine (#1)] [facility] Future Scheduled Test 2023-03-24 00:00:00 Influenza Vaccine (#1) [code = Influenza Vaccine (#1)] [facility] Future Scheduled Test 2023-03-24 00:00:00 Influenza Vaccine (#1) [code = Influenza Vaccine (#1)] [facility] Future Scheduled Test 2023-03-24 00:00:00 Influenza Vaccine (#1) [code = Influenza Vaccine (#1)] [facility] Future Scheduled Test 2023-03-24 00:00:00 Influenza Vaccine (#1) [code = Influenza Vaccine (#1)] [facility] Future Scheduled Test 2023-03-24 00:00:00 Influenza Vaccine (#1) [code = Influenza Vaccine (#1)] [facility] Future Scheduled Test 2023-03-24 00:00:00 Influenza Vaccine (#1) [code = Influenza Vaccine (#1)] [facility] Future Scheduled Test 2023-03-24 00:00:00 Influenza Vaccine (#1) [code = Influenza Vaccine (#1)] [facility] Future Scheduled Test 2023-03-24 00:00:00 Influenza Vaccine (#1) [code = Influenza Vaccine (#1)] [facility] Future Scheduled Test 2023-03-24 00:00:00 Influenza Vaccine (#1) [code = Influenza Vaccine (#1)] [facility] Future Scheduled Test 2023-03-24 00:00:00 Influenza Vaccine (#1) [code = Influenza Vaccine (#1)] [facility] Future Scheduled Test 2023-03-24 00:00:00 Influenza Vaccine (#1) [code = Influenza Vaccine (#1)] [facility] Future Scheduled Test 2023-03-24 00:00:00 Influenza Vaccine (#1) [code = Influenza Vaccine (#1)] [facility] Future Scheduled Test 2022-12-18 00:00:00 Tobacco Cessation Counseling and Screening (12+) [code = Tobacco Cessation Counseling and Screening (12+)] [facility] Future Scheduled Test 2022-12-18 00:00:00 Tobacco Cessation Counseling and Screening (12+) [code = Tobacco Cessation Counseling and Screening (12+)] [facility] Scheduled Test 2022-12-18 00:00:00 Tobacco Cessation Counseling and Screening (12+) [code = Tobacco Cessation Counseling and Screening (12+)] [facility] Scheduled Test 2022-12-18 00:00:00 Tobacco Cessation Counseling and Screening (12+) [code = Tobacco Cessation Counseling and Screening (12+)] [facility] Scheduled Test 2022-12-18 00:00:00 Tobacco Cessation Counseling and Screening (12+) [code = Tobacco Cessation Counseling and Screening (12+)] [facility] Scheduled Test 2022-12-18 00:00:00 Tobacco Cessation Counseling and Screening (12+) [code = Tobacco Cessation Counseling and Screening (12+)] [facility] Scheduled Test 2022-12-18 00:00:00 Tobacco Cessation Counseling and Screening (12+) [code = Tobacco Cessation Counseling and Screening (12+)] [facility] Future Scheduled Test 2022-12-18 00:00:00 Tobacco Cessation Counseling and Screening (12+) [code = Tobacco Cessation Counseling and Screening (12+)] [facility] Future Scheduled Test 2022-12-18 00:00:00 Tobacco Cessation Counseling and Screening (12+) [code = Tobacco Cessation Counseling and Screening (12+)] [facility] Scheduled Test 2022-12-18 00:00:00 Tobacco Cessation Counseling and Screening (12+) [code = Tobacco Cessation Counseling and Screening (12+)] [facility] Scheduled Test 2022-12-18 00:00:00 Tobacco Cessation Counseling and Screening (12+) [code = Tobacco Cessation Counseling and Screening (12+)] [facility] Scheduled Test 2022-12-18 00:00:00 Tobacco Cessation Counseling and Screening (12+) [code = Tobacco Cessation Counseling and Screening (12+)] [facility] Scheduled Test 2022-12-18 00:00:00 Tobacco Cessation Counseling and Screening (12+) [code = Tobacco Cessation Counseling and Screening (12+)] [facility] Scheduled Test 2022-12-18 00:00:00 Tobacco Cessation Counseling and Screening (12+) [code = Tobacco Cessation Counseling and Screening (12+)] [facility] Scheduled Test 2022-12-18 00:00:00 Tobacco Cessation Counseling and Screening (12+) [code = Tobacco Cessation Counseling and Screening (12+)] [facility] Scheduled Test 2022-12-18 00:00:00 Tobacco Cessation Counseling and Screening (12+) [code = Tobacco Cessation Counseling and Screening (12+)] [facility] Scheduled Test 2022-12-18 00:00:00 Tobacco Cessation Counseling and Screening (12+) [code = Tobacco Cessation Counseling and Screening (12+)] [facility] Scheduled Test 2022-12-18 00:00:00 Tobacco Cessation Counseling and Screening (12+) [code = Tobacco Cessation Counseling and Screening (12+)] [facility] Scheduled Test 2022-12-18 00:00:00 Tobacco Cessation Counseling and Screening (12+) [code = Tobacco Cessation Counseling and Screening (12+)] [facility] Scheduled Test 2022-12-18 00:00:00 Tobacco Cessation Counseling and Screening (12+) [code = Tobacco Cessation Counseling and Screening (12+)] [facility] Scheduled Test 2022-12-18 00:00:00 Tobacco Cessation Counseling and Screening (12+) [code = Tobacco Cessation Counseling and Screening (12+)] [facility] Scheduled Test 2022-12-18 00:00:00 Tobacco Cessation Counseling and Screening (12+) [code = Tobacco Cessation Counseling and Screening (12+)] [facility] Future Scheduled Test 2022-12-18 00:00:00 Tobacco Cessation Counseling and Screening (12+) [code = Tobacco Cessation Counseling and Screening (12+)] [facility] Future Scheduled Test 2022-07-24 00:00:00 DEPRESSION SCREENING (12+) [code = DEPRESSION SCREENING (12+)] [facility] Future Scheduled Test 2022-07-24 00:00:00 DEPRESSION SCREENING (12+) [code = DEPRESSION SCREENING (12+)] [facility] Future Scheduled Test 2022-07-24 00:00:00 DEPRESSION SCREENING (12+) [code = DEPRESSION SCREENING (12+)] [facility] Future Scheduled Test 2022-07-24 00:00:00 DEPRESSION SCREENING (12+) [code = DEPRESSION SCREENING (12+)] [facility] Future Scheduled Test 2022-07-24 00:00:00 DEPRESSION SCREENING (12+) [code = DEPRESSION SCREENING (12+)] [facility] Future Scheduled Test 2022-07-24 00:00:00 DEPRESSION SCREENING (12+) [code = DEPRESSION SCREENING (12+)] [facility] Future Scheduled Test 2022-07-24 00:00:00 DEPRESSION SCREENING (12+) [code = DEPRESSION SCREENING (12+)] [facility] Future Scheduled Test 2022-07-24 00:00:00 DEPRESSION SCREENING (12+) [code = DEPRESSION SCREENING (12+)] [facility] Future Scheduled Test 2022-07-24 00:00:00 DEPRESSION SCREENING (12+) [code = DEPRESSION SCREENING (12+)] [facility] Future Scheduled Test 2022-07-24 00:00:00 DEPRESSION SCREENING (12+) [code = DEPRESSION SCREENING (12+)] [facility] Future Scheduled Test 2022-07-24 00:00:00 DEPRESSION SCREENING (12+) [code = DEPRESSION SCREENING (12+)] [facility] Future Scheduled Test 2022-07-24 00:00:00 DEPRESSION SCREENING (12+) [code = DEPRESSION SCREENING (12+)] [facility] Future Scheduled Test 2022-07-24 00:00:00 DEPRESSION SCREENING (12+) [code = DEPRESSION SCREENING (12+)] [facility] Future Scheduled Test 2022-07-24 00:00:00 DEPRESSION SCREENING (12+) [code = DEPRESSION SCREENING (12+)] [facility] Future Scheduled Test 2022-07-24 00:00:00 DEPRESSION SCREENING (12+) [code = DEPRESSION SCREENING (12+)] [facility] Future Scheduled Test 2022-07-24 00:00:00 DEPRESSION SCREENING (12+) [code = DEPRESSION SCREENING (12+)] [facility] Future Scheduled Test 2022-07-24 00:00:00 DEPRESSION SCREENING (12+) [code = DEPRESSION SCREENING (12+)] [facility] Future Scheduled Test 2022-07-24 00:00:00 DEPRESSION SCREENING (12+) [code = DEPRESSION SCREENING (12+)] [facility] Future Scheduled Test 2022-07-24 00:00:00 DEPRESSION SCREENING (12+) [code = DEPRESSION SCREENING (12+)] [facility] Future Scheduled Test 2022-07-24 00:00:00 DEPRESSION SCREENING (12+) [code = DEPRESSION SCREENING (12+)] [facility] Future Scheduled Test 2022-07-24 00:00:00 DEPRESSION SCREENING (12+) [code = DEPRESSION SCREENING (12+)] [facility] Future Scheduled Test 2022-07-24 00:00:00 DEPRESSION SCREENING (12+) [code = DEPRESSION SCREENING (12+)] [facility] Future Scheduled Test 2022-07-24 00:00:00 DEPRESSION SCREENING (12+) [code = DEPRESSION SCREENING (12+)] [facility] Future Scheduled Test 2022-07-24 00:00:00 DEPRESSION SCREENING (12+) [code = DEPRESSION SCREENING (12+)] [facility] Future Scheduled Test 2022-07-24 00:00:00 DEPRESSION SCREENING (12+) [code = DEPRESSION SCREENING (12+)] [facility] Future Scheduled Test 2022-07-24 00:00:00 DEPRESSION SCREENING (12+) [code = DEPRESSION SCREENING (12+)] [facility] Future Scheduled Test 2022-07-24 00:00:00 DEPRESSION SCREENING (12+) [code = DEPRESSION SCREENING (12+)] [facility] Future Scheduled Test 2022-07-24 00:00:00 DEPRESSION SCREENING (12+) [code = DEPRESSION SCREENING (12+)] [facility] Future Scheduled Test 2022-07-24 00:00:00 DEPRESSION SCREENING (12+) [code = DEPRESSION SCREENING (12+)] [facility] Future Scheduled Test 2022-03-24 00:00:00 INFLUENZA VACCINE (#1) [code = INFLUENZA VACCINE (#1)] [facility] Future Scheduled Test 2022-03-24 00:00:00 INFLUENZA VACCINE (#1) [code = INFLUENZA VACCINE (#1)] [facility] Future Scheduled Test 2022-03-24 00:00:00 INFLUENZA VACCINE (#1) [code = INFLUENZA VACCINE (#1)] [facility] Future Scheduled Test 2022-03-24 00:00:00 INFLUENZA VACCINE (#1) [code = INFLUENZA VACCINE (#1)] [facility] Future Scheduled Test 2021-07-24 00:00:00 DEPRESSION SCREENING (12+) [code = DEPRESSION SCREENING (12+)] [facility] Future Scheduled Test 2021-07-24 00:00:00 DEPRESSION SCREENING (12+) [code = DEPRESSION SCREENING (12+)] [facility] Future Scheduled Test 2014 00:00:00 SHINGLES VACCINES (1 of 2) [code = SHINGLES VACCINES (1 of 2)] [facility] Future Scheduled Test 2014 00:00:00 SHINGLES VACCINES (1 of 2) [code = SHINGLES VACCINES (1 of 2)] [facility] Future Scheduled Test 2014 00:00:00 SHINGLES VACCINES (1 of 2) [code = SHINGLES VACCINES (1 of 2)] [facility] Future Scheduled Test 2014 00:00:00 SHINGLES VACCINES (1 of 2) [code = SHINGLES VACCINES (1 of 2)] [facility] Future Scheduled Test 2014 00:00:00 SHINGLES VACCINES (1 of 2) [code = SHINGLES VACCINES (1 of 2)] [facility] Future Scheduled Test 2014 00:00:00 SHINGLES VACCINES (1 of 2) [code = SHINGLES VACCINES (1 of 2)] [facility] Future Scheduled Test 2014 00:00:00 SHINGLES VACCINES (1 of 2) [code = SHINGLES VACCINES (1 of 2)] [facility] Future Scheduled Test 2014 00:00:00 SHINGLES VACCINES (1 of 2) [code = SHINGLES VACCINES (1 of 2)] [facility] Future Scheduled Test 2014 00:00:00 SHINGLES VACCINES (1 of 2) [code = SHINGLES VACCINES (1 of 2)] [facility] Future Scheduled Test 2014 00:00:00 SHINGLES VACCINES (1 of 2) [code = SHINGLES VACCINES (1 of 2)] [facility] Future Scheduled Test 2014 00:00:00 SHINGLES VACCINES (1 of 2) [code = SHINGLES VACCINES (1 of 2)] [facility] Future Scheduled Test 2014 00:00:00 SHINGLES VACCINES (1 of 2) [code = SHINGLES VACCINES (1 of 2)] [facility] Future Scheduled Test 2014 00:00:00 SHINGLES VACCINES (1 of 2) [code = SHINGLES VACCINES (1 of 2)] [facility] Future Scheduled Test 2014 00:00:00 SHINGLES VACCINES (1 of 2) [code = SHINGLES VACCINES (1 of 2)] [facility] Future Scheduled Test 2014 00:00:00 SHINGLES VACCINES (1 of 2) [code = SHINGLES VACCINES (1 of 2)] [facility] Future Scheduled Test 2014 00:00:00 SHINGLES VACCINES (1 of 2) [code = SHINGLES VACCINES (1 of 2)] [facility] Future Scheduled Test 2014 00:00:00 SHINGLES VACCINES (1 of 2) [code = SHINGLES VACCINES (1 of 2)] [facility] Future Scheduled Test 2014 00:00:00 SHINGLES VACCINES (1 of 2) [code = SHINGLES VACCINES (1 of 2)] [facility] Future Scheduled Test 2014 00:00:00 SHINGLES VACCINES (1 of 2) [code = SHINGLES VACCINES (1 of 2)] [facility] Future Scheduled Test 2014 00:00:00 SHINGLES VACCINES (1 of 2) [code = SHINGLES VACCINES (1 of 2)] [facility] Future Scheduled Test 2014 00:00:00 SHINGLES VACCINES (1 of 2) [code = SHINGLES VACCINES (1 of 2)] [facility] Future Scheduled Test 2014 00:00:00 SHINGLES VACCINES (1 of 2) [code = SHINGLES VACCINES (1 of 2)] [facility] Future Scheduled Test 2014 00:00:00 SHINGLES VACCINES (1 of 2) [code = SHINGLES VACCINES (1 of 2)] [facility] Future Scheduled Test 2014 00:00:00 SHINGLES VACCINES (1 of 2) [code = SHINGLES VACCINES (1 of 2)] [facility] Future Scheduled Test 2014 00:00:00 SHINGLES VACCINES (1 of 2) [code = SHINGLES VACCINES (1 of 2)] [facility] Future Scheduled Test 2014 00:00:00 SHINGLES VACCINES (1 of 2) [code = SHINGLES VACCINES (1 of 2)] [facility] Future Scheduled Test 2014 00:00:00 SHINGLES VACCINES (1 of 2) [code = SHINGLES VACCINES (1 of 2)] [facility] Future Scheduled Test 2014 00:00:00 SHINGLES VACCINES (1 of 2) [code = SHINGLES VACCINES (1 of 2)] [facility] Future Scheduled Test 2014 00:00:00 SHINGLES VACCINES (1 of 2) [code = SHINGLES VACCINES (1 of 2)] [facility] Future Scheduled Test 2014 00:00:00 SHINGLES VACCINES (1 of 2) [code = SHINGLES VACCINES (1 of 2)] [facility] Future Scheduled Test 2014 00:00:00 SHINGLES VACCINES (1 of 2) [code = SHINGLES VACCINES (1 of 2)] [facility] Future Scheduled Test 2014 00:00:00 SHINGLES VACCINES (1 of 2) [code = SHINGLES VACCINES (1 of 2)] [facility] Future Scheduled Test 2014 00:00:00 SHINGLES VACCINES (1 of 2) [code = SHINGLES VACCINES (1 of 2)] [facility] Future Scheduled Test 1983-11-21 00:00:00 DTAP/TDAP/TD VACCINES (1 - Tdap) [code = DTAP/TDAP/TD VACCINES (1 - Tdap)] [facility] Future Scheduled Test 1983-11-21 00:00:00 DTAP/TDAP/TD VACCINES (1 - Tdap) [code = DTAP/TDAP/TD VACCINES (1 - Tdap)] [facility] Future Scheduled Test 1983-11-21 00:00:00 DTAP/TDAP/TD VACCINES (1 - Tdap) [code = DTAP/TDAP/TD VACCINES (1 - Tdap)] [facility] Future Scheduled Test 1983-11-21 00:00:00 DTAP/TDAP/TD VACCINES (1 - Tdap) [code = DTAP/TDAP/TD VACCINES (1 - Tdap)] [facility] Future Scheduled Test 1983-11-21 00:00:00 DTAP/TDAP/TD VACCINES (1 - Tdap) [code = DTAP/TDAP/TD VACCINES (1 - Tdap)] [facility] Future Scheduled Test 1983-11-21 00:00:00 DTAP/TDAP/TD VACCINES (1 - Tdap) [code = DTAP/TDAP/TD VACCINES (1 - Tdap)] [facility] Future Scheduled Test 1983-11-21 00:00:00 DTAP/TDAP/TD VACCINES (1 - Tdap) [code = DTAP/TDAP/TD VACCINES (1 - Tdap)] [facility] Future Scheduled Test 1983-11-21 00:00:00 DTAP/TDAP/TD VACCINES (1 - Tdap) [code = DTAP/TDAP/TD VACCINES (1 - Tdap)] [facility] Scheduled Test 1983-11-21 00:00:00 DTAP/TDAP/TD VACCINES (1 - Tdap) [code = DTAP/TDAP/TD VACCINES (1 - Tdap)] [facility] Future Scheduled Test 1983-11-21 00:00:00 DTAP/TDAP/TD VACCINES (1 - Tdap) [code = DTAP/TDAP/TD VACCINES (1 - Tdap)] [facility] Scheduled Test 1983-11-21 00:00:00 DTAP/TDAP/TD VACCINES (1 - Tdap) [code = DTAP/TDAP/TD VACCINES (1 - Tdap)] [facility] Scheduled Test 1983-11-21 00:00:00 DTAP/TDAP/TD VACCINES (1 - Tdap) [code = DTAP/TDAP/TD VACCINES (1 - Tdap)] [facility] Scheduled Test 1983-11-21 00:00:00 DTAP/TDAP/TD VACCINES (1 - Tdap) [code = DTAP/TDAP/TD VACCINES (1 - Tdap)] [facility] Scheduled Test 1983-11-21 00:00:00 DTAP/TDAP/TD VACCINES (1 - Tdap) [code = DTAP/TDAP/TD VACCINES (1 - Tdap)] [facility] Scheduled Test 1983-11-21 00:00:00 DTAP/TDAP/TD VACCINES (1 - Tdap) [code = DTAP/TDAP/TD VACCINES (1 - Tdap)] [facility] Scheduled Test 1983-11-21 00:00:00 DTAP/TDAP/TD VACCINES (1 - Tdap) [code = DTAP/TDAP/TD VACCINES (1 - Tdap)] [facility] Future Scheduled Test 1983-11-21 00:00:00 DTAP/TDAP/TD VACCINES (1 - Tdap) [code = DTAP/TDAP/TD VACCINES (1 - Tdap)] [facility] Future Scheduled Test 1983-11-21 00:00:00 DTAP/TDAP/TD VACCINES (1 - Tdap) [code = DTAP/TDAP/TD VACCINES (1 - Tdap)] [facility] Future Scheduled Test 1983-11-21 00:00:00 DTAP/TDAP/TD VACCINES (1 - Tdap) [code = DTAP/TDAP/TD VACCINES (1 - Tdap)] [facility] Future Scheduled Test 1983-11-21 00:00:00 DTAP/TDAP/TD VACCINES (1 - Tdap) [code = DTAP/TDAP/TD VACCINES (1 - Tdap)] [facility] Future Scheduled Test 1983-11-21 00:00:00 DTAP/TDAP/TD VACCINES (1 - Tdap) [code = DTAP/TDAP/TD VACCINES (1 - Tdap)] [facility] Future Scheduled Test 1983-11-21 00:00:00 DTAP/TDAP/TD VACCINES (1 - Tdap) [code = DTAP/TDAP/TD VACCINES (1 - Tdap)] [facility] Future Scheduled Test 1983-11-21 00:00:00 DTAP/TDAP/TD VACCINES (1 - Tdap) [code = DTAP/TDAP/TD VACCINES (1 - Tdap)] [facility] Future Scheduled Test 1983-11-21 00:00:00 DTAP/TDAP/TD VACCINES (1 - Tdap) [code = DTAP/TDAP/TD VACCINES (1 - Tdap)] [facility] Future Scheduled Test 1983-11-21 00:00:00 DTAP/TDAP/TD VACCINES (1 - Tdap) [code = DTAP/TDAP/TD VACCINES (1 - Tdap)] [facility] Scheduled Test 1983-11-21 00:00:00 DTAP/TDAP/TD VACCINES (1 - Tdap) [code = DTAP/TDAP/TD VACCINES (1 - Tdap)] [facility] Future Scheduled Test 1983-11-21 00:00:00 DTAP/TDAP/TD VACCINES (1 - Tdap) [code = DTAP/TDAP/TD VACCINES (1 - Tdap)] [facility] Future Scheduled Test 1983-11-21 00:00:00 DTAP/TDAP/TD VACCINES (1 - Tdap) [code = DTAP/TDAP/TD VACCINES (1 - Tdap)] [facility] Future Scheduled Test 1983-11-21 00:00:00 DTAP/TDAP/TD VACCINES (1 - Tdap) [code = DTAP/TDAP/TD VACCINES (1 - Tdap)] [facility] Future Scheduled Test 1983-11-21 00:00:00 DTAP/TDAP/TD VACCINES (1 - Tdap) [code = DTAP/TDAP/TD VACCINES (1 - Tdap)] [facility] Future Scheduled Test 1983-11-21 00:00:00 DTAP/TDAP/TD VACCINES (1 - Tdap) [code = DTAP/TDAP/TD VACCINES (1 - Tdap)] [facility] Future Scheduled Test 1983-11-21 00:00:00 DTAP/TDAP/TD VACCINES (1 - Tdap) [code = DTAP/TDAP/TD VACCINES (1 - Tdap)] [facility] Future Scheduled Test 1983-11-21 00:00:00 DTAP/TDAP/TD VACCINES (1 - Tdap) [code = DTAP/TDAP/TD VACCINES (1 - Tdap)] [facility] Future Scheduled Test 1982 00:00:00 HEPATITIS C SCREENING [code = HEPATITIS C SCREENING] [facility] Future Scheduled Test 1982 00:00:00 HEPATITIS C SCREENING [code = HEPATITIS C SCREENING] [facility] Future Scheduled Test 1982 00:00:00 HEPATITIS C SCREENING [code = HEPATITIS C SCREENING] [facility] Future Scheduled Test 1982 00:00:00 HEPATITIS C SCREENING [code = HEPATITIS C SCREENING] [facility] Future Scheduled Test 1982 00:00:00 HEPATITIS C SCREENING [code = HEPATITIS C SCREENING] [facility] Future Scheduled Test 1982 00:00:00 HEPATITIS C SCREENING [code = HEPATITIS C SCREENING] [facility] Future Scheduled Test 1982 00:00:00 HEPATITIS C SCREENING [code = HEPATITIS C SCREENING] [facility] Future Scheduled Test 1982 00:00:00 HEPATITIS C SCREENING [code = HEPATITIS C SCREENING] [facility] Future Scheduled Test 1982 00:00:00 HEPATITIS C SCREENING [code = HEPATITIS C SCREENING] [facility] Future Scheduled Test 1982 00:00:00 HEPATITIS C SCREENING [code = HEPATITIS C SCREENING] [facility] Future Scheduled Test 1982 00:00:00 HEPATITIS C SCREENING [code = HEPATITIS C SCREENING] [facility] Future Scheduled Test 1982 00:00:00 HEPATITIS C SCREENING [code = HEPATITIS C SCREENING] [facility] Future Scheduled Test 1982 00:00:00 HEPATITIS C SCREENING [code = HEPATITIS C SCREENING] [facility] Future Scheduled Test 1982 00:00:00 HEPATITIS C SCREENING [code = HEPATITIS C SCREENING] [facility] Future Scheduled Test 1982 00:00:00 HEPATITIS C SCREENING [code = HEPATITIS C SCREENING] [facility] Future Scheduled Test 1982 00:00:00 HEPATITIS C SCREENING [code = HEPATITIS C SCREENING] [facility] Future Scheduled Test 1982 00:00:00 HEPATITIS C SCREENING [code = HEPATITIS C SCREENING] [facility] Future Scheduled Test 1982 00:00:00 HEPATITIS C SCREENING [code = HEPATITIS C SCREENING] [facility] Future Scheduled Test 1982 00:00:00 HEPATITIS C SCREENING [code = HEPATITIS C SCREENING] [facility] Future Scheduled Test 1982 00:00:00 HEPATITIS C SCREENING [code = HEPATITIS C SCREENING] [facility] Future Scheduled Test 1982 00:00:00 HEPATITIS C SCREENING [code = HEPATITIS C SCREENING] [facility] Future Scheduled Test 1982 00:00:00 HEPATITIS C SCREENING [code = HEPATITIS C SCREENING] [facility] Future Scheduled Test 1982 00:00:00 HEPATITIS C SCREENING [code = HEPATITIS C SCREENING] [facility] Future Scheduled Test 1982 00:00:00 HEPATITIS C SCREENING [code = HEPATITIS C SCREENING] [facility] Future Scheduled Test 1982 00:00:00 HEPATITIS C SCREENING [code = HEPATITIS C SCREENING] [facility] Future Scheduled Test 1982 00:00:00 HEPATITIS C SCREENING [code = HEPATITIS C SCREENING] [facility] Future Scheduled Test 1982 00:00:00 HEPATITIS C SCREENING [code = HEPATITIS C SCREENING] [facility] Future Scheduled Test 1982 00:00:00 HEPATITIS C SCREENING [code = HEPATITIS C SCREENING] [facility] Future Scheduled Test 1982 00:00:00 HEPATITIS C SCREENING [code = HEPATITIS C SCREENING] [facility] Future Scheduled Test 1982 00:00:00 HEPATITIS C SCREENING [code = HEPATITIS C SCREENING] [facility] Future Scheduled Test 1982 00:00:00 HEPATITIS C SCREENING [code = HEPATITIS C SCREENING] [facility] Future Scheduled Test 1982 00:00:00 HEPATITIS C SCREENING [code = HEPATITIS C SCREENING] [facility] Future Scheduled Test 1982 00:00:00 HEPATITIS C SCREENING [code = HEPATITIS C SCREENING] [facility] Future Scheduled Test 1979-11-21 00:00:00 Human immunodeficiency virus screening (procedure) [code = [id number]] [facility] Future Scheduled Test 1979-11-21 00:00:00 Human immunodeficiency virus screening (procedure) [code = [id number]] [facility] Future Scheduled Test 1979-11-21 00:00:00 Human immunodeficiency virus screening (procedure) [code = [id number]] [facility] Future Scheduled Test 1979-11-21 00:00:00 Human immunodeficiency virus screening (procedure) [code = [id number]] [facility] Future Scheduled Test 1979-11-21 00:00:00 Human immunodeficiency virus screening (procedure) [code = [id number]] [facility] Future Scheduled Test 1979-11-21 00:00:00 Human immunodeficiency virus screening (procedure) [code = [id number]] [facility] Future Scheduled Test 1979-11-21 00:00:00 Human immunodeficiency virus screening (procedure) [code = [id number]] [facility] Future Scheduled Test 1979-11-21 00:00:00 Human immunodeficiency virus screening (procedure) [code = [id number]] [facility] Future Scheduled Test 1979-11-21 00:00:00 Human immunodeficiency virus screening (procedure) [code = [id number]] [facility] Future Scheduled Test 1979-11-21 00:00:00 Human immunodeficiency virus screening (procedure) [code = 031896094] [facility] Future Scheduled Test 1979-11-21 00:00:00 Human immunodeficiency virus screening (procedure) [code = 408867940] [facility] Future Scheduled Test 1979-11-21 00:00:00 Human immunodeficiency virus screening (procedure) [code = 445912275] [facility] Future Scheduled Test 1979-11-21 00:00:00 Human immunodeficiency virus screening (procedure) [code = 166693466] [facility] Future Scheduled Test 1979-11-21 00:00:00 Human immunodeficiency virus screening (procedure) [code = 111809336] [facility] Future Scheduled Test 1979-11-21 00:00:00 Human immunodeficiency virus screening (procedure) [code = 823050784] [facility] Future Scheduled Test 1979-11-21 00:00:00 Human immunodeficiency virus screening (procedure) [code = 882452506] [facility] Future Scheduled Test 1979-11-21 00:00:00 Human immunodeficiency virus screening (procedure) [code = 917552943] [facility] Future Scheduled Test 1979-11-21 00:00:00 Human immunodeficiency virus screening (procedure) [code = 633827788] [facility] Future Scheduled Test 1979-11-21 00:00:00 Human immunodeficiency virus screening (procedure) [code = 657737692] [facility] Future Scheduled Test 1979-11-21 00:00:00 Human immunodeficiency virus screening (procedure) [code = 682965207] [facility] Future Scheduled Test 1979-11-21 00:00:00 Human immunodeficiency virus screening (procedure) [code = 415389009] [facility] Future Scheduled Test 1979-11-21 00:00:00 Human immunodeficiency virus screening (procedure) [code = 827808815] [facility] Future Scheduled Test 1979-11-21 00:00:00 Human immunodeficiency virus screening (procedure) [code = 135428100] [facility] Future Scheduled Test 1979-11-21 00:00:00 Human immunodeficiency virus screening (procedure) [code = 057972922] [facility] Future Scheduled Test 1979-11-21 00:00:00 Human immunodeficiency virus screening (procedure) [code = 535862851] [facility] Future Scheduled Test 1976 00:00:00 Tobacco Cessation Counseling and Screening (12+) [code = Tobacco Cessation Counseling and Screening (12+)] [facility] Scheduled Test 1976 00:00:00 Tobacco Cessation Counseling and Screening (12+) [code = Tobacco Cessation Counseling and Screening (12+)] [facility] Scheduled Test 1976 00:00:00 Tobacco Cessation Counseling and Screening (12+) [code = Tobacco Cessation Counseling and Screening (12+)] [facility] Scheduled Test 1976 00:00:00 Tobacco Cessation Counseling and Screening (12+) [code = Tobacco Cessation Counseling and Screening (12+)] [facility] Scheduled Test 1976 00:00:00 Tobacco Cessation Counseling and Screening (12+) [code = Tobacco Cessation Counseling and Screening (12+)] [facility] Scheduled Test 1976 00:00:00 Tobacco Cessation Counseling and Screening (12+) [code = Tobacco Cessation Counseling and Screening (12+)] [facility] Future Scheduled Test 1976 00:00:00 Tobacco Cessation Counseling and Screening (12+) [code = Tobacco Cessation Counseling and Screening (12+)] [facility] Future Scheduled Test 1976 00:00:00 Tobacco Cessation Counseling and Screening (12+) [code = Tobacco Cessation Counseling and Screening (12+)] [facility] Scheduled Test 1970 00:00:00 Pneumococcal Vaccine: 0-64 Years (1 - PCV) [code = Pneumococcal Vaccine: 0-64 Years (1 - PCV)] [facility] Future Scheduled Test 1970 00:00:00 Pneumococcal Vaccine: 0-64 Years (1 - PCV) [code = Pneumococcal Vaccine: 0-64 Years (1 - PCV)] [facility] Future Scheduled Test 1970 00:00:00 Pneumococcal Vaccine: 0-64 Years (1 - PCV) [code = Pneumococcal Vaccine: 0-64 Years (1 - PCV)] [facility] Future Scheduled Test 1970 00:00:00 Pneumococcal Vaccine: 0-64 Years (1 - PCV) [code = Pneumococcal Vaccine: 0-64 Years (1 - PCV)] [facility] Future Scheduled Test 1970 00:00:00 Pneumococcal Vaccine: 0-64 Years (1 - PCV) [code = Pneumococcal Vaccine: 0-64 Years (1 - PCV)] [facility] Future Scheduled Test 1970 00:00:00 Pneumococcal Vaccine: 0-64 Years (1 - PCV) [code = Pneumococcal Vaccine: 0-64 Years (1 - PCV)] [facility] Future Scheduled Test 1970 00:00:00 PNEUMOCOCCAL VACCINE 0-64 YRS (1 - PCV) [code = PNEUMOCOCCAL VACCINE 0-64 YRS (1 - PCV)] [facility] Future Scheduled Test 1970 00:00:00 Pneumococcal Vaccine: 0-64 Years (1 of 2 - PCV) [code = Pneumococcal Vaccine: 0-64 Years (1 of 2 - PCV)] [facility] Future Scheduled Test 1970 00:00:00 Pneumococcal Vaccine: 0-64 Years (1 of 2 - PCV) [code = Pneumococcal Vaccine: 0-64 Years (1 of 2 - PCV)] [facility] Future Scheduled Test 1970 00:00:00 PNEUMOCOCCAL VACCINE 0-64 YRS (1 - PCV) [code = PNEUMOCOCCAL VACCINE 0-64 YRS (1 - PCV)] [facility] Future Scheduled Test 1970 00:00:00 PNEUMOCOCCAL VACCINE 0-64 YRS (1 - PCV) [code = PNEUMOCOCCAL VACCINE 0-64 YRS (1 - PCV)] [facility] Future Scheduled Test 1970 00:00:00 PNEUMOCOCCAL VACCINE 0-64 YRS (1 - PCV) [code = PNEUMOCOCCAL VACCINE 0-64 YRS (1 - PCV)] [facility] Future Scheduled Test 1970 00:00:00 PNEUMOCOCCAL VACCINE 0-64 YRS (1 - PCV) [code = PNEUMOCOCCAL VACCINE 0-64 YRS (1 - PCV)] [facility] Future Scheduled Test 1970 00:00:00 PNEUMOCOCCAL VACCINE 0-64 YRS (1 - PCV) [code = PNEUMOCOCCAL VACCINE 0-64 YRS (1 - PCV)] [facility] Future Scheduled Test 1970 00:00:00 PNEUMOCOCCAL VACCINE 0-64 YRS (1 - PCV) [code = PNEUMOCOCCAL VACCINE 0-64 YRS (1 - PCV)] [facility] Future Scheduled Test 1970 00:00:00 PNEUMOCOCCAL VACCINE 0-64 YRS (1 - PCV) [code = PNEUMOCOCCAL VACCINE 0-64 YRS (1 - PCV)] [facility] Future Scheduled Test 1970 00:00:00 Pneumococcal Vaccine: 0-64 Years (1 - PCV) [code = Pneumococcal Vaccine: 0-64 Years (1 - PCV)] [facility] Future Scheduled Test 1970 00:00:00 Pneumococcal Vaccine: 0-64 Years (1 - PCV) [code = Pneumococcal Vaccine: 0-64 Years (1 - PCV)] [facility] Future Scheduled Test 1970 00:00:00 Pneumococcal Vaccine: 0-64 Years (1 - PCV) [code = Pneumococcal Vaccine: 0-64 Years (1 - PCV)] [facility] Future Scheduled Test 1970 00:00:00 Pneumococcal Vaccine: 0-64 Years (1 - PCV) [code = Pneumococcal Vaccine: 0-64 Years (1 - PCV)] [facility] Future Scheduled Test 1970 00:00:00 Pneumococcal Vaccine: 0-64 Years (1 - PCV) [code = Pneumococcal Vaccine: 0-64 Years (1 - PCV)] [facility] Future Scheduled Test 1970 00:00:00 Pneumococcal Vaccine: 0-64 Years (1 - PCV) [code = Pneumococcal Vaccine: 0-64 Years (1 - PCV)] [facility] Future Scheduled Test 1970 00:00:00 Pneumococcal Vaccine: 0-64 Years (1 - PCV) [code = Pneumococcal Vaccine: 0-64 Years (1 - PCV)] [facility] Future Scheduled Test 1970 00:00:00 Pneumococcal Vaccine: 0-64 Years (1 - PCV) [code = Pneumococcal Vaccine: 0-64 Years (1 - PCV)] [facility] Future Scheduled Test 1970 00:00:00 Pneumococcal Vaccine: 0-64 Years (1 - PCV) [code = Pneumococcal Vaccine: 0-64 Years (1 - PCV)] [facility] Future Scheduled Test 1970 00:00:00 Pneumococcal Vaccine: 0-64 Years (1 - PCV) [code = Pneumococcal Vaccine: 0-64 Years (1 - PCV)] [facility] Future Scheduled Test 1970 00:00:00 Pneumococcal Vaccine: 0-64 Years (1 - PCV) [code = Pneumococcal Vaccine: 0-64 Years (1 - PCV)] [facility] Future Scheduled Test 1970 00:00:00 Pneumococcal Vaccine: 0-64 Years (1 - PCV) [code = Pneumococcal Vaccine: 0-64 Years (1 - PCV)] [facility] Future Scheduled Test 1970 00:00:00 Pneumococcal Vaccine: 0-64 Years (1 - PCV) [code = Pneumococcal Vaccine: 0-64 Years (1 - PCV)] [facility] Future Scheduled Test 1970 00:00:00 Pneumococcal Vaccine: 0-64 Years (1 - PCV) [code = Pneumococcal Vaccine: 0-64 Years (1 - PCV)] [facility] Future Scheduled Test 1970 00:00:00 Pneumococcal Vaccine: 0-64 Years (1 - PCV) [code = Pneumococcal Vaccine: 0-64 Years (1 - PCV)] [facility] Future Scheduled Test 1970 00:00:00 Pneumococcal Vaccine: 0-64 Years (1 - PCV) [code = Pneumococcal Vaccine: 0-64 Years (1 - PCV)] [facility] Future Scheduled Test 1970 00:00:00 Pneumococcal Vaccine: 0-64 Years (1 - PCV) [code = Pneumococcal Vaccine: 0-64 Years (1 - PCV)] [facility] Future Scheduled Test 1965-05-22 00:00:00 COVID-19 VACCINE (#1) [code = COVID-19 VACCINE (#1)] [facility] Future Scheduled Test 1965-05-22 00:00:00 COVID-19 VACCINE (#1) [code = COVID-19 VACCINE (#1)] [facility] Future Scheduled Test 1965-05-22 00:00:00 COVID-19 VACCINE (#1) [code = COVID-19 VACCINE (#1)] [facility] Future Scheduled Test 1965-05-22 00:00:00 COVID-19 VACCINE (#1) [code = COVID-19 VACCINE (#1)] [facility] Future Scheduled Test 1965-05-22 00:00:00 COVID-19 VACCINE (#1) [code = COVID-19 VACCINE (#1)] [facility] Future Scheduled Test 1965-05-22 00:00:00 COVID-19 VACCINE (#1) [code = COVID-19 VACCINE (#1)] [facility] Future Scheduled Test 1965-05-22 00:00:00 COVID-19 VACCINE (#1) [code = COVID-19 VACCINE (#1)] [facility] Future Scheduled Test 1965-05-22 00:00:00 COVID-19 VACCINE (#1) [code = COVID-19 VACCINE (#1)] [facility] Future Scheduled Test 1965-05-22 00:00:00 COVID-19 VACCINE (#1) [code = COVID-19 VACCINE (#1)] [facility] Future Scheduled Test 1965-05-22 00:00:00 COVID-19 VACCINE (#1) [code = COVID-19 VACCINE (#1)] [facility] Future Scheduled Test 1965-05-22 00:00:00 COVID-19 VACCINE (#1) [code = COVID-19 VACCINE (#1)] [facility] Future Scheduled Test 1965-05-22 00:00:00 COVID-19 VACCINE (#1) [code = COVID-19 VACCINE (#1)] [facility] Future Scheduled Test 1965-05-22 00:00:00 COVID-19 VACCINE (#1) [code = COVID-19 VACCINE (#1)] [facility] Future Scheduled Test 1965-05-22 00:00:00 COVID-19 VACCINE (#1) [code = COVID-19 VACCINE (#1)] [facility] Future Scheduled Test 1965-05-22 00:00:00 COVID-19 VACCINE (#1) [code = COVID-19 VACCINE (#1)] [facility] Future Scheduled Test 1965-05-22 00:00:00 COVID-19 VACCINE (#1) [code = COVID-19 VACCINE (#1)] [facility] Future Scheduled Test 1965-05-22 00:00:00 COVID-19 VACCINE (#1) [code = COVID-19 VACCINE (#1)] [facility] Future Scheduled Test 1965-05-22 00:00:00 COVID-19 VACCINE (#1) [code = COVID-19 VACCINE (#1)] [facility] Future Scheduled Test 1965-05-22 00:00:00 COVID-19 VACCINE (#1) [code = COVID-19 VACCINE (#1)] [facility] Future Scheduled Test 1965-05-22 00:00:00 COVID-19 VACCINE (#1) [code = COVID-19 VACCINE (#1)] [facility] Future Scheduled Test 1965-05-22 00:00:00 COVID-19 VACCINE (#1) [code = COVID-19 VACCINE (#1)] [facility] Future Scheduled Test 1965-05-22 00:00:00 COVID-19 VACCINE (#1) [code = COVID-19 VACCINE (#1)] [facility] Future Scheduled Test 1965-05-22 00:00:00 COVID-19 VACCINE (#1) [code = COVID-19 VACCINE (#1)] [facility] Future Scheduled Test 1965-05-22 00:00:00 COVID-19 VACCINE (#1) [code = COVID-19 VACCINE (#1)] [facility] Future Scheduled Test 1965-05-22 00:00:00 COVID-19 VACCINE (#1) [code = COVID-19 VACCINE (#1)] [facility] Future Scheduled Test 1965-05-22 00:00:00 COVID-19 VACCINE (#1) [code = COVID-19 VACCINE (#1)] [facility] Future Scheduled Test 1965-05-22 00:00:00 COVID-19 VACCINE (#1) [code = COVID-19 VACCINE (#1)] [facility] Future Scheduled Test 1965-05-22 00:00:00 COVID-19 VACCINE (#1) [code = COVID-19 VACCINE (#1)] [facility] Future Scheduled Test 1965-05-22 00:00:00 COVID-19 VACCINE (#1) [code = COVID-19 VACCINE (#1)] [facility] Future Scheduled Test 1965-05-22 00:00:00 COVID-19 VACCINE (#1) [code = COVID-19 VACCINE (#1)] [facility] Future Scheduled Test 1965-05-22 00:00:00 COVID-19 VACCINE (#1) [code = COVID-19 VACCINE (#1)] [facility] Future Scheduled Test 1965-05-22 00:00:00 COVID-19 VACCINE (#1) [code = COVID-19 VACCINE (#1)] [facility] Future Scheduled Test 1965-05-22 00:00:00 COVID-19 VACCINE (#1) [code = COVID-19 VACCINE (#1)] [facility] Future Scheduled Test 1964 00:00:00 CT Colonography (combo) [code = CT Colonography (combo)] [facility] Future Scheduled Test 1964 00:00:00 Screening for malignant neoplasm of colon (procedure) [code = 542326907] [facility] Future Scheduled Test 1964 00:00:00 Screening for malignant neoplasm of colon (procedure) [code = 907534883] [facility] Future Scheduled Test 1964 00:00:00 Screening for malignant neoplasm of colon (procedure) [code = 292719344] [facility] Future Scheduled Test 1964 00:00:00 Screening for malignant neoplasm of colon (procedure) [code = 102619305] [facility] Future Scheduled Test 1964 00:00:00 Sigmoidoscopy [code = Sigmoidoscopy] [facility] Future Scheduled Test 1964 00:00:00 CT Colonography (combo) [code = CT Colonography (combo)] [facility] Future Scheduled Test 1964 00:00:00 Screening for malignant neoplasm of colon (procedure) [code = 065654564] [facility] Future Scheduled Test 1964 00:00:00 Screening for malignant neoplasm of colon (procedure) [code = 552118357] [facility] Future Scheduled Test 1964 00:00:00 Screening for malignant neoplasm of colon (procedure) [code = 652221057] [facility] Future Scheduled Test 1964 00:00:00 Screening for malignant neoplasm of colon (procedure) [code = 291684118] [facility] Future Scheduled Test 1964 00:00:00 Sigmoidoscopy [code = Sigmoidoscopy] [facility] Future Scheduled Test 1964 00:00:00 CT Colonography (combo) [code = CT Colonography (combo)] [facility] Future Scheduled Test 1964 00:00:00 Screening for malignant neoplasm of colon (procedure) [code = 009339381] [facility] Future Scheduled Test 1964 00:00:00 Screening for malignant neoplasm of colon (procedure) [code = 744986726] [facility] Future Scheduled Test 1964 00:00:00 Screening for malignant neoplasm of colon (procedure) [code = 959194784] [facility] Future Scheduled Test 1964 00:00:00 Screening for malignant neoplasm of colon (procedure) [code = 589609702] [facility] Future Scheduled Test 1964 00:00:00 Sigmoidoscopy [code = Sigmoidoscopy] [facility] Future Scheduled Test 1964 00:00:00 CT Colonography (combo) [code = CT Colonography (combo)] [facility] Future Scheduled Test 1964 00:00:00 Screening for malignant neoplasm of colon (procedure) [code = 510937627] [facility] Future Scheduled Test 1964 00:00:00 Screening for malignant neoplasm of colon (procedure) [code = 665589824] [facility] Future Scheduled Test 1964 00:00:00 Screening for malignant neoplasm of colon (procedure) [code = 751685175] [facility] Future Scheduled Test 1964 00:00:00 Screening for malignant neoplasm of colon (procedure) [code = 671159303] [facility] Future Scheduled Test 1964 00:00:00 Sigmoidoscopy [code = Sigmoidoscopy] [facility] Future Scheduled Test 1964 00:00:00 CT Colonography (combo) [code = CT Colonography (combo)] [facility] Future Scheduled Test 1964 00:00:00 Screening for malignant neoplasm of colon (procedure) [code = 909706624] [facility] Future Scheduled Test 1964 00:00:00 CT Colonography (combo) [code = CT Colonography (combo)] [facility] Future Scheduled Test 1964 00:00:00 Screening for malignant neoplasm of colon (procedure) [code = 414448070] [facility] Future Scheduled Test 1964 00:00:00 Screening for malignant neoplasm of colon (procedure) [code = 965333501] [facility] Future Scheduled Test 1964 00:00:00 Screening for malignant neoplasm of colon (procedure) [code = 914033948] [facility] Future Scheduled Test 1964 00:00:00 Screening for malignant neoplasm of colon (procedure) [code = 388585446] [facility] Future Scheduled Test 1964 00:00:00 Screening for malignant neoplasm of colon (procedure) [code = 910612176] [facility] Future Scheduled Test 1964 00:00:00 Sigmoidoscopy [code = Sigmoidoscopy] [facility] Future Scheduled Test 1964 00:00:00 Screening for malignant neoplasm of colon (procedure) [code = 540199327] [facility] Future Scheduled Test 1964 00:00:00 Screening for malignant neoplasm of colon (procedure) [code = 061745102] [facility] Future Scheduled Test 1964 00:00:00 CT Colonography (combo) [code = CT Colonography (combo)] [facility] Future Scheduled Test 1964 00:00:00 Screening for malignant neoplasm of colon (procedure) [code = 768035261] [facility] Future Scheduled Test 1964 00:00:00 Screening for malignant neoplasm of colon (procedure) [code = 696966633] [facility] Future Scheduled Test 1964 00:00:00 Sigmoidoscopy [code = Sigmoidoscopy] [facility] Future Scheduled Test 1964 00:00:00 Screening for malignant neoplasm of colon (procedure) [code = 589841905] [facility] Future Scheduled Test 1964 00:00:00 Screening for malignant neoplasm of colon (procedure) [code = 480842070] [facility] Future Scheduled Test 1964 00:00:00 Sigmoidoscopy [code = Sigmoidoscopy] [facility] Future Scheduled Test 1964 00:00:00 CT Colonography (combo) [code = CT Colonography (combo)] [facility] Future Scheduled Test 1964 00:00:00 Screening for malignant neoplasm of colon (procedure) [code = 744573039] [facility] Future Scheduled Test 1964 00:00:00 Screening for malignant neoplasm of colon (procedure) [code = 183958271] [facility] Future Scheduled Test 1964 00:00:00 Screening for malignant neoplasm of colon (procedure) [code = 305988154] [facility] Future Scheduled Test 1964 00:00:00 Screening for malignant neoplasm of colon (procedure) [code = 226550959] [facility] Future Scheduled Test 1964 00:00:00 Sigmoidoscopy [code = Sigmoidoscopy] [facility] Future Scheduled Test 1964 00:00:00 CT Colonography (combo) [code = CT Colonography (combo)] [facility] Future Scheduled Test 1964 00:00:00 Screening for malignant neoplasm of colon (procedure) [code = 547922804] [facility] Future Scheduled Test 1964 00:00:00 Screening for malignant neoplasm of colon (procedure) [code = 461790963] [facility] Future Scheduled Test 1964 00:00:00 Screening for malignant neoplasm of colon (procedure) [code = 987839175] [facility] Future Scheduled Test 1964 00:00:00 Screening for malignant neoplasm of colon (procedure) [code = 196519893] [facility] Future Scheduled Test 1964 00:00:00 Sigmoidoscopy [code = Sigmoidoscopy] [facility] Future Scheduled Test 1964 00:00:00 CT Colonography (combo) [code = CT Colonography (combo)] [facility] Future Scheduled Test 1964 00:00:00 Screening for malignant neoplasm of colon (procedure) [code = 245069349] [facility] Future Scheduled Test 1964 00:00:00 Screening for malignant neoplasm of colon (procedure) [code = 796679888] [facility] Future Scheduled Test 1964 00:00:00 Screening for malignant neoplasm of colon (procedure) [code = 798454674] [facility] Future Scheduled Test 1964 00:00:00 Screening for malignant neoplasm of colon (procedure) [code = 173640719] [facility] Future Scheduled Test 1964 00:00:00 Sigmoidoscopy [code = Sigmoidoscopy] [facility] Future Scheduled Test 1964 00:00:00 CT Colonography (combo) [code = CT Colonography (combo)] [facility] Future Scheduled Test 1964 00:00:00 Screening for malignant neoplasm of colon (procedure) [code = 293386556] [facility] Future Scheduled Test 1964 00:00:00 Screening for malignant neoplasm of colon (procedure) [code = 798076741] [facility] Future Scheduled Test 1964 00:00:00 Screening for malignant neoplasm of colon (procedure) [code = 801264008] [facility] Future Scheduled Test 1964 00:00:00 Screening for malignant neoplasm of colon (procedure) [code = 819147241] [facility] Future Scheduled Test 1964 00:00:00 Sigmoidoscopy [code = Sigmoidoscopy] [facility] Future Scheduled Test 1964 00:00:00 CT Colonography (combo) [code = CT Colonography (combo)] [facility] Future Scheduled Test 1964 00:00:00 Screening for malignant neoplasm of colon (procedure) [code = [id number]] [facility] Future Scheduled Test 1964 00:00:00 Screening for malignant neoplasm of colon (procedure) [code = 178027671] [facility] Future Scheduled Test 1964 00:00:00 Screening for malignant neoplasm of colon (procedure) [code = 124687531] [facility] Future Scheduled Test 1964 00:00:00 Screening for malignant neoplasm of colon (procedure) [code = 430908726] [facility] Future Scheduled Test 1964 00:00:00 Sigmoidoscopy [code = Sigmoidoscopy] [facility] Future Scheduled Test 1964 00:00:00 CT Colonography (combo) [code = CT Colonography (combo)] [facility] Future Scheduled Test 1964 00:00:00 Screening for malignant neoplasm of colon (procedure) [code = 095431136] [facility] Future Scheduled Test 1964 00:00:00 Screening for malignant neoplasm of colon (procedure) [code = 439284071] [facility] Future Scheduled Test 1964 00:00:00 Screening for malignant neoplasm of colon (procedure) [code = 556229594] [facility] Future Scheduled Test 1964 00:00:00 Screening for malignant neoplasm of colon (procedure) [code = 466397929] [facility] Future Scheduled Test 1964 00:00:00 Sigmoidoscopy [code = Sigmoidoscopy] [facility] Future Scheduled Test 1964 00:00:00 CT Colonography (combo) [code = CT Colonography (combo)] [facility] Future Scheduled Test 1964 00:00:00 Screening for malignant neoplasm of colon (procedure) [code = 077520351] [facility] Future Scheduled Test 1964 00:00:00 Screening for malignant neoplasm of colon (procedure) [code = 880852095] [facility] Future Scheduled Test 1964 00:00:00 Screening for malignant neoplasm of colon (procedure) [code = 589222862] [facility] Future Scheduled Test 1964 00:00:00 Screening for malignant neoplasm of colon (procedure) [code = 879440133] [facility] Future Scheduled Test 1964 00:00:00 Sigmoidoscopy [code = Sigmoidoscopy] [facility] Future Scheduled Test 1964 00:00:00 CT Colonography (combo) [code = CT Colonography (combo)] [facility] Future Scheduled Test 1964 00:00:00 Screening for malignant neoplasm of colon (procedure) [code = 594363659] [facility] Future Scheduled Test 1964 00:00:00 Screening for malignant neoplasm of colon (procedure) [code = 789955054] [facility] Future Scheduled Test 1964 00:00:00 Screening for malignant neoplasm of colon (procedure) [code = 628851883] [facility] Future Scheduled Test 1964 00:00:00 Screening for malignant neoplasm of colon (procedure) [code = 545720437] [facility] Future Scheduled Test 1964 00:00:00 Sigmoidoscopy [code = Sigmoidoscopy] [facility] Future Scheduled Test 1964 00:00:00 CT Colonography (combo) [code = CT Colonography (combo)] [facility] Future Scheduled Test 1964 00:00:00 Screening for malignant neoplasm of colon (procedure) [code = 612512344] [facility] Future Scheduled Test 1964 00:00:00 Screening for malignant neoplasm of colon (procedure) [code = 482282071] [facility] Future Scheduled Test 1964 00:00:00 Screening for malignant neoplasm of colon (procedure) [code = 693443837] [facility] Future Scheduled Test 1964 00:00:00 Screening for malignant neoplasm of colon (procedure) [code = 856818058] [facility] Future Scheduled Test 1964 00:00:00 Sigmoidoscopy [code = Sigmoidoscopy] [facility] Future Scheduled Test 1964 00:00:00 CT Colonography (combo) [code = CT Colonography (combo)] [facility] Future Scheduled Test 1964 00:00:00 Screening for malignant neoplasm of colon (procedure) [code = 833670835] [facility] Future Scheduled Test 1964 00:00:00 Screening for malignant neoplasm of colon (procedure) [code = 122058240] [facility] Future Scheduled Test 1964 00:00:00 Screening for malignant neoplasm of colon (procedure) [code = 879197506] [facility] Future Scheduled Test 1964 00:00:00 Screening for malignant neoplasm of colon (procedure) [code = 815448959] [facility] Future Scheduled Test 1964 00:00:00 Sigmoidoscopy [code = Sigmoidoscopy] [facility] Future Scheduled Test 1964 00:00:00 CT Colonography (combo) [code = CT Colonography (combo)] [facility] Future Scheduled Test 1964 00:00:00 Screening for malignant neoplasm of colon (procedure) [code = 206920868] [facility] Future Scheduled Test 1964 00:00:00 Screening for malignant neoplasm of colon (procedure) [code = 841317520] [facility] Future Scheduled Test 1964 00:00:00 Screening for malignant neoplasm of colon (procedure) [code = 202561832] [facility] Future Scheduled Test 1964 00:00:00 Screening for malignant neoplasm of colon (procedure) [code = 488581416] [facility] Future Scheduled Test 1964 00:00:00 Sigmoidoscopy [code = Sigmoidoscopy] [facility] Future Scheduled Test 1964 00:00:00 CT Colonography (combo) [code = CT Colonography (combo)] [facility] Future Scheduled Test 1964 00:00:00 Screening for malignant neoplasm of colon (procedure) [code = 370464360] [facility] Future Scheduled Test 1964 00:00:00 Screening for malignant neoplasm of colon (procedure) [code = 638758155] [facility] Future Scheduled Test 1964 00:00:00 Screening for malignant neoplasm of colon (procedure) [code = 048980803] [facility] Future Scheduled Test 1964 00:00:00 Screening for malignant neoplasm of colon (procedure) [code = 806533624] [facility] Future Scheduled Test 1964 00:00:00 Sigmoidoscopy [code = Sigmoidoscopy] [facility] Future Scheduled Test 1964 00:00:00 CT Colonography (combo) [code = CT Colonography (combo)] [facility] Future Scheduled Test 1964 00:00:00 Screening for malignant neoplasm of colon (procedure) [code = 448752576] [facility] Future Scheduled Test 1964 00:00:00 Screening for malignant neoplasm of colon (procedure) [code = 354016321] [facility] Future Scheduled Test 1964 00:00:00 Screening for malignant neoplasm of colon (procedure) [code = 215785606] [facility] Future Scheduled Test 1964 00:00:00 Screening for malignant neoplasm of colon (procedure) [code = 039936846] [facility] Future Scheduled Test 1964 00:00:00 Sigmoidoscopy [code = Sigmoidoscopy] [facility] Future Scheduled Test 1964 00:00:00 CT Colonography (combo) [code = CT Colonography (combo)] [facility] Future Scheduled Test 1964 00:00:00 Screening for malignant neoplasm of colon (procedure) [code = 598289708] [facility] Future Scheduled Test 1964 00:00:00 Screening for malignant neoplasm of colon (procedure) [code = 053902473] [facility] Future Scheduled Test 1964 00:00:00 Screening for malignant neoplasm of colon (procedure) [code = 814755762] [facility] Future Scheduled Test 1964 00:00:00 Screening for malignant neoplasm of colon (procedure) [code = 214484105] [facility] Future Scheduled Test 1964 00:00:00 Sigmoidoscopy [code = Sigmoidoscopy] [facility] Future Scheduled Test 1964 00:00:00 CT Colonography (combo) [code = CT Colonography (combo)] [facility] Future Scheduled Test 1964 00:00:00 Screening for malignant neoplasm of colon (procedure) [code = 034698134] [facility] Future Scheduled Test 1964 00:00:00 Screening for malignant neoplasm of colon (procedure) [code = 166910732] [facility] Future Scheduled Test 1964 00:00:00 Screening for malignant neoplasm of colon (procedure) [code = 484588841] [facility] Future Scheduled Test 1964 00:00:00 Screening for malignant neoplasm of colon (procedure) [code = 614237495] [facility] Future Scheduled Test 1964 00:00:00 Sigmoidoscopy [code = Sigmoidoscopy] [facility] Future Scheduled Test 1964 00:00:00 CT Colonography (combo) [code = CT Colonography (combo)] [facility] Future Scheduled Test 1964 00:00:00 Screening for malignant neoplasm of colon (procedure) [code = 645525557] [facility] Future Scheduled Test 1964 00:00:00 Screening for malignant neoplasm of colon (procedure) [code = 435751330] [facility] Future Scheduled Test 1964 00:00:00 Screening for malignant neoplasm of colon (procedure) [code = 716436119] [facility] Future Scheduled Test 1964 00:00:00 Screening for malignant neoplasm of colon (procedure) [code = 931931576] [facility] Future Scheduled Test 1964 00:00:00 Sigmoidoscopy [code = Sigmoidoscopy] [facility] Future Scheduled Test 1964 00:00:00 CT Colonography (combo) [code = CT Colonography (combo)] [facility] Future Scheduled Test 1964 00:00:00 Screening for malignant neoplasm of colon (procedure) [code = 749400579] [facility] Future Scheduled Test 1964 00:00:00 Screening for malignant neoplasm of colon (procedure) [code = 910852014] [facility] Future Scheduled Test 1964 00:00:00 Screening for malignant neoplasm of colon (procedure) [code = 338818886] [facility] Future Scheduled Test 1964 00:00:00 Screening for malignant neoplasm of colon (procedure) [code = 590354091] [facility] Future Scheduled Test 1964 00:00:00 Sigmoidoscopy [code = Sigmoidoscopy] [facility] Future Scheduled Test 1964 00:00:00 CT Colonography (combo) [code = CT Colonography (combo)] [facility] Future Scheduled Test 1964 00:00:00 Screening for malignant neoplasm of colon (procedure) [code = 645368880] [facility] Future Scheduled Test 1964 00:00:00 Screening for malignant neoplasm of colon (procedure) [code = 790286160] [facility] Future Scheduled Test 1964 00:00:00 Screening for malignant neoplasm of colon (procedure) [code = 255239335] [facility] Future Scheduled Test 1964 00:00:00 Screening for malignant neoplasm of colon (procedure) [code = 438498330] [facility] Future Scheduled Test 1964 00:00:00 Sigmoidoscopy [code = Sigmoidoscopy] [facility] Future Scheduled Test 1964 00:00:00 CT Colonography (combo) [code = CT Colonography (combo)] [facility] Future Scheduled Test 1964 00:00:00 Screening for malignant neoplasm of colon (procedure) [code = 964039384] [facility] Future Scheduled Test 1964 00:00:00 Screening for malignant neoplasm of colon (procedure) [code = 417588249] [facility] Future Scheduled Test 1964 00:00:00 Screening for malignant neoplasm of colon (procedure) [code = 486980500] [facility] Future Scheduled Test 1964 00:00:00 Screening for malignant neoplasm of colon (procedure) [code = 721862177] [facility] Future Scheduled Test 1964 00:00:00 Sigmoidoscopy [code = Sigmoidoscopy] [facility] Future Scheduled Test 1964 00:00:00 CT Colonography (combo) [code = CT Colonography (combo)] [facility] Future Scheduled Test 1964 00:00:00 Screening for malignant neoplasm of colon (procedure) [code = 232414785] [facility] Future Scheduled Test 1964 00:00:00 Screening for malignant neoplasm of colon (procedure) [code = 274224379] [facility] Future Scheduled Test 1964 00:00:00 Screening for malignant neoplasm of colon (procedure) [code = 763645488] [facility] Future Scheduled Test 1964 00:00:00 Screening for malignant neoplasm of colon (procedure) [code = 857546480] [facility] Future Scheduled Test 1964 00:00:00 Sigmoidoscopy [code = Sigmoidoscopy] [facility] Future Scheduled Test 1964 00:00:00 CT Colonography (combo) [code = CT Colonography (combo)] [facility] Future Scheduled Test 1964 00:00:00 Screening for malignant neoplasm of colon (procedure) [code = 413249244] [facility] Future Scheduled Test 1964 00:00:00 Screening for malignant neoplasm of colon (procedure) [code = 202916972] [facility] Future Scheduled Test 1964 00:00:00 Screening for malignant neoplasm of colon (procedure) [code = 171898378] [facility] Future Scheduled Test 1964 00:00:00 Screening for malignant neoplasm of colon (procedure) [code = 038804011] [facility] Future Scheduled Test 1964 00:00:00 Sigmoidoscopy [code = Sigmoidoscopy] [facility] Future Scheduled Test 1964 00:00:00 CT Colonography (combo) [code = CT Colonography (combo)] [facility] Future Scheduled Test 1964 00:00:00 Screening for malignant neoplasm of colon (procedure) [code = 085065718] [facility] Future Scheduled Test 1964 00:00:00 Screening for malignant neoplasm of colon (procedure) [code = 706803134] [facility] Future Scheduled Test 1964 00:00:00 Screening for malignant neoplasm of colon (procedure) [code = 626315842] [facility] Future Scheduled Test 1964 00:00:00 Screening for malignant neoplasm of colon (procedure) [code = 888137759] [facility] Future Scheduled Test 1964 00:00:00 Sigmoidoscopy [code = Sigmoidoscopy] [facility] Future Scheduled Test 1964 00:00:00 CT Colonography (combo) [code = CT Colonography (combo)] [facility] Future Scheduled Test 1964 00:00:00 Screening for malignant neoplasm of colon (procedure) [code = 015280674] [facility] Future Scheduled Test 1964 00:00:00 Screening for malignant neoplasm of colon (procedure) [code = 303743996] [facility] Future Scheduled Test 1964 00:00:00 Screening for malignant neoplasm of colon (procedure) [code = 326128447] [facility] Future Scheduled Test 1964 00:00:00 Screening for malignant neoplasm of colon (procedure) [code = 749744654] [facility] Future Scheduled Test 1964 00:00:00 Sigmoidoscopy [code = Sigmoidoscopy] [facility] Future Scheduled Test 1964 00:00:00 CT Colonography (combo) [code = CT Colonography (combo)] [facility] Future Scheduled Test 1964 00:00:00 Screening for malignant neoplasm of colon (procedure) [code = 313725894] [facility] Future Scheduled Test 1964 00:00:00 Screening for malignant neoplasm of colon (procedure) [code = 312913984] [facility] Future Scheduled Test 1964 00:00:00 Screening for malignant neoplasm of colon (procedure) [code = 845251854] [facility] Future Scheduled Test 1964 00:00:00 Screening for malignant neoplasm of colon (procedure) [code = 563442357] [facility] Future Scheduled Test 1964 00:00:00 Sigmoidoscopy [code = Sigmoidoscopy] [facility] Future Scheduled Test 1964 00:00:00 CT Colonography (combo) [code = CT Colonography (combo)] [facility] Future Scheduled Test 1964 00:00:00 Screening for malignant neoplasm of colon (procedure) [code = 335605295] [facility] Future Scheduled Test 1964 00:00:00 Screening for malignant neoplasm of colon (procedure) [code = 882405308] [facility] Future Scheduled Test 1964 00:00:00 Screening for malignant neoplasm of colon (procedure) [code = 081686859] [facility] Future Scheduled Test 1964 00:00:00 Screening for malignant neoplasm of colon (procedure) [code = 554255471] [facility] Future Scheduled Test 1964 00:00:00 Sigmoidoscopy [code = Sigmoidoscopy] [facility] Future Scheduled Test 1964 00:00:00 CT Colonography (combo) [code = CT Colonography (combo)] [facility] Future Scheduled Test 1964 00:00:00 Screening for malignant neoplasm of colon (procedure) [code = 995761853] [facility] Future Scheduled Test 1964 00:00:00 Screening for malignant neoplasm of colon (procedure) [code = 381879556] [facility] Future Scheduled Test 1964 00:00:00 Screening for malignant neoplasm of colon (procedure) [code = 579899569] [facility] Future Scheduled Test 1964 00:00:00 Screening for malignant neoplasm of colon (procedure) [code = 489892874] [facility] Future Scheduled Test 1964 00:00:00 Sigmoidoscopy [code = Sigmoidoscopy] [facility] Encounters Start Date/Time End Date/Time Encounter Type Admission Type Attending [facility] Care Department Encounter ID Source 2023-12-14 11:38:27 Inpatient LC WILKS [facility] [id number] [facility] 2023-12-12 07:08:20 Inpatient KAITLYN SELLERS [facility] [id number] [facility] 2023-12-11 00:00:00 Inpatient KAITLYN SELLERS [facility] [id number] [facility] 2023-07-19 12:02:19 Inpatient RORY YOU [facility] [id number] [facility] 2023-06-19 14:56:11 Inpatient TEXKRISTIE TEXANA [id number] [facility] 2023-06-12 07:42:28 Inpatient TEXANA TEXANA [id number] [facility] 2023-03-26 19:59:00 Inpatient E [facility] [id number] [facility] 2022-09-27 08:40:44 Inpatient TEXANA TEXANA [id number] [facility] 2022-03-17 08:41:23 Inpatient TEXANA TEXANA [id number] [facility] 2022-02-01 10:02:35 [facility] [id number] [facility] 2022-01-21 12:27:16 Inpatient AISHA LEONARD [id number] [facility] 2022-01-20 08:13:32 Inpatient AISHA LEONARD [id number] [facility] 2023-12-25 08:23:23 2023-12-25 08:23:23 Outpatient [facility] [id number] Goyo Wheeler 2023-12-09 16:35:00 2023-12-19 15:00:00 Hospital Encounter ER Kaitlyn Heredia, Renita Banuelos, Riley Patiño [facility] [id number] [facility] 2023-12-09 16:35:00 2023-12-19 15:00:00 Inpatient ER KEITH ROPER [facility] [id number] [facility] 2023-12-16 00:47:23 2023-12-16 00:47:23 Outpatient [facility] [id number] 2023-12-16 00:00:00 2023-12-16 00:00:00 Outpatient ELVIN YU [facility] [id number] [facility] 2023-12-15 07:15:09 2023-12-15 07:15:09 Outpatient ELVIN YU [facility] [id number] [facility] 2023-12-15 00:03:48 2023-12-15 00:03:48 Outpatient ELVIN YU [facility] [id number] [facility] 2023-12-15 00:00:00 2023-12-15 00:00:00 Travel [facility] [id number] [facility] 2023-12-14 14:56:12 2023-12-14 14:56:12 Outpatient ELVIN YU [facility] [id number] [facility] 2023-12-14 00:12:06 2023-12-14 00:12:06 Outpatient ELVIN YU [facility] [id number] [facility] 2023-12-13 00:12:11 2023-12-13 00:12:11 Outpatient ELVIN YU [facility] [id number] [facility] 2023-12-12 18:48:29 2023-12-12 18:48:29 Outpatient ELVIN YU [facility] [id number] [facility] 2023-12-12 16:07:23 2023-12-12 16:07:23 Outpatient MATTHEW Doherty [facility]RENITA [facility] [id number] [facility] 2023-12-12 14:53:32 2023-12-12 14:53:32 Outpatient ELVIN YU [facility] [id number] [facility] 2023-12-12 00:15:53 2023-12-12 00:15:53 Outpatient KAITLYN SELLERS [facility] [id number] [facility] 2023-12-12 00:00:00 2023-12-12 00:00:00 Outpatient ELVIN YU [facility] [id number] [facility] 2023-12-11 00:14:16 2023-12-11 00:14:16 Outpatient KAITLYN SELLERS [facility] [id number] [facility] 2023-12-10 11:36:54 2023-12-10 11:36:54 Outpatient LC WILKS [facility] [id number] [facility] 2023-12-10 00:04:00 2023-12-10 00:04:00 Outpatient KAITLYN SELLERS [facility] [id number] [facility] 2023-12-09 19:19:02 2023-12-09 19:19:02 Outpatient KAITLYN SELLERS [facility] [id number] [facility] 2023-12-09 00:00:00 2023-12-09 00:00:00 Orders Only Provider, Not In System [facility] [id number] [facility] 2023-11-27 16:07:00 2023-11-27 16:07:00 Outpatient FLOR RAY [id number] Goyo Wheeler 2023-11-13 16:08:15 2023-11-13 16:08:15 Outpatient [facility] [id number] Goyo Wheeler 2023-11-11 19:14:00 2023-11-12 13:04:00 Emergency EM Crystal Erwin [facility] [id number] [facility] 2023-11-06 14:58:36 2023-11-06 14:58:36 Outpatient [facility] [id number] Goyo Wheeler 2023-07-18 07:54:00 2023-07-22 10:57:00 Inpatient ER KAY ALBERTO [facility] Internal Med [id number] [facility] 2023-07-18 07:54:00 2023-07-22 10:57:00 Hospital Encounter ER Kay Alberto S [facility] [id number] [facility] 2023-07-18 14:30:00 2023-07-18 15:00:00 Surgery Rory Jackson [facility] [id number] [facility] 2023-07-18 14:37:00 2023-07-18 14:46:00 Anesthesia Event Dontrell Waters Jose Luis [facility] [id number] [facility] 2023-07-17 21:13:00 2023-07-18 06:45:00 Emergency ER PRESTON ENRIQUEZ [facility] [id number] [facility] 2023-07-18 00:00:00 2023-07-18 00:00:00 Travel [facility] [id number] [facility] 2023-07-16 20:28:00 2023-07-17 04:45:00 Emergency ER PRESTON ENRIQUEZ [facility] [id number] [facility] 2023-07-14 20:25:00 2023-07-14 22:50:00 Emergency ER Maris Mckeon [facility] [id number] [facility] 2023-06-10 11:24:00 2023-06-10 16:05:00 Emergency ER BILLY GALEAS [facility] [id number] [facility] 2023-06-08 17:56:00 2023-06-08 22:40:00 Emergency ER LATOYA STRICKLAND [facility] [id number] [facility] 2023-06-01 09:48:00 2023-06-06 15:15:00 Inpatient ER DAVE ASHLEY [facility] [id number] [facility] 2023-05-31 14:01:00 2023-05-31 14:26:00 Emergency ER Maris Mckeon [facility] [id number] [facility] 2023-05-08 07:16:00 2023-05-08 07:45:00 Emergency ER Maris Mckeon [facility] [id number] [facility] 2023-05-01 18:43:00 2023-05-01 19:45:00 Emergency ER LAWSON ROCKY [facility] [id number] [facility] 2023-04-06 19:10:00 2023-04-07 01:33:00 Emergency ER BETSY KIM [facility] [id number] [facility] 2023-03-29 21:54:00 2023-03-30 00:08:00 Emergency ER PRESTON ENRIQUEZ [facility] [id number] [facility] 2023-03-26 19:59:00 2023-03-26 22:15:00 Outpatient JEREMY ELLIS [facility] [id number] [facility] 2023-03-24 21:01:00 2023-03-25 11:25:00 Outpatient E KELBY WHEELER OKEZIKA [facility] [id number] [facility] 2023-03-24 21:01:00 2023-03-24 21:01:00 Outpatient E [facility] [id number] [facility] 2023-03-08 12:45:00 2023-03-08 15:09:00 Emergency TR ROCKY LAWSON [facility] [id number] [facility] 2023-02-07 20:11:00 2023-02-07 21:51:00 Emergency ER LATOYA STRICKLAND [facility] [id number] [facility] 2023-01-01 19:05:00 2023-01-01 20:30:00 Outpatient E ANASTASIA TERRELL [facility] [id number] [facility] 2022-12-26 02:43:00 2022-12-26 05:10:00 Emergency ER PRESTON ENRIQUEZ [facility] [id number] [facility] 2022-12-14 12:33:00 2022-12-19 14:45:00 Inpatient ER [facility] [id number] [facility] 2022-12-14 12:33:00 2022-12-19 14:45:00 [facility] [id number] [facility] 2022-12-14 00:00:00 2022-12-14 00:00:00 Travel [facility] [id number] [facility] 2022-10-26 00:01:00 2022-10-26 05:12:00 Emergency ER PRESTON ENRIQUEZ [facility] [id number] [facility] 2022-10-24 00:39:00 2022-10-24 07:00:00 Emergency ER PRESTON ENRIQUEZ [facility] [id number] [facility] 2022-10-18 00:00:00 2022-10-18 00:00:00 Orders Only Doctor Unassigned, Griffin [facility] 1.0.114 350.1.13.10 4.2.7.2.686 [id number] [facility] 2022-10-07 10:10:00 2022-10-09 15:15:00 Outpatient U RUBEN CONN [facility] [id number] [facility] 2022-10-07 10:10:00 2022-10-09 15:15:00 Hospital Encounter Heidy Pardeepdodie LopezuyRuben morin [facility] 1.114 350.1.13.10 4.2.7.2.686 [id number] [facility] 2022-09-28 01:38:00 2022-09-28 06:55:00 Emergency ER PRESTON ENRIQUEZ [facility] [id number] [facility] 2022-09-20 00:00:00 2022-09-20 00:00:00 Outpatient [facility] [id number] [facility] 2022-09-15 00:00:00 2022-09-15 00:00:00 Outpatient [facility] [id number] [facility] 2022-09-01 00:00:00 2022-09-01 00:00:00 Orders Only Doctor Unassigned, Griffin [facility] 1..114 350.1.13.10 4.2.7.2.686 [id number] [facility] 2022-08-25 00:00:00 2022-08-25 00:00:00 Transition of Care Tamara Partida 1..114 350.1.13.10 4.2.7.2.686 [id number] [facility] 2022-08-25 00:00:00 2022-08-25 00:00:00 Telephone Patrick Maya [facility] 1.2.840.114 350.1.13.10 4.2.7.2.686 [id number] [facility] 2022-08-21 19:04:00 2022-08-24 14:48:00 Inpatient U RIVKA CREWS [facility] [id number] [facility] 2022-08-21 19:04:00 2022-08-24 14:48:00 Hospital Encounter [facility] 1.2.840.114 350.1.13.10 4.2.7.2.686 [id number] [facility] 2022-06-08 22:06:00 2022-06-09 01:10:00 Outpatient E JEOVANY KARRI [facility] [id number] [facility] 2022-05-20 09:20:24 2022-05-20 09:20:24 Outpatient SFA [facility] [id number] Goyo Wheeler 2022-04-21 00:00:00 2022-04-21 00:00:00 Outpatient Nguyen_Tho [facility] [id number] [facility] 2022-04-21 00:00:00 2022-04-21 00:00:00 Outpatient Nguyen_Tho [facility] [id number] [facility] 2022-03-29 10:55:00 2022-03-29 16:30:00 Emergency ER ROCKY LAWSON [facility] [id number] [facility] 2022-02-24 00:00:00 2022-02-24 00:00:00 Outpatient Nguyen_Tho [facility] [id number] [facility] 2021-12-28 18:46:00 2021-12-29 13:57:00 Emergency ER XENIA SANZ [facility] [id number] [facility] 2021-12-18 03:17:00 2021-12-28 14:00:00 Inpatient ER KAY ALBERTO [facility] Internal Med [id number] [facility] 2021-12-18 03:17:00 2021-12-28 14:00:00 Hospital Encounter ER Kay Alberto Surinder [facility] [id number] [facility] 2021-12-17 16:33:00 2021-12-18 02:10:00 Emergency ER LATOYA STRICKLAND [facility] [id number] [facility] 2021-12-18 00:00:00 2021-12-18 00:00:00 Travel [facility] [id number] [facility] 2021-09-23 15:52:00 2021-09-23 19:28:00 Emergency ER AJAY PORRASJose Miguel [facility] [id number] [facility] 2021-09-07 02:02:00 2021-09-07 03:31:00 Emergency ER STEVE DIOGO [facility] [id number] [facility] 2021-06-24 17:48:00 2021-06-24 21:15:00 Emergency ER MELONIE HE [facility] [id number] [facility] 2021-06-07 13:11:00 2021-06-07 17:27:00 Emergency ER HEMELONIE COPPOLA [facility] [id number] [facility] 2021-02-18 10:45:00 2021-02-19 22:25:00 Inpatient ER RADHA GATICA [facility] [id number] [facility] 2020-12-23 02:39:00 2020-12-23 03:03:00 Emergency ER GOYO KAISER [facility] [id number] [facility] 2020-08-31 17:00:00 2020-08-31 19:41:00 Emergency ER OWAJAY BrooksS [facility] [id number] [facility] 2019-11-15 03:51:00 2019-11-15 05:19:00 Emergency ER MEGA GALICIA [facility] [id number] [facility] 2019-10-18 18:51:00 2019-10-18 21:54:00 Emergency ER JARAD TREJO [facility] [id number] [facility] 2019-03-27 09:29:00 2019-03-27 10:45:00 Outpatient E SENIA ADY [facility] [id number] [facility] 2019-03-25 05:16:00 2019-03-25 07:23:00 Emergency ER ORLANDO FERRELL [facility] [id number] [facility] 2018-10-28 20:55:00 2018-10-28 21:40:00 Emergency ER JESSICA GRAY [facility] [id number] [facility] 2017-12-18 00:21:00 2017-12-18 05:15:00 Emergency ER JARAD TREJO [facility] [id number] [facility] 2016-04-06 11:20:00 2016-04-06 17:08:00 Emergency ER STEFANI BURKS [facility] [id number] [facility] 2015-09-06 07:12:00 2015-09-06 10:40:00 Emergency ER TINO PORRAS [facility] [id number] [facility] 2015-01-05 07:03:00 2015-01-05 17:58:00 Inpatient ER CRISTIN CURIEL [facility] [id number] [facility] 2014-12-04 06:40:00 2014-12-04 08:16:00 Emergency ER FREEMAN LOUISE [facility] [id number] [facility] 2013-01-11 00:33:00 2013-01-11 03:42:00 Emergency ER JEREMY RODRIGUEZ [facility] [id number] [facility] 2009-02-23 12:17:00 2009-02-23 17:16:00 Emergency ER IRISH TINSLEY [facility] [id number] [facility] Results Test Description Test Time Test Comments Results Result Co mments Source [id number] 06:06:24* Test Item Value Reference Range Interpretation Comme nts MAGNESIUM (BEAKER) (test cod e = 627) 1.4 mg/dL 1.6-2.6 L [id number] 06:06:24* Test Item Value Reference Range Interpretation Comme nts PHOSPHORUS (BEAKER) (test co de = 604) 2.7 mg/dL 2.3-4.7 PROTHROMBIN TIME/[id number] 05:45:24* Test Item Value Reference Range Interpretation Comme nts PROTIME (BEAKER) (test code = 759) 15.8 seconds 11.9-14.2 H INR (BEAKER) (test code = 370) 1.25 <=5.90 RECOMMENDED COUMADIN/WARFARIN INR THERAPY RANGESSTANDARD DOSE: 2.0 - 3.0 Includes: PROPHYLAXIS for venous thrombosis, systemic embolization; TREATMENT for venous thrombosis and/or pulmonary embolus.HIGH RISK: Target INR is 2.5-3.5 for patients with mechanical heart valves.CBC W/PLT COUNT & AUTO DIFFERENTIAL 2023-12-19 05:31:46* Test Item Value Reference Range Interpretation Comme nts WHITE BLOOD CELL COUNT (BEAK ER) (test code = 775) 7.7 K/ L 3.5-10.5 RED BLOOD CELL COUNT (BEAKER ) (test code = 761) 2.99 M/ L 4.63-6.08 L HEMOGLOBIN (BEAKER) (test co de = 410) 8.0 GM/DL 13.7-17.5 L HEMATOCRIT (BEAKER) (test co de = 411) 25.4 % 40.1-51.0 L MEAN CORPUSCULAR VOLUME (CHERELLE KER) (test code = 753) 85 fL 79-92 MEAN CORPUSCULAR HEMOGLOBIN (BEAKER) (test code = 751) 26.8 pg 25.7-32.2 MEAN CORPUSCULAR HEMOGLOBIN CONC (BEAKER) (test code = 752) 31.5 GM/DL 32.3-36.5 L RED CELL DISTRIBUTION WIDTH (BEAKER) (test code = 412) 16.0 % 11.6-14.4 H PLATELET COUNT (BEAKER) (rudy t code = 756) 189 K/CU MM 150-450 MEAN PLATELET VOLUME (BEAKER ) (test code = 754) 10.0 fL 9.4-12.4 NUCLEATED RED BLOOD CELLS (BEAKER) (test code = 413) 0 /100 WBC 0-0 NEUTROPHILS RELATIVE PERCENT (BEAKER) (test code = 429) 63 % LYMPHOCYTES RELATIVE PERCENT (BEAKER) (test code = 430) 20 % MONOCYTES RELATIVE PERCENT (BEAKER) (test code = 431) 13 % EOSINOPHILS RELATIVE PERCENT (BEAKER) (test code = 432) 3 % BASOPHILS RELATIVE PERCENT (BEAKER) (test code = 437) 1 % NEUTROPHILS ABSOLUTE COUNT (BEAKER) (test code = 670) 4.84 K/ L 1.78-5.38 LYMPHOCYTES ABSOLUTE COUNT (BEAKER) (test code = 414) 1.53 K/ L 1.32-3.57 MONOCYTES ABSOLUTE COUNT (BE GUZMAN) (test code = 415) 0.98 K/ L 0.30-0.82 H EOSINOPHILS ABSOLUTE COUNT (BEAKER) (test code = 416) 0.24 K/ L 0.04-0.54 BASOPHILS ABSOLUTE COUNT (BE GUZMAN) (test code = 417) 0.05 K/ L 0.01-0.08 IMMATURE GRANULOCYTES-RELATI VE PERCENT (BEAKER) (test code = 2801) 0.40 % 0.00-1.00 POC-Glucose [id number] 05:23:36* Test Item Value Reference Range Interpretation Comme nts POC-Glucose Meter (test code = 1538) 91 mg/dL 70-110 : TESTED AT [address], [address]: Heel Seam Rubber/Maintainer Operator ID = [id number] for Yasmany Giana Lab Interpretation (test code = 00568-9) [facility] [id number] 05:23:36* Test Item Value Reference Range Interpretation Comme nts POC-GLUCOSE METER (BEAKER) (test code = 1538) 91 mg/dL 70-110 : TESTED AT [address], [address]: Heel Seam Rubber/Maintainer Operator ID = [id number] for Giana Jade POCT-GLUCOSE [id number] 00:56:07* Test Item Value Reference Range Interpretation Comme nts POC-GLUCOSE METER (BEAKER) (test code = 1538) 83 mg/dL 70-110 : TESTED AT [address], [address]: Heel Seam Rubber/Maintainer Operator ID = [id number] for Yasmany Giana POCT-GLUCOSE [id number] 17:49:40* Test Item Value Reference Range Interpretation Comme nts POC-GLUCOSE METER (BEAKER) (test code = 1538) 113 mg/dL 70-110 H : TESTED AT [address], [address]: Heel Seam Rubber/Maintainer Operator ID = [id number] for Mirela Sarbjita POCT-GLUCOSE [id number] 12:51:19* Test Item Value Reference Range Interpretation Comme nts POC-GLUCOSE METER (BEAKER) (test code = 1538) 84 mg/dL 70-110 : TESTED AT [address], [address]: Heel Seam Rubber/Maintainer Operator ID = [id number] for Laurie Galicia BASIC METABOLIC [id number] 07:26:28* Test Item Value Reference Range Interpretation Comme nts SODIUM (BEAKER) (test code = 381) 135 meq/L 136-145 L POTASSIUM (BEAKER) (test code = 379) 3.8 meq/L 3.5-4.5 CHLORIDE (BEAKER) (test code = 382) 103 meq/L 98-107 CO2 (BEAKER) (test code = 355) 23 meq/L 22-29 BLOOD UREA NITROGEN (BEAKER) (test code = 354) 14 mg/dL 8-26 CREATININE (BEAKER) (test code = 358) 0.70 mg/dL 0.72-1.25 L GLUCOSE RANDOM (BEAKER) (test code = 652) 69 mg/dL 70-105 L CALCIUM (BEAKER) (test code = 697) 8.2 mg/dL 8.4-10.2 L EGFR (BEAKER) (test code = 1092) 106 mL/min/1.73 sq m Interpretation of eG FR values Stage Description Result G1 Normal or high >=90 G2 Mildly decreased 60-89 G3a Mildly to moderately 45-59 G3b Moderately to severely 30-44 G4 Severly decreased 15-29 G5 Kidney failure <15Reported eGFR is based on the CKD-EPI 2020 equation that does not use a race coefficientEstimated GFR is not as accurate as Creatinine Clearance in predicting glomerular filtration rate. Estimated GFR is not applicable for dialysis patients [id number] 07:26:28* Test Item Value Reference Range Interpretation Comme nts MAGNESIUM (BEAKER) (test cod e = 627) 1.5 mg/dL 1.6-2.6 L [id number] 07:26:28* Test Item Value Reference Range Interpretation Comme nts PHOSPHORUS (BEAKER) (test co de = 604) 3.2 mg/dL 2.3-4.7 PROTHROMBIN TIME/[id number] 07:11:24* Test Item Value Reference Range Interpretation Comme nts PROTIME (BEAKER) (test code = 759) 14.4 seconds 11.9-14.2 H INR (BEAKER) (test code = 370) 1.11 <=5.90 RECOMMENDED COUMADIN/WARFARIN INR THERAPY RANGESSTANDARD DOSE: 2.0 - 3.0 Includes: PROPHYLAXIS for venous thrombosis, systemic embolization; TREATMENT for venous thrombosis and/or pulmonary embolus.HIGH RISK: Target INR is 2.5-3.5 for patients with mechanical heart valves.CBC W/PLT COUNT & AUTO DIFFERENTIAL 2023-12-18 07:03:44* Test Item Value Reference Range Interpretation Comme nts WHITE BLOOD CELL COUNT (BEAK ER) (test code = 775) 6.8 K/ L 3.5-10.5 RED BLOOD CELL COUNT (BEAKER ) (test code = 761) 2.96 M/ L 4.63-6.08 L HEMOGLOBIN (BEAKER) (test co de = 410) 7.9 GM/DL 13.7-17.5 L HEMATOCRIT (BEAKER) (test co de = 411) 25.7 % 40.1-51.0 L MEAN CORPUSCULAR VOLUME (CHERELLE KER) (test code = 753) 87 fL 79-92 MEAN CORPUSCULAR HEMOGLOBIN (BEAKER) (test code = 751) 26.7 pg 25.7-32.2 MEAN CORPUSCULAR HEMOGLOBIN CONC (BEAKER) (test code = 752) 30.7 GM/DL 32.3-36.5 L RED CELL DISTRIBUTION WIDTH (BEAKER) (test code = 412) 16.0 % 11.6-14.4 H PLATELET COUNT (BEAKER) (rudy t code = 756) 177 K/CU MM 150-450 MEAN PLATELET VOLUME (BEAKER ) (test code = 754) 9.2 fL 9.4-12.4 L NUCLEATED RED BLOOD CELLS (BEAKER) (test code = 413) 0 /100 WBC 0-0 NEUTROPHILS RELATIVE PERCENT (BEAKER) (test code = 429) 65 % LYMPHOCYTES RELATIVE PERCENT (BEAKER) (test code = 430) 18 % MONOCYTES RELATIVE PERCENT (BEAKER) (test code = 431) 14 % EOSINOPHILS RELATIVE PERCENT (BEAKER) (test code = 432) 3 % BASOPHILS RELATIVE PERCENT (BEAKER) (test code = 437) 1 % NEUTROPHILS ABSOLUTE COUNT (BEAKER) (test code = 670) 4.41 K/ L 1.78-5.38 LYMPHOCYTES ABSOLUTE COUNT (BEAKER) (test code = 414) 1.21 K/ L 1.32-3.57 L MONOCYTES ABSOLUTE COUNT (BE GUZMAN) (test code = 415) 0.94 K/ L 0.30-0.82 H EOSINOPHILS ABSOLUTE COUNT (BEAKER) (test code = 416) 0.18 K/ L 0.04-0.54 BASOPHILS ABSOLUTE COUNT (BE GUZMAN) (test code = 417) 0.04 K/ L 0.01-0.08 IMMATURE GRANULOCYTES-RELATI VE PERCENT (BEAKER) (test code = 2801) 0.40 % 0.00-1.00 POCT-GLUCOSE [id number] 05:48:03* Test Item Value Reference Range Interpretation Comme nts POC-GLUCOSE METER (BEAKER) (test code = 1538) 90 mg/dL 70-110 : TESTED AT [address], [address]: Heel Seam Rubber/Maintainer Operator ID = [id number] for Carito Tuttle BLOOD [id number] 04:01:08* Test Item Value Reference Range Interpretation Comme nts CULTURE (BEAKER) (test code = 1095) No growth in 5 days BLOOD [id number] 04:01:08* Test Item Value Reference Range Interpretation Comme nts CULTURE (BEAKER) (test code = 1095) No growth in 5 days Drug screen, urine, [id number] 01:23:17Scan [id number] 1:23 AM [facility] [id number] 00:26:57* Test Item Value Reference Range Interpretation Comme nts POC-GLUCOSE METER (BEAKER) (test code = 1538) 88 mg/dL 70-110 : TESTED AT [address], [address]: Heel Seam Rubber/Maintainer Operator ID = [id number] for Carito Tuttle POCT-GLUCOSE [id number] 18:01:22* Test Item Value Reference Range Interpretation Comme nts POC-GLUCOSE METER (BEAKER) (test code = 1538) 87 mg/dL 70-110 : TESTED AT [address], [address]: Heel Seam Rubber/Maintainer Operator ID = [id number] for Fontanez, Satnam IRON, TIBC, % SAT. (WITHOUT FERRITIN)2023-12-17 12:21:27* Test Item Value Reference Range Interpretation Comme nts IRON (BEAKER) (test code = 547) 35.0 ug/dL 65.0-175.0 L TOTAL IRON BINDING CAPACITY (BEAKER) (test code = 769) 320 ug/dL 250-450 IRON % SATURATION (2) (BEAKE R) (test code = 2590) 11 % 20-55 L POCT-GLUCOSE [id number] 11:44:52* Test Item Value Reference Range Interpretation Comme nts POC-GLUCOSE METER (BEAKER) (test code = 1538) 104 mg/dL 70-110 : TESTED AT [facility] [address] [facility], [address]: Heel Seam Rubber/Maintainer Operator ID = [id number] for Satnam Fontanez POCT-GLUCOSE [id number] 07:27:51* Test Item Value Reference Range Interpretation Comme nts POC-GLUCOSE METER (BEAKER) (test code = 1538) 84 mg/dL 70-110 : TESTED AT [facility] [address] [facility], [address]: Heel Seam Rubber/Maintainer Operator ID = [id number] for Giana Jade [id number] 06:42:25* Test Item Value Reference Range Interpretation Comme nts FERRITIN (BEAKER) (test code = 361) 88.13 ng/mL 21.81-274.66 BASIC METABOLIC [id number] 06:35:05* Test Item Value Reference Range Interpretation Comme nts SODIUM (BEAKER) (test code = 381) 133 meq/L 136-145 L POTASSIUM (BEAKER) (test code = 379) 4.0 meq/L 3.5-4.5 Specimen slightl y hemolyzed CHLORIDE (BEAKER) (test code = 382) 100 meq/L 98-107 CO2 (BEAKER) (test code = 355) 24 meq/L 22-29 BLOOD UREA NITROGEN (BEAKER) (test code = 354) 17 mg/dL 8-26 CREATININE (BEAKER) (test code = 358) 0.77 mg/dL 0.72-1.25 Specimen slightl y hemolyzed GLUCOSE RANDOM (BEAKER) (test code = 652) 84 mg/dL 70-105 CALCIUM (BEAKER) (test code = 697) 8.6 mg/dL 8.4-10.2 EGFR (BEAKER) (test code = 1092) 103 mL/min/1.73 sq m Interpretation of eG FR values Stage Description Result G1 Normal or high >=90 G2 Mildly decreased 60-89 G3a Mildly to moderately 45-59 G3b Moderately to severely 30-44 G4 Severly decreased 15-29 G5 Kidney failure <15Reported eGFR is based on the CKD-EPI 2020 equation that does not use a race coefficientEstimated GFR is not as accurate as Creatinine Clearance in predicting glomerular filtration rate. Estimated GFR is not applicable for dialysis patients [id number] 06:35:04* Test Item Value Reference Range Interpretation Comme nts MAGNESIUM (BEAKER) (test code = 627) 1.6 mg/dL 1.6-2.6 Specimen sligh tly hemolyzed [id number] 06:35:04* Test Item Value Reference Range Interpretation Comme nts PHOSPHORUS (BEAKER) (test code = 604) 3.8 mg/dL 2.3-4.7 Specimen sligh tly hemolyzed PROTHROMBIN TIME/[id number] 06:06:13* Test Item Value Reference Range Interpretation Comme nts PROTIME (BEAKER) (test code = 759) 15.4 seconds 11.9-14.2 H INR (BEAKER) (test code = 370) 1.21 <=5.90 RECOMMENDED COUMADIN/WARFARIN INR THERAPY RANGESSTANDARD DOSE: 2.0 - 3.0 Includes: PROPHYLAXIS for venous thrombosis, systemic embolization; TREATMENT for venous thrombosis and/or pulmonary embolus.HIGH RISK: Target INR is 2.5-3.5 for patients with mechanical heart valves.CBC W/PLT COUNT & AUTO DIFFERENTIAL 2023-12-17 05:55:12* Test Item Value Reference Range Interpretation Comme nts WHITE BLOOD CELL COUNT (BEAK ER) (test code = 775) 6.4 K/ L 3.5-10.5 RED BLOOD CELL COUNT (BEAKER ) (test code = 761) 2.83 M/ L 4.63-6.08 L HEMOGLOBIN (BEAKER) (test co de = 410) 7.7 GM/DL 13.7-17.5 L HEMATOCRIT (BEAKER) (test co de = 411) 24.6 % 40.1-51.0 L MEAN CORPUSCULAR VOLUME (CHERELLE KER) (test code = 753) 87 fL 79-92 MEAN CORPUSCULAR HEMOGLOBIN (BEAKER) (test code = 751) 27.2 pg 25.7-32.2 MEAN CORPUSCULAR HEMOGLOBIN CONC (BEAKER) (test code = 752) 31.3 GM/DL 32.3-36.5 L RED CELL DISTRIBUTION WIDTH (BEAKER) (test code = 412) 16.3 % 11.6-14.4 H PLATELET COUNT (BEAKER) (rudy t code = 756) 169 K/CU MM 150-450 MEAN PLATELET VOLUME (BEAKER ) (test code = 754) 9.4 fL 9.4-12.4 NUCLEATED RED BLOOD CELLS (BEAKER) (test code = 413) 0 /100 WBC 0-0 NEUTROPHILS RELATIVE PERCENT (BEAKER) (test code = 429) 60 % LYMPHOCYTES RELATIVE PERCENT (BEAKER) (test code = 430) 20 % MONOCYTES RELATIVE PERCENT (BEAKER) (test code = 431) 17 % EOSINOPHILS RELATIVE PERCENT (BEAKER) (test code = 432) 3 % BASOPHILS RELATIVE PERCENT (BEAKER) (test code = 437) 1 % NEUTROPHILS ABSOLUTE COUNT (BEAKER) (test code = 670) 3.84 K/ L 1.78-5.38 LYMPHOCYTES ABSOLUTE COUNT (BEAKER) (test code = 414) 1.25 K/ L 1.32-3.57 L MONOCYTES ABSOLUTE COUNT (BE GUZMAN) (test code = 415) 1.06 K/ L 0.30-0.82 H EOSINOPHILS ABSOLUTE COUNT (BEAKER) (test code = 416) 0.17 K/ L 0.04-0.54 BASOPHILS ABSOLUTE COUNT (BE GUZMAN) (test code = 417) 0.04 K/ L 0.01-0.08 IMMATURE GRANULOCYTES-RELATI VE PERCENT (BEAKER) (test code = 2801) 0.50 % 0.00-1.00 POCT-GLUCOSE [id number] 01:15:25* Test Item Value Reference Range Interpretation Comme nts POC-GLUCOSE METER (BEAKER) (test code = 1538) 92 mg/dL 70-110 : TESTED AT [facility] [address] [facility] [place], [id number]: [employer] Rubber/Maintainer Operator ID = [id number] for Giana Jade XR ABDOMEN/KUB 1 VIEW [id number] 17:52:24 [facility] : 1965 Sex: MXR ABDOMEN/KUB 1 VIEW PORTABLECLINICAL INDICATION: Ileus COMPARISON: 12/14/2023TECHNIQUE: Single, frontal radiograph of the abdomen.FINDINGS: Decreased distention of multiple bowel loops compatible with slightimprovement in ileus. Evaluation for free air is limited by portablesupine technique. Within these limitations, no free air is identified. Electronically Signed By: Rivka Scott12/16/2023 17:54 CD TWorkstation Name: [id number] 12:05:51* Test Item Value Reference Range Interpretation Comme nts POC-GLUCOSE METER (BEAKER) (test code = 1538) 96 mg/dL 70-110 : TESTED AT [facility] [address] [facility], [address]: Heel Seam Rubber/Maintainer Operator ID = [id number] for JV HRISCH SPUTUM CULTURE + GRAM [id number] 09:12:46* Test Item Value Reference Range Interpretation Comments CULTURE (BEAKER) (test code = 1095) STAPHYLOCOCCUS AUREUS A <1+ Staphylococcus aureus Clindamycin (test code = 10) R Erythromycin (test code = 4) R Linezolid (test code = 40) S Nitrofurantoin (test code = 23) S Oxacillin (test code = 14) S Rifampin (test code = 43) S Tetracycline (test code = 2) S Trimethoprim + Sulfamethoxazole (test code = 47) S Vancomycin (test code = 13) S GRAM STAIN RESULT (BEAKER) (test code = 1123) 4+ WBCs GRAM STAIN RESULT (BEAKER) (test code = 946961) 0-5 epithelial cells GRAM STAIN RESULT (BEAKER) (test code = 660626) <1+ gram negative rods GRAM STAIN RESULT (BEAKER) (test code = 749064) 1+ gram positive cocci in clusters 2+ Normal respiratory jack presentPOCT-GLUCOSE [id number] 06:32:44* Test Item Value Reference Range Interpretation Comme nts POC-GLUCOSE METER (BEAKER) (test code = 1538) 83 mg/dL 70-110 : Notified RN/MD : TESTED AT [facility] [address] [facility], [address]: Heel Seam Rubber/Maintainer Operator ID = [id number] for Tracey Demarco BASIC METABOLIC [id number] 04:13:32* Test Item Value Reference Range Interpretation Comme nts SODIUM (BEAKER) (test code = 381) 136 meq/L 136-145 POTASSIUM (BEAKER) (test code = 379) 4.0 meq/L 3.5-5.1 CHLORIDE (BEAKER) (test code = 382) 105 meq/L 98-107 CO2 (BEAKER) (test code = 355) 25 meq/L 22-29 BLOOD UREA NITROGEN (BEAKER) (test code = 354) 17 mg/dL 7-21 CREATININE (BEAKER) (test code = 358) 0.77 mg/dL 0.57-1.25 GLUCOSE RANDOM (BEAKER) (test code = 652) 106 mg/dL 70-105 H CALCIUM (BEAKER) (test code = 697) 8.3 mg/dL 8.4-10.2 L EGFR (BEAKER) (test code = 1092) 103 mL/min/1.73 sq m Interpretation of eG FR values Stage Description Result G1 Normal or high >=90 G2 Mildly decreased 60-89 G3a Mildly to moderately 45-59 G3b Moderately to severely 30-44 G4 Severly decreased 15-29 G5 Kidney failure <15Reported eGFR is based on the CKD-EPI 2020 equation that does not use a race coefficientEstimated GFR is not as accurate as Creatinine Clearance in predicting glomerular filtration rate. Estimated GFR is not applicable for dialysis patients Heel Seam Rubber ID - [id number] 04:13:32* Test Item Value Reference Range Interpretation Comme nts MAGNESIUM (BEAKER) (test cod e = 627) 1.6 mg/dL 1.6-2.6 Heel Seam Rubber ID - [id number] 04:13:32* Test Item Value Reference Range Interpretation Comme nts PHOSPHORUS (BEAKER) (test co de = 604) 2.7 mg/dL 2.3-4.7 Heel Seam Rubber ID - ADMINPROTHROMBIN TIME/[id number] 03:45:58* Test Item Value Reference Range Interpretation Comme nts PROTIME (BEAKER) (test code = 759) 15.1 seconds 11.9-14.2 H INR (BEAKER) (test code = 370) 1.18 <=5.90 RECOMMENDED COUMADIN/WARFARIN INR THERAPY RANGESSTANDARD DOSE: 2.0 - 3.0 Includes: PROPHYLAXIS for venous thrombosis, systemic embolization; TREATMENT for venous thrombosis and/or pulmonary embolus.HIGH RISK: Target INR is 2.5-3.5 for patients with mechanical heart valves.CBC W/PLT COUNT & AUTO DIFFERENTIAL 2023-12-16 03:38:48* Test Item Value Reference Range Interpretation Comme nts WHITE BLOOD CELL COUNT (BEAK ER) (test code = 775) 7.7 K/ L 3.5-10.5 RED BLOOD CELL COUNT (BEAKER ) (test code = 761) 2.87 M/ L 4.63-6.08 L HEMOGLOBIN (BEAKER) (test co de = 410) 7.7 GM/DL 13.7-17.5 L HEMATOCRIT (BEAKER) (test co de = 411) 24.5 % 40.1-51.0 L MEAN CORPUSCULAR VOLUME (CHERELLE KER) (test code = 753) 85 fL 79-92 MEAN CORPUSCULAR HEMOGLOBIN (BEAKER) (test code = 751) 26.8 pg 25.7-32.2 MEAN CORPUSCULAR HEMOGLOBIN CONC (BEAKER) (test code = 752) 31.4 GM/DL 32.3-36.5 L RED CELL DISTRIBUTION WIDTH (BEAKER) (test code = 412) 16.4 % 11.6-14.4 H PLATELET COUNT (BEAKER) (rudy t code = 756) 162 K/CU MM 150-450 MEAN PLATELET VOLUME (BEAKER ) (test code = 754) 9.8 fL 9.4-12.4 NUCLEATED RED BLOOD CELLS (BEAKER) (test code = 413) 0 /100 WBC 0-0 NEUTROPHILS RELATIVE PERCENT (BEAKER) (test code = 429) 60 % LYMPHOCYTES RELATIVE PERCENT (BEAKER) (test code = 430) 19 % MONOCYTES RELATIVE PERCENT (BEAKER) (test code = 431) 17 % EOSINOPHILS RELATIVE PERCENT (BEAKER) (test code = 432) 3 % BASOPHILS RELATIVE PERCENT (BEAKER) (test code = 437) 1 % NEUTROPHILS ABSOLUTE COUNT (BEAKER) (test code = 670) 4.67 K/ L 1.78-5.38 LYMPHOCYTES ABSOLUTE COUNT (BEAKER) (test code = 414) 1.46 K/ L 1.32-3.57 MONOCYTES ABSOLUTE COUNT (BE GUZMAN) (test code = 415) 1.32 K/ L 0.30-0.82 H EOSINOPHILS ABSOLUTE COUNT (BEAKER) (test code = 416) 0.22 K/ L 0.04-0.54 BASOPHILS ABSOLUTE COUNT (BE GUZMAN) (test code = 417) 0.04 K/ L 0.01-0.08 IMMATURE GRANULOCYTES-RELATI VE PERCENT (BEAKER) (test code = 2801) 0.40 % 0.00-1.00 POCT-GLUCOSE [id number] 03:36:56* Test Item Value Reference Range Interpretation Comme nts POC-GLUCOSE METER (BEAKER) (test code = 1538) 99 mg/dL 70-110 : TESTED AT [facility] [address] [facility], [address]: Heel Seam Rubber/Maintainer Operator ID = [id number] for Pham Che POCT-GLUCOSE [id number] 17:54:36* Test Item Value Reference Range Interpretation Comme nts POC-GLUCOSE METER (BEAKER) (test code = 1538) 105 mg/dL 70-110 : TESTED AT [facility] [address] [facility], [address]: Heel Seam Rubber/Maintainer Operator ID = [id number] for HIRSCH, JV Drug Test, General Toxicology, [id number] 15:31:00* Test Item Value Reference Range Interpretation Comments Drug Test,Genrl Tox,U (test code = 15413-9) see note The following co mpounds were detected: Cotinine (Nicotine Metabolite) Acetaminophen Caffeine Trazodone Oxazepam Lorazepam For a list of compounds and limits of detection go to:http://education.AudienceScience.LockerDome/faq/SCC200 Acetone(Quest) (test code = 5570-7) None Detected Methanol(Quest) (test code = 5694-5) None Detected ISOPROPANOL (test code = 5670-5) None Detected ETHANOL (test code = 5644-0) None Detected Volatile Limit of De tection: 5 mg/dL This test was developed and its analytical performancecharacteristics have been determined by [facility] [place], [place]. It hasnot been cleared or approved by the U.S. Food and DrugAdministration. This assay has been validated pursuantto the CLIA regulations and is used for clinicalpurposes. TERESA (test code = TERESA) [id number] [facility] [id number] 14:31:07* Test Item Value Reference Range Interpretation Comme nts MAGNESIUM (BEAKER) (test cod e = 627) 2.2 mg/dL 1.6-2.6 [id number] 14:31:07* Test Item Value Reference Range Interpretation Comme nts POTASSIUM (BEAKER) (test cod e = 379) 4.0 meq/L 3.5-4.5 XR ABDOMEN/KUB 1 VIEW [id number] 13:34:18 [facility] : 1965 Sex: MXR ABDOMEN/KUB 1 VIEW PORTABLECLINICAL INDICATION: Abdominal distension COMPARISON: NoneTECHNIQUE: Single, frontal radiograph of the abdomen.FINDINGS:Feeding tube tip overlies the stomach.Gaseous distention of multiple loops of small bowel throughout theabdomen concerning for ileus.Evaluation for free air is limited by portable supine technique. Withinthese limitations, no free air is identified. Electronically Signed By: Rivka Scott12/15/2023 13:36 CDTWorkstation Name: [id number] 11:52:49* Test Item Value Reference Range Interpretation Comme nts POC-GLUCOSE METER (BEAKER) (test code = 1538) 109 mg/dL 70-110 : TESTED AT [facility] [address] [facility], [address]: Heel Seam Rubber/Maintainer Operator ID = [id number] for JV HIRSCH XR CHEST 1 VIEW PORTABLE / [id number] 10:14:14 [facility] : 1965 Sex: MXR CHEST 1 VIEW PORTABLE / BEDSIDEINDICATION: IntubatedCOMPARISON: Prior day's examFINDINGS: Portable frontal view of the chest. IMPRESSION:Support Lines: ET tube tip is 5 cm superior to the elicia. PICC tipoverlies the atriocaval junction. Feeding tube descends below thediaphragm.Lungs and pleura: Smallright effusion and adjacent atelectasis. Centralvascular congestion persists. No significant pneumothorax.Heart and mediastinum: Stable contours. Stable surgical changes.Additional findings: None.Electronically Signed By: Rivka Scott12/15/2023 10:16 CDTWorkstation Name: [id number] METER 2023-12-15 07:25:24* Test Item Value Reference Range Interpretation Comme nts POC-GLUCOSE METER (BEAKER) (test code = 1538) 122 mg/dL 70-110 H : Notified RN/MD : TESTED AT [address], [address]: Heel Seam Rubber/Maintainer Operator ID = [id number] for Tracey Demarco BASIC METABOLIC [id number] 05:52:33* Test Item Value Reference Range Interpretation Comme nts SODIUM (BEAKER) (test code = 381) 140 meq/L 136-145 POTASSIUM (BEAKER) (test code = 379) 3.5 meq/L 3.5-5.1 CHLORIDE (BEAKER) (test code = 382) 110 meq/L 98-107 H CO2 (BEAKER) (test code = 355) 23 meq/L 22-29 BLOOD UREA NITROGEN (BEAKER) (test code = 354) 17 mg/dL 7-21 CREATININE (BEAKER) (test code = 358) 0.80 mg/dL 0.57-1.25 GLUCOSE RANDOM (BEAKER) (test code = 652) 115 mg/dL 70-105 H CALCIUM (BEAKER) (test code = 697) 8.3 mg/dL 8.4-10.2 L EGFR (BEAKER) (test code = 1092) 102 mL/min/1.73 sq m Interpretation of eG FR values Stage Description Result G1 Normal or high >=90 G2 Mildly decreased 60-89 G3a Mildly to moderately 45-59 G3b Moderately to severely 30-44 G4 Severly decreased 15-29 G5 Kidney failure <15Reported eGFR is based on the CKD-EPI 2020 equation that does not use a race coefficientEstimated GFR is not as accurate as Creatinine Clearance in predicting glomerular filtration rate. Estimated GFR is not applicable for dialysis patients [id number] 05:52:33* Test Item Value Reference Range Interpretation Comme nts MAGNESIUM (BEAKER) (test cod e = 627) 1.9 mg/dL 1.6-2.6 [id number] 05:52:33* Test Item Value Reference Range Interpretation Comme nts PHOSPHORUS (BEAKER) (test co de = 604) 2.9 mg/dL 2.3-4.7 (CELLAVISION MANUAL DIFF)2023-12-15 05:15:39* Test Item Value Reference Range Interpretation Comme nts NEUTROPHILS - REL (CELLAVISION)(BEAKER) (test code = 2816) 85 % LYMPHOCYTES - REL (CELLAVISION)(BEAKER) (test code = 2817) 7 % MONOCYTES - REL (CELLAVISION)(BEAKER) (test code = 2818) 3 % EOSINOPHILS - REL (CELLAVISION)(BEAKER) (test code = 2819) 5 % NEUTROPHILS - ABS (CELLAVISION)(BEAKER) (test code = 2830) 8.08 K/ul 1.78-5.38 H LYMPHOCYTES - ABS (CELLAVISION)(BEAKER) (test code = 2831) 0.67 K/ul 1.32-3.57 L MONOCYTES - ABS (CELLAVISION)(BEAKER) (test code = 2832) 0.29 K/uL 0.30-0.82 L EOSINOPHILS - ABS (CELLAVISION)(BEAKER) (test code = 2834) 0.48 K/uL 0.04-0.54 TOTAL COUNTED (BEAKER) (test code = 1351) 100 WBC MORPHOLOGY (BEAKER) (rudy t code = 487) Normal PLT MORPHOLOGY (BEAKER) (rudy t code = 486) Normal ANISOCYTOSIS (BEAKER) (test code = 961) 1+ few MACROCYTES (BEAKER) (test co de = 964) 1+ few POIKILOCYTES (BEAKER) (test code = 966) 1+ few OVALOCYTES (BEAKER) (test co de = 477) 1+ few ARTIFACT (CELLAVISION)(BEAKE R) (test code = 3432) Present PLATELET CONCENTRATION (CELLAVISION)(BEAKER) (test code = 3438) Decreased Heel Seam Rubber ID - Jessica OverholtUser comments: Slide comments:CBC W/PLT COUNT & AUTO [id number] 05:15:38* Test Item Value Reference Range Interpretation Comme nts WHITE BLOOD CELL COUNT (BEAK ER) (test code = 775) 9.5 K/ L 3.5-10.5 RED BLOOD CELL COUNT (BEAKER ) (test code = 761) 2.85 M/ L 4.63-6.08 L HEMOGLOBIN (BEAKER) (test co de = 410) 7.7 GM/DL 13.7-17.5 L HEMATOCRIT (BEAKER) (test co de = 411) 24.5 % 40.1-51.0 L MEAN CORPUSCULAR VOLUME (CHERELLE KER) (test code = 753) 86 fL 79-92 MEAN CORPUSCULAR HEMOGLOBIN (BEAKER) (test code = 751) 27.0 pg 25.7-32.2 MEAN CORPUSCULAR HEMOGLOBIN CONC (BEAKER) (test code = 752) 31.4 GM/DL 32.3-36.5 L RED CELL DISTRIBUTION WIDTH (BEAKER) (test code = 412) 16.5 % 11.6-14.4 H PLATELET COUNT (BEAKER) (rudy t code = 756) 133 K/CU MM 150-450 L MEAN PLATELET VOLUME (BEAKER ) (test code = 754) 10.3 fL 9.4-12.4 NUCLEATED RED BLOOD CELLS (BEAKER) (test code = 413) 0 /100 WBC 0-0 PROTHROMBIN [id number] 03:37:35* Test Item Value Reference Range Interpretation Comme nts PROTIME (BEAKER) (test code = 759) 15.1 seconds 11.9-14.2 H INR (BEAKER) (test code = 370) 1.19 <=5.90 RECOMMENDED COUMADIN/WARFARIN INR THERAPY RANGESSTANDARD DOSE: 2.0 - 3.0 Includes: PROPHYLAXIS for venous thrombosis, systemic embolization; TREATMENT for venous thrombosis and/or pulmonary embolus.HIGH RISK: Target INR is 2.5-3.5 for patients with mechanical heart valves.POCT-GLUCOSE [id number] 23:10:37 * Test Item Value Reference Range Interpretation Comme nts POC-GLUCOSE METER (BEAKER) (test code = 1538) 118 mg/dL 70-110 H : Notified RN/MD : TESTED AT [address], [address]: Heel Seam Rubber/Maintainer Operator ID = [id number] for Tracey Demarco VANCOMYCIN LEVEL, [id number] 21:08:21* Test Item Value Reference Range Interpretation Comme nts VANCOMYCIN TROUGH (BEAKER) ( test code = 522) 12.5 ug/mL 10.0-20.0 POCT-GLUCOSE [id number] 17:20:27* Test Item Value Reference Range Interpretation Comme nts POC-GLUCOSE METER (BEAKER) (test code = 1538) 84 mg/dL 70-110 : TESTED AT [place] [id number] [facility], [address]: Heel Seam Rubber/Maintainer Operator ID = [id number] for Maura Saucedo LACTIC ACID, [id number] 15:30:52* Test Item Value Reference Range Interpretation Comme nts LACTATE BLOOD VENOUS (2) (BE GUZMAN) (test code = 2872) 1.86 mmol/L 0.50-2.00 POCT-GLUCOSE [id number] 14:35:09* Test Item Value Reference Range Interpretation Comme nts POC-GLUCOSE METER (BEAKER) (test code = 1538) 100 mg/dL 70-110 : TESTED AT [facility] [address] [facility], [address]: Heel Seam Rubber/Maintainer Operator ID = [id number] for Jewel Culp MR BRAIN WITH & WITHOUT IV [id number] 14:07:35 [facility] : 1965 Sex: MMRI Brain with and without contrastCLINICAL HISTORY: Seizure, new-onset, no history of traumaTechnique: Multiplanar, multisequence MRI images of the brain obtainedwith and without IV contrast.Comparisons: NoneFindings:There is no abnormal intracranial enhancement or mass. Nonspecific [id number] hyperintensities statistically likely representing chronicmicroangiopathic ischemic changes present. There is noevidence of acuteinfarct or hemorrhage. Mild generalized brain parenchymal volume loss.There are noextra-axial fluid collections. The craniocervical junctionis preserved. The major intracranial flow-voids appear patent. Bilateraltrace mastoid effusions.IMPRESSION:Involutional and chronic microvascular ischemic changes.No evidence of acute infarct, hemorrhage, hydrocephalus, or mass.Electronically Signed By: Lobito Lux12/14/2023 14:09 CDTWorkstation Name: [id number] CHEST 1 VIEW PORTABLE / [id number] 09:09:09[facility] : 1965 Sex: MXR CHEST 1 VIEW PORTABLE / BEDSIDEINDICATION: IntubatedCOMPARISON: Prior day's examFINDINGS: Portable frontal view of the chest. IMPRESSION:Support Lines: ET tube tip is 5 cm superior to the elicia. PICC tipoverlies the atriocaval junction. Feeding tube descends below thediaphragm.Lungs and pleura: Smallright effusion and adjacent atelectasis. Centralvascular congestion persists. No significant pneumothorax.Heart and mediastinum: Stable contours. Stable surgical changes.Additional findings: None.Electronically Signed By: Rivka Scott12/14/2023 09:11 CDTWorkstation Name: [id number] gas, arterial 2023-12-14 07:27:12* Test Item Value Reference Range Interpretation Comme nts pH, Arterial (test code = 2744-1) 7.43 7.35-7.45 pCO2, Arterial (test code = 2018-) 34 See_Comment L [Automated messa ge] The system which generated this result transmitted reference range: 35 - 45 mm Hg. The reference range was not used to interpret this result as normal/abnormal. pO2, Arterial (test code = 2703-7) 138 See_Comment H [Automated messa ge] The system which generated this result transmitted reference range: 80 - 90 mm Hg. The reference range was not used to interpret this result as normal/abnormal. O2 Sat, Arterial (test code = 2708-6) 98.9 % 96.0-97.0 H HCO3, Arterial (test code = 1960-4) 22 mmol/L 21-29 Base Excess, Arterial (test code = 1925-7) -2.4 mmol/L -2.0-3.0 L Patient Temperature (test code = 8310-5) 36.5 FIO2 (test code = 1819) 30.0 Lab Interpretation (test code = 63257-2) Abnormal [facility] CenterBL[facility], [id number] 07:27:12* Test Item Value Reference Range Interpretation Comme nts PH ARTERIAL (BEAKER) (test c ode = 383) 7.43 7.35-7.45 PCO2 ARTERIAL (BEAKER) (test code = 384) 34 mm Hg 35-45 L PO2 ARTERIAL (BEAKER) (test code = 385) 138 mm Hg 80-90 H O2 SATURATION ARTERIAL (BEAK ER) (test code = 386) 98.9 % 96.0-97.0 H HCO3 ARTERIAL (BEAKER) (test code = 388) 22 mmol/L 21-29 BASE EXCESS ARTERIAL (BEAKER ) (test code = 387) -2.4 mmol/L -2.0-3.0 L PATIENT TEMPERATURE (BEAKER) (test code = 1818) 36.5 FIO2 (BEAKER) (test code = 1819) 30.0 POCT-GLUCOSE [id number] 06:53:46* Test Item Value Reference Range Interpretation Comme nts POC-GLUCOSE METER (BEAKER) (test code = 1538) 145 mg/dL 70-110 H : Notified RN/MD : TESTED AT [address], [address]: Heel Seam Rubber/Maintainer Operator ID = [id number] for Tracey Demarco BASIC METABOLIC [id number] 05:41:31* Test Item Value Reference Range Interpretation Comme nts SODIUM (BEAKER) (test code = 381) 139 meq/L 136-145 POTASSIUM (BEAKER) (test code = 379) 3.8 meq/L 3.5-4.5 CHLORIDE (BEAKER) (test code = 382) 111 meq/L 98-107 H CO2 (BEAKER) (test code = 355) 21 meq/L 22-29 L BLOOD UREA NITROGEN (BEAKER) (test code = 354) 16 mg/dL 8-26 CREATININE (BEAKER) (test code = 358) 0.85 mg/dL 0.72-1.25 GLUCOSE RANDOM (BEAKER) (test code = 652) 152 mg/dL 70-105 H CALCIUM (BEAKER) (test code = 697) 8.0 mg/dL 8.4-10.2 L EGFR (BEAKER) (test code = 1092) 101 mL/min/1.73 sq m Interpretation of eG FR values Stage Description Result G1 Normal or high >=90 G2 Mildly decreased 60-89 G3a Mildly to moderately 45-59 G3b Moderately to severely 30-44 G4 Severly decreased 15-29 G5 Kidney failure <15Reported eGFR is based on the CKD-EPI 2020 equation that does not use a race coefficientEstimated GFR is not as accurate as Creatinine Clearance in predicting glomerular filtration rate. Estimated GFR is not applicable for dialysis patients [id number] 05:41:31* Test Item Value Reference Range Interpretation Comme nts MAGNESIUM (BEAKER) (test cod e = 627) 1.8 mg/dL 1.6-2.6 [id number] 05:41:31* Test Item Value Reference Range Interpretation Comme nts PHOSPHORUS (BEAKER) (test co de = 604) 3.8 mg/dL 2.3-4.7 PROTHROMBIN [id number] 05:33:31* Test Item Value Reference Range Interpretation Comme nts PROTIME (BEAKER) (test code = 759) 16.3 seconds 11.9-14.2 H INR (BEAKER) (test code = 370) 1.32 <=5.90 RECOMMENDED COUMADIN/WARFARIN INR THERAPY RANGESSTANDARD DOSE: 2.0 - 3.0 Includes: PROPHYLAXIS for venous thrombosis, systemic embolization; TREATMENT for venous thrombosis and/or pulmonary embolus.HIGH RISK: Target INR is 2.5-3.5 for patients with mechanical heart valves.CBC W/PLT COUNT & AUTO DIFFERENTIAL 2023-12-14 05:24:59* Test Item Value Reference Range Interpretation Comme nts WHITE BLOOD CELL COUNT (BEAK ER) (test code = 775) 10.4 K/ L 3.5-10.5 RED BLOOD CELL COUNT (BEAKER ) (test code = 761) 3.01 M/ L 4.63-6.08 L HEMOGLOBIN (BEAKER) (test co de = 410) 8.2 GM/DL 13.7-17.5 L HEMATOCRIT (BEAKER) (test co de = 411) 25.9 % 40.1-51.0 L MEAN CORPUSCULAR VOLUME (CHERELLE KER) (test code = 753) 86 fL 79-92 MEAN CORPUSCULAR HEMOGLOBIN (BEAKER) (test code = 751) 27.2 pg 25.7-32.2 MEAN CORPUSCULAR HEMOGLOBIN CONC (BEAKER) (test code = 752) 31.7 GM/DL 32.3-36.5 L RED CELL DISTRIBUTION WIDTH (BEAKER) (test code = 412) 16.4 % 11.6-14.4 H PLATELET COUNT (BEAKER) (rudy t code = 756) 141 K/CU MM 150-450 L MEAN PLATELET VOLUME (BEAKER ) (test code = 754) 9.4 fL 9.4-12.4 NUCLEATED RED BLOOD CELLS (BEAKER) (test code = 413) 0 /100 WBC 0-0 NEUTROPHILS RELATIVE PERCENT (BEAKER) (test code = 429) 76 % LYMPHOCYTES RELATIVE PERCENT (BEAKER) (test code = 430) 14 % MONOCYTES RELATIVE PERCENT (BEAKER) (test code = 431) 8 % EOSINOPHILS RELATIVE PERCENT (BEAKER) (test code = 432) 1 % BASOPHILS RELATIVE PERCENT (BEAKER) (test code = 437) 0 % NEUTROPHILS ABSOLUTE COUNT (BEAKER) (test code = 670) 7.88 K/ L 1.78-5.38 H LYMPHOCYTES ABSOLUTE COUNT (BEAKER) (test code = 414) 1.42 K/ L 1.32-3.57 MONOCYTES ABSOLUTE COUNT (BE GUZMAN) (test code = 415) 0.85 K/ L 0.30-0.82 H EOSINOPHILS ABSOLUTE COUNT (BEAKER) (test code = 416) 0.13 K/ L 0.04-0.54 BASOPHILS ABSOLUTE COUNT (BE GUZMAN) (test code = 417) 0.03 K/ L 0.01-0.08 IMMATURE GRANULOCYTES-RELATI VE PERCENT (BEAKER) (test code = 2801) 0.50 % 0.00-1.00 POCT-GLUCOSE [id number] 01:12:24* Test Item Value Reference Range Interpretation Comme nts POC-GLUCOSE METER (BEAKER) (test code = 1538) 120 mg/dL 70-110 H : Notified RN/MD : TESTED AT [address], [address]: Heel Seam Rubber/Maintainer Operator ID = [id number] for Tracey Demarco POCT-GLUCOSE [id number] 19:08:14* Test Item Value Reference Range Interpretation Comme nts POC-GLUCOSE METER (BEAKER) (test code = 1538) 105 mg/dL 70-110 : TESTED AT [place] [id number] [facility], [address]: Heel Seam Rubber/Maintainer Operator ID = [id number] for Jewel Culp Lactic Acid, [id number] 17:10:03* Test Item Value Reference Range Interpretation Comme nts Lactate, Art (test code = 2874) 2.7 mmol/L 0.5-2.0 H TERESA (test code = TERESA) Heel Seam Rubber ID - ADMIN Lab Interpretation (test code = 64945-2) [facility]normal [facility] [id number] 17:10:03* Test Item Value Reference Range Interpretation Comme nts LACTATE BLOOD ARTERIAL (2) (BEAKER) (test code = 2874) 2.7 mmol/L 0.5-2.0 H [employer] ID - ADMINBASIC METABOLIC [id number] 13:27:01* Test Item Value Reference Range Interpretation Comme nts SODIUM (BEAKER) (test code = 381) 138 meq/L 136-145 POTASSIUM (BEAKER) (test code = 379) 3.5 meq/L 3.5-5.1 CHLORIDE (BEAKER) (test code = 382) 112 meq/L 98-107 H CO2 (BEAKER) (test code = 355) 21 meq/L 22-29 L BLOOD UREA NITROGEN (BEAKER) (test code = 354) 16 mg/dL 7-21 CREATININE (BEAKER) (test code = 358) 0.99 mg/dL 0.57-1.25 GLUCOSE RANDOM (BEAKER) (test code = 652) 139 mg/dL 70-105 H CALCIUM (BEAKER) (test code = 697) 7.6 mg/dL 8.4-10.2 L EGFR (BEAKER) (test code = 1092) 89 mL/min/1.73 sq m Interpretation of eG FR values Stage Description Result G1 Normal or high >=90 G2 Mildly decreased 60-89 G3a Mildly to moderately 45-59 G3b Moderately to severely 30-44 G4 Severly decreased 15-29 G5 Kidney failure <15Reported eGFR is based on the CKD-EPI 202 equation that does not use a race coefficientEstimated GFR is not as accurate as Creatinine Clearance in predicting glomerular filtration rate. Estimated GFR is not applicable for dialysis patients Heel Se[employer] Rubber ID - ADMINPOCT-GLUCOSE [id number] 13:06:36* Test Item Value Reference Range Interpretation Comme nts POC-GLUCOSE METER (BEAKER) (test code = 1538) 137 mg/dL 70-110 H : TESTED AT [facility] [address] [facility] [place] [place], [address]: Heel Se[employer] Rubber/Maintainer Operator ID = [id number] for Jewel Culp CSF Culture + Gram [id number] 12:12:07* Test Item Value Reference Range Interpretation Comme nts Result (test code = 6463-4) No growth Gram Stain Result (test code = 664-3) No organisms seen [facility]AM [id number] 12:12:07* Test Item Value Reference Range Interpretation Comme nts CULTURE (BEAKER) (test code = 1095) No growth GRAM STAIN RESULT (BEAKER) (test code = 1123) No WBCs GRAM STAIN RESULT (BEAKER) (test code = 72723) No organisms seen Urinalysis w/Microscopic + Reflex to [id number] 11:42:57* Test Item Value Reference Range Interpretation Comme nts Color, UA (test code = 5778-6) Dark Yellow Clarity, UA (test code = 5767-9) Clear Specific Sallis, UA (test code = 5811-5) 1.032 1.001-1.035 pH, UA (test code = 5803-2) 6.5 5.0-8.0 Protein, UA (test code = 05017-5) 70 mg/dL Negative A Glucose, UA (test code = 365) Negative Negative Ketones, UA (test code = 2514-8) Negative Negative Bilirubin, UA (test code = 54018-3) Positive Negative A Blood, UA (test code = 11430-4) Moderate Negative A Nitrite, UA (test code = 5802-4) Negative Negative Leukocytes, UA (test code = 5799-2) Negative Negative Urobilinogen, UA (test code = 07222-6) 12 0.2-1.0 H RBC, UA (test code = 41994-4) 49 See_Comment [Automated message] The system which generated this result transmitted reference range: /HPF. The reference range was not used to interpret this result as normal/abnormal. WBC, UA (test code = 5821-4) 4 See_Comment [Automated message] The system which generated this result transmitted reference range: /HPF. The reference range was not used to interpret this result as normal/abnormal. Mucus (test code = 8247-9) Occasional Hyaline Casts, UA (test code = 46927-9) 1 See_Comment [Automated message] The system which generated this result transmitted reference range: /LPF. The reference range was not used to interpret this result as normal/abnormal. Specimen Source (test code = 2795) TERESA (test code = TERESA) [employer] ID - tech Lab Interpretation (test code = 27865-0) [facility]normal [facility] URINE [id number] 11:42:57 * Test Item Value Reference Range Interpretation Comme nts COLOR (BEAKER) (test code = 470) Dark Yellow CLARITY (BEAKER) (test code = 469) Clear SPECIFIC GRAVITY UA (BEAKER) (test code = 468) 1.032 1.001-1.035 PH UA (BEAKER) (test code = 467) 6.5 5.0-8.0 PROTEIN UA (BEAKER) (test co de = 464) 70 mg/dL Negative A GLUCOSE UA (BEAKER) (test co de = 365) Negative Negative KETONES UA (BEAKER) (test co de = 371) Negative Negative BILIRUBIN UA (BEAKER) (test code = 462) Positive Negative A BLOOD UA (BEAKER) (test code = 461) Moderate Negative A NITRITE UA (BEAKER) (test co de = 465) Negative Negative LEUKOCYTE ESTERASE UA (BEAKE R) (test code = 466) Negative Negative UROBILINOGEN UA (BEAKER) (te st code = 463) 12 0.2-1.0 H RBC UA (BEAKER) (test code = 519) 49 /HPF WBC UA (BEAKER) (test code = 520) 4 /HPF MUCUS (BEAKER) (test code = 1574) Occasional HYALINE CASTS (BEAKER) (test code = 514) 1 /LPF SOURCE(BEAKER) (test code = 2795) [employer] ID - techLACTIC ACID, [id number] 11:07:42* Test Item Value Reference Range Interpretation Comme nts LACTATE BLOOD ARTERIAL (2) (BEAKER) (test code = 2874) 2.2 mmol/L 0.5-2.0 H XR CHEST 1 VIEW PORTABLE / [id number] 06:58:08 [facility] : 1965 Sex: MXR CHEST 1 VIEW PORTABLE / BEDSIDEINDICATION: IntubatedCOMPARISON: Prior day's examFINDINGS: Portable frontal view of the chest. IMPRESSION:Support Lines: ET tube tip is 5 cm superior to the elicia. PICC tipoverlies the atriocaval junction. Lungs and pleura: Small right effusion and adjacent atelectasis.Centralvascular congestion persists. No significant pneumothorax.Heart and mediastinum: Stable contours. Stable surgical changes.Additional findings: None.Electronically Signed By: Rivka Scott12/13/2023 07:00 CDTWorkstation Name: [id number] GAS, ARTERIAL 2023-12-13 06:19:53* Test Item Value Reference Range Interpretation Comme nts PH ARTERIAL (BEAKER) (test c ode = 383) 7.48 7.35-7.45 H PCO2 ARTERIAL (BEAKER) (test code = 384) 28 mm Hg 35-45 L PO2 ARTERIAL (BEAKER) (test code = 385) 164 mm Hg 80-90 H O2 SATURATION ARTERIAL (BEAK ER) (test code = 386) 99.2 % 96.0-97.0 H HCO3 ARTERIAL (BEAKER) (test code = 388) 21 mmol/L 21-29 BASE EXCESS ARTERIAL (BEAKER ) (test code = 387) -2.1 mmol/L -2.0-3.0 L PATIENT TEMPERATURE (BEAKER) (test code = 1818) 37.2 FIO2 (BEAKER) (test code = 1819) 30.0 BASIC METABOLIC [id number] 05:30:09* Test Item Value Reference Range Interpretation Comme nts SODIUM (BEAKER) (test code = 381) 137 meq/L 136-145 POTASSIUM (BEAKER) (test code = 379) 4.3 meq/L 3.5-5.1 CHLORIDE (BEAKER) (test code = 382) 112 meq/L 98-107 H CO2 (BEAKER) (test code = 355) 19 meq/L 22-29 L BLOOD UREA NITROGEN (BEAKER) (test code = 354) 15 mg/dL 7-21 CREATININE (BEAKER) (test code = 358) 1.19 mg/dL 0.57-1.25 GLUCOSE RANDOM (BEAKER) (test code = 652) 132 mg/dL 70-105 H CALCIUM (BEAKER) (test code = 697) 8.0 mg/dL 8.4-10.2 L EGFR (BEAKER) (test code = 1092) 71 mL/min/1.73 sq m Interpretation of eG FR values Stage Description Result G1 Normal or high >=90 G2 Mildly decreased 60-89 G3a Mildly to moderately 45-59 G3b Moderately to severely 30-44 G4 Severly decreased 15-29 G5 Kidney failure <15Reported eGFR is based on the CKD-EPI 2020 equation that does not use a race coefficientEstimated GFR is not as accurate as Creatinine Clearance in predicting glomerular filtration rate. Estimated GFR is not applicable for dialysis patients [employer] ID - [id number] 05:30:09* Test Item Value Reference Range Interpretation Comme nts MAGNESIUM (BEAKER) (test cod e = 627) 2.0 mg/dL 1.6-2.6 [employer] ID - [id number] 05:30:09* Test Item Value Reference Range Interpretation Comme nts PHOSPHORUS (BEAKER) (test co de = 604) 3.5 mg/dL 2.3-4.7 [employer] ID - ADMINPROTHROMBIN TIME/[id number] 04:36:40* Test Item Value Reference Range Interpretation Comme nts PROTIME (BEAKER) (test code = 759) 17.6 seconds 11.9-14.2 H INR (BEAKER) (test code = 370) 1.44 <=5.90 RECOMMENDED COUMADIN/WARFARIN INR THERAPY RANGESSTANDARD DOSE: 2.0 - 3.0 Includes: PROPHYLAXIS for venous thrombosis, systemic embolization; TREATMENT for venous thrombosis and/or pulmonary embolus.HIGH RISK: Target INR is 2.5-3.5 for patients with mechanical heart valves.CBC W/PLT COUNT & AUTO DIFFERENTIAL 2023-12-13 04:31:43* Test Item Value Reference Range Interpretation Comme nts WHITE BLOOD CELL COUNT (BEAK ER) (test code = 775) 15.7 K/ L 3.5-10.5 H RED BLOOD CELL COUNT (BEAKER ) (test code = 761) 3.23 M/ L 4.63-6.08 L HEMOGLOBIN (BEAKER) (test co de = 410) 8.6 GM/DL 13.7-17.5 L HEMATOCRIT (BEAKER) (test co de = 411) 27.3 % 40.1-51.0 L MEAN CORPUSCULAR VOLUME (CHERELLE KER) (test code = 753) 85 fL 79-92 MEAN CORPUSCULAR HEMOGLOBIN (BEAKER) (test code = 751) 26.6 pg 25.7-32.2 MEAN CORPUSCULAR HEMOGLOBIN CONC (BEAKER) (test code = 752) 31.5 GM/DL 32.3-36.5 L RED CELL DISTRIBUTION WIDTH (BEAKER) (test code = 412) 16.0 % 11.6-14.4 H PLATELET COUNT (BEAKER) (rudy t code = 756) 180 K/CU MM 150-450 MEAN PLATELET VOLUME (BEAKER ) (test code = 754) 10.6 fL 9.4-12.4 NUCLEATED RED BLOOD CELLS (BEAKER) (test code = 413) 0 /100 WBC 0-0 NEUTROPHILS RELATIVE PERCENT (BEAKER) (test code = 429) 77 % LYMPHOCYTES RELATIVE PERCENT (BEAKER) (test code = 430) 14 % MONOCYTES RELATIVE PERCENT (BEAKER) (test code = 431) 8 % EOSINOPHILS RELATIVE PERCENT (BEAKER) (test code = 432) 0 % BASOPHILS RELATIVE PERCENT (BEAKER) (test code = 437) 0 % NEUTROPHILS ABSOLUTE COUNT (BEAKER) (test code = 670) 12.11 K/ L 1.78-5.38 H LYMPHOCYTES ABSOLUTE COUNT (BEAKER) (test code = 414) 2.23 K/ L 1.32-3.57 MONOCYTES ABSOLUTE COUNT (BE GUZMAN) (test code = 415) 1.18 K/ L 0.30-0.82 H EOSINOPHILS ABSOLUTE COUNT (BEAKER) (test code = 416) 0.01 K/ L 0.04-0.54 L BASOPHILS ABSOLUTE COUNT (BE GUZMAN) (test code = 417) 0.07 K/ L 0.01-0.08 IMMATURE GRANULOCYTES-RELATI VE PERCENT (BEAKER) (test code = 2801) 0.50 % 0.00-1.00 POCT-GLUCOSE [id number] 23:53:19* Test Item Value Reference Range Interpretation Comme [facility] POC-GLUCOSE METER (ALCIDES) (test code = 1538) 114 mg/dL 70-110 H : TESTED AT [facility] [address] [facility] [place], [address]: Heel Seam Rubber/Maintainer Operator ID = [id number] for Betsy Franco XR ABDOMEN/KUB 1 VIEW [id number] 21:04:34 [facility] : 1965 Sex: MTECHNIQUE: Supine views of the abdomen.INDICATION: Corpak readjustment.COMPARISON: Exam from 2 hours prior.FINDINGS/IMPRESSION:No significant change with the feeding tube terminating within theproximal stomach. Bowel gas pattern is nonobstructive.Electronically Signed By: Len Jack12/12/2023 21:06 CDTWo rkstation Name: [id number] 18:04:29* Test Item Value Reference Range Interpretation Comme [facility] Case Report (test code = 104) Medical Cytology Report Case: [id number] Authorizing Provider: Lc Washburn Collected: 12/10/2023 01:31 PM Ordering Location: [place] [address] ICU Received: 12/11/2023 08:26 AM Pathologist: Enrrique Smith MD Specimen: CSF, tube 3 DIAGNOSIS (test code = 3220) [id number] FuZzEwMzNcZnRuYmpcdWMx ZGtkfdAaLTomvHdsHEM7CL YtCY8jrBboaFv7nVbwPRCu yrX3aHCmKAdbo7tmBAJ0f7 nbwwljWZKfWYquCr9jdQTb rFkwPiUlC5Adw9JqLCs6vR blQjQaOOGfJRi5oM59FFNv lJ3elOKtHMg9USOrdYZxpz WvMzOhKRXhxJKqdTF4BALo NL8xofkyIDmpHMqkGTZmtc I8CGVbeAIrE7AyJSTzKN2r ljmvBZS4ZJueGRJyDRY7Fd QkLGIbs7Jwmun7RhCclXRl ZFxwbGFpblxmMVxmczIwIE SQWrUWFg7EBPmGEJreXllU FPJuIGLCHA8ESRjMOfg7RQ WcubTzQTCfAL9HC3UJAJUI MXNAUkGKXOnII30KQuOVJP BhciAgICAtIFJhcmUgcmVk GVKaz01kFWMjtMlsCQFeMC EvAGykfcH1eZEgySfisSIi VGDiqt45AIY2PkUrp9W4SF W0AQXcJZVuu7alJSHxsFFk ZzEwMzNcZnRuYmpcdWMxXG WsCtMgc0rdc290sTRne0qj RCPkXqK9bKFhZHTqaJJsD7 34FMGeLMmns3poj5EsZZWy yOPhu5M2STBXwobkdDa3zC edZ04qv0N6VejqM1byRJLy YQUcK8ZjBL9yWWMiVzs7DA P0KFH1JCEzPJDoV0EmNK9s ORPntIJbMPe1o9khuLbgUW JwECC1x7oqXKbhzwOtJR8r xq7dkEa7q6vuwmSrDWKfPP JioBDNZCFqM1AfhPmlYs9d fAm1lHnyUadpUAZ0Rxi2EU 5qsj22vnu7nXawHVLcoukz GzK6QKcnOASotcraLRh1IQ qqBPLynEG1LZQjdBRzY3Kf HIYbDW7jgtm4ENP7YKerQB CePzS7ADWhsAZqACKlmHsl ZJnef272PCZ2OnPaTZ6jN8 Rej7X4qA5qyCIzMOHquCPq FaCqBNBloe4keWAwTHifc8 IwUPI7kpW0aLEzwNIvEEMf NkL0ZGjeWS1anp88RYYkYO O0lc4puNYpmUjwcnFowOLc JQgiK4VbPEOgc097UKOsK4 ZqOHFoo6L3jpDoRmJcRZIs oCD0qgU8OOWiWT2jjyvna0 ywDXsdMIzuOJFblaI6xzA0 TKRbpSTyB5VqxX0tJSXbYK 8vhwmej2pkKOD2VHilERNj GIW6KuOhZJWls2Mkuor9Uh Vtq3GrwZGrZQgcL79kr050 NHShlnSeV9nyrBHvlhlykA JnuhsaBQgkpoS2HNGiOQbc vliuMLBxEHezX0anEtDyBE GwzJkwJIxcv0KnJJDeHYFi JtAmkVHdMVPvWsn6ZBAbgG EqHLZtTuHrN1nrllatJiRX BOXgh6xdU5elfPFUtLQxK2 QgUGhvbmUgTGluZTogNzEz AKo6VI07WoHsWLBhac47 COMMENT (test code = 3359) w9sjdWPeILXqjFYoGLIaU1 luapYzZJUodFXqA6Uhbhjx DUttVA4tER2qxIyyjDVpxC LaHCZfRoUkm9miz875mCVh o4uyWQQYXUzaNFWQOOt9a7 ulQVJVsrpblBq0dEbiX36i i7C1YrzzO01aqKJxNST3OD GzCGEqrTHoMRJfVUW6CQVp jAHfH3jxCXKyWY9vbnjkMA nxTEbbKOZnrNN8JCVaxGZm X4KvWUFdWSpsGPByney1Eh RdLd2vvHJydObpWAuoKOAm XHBsYWluXGYxXGZzMjAgUG nkCKNmUVVqwgFeaCP9DHG9 aZGdXSXmpI6cU8KpOTCecu RpbmdzLlxwYXJccGFyIERy SoAVxLMiE11yO4DbpfU7eC OrFFJiMSMuEr92IEBxfBEw is9ewUDaTGDexd1= CPT Code(s) (test code = 5877) o0dvrBRzDGIweZFzPOSpU6 gimyTeLJZeyWHvY0Wapibq QFnjHE4iUI1wuRvbiPBmhH YdBPGmWnMsq5qxk398eDMe u0ulQGCFajeetSk4bZgwE0 7tn5Q3HhdoD73uzRHuIUP2 PSWsVDKvcOPeVVWcXIH1PP UfbVQnR9byEUKuUF0wygas KNqiLLabPKPnsMR8DZKlaA WrS1FbNLSpVJvxWAEyrfx5 XmNaDy7gpHZhtWitWHdcIZ JkXHBsYWluXGZzMjAgODgx MDhccGFyfQ== CLINICAL DATA (test code = 3350) p1dudSGfZGUtiYCeSDYyD6 podlBrUFGrxJJiY0Hqjsts MUbnPQ9uIU5ouLgloLSrlE OyGUJkCbEah9pim326mLSc x5frVNKTulwrwPd5kCtvF2 5hy5E4ZpdkL7tsWQOtZIlr GTEsGFrqrLUzQZk0JEAcqJ VydzEyMjQwXHBhcGVyaDE1 XCRvTH6oxfeoEDweIXybCX GubsH7ZKJcvQXeC5LvYXWr ON4aclrqIAW8VCltZTBpHQ D5AvJqCVUym4Cpygg2KrHi tRGzCEi6iSR2GHWqqAhbcV 0yQoWbALfpHrSoQRabeL8a Llx+TVx+y4r2sAIyI74hGF WTEQCqiVTloD6ehMDuGDUM MVRsOBPtQB7qFHrvTGYjMT 93zFFeOCWgj1NaxE3vMH2t aWVudGVkIHgxLTIpLCBhbG KrbQ0mRKhdyWynwaI0CQsa l2OixkCrBWNmxQEbk9TymL esVwQkwf8vRI4zhIQtaUGw EBcez9WidOVdAgxuIkGaob xwYXJ9 SPECIMEN SOURCE (test code = 3377) f1sxgPEyYONrvUOeARFzY1 cdnuRcXRAqeOOuV7Tzmdjd GAshTT2cSV4vhTujmBTwsR ZeGJYcUuEpz6bez025oYSi b0lnVRMWjzgkbQr2fEacQ3 9zt9G4TntyG81uaQJmCML4 MQAeLXTadEMnCWAnDTY0ZO ZgfPXzQ8lwCXMdPJ4aubfd TNllDBiwDJIsqEF2HZOceI JmG5BbIHOrRAazLCLfcnr1 OoIlKp6prIAkhCqaDRttQC NgSTLpLPinAOAvMxBmX6FC RAEGK6JHTE9TEXAZZLJVIV xwYXJccGFyfQ== GROSS DESCRIPTION (test code = 6319149706) o5qtdYLlFQCkuROEKKG4WL YpHP8mgMeowUk1oWzyUUGu aiI7qFPgHXzlu5enRDJ7h3 vedwBHIghhCWLaVW4bDQvb DINhZI0sZfGcCKJvPgBfZB BhcGVydzEyMjQwXHBhcGVy aCM0KOWgBL3wepavFBeeQF bdPIEcvkK7DJNzxJOgU5Sk GWKhCC8thhswWYQ7MCXPEm pvJk3jkUMsrDTQPmxhMhQa ZmNoYXJzZXQwXGZuaWwgQX HgGDr2iZ3Xy0rvDbaaK4xs xaIclOCyEk0fqCVIJqFPLV 3uCEPurcddM687WJhpj4Do pYUuCEw2TLxsOYKwT1BdX8 QgXFxzZyBcXGlkIDUxMDAw DEdzVXHtG1FOBTQyKvQwIF G4ViyhKKf6PWa1CNDMBAYb HAUzITBmCAp9BMe5CIvkep zwHDd2MGXrMFfwoEBhJO8d yEpoSjvwbHmnh4XrjJOvIV NnIFxcaWQgNTEwMDIgXFxk FrWTTgXwNlFwWRSdFUH0Dc CySYw8JQlsO4KCWJQjSJXp GSS9SQG2VwM6HMa2HBQRVy 8tYES8PUeyYXShOWA5CCBd DXqqfGQuKKhgn4FsPjWtAZ ZrIRxahdQ2KXEyxvYfVGht bXcdiY8qPzDaPrMqShKKPc WRR8MdPJV5IlQkW9fnbDCk aFxmMlxwYXIgDQpccGFyZC ANClxwbGFpblxsdHJjaFxm ndQxHFQkbOZRXXV1JV9wBO DHOygakFIzOFIvj0ZmQPiv cGljWHNhMzAgDQpcZjFcZn MyMCBSZWNlaXZlZCAxLjUg vOibU4crQHVaY17rv4IuOG NzIGZsdWlkOyBwcmVwYXJl ZSQmBEX1jC9irVpzzuSOBz qzsPqfGrTiyKPbTxI9YLKj oVXdKHZ0XE6rnLfmQNJiF5 HrN7SvflR6TXDjpaSWIqjs LXKzXT7IKZVwGZLlOcYzNC p9 MICROSCOPIC DESCRIPTION (test code = 3371) k0mutDDdSCPbcMZiGANtL8 evhzWhLMPrkJKaK4Msupdw NZeaOK4vFO8ppQkbhNDooJ FyOKZzEgQoi9cwq356sWLx r8edERFJtrhwoSn8iBciK3 3cw9C0FgeuX34cjPObBHK4 WXEfIEPnrGHfKXYmMXT7HA SlaOElK2umBKHpNK9bmlkw JDanPJvdBZWgyFD7HYThcC AmP7MlKSAcAGsgPFLoult8 QuHpHr9esLYdaIlzZUdxJI JkXHBsYWluXGZzMjAgUGVy Jg1beEOyChvoURKxeZBdKD xwYXJ9 STATEMENT OF ADEQUACY (test code = 2757) Satisfactory Gross assessment was performed at (test code = 2777) [facility], Department of Pathology, [address] [place] [address], Technical component was performed at (test code = 2778) [facility], Department of Pathology, [address] [place] [address], Professional component was performed at (test code = 2779) [facility], Department of Pathology, [address] [place] [address], [facility] 18:04:29Medical Cytology Report Case: [id number] Authorizing Provider: Lc Washburn Collected: 12/10/2023 01:31 PM Ordering Location: [place] [address] ICU Received: 12/11/2023 08:26 AM Pathologist: Enrrique Smith MD Specimen: CSF, tube 3 CEREBROSPINAL FLUID (CYTOSPINS): - NEGATIVE FOR MALIGNANCY - Rare red blood cells and few neutrophils. Signing Pathologist Direct Phone Line: [phone] signed by Enrrique Smith MD on 12/12/2023 at 6:04 PMPlease correlate with clinical findings.Dr. Mancusors with the above diagnosis.[id number] y.o. M with h/o EtOH cirrhosis, UGIB, anemia, dementia (baseline oriented x1-2), alcohol withdrawal seizures presenting from outside hospital. CEREBROSPINAL FLUIDA. CSF, tube 3Received 1.5 ml clear colorless fluid; prepared 2 cytospins Performed.[facility], Department of Pathology, [address] [place] [address], [facility], [facility] of [facility], [address] [place] [address], [facility], Department of Pathology, [address] [place] [address], NCZF-GLUCOSE [id number] 17:30:51* Test Item Value Reference Range Interpretation Comme [facility] POC-GLUCOSE METER ([employer]) (test code = 1538) 108 mg/dL 70-110 : TESTED AT [address], [address]: He[employer]ber/Maintainer Operator ID = [id number] for JOSE MARTIN FISH XR ABDOMEN/KUB 1 VIEW [id number] 16:51:11 [facility] : 1965 Sex: MAbdomen x- rayClinical Diagnosis: Enteric tube placement verificationComparison: 12/09/2023Views: Single supine view of the abdomen obtainedFINDINGS/IMPRESSION:Enteric tube noted coursing below the diaphragmwith tip turning withinleft upper quadrant expected region of the stomach.Visualized bowel gas pattern is nonobstructive. No pathologicallydilated loops of bowel are identified. No intraperitoneal free air isappreciated on this supine view examination.No acute osseous abnormality is identified.Electronically Signed By: Warner Cheng MD12/12/2023 16:53 CDTWorkstation Name: [id number] CHEST 1 VIEW PORTABLE / [id number] 16:45:48 [facility] : 1965 Sex: MCHEST, 1 VIEW.HISTORY: post PICC insertionCOMPARISON: 12/12/2023 at 0510.IMPRESSION:There is been intervalplacement of a left-sided PICC line with cathetertip turning appropriately over the cavoatrial junction. Endotrachealtube identified in stable position. Enteric tube noted coursing belowthe diaphragm. There are right greater than left lower lung zone opacities suggestiveof combination of atelectasis and small effusions. There is no evidencefor new large focal consolidation or pneumothorax.The cardiomediastinal silhouette is stable in appearance. No acuteosseous abnormality is identified.Electronically Signed By: Warner Cheng MD12/12/2023 16:47 CDTWorkstation Name: [id number] 2023-12-12 16:11:10* Test Item Value Reference Range Interpretation Comme nts PROCALCITONIN (BEAKER) (test code = 3036) 0.12 ng/mL <0.05 H SEPSIS RISK (ng/mL)Low: 0.05-0.50Intermediate: 0.51-2.00High: >=2.01POCT-GLUCOSE [id number] 12:06:58* Test Item Value Reference Range Interpretation Comme nts POC-GLUCOSE METER (ALCIDES) (test code = 1538) 96 mg/dL 70-110 : TESTED AT [facility] [address] [facility], [address]: Heel Se[employer] Rubber/Maintainer Operator ID = [id number] for JOSE MARTIN FISH PHENOBARBITAL [id number] 09:31:43* Test Item Value Reference Range Interpretation Comme nts PHENOBARBITAL LEVEL (ALCIDES) (test code = 607) 38.2 mcg/ml 15.0-40.0 XR CHEST 1 VIEW PORTABLE / [id number] 07:19:49 [facility] : 1965 Sex: MXR CHEST 1 VIEW PORTABLE / BEDSIDEINDICATION: intubatedCOMPARISON: Prior day's examFINDINGS: Portable frontal view of the chest. IMPRESSION:Support Lines: ET tube tip is 5 cm superior to the elicia. NG tubedescends below the diaphragm. Central catheter tip overlies theatriocaval junction.Lungs and pleura: Small right effusion. Hazy airspace opacities on theleft are new from prior exam.. No significant p neumothorax.Heart and mediastinum: Stable contours. Stable surgical changes.Additional findings: None. Electronically Signed By: Rivka Scott12/12/2023 07:21 CDTWorkstation Name: [id number] GAS, ARTERIAL 2023-12-12 05:35:00* Test Item Value Reference Range Interpretation Comme nts PH ARTERIAL (MIGUELAKER) (test c ode = 383) 7.48 7.35-7.45 H PCO2 ARTERIAL (BEAKER) (test code = 384) 31 mm Hg 35-45 L PO2 ARTERIAL (BEAKER) (test code = 385) 181 mm Hg 80-90 H O2 SATURATION ARTERIAL (BEAK ER) (test code = 386) 99.4 % 96.0-97.0 H HCO3 ARTERIAL (BEAKER) (test code = 388) 23 mmol/L 21-29 BASE EXCESS ARTERIAL (BEAKER ) (test code = 387) -0.7 mmol/L -2.0-3.0 PATIENT TEMPERATURE (BEAKER) (test code = 1818) 36.2 FIO2 (BEAKER) (test code = 1819) 30.0 [id number] 05:25:46* Test Item Value Reference Range Interpretation Comme nts ALBUMIN (BEAKER) (test code = 1145) 3.0 g/dL 3.5-5.0 L [employer] ID - KOFI [id number] 05:25:41* Test Item Value Reference Range Interpretation Comme nts PHOSPHORUS (BEAKER) (test co de = 604) 3.2 mg/dL 2.3-4.7 [employer] ID - KOFI WBASIC METABOLIC [id number] 05:25:40* Test Item Value Reference Range Interpretation Comme nts SODIUM (BEAKER) (test code = 381) 140 meq/L 136-145 POTASSIUM (BEAKER) (test code = 379) 3.9 meq/L 3.5-5.1 CHLORIDE (BEAKER) (test code = 382) 113 meq/L 98-107 H CO2 (BEAKER) (test code = 355) 21 meq/L 22-29 L BLOOD UREA NITROGEN (BEAKER) (test code = 354) 10 mg/dL 7-21 CREATININE (BEAKER) (test code = 358) 0.79 mg/dL 0.57-1.25 GLUCOSE RANDOM (BEAKER) (test code = 652) 107 mg/dL 70-105 H CALCIUM (BEAKER) (test code = 697) 8.2 mg/dL 8.4-10.2 L EGFR (BEAKER) (test code = 1092) 103 mL/min/1.73 sq m Interpretation of eG FR values Stage Description Result G1 Normal or high >=90 G2 Mildly decreased 60-89 G3a Mildly to moderately 45-59 G3b Moderately to severely 30-44 G4 Severly decreased 15-29 G5 Kidney failure <15Reported eGFR is based on the CKD-EPI 2020 equation that does not use a race coefficientEstimated GFR is not as accurate as Creatinine Clearance in predicting glomerular filtration rate. Estimated GFR is not applicable for dialysis patients [employer] ID - KOFI [id number] 05:25:40* Test Item Value Reference Range Interpretation Comme nts MAGNESIUM (BEAKER) (test cod e = 627) 1.8 mg/dL 1.6-2.6 [employer] ID - KOFI WPROTHROMBIN TIME/[id number] 05:20:20* Test Item Value Reference Range Interpretation Comme nts PROTIME (BEAKER) (test code = 759) 16.7 seconds 11.9-14.2 H INR (BEAKER) (test code = 370) 1.35 <=5.90 RECOMMENDED COUMADIN/WARFARIN INR THERAPY RANGESSTANDARD DOSE: 2.0 - 3.0 Includes: PROPHYLAXIS for venous thrombosis, systemic embolization; TREATMENT for venous thrombosis and/or pulmonary embolus.HIGH RISK: Target INR is 2.5-3.5 for patients with mechanical heart valves.[id number] 04:48:23* Test Item Value Reference Range Interpretation Comme nts AMMONIA (BEAKER) (test code = 348) 53 mol/L 18-72 [employer] ID - ADMINCBC W/PLT COUNT & AUTO [id number] 04:44:41* Test Item Value Reference Range Interpretation Comme nts WHITE BLOOD CELL COUNT (BEAK ER) (test code = 775) 9.8 K/ L 3.5-10.5 RED BLOOD CELL COUNT (BEAKER ) (test code = 761) 3.32 M/ L 4.63-6.08 L HEMOGLOBIN (BEAKER) (test co de = 410) 9.0 GM/DL 13.7-17.5 L HEMATOCRIT (BEAKER) (test co de = 411) 28.9 % 40.1-51.0 L MEAN CORPUSCULAR VOLUME (CHERELLE KER) (test code = 753) 87 fL 79-92 MEAN CORPUSCULAR HEMOGLOBIN (BEAKER) (test code = 751) 27.1 pg 25.7-32.2 MEAN CORPUSCULAR HEMOGLOBIN CONC (BEAKER) (test code = 752) 31.1 GM/DL 32.3-36.5 L RED CELL DISTRIBUTION WIDTH (BEAKER) (test code = 412) 15.6 % 11.6-14.4 H PLATELET COUNT (BEAKER) (rudy t code = 756) 162 K/CU MM 150-450 MEAN PLATELET VOLUME (BEAKER ) (test code = 754) 9.7 fL 9.4-12.4 NUCLEATED RED BLOOD CELLS (BEAKER) (test code = 413) 0 /100 WBC 0-0 NEUTROPHILS RELATIVE PERCENT (BEAKER) (test code = 429) 72 % LYMPHOCYTES RELATIVE PERCENT (BEAKER) (test code = 430) 15 % MONOCYTES RELATIVE PERCENT (BEAKER) (test code = 431) 8 % EOSINOPHILS RELATIVE PERCENT (BEAKER) (test code = 432) 4 % BASOPHILS RELATIVE PERCENT (BEAKER) (test code = 437) 1 % NEUTROPHILS ABSOLUTE COUNT (BEAKER) (test code = 670) 7.08 K/ L 1.78-5.38 H LYMPHOCYTES ABSOLUTE COUNT (BEAKER) (test code = 414) 1.47 K/ L 1.32-3.57 MONOCYTES ABSOLUTE COUNT (BE GUZMAN) (test code = 415) 0.77 K/ L 0.30-0.82 EOSINOPHILS ABSOLUTE COUNT (BEAKER) (test code = 416) 0.36 K/ L 0.04-0.54 BASOPHILS ABSOLUTE COUNT (BE GUZMAN) (test code = 417) 0.07 K/ L 0.01-0.08 IMMATURE GRANULOCYTES-RELATI VE PERCENT (BEAKER) (test code = 2801) 0.50 % 0.00-1.00 POCT-GLUCOSE [id number] 23:57:14* Test Item Value Reference Range Interpretation Comme nts POC-GLUCOSE METER (BEAKER) (test code = 1538) 111 mg/dL 70-110 H : TESTED AT [facility] [address] [facility] [place], [address]: [employer] Rubber/Maintainer Operator ID = [id number] for Betsy Franco Prepare Leuko-Red [id number] 23:55:00* Test Item Value Reference Range Interpretation Comme nts CROSSMATCH (test code = 2264) COMPATIBLE Unit ABO (test code = 1313373) O Pos UNIT NUMBER (test code = 934-0) [id number] Status (test code = 1272289) [facility] Product (test cod e = 2263) RED BLOOD CELLS PRODUCT CODE (test code = 933-2) [id number] [id number] 21:29:00* Test Item Value Reference Range Interpretation Comme nts POTASSIUM (BEAKER) (test cod e = 379) 4.0 meq/L 3.5-5.1 [employer] ID - ADMINPOCT-GLUCOSE [id number] 17:37:28* Test Item Value Reference Range Interpretation Comme nts POC-GLUCOSE METER (BEAKER) (test code = 1538) 116 mg/dL 70-110 H : Notified RN/MD : TESTED AT [address], [address]: He[employer] Rubber/Maintainer Operator ID = [id number] for ABE, TIKEYA [id number] 14:00:25* Test Item Value Reference Range Interpretation Comme nts POTASSIUM (BEAKER) (test cod e = 379) 3.9 meq/L 3.5-5.1 [employer] ID - [id number] 14:00:20* Test Item Value Reference Range Interpretation Comme nts MAGNESIUM (BEAKER) (test cod e = 627) 2.1 mg/dL 1.6-2.6 [employer] ID - ADMINPOCT-GLUCOSE [id number] 12:01:26* Test Item Value Reference Range Interpretation Comme nts POC-GLUCOSE METER (BEAKER) (test code = 1538) 121 mg/dL 70-110 H : Notified RN/MD : TESTED AT [address], [address]: [employer]ber/Maintainer Operator ID = [id number] for ABE, TIKEYA PROTHROMBIN TIME/[id number] 11:20:25* Test Item Value Reference Range Interpretation Comme nts PROTIME (BEAKER) (test code = 759) 16.6 seconds 11.9-14.2 H INR (BEAKER) (test code = 370) 1.35 <=5.90 RECOMMENDED COUMADIN/WARFARIN INR THERAPY RANGESSTANDARD DOSE: 2.0 - 3.0 Includes: PROPHYLAXIS for venous thrombosis, systemic embolization; TREATMENT for venous thrombosis and/or pulmonary embolus.HIGH RISK: Target INR is 2.5-3.5 for patients with mechanical heart valves.BLOOD GAS, [id number] 08:56:53 * Test Item Value Reference Range Interpretation Comme nts PH ARTERIAL (BEAKER) (test c ode = 383) 7.47 7.35-7.45 H PCO2 ARTERIAL (BEAKER) (test code = 384) 30 mm Hg 35-45 L PO2 ARTERIAL (BEAKER) (test code = 385) 146 mm Hg 80-90 H O2 SATURATION ARTERIAL (BEAK ER) (test code = 386) 99.0 % 96.0-97.0 H HCO3 ARTERIAL (BEAKER) (test code = 388) 21 mmol/L 21-29 BASE EXCESS ARTERIAL (BEAKER ) (test code = 387) -2.0 mmol/L -2.0-3.0 PATIENT TEMPERATURE (BEAKER) (test code = 1818) 36.5 FIO2 (BEAKER) (test code = 1819) 35.0 XR CHEST 1 VIEW PORTABLE / [id number] 07:40:46 [facility] : 1965 Sex: MXR CHEST 1 VIEW PORTABLE / BEDSIDEINDICATION: intubatedCOMPARISON: Prior day's examFINDINGS: Portable frontal view of the chest. IMPRESSION:Support Lines: ET tube tip is 5 cm superior to the elicia. NG tubedescends below the diaphragm. Lungs and pleura: Lungs are clear. No significant pneumothorax.Heart and mediastinum: Stable contours. Stable surgical changes.Additional findings: None.Electronically Signed By: Rivka Scott12/11/2023 07:42 CDTWorkstation Name: [id number] 05:54:06* Test Item Value Reference Range Interpretation Comme nts POC-GLUCOSE METER (BEAKER) (test code = 1538) 117 mg/dL 70-110 H : TESTED AT [facility] [address] [facility] [place], [address]: He[employer]ber/Maintainer Operator ID = [id number] for Morena Rosa BLOOD GAS, [id number] 05:25:27* Test Item Value Reference Range Interpretation Comme nts PH ARTERIAL (BEAKER) (test c ode = 383) 7.49 7.35-7.45 H PCO2 ARTERIAL (BEAKER) (test code = 384) 28 mm Hg 35-45 L PO2 ARTERIAL (BEAKER) (test code = 385) 199 mm Hg 80-90 H O2 SATURATION ARTERIAL (BEAK ER) (test code = 386) 99.5 % 96.0-97.0 H HCO3 ARTERIAL (BEAKER) (test code = 388) 21 mmol/L 21-29 BASE EXCESS ARTERIAL (BEAKER ) (test code = 387) -1.7 mmol/L -2.0-3.0 PATIENT TEMPERATURE (BEAKER) (test code = 1818) 35.8 FIO2 (BEAKER) (test code = 1819) 35.0 BASIC METABOLIC [id number] 04:55:45* Test Item Value Reference Range Interpretation Comme nts SODIUM (BEAKER) (test code = 381) 139 meq/L 136-145 POTASSIUM (BEAKER) (test code = 379) 3.5 meq/L 3.5-5.1 CHLORIDE (BEAKER) (test code = 382) 113 meq/L 98-107 H CO2 (BEAKER) (test code = 355) 18 meq/L 22-29 L BLOOD UREA NITROGEN (BEAKER) (test code = 354) 11 mg/dL 7-21 CREATININE (BEAKER) (test code = 358) 0.79 mg/dL 0.57-1.25 GLUCOSE RANDOM (BEAKER) (test code = 652) 111 mg/dL 70-105 H CALCIUM (BEAKER) (test code = 697) 8.2 mg/dL 8.4-10.2 L EGFR (BEAKER) (test code = 1092) 103 mL/min/1.73 sq m Interpretation of eG FR values Stage Description Result G1 Normal or high >=90 G2 Mildly decreased 60-89 G3a Mildly to moderately 45-59 G3b Moderately to severely 30-44 G4 Severly decreased 15-29 G5 Kidney failure <15Reported eGFR is based on the CKD-EPI 2020 equation that does not use a race coefficientEstimated GFR is not as accurate as Creatinine Clearance in predicting glomerular filtration rate. Estimated GFR is not applicable for dialysis patients [employer] ID - [id number] 04:55:45* Test Item Value Reference Range Interpretation Comme nts MAGNESIUM (BEAKER) (test cod e = 627) 1.5 mg/dL 1.6-2.6 L [employer] ID - [id number] 04:55:45* Test Item Value Reference Range Interpretation Comme nts PHOSPHORUS (BEAKER) (test co de = 604) 3.4 mg/dL 2.3-4.7 [employer] ID - ADMINCBC W/PLT COUNT & AUTO [id number] 04:42:39* Test Item Value Reference Range Interpretation Comme nts WHITE BLOOD CELL COUNT (BEAK ER) (test code = 775) 12.4 K/ L 3.5-10.5 H RED BLOOD CELL COUNT (BEAKER ) (test code = 761) 3.57 M/ L 4.63-6.08 L HEMOGLOBIN (BEAKER) (test co de = 410) 9.5 GM/DL 13.7-17.5 L HEMATOCRIT (BEAKER) (test co de = 411) 30.3 % 40.1-51.0 L MEAN CORPUSCULAR VOLUME (CHERELLE KER) (test code = 753) 85 fL 79-92 MEAN CORPUSCULAR HEMOGLOBIN (BEAKER) (test code = 751) 26.6 pg 25.7-32.2 MEAN CORPUSCULAR HEMOGLOBIN CONC (BEAKER) (test code = 752) 31.4 GM/DL 32.3-36.5 L RED CELL DISTRIBUTION WIDTH (BEAKER) (test code = 412) 15.5 % 11.6-14.4 H PLATELET COUNT (BEAKER) (rudy t code = 756) 176 K/CU MM 150-450 MEAN PLATELET VOLUME (BEAKER ) (test code = 754) 10.2 fL 9.4-12.4 NUCLEATED RED BLOOD CELLS (BEAKER) (test code = 413) 0 /100 WBC 0-0 NEUTROPHILS RELATIVE PERCENT (BEAKER) (test code = 429) 84 % LYMPHOCYTES RELATIVE PERCENT (BEAKER) (test code = 430) 8 % MONOCYTES RELATIVE PERCENT (BEAKER) (test code = 431) 5 % EOSINOPHILS RELATIVE PERCENT (BEAKER) (test code = 432) 3 % BASOPHILS RELATIVE PERCENT (BEAKER) (test code = 437) 1 % NEUTROPHILS ABSOLUTE COUNT (BEAKER) (test code = 670) 10.35 K/ L 1.78-5.38 H LYMPHOCYTES ABSOLUTE COUNT (BEAKER) (test code = 414) 0.94 K/ L 1.32-3.57 L MONOCYTES ABSOLUTE COUNT (BE GUZMAN) (test code = 415) 0.59 K/ L 0.30-0.82 EOSINOPHILS ABSOLUTE COUNT (BEAKER) (test code = 416) 0.36 K/ L 0.04-0.54 BASOPHILS ABSOLUTE COUNT (BE GUZMAN) (test code = 417) 0.07 K/ L 0.01-0.08 IMMATURE GRANULOCYTES-RELATI VE PERCENT (BEAKER) (test code = 2801) 0.60 % 0.00-1.00 POCT-GLUCOSE [id number] 00:10:41* Test Item Value Reference Range Interpretation Comme [facility] POC-GLUCOSE METER (BEAKER) (test code = 1538) 116 mg/dL 70-110 H : TESTED AT [address], [address]: [employer]ber/Maintainer Operator ID = [id number] for Morena Rosa CBC (HEMOGRAM ONLY)2023-12-10 19:53:49* Test Item Value Reference Range Interpretation Comme nts WHITE BLOOD CELL COUNT (BEAK ER) (test code = 775) 8.1 K/ L 3.5-10.5 RED BLOOD CELL COUNT (BEAKER ) (test code = 761) 3.44 M/ L 4.63-6.08 L HEMOGLOBIN (BEAKER) (test co de = 410) 9.2 GM/DL 13.7-17.5 L HEMATOCRIT (BEAKER) (test co de = 411) 29.2 % 40.1-51.0 L MEAN CORPUSCULAR VOLUME (CHERELLE KER) (test code = 753) 85 fL 79-92 MEAN CORPUSCULAR HEMOGLOBIN (BEAKER) (test code = 751) 26.7 pg 25.7-32.2 MEAN CORPUSCULAR HEMOGLOBIN CONC (BEAKER) (test code = 752) 31.5 GM/DL 32.3-36.5 L RED CELL DISTRIBUTION WIDTH (BEAKER) (test code = 412) 15.2 % 11.6-14.4 H PLATELET COUNT (BEAKER) (rudy t code = 756) 155 K/CU MM 150-450 MEAN PLATELET VOLUME (BEAKER ) (test code = 754) 10.5 fL 9.4-12.4 NUCLEATED RED BLOOD CELLS (BEAKER) (test code = 413) 0 /100 WBC 0-0 POCT-GLUCOSE [id number] 19:32:09* Test Item Value Reference Range Interpretation Comme nts POC-GLUCOSE METER (BEAKER) (test code = 1538) 101 mg/dL 70-110 : TESTED AT [facility] [address] [facility], [address]: He[employer]ber/Maintainer Operator ID = [id number] for ISRAELLUZ MARIA RODRIGUEZ CSF cell count with ocpssvgdmajd2215-22-00 16:52:09* Test Item Value Reference Range Interpretation Comme nts Appearance (test code = 33015-7) Clear Clear Color (test code = 29335-4) Colorless Colorless RBCs (test code = 792-2) 2 See_Comment [Automated [employer] Holla@Me] The system which generated this result transmitted reference range: 0 - 5 /cu mm. The reference range was not used to interpret this result as normal/abnormal. RBCs Fresh? (test code = 62267-5) 100% Fresh TNC Count (test code = 806-0) 1 See_Comment [Automated [employer] ge] The system which generated this result transmitted reference range: <=5 /cu mm. The reference range was not used to interpret this result as normal/abnormal. Adjusted WBC Count (test code = 45574-2) 1 See_Comment [Automated message] The system which generated this result transmitted reference range: /cu mm. The reference range was not used to interpret this result as normal/abnormal. Adjusted lining cells/Others (test code = 23060-8) 0 See_Comment [Automated [employer] ge] The system which generated this result transmitted reference range: /cu mm. The reference range was not used to interpret this result as normal/abnormal. % Neutros (test code = 88290-5) 80 % 0-5 H % Lymphs (test code = 11507-8) 10 % 40-80 L % Monos (test code = 439) 10 % 15-45 L % Eos (test code = 360) 0 % <=0 % Baso (test code = 440) 0 % <=0 Tube Number (test code = 2677) 2 Lab Interpretation (test code = 96479-7) [facility]normal [facility]/[id number] 16:52:09* Test Item Value Reference Range Interpretation Comme nts APPEARANCE CSF (BEAKER) (rudy t code = 407) Clear Clear COLOR CSF (BEAKER) (test cod e = 408) Colorless Colorless RBC CSF (BEAKER) (test code = 409) 2 /cu mm 0-5 RBCS FRESH (BEAKER) (test co de = 1444) 100% Fresh TOTAL NUCLEATED CELL COUNT ( test code = 1020) 1 /cu mm <=5 ADJUSTED WBC FLUID (BEAKER) (test code = 3572074818) 1 /cu mm LINING CELLS/OTHERS, CALCULA BALJINDER (BEAKER) (test code = 1598010839) 0 /cu mm NEUTROPHIL, CSF (BEAKER) (te st code = 324) 80 % 0-5 H LYMPHS CSF (BEAKER) (test co de = 438) 10 % 40-80 L MONO/MACROPHAGE CSF (BEAKER) (test code = 439) 10 % 15-45 L EOSINOPHILS CSF (BEAKER) (te st code = 360) 0 % <=0 BASO CSF (BEAKER) (test code = 440) 0 % <=0 TUBE NUMBER CSF (BEAKER) (te st code = 2678) 2 CSF CELL COUNT W/[id number] 16:45:57* Test Item Value Reference Range Interpretation Comme nts APPEARANCE CSF (BEAKER) (rudy t code = 407) Clear Clear COLOR CSF (BEAKER) (test cod e = 408) Colorless Colorless RBC CSF (BEAKER) (test code = 409) 110 /cu mm 0-5 H RBCS FRESH (BEAKER) (test co de = 1444) 100% Fresh TOTAL NUCLEATED CELL COUNT ( test code = 1020) 15 /cu mm <=5 H ADJUSTED WBC FLUID (BEAKER) (test code = 5900034676) 15 /cu mm LINING CELLS/OTHERS, CALCULA BALJINDER (BEAKER) (test code = 2850346743) 0 /cu mm NEUTROPHIL, CSF (BEAKER) (te st code = 324) 74 % 0-5 H LYMPHS CSF (BEAKER) (test co de = 438) 18 % 40-80 L MONO/MACROPHAGE CSF (BEAKER) (test code = 439) 8 % 15-45 L EOSINOPHILS CSF (BEAKER) (te st code = 360) 0 % <=0 BASO CSF (BEAKER) (test code = 440) 0 % <=0 TUBE NUMBER CSF (BEAKER) (te st code = 2678) 1 MENINGITIS/ENCEPHALITIS [id number] 16:01:19* Test Item Value Reference Range Interpretation Comme nts E COLI K1 (test code = 68331-9) Not detected Not detected HAEMOPHILUS INFLUENZAE (test code = 52866-0) Not detected Not detected LISTERIA MONOCYTOGENES (test code = 50220-8) Not detected Not detected NEISSERIA MENINGITIDIS (test code = 30127-5) Not detected Not detected STREPTOCOCCUS AGALACTIAE (test code = 01133-3) Not detected Not detected STREPTOCOCCUS PNEUMONIAE (test code = 16281-6) Not detected Not detected Cytomegalovirus (CMV) (test code = 15668-6) Not detected Not detected ENTEROVIRUS (test code = 29367-8) Not detected Not detected Human herpesvirus 6 (HHV-6) (test code = 03826-5) Not detected Not detected Herpes simplex virus 1(HSV-1) (test code = 64133-5) Not detected Not detected HERPES SIMPLEX VIRUS 2(HSV-2) (test code = 78053-1) Not detected Not detected Human parechovirus (test code = 40589-8) Not detected Not detected Varicella-zoster virus (VZV) (test code = 64707-0) Not detected Not detected Cryptococcus neoformans/gattii (test code = 96476-5) Not detected Not detected TERESA (test code = TERESA) The performance of this test has not been specifically evaluated for CSF specimens from immunocompromised individuals. The effect of antibiotic treatment on test performance has not been evaluated. Other viruses and bacteria not targeted by this PCR panel cannot be excluded; therefore, clinical correlation and follow up of serology, culture results, and other molecular studies may be required. This sample was tested at the [facility] Molecular Diagnostics Laboratory using the [employer] FilmArray Meningitis Encephalitis Panel. It is FDA cleared and has been verified and approved by the [facility] Molecular Diagnostics Laboratory for clinical use. This laboratory is CLIA-certified and [employer] (CAP)-accredited to perform high complexity testing. Lab Interpretation (test code = 37232-8) Normal [facility]ING[facility]IS/ENCEPHALITIS [id number] 16:01:19* Test Item Value Reference Range Interpretation Comme nts ESCHERICHIA COLI K1 (test co de = 7274270) Not detected Not detected HAEMOPHILUS INFLUENZAE (test code = 3476680) Not detected Not detected LISTERIA MONOCYTOGENES (test code = 9273411) Not detected Not detected NEISSERIA MENINGITIDIS (test code = 0066546) Not detected Not detected STREPTOCOCCUS AGALACTIAE (te st code = 5738519) Not detected Not detected STREPTOCOCCUS PNEUMONIAE (te st code = 9536718) Not detected Not detected CYTOMEGALOVIRUS (CMV) (test code = 9577676) Not detected Not detected ENTEROVIRUS (test code = 0323811) Not detected Not detected HUMAN HERPESVIRUS 6 (HHV-6) (test code = 5123862) Not detected Not detected HERPES SIMPLEX VIRUS 1(HSV-1 ) (test code = 4969469) Not detected Not detected HERPES SIMPLEX VIRUS 2(HSV-2 ) (test code = 6452506) Not detected Not detected HUMAN PARECHOVIRUS (test cod e = 0680808) Not detected Not detected VARICELLA-ZOSTER VIRUS (VZV) (test code = 1359092) Not detected Not detected CRYPTOCOCCUS NEOFORMANS/GATT II (test code = 1081477) Not detected Not detected The performance of this test has not been specifically evaluated for CSF specimens from immunocompromised individuals. The effect of antibiotic treatment on test performance has not been evaluated. Other viruses and bacteria not targeted by this PCR panel cannot be excluded; therefore, clinical correlation and follow up of serology, culture results, and other molecular studies may be required. This sample was tested at the [facility] Molecular Diagnostics Laboratory using the [employer] FilmArray Meningitis Encephalitis Panel. It is FDA cleared and has been verified and approved by the [facility] Molecular Diagnostics Laboratory for clinical use. This laboratory is CLIA-certified and [employer] (CAP)-accredited to perform high complexity testing.BLOOD GAS, [id number] 15:07:08* Test Item Value Reference Range Interpretation Comme nts PH ARTERIAL (BEAKER) (test c ode = 383) 7.56 7.35-7.45 H PCO2 ARTERIAL (BEAKER) (test code = 384) 24 mm Hg 35-45 L PO2 ARTERIAL (BEAKER) (test code = 385) 141 mm Hg 80-90 H O2 SATURATION ARTERIAL (BEAK ER) (test code = 386) 99.2 % 96.0-97.0 H HCO3 ARTERIAL (BEAKER) (test code = 388) 21 mmol/L 21-29 BASE EXCESS ARTERIAL (BEAKER ) (test code = 387) -1.4 mmol/L -2.0-3.0 PATIENT TEMPERATURE (BEAKER) (test code = 1818) 35.8 FIO2 (BEAKER) (test code = 1819) 35.0 [id number] 15:04:52* Test Item Value Reference Range Interpretation Comme nts POTASSIUM (BEAKER) (test cod e = 379) 3.3 meq/L 3.5-5.1 L [employer] ID - HGProtein, [id number] 14:27:51* Test Item Value Reference Range Interpretation Comme nts Protein, CSF (test code = 2880-3) 28 mg/dL 15-45 TERESA (test code = TERESA) [employer] ID - ADMIN Lab Interpretation (test code = 87080-1) [facility], [id number] 14:27:51* Test Item Value Reference Range Interpretation Comme nts PROTEIN CSF (BEAKER) (test c ode = 378) 28 mg/dL 15-45 [employer] ID - ADMINGlucose, [id number] 14:22:24* Test Item Value Reference Range Interpretation Comme nts Glucose, CSF (test code = 2342-4) 54 mg/dL 40-70 TERESA (test code = TERESA) [employer] ID - ADMIN Lab Interpretation (test code = 89812-9) Normal [facility] CenterGLUCOSE, [id number] 14:22:24* Test Item Value Reference Range Interpretation Comme nts GLUCOSE CSF (BEAKER) (test c ode = 406) 54 mg/dL 40-70 [employer] ID - ADMINPOCT-GLUCOSE [id number] 14:11:24* Test Item Value Reference Range Interpretation Comme nts POC-GLUCOSE METER (BEAKER) (test code = 1538) 103 mg/dL 70-110 : TESTED AT [facility] [address] [facility] [place], [address]: He[employer] Rubber/Maintainer Operator ID = [id number] for LUZ MARIA WOOD XR CHEST 1 VIEW PORTABLE / [id number] 13:09:10 [facility] : 1965 Sex: MChest, one view.HISTORY: central line placement COMPARISON: Radiograph from earlier today and 12/28/2021IMPRESSION:Interval placement of a right subclavian central venous catheter withthe tip over the mid SVC. Otherwise, the support tubes are unchanged inposition.The right lateral basal lung opacity has decreased. The prominentinterstitial opacities of the lungs are unchanged. There is a small leftpleural effusion. No pneumothorax. The cardiac silhouette is unchangedin size. No acute bone abnormality. There are combination of old, healedand old incompletely healed left lateral rib fractures.Electronically Signed By: Asif Polanco12/10/2023 13:11 CDTWorkstation Name: [id number] CHEST 1 VIEW PORTABLE / [id number] 12:30:52 [facility] : 1965 Sex: MEXAMINATION: XR CHEST 1 VIEW PORTABLE / BEDSIDE INDICATION: intubatedCOMPARISON: 12/28/2021 FINDINGS:LINES/TUBES: There is an endotracheal tube just above the aortic arch.Nasogastric tube courses into the stomach. LUNGS: There is some coarse infiltrate and atelectasis in the right lungbase with elevation of the right hemidiaphragm. Chronic interstitialchanges are noted bilaterally.PLEURA: No pleural effusion or pneumothorax.MEDIASTINUM: The cardiomediastinal silhouette appears normal in size andshape.BONES/SOFT TISSUES: No acute osseous injury.ABDOMEN: No free air under the diaphragm.IMPRESSION:Rightbasal atelectasis/infiltrate.Satisfactory endotracheal tube and nasogastric tube.Electronically Signed By: Roma Garvin12/10/2023 12:33 CDTWorkstation Name: [id number] KINASE (CK)2023-12-10 12:25:14* Test Item Value Reference Range Interpretation Comme nts CREATINE KINASE TOTAL (BEAKE R) (test code = 380) 93 U/L 29-200 [employer] ID - ADMINBLOOD GAS, [id number] 12:04:22* Test Item Value Reference Range Interpretation Comme nts PH ARTERIAL (BEAKER) (test c ode = 383) 7.56 7.35-7.45 H PCO2 ARTERIAL (BEAKER) (test code = 384) 23 mm Hg 35-45 L PO2 ARTERIAL (BEAKER) (test code = 385) 164 mm Hg 80-90 H O2 SATURATION ARTERIAL (BEAK ER) (test code = 386) 99.4 % 96.0-97.0 H HCO3 ARTERIAL (BEAKER) (test code = 388) 20 mmol/L 21-29 L BASE EXCESS ARTERIAL (BEAKER ) (test code = 387) -2.0 mmol/L -2.0-3.0 PATIENT TEMPERATURE (BEAKER) (test code = 1818) 36.5 FIO2 (BEAKER) (test code = 1819) 35.0 VITAMIN [id number] 09:36:48* Test Item Value Reference Range Interpretation Comme nts VITAMIN B12 (BEAKER) (test c ode = 774) 274 pg/mL 213-816 [employer] ID - HGPHENOBARBITAL [id number] 06:59:06* Test Item Value Reference Range Interpretation Comme nts PHENOBARBITAL LEVEL (BEAKER) (test code = 607) 37.7 mcg/ml 15.0-40.0 [employer] ID - HGPOCT-GLUCOSE [id number] 06:35:20* Test Item Value Reference Range Interpretation Comme nts POC-GLUCOSE METER (BEAKER) (test code = 1538) 88 mg/dL 70-110 : TESTED AT [facility] [address] [facility], [address]: Heel Se[employer] Rubber/Maintainer Operator ID = [id number] for Morena Rosa BASIC METABOLIC [id number] 03:46:11* Test Item Value Reference Range Interpretation Comme nts SODIUM (BEAKER) (test code = 381) 136 meq/L 136-145 POTASSIUM (BEAKER) (test code = 379) 2.8 meq/L 3.5-5.1 L CHLORIDE (BEAKER) (test code = 382) 108 meq/L 98-107 H CO2 (BEAKER) (test code = 355) 18 meq/L 22-29 L BLOOD UREA NITROGEN (BEAKER) (test code = 354) 11 mg/dL 7-21 CREATININE (BEAKER) (test code = 358) 0.86 mg/dL 0.57-1.25 GLUCOSE RANDOM (BEAKER) (test code = 652) 95 mg/dL 70-105 CALCIUM (BEAKER) (test code = 697) 7.8 mg/dL 8.4-10.2 L EGFR (BEAKER) (test code = 1092) 101 mL/min/1.73 sq m Interpretation of eG FR values Stage Description Result G1 Normal or high >=90 G2 Mildly decreased 60-89 G3a Mildly to moderately 45-59 G3b Moderately to severely 30-44 G4 Severly decreased 15-29 G5 Kidney failure <15Reported eGFR is based on the CKD-EPI 2020 equation that does not use a race coefficientEstimated GFR is not as accurate as Creatinine Clearance in predicting glomerular filtration rate. Estimated GFR is not applicable for dialysis patients [employer] ID - ADMINBLOOD GAS, [id number] 03:21:32* Test Item Value Reference Range Interpretation Comme nts PH ARTERIAL (BEAKER) (test c ode = 383) 7.61 7.35-7.45 HH PCO2 ARTERIAL (BEAKER) (test code = 384) 21 mm Hg 35-45 L PO2 ARTERIAL (BEAKER) (test code = 385) 195 mm Hg 80-90 H O2 SATURATION ARTERIAL (BEAK ER) (test code = 386) 99.6 % 96.0-97.0 H HCO3 ARTERIAL (BEAKER) (test code = 388) 21 mmol/L 21-29 BASE EXCESS ARTERIAL (BEAKER ) (test code = 387) -0.3 mmol/L -2.0-3.0 PATIENT TEMPERATURE (BEAKER) (test code = 1818) 36.4 FIO2 (BEAKER) (test code = 1819) 35.0 CBC W/PLT COUNT & AUTO [id number] 03:20:10* Test Item Value Reference Range Interpretation Comme nts WHITE BLOOD CELL COUNT (BEAK ER) (test code = 775) 5.6 K/ L 3.5-10.5 RED BLOOD CELL COUNT (BEAKER ) (test code = 761) 2.61 M/ L 4.63-6.08 L HEMOGLOBIN (BEAKER) (test co de = 410) 7.0 GM/DL 13.7-17.5 L HEMATOCRIT (BEAKER) (test co de = 411) 22.1 % 40.1-51.0 L MEAN CORPUSCULAR VOLUME (CHERELLE KER) (test code = 753) 85 fL 79-92 MEAN CORPUSCULAR HEMOGLOBIN (BEAKER) (test code = 751) 26.8 pg 25.7-32.2 MEAN CORPUSCULAR HEMOGLOBIN CONC (BEAKER) (test code = 752) 31.7 GM/DL 32.3-36.5 L RED CELL DISTRIBUTION WIDTH (BEAKER) (test code = 412) 14.9 % 11.6-14.4 H PLATELET COUNT (BEAKER) (rudy t code = 756) 175 K/CU MM 150-450 MEAN PLATELET VOLUME (BEAKER ) (test code = 754) 10.5 fL 9.4-12.4 NUCLEATED RED BLOOD CELLS (BEAKER) (test code = 413) 0 /100 WBC 0-0 NEUTROPHILS RELATIVE PERCENT (BEAKER) (test code = 429) 55 % LYMPHOCYTES RELATIVE PERCENT (BEAKER) (test code = 430) 33 % MONOCYTES RELATIVE PERCENT (BEAKER) (test code = 431) 9 % EOSINOPHILS RELATIVE PERCENT (BEAKER) (test code = 432) 2 % BASOPHILS RELATIVE PERCENT (BEAKER) (test code = 437) 1 % NEUTROPHILS ABSOLUTE COUNT (BEAKER) (test code = 670) 3.12 K/ L 1.78-5.38 LYMPHOCYTES ABSOLUTE COUNT (BEAKER) (test code = 414) 1.88 K/ L 1.32-3.57 MONOCYTES ABSOLUTE COUNT (BE GUZMAN) (test code = 415) 0.48 K/ L 0.30-0.82 EOSINOPHILS ABSOLUTE COUNT (BEAKER) (test code = 416) 0.09 K/ L 0.04-0.54 BASOPHILS ABSOLUTE COUNT (BE GUZMAN) (test code = 417) 0.06 K/ L 0.01-0.08 IMMATURE GRANULOCYTES-RELATI VE PERCENT (BEAKER) (test code = 2801) 0.20 % 0.00-1.00 POCT-GLUCOSE [id number] 00:34:38* Test Item Value Reference Range Interpretation Comme [facility] POC-GLUCOSE METER (BEAKER) (test code = 1538) 90 mg/dL 70-110 : TESTED AT [facility] [address] [facility] [place], [address]: [employer] Rubber/Maintainer Operator ID = [id number] for Morena Rosa ABDOMEN/KUB 1 VIEW [id number] 22:10:52 [facility] : 1965 Sex: MTECHNIQUE: Supine views of the abdomen.INDICATION: outside hospital OG tube placement.COMPARISON: None.FINDINGS/IMPRESSION:Orogastric tube terminates within the gastric body and sidehole iswithin the stomach. Bowel gas pattern is nonobstructive.Electronically Signed By: Len Jack12/09/2023 22:12 CDTWork station Name: [id number] FUNCTION [id number] 20:19:48* Test Item Value Reference Range Interpretation Comme nts TOTAL PROTEIN (BEAKER) (test code = 770) 6.4 gm/dL 6.0-8.3 ALBUMIN (BEAKER) (test code = 1145) 2.9 g/dL 3.5-5.0 L BILIRUBIN TOTAL (BEAKER) (te st code = 377) 1.5 mg/dL 0.2-1.2 H BILIRUBIN DIRECT (BEAKER) (t est code = 706) 0.8 mg/dL 0.1-0.5 H ALKALINE PHOSPHATASE (BEAKER ) (test code = 346) 73 U/L 40-150 AST (SGOT) (BEAKER) (test co de = 353) 22 U/L 5-34 ALT (SGPT) (BEAKER) (test co de = 347) 11 U/L 6-55 [employer] ID - ADMINLACTIC ACID, [id number] 18:33:54* Test Item Value Reference Range Interpretation Comme nts LACTATE BLOOD ARTERIAL (2) (BEAKER) (test code = 2874) 1.4 mmol/L 0.5-2.0 [employer] ID - HGBASIC METABOLIC [id number] 17:47:30* Test Item Value Reference Range Interpretation Comme nts SODIUM (BEAKER) (test code = 381) 135 meq/L 136-145 L POTASSIUM (BEAKER) (test code = 379) 3.6 meq/L 3.5-5.1 CHLORIDE (BEAKER) (test code = 382) 108 meq/L 98-107 H CO2 (BEAKER) (test code = 355) 22 meq/L 22-29 BLOOD UREA NITROGEN (BEAKER) (test code = 354) 12 mg/dL 7-21 CREATININE (BEAKER) (test code = 358) 0.83 mg/dL 0.57-1.25 GLUCOSE RANDOM (BEAKER) (test code = 652) 94 mg/dL 70-105 CALCIUM (BEAKER) (test code = 697) 8.1 mg/dL 8.4-10.2 L EGFR (BEAKER) (test code = 1092) 102 mL/min/1.73 sq m Interpretation of eG FR values Stage Description Result G1 Normal or high >=90 G2 Mildly decreased 60-89 G3a Mildly to moderately 45-59 G3b Moderately to severely 30-44 G4 Severly decreased 15-29 G5 Kidney failure <15Reported eGFR is based on the CKD-EPI 2020 equation that does not use a race coefficientEstimated GFR is not as accurate as Creatinine Clearance in predicting glomerular filtration rate. Estimated GFR is not applicable for dialysis patients [employer] ID - [id number] 17:47:30* Test Item Value Reference Range Interpretation Comme nts TRIGLYCERIDES (BEAKER) (test code = 540) 81 mg/dL TRIGLYCERIDE REFERENCE RANGELow Risk <150Borderline Risk 150-199High Risk 200- 499Very High Risk >=500Operator ID - [id number] 17:44:14* Test Item Value Reference Range Interpretation Comme nts PARTIAL THROMBOPLASTIN TIME (BEAKER) (test code = 760) 33.7 seconds 22.5-36.0 PROTHROMBIN TIME/[id number] 17:43:28* Test Item Value Reference Range Interpretation Comme nts PROTIME (BEAKER) (test code = 759) 16.6 seconds 11.9-14.2 H INR (BEAKER) (test code = 370) 1.34 <=5.90 RECOMMENDED COUMADIN/WARFARIN INR THERAPY RANGESSTANDARD DOSE: 2.0 - 3.0 Includes: PROPHYLAXIS for venous thrombosis, systemic embolization; TREATMENT for venous thrombosis and/or pulmonary embolus.HIGH RISK: Target INR is 2.5-3.5 for patients with mechanical heart valves.[id number] 17:38:26* Test Item Value Reference Range Interpretation Comme nts AMMONIA (BEAKER) (test code = 348) 45 mol/L 18-72 Specimen slightl y hemolyzed [employer] ID - HGCBC W/PLT COUNT & AUTO [id number] 17:34:48* Test Item Value Reference Range Interpretation Comme nts WHITE BLOOD CELL COUNT (BEAK ER) (test code = 775) 8.9 K/ L 3.5-10.5 RED BLOOD CELL COUNT (BEAKER ) (test code = 761) 2.68 M/ L 4.63-6.08 L HEMOGLOBIN (BEAKER) (test co de = 410) 7.1 GM/DL 13.7-17.5 L HEMATOCRIT (BEAKER) (test co de = 411) 23.4 % 40.1-51.0 L MEAN CORPUSCULAR VOLUME (CHERELLE KER) (test code = 753) 87 fL 79-92 MEAN CORPUSCULAR HEMOGLOBIN (BEAKER) (test code = 751) 26.5 pg 25.7-32.2 MEAN CORPUSCULAR HEMOGLOBIN CONC (BEAKER) (test code = 752) 30.3 GM/DL 32.3-36.5 L RED CELL DISTRIBUTION WIDTH (BEAKER) (test code = 412) 15.0 % 11.6-14.4 H PLATELET COUNT (BEAKER) (rudy t code = 756) 190 K/CU MM 150-450 MEAN PLATELET VOLUME (BEAKER ) (test code = 754) 10.5 fL 9.4-12.4 NUCLEATED RED BLOOD CELLS (BEAKER) (test code = 413) 0 /100 WBC 0-0 NEUTROPHILS RELATIVE PERCENT (BEAKER) (test code = 429) 53 % LYMPHOCYTES RELATIVE PERCENT (BEAKER) (test code = 430) 33 % MONOCYTES RELATIVE PERCENT (BEAKER) (test code = 431) 13 % EOSINOPHILS RELATIVE PERCENT (BEAKER) (test code = 432) 0 % BASOPHILS RELATIVE PERCENT (BEAKER) (test code = 437) 1 % NEUTROPHILS ABSOLUTE COUNT (BEAKER) (test code = 670) 4.74 K/ L 1.78-5.38 LYMPHOCYTES ABSOLUTE COUNT (BEAKER) (test code = 414) 2.97 K/ L 1.32-3.57 MONOCYTES ABSOLUTE COUNT (BE GUZMAN) (test code = 415) 1.12 K/ L 0.30-0.82 H EOSINOPHILS ABSOLUTE COUNT (BEAKER) (test code = 416) 0.01 K/ L 0.04-0.54 L BASOPHILS ABSOLUTE COUNT (BE GUZMAN) (test code = 417) 0.08 K/ L 0.01-0.08 IMMATURE GRANULOCYTES-RELATI VE PERCENT (BEAKER) (test code = 2801) 0.20 % 0.00-1.00 COMPREHENSIVE METABOLIC [id number] 22:32:00* Test Item Value Reference Range Interpretation Comme nts SODIUM (test code = NA) 139 MMOL/L 137-145 N POTASSIUM (test code = K) 3.8 MMOL/L 3.5-5.1 N CHLORIDE (test code = CL) 111 MMOL/L 98-107 H CARBON DIOXIDE (test code = CO2) 22 MMOL/L 22-30 N GLUCOSE (test code = GLU) 103 MG/DL 74-106 N BLOOD UREA NITROGEN (test code = BUN) 13 MG/DL 9-20 N GLOMERULAR FILTRATION RATE (test code = GFR) > 60 The Glomerular Filtration Rate is a calculated parameterbased on serum Creatinine, patient age and sex. GFR valuesless than 60 mL/min/1.73 square meters are indicative ofChronic Kidney Disease. Values less than 15 mL/min/1.73square meters indicate Kidney failure. The calculation forGFR is based on the CKD-EPI (2020) calculation. This formulais race indifferent and is the recommended formula for GFRby the National Kidney Foundation for Adults.The GFR will not calculate if the sex is unknown or if thepatient's age is <18 years. CREATININE (test code = CREAT) 0.60 MG/DL 0.66-1.25 L TOTAL PROTEIN (test code = PROT) 7.2 G/DL 6.2-7.6 N [facility] iagnLulu[facility] has made us aware of newinformation regarding the potential interference ofEltrombopag (a bone marrow stimulant used to treatthrombocytonmenia and aplastic anemia) with specific assayson the [employer] 5600 of which Total Protein is one of thoseassays performed in our lab.Interference testing performed at [facility] determined thatEltrombopag does interfere with Vitros Total Protein asfollowsEltrombopag Interference for Vitros Product Total Protein: Eltrombopag Max Observed Avg. BiasConcentration Concentration Concentration 2.5 mg/dl 6.0 g/dl +0.41 +0.34 3.5 mg/dl 6.0 g/dl +0.50 +0.45 5 mg/dl 6.0 g/dl +0.73 +0.65 2.5 mg/dl 8.0 g/dl +0.44 +0.41 3.5 mg/dl 8.0 g/dl +0.55 +0.52 5 mg/dl 8.0 g/dl +0.86 +0.77 ALBUMIN (test code = ALB) 3.1 G/DL 3.5-5.0 L CALCIUM (test code = CA) 9.1 MG/DL 8.4-10.2 N BILIRUBIN TOTAL (test code = BILT) 0.8 MG/DL 0.2-1.3 N Eltrombopag Inte rference for Vitros Product TBil, BuBc: Assay Eltrombopag Analyte/ Max Observed Avg. Bias Concentration Concentration Concentration TBil 7mg/dl TBil/ 1.2mg/dl +0.23mg.dl +0.20mg/dlBuBc 3.5mg/dl Bu/0.8mg/dl +0.25mg/dl +0.24mg/dlBuBc 7 mg/dl Bu/14.2mg/dl +0.38mg/dl +0.25mg/dlBuBc 5mg/dl Bc/0mg/dl +0.25mg/dl +0.15mg/dlBuBc 3.5mg/dl Bc/2.8mg/dl +0.25mg/dl +0.23mg/dl SGOT/AST (test code = AST) 41 UNITS/L 17-59 N SGPT/ALT (test code = ALT) 23 UNITS/L 0-49 N ALKALINE PHOSPHATASE (test code = ALKP) 148 UNITS/L 38-126 H [id number] 22:32:00* Test Item Value Reference Range Interpretation Comme nts LIPASE (test code = LIP) 197 UNITS/L 23-300 N [id number] 22:32:00* Test Item Value Reference Range Interpretation Comme nts TROPONIN-I (test code = TROPI) < 0.012 NG/ML 0.012-0.033 L "Please be aware that bias results for Troponin may occurfor patients who are taking Biotin supplements, causingfalsely low troponin results. Please screen for routineBiotin (Vitamin B7) supplements taken in adelina doses (greaterthan 100-300mg/day) or beauty supplements." UA RFLX MICR CULT IF [id number] 21:46:00* Test Item Value Reference Range Interpretation Comme nts UA COLOR (test code = COLU) YELLOW YELLOW UA APPEARANCE (test code = APPU) CLEAR CLEAR UA GLUCOSE DIPSTICK (test co de = DGLUU) NORMAL MG/DL NORMAL UA BILIRUBIN DIPSTICK (test code = BILU) NEGATIVE MG/DL NEGATIVE UA KETONE DIPSTICK (test cod e = KETU) NEGATIVE MG/DL NEGATIVE UA SPECIFIC GRAVITY (test co de = SGU) 1.005 1.003-1.030 N UA BLOOD DIPSTICK (test code = LINCOLN) 25 Bladimir/mm3 NEGATIVE A UA PH DIPSTICK (test code = CRYSTAL) 7.0 5.0-9.0 N UA PROTEIN DIPSTICK (test co de = PROU) 15 MG/DL NEGATIVE UA UROBILINIOGEN DIPSTICK (test code = URO) NORMAL MG/DL NORMAL UA NITRITE DIPSTICK (test co de = RM) NEGATIVE NEGATIVE UA LEUKOCYTE ESTERASE DIPSTI CK (test code = LEUU) NEGATIVE /mm3 NEGATIVE Indication for culture: RiskForSepsis-no oth srcSOURCE OF URINE: Clean CatchUA [id number] 21:46:00* Test Item Value Reference Range Interpretation Comme nts UA RBC (test code = RBCU) 5-10 RBC/HPF 0-3 A UA WBC (test code = XWBCU) 0-3 WBC/HPF 0-5 UA EPITHELIAL CELLS (test co de = EPIU) FEW EPI/HPF FEW UA BACTERIA (test code = XBACU) NONE NONE Indication for culture: RiskForSepsis-no oth srcSOURCE OF URINE: Clean CatchCBC W/AUTO [id number] 21:34:00* Test Item Value Reference Range Interpretation Comme nts WHITE BLOOD CELL (test code = WBC) 5.4 K/MM3 3.8-9.8 N RED BLOOD CELL (test code = RBC) 2.64 M/MM3 3.95-5.67 L HEMOGLOBIN (test code = HGB) 7.8 G/DL 12.4-16.7 L HEMATOCRIT (test code = HCT) 24.7 % 35.9-49.5 L MEAN CELL VOLUME (test code = MCV) 94 fL 81.7-96.1 N MEAN CELL HGB (test code = MCH) 29.5 pg 27.6-33.2 N MEAN CELL HGB CONCETRATION (test code = MCHC) 31.6 % 32.9-35.5 L RED CELL DISTRIBUTION WIDTH (test code = RDW) 14.6 % 12.1-15.2 N PLATELET COUNT (test code = PLT) 186 K/MM3 129-368 N MEAN PLATELET VOLUME (test c ode = MPV) 10.2 fl 7.4-10.4 N NEUTROPHIL % (test code = NT%) 51.0 % 43-75 N IMMATURE GRANULOCYTE % (test code = IG%) 0.7 % 0.0-2.0 N LYMPHOCYTE % (test code = LY%) 28.2 % 14-44 N MONOCYTE % (test code = MO%) 17.9 % 4-13 H EOSINOPHIL % (test code = EO%) 1.1 % 0-6 N BASOPHIL % (test code = BA%) 1.1 % 0-2 N NUCLEATED RBC % (test code = NRBC%) 0.0 % 0-1.0 N NEUTROPHIL # (test code = NT#) 2.72 K/mm3 2.0-7.6 N IMMATURE GRANULOCYTE # (test code = IG#) 0.04 x10 3/uL 0-0.03 H LYMPHOCYTE # (test code = LY#) 1.51 K/mm3 1.0-3.8 N MONOCYTE # (test code = MO#) 0.96 K/mm3 0.1-0.8 H EOSINOPHIL # (test code = EO#) 0.06 K/mm3 0.0-0.2 N BASOPHIL # (test code = BA#) 0.06 K/mm3 0.0-0.2 N NUCLEATED RBC # (test code = NRBC#) 0.00 K/mm3 0.0-0.1 N Prepare Leuko-Red [id number] 23:55:00* Test Item Value Reference Range Interpretation Comme nts CROSSMATCH (test code = 2264) COMPATIBLE Unit ABO (test code = 4181093) O Pos UNIT NUMBER (test code = 934-0) [id number] Status (test code = 6621203) TX_TIMEINCHART Blood Bank Product (test cod e = 2263) RED BLOOD CELLS PRODUCT CODE (test code = 933-2) [id number] [facility] [id number] 23:55:00* Test Item Value Reference Range Interpretation Comme nts CROSSMATCH (test code = 2264) COMPATIBLE Unit ABO (test code = 3029376) O Pos UNIT NUMBER (test code = 934-0) [id number] Status (test code = 8383289) [facility] Blood [facility] Product (test cod e = 2263) RED BLOOD CELLS PRODUCT CODE (test code = 933-2) [id number] [facility] [id number] 23:55:00* Test Item Value Reference Range Interpretation Comme nts CROSSMATCH (test code = 2264) COMPATIBLE Unit ABO (test code = 2961474) O Pos UNIT NUMBER (test code = 934-0) [id number] Status (test code = 4797929) TX_TIMEINCHART Blood Bank Product (test cod e = 2263) RED BLOOD CELLS PRODUCT CODE (test code = 933-2) [id number] [facility]ucose [id number] 20:55:44* Test Item Value Reference Range Interpretation Comme [facility] POC-Glucose Meter (test code = 1538) 92 mg/dL 70-110 : TESTED AT [place] [address]: [employer]/Maintainer Operator ID = [id number] for Rajinder (divFlt), Vondi Lab Interpretation (test code = 96769-4) Normal [facility] [id number] 20:55:44* Test Item Value Reference Range Interpretation Comme nts POC-Glucose Meter (test code = 1538) 92 mg/dL 70-110 : TESTED AT [place] [address]: [employer]/Maintainer Operator ID = [id number] for Calvillo (divFlt), Vondi Lab Interpretation (test code = 52018-4) Normal [facility] [id number] 20:55:44* Test Item Value Reference Range Interpretation Comme nts POC-Glucose Meter (test code = 1538) 92 mg/dL 70-110 : TESTED AT [place] [address]: [employer]/Maintainer Operator ID = [id number] for Calvillo (divFlt), Vondi Lab Interpretation (test code = 81739-9) [facility] [id number] 20:55:44* Test Item Value Reference Range Interpretation Comme nts POC-GLUCOSE METER (BEAKER) (test code = 1538) 92 mg/dL 70-110 : TESTED AT [place] [address]: [employer]/Maintainer Operator ID = [id number] for Calvillo (divFlt), Vondi POCT-GLUCOSE [id number] 16:32:58* Test Item Value Reference Range Interpretation Comme nts POC-GLUCOSE METER (BEAKER) (test code = 1538) 103 mg/dL 70-110 : TESTED AT [place] [address]: [employer]/Maintainer Operator ID = [id number] for Tamika Small POCT-GLUCOSE [id number] 12:34:30* Test Item Value Reference Range Interpretation Comme nts POC-GLUCOSE METER (BEAKER) (test code = 1538) 92 mg/dL 70-110 : TESTED AT [place] [address]: [employer]ber/Maintainer Operator ID = [id number] for Tamika Small POCT-GLUCOSE [id number] 07:13:38* Test Item Value Reference Range Interpretation Comme nts POC-GLUCOSE METER (BEAKER) (test code = 1538) 90 mg/dL 70-110 : TESTED AT [facility] [address] [facility] [address]: [employer]ber/Maintainer Operator ID = [id number] for Bora Cox COMPREHENSIVE METABOLIC [id number] 05:27:09* Test Item Value Reference Range Interpretation Comme nts TOTAL PROTEIN (BEAKER) (test code = 770) 5.7 gm/dL 6.0-8.5 L ALBUMIN (BEAKER) (test code = 1145) 2.4 g/dL 3.5-5.0 L ALKALINE PHOSPHATASE (BEAKER) (test code = 346) 101 U/L 30-115 BILIRUBIN TOTAL (BEAKER) (test code = 377) 1.9 mg/dL 0.1-1.2 H SODIUM (BEAKER) (test code = 381) 134 meq/L 135-148 L POTASSIUM (BEAKER) (test code = 379) 3.8 meq/L 3.6-5.5 CHLORIDE (BEAKER) (test code = 382) 105 meq/L 98-106 CO2 (BEAKER) (test code = 355) 23 meq/L 20-29 BLOOD UREA NITROGEN (BEAKER) (test code = 354) 9 mg/dL 10-26 L CREATININE (BEAKER) (test code = 358) 0.76 mg/dL 0.50-1.20 GLUCOSE RANDOM (BEAKER) (test code = 652) 92 mg/dL 70-110 CALCIUM (BEAKER) (test code = 697) 7.6 mg/dL 8.5-10.5 L AST (SGOT) (BEAKER) (test code = 353) 41 U/L 5-40 H ALT (SGPT) (BEAKER) (test code = 347) 20 U/L 5-50 EGFR (BEAKER) (test code = 1092) 104 mL/min/1.73 sq m Interpretation of eG FR values Stage Description Result G1 Normal or high >=90 G2 Mildly decreased 60-89 G3a Mildly to moderately 45-59 G3b Moderately to severely 30-44 G4 Severly decreased 15-29 G5 Kidney failure <15Reported eGFR is based on the CKD-EPI 2020 equation that does not use a race coefficientEstimated GFR is not as accurate as Creatinine Clearance in predicting glomerular filtration rate. Estimated GFR is not applicable for dialysis patients [employer] ID - LITOOperator ID - LITOOperator ID - LITOOperator ID - LITOOperator ID - LITOOperator ID - LITOOperator ID - LITOOperator ID - LITOOperator ID - LITOOperator ID - LITOOperator ID - LITOOperator ID - LITOOperator ID - LITOOperator ID - LITOOperator ID - LITOOperator ID - [id number] 05:25:25* Test Item Value Reference Range Interpretation Comme nts MAGNESIUM (BEAKER) (test cod e = 627) 1.7 mg/dL 1.5-3.0 [employer] ID - LITOOperator ID - LITOOperator ID - LITOOperator ID - LITOCBC W/PLT COUNT & AUTO [id number] 05:10:07* Test Item Value Reference Range Interpretation Comme nts WHITE BLOOD CELL COUNT (BEAK ER) (test code = 775) 6.9 K/ L 4.0-10.0 RED BLOOD CELL COUNT (BEAKER ) (test code = 761) 2.91 M/ L 4.20-5.80 L HEMOGLOBIN (BEAKER) (test co de = 410) 8.4 GM/DL 13.0-16.8 L HEMATOCRIT (BEAKER) (test co de = 411) 25.4 % 36.0-50.0 L MEAN CORPUSCULAR VOLUME (CHERELLE KER) (test code = 753) 87 fL 82-99 MEAN CORPUSCULAR HEMOGLOBIN (BEAKER) (test code = 751) 28.9 pg 27.0-33.0 MEAN CORPUSCULAR HEMOGLOBIN CONC (BEAKER) (test code = 752) 33.1 GM/DL 32.0-36.0 RED CELL DISTRIBUTION WIDTH (BEAKER) (test code = 412) 19.8 % 12.0-15.0 H PLATELET COUNT (BEAKER) (rudy t code = 756) 121 K/CU MM 150-430 L MEAN PLATELET VOLUME (BEAKER ) (test code = 754) 10.3 fL 6.0-11.5 NUCLEATED RED BLOOD CELLS (BEAKER) (test code = 413) 0 /100 WBC 0-0 NEUTROPHILS RELATIVE PERCENT (BEAKER) (test code = 429) 60 % LYMPHOCYTES RELATIVE PERCENT (BEAKER) (test code = 430) 24 % MONOCYTES RELATIVE PERCENT (BEAKER) (test code = 431) 12 % EOSINOPHILS RELATIVE PERCENT (BEAKER) (test code = 432) 4 % BASOPHILS RELATIVE PERCENT (BEAKER) (test code = 437) 1 % NEUTROPHILS ABSOLUTE COUNT (BEAKER) (test code = 670) 4.11 K/ L 1.80-8.00 LYMPHOCYTES ABSOLUTE COUNT (BEAKER) (test code = 414) 1.66 K/ L 1.48-4.50 MONOCYTES ABSOLUTE COUNT (BE GUZMAN) (test code = 415) 0.82 K/ L 0.00-1.30 EOSINOPHILS ABSOLUTE COUNT (BEAKER) (test code = 416) 0.24 K/ L 0.00-0.50 BASOPHILS ABSOLUTE COUNT (BE GUZMAN) (test code = 417) 0.04 K/ L 0.00-0.20 IMMATURE GRANULOCYTES-RELATI VE PERCENT (BEAKER) (test code = 2801) 0.10 % 0.00-0.00 H POCT-GLUCOSE [id number] 20:29:05* Test Item Value Reference Range Interpretation Comme nts POC-GLUCOSE METER (BEAKER) (test code = 1538) 109 mg/dL 70-110 : TESTED AT [place] [address]: He[employer]ber/Maintainer Operator ID = [id number] for Bora Cox POCT-GLUCOSE [id number] 16:32:42* Test Item Value Reference Range Interpretation Comme nts POC-GLUCOSE METER (BEAKER) (test code = 1538) 93 mg/dL 70-110 : TESTED AT [place] [address]: Heel Se[employer] Rubber/Maintainer Operator ID = [id number] for Olga Smith POCT-GLUCOSE [id number] 12:28:53* Test Item Value Reference Range Interpretation Comme nts POC-GLUCOSE METER (BEAKER) (test code = 1538) 125 mg/dL 70-110 H : TESTED AT [place] [address]: Heel Se[employer] Rubber/Maintainer Operator ID = [id number] for Olga Smith COMPREHENSIVE METABOLIC [id number] 06:59:05* Test Item Value Reference Range Interpretation Comme nts TOTAL PROTEIN (BEAKER) (test code = 770) 5.6 gm/dL 6.0-8.5 L ALBUMIN (BEAKER) (test code = 1145) 2.3 g/dL 3.5-5.0 L ALKALINE PHOSPHATASE (BEAKER) (test code = 346) 69 U/L 30-115 BILIRUBIN TOTAL (BEAKER) (test code = 377) 1.6 mg/dL 0.1-1.2 H SODIUM (BEAKER) (test code = 381) 134 meq/L 135-148 L POTASSIUM (BEAKER) (test code = 379) 3.6 meq/L 3.6-5.5 CHLORIDE (BEAKER) (test code = 382) 104 meq/L 98-106 CO2 (BEAKER) (test code = 355) 23 meq/L 20-29 BLOOD UREA NITROGEN (BEAKER) (test code = 354) 6 mg/dL 10-26 L CREATININE (BEAKER) (test code = 358) 0.77 mg/dL 0.50-1.20 GLUCOSE RANDOM (BEAKER) (test code = 652) 149 mg/dL 70-110 H CALCIUM (BEAKER) (test code = 697) 7.3 mg/dL 8.5-10.5 L AST (SGOT) (BEAKER) (test code = 353) 40 U/L 5-40 ALT (SGPT) (BEAKER) (test code = 347) 21 U/L 5-50 EGFR (BEAKER) (test code = 1092) 104 mL/min/1.73 sq m Interpretation of eG FR values Stage Description Result G1 Normal or high >=90 G2 Mildly decreased 60-89 G3a Mildly to moderately 45-59 G3b Moderately to severely 30-44 G4 Severly decreased 15-29 G5 Kidney failure <15Reported eGFR is based on the CKD-EPI 2020 equation that does not use a race coefficientEstimated GFR is not as accurate as Creatinine Clearance in predicting glomerular filtration rate. Estimated GFR is not applicable for dialysis patients Heel [employer]ber ID - LITOOperator ID - LITOOperator ID - LITOOperator ID - LITOOperator ID - LITOOperator ID - LITOOperator ID - LITOOperator ID - LITOOperator ID - LITOOperator ID - LITOOperator ID - LITOOperator ID - LITOOperator ID - LITOOperator ID - LITOOperator ID - LITOOperator ID - [id number] 06:59:00* Test Item Value Reference Range Interpretation Comme nts MAGNESIUM (BEAKER) (test cod e = 627) 1.2 mg/dL 1.5-3.0 L He[employer] ID - LITOOperator ID - LITOOperator ID - LITOOperator ID - LITOCBC W/PLT COUNT & AUTO [id number] 06:38:43* Test Item Value Reference Range Interpretation Comme nts WHITE BLOOD CELL COUNT (BEAK ER) (test code = 775) 5.8 K/ L 4.0-10.0 RED BLOOD CELL COUNT (BEAKER ) (test code = 761) 2.38 M/ L 4.20-5.80 L HEMOGLOBIN (BEAKER) (test co de = 410) 7.1 GM/DL 13.0-16.8 L HEMATOCRIT (BEAKER) (test co de = 411) 21.6 % 36.0-50.0 L MEAN CORPUSCULAR VOLUME (CHERELLE KER) (test code = 753) 91 fL 82-99 MEAN CORPUSCULAR HEMOGLOBIN (BEAKER) (test code = 751) 29.8 pg 27.0-33.0 MEAN CORPUSCULAR HEMOGLOBIN CONC (BEAKER) (test code = 752) 32.9 GM/DL 32.0-36.0 RED CELL DISTRIBUTION WIDTH (BEAKER) (test code = 412) 19.0 % 12.0-15.0 H PLATELET COUNT (BEAKER) (rudy t code = 756) 123 K/CU MM 150-430 L MEAN PLATELET VOLUME (BEAKER ) (test code = 754) 10.1 fL 6.0-11.5 NUCLEATED RED BLOOD CELLS (BEAKER) (test code = 413) 0 /100 WBC 0-0 NEUTROPHILS RELATIVE PERCENT (BEAKER) (test code = 429) 61 % LYMPHOCYTES RELATIVE PERCENT (BEAKER) (test code = 430) 22 % MONOCYTES RELATIVE PERCENT (BEAKER) (test code = 431) 13 % EOSINOPHILS RELATIVE PERCENT (BEAKER) (test code = 432) 3 % BASOPHILS RELATIVE PERCENT (BEAKER) (test code = 437) 1 % NEUTROPHILS ABSOLUTE COUNT (BEAKER) (test code = 670) 3.54 K/ L 1.80-8.00 LYMPHOCYTES ABSOLUTE COUNT (BEAKER) (test code = 414) 1.29 K/ L 1.48-4.50 L MONOCYTES ABSOLUTE COUNT (BE GUZMAN) (test code = 415) 0.73 K/ L 0.00-1.30 EOSINOPHILS ABSOLUTE COUNT (BEAKER) (test code = 416) 0.16 K/ L 0.00-0.50 BASOPHILS ABSOLUTE COUNT (BE GUZMAN) (test code = 417) 0.06 K/ L 0.00-0.20 IMMATURE GRANULOCYTES-RELATI VE PERCENT (BEAKER) (test code = 2801) 0.20 % 0.00-0.00 H POCT-GLUCOSE [id number] 06:11:05* Test Item Value Reference Range Interpretation Comme nts POC-GLUCOSE METER (BEAKER) (test code = 1538) 226 mg/dL 70-110 H : TESTED AT [place] [address]: [employer]ber/Maintainer Operator ID = [id number] for Brock, Ramonica POCT-GLUCOSE [id number] 23:00:40* Test Item Value Reference Range Interpretation Comme nts POC-GLUCOSE METER (BEAKER) (test code = 1538) 128 mg/dL 70-110 H : TESTED AT [place] [address]: [employer]/Maintainer Operator ID = [id number] for Delmy, Ramonica POCT-GLUCOSE [id number] 16:31:46* Test Item Value Reference Range Interpretation Comme nts POC-GLUCOSE METER (BEAKER) (test code = 1538) 137 mg/dL 70-110 H : TESTED AT [place] [address]: [employer]/Maintainer Operator ID = [id number] for Tamika Small US ABDOMEN [id number] 15:14:59 [facility] : 1965 Sex: MAbdominal ultrasound, right upper quadrant, 07/19/2023 2:50 PM.History: cirrhosis.Comparison: 12/26/2021.Discussion: Transverse and longitudinal images of the right upperquadrant of the abdomen were obtaineddemonstrating a liver of normalsize but diffusely increased echogenicity measuring 12.0 cm in length. There is nodularity of the surface contour but no evidence of suspicioushepatic abnormality. The portal vein is patent with hepatopetal flowand is within normal limits measuring 5 mm in diameter. The biliary tree is within normal limits with the common bileduct measuring 3 mm in diameter. The gallbladder contains shadowingstones without wall pericholecystic fluid. Mild gallbladder wallthickening is likely related to hypoproteinemia. The sonographicMurphy's sign was negative. The right kidney is normal in size and echogenicity withoutevidence of hydronephrosis, stones, or mass and measures 9.9 x 4.3 x 5.0cm. The pancreas and aorta are obscured by overlying bowel gas. There dorinda small amountof free fluid.IMPRESSION:1. Cirrhotic liver without focal hepatic abnormality. Minimal ascites ispresent.2. Cholelithiasis without sonographic evidence of cholecystitis.Electronically Signed By: Saúl Carver09/19/2022 15:17 CDTWorkstation Name: [id number] FETOPROTEIN (AFP), TUMOR MARKER 2023-07-19 13:21:03* Test Item Value Reference Range Interpretation Comme nts ALPHA-FETOPROTEIN (BEAKER) ( test code = 1094) 7.9 ng/mL <10.0 [employer] ID - ADMINPOCT-GLUCOSE [id number] 12:29:28* Test Item Value Reference Range Interpretation Comme nts POC-GLUCOSE METER (BEAKER) (test code = 1538) 105 mg/dL 70-110 : TESTED AT [address] [address]: [employer]ber/Maintainer Operator ID = [id number] for Tamika Small POCT-GLUCOSE [id number] 06:36:24* Test Item Value Reference Range Interpretation Comme nts POC-GLUCOSE METER (BEAKER) (test code = 1538) 134 mg/dL 70-110 H : TESTED AT [facility] [address] [facility] [facility] [address]: Heel Seam Rubber/Maintainer Operator ID = [id number] for Bora Cox COMPREHENSIVE METABOLIC [id number] 03:47:06* Test Item Value Reference Range Interpretation Comme nts TOTAL PROTEIN (BEAKER) (test code = 770) 5.4 gm/dL 6.0-8.5 L ALBUMIN (BEAKER) (test code = 1145) 2.3 g/dL 3.5-5.0 L ALKALINE PHOSPHATASE (BEAKER) (test code = 346) 85 U/L 30-115 BILIRUBIN TOTAL (BEAKER) (test code = 377) 1.6 mg/dL 0.1-1.2 H SODIUM (BEAKER) (test code = 381) 133 meq/L 135-148 L POTASSIUM (BEAKER) (test code = 379) 4.2 meq/L 3.6-5.5 CHLORIDE (BEAKER) (test code = 382) 105 meq/L 98-106 CO2 (BEAKER) (test code = 355) 24 meq/L 20-29 BLOOD UREA NITROGEN (BEAKER) (test code = 354) 11 mg/dL 10-26 CREATININE (BEAKER) (test code = 358) 0.75 mg/dL 0.50-1.20 GLUCOSE RANDOM (BEAKER) (test code = 652) 119 mg/dL 70-110 H CALCIUM (BEAKER) (test code = 697) 7.2 mg/dL 8.5-10.5 L AST (SGOT) (BEAKER) (test code = 353) 49 U/L 5-40 H ALT (SGPT) (BEAKER) (test code = 347) 24 U/L 5-50 EGFR (BEAKER) (test code = 1092) 105 mL/min/1.73 sq m Interpretation of eG FR values Stage Description Result G1 Normal or high >=90 G2 Mildly decreased 60-89 G3a Mildly to moderately 45-59 G3b Moderately to severely 30-44 G4 Severly decreased 15-29 G5 Kidney failure <15Reported eGFR is based on the CKD-EPI 2020 equation that does not use a race coefficientEstimated GFR is not as accurate as Creatinine Clearance in predicting glomerular filtration rate. Estimated GFR is not applicable for dialysis patients Heel Seam Rubber ID - LEVIOTAOperator ID - LEVIOTAOperator ID - LEVIOTAOperator ID - LEVIOTAOperator ID - LEVIOTAOperator ID - LEVIOTAOperator ID - LEVIOTAOperator ID - LEVIOTAOperator ID - LEVIOTAOperator ID - LEVIOTAOperator ID - LEVIOTAOperator ID - LEVIOTAOperator ID - LEVIOTAOperator ID - LEVIOTAOperator ID - LEVIOTAOperator ID - [id number] 03:46:36* Test Item Value Reference Range Interpretation Comme nts MAGNESIUM (BEAKER) (test cod e = 627) 1.4 mg/dL 1.5-3.0 L Heel Seam Rubber ID - LEVIOTAOperator ID - LEVIOTAOperator ID - LEVIOTAOperator ID - LEVIOTACBC W/PLT COUNT & AUTO [id number] 03:26:27* Test Item Value Reference Range Interpretation Comme nts WHITE BLOOD CELL COUNT (BEAK ER) (test code = 775) 4.7 K/ L 4.0-10.0 RED BLOOD CELL COUNT (BEAKER ) (test code = 761) 2.49 M/ L 4.20-5.80 L HEMOGLOBIN (BEAKER) (test co de = 410) 7.2 GM/DL 13.0-16.8 L HEMATOCRIT (BEAKER) (test co de = 411) 22.6 % 36.0-50.0 L MEAN CORPUSCULAR VOLUME (CHERELLE KER) (test code = 753) 91 fL 82-99 MEAN CORPUSCULAR HEMOGLOBIN (BEAKER) (test code = 751) 28.9 pg 27.0-33.0 MEAN CORPUSCULAR HEMOGLOBIN CONC (BEAKER) (test code = 752) 31.9 GM/DL 32.0-36.0 L RED CELL DISTRIBUTION WIDTH (BEAKER) (test code = 412) 20.0 % 12.0-15.0 H PLATELET COUNT (BEAKER) (rudy t code = 756) 131 K/CU MM 150-430 L MEAN PLATELET VOLUME (BEAKER ) (test code = 754) 10.4 fL 6.0-11.5 NUCLEATED RED BLOOD CELLS (BEAKER) (test code = 413) 0 /100 WBC 0-0 NEUTROPHILS RELATIVE PERCENT (BEAKER) (test code = 429) 46 % LYMPHOCYTES RELATIVE PERCENT (BEAKER) (test code = 430) 35 % MONOCYTES RELATIVE PERCENT (BEAKER) (test code = 431) 16 % EOSINOPHILS RELATIVE PERCENT (BEAKER) (test code = 432) 2 % BASOPHILS RELATIVE PERCENT (BEAKER) (test code = 437) 1 % NEUTROPHILS ABSOLUTE COUNT (BEAKER) (test code = 670) 2.16 K/ L 1.80-8.00 LYMPHOCYTES ABSOLUTE COUNT (BEAKER) (test code = 414) 1.66 K/ L 1.48-4.50 MONOCYTES ABSOLUTE COUNT (BE GUZMAN) (test code = 415) 0.74 K/ L 0.00-1.30 EOSINOPHILS ABSOLUTE COUNT (BEAKER) (test code = 416) 0.09 K/ L 0.00-0.50 BASOPHILS ABSOLUTE COUNT (BE GUZMAN) (test code = 417) 0.05 K/ L 0.00-0.20 IMMATURE GRANULOCYTES-RELATI VE PERCENT (BEAKER) (test code = 2801) 0.20 % 0.00-0.00 H POCT-GLUCOSE [id number] 20:37:09* Test Item Value Reference Range Interpretation Comme [facility] POC-GLUCOSE METER (BEAKER) (test code = 1538) 211 mg/dL 70-110 H : TESTED AT [address] [address]: Heel Seam Rubber/Maintainer Operator ID = [id number] for Bora Cox CBC W/PLT COUNT & AUTO [id number] 10:44:09* Test Item Value Reference Range Interpretation Comme nts WHITE BLOOD CELL COUNT (BEAK ER) (test code = 775) 6.4 K/ L 4.0-10.0 RED BLOOD CELL COUNT (BEAKER ) (test code = 761) 2.76 M/ L 4.20-5.80 L HEMOGLOBIN (BEAKER) (test co de = 410) 7.9 GM/DL 13.0-16.8 L HEMATOCRIT (BEAKER) (test co de = 411) 24.4 % 36.0-50.0 L MEAN CORPUSCULAR VOLUME (CHERELLE KER) (test code = 753) 88 fL 82-99 MEAN CORPUSCULAR HEMOGLOBIN (BEAKER) (test code = 751) 28.6 pg 27.0-33.0 MEAN CORPUSCULAR HEMOGLOBIN CONC (BEAKER) (test code = 752) 32.4 GM/DL 32.0-36.0 RED CELL DISTRIBUTION WIDTH (BEAKER) (test code = 412) 20.2 % 12.0-15.0 H PLATELET COUNT (BEAKER) (rudy t code = 756) 97 K/CU MM 150-430 L MEAN PLATELET VOLUME (BEAKER ) (test code = 754) 13.3 fL 6.0-11.5 H NUCLEATED RED BLOOD CELLS (B EAKER) (test code = 413) 0 /100 WBC 0-0 NEUTROPHILS RELATIVE PERCENT (BEAKER) (test code = 429) 63 % LYMPHOCYTES RELATIVE PERCENT (BEAKER) (test code = 430) 22 % MONOCYTES RELATIVE PERCENT (BEAKER) (test code = 431) 13 % EOSINOPHILS RELATIVE PERCENT (BEAKER) (test code = 432) 1 % BASOPHILS RELATIVE PERCENT (BEAKER) (test code = 437) 1 % NEUTROPHILS ABSOLUTE COUNT (BEAKER) (test code = 670) 4.02 K/ L 1.80-8.00 LYMPHOCYTES ABSOLUTE COUNT (BEAKER) (test code = 414) 1.39 K/ L 1.48-4.50 L MONOCYTES ABSOLUTE COUNT (BE GUZMAN) (test code = 415) 0.80 K/ L 0.00-1.30 EOSINOPHILS ABSOLUTE COUNT (BEAKER) (test code = 416) 0.08 K/ L 0.00-0.50 BASOPHILS ABSOLUTE COUNT (BE GUZMAN) (test code = 417) 0.07 K/ L 0.00-0.20 IMMATURE GRANULOCYTES-RELATI VE PERCENT (BEAKER) (test code = 2801) 0.60 % 0.00-0.00 H (MANUAL DIFFERENTIAL)2023-07-18 10:44:09* Test Item Value Reference Range Interpretation Comme nts TOTAL COUNTED (BEAKER) (test code = 1351) WBC MORPHOLOGY (BEAKER) (test code = 487) Normal RBC MORPHOLOGY (BEAKER) (test code = 762) Normal CLUMPED PLATELETS (BEAKER) (test code = 436) Present Few platelet clu mps found on smear, actual result might be higher than this HEMOGLOBIN [id number] 10:40:06* Test Item Value Reference Range Interpretation Comme nts HEMOGLOBIN A1C (BEAKER) (rudy t code = 368) 5.1 % 4.3-6.1 Heel Seam Rubber ID - DSENSONLIPID [id number] 10:28:41* Test Item Value Reference Range Interpretation Comme nts TRIGLYCERIDES (BEAKER) (test code = 540) 51 mg/dL CHOLESTEROL (BEAKER) (test c ode = 631) 79 mg/dL HDL CHOLESTEROL (BEAKER) (te st code = 976) 26 mg/dL LDL CHOLESTEROL CALCULATED ( BEAKER) (test code = 633) 43 mg/dL Triglyceride Reference Range: Low Risk <150 Borderline 150-199 High Risk 200-499 Very High Risk >=500Cholesterol Reference Range: Low Risk <200 Borderline 200-239 High Risk >240HDL Cholesterol Reference Range: Low Risk >=60 High Risk <40LDL Cholesterol Reference Range: Optimal <100 Near Optimal 100-129 Borderline 130-159 High 160-189 Very High >=190 Heel Seam Rubber ID - DSENSONOperator ID - DSENSONOperator ID - DSENSONCOMPREHENSIVE METABOLIC [id number] 10:26:14* Test Item Value Reference Range Interpretation Comme nts TOTAL PROTEIN (BEAKER) (test code = 770) 6.0 gm/dL 6.0-8.5 ALBUMIN (BEAKER) (test code = 1145) 2.5 g/dL 3.5-5.0 L ALKALINE PHOSPHATASE (BEAKER) (test code = 346) 133 U/L 30-115 H BILIRUBIN TOTAL (BEAKER) (test code = 377) 1.2 mg/dL 0.1-1.2 SODIUM (BEAKER) (test code = 381) 141 meq/L 135-148 POTASSIUM (BEAKER) (test code = 379) 4.5 meq/L 3.6-5.5 CHLORIDE (BEAKER) (test code = 382) 112 meq/L 98-106 H CO2 (BEAKER) (test code = 355) 20 meq/L 20-29 BLOOD UREA NITROGEN (BEAKER) (test code = 354) 12 mg/dL 10-26 CREATININE (BEAKER) (test code = 358) 0.73 mg/dL 0.50-1.20 GLUCOSE RANDOM (MIGUELAKER) (test code = 652) 91 mg/dL 70-110 CALCIUM (BEAKER) (test code = 697) 7.6 mg/dL 8.5-10.5 L AST (SGOT) (BEAKER) (test code = 353) 58 U/L 5-40 H ALT (SGPT) (BEAKER) (test code = 347) 27 U/L 5-50 EGFR (MIGUELAKER) (test code = 1092) 105 mL/min/1.73 sq m Interpretation of eG FR values Stage Description Result G1 Normal or high >=90 G2 Mildly decreased 60-89 G3a Mildly to moderately 45-59 G3b Moderately to severely 30-44 G4 Severly decreased 15-29 G5 Kidney failure <15Reported eGFR is based on the CKD-EPI 2020 equation that does not use a race coefficientEstimated GFR is not as accurate as Creatinine Clearance in predicting glomerular filtration rate. Estimated GFR is not applicable for dialysis patients Heel Seam Rubber ID - DSENSONOperator ID - DSENSONOperator ID - DSENSONOperator ID - DSENSONOperator ID - DSENSONOperator ID - DSENSONOperator ID - DSENSONOperator ID - DSENSONOperator ID - DSENSONOperator ID - DSENSONOperator ID - DSENSONOperator ID - DSENSONOperator ID - DSENSONOperator ID - DSENSONOperator ID - DSENSONOperator ID - [id number] 10:23:20* Test Item Value Reference Range Interpretation Comme nts MAGNESIUM (ALCIDES) (test cod e = 627) 1.6 mg/dL 1.5-3.0 Heel Seam Rubber ID - DSENSONOperator ID - DSENSONOperator ID - DSENSONOperator ID - DSENSONMetyLyte 8 Panel *OW* [id number] 21:49:00* Test Item Value Reference Range Interpretation Comme nts GLUCOSE (test code = GGUL) 109 mg/dL 73-118 BUN (test code = GBUN) 7 mg/dL 7-22 CREATININE (test code = GCRE) 1.0 mg/dL 0.6-1.2 CK TOTAL (test code = GCK) 131 U/L 39-380 SODIUM (test code = GNA+) 143 mmol/L 128-145 POTASSIUM (test code = GK+) 4.2 mmol/L 3.6-5.1 CHLORIDE (test code = GCL-) 117 mmol/L 98-108 H TCO2 (test code = GTC02) 29 mmol/L 18-33 XR KNEE LEFT 3 VIEWS *OW*2023-03-26 21:35:28 [facility] : 1965 Sex: MEXAMINATION:XR KNEE 3 VIEWS LEFTHISTORY/INDICATION: <OBR.31.2>fall</OBR.31.2><OBR.31.2>Traumatic injury</OBR.31.2>;Rib painCOMPARISON: None.VIEWS SUBMITTED: AP, oblique and lateral views of the left knee. FINDINGS: A bipartite patella is noted. There is no acute fracture or dislocation.Joint spaces are preserved. There is mild infrapatellar soft tissue swelling. There is no joint effusion.IMPRESSION: 1. Mild infrapatellar soft tissue swelling without acute osseous abnormality.Electr onically signed by: Bhargavi Starks MD 03/26/2023 9:35 PM CDT GENERAL CHEMISTRY 13 *OW* [id number] 21:33:00* Test Item Value Reference Range Interpretation Comme nts GLUCOSE (test code = GGUL) 109 mg/dL 73-118 BUN (test code = GBUN) 5 mg/dL 7-22 L CREATININE (test code = GCRE) 1.2 mg/dL 0.6-1.2 URIC ACID (test code = GUA) 6.5 mg/dL 3.6-8.0 CALCIUM (test code = GCL+) 8.5 mg/dL 8.0-10.3 ALBUMIN (test code = GALB) 2.9 g/dL 3.5-5.5 L PROTEIN (test code = GTP) 7.0 g/dL 6.4-8.1 ALT (test code = GALT) 21 U/L 10-47 AST (test code = BROOKLYN) 61 U/L 11-38 H ALK PHOS (test code = GALP) 126 U/L 53-128 BILI TOTAL (test code = GTBIL) 0.8 mg/dL 0.2-1.6 GGT (test code = GGGT) 80 U/L 5-65 H AMYLASE (test code = GAMY) 113 U/L 14-97 H TROPONIN I OW2023-03-26 21:31:00* Test Item Value Reference Range Interpretation Comme nts TROPONIN I (test code = GTPI) <0.05 ng/mL See_Comment [Automated messa ge] The system which generated this result transmitted reference range: <=0.05. The reference range was not used to interpret this result as normal/abnormal. CBC (INCLUDES AUTOMATED DIFFERENTIAL) *2023-03-26 21:23:00* Test Item Value Reference Range Interpretation Comme nts WBC (test code = WBC) 5.6 10\\S\\3/uL 4.5-11.0 RBC (test code = RBC) 3.05 10\\S\\6/uL 4.20-5.60 L HGB (test code = HBG) 9.2 g/dL 14.0-18.0 L HCT (test code = HCT) 30.1 % 35.0-46.0 L MCV (test code = MCV) 98.7 fL 80.0-94.0 H MCH (test code = MCH) 30.2 pg 27.0-31.0 MCHC (test code = MCHC) 30.6 g/dL 32.0-36.0 L RDW (test code = RDW) 17.4 % 11.5-14.5 H PLT (test code = PLT) 260 10\\S\\3/uL 130-400 MPV (test code = OMPV) 7.8 fL 6.2-10.2 NEUTROP # (test code = NE#) 2.8 10\\S\\3/uL 2.0-8.0 LYMPH # (test code = LY#) 1.8 10\\S\\3/uL 1.2-4.0 MID # (test code = GMID#) 1.0 10\\S\\3/uL 0.0-1.1 GRAN % (test code = GRA%) 49.3 % 35.0-73.0 LYMPH % (test code = GLY%) 32.5 % 20.0-55.0 MID % (test code = GMID%) 18.2 % 0.0-10.[address] CHEST W/O CONTRAST *OW*2023-03-26 21:01:49 [facility] : 1965 Sex: MLOCATION: Q15 HISTORY: 57-year-old male presents with rib cage pain following trauma.COMMENT: Axial CT imaging ofthis patient's chest was obtained from the thoracic inlet to the upper abdomen. Soft tissue and lung window images were submitted in the axial plane. Coronal and sagittal reconstructions were included.Unless otherwise specified, incidental findings do not require dedicated imaging follow-up.One or more of the following dose reduction techniques were used: Automated exposure control, adjustment ofthe mA and/or kV according the patient size, and/or utilization of iterative reconstruction technique.CONTRAST: NoneFINDINGS:The lungs are clear and well-aerated.The cardiac silhouette and the thoracic vasculature is unremarkable. There is no adenopathy present and no pleural effusions present. Thethoracic inlet and chest wall soft tissues are unremarkable.There are multiple subacute healing fracture seen in the left lateral chest wall involving the second through eighth ribs. No acute rib inju real are seen. The dorsal spine is intact.In the upper abdomen there is a trace of ascites seen adjacent to the liver. The liver surface is mildly nodular, suggestive of cirrhosis. The spleen does not appear enlarged. Cholelithiasis is demonstrated.IMPRESSION:There are no acute rib injuries in thispatient's chest. Multiple healing fractures are seen in the left lateral chest wall as outlined above.No acute findings seen elsewhere in the chest areIn the upper abdomen the liver demonstrates cirrhotic changes, and a trace of ascites is seen in the right upper quadrant adjacent to the liver.Cholelithiasis is demonstratedElectronically signed by: Oscar Alston MD 03/26/2023 9:01 PM CDT -UbK (RAPID ANTIGEN) WH2023-03-25 06:07:00* Test Item Value Reference Range Interpretation Comme nts SARS-CoV (ANTIGEN) (test code = COVAG) negative NEGATIVE COVID AG (test code = COVAGC) This test has been marketed under the FDA Emergency Use Authorization (EUA) to meet challenges of the COVID-19 pandemic. The validation standards normally enforced by the FDA and the [employer] ([employer]) are more stringent than those required for this test. Therefore, the result should be interpreted with caution and close attention to other clinical and epidemiological data ALCOHOL BLOOD (ETOH)2023-03-25 04:08:00* Test Item Value Reference Range Interpretation Comme nts ETOH (test code = HALC) ETHANOL The result is to be used only for medical purposes ALCOHOL (test code = 56A) 417 mg/dL See_Comment H [Automated MangoPlatea ge] The system which generated this result transmitted reference range: <=10. The reference range was not used to interpret this result as normal/abnormal. DRUGS OF ABUSE*OW*2023-03-24 23:13:00* Test Item Value Reference Range Interpretation Comme nts DRUG SCRN (test code = HDOA) URINE DRUG SCREEN This is an unconfirmed screening result and should not be used for non-medical purposes PHENCYCLID (test code = GPCP) Negative NEGATIVE BENZODIAZE (test code = GBZO) Positive NEGATIVE A COCAINE (test code = GCOC) Negative NEGATIVE AMPHETAMIN (test code = GAMP) Negative NEGATIVE THC (test code = GTHC) Negative NEGATIVE OPIATES (test code = FRANCESCA) Negative NEGATIVE BARBITURAT (test code = GBAR) Negative NEGATIVE TCA (test code = GTCA) Positive NEGATIVE A DOAH (test code = DOAH) URINE DRUG SCREEN CUT OFF VALUES Amphetamines 1000 ng/mL Barbiturates 300 ng/mL Benzodiazepines 300 ng/mL Cocaine 300 ng/mL Opiates 300 ng/mL Phencyclidine 25 ng/mL THC 50 ng/mL Tricyclic Antidepressants 1000 ng/mL MetyLyte 8 Panel *OW* [id number] 22:39:00* Test Item Value Reference Range Interpretation Comme nts GLUCOSE (test code = GGUL) 92 mg/dL 73-118 BUN (test code = GBUN) 8 mg/dL 7-22 CREATININE (test code = GCRE) 0.8 mg/dL 0.6-1.2 CK TOTAL (test code = GCK) 171 U/L 39-380 SODIUM (test code = GNA+) 139 mmol/L 128-145 POTASSIUM (test code = GK+) 4.7 mmol/L 3.6-5.1 CHLORIDE (test code = GCL-) 106 mmol/L 98-108 TCO2 (test code = GTC02) 27 mmol/L 18-33 CBC (INCLUDES AUTOMATED DIFFERENTIAL) *2023-03-24 22:21:00* Test Item Value Reference Range Interpretation Comme nts WBC (test code = WBC) 5.6 10\\S\\3/uL 4.5-11.0 RBC (test code = RBC) 2.94 10\\S\\6/uL 4.20-5.60 L HGB (test code = HBG) 8.8 g/dL 14.0-18.0 L HCT (test code = HCT) 29.0 % 35.0-46.0 L MCV (test code = MCV) 98.6 fL 80.0-94.0 H MCH (test code = MCH) 29.9 pg 27.0-31.0 MCHC (test code = MCHC) 30.3 g/dL 32.0-36.0 L RDW (test code = RDW) 18.3 % 11.5-14.5 H PLT (test code = PLT) 205 10\\S\\3/uL 130-400 MPV (test code = OMPV) 7.9 fL 6.2-10.2 NEUTROP # (test code = NE#) 2.7 10\\S\\3/uL 2.0-8.0 LYMPH # (test code = LY#) 1.7 10\\S\\3/uL 1.2-4.0 MID # (test code = GMID#) 1.2 10\\S\\3/uL 0.0-1.1 H GRAN % (test code = GRA%) 47.9 % 35.0-73.0 LYMPH % (test code = GLY%) 30.6 % 20.0-55.0 MID % (test code = GMID%) 21.5 % 0.0-10.0 H GENERAL CHEMISTRY 13 *OW* [id number] 22:21:00* Test Item Value Reference Range Interpretation Comme nts GLUCOSE (test code = GGUL) 95 mg/dL 73-118 BUN (test code = GBUN) 7 mg/dL 7-22 CREATININE (test code = GCRE) 1.0 mg/dL 0.6-1.2 URIC ACID (test code = GUA) 6.6 mg/dL 3.6-8.0 CALCIUM (test code = GCL+) 8.3 mg/dL 8.0-10.3 ALBUMIN (test code = GALB) 2.9 g/dL 3.5-5.5 L PROTEIN (test code = GTP) 7.2 g/dL 6.4-8.1 ALT (test code = GALT) 20 U/L 10-47 AST (test code = BROOKLYN) 61 U/L 11-38 H ALK PHOS (test code = GALP) 177 U/L 53-128 H BILI TOTAL (test code = GTBIL) 0.7 mg/dL 0.2-1.6 GGT (test code = GGGT) 75 U/L 5-65 H AMYLASE (test code = GAMY) 123 U/L 14-97 H MetyLyte 8 Panel *OW* [id number] 19:40:00* Test Item Value Reference Range Interpretation Comme [...] mmol/L 18-33 CBC (INCLUDES AUTOMATED DIFFERENTIAL) *2023-01-01 19:30:00* Test Item Value Reference Range Interpretation Comme nts WBC (test code = WBC) 8.4 10\\S\\3/uL [...] code = GMID%) 15.6 % 0.0-10.0 H POC-Glucose [id number] 12:13:20* Test Item Value Reference Range Interpretation Comme nts POC-Glucose Meter (test code = 1538) 109 mg/dL 70-110 : TESTED AT [place] [address]: Heel Seam Rubber/Maintainer Operator ID = [id number] for Hayde Olvera Lab Interpretation (test code = 85044-3) [facility] [id number] 12:13:20* Test Item Value Reference Range Interpretation Comme nts POC-Glucose Meter (test code = 1538) 109 mg/dL 70-110 : TESTED AT [place] [address]: Heel Seam Rubber/Maintainer Operator ID = [id number] for Hayde Olvera Lab Interpretation (test code = 87688-6) [facility] [id number] 12:13:20* Test Item Value Reference Range Interpretation Comme nts POC-Glucose Meter (test code = 1538) 109 mg/dL 70-110 : TESTED AT [place] [address]: Heel Seam Rubber/Maintainer Operator ID = [id number] for Hayde Olvera Lab Interpretation (test code = 85214-2) [facility] [id number] 12:13:20* Test Item Value Reference Range Interpretation Comme nts POC-Glucose Meter (test code = 1538) 109 mg/dL 70-110 : TESTED AT [place] [address]: Heel Seam Rubber/Maintainer Operator ID = [id number] for Hayde Olvera Lab Interpretation (test code = 01968-5) [facility] [id number] 12:13:20* Test Item Value Reference Range Interpretation Comme nts POC-Glucose Meter (test code = 1538) 109 mg/dL 70-110 : TESTED AT [place] [address]: Heel Seam Rubber/Maintainer Operator ID = [id number] for Nunu Olveraa Lab Interpretation (test code = 15842-9) [facility] [id number] 12:13:20* Test Item Value Reference Range Interpretation Comme nts POC-Glucose Meter (test code = 1538) 109 mg/dL 70-110 : TESTED AT [place] [address]: Heel Seam Rubber/Maintainer Operator ID = [id number] for Nunu Olveraa Lab Interpretation (test code = 46539-6) [facility] [id number] 12:13:20* Test Item Value Reference Range Interpretation Comme nts POC-Glucose Meter (test code = 1538) 109 mg/dL 70-110 : TESTED AT [place] [address]: Heel Seam Rubber/Maintainer Operator ID = [id number] for Nunu Olveraa Lab Interpretation (test code = 51559-1) [facility] [id number] 12:13:20* Test Item Value Reference Range Interpretation Comme nts POC-Glucose Meter (test code = 1538) 109 mg/dL 70-110 : TESTED AT [place] [address]: Heel Seam Rubber/Maintainer Operator ID = [id number] for Hayde Olvera Lab Interpretation (test code = 26091-6) Normal [facility]-Glucose [id number] 12:13:20* Test Item Value Reference Range Interpretation Comme nts POC-Glucose Meter (test code = 1538) 109 mg/dL 70-110 : TESTED AT [place] [address]: Heel Seam Rubber/Maintainer Operator ID = [id number] for Nunu Olveraa Lab Interpretation (test code = 54040-7) [facility] [id number] 12:13:20* Test Item Value Reference Range Interpretation Comme nts POC-Glucose Meter (test code = 1538) 109 mg/dL 70-110 : TESTED AT [place] [address]: Heel Seam Rubber/Maintainer Operator ID = [id number] for Nunu Olveraa Lab Interpretation (test code = 05564-8) Normal [facility]-Glucose [id number] 12:13:20* Test Item Value Reference Range Interpretation Comme nts POC-Glucose Meter (test code = 1538) 109 mg/dL 70-110 : TESTED AT [address] [address]: Heel Seam Rubber/Maintainer Operator ID = [id number] for Nunu Olveraa Lab Interpretation (test code = 10699-9) [facility] [id number] 12:13:20* Test Item Value Reference Range Interpretation Comme nts POC-Glucose Meter (test code = 1538) 109 mg/dL 70-110 : TESTED AT [place] [address]: Heel Seam Rubber/Maintainer Operator ID = [id number] for Nunu Olveraa Lab Interpretation (test code = 04215-7) [facility] [id number] 12:13:20* Test Item Value Reference Range Interpretation Comme nts POC-Glucose Meter (test code = 1538) 109 mg/dL 70-110 : TESTED AT [address] [address]: [employer]ber/Maintainer Operator ID = [id number] for Nunu Olveraa Lab Interpretation (test code = 56122-5) [facility] [id number] 12:13:20* Test Item Value Reference Range Interpretation Comme nts POC-Glucose Meter (test code = 1538) 109 mg/dL 70-110 : TESTED AT [address] [address]: [employer] Rubber/Maintainer Operator ID = [id number] for Nunu Olveraa Lab Interpretation (test code = 47040-9) [facility] [id number] 12:13:20* Test Item Value Reference Range Interpretation Comme nts POC-Glucose Meter (test code = 1538) 109 mg/dL 70-110 : TESTED AT [address] [address]: [employer]ber/Maintainer Operator ID = [id number] for Olvera, Hayde Lab Interpretation (test code = 34271-5) Normal [facility]-Glucose [id number] 12:13:20* Test Item Value Reference Range Interpretation Comme nts POC-Glucose Meter (test code = 1538) 109 mg/dL 70-110 : TESTED AT [address] [address]: [employer]/Maintainer Operator ID = [id number] for Hayde Olvera Lab Interpretation (test code = 61500-6) Normal [facility]-Glucose [id number] 12:13:20* Test Item Value Reference Range Interpretation Comme nts POC-Glucose Meter (test code = 1538) 109 mg/dL 70-110 : TESTED AT [place] [address]: [employer]/Maintainer Operator ID = [id number] for Hayde Olvera Lab Interpretation (test code = 54962-7) Normal [facility]-Glucose [id number] 12:13:20* Test Item Value Reference Range Interpretation Comme nts POC-Glucose Meter (test code = 1538) 109 mg/dL 70-110 : TESTED AT [address] [address]: [employer]ber/Maintainer Operator ID = [id number] for Hayde Olvera Lab Interpretation (test code = 24695-5) Normal [facility]-Glucose [id number] 12:13:20* Test Item Value Reference Range Interpretation Comme nts POC-Glucose Meter (test code = 1538) 109 mg/dL 70-110 : TESTED AT [address] [address]: Heel Seam Rubber/Maintainer Operator ID = [id number] for Hayde Olvera Lab Interpretation (test code = 08308-8) Normal [facility]-Glucose [id number] 12:13:20* Test Item Value Reference Range Interpretation Comme nts POC-Glucose Meter (test code = 1538) 109 mg/dL 70-110 : TESTED AT [address] [address]: Heel Seam Rubber/Maintainer Operator ID = [id number] for Hayde Olvera Lab Interpretation (test code = 84406-5) Normal [facility]-Glucose [id number] 12:13:20* Test Item Value Reference Range Interpretation Comme nts POC-Glucose Meter (test code = 1538) 109 mg/dL 70-110 : TESTED AT [facility] [address] [place] [address]: Heel Seam Rubber/Maintainer Operator ID = [id number] for Hayde Olvera Lab Interpretation (test code = 53377-1) Normal [facility]-Glucose [id number] 12:13:20* Test Item Value Reference Range Interpretation Comme nts POC-Glucose Meter (test code = 1538) 109 mg/dL 70-110 : TESTED AT [place] [address]: Heel Seam Rubber/Maintainer Operator ID = [id number] for Hayde Olvera Lab Interpretation (test code = 48027-3) Normal [facility]-Glucose [id number] 12:13:20* Test Item Value Reference Range Interpretation Comme nts POC-Glucose Meter (test code = 1538) 109 mg/dL 70-110 : TESTED AT [place] [address]: Heel Seam Rubber/Maintainer Operator ID = [id number] for Hayde Olvear Lab Interpretation (test code = 54819-8) Normal [facility]-GLUCOSE [id number] 12:13:20* Test Item Value Reference Range Interpretation Comme nts POC-GLUCOSE METER (BEAKER) (test code = 1538) 109 mg/dL 70-110 : TESTED AT [place] [address]: Heel Seam Rubber/Maintainer Operator ID = [id number] for Hayde Olvera COMPREHENSIVE METABOLIC [id number] 06:45:36* Test Item Value Reference Range Interpretation Comme nts TOTAL PROTEIN (BEAKER) (test code = 770) 7.0 gm/dL 6.0-8.5 ALBUMIN (BEAKER) (test code = 1145) 2.8 g/dL 3.5-5.0 L ALKALINE PHOSPHATASE (BEAKER) (test code = 346) 54 U/L 30-115 BILIRUBIN TOTAL (BEAKER) (test code = 377) 1.9 mg/dL 0.1-1.2 H SODIUM (BEAKER) (test code = 381) 140 meq/L 135-148 POTASSIUM (BEAKER) (test code = 379) 3.3 meq/L 3.6-5.5 L CHLORIDE (BEAKER) (test code = 382) 111 meq/L 98-106 H CO2 (BEAKER) (test code = 355) 17 meq/L 20-29 L BLOOD UREA NITROGEN (BEAKER) (test code = 354) 7 mg/dL 10-26 L CREATININE (BEAKER) (test code = 358) 0.82 mg/dL 0.50-1.20 GLUCOSE RANDOM (BEAKER) (test code = 652) 91 mg/dL 70-110 CALCIUM (BEAKER) (test code = 697) 7.9 mg/dL 8.5-10.5 L AST (SGOT) (BEAKER) (test code = 353) 93 U/L 5-40 H ALT (SGPT) (BEAKER) (test code = 347) 34 U/L 5-50 EGFR (BEAKER) (test code = 1092) 102 mL/min/1.73 sq m Interpretation of eG FR values Stage Description Result G1 Normal or high >=90 G2 Mildly decreased 60-89 G3a Mildly to moderately 45-59 G3b Moderately to severely 30-44 G4 Severly decreased 15-29 G5 Kidney failure <15Reported eGFR is based on the CKD-EPI 202 equation that does not use a race coefficientEstimated GFR is not as accurate as Creatinine Clearance in predicting glomerular filtration rate. Estimated GFR is not applicable for dialysis patients Heel Seam Rubber ID - [id number] ID - [id number] ID - SYWGHOTNX653Lczbqpne ID - SZYGOXFZK709Tesnjlop ID - HWWDXEFGA100Tczhkoke ID - CIHQFYIKL386Gstixlfl ID - HQYJMQIJV646Sqgrkmka ID - ONILQYVBD997Kcfqktxn ID - SGFIGDXEV117Darrfimc ID - SMGDPAVXT472Ykvlxayt ID - GVSIMLTKM832Idvoasor ID - DONKISBVQ618Qxbocsyj ID - DEGNFOSMX642Llegdfvg ID - HFLNPRTJQ065Sxaywzsn ID - JQMNVKHME540Admrmfok ID - RNANSJMIV387Rxtlavyu ID - YDPBHHFOQ792Mjuqberu ID - RYBSIBFAL962Naudlifl ID - [id number]-73 06:07:46* Test Item Value Reference Range Interpretation Comme nts AMMONIA (BEAKER) (test code = 348) 49 mol/L 17-80 Heel Seam Rubber ID - [id number] ID - UIUKMGUPE064Jzfdvqzp ID - PXUCPSUBO246Vzpftsnc ID - [id number] W/PLT COUNT & AUTO DIFFERENTIAL 2022-12-19 05:59:52* Test Item Value Reference Range Interpretation Comme nts WHITE BLOOD CELL COUNT (BEAK ER) (test code = 775) 7.8 K/ L 4.0-10.0 RED BLOOD CELL COUNT (BEAKER ) (test code = 761) 3.10 M/ L 4.20-5.80 L HEMOGLOBIN (BEAKER) (test co de = 410) 9.2 GM/DL 13.0-16.8 L HEMATOCRIT (BEAKER) (test co de = 411) 29.2 % 36.0-50.0 L MEAN CORPUSCULAR VOLUME (CHERELLE KER) (test code = 753) 94 fL 82-99 MEAN CORPUSCULAR HEMOGLOBIN (BEAKER) (test code = 751) 29.7 pg 27.0-33.0 MEAN CORPUSCULAR HEMOGLOBIN CONC (BEAKER) (test code = 752) 31.5 GM/DL 32.0-36.0 L RED CELL DISTRIBUTION WIDTH (BEAKER) (test code = 412) 16.3 % 12.0-15.0 H PLATELET COUNT (BEAKER) (rudy t code = 756) 100 K/CU MM 150-430 L MEAN PLATELET VOLUME (BEAKER ) (test code = 754) 11.5 fL 6.0-11.5 NUCLEATED RED BLOOD CELLS (BEAKER) (test code = 413) 0 /100 WBC 0-0 NEUTROPHILS RELATIVE PERCENT (BEAKER) (test code = 429) 64 % LYMPHOCYTES RELATIVE PERCENT (BEAKER) (test code = 430) 15 % MONOCYTES RELATIVE PERCENT (BEAKER) (test code = 431) 18 % EOSINOPHILS RELATIVE PERCENT (BEAKER) (test code = 432) 2 % BASOPHILS RELATIVE PERCENT (BEAKER) (test code = 437) 1 % NEUTROPHILS ABSOLUTE COUNT (BEAKER) (test code = 670) 4.98 K/ L 1.80-8.00 LYMPHOCYTES ABSOLUTE COUNT (BEAKER) (test code = 414) 1.13 K/ L 1.48-4.50 L MONOCYTES ABSOLUTE COUNT (BE GUZMAN) (test code = 415) 1.36 K/ L 0.00-1.30 H EOSINOPHILS ABSOLUTE COUNT (BEAKER) (test code = 416) 0.16 K/ L 0.00-0.50 BASOPHILS ABSOLUTE COUNT (BE GUZMAN) (test code = 417) 0.10 K/ L 0.00-0.20 IMMATURE GRANULOCYTES-RELATI VE PERCENT (BEAKER) (test code = 2801) 0.40 % 0.00-0.00 H POCT-GLUCOSE [id number] 05:25:15* Test Item Value Reference Range Interpretation Comme nts POC-GLUCOSE METER (BEAKER) (test code = 1538) 83 mg/dL 70-110 : TESTED AT [place] [address]: Heel Seam Rubber/Maintainer Operator ID = [id number] for Franci Nance POCT-GLUCOSE [id number] 18:04:57* Test Item Value Reference Range Interpretation Comme nts POC-GLUCOSE METER (BEAKER) (test code = 1538) 106 mg/dL 70-110 : Notified RN/MD : TESTED AT [place] [address]: Heel Seam Rubber/Maintainer Operator ID = [id number] for Bjorn Olvera [id number] 17:10:56* Test Item Value Reference Range Interpretation Comme nts AMMONIA (BEAKER) (test code = 348) 53 mol/L 17-80 Specimen slightl y hemolyzed Heel Seam Rubber ID - DSENSONOperator ID - DSENSONOperator ID - DSENSONOperator ID - DSENSONPOCT-GLUCOSE [id number] 12:02:27* Test Item Value Reference Range Interpretation Comme nts POC-GLUCOSE METER (BEAKER) (test code = 1538) 125 mg/dL 70-110 H : Notified RN/MD : TESTED AT [place] [address]: Heel Seam Rubber/Maintainer Operator ID = [id number] for Bjorn Olvera BASIC METABOLIC [id number] 05:31:47* Test Item Value Reference Range Interpretation Comme nts SODIUM (BEAKER) (test code = 381) 141 meq/L 135-148 POTASSIUM (BEAKER) (test code = 379) 3.3 meq/L 3.6-5.5 L CHLORIDE (BEAKER) (test code = 382) 111 meq/L 98-106 H CO2 (BEAKER) (test code = 355) 20 meq/L 20-29 BLOOD UREA NITROGEN (BEAKER) (test code = 354) 8 mg/dL 10-26 L CREATININE (BEAKER) (test code = 358) 0.87 mg/dL 0.50-1.20 GLUCOSE RANDOM (BEAKER) (test code = 652) 102 mg/dL 70-110 CALCIUM (BEAKER) (test code = 697) 8.0 mg/dL 8.5-10.5 L EGFR (BEAKER) (test code = 1092) 101 mL/min/1.73 sq m Interpretation of eG FR values Stage Description Result G1 Normal or high >=90 G2 Mildly decreased 60-89 G3a Mildly to moderately 45-59 G3b Moderately to severely 30-44 G4 Severly decreased 15-29 G5 Kidney failure <15Reported eGFR is based on the CKD-EPI 2020 equation that does not use a race coefficientEstimated GFR is not as accurate as Creatinine Clearance in predicting glomerular filtration rate. Estimated GFR is not applicable for dialysis patients Heel Seam Rubber ID - LITOOperator ID - LITOOperator ID - LITOOperator ID - LITOOperator ID - LITOOperator ID - LITOOperator ID - LITOOperator ID - LITOOperator ID - LITOOperator ID - LITOOperator ID - LITOOperator ID - LITOOperator ID - LITOCBC W/PLT COUNT & AUTO [id number] 05:07:42* Test Item Value Reference Range Interpretation Comme nts WHITE BLOOD CELL COUNT (BEAK ER) (test code = 775) 8.1 K/ L 4.0-10.0 RED BLOOD CELL COUNT (BEAKER ) (test code = 761) 3.08 M/ L 4.20-5.80 L HEMOGLOBIN (BEAKER) (test co de = 410) 9.1 GM/DL 13.0-16.8 L HEMATOCRIT (BEAKER) (test co de = 411) 29.0 % 36.0-50.0 L MEAN CORPUSCULAR VOLUME (CHERELLE KER) (test code = 753) 94 fL 82-99 MEAN CORPUSCULAR HEMOGLOBIN (BEAKER) (test code = 751) 29.5 pg 27.0-33.0 MEAN CORPUSCULAR HEMOGLOBIN CONC (BEAKER) (test code = 752) 31.4 GM/DL 32.0-36.0 L RED CELL DISTRIBUTION WIDTH (BEAKER) (test code = 412) 15.9 % 12.0-15.0 H PLATELET COUNT (BEAKER) (rudy t code = 756) 98 K/CU MM 150-430 L MEAN PLATELET VOLUME (BEAKER ) (test code = 754) 10.8 fL 6.0-11.5 NUCLEATED RED BLOOD CELLS (B EAKER) (test code = 413) 0 /100 WBC 0-0 NEUTROPHILS RELATIVE PERCENT (BEAKER) (test code = 429) 64 % LYMPHOCYTES RELATIVE PERCENT (BEAKER) (test code = 430) 16 % MONOCYTES RELATIVE PERCENT (BEAKER) (test code = 431) 17 % EOSINOPHILS RELATIVE PERCENT (BEAKER) (test code = 432) 2 % BASOPHILS RELATIVE PERCENT (BEAKER) (test code = 437) 1 % NEUTROPHILS ABSOLUTE COUNT (BEAKER) (test code = 670) 5.15 K/ L 1.80-8.00 LYMPHOCYTES ABSOLUTE COUNT (BEAKER) (test code = 414) 1.25 K/ L 1.48-4.50 L MONOCYTES ABSOLUTE COUNT (BE GUZMAN) (test code = 415) 1.34 K/ L 0.00-1.30 H EOSINOPHILS ABSOLUTE COUNT (BEAKER) (test code = 416) 0.19 K/ L 0.00-0.50 BASOPHILS ABSOLUTE COUNT (BE GUZMAN) (test code = 417) 0.10 K/ L 0.00-0.20 IMMATURE GRANULOCYTES-RELATI VE PERCENT (BEAKER) (test code = 2801) 0.40 % 0.00-0.00 H COMPREHENSIVE METABOLIC [id number] 07:47:57* Test Item Value Reference Range Interpretation Comme nts TOTAL PROTEIN (BEAKER) (test code = 770) 7.3 gm/dL 6.0-8.5 ALBUMIN (BEAKER) (test code = 1145) 3.0 g/dL 3.5-5.0 L ALKALINE PHOSPHATASE (BEAKER) (test code = 346) 57 U/L 30-115 BILIRUBIN TOTAL (BEAKER) (test code = 377) 2.1 mg/dL 0.1-1.2 H SODIUM (BEAKER) (test code = 381) 139 meq/L 135-148 POTASSIUM (BEAKER) (test code = 379) 3.4 meq/L 3.6-5.5 L CHLORIDE (BEAKER) (test code = 382) 107 meq/L 98-106 H CO2 (BEAKER) (test code = 355) 19 meq/L 20-29 L BLOOD UREA NITROGEN (BEAKER) (test code = 354) 11 mg/dL 10-26 CREATININE (BEAKER) (test code = 358) 0.94 mg/dL 0.50-1.20 GLUCOSE RANDOM (BEAKER) (test code = 652) 110 mg/dL 70-110 CALCIUM (BEAKER) (test code = 697) 7.8 mg/dL 8.5-10.5 L AST (SGOT) (BEAKER) (test code = 353) 114 U/L 5-40 H ALT (SGPT) (BEAKER) (test code = 347) 33 U/L 5-50 EGFR (BEAKER) (test code = 1092) 95 mL/min/1.73 sq m Interpretation of eG FR values Stage Description Result G1 Normal or high >=90 G2 Mildly decreased 60-89 G3a Mildly to moderately 45-59 G3b Moderately to severely 30-44 G4 Severly decreased 15-29 G5 Kidney failure <15Reported eGFR is based on the CKD-EPI 2021 equation that does not use a race coefficientEstimated GFR is not as accurate as Creatinine Clearance in predicting glomerular filtration rate. Estimated GFR is not applicable for dialysis patients Heel Seam Rubber ID - [id number] ID - UEDF43Uuquzpcz ID - YSRL84Segvttwv ID - ZSTT18Milcvoux ID - RSQK14Ukcqskaj ID - VPKD86Ovmjblpt ID - LQOZ13Yywujbcb ID - PJIH54Axhtokor ID - XOBP63Paypiedb ID - QMCR47Umonpxcn ID - TWET02Mtyyrsps ID - UOXU11Ujfumxnz ID - EOYI42Bxauhdbk ID - RJMX77Dckvvddj ID - JDMK94Ausmipfo ID - [id number] 07:43:08* Test Item Value Reference Range Interpretation Comme nts MAGNESIUM (BEAKER) (test cod e = 627) 1.4 mg/dL 1.5-3.0 L Heel Seam Rubber ID - VOJI52Txdzecko ID - WOOE19Gplboqkd ID - DUTW39Mgjodtbp ID - [id number] CBC W/PLT COUNT & AUTO [id number] 07:29:00* Test Item Value Reference Range Interpretation Comme nts WHITE BLOOD CELL COUNT (BEAKER) (test code = 775) 8.7 K/ L 4.0-10.0 RED BLOOD CELL COUNT (BEAKER ) (test code = 761) 3.12 M/ L 4.20-5.80 L HEMOGLOBIN (BEAKER) (test co de = 410) 9.2 GM/DL 13.0-16.8 L HEMATOCRIT (BEAKER) (test co de = 411) 29.0 % 36.0-50.0 L MEAN CORPUSCULAR VOLUME (BEAKER) (test code = 753) 93 fL 82-99 MEAN CORPUSCULAR HEMOGLOBIN (BEAKER) (test code = 751) 29.5 pg 27.0-33.0 MEAN CORPUSCULAR HEMOGLOBIN CONC (BEAKER) (test code = 752) 31.7 GM/DL 32.0-36.0 L RED CELL DISTRIBUTION WIDTH (BEAKER) (test code = 412) 16.1 % 12.0-15.0 H PLATELET COUNT (BEAKER) (rudy t code = 756) 93 K/CU MM 150-430 L NO CLOT SEEN MEAN PLATELET VOLUME (BEAKER ) (test code = 754) 11.9 fL 6.0-11.5 H NUCLEATED RED BLOOD CELLS (BEAKER) (test code = 413) 0 /100 WBC 0-0 NEUTROPHILS RELATIVE PERCENT (BEAKER) (test code = 429) 68 % LYMPHOCYTES RELATIVE PERCENT (BEAKER) (test code = 430) 15 % MONOCYTES RELATIVE PERCENT (BEAKER) (test code = 431) 14 % EOSINOPHILS RELATIVE PERCENT (BEAKER) (test code = 432) 2 % BASOPHILS RELATIVE PERCENT (BEAKER) (test code = 437) 1 % NEUTROPHILS ABSOLUTE COUNT (BEAKER) (test code = 670) 5.87 K/ L 1.80-8.00 LYMPHOCYTES ABSOLUTE COUNT (BEAKER) (test code = 414) 1.29 K/ L 1.48-4.50 L MONOCYTES ABSOLUTE COUNT (BEAKER) (test code = 415) 1.26 K/ L 0.00-1.30 EOSINOPHILS ABSOLUTE COUNT (BEAKER) (test code = 416) 0.17 K/ L 0.00-0.50 BASOPHILS ABSOLUTE COUNT (BEAKER) (test code = 417) 0.10 K/ L 0.00-0.20 IMMATURE GRANULOCYTES-RELATI VE PERCENT (BEAKER) (test code = 2801) 0.30 % 0.00-0.00 H POCT-GLUCOSE [id number] 06:48:36* Test Item Value Reference Range Interpretation Comme nts POC-GLUCOSE METER (BEAKER) (test code = 1538) 110 mg/dL 70-110 : TESTED AT [place] [address]: Heel Seam Rubber/Maintainer Operator ID = [id number] for phoenix Aldrich POCT-GLUCOSE [id number] 23:57:43* Test Item Value Reference Range Interpretation Comme nts POC-GLUCOSE METER (BEAKER) (test code = 1538) 96 mg/dL 70-110 : TESTED AT [place] [address]: Heel Seam Rubber/Maintainer Operator ID = [id number] for Yayo Lazar [facility] [id number] 23:54:00* Test Item Value Reference Range Interpretation Comme nts Unit ABO (test code = 2850703) O Pos UNIT NUMBER (test code = 934-0) [id number] Status (test code = 1701071) [facility] Product (test cod e = 2263) RED BLOOD CELLS PRODUCT CODE (test code = 933-2) [id number] CROSSMATCH (test code = 2264) [facility] [id number] 23:54:00* Test Item Value Reference Range Interpretation Comme nts Unit ABO (test code = 7928753) O Pos UNIT NUMBER (test code = 934-0) [id number] Status (test code = 9740700) TX_TIMEINCHART Blood Bank Product (test cod e = 2263) RED BLOOD CELLS PRODUCT CODE (test code = 933-2) [id number] CROSSMATCH (test code = 2264) [facility]ATIBLE [facility] [id number] 23:54:00* Test Item Value Reference Range Interpretation Comme nts Unit ABO (test code = 0545937) O Pos UNIT NUMBER (test code = 934-0) [id number] Status (test code = 8112284) TX_TIMEINCHART Blood Bank Product (test cod e = 2263) RED BLOOD CELLS PRODUCT CODE (test code = 933-2) [id number] CROSSMATCH (test code = 2264) COMPATIBLE [facility] [id number] 23:54:00* Test Item Value Reference Range Interpretation Comme nts Unit ABO (test code = 3782553) O Pos UNIT NUMBER (test code = 934-0) [id number] Status (test code = 4767610) TX_TIMEINCHART Blood Bank Product (test cod e = 2263) RED BLOOD CELLS PRODUCT CODE (test code = 933-2) [id number] CROSSMATCH (test code = 2264) COMPATIBLE [facility] [id number] 23:54:00* Test Item Value Reference Range Interpretation Comme nts Unit ABO (test code = 7283267) O Pos UNIT NUMBER (test code = 934-0) [id number] Status (test code = 0279624) TX_TIMEINCHART Blood Bank Product (test cod e = 2263) RED BLOOD CELLS PRODUCT CODE (test code = 933-2) [id number] CROSSMATCH (test code = 2264) COMPATIBLE [facility] [id number] 23:54:00* Test Item Value Reference Range Interpretation Comme nts Unit ABO (test code = 0383371) O Pos UNIT NUMBER (test code = 934-0) [id number] Status (test code = 5681968) TX_TIMEINCHART Blood Bank Product (test cod e = 2263) RED BLOOD CELLS PRODUCT CODE (test code = 933-2) [id number] CROSSMATCH (test code = 2264) COMPATIBLE [facility] [id number] 23:54:00* Test Item Value Reference Range Interpretation Comme nts Unit ABO (test code = 8435145) O Pos UNIT NUMBER (test code = 934-0) [id number] Status (test code = 0670782) TX_TIMEINCHART Blood Bank Product (test cod e = 2263) RED BLOOD CELLS PRODUCT CODE (test code = 933-2) [id number] CROSSMATCH (test code = 2264) COMPATIBLE [facility] [id number] 23:54:00* Test Item Value Reference Range Interpretation Comme nts Unit ABO (test code = 6014500) O Pos UNIT NUMBER (test code = 934-0) [id number] Status (test code = 0175463) TX_TIMEINCHART Blood Bank Product (test cod e = 2263) RED BLOOD CELLS PRODUCT CODE (test code = 933-2) [id number] CROSSMATCH (test code = 2264) COMPATIBLE [facility] [id number] 23:54:00* Test Item Value Reference Range Interpretation Comme nts Unit ABO (test code = 9975724) O Pos UNIT NUMBER (test code = 934-0) [id number] Status (test code = 5829856) TX_TIMEINCHART Blood Bank Product (test cod e = 2263) RED BLOOD CELLS PRODUCT CODE (test code = 933-2) [id number] CROSSMATCH (test code = 2264) COMPATIBLE [facility] [id number] 23:54:00* Test Item Value Reference Range Interpretation Comme nts Unit ABO (test code = 6466339) O Pos UNIT NUMBER (test code = 934-0) [id number] Status (test code = 4899857) TX_TIMEINCHART Blood Bank Product (test cod e = 2263) RED BLOOD CELLS PRODUCT CODE (test code = 933-2) [id number] CROSSMATCH (test code = 2264) COMPATIBLE [facility] [id number] 23:54:00* Test Item Value Reference Range Interpretation Comme nts Unit ABO (test code = 3678515) O Pos UNIT NUMBER (test code = 934-0) [id number] Status (test code = 3674904) TX_TIMEINCHART Blood Bank Product (test cod e = 2263) RED BLOOD CELLS PRODUCT CODE (test code = 933-2) [id number] CROSSMATCH (test code = 2264) COMPATIBLE [facility] [id number] 23:54:00* Test Item Value Reference Range Interpretation Comme nts Unit ABO (test code = 8553204) O Pos UNIT NUMBER (test code = 934-0) [id number] Status (test code = 8432297) TX_TIMEINCHART Blood Bank Product (test cod e = 2263) RED BLOOD CELLS PRODUCT CODE (test code = 933-2) [id number] CROSSMATCH (test code = 2264) COMPATIBLE [facility] [id number] 23:54:00* Test Item Value Reference Range Interpretation Comme nts Unit ABO (test code = 5444827) O Pos UNIT NUMBER (test code = 934-0) [id number] Status (test code = 8651536) TX_TIMEINCHART Blood Bank Product (test cod e = 2263) RED BLOOD CELLS PRODUCT CODE (test code = 933-2) [id number] CROSSMATCH (test code = 2264) COMPATIBLE [facility] [id number] 23:54:00* Test Item Value Reference Range Interpretation Comme nts Unit ABO (test code = 8280003) O Pos UNIT NUMBER (test code = 934-0) [id number] Status (test code = 7831552) TX_TIMEINCHART Blood Bank Product (test cod e = 2263) RED BLOOD CELLS PRODUCT CODE (test code = 933-2) [id number] CROSSMATCH (test code = 2264) COMPATIBLE [facility] [id number] 23:54:00* Test Item Value Reference Range Interpretation Comme nts Unit ABO (test code = 2159748) O Pos UNIT NUMBER (test code = 934-0) [id number] Status (test code = 2029049) TX_TIMEINCHART Blood Bank Product (test cod e = 2263) RED BLOOD CELLS PRODUCT CODE (test code = 933-2) [id number] CROSSMATCH (test code = 2264) COMPATIBLE [facility] [id number] 23:54:00* Test Item Value Reference Range Interpretation Comme nts Unit ABO (test code = 0314155) O Pos UNIT NUMBER (test code = 934-0) [id number] Status (test code = 5933939) TX_TIMEINCHART Blood Bank Product (test cod e = 2263) RED BLOOD CELLS PRODUCT CODE (test code = 933-2) [id number] CROSSMATCH (test code = 2264) COMPATIBLE [facility] [id number] 23:54:00* Test Item Value Reference Range Interpretation Comme nts Unit ABO (test code = 0682627) O Pos UNIT NUMBER (test code = 934-0) [id number] Status (test code = 1841168) TX_TIMEINCHART Blood Bank Product (test cod e = 2263) RED BLOOD CELLS PRODUCT CODE (test code = 933-2) [id number] CROSSMATCH (test code = 2264) COMPATIBLE [facility] [id number] 23:54:00* Test Item Value Reference Range Interpretation Comme nts Unit ABO (test code = 2645103) O Pos UNIT NUMBER (test code = 934-0) [id number] Status (test code = 3525573) TX_TIMEINCHART Blood Bank Product (test cod e = 2263) RED BLOOD CELLS PRODUCT CODE (test code = 933-2) [id number] CROSSMATCH (test code = 2264) COMP[facility]IBLE [facility] [id number] 23:54:00* Test Item Value Reference Range Interpretation Comme nts Unit ABO (test code = 1720348) O Pos UNIT NUMBER (test code = 934-0) [id number] Status (test code = 2951492) TX_TIMEINCHART Blood Bank Product (test cod e = 2263) RED BLOOD CELLS PRODUCT CODE (test code = 933-2) [id number] CROSSMATCH (test code = 2264) COMPATIBLE [facility] [id number] 23:54:00* Test Item Value Reference Range Interpretation Comme nts Unit ABO (test code = 1171350) O Pos UNIT NUMBER (test code = 934-0) [id number] Status (test code = 3708498) TX_TIMEINCHART Blood Bank Product (test cod e = 2263) RED BLOOD CELLS PRODUCT CODE (test code = 933-2) [id number] CROSSMATCH (test code = 2264) COMPATIBLE [facility] [id number] 23:54:00* Test Item Value Reference Range Interpretation Comme nts Unit ABO (test code = 6864669) O Pos UNIT NUMBER (test code = 934-0) [id number] Status (test code = 3189658) TX_TIMEINCHART Blood Bank Product (test cod e = 2263) RED BLOOD CELLS PRODUCT CODE (test code = 933-2) [id number] CROSSMATCH (test code = 2264) COMPATIBLE [facility] [id number] 23:54:00* Test Item Value Reference Range Interpretation Comme nts Unit ABO (test code = 8702926) O Pos UNIT NUMBER (test code = 934-0) [id number] Status (test code = 6564709) TX_TIMEINCHART Blood Bank Product (test cod e = 2263) RED BLOOD CELLS PRODUCT CODE (test code = 933-2) [id number] CROSSMATCH (test code = 2264) COMPATIBLE [facility] [id number] 23:54:00* Test Item Value Reference Range Interpretation Comme nts Unit ABO (test code = 6938520) O Pos UNIT NUMBER (test code = 934-0) [id number] Status (test code = 2537473) TX_TIMEINCHART Blood Bank Product (test cod e = 2263) RED BLOOD CELLS PRODUCT CODE (test code = 933-2) [id number] CROSSMATCH (test code = 2264) [facility] [id number] 17:04:49* Test Item Value Reference Range Interpretation Comme nts POC-GLUCOSE METER (BEAKER) (test code = 1538) 111 mg/dL 70-110 H : TESTED AT [place] [address]: [employer]/Maintainer Operator ID = [id number] for Kristie Hanson POCT-GLUCOSE [id number] 12:21:48* Test Item Value Reference Range Interpretation Comme nts POC-GLUCOSE METER (BEAKER) (test code = 1538) 119 mg/dL 70-110 H : TESTED AT [place] [address]: [employer]/Maintainer Operator ID = [id number] for Margie Kristie POCT-GLUCOSE [id number] 08:39:03* Test Item Value Reference Range Interpretation Comme nts POC-GLUCOSE METER (BEAKER) (test code = 1538) 117 mg/dL 70-110 H : TESTED AT [place] [address]: [employer]/Maintainer Operator ID = [id number] for Kristie Hanson COMPREHENSIVE METABOLIC [id number] 05:36:17* Test Item Value Reference Range Interpretation Comme nts TOTAL PROTEIN (BEAKER) (test code = 770) 7.2 gm/dL 6.0-8.5 ALBUMIN (BEAKER) (test code = 1145) 2.9 g/dL 3.5-5.0 L ALKALINE PHOSPHATASE (BEAKER) (test code = 346) 59 U/L 30-115 BILIRUBIN TOTAL (BEAKER) (test code = 377) 2.2 mg/dL 0.1-1.2 H SODIUM (BEAKER) (test code = 381) 136 meq/L 135-148 POTASSIUM (BEAKER) (test code = 379) 3.4 meq/L 3.6-5.5 L CHLORIDE (BEAKER) (test code = 382) 105 meq/L 98-106 CO2 (BEAKER) (test code = 355) 21 meq/L 20-29 BLOOD UREA NITROGEN (BEAKER) (test code = 354) 9 mg/dL 10-26 L CREATININE (BEAKER) (test code = 358) 0.88 mg/dL 0.50-1.20 GLUCOSE RANDOM (BEAKER) (test code = 652) 115 mg/dL 70-110 H CALCIUM (BEAKER) (test code = 697) 7.5 mg/dL 8.5-10.5 L AST (SGOT) (BEAKER) (test code = 353) 87 U/L 5-40 H ALT (SGPT) (BEAKER) (test code = 347) 28 U/L 5-50 EGFR (BEAKER) (test code = 1092) 101 mL/min/1.73 sq m Interpretation of eG FR values Stage Description Result G1 Normal or high >=90 G2 Mildly decreased 60-89 G3a Mildly to moderately 45-59 G3b Moderately to severely 30-44 G4 Severly decreased 15-29 G5 Kidney failure <15Reported eGFR is based on the CKD-EPI 2020 equation that does not use a race coefficientEstimated GFR is not as accurate as Creatinine Clearance in predicting glomerular filtration rate. Estimated GFR is not applicable for dialysis patients [employer] ID - [id number] ID - [id number] ID - WPCV54Mkqutdci ID - YZUV21Cmiaplxo ID - FPFR19Ecxibllb ID - IQTR39Xlldvdxn ID - YQKJ41Rhnzwsvu ID - OSKS47Nbqivadg ID - UYON06Ftyyfdqd ID - OGWV08Memfhrka ID - LULM31Argjuurl ID - CHFR11Sykonxmx ID - YSJV22Gogpuetx ID - AHPE02Dqdewjhf ID - JSXM69Qkjwnvww ID - [id number] 05:35:46* Test Item Value Reference Range Interpretation Comme nts MAGNESIUM (BEAKER) (test cod e = 627) 1.5 mg/dL 1.5-3.0 [employer] ID - [id number] ID - DIFV97Vrmzarbl ID - YPPY95Tieggtqu ID - [id number] CBC W/PLT COUNT & AUTO [id number] 05:32:21* Test Item Value Reference Range Interpretation Comme nts WHITE BLOOD CELL COUNT (BEAK ER) (test code = 775) 7.8 K/ L 4.0-10.0 RED BLOOD CELL COUNT (BEAKER ) (test code = 761) 3.11 M/ L 4.20-5.80 L HEMOGLOBIN (BEAKER) (test co de = 410) 9.0 GM/DL 13.0-16.8 L HEMATOCRIT (BEAKER) (test co de = 411) 27.8 % 36.0-50.0 L MEAN CORPUSCULAR VOLUME (CHERELLE KER) (test code = 753) 89 fL 82-99 MEAN CORPUSCULAR HEMOGLOBIN (BEAKER) (test code = 751) 28.9 pg 27.0-33.0 MEAN CORPUSCULAR HEMOGLOBIN CONC (BEAKER) (test code = 752) 32.4 GM/DL 32.0-36.0 RED CELL DISTRIBUTION WIDTH (BEAKER) (test code = 412) 15.6 % 12.0-15.0 H PLATELET COUNT (BEAKER) (rudy t code = 756) 72 K/CU MM 150-430 L MEAN PLATELET VOLUME (BEAKER ) (test code = 754) 12.7 fL 6.0-11.5 H NUCLEATED RED BLOOD CELLS (B EAKER) (test code = 413) 0 /100 WBC 0-0 NEUTROPHILS RELATIVE PERCENT (BEAKER) (test code = 429) 66 % LYMPHOCYTES RELATIVE PERCENT (BEAKER) (test code = 430) 17 % MONOCYTES RELATIVE PERCENT (BEAKER) (test code = 431) 13 % EOSINOPHILS RELATIVE PERCENT (BEAKER) (test code = 432) 2 % BASOPHILS RELATIVE PERCENT (BEAKER) (test code = 437) 2 % NEUTROPHILS ABSOLUTE COUNT (BEAKER) (test code = 670) 5.20 K/ L 1.80-8.00 LYMPHOCYTES ABSOLUTE COUNT (BEAKER) (test code = 414) 1.32 K/ L 1.48-4.50 L MONOCYTES ABSOLUTE COUNT (BE GUZMAN) (test code = 415) 1.04 K/ L 0.00-1.30 EOSINOPHILS ABSOLUTE COUNT (BEAKER) (test code = 416) 0.12 K/ L 0.00-0.50 BASOPHILS ABSOLUTE COUNT (BE GUZMAN) (test code = 417) 0.13 K/ L 0.00-0.20 IMMATURE GRANULOCYTES-RELATI VE PERCENT (BEAKER) (test code = 2801) 0.40 % 0.00-0.00 H COMPREHENSIVE METABOLIC [id number] 05:19:06* Test Item Value Reference Range Interpretation Comme nts TOTAL PROTEIN (BEAKER) (test code = 770) 6.2 gm/dL 6.0-8.5 ALBUMIN (BEAKER) (test code = 1145) 2.6 g/dL 3.5-5.0 L ALKALINE PHOSPHATASE (BEAKER) (test code = 346) 60 U/L 30-115 BILIRUBIN TOTAL (BEAKER) (test code = 377) 1.3 mg/dL 0.1-1.2 H SODIUM (BEAKER) (test code = 381) 142 meq/L 135-148 POTASSIUM (BEAKER) (test code = 379) 3.5 meq/L 3.6-5.5 L CHLORIDE (BEAKER) (test code = 382) 106 meq/L 98-106 CO2 (BEAKER) (test code = 355) 25 meq/L 20-29 BLOOD UREA NITROGEN (BEAKER) (test code = 354) 14 mg/dL 10-26 CREATININE (BEAKER) (test code = 358) 0.81 mg/dL 0.50-1.20 GLUCOSE RANDOM (BEAKER) (test code = 652) 81 mg/dL 70-110 CALCIUM (BEAKER) (test code = 697) 7.2 mg/dL 8.5-10.5 L AST (SGOT) (BEAKER) (test code = 353) 86 U/L 5-40 H ALT (SGPT) (BEAKER) (test code = 347) 27 U/L 5-50 EGFR (BEAKER) (test code = 1092) 103 mL/min/1.73 sq m Interpretation of eG FR values Stage Description Result G1 Normal or high >=90 G2 Mildly decreased 60-89 G3a Mildly to moderately 45-59 G3b Moderately to severely 30-44 G4 Severly decreased 15-29 G5 Kidney failure <15Reported eGFR is based on the CKD-EPI 2020 equation that does not use a race coefficientEstimated GFR is not as accurate as Creatinine Clearance in predicting glomerular filtration rate. Estimated GFR is not applicable for dialysis patients [employer] ID - LITOOperator ID - LITOOperator ID - LITOOperator ID - LITOOperator ID - LITOOperator ID - LITOOperator ID - LITOOperator ID - LITOOperator ID - LITOOperator ID - LITOOperator ID - LITOOperator ID - LITOOperator ID - LITOOperator ID - LITOOperator ID - LITOOperator ID - [id number] 05:17:37* Test Item Value Reference Range Interpretation Comme nts MAGNESIUM (BEAKER) (test cod e = 627) 1.0 mg/dL 1.5-3.0 LL [employer] ID - LITOOperator ID - LITOOperator ID - LITOOperator ID - LITOCBC W/PLT COUNT & AUTO [id number] 04:44:06* Test Item Value Reference Range Interpretation Comme nts WHITE BLOOD CELL COUNT (BEAK ER) (test code = 775) 6.7 K/ L 4.0-10.0 RED BLOOD CELL COUNT (BEAKER ) (test code = 761) 2.40 M/ L 4.20-5.80 L HEMOGLOBIN (BEAKER) (test co de = 410) 6.9 GM/DL 13.0-16.8 L HEMATOCRIT (BEAKER) (test co de = 411) 22.0 % 36.0-50.0 L MEAN CORPUSCULAR VOLUME (CHERELLE KER) (test code = 753) 92 fL 82-99 MEAN CORPUSCULAR HEMOGLOBIN (BEAKER) (test code = 751) 28.8 pg 27.0-33.0 MEAN CORPUSCULAR HEMOGLOBIN CONC (BEAKER) (test code = 752) 31.4 GM/DL 32.0-36.0 L RED CELL DISTRIBUTION WIDTH (BEAKER) (test code = 412) 15.9 % 12.0-15.0 H PLATELET COUNT (BEAKER) (rudy t code = 756) 56 K/CU MM 150-430 L MEAN PLATELET VOLUME (BEAKER ) (test code = 754) 10.8 fL 6.0-11.5 NUCLEATED RED BLOOD CELLS (B EAKER) (test code = 413) 0 /100 WBC 0-0 NEUTROPHILS RELATIVE PERCENT (BEAKER) (test code = 429) 57 % LYMPHOCYTES RELATIVE PERCENT (BEAKER) (test code = 430) 25 % MONOCYTES RELATIVE PERCENT (BEAKER) (test code = 431) 15 % EOSINOPHILS RELATIVE PERCENT (BEAKER) (test code = 432) 1 % BASOPHILS RELATIVE PERCENT (BEAKER) (test code = 437) 1 % NEUTROPHILS ABSOLUTE COUNT (BEAKER) (test code = 670) 3.79 K/ L 1.80-8.00 LYMPHOCYTES ABSOLUTE COUNT (BEAKER) (test code = 414) 1.67 K/ L 1.48-4.50 MONOCYTES ABSOLUTE COUNT (BE GUZMAN) (test code = 415) 1.03 K/ L 0.00-1.30 EOSINOPHILS ABSOLUTE COUNT (BEAKER) (test code = 416) 0.08 K/ L 0.00-0.50 BASOPHILS ABSOLUTE COUNT (BE GUZMAN) (test code = 417) 0.09 K/ L 0.00-0.20 IMMATURE GRANULOCYTES-RELATI VE PERCENT (BEAKER) (test code = 2801) 0.30 % 0.00-0.00 H TROPONIN [id number] 00:14:07* Test Item Value Reference Range Interpretation Comme nts TROPONIN I (BEAKER) (test code = 397) [...] failure, acidosis, acute neurological disease, and persistent tachyarrhythmia.[employer] ID - LITOUrinalysis w/ [id number] 00:03:35* Test Item Value Reference Range Interpretation Comme nts Color, UA (test code = 5778-6) Reanna Clarity, UA (test code = 5767-9) Clear Specific Sallis, UA (test code = 5811-5) 1.010 1.001-1.035 pH, UA (test code = 5803-2) 7.0 5.0-8.0 Protein, UA (test code = 21087-0) Trace Negative A Glucose, UA (test code = 365) Negative Negative Ketones, UA (test code = 2514-8) Trace Negative A Bilirubin, UA (test code = 84656-5) Positive Negative A Blood, UA (test code = 73267-7) Negative Negative Nitrite, UA (test code = 5802-4) Negative Negative Leukocytes, UA (test code = 5799-2) Negative Negative Urobilinogen, UA (test code = 22061-4) 4.0 Bacteria, UA (test code = 81645-2) None Seen RBC, UA (test code = 799-7) <5 See_Comment [Automated messa ge] The system which generated this result transmitted reference range: /HPF. The reference range was not used to interpret this result as normal/abnormal. WBC, UA (test code = 20143-9) <5 See_Comment [Automated messa ge] The system which generated this result transmitted reference range: /HPF. The reference range was not used to interpret this result as normal/abnormal. SQUAMOUS EPITHELIAL (test code = 91289-1) None Seen See_Comment [Automated message] The system which generated this result transmitted reference range: /HPF. The reference range was not used to interpret this result as normal/abnormal. Specimen Source (test code = 2795) Lab Interpretation (test code = 65620-5) [facility] Nrfmdttfpuk1084-69-14 00:03:35* Test Item Value Reference Range Interpretation Comme nts Color, UA (test code = 5778-6) Reanna Clarity, UA (test code = 5767-9) Clear Specific Sallis, UA (test code = 5811-5) 1.010 1.001-1.035 pH, UA (test code = 5803-2) 7.0 5.0-8.0 Protein, UA (test code = 12404-3) Trace Negative A Glucose, UA (test code = 365) Negative Negative Ketones, UA (test code = 2514-8) Trace Negative A Bilirubin, UA (test code = 78739-2) Positive Negative A Blood, UA (test code = 93388-1) Negative Negative Nitrite, UA (test code = 5802-4) Negative Negative Leukocytes, UA (test code = 5799-2) Negative Negative Urobilinogen, UA (test code = 98651-5) 4.0 Bacteria, UA (test code = 58239-9) None Seen RBC, UA (test code = 799-7) <5 See_Comment [Automated messa ge] The system which generated this result transmitted reference range: /HPF. The reference range was not used to interpret this result as normal/abnormal. WBC, UA (test code = 78150-0) <5 See_Comment [Automated messa ge] The system which generated this result transmitted reference range: /HPF. The reference range was not used to interpret this result as normal/abnormal. SQUAMOUS EPITHELIAL (test code = 62058-2) None Seen See_Comment [Automated message] The system which generated this result transmitted reference range: /HPF. The reference range was not used to interpret this result as normal/abnormal. Specimen Source (test code = 2795) Lab Interpretation (test code = 96847-2) [facility] Rkklaumyymv9437-19-71 00:03:35* Test Item Value Reference Range Interpretation Comme nts Color, UA (test code = 5778-6) Reanna Clarity, UA (test code = 5767-9) Clear Specific Sallis, UA (test code = 5811-5) 1.010 1.001-1.035 pH, UA (test code = 5803-2) 7.0 5.0-8.0 Protein, UA (test code = 36695-1) Trace Negative A Glucose, UA (test code = 365) Negative Negative Ketones, UA (test code = 2514-8) Trace Negative A Bilirubin, UA (test code = 09440-6) Positive Negative A Blood, UA (test code = 00182-3) Negative Negative Nitrite, UA (test code = 5802-4) Negative Negative Leukocytes, UA (test code = 5799-2) Negative Negative Urobilinogen, UA (test code = 62092-9) 4.0 Bacteria, UA (test code = 20538-8) None Seen RBC, UA (test code = 799-7) <5 See_Comment [Automated messa ge] The system which generated this result transmitted reference range: /HPF. The reference range was not used to interpret this result as normal/abnormal. WBC, UA (test code = 50015-3) <5 See_Comment [Automated messa ge] The system which generated this result transmitted reference range: /HPF. The reference range was not used to interpret this result as normal/abnormal. SQUAMOUS EPITHELIAL (test code = 61098-7) None Seen See_Comment [Automated message] The system which generated this result transmitted reference range: /HPF. The reference range was not used to interpret this result as normal/abnormal. Specimen Source (test code = 2795) Lab Interpretation (test code = 88446-8) [facility] Beguozipkdt3662-11-27 00:03:35* Test Item Value Reference Range Interpretation Comme nts Color, UA (test code = 5778-6) Reanna Clarity, UA (test code = 5767-9) Clear Specific Sallis, UA (test code = 5811-5) 1.010 1.001-1.035 pH, UA (test code = 5803-2) 7.0 5.0-8.0 Protein, UA (test code = 18325-1) Trace Negative A Glucose, UA (test code = 365) Negative Negative Ketones, UA (test code = 2514-8) Trace Negative A Bilirubin, UA (test code = 68184-8) Positive Negative A Blood, UA (test code = 33601-0) Negative Negative Nitrite, UA (test code = 5802-4) Negative Negative Leukocytes, UA (test code = 5799-2) Negative Negative Urobilinogen, UA (test code = 13435-2) 4.0 Bacteria, UA (test code = 23227-2) None Seen RBC, UA (test code = 799-7) <5 See_Comment [Automated [employer]@Me] The system which generated this result transmitted reference range: /HPF. The reference range was not used to interpret this result as normal/abnormal. WBC, UA (test code = 41276-3) <5 See_Comment [Automated [employer] ge] The system which generated this result transmitted reference range: /HPF. The reference range was not used to interpret this result as normal/abnormal. SQUAMOUS EPITHELIAL (test code = 84595-6) None Seen See_Comment [Automated message] The system which generated this result transmitted reference range: /HPF. The reference range was not used to interpret this result as normal/abnormal. Specimen Source (test code = 2795) Lab Interpretation (test code = 76409-6) [facility]normal [facility] Qqzazdmyysd1088-37-35 00:03:35* Test Item Value Reference Range Interpretation Comme nts Color, UA (test code = 5778-6) Reanna Clarity, UA (test code = 5767-9) Clear Specific Sallis, UA (test code = 5811-5) 1.010 1.001-1.035 pH, UA (test code = 5803-2) 7.0 5.0-8.0 Protein, UA (test code = 20045-4) Trace Negative A Glucose, UA (test code = 365) Negative Negative Ketones, UA (test code = 2514-8) Trace Negative A Bilirubin, UA (test code = 32513-7) Positive Negative A Blood, UA (test code = 93636-3) Negative Negative Nitrite, UA (test code = 5802-4) Negative Negative Leukocytes, UA (test code = 5799-2) Negative Negative Urobilinogen, UA (test code = 60082-6) 4.0 Bacteria, UA (test code = 39404-2) None Seen RBC, UA (test code = 799-7) <5 See_Comment [Automated [employer] ge] The system which generated this result transmitted reference range: /HPF. The reference range was not used to interpret this result as normal/abnormal. WBC, UA (test code = 79429-5) <5 See_Comment [Automated messa ge] The system which generated this result transmitted reference range: /HPF. The reference range was not used to interpret this result as normal/abnormal. SQUAMOUS EPITHELIAL (test code = 18299-3) None Seen See_Comment [Automated message] The system which generated this result transmitted reference range: /HPF. The reference range was not used to interpret this result as normal/abnormal. Specimen Source (test code = 2795) Lab Interpretation (test code = 48015-3) [facility]normal [facility] Pgbyjmhwvxz2766-07-30 00:03:35* Test Item Value Reference Range Interpretation Comme nts Color, UA (test code = 5778-6) Reanna Clarity, UA (test code = 5767-9) Clear Specific Sallis, UA (test code = 5811-5) 1.010 1.001-1.035 pH, UA (test code = 5803-2) 7.0 5.0-8.0 Protein, UA (test code = 90612-7) Trace Negative A Glucose, UA (test code = 365) Negative Negative Ketones, UA (test code = 2514-8) Trace Negative A Bilirubin, UA (test code = 86623-0) Positive Negative A Blood, UA (test code = 45638-9) Negative Negative Nitrite, UA (test code = 5802-4) Negative Negative Leukocytes, UA (test code = 5799-2) Negative Negative Urobilinogen, UA (test code = 68668-8) 4.0 Bacteria, UA (test code = 74053-0) None Seen RBC, UA (test code = 799-7) <5 See_Comment [Automated messa ge] The system which generated this result transmitted reference range: /HPF. The reference range was not used to interpret this result as normal/abnormal. WBC, UA (test code = 00860-4) <5 See_Comment [Automated messa ge] The system which generated this result transmitted reference range: /HPF. The reference range was not used to interpret this result as normal/abnormal. SQUAMOUS EPITHELIAL (test code = 58713-8) None Seen See_Comment [Automated message] The system which generated this result transmitted reference range: /HPF. The reference range was not used to interpret this result as normal/abnormal. Specimen Source (test code = 2795) Lab Interpretation (test code = 63762-6) [facility] Naxnvoyntrk5703-90-04 00:03:35* Test Item Value Reference Range Interpretation Comme nts Color, UA (test code = 5778-6) Reanna Clarity, UA (test code = 5767-9) Clear Specific Sallis, UA (test code = 5811-5) 1.010 1.001-1.035 pH, UA (test code = 5803-2) 7.0 5.0-8.0 Protein, UA (test code = 23621-5) Trace Negative A Glucose, UA (test code = 365) Negative Negative Ketones, UA (test code = 2514-8) Trace Negative A Bilirubin, UA (test code = 83141-5) Positive Negative A Blood, UA (test code = 67665-7) Negative Negative Nitrite, UA (test code = 5802-4) Negative Negative Leukocytes, UA (test code = 5799-2) Negative Negative Urobilinogen, UA (test code = 77454-2) 4.0 Bacteria, UA (test code = 97425-7) None Seen RBC, UA (test code = 799-7) <5 See_Comment [Automated messa ge] The system which generated this result transmitted reference range: /HPF. The reference range was not used to interpret this result as normal/abnormal. WBC, UA (test code = 58697-7) <5 See_Comment [Automated messa ge] The system which generated this result transmitted reference range: /HPF. The reference range was not used to interpret this result as normal/abnormal. SQUAMOUS EPITHELIAL (test code = 11279-4) None Seen See_Comment [Automated message] The system which generated this result transmitted reference range: /HPF. The reference range was not used to interpret this result as normal/abnormal. Specimen Source (test code = 2795) Lab Interpretation (test code = 24220-5) [facility]normal [facility] Usocqkgoffk7667-09-35 00:03:35* Test Item Value Reference Range Interpretation Comme nts Color, UA (test code = 5778-6) Reanna Clarity, UA (test code = 5767-9) Clear Specific Sallis, UA (test code = 5811-5) 1.010 1.001-1.035 pH, UA (test code = 5803-2) 7.0 5.0-8.0 Protein, UA (test code = 73338-3) Trace Negative A Glucose, UA (test code = 365) Negative Negative Ketones, UA (test code = 2514-8) Trace Negative A Bilirubin, UA (test code = 67891-2) Positive Negative A Blood, UA (test code = 90450-9) Negative Negative Nitrite, UA (test code = 5802-4) Negative Negative Leukocytes, UA (test code = 5799-2) Negative Negative Urobilinogen, UA (test code = 66012-6) 4.0 Bacteria, UA (test code = 50031-0) None Seen RBC, UA (test code = 799-7) <5 See_Comment [Automated messa ge] The system which generated this result transmitted reference range: /HPF. The reference range was not used to interpret this result as normal/abnormal. WBC, UA (test code = 76849-6) <5 See_Comment [Automated messa ge] The system which generated this result transmitted reference range: /HPF. The reference range was not used to interpret this result as normal/abnormal. SQUAMOUS EPITHELIAL (test code = 89265-4) None Seen See_Comment [Automated message] The system which generated this result transmitted reference range: /HPF. The reference range was not used to interpret this result as normal/abnormal. Specimen Source (test code = 2795) Lab Interpretation (test code = 49053-4) [facility]normal [facility]/ Pdiizvxrchy8148-39-53 00:03:35* Test Item Value Reference Range Interpretation Comme nts Color, UA (test code = 5778-6) Reanna Clarity, UA (test code = 5767-9) Clear Specific Sallis, UA (test code = 5811-5) 1.010 1.001-1.035 pH, UA (test code = 5803-2) 7.0 5.0-8.0 Protein, UA (test code = 63061-7) Trace Negative A Glucose, UA (test code = 365) Negative Negative Ketones, UA (test code = 2514-8) Trace Negative A Bilirubin, UA (test code = 35915-9) Positive Negative A Blood, UA (test code = 15035-0) Negative Negative Nitrite, UA (test code = 5802-4) Negative Negative Leukocytes, UA (test code = 5799-2) Negative Negative Urobilinogen, UA (test code = 47859-4) 4.0 Bacteria, UA (test code = 41730-4) None Seen RBC, UA (test code = 799-7) <5 See_Comment [Automated [employer]ango[employer]ate[employer] ge] The system which generated this result transmitted reference range: /HPF. The reference range was not used to interpret this result as normal/abnormal. WBC, UA (test code = 51524-0) <5 See_Comment [Automated [employer] ge] The system which generated this result transmitted reference range: /HPF. The reference range was not used to interpret this result as normal/abnormal. SQUAMOUS EPITHELIAL (test code = 40411-4) None Seen See_Comment [Automated message] The system which generated this result transmitted reference range: /HPF. The reference range was not used to interpret this result as normal/abnormal. Specimen Source (test code = 2795) Lab Interpretation (test code = 49332-6) [facility]normal [facility]/ Yuicoizfdzc2982-67-90 00:03:35* Test Item Value Reference Range Interpretation Comme nts Color, UA (test code = 5778-6) Reanna Clarity, UA (test code = 5767-9) Clear Specific Sallis, UA (test code = 5811-5) 1.010 1.001-1.035 pH, UA (test code = 5803-2) 7.0 5.0-8.0 Protein, UA (test code = 68178-5) Trace Negative A Glucose, UA (test code = 365) Negative Negative Ketones, UA (test code = 2514-8) Trace Negative A Bilirubin, UA (test code = 80977-2) Positive Negative A Blood, UA (test code = 58412-3) Negative Negative Nitrite, UA (test code = 5802-4) Negative Negative Leukocytes, UA (test code = 5799-2) Negative Negative Urobilinogen, UA (test code = 50553-0) 4.0 Bacteria, UA (test code = 02625-3) None Seen RBC, UA (test code = 799-7) <5 See_Comment [Automated [employer] ge] The system which generated this result transmitted reference range: /HPF. The reference range was not used to interpret this result as normal/abnormal. WBC, UA (test code = 79450-1) <5 See_Comment [Automated messa ge] The system which generated this result transmitted reference range: /HPF. The reference range was not used to interpret this result as normal/abnormal. SQUAMOUS EPITHELIAL (test code = 63171-1) None Seen See_Comment [Automated message] The system which generated this result transmitted reference range: /HPF. The reference range was not used to interpret this result as normal/abnormal. Specimen Source (test code = 2795) Lab Interpretation (test code = 13295-6) [facility] Cfvizehwtuy6022-69-65 00:03:35* Test Item Value Reference Range Interpretation Comme nts Color, UA (test code = 5778-6) Reanna Clarity, UA (test code = 5767-9) Clear Specific Sallis, UA (test code = 5811-5) 1.010 1.001-1.035 pH, UA (test code = 5803-2) 7.0 5.0-8.0 Protein, UA (test code = 08620-3) Trace Negative A Glucose, UA (test code = 365) Negative Negative Ketones, UA (test code = 2514-8) Trace Negative A Bilirubin, UA (test code = 11066-3) Positive Negative A Blood, UA (test code = 73063-5) Negative Negative Nitrite, UA (test code = 5802-4) Negative Negative Leukocytes, UA (test code = 5799-2) Negative Negative Urobilinogen, UA (test code = 73112-6) 4.0 Bacteria, UA (test code = 85138-6) None Seen RBC, UA (test code = 799-7) <5 See_Comment [Automated messa ge] The system which generated this result transmitted reference range: /HPF. The reference range was not used to interpret this result as normal/abnormal. WBC, UA (test code = 18362-0) <5 See_Comment [Automated messa ge] The system which generated this result transmitted reference range: /HPF. The reference range was not used to interpret this result as normal/abnormal. SQUAMOUS EPITHELIAL (test code = 90146-2) None Seen See_Comment [Automated message] The system which generated this result transmitted reference range: /HPF. The reference range was not used to interpret this result as normal/abnormal. Specimen Source (test code = 2795) Lab Interpretation (test code = 43812-7) [facility] [id number] 00:03:35* Test Item Value Reference Range Interpretation Comme nts Color, UA (test code = 5778-6) Reanna Clarity, UA (test code = 5767-9) Clear Specific Sallis, UA (test code = 5811-5) 1.010 1.001-1.035 pH, UA (test code = 5803-2) 7.0 5.0-8.0 Protein, UA (test code = 49223-9) Trace Negative A Glucose, UA (test code = 365) Negative Negative Ketones, UA (test code = 2514-8) Trace Negative A Bilirubin, UA (test code = 47546-0) Positive Negative A Blood, UA (test code = 27809-1) Negative Negative Nitrite, UA (test code = 5802-4) Negative Negative Leukocytes, UA (test code = 5799-2) Negative Negative Urobilinogen, UA (test code = 62123-6) 4.0 Bacteria, UA (test code = 25676-4) None Seen RBC, UA (test code = 799-7) <5 See_Comment [Automated messa ge] The system which generated this result transmitted reference range: /HPF. The reference range was not used to interpret this result as normal/abnormal. WBC, UA (test code = 07598-8) <5 See_Comment [Automated messa ge] The system which generated this result transmitted reference range: /HPF. The reference range was not used to interpret this result as normal/abnormal. SQUAMOUS EPITHELIAL (test code = 34769-5) None Seen See_Comment [Automated message] The system which generated this result transmitted reference range: /HPF. The reference range was not used to interpret this result as normal/abnormal. Specimen Source (test code = 2795) Lab Interpretation (test code = 86309-2) [facility] [id number] 00:03:35* Test Item Value Reference Range Interpretation Comme nts Color, UA (test code = 5778-6) Reanna Clarity, UA (test code = 5767-9) Clear Specific Sallis, UA (test code = 5811-5) 1.010 1.001-1.035 pH, UA (test code = 5803-2) 7.0 5.0-8.0 Protein, UA (test code = 64866-9) Trace Negative A Glucose, UA (test code = 365) Negative Negative Ketones, UA (test code = 2514-8) Trace Negative A Bilirubin, UA (test code = 40383-7) Positive Negative A Blood, UA (test code = 78985-9) Negative Negative Nitrite, UA (test code = 5802-4) Negative Negative Leukocytes, UA (test code = 5799-2) Negative Negative Urobilinogen, UA (test code = 89465-6) 4.0 Bacteria, UA (test code = 02786-5) None Seen RBC, UA (test code = 799-7) <5 See_Comment [Automated messa ge] The system which generated this result transmitted reference range: /HPF. The reference range was not used to interpret this result as normal/abnormal. WBC, UA (test code = 64509-9) <5 See_Comment [Automated messa ge] The system which generated this result transmitted reference range: /HPF. The reference range was not used to interpret this result as normal/abnormal. SQUAMOUS EPITHELIAL (test code = 33909-2) None Seen See_Comment [Automated message] The system which generated this result transmitted reference range: /HPF. The reference range was not used to interpret this result as normal/abnormal. Specimen Source (test code = 2795) Lab Interpretation (test code = 57927-1) [facility] [id number] 00:03:35* Test Item Value Reference Range Interpretation Comme nts Color, UA (test code = 5778-6) Reanna Clarity, UA (test code = 5767-9) Clear Specific Sallis, UA (test code = 5811-5) 1.010 1.001-1.035 pH, UA (test code = 5803-2) 7.0 5.0-8.0 Protein, UA (test code = 69639-8) Trace Negative A Glucose, UA (test code = 365) Negative Negative Ketones, UA (test code = 2514-8) Trace Negative A Bilirubin, UA (test code = 93350-0) Positive Negative A Blood, UA (test code = 79845-3) Negative Negative Nitrite, UA (test code = 5802-4) Negative Negative Leukocytes, UA (test code = 5799-2) Negative Negative Urobilinogen, UA (test code = 11493-7) 4.0 Bacteria, UA (test code = 15758-0) None Seen RBC, UA (test code = 799-7) <5 See_Comment [Automated MangoPlatea ge] The system which generated this result transmitted reference range: /HPF. The reference range was not used to interpret this result as normal/abnormal. WBC, UA (test code = 53457-6) <5 See_Comment [Automated [employer]ango[employer] ge] The system which generated this result transmitted reference range: /HPF. The reference range was not used to interpret this result as normal/abnormal. SQUAMOUS EPITHELIAL (test code = 87948-0) None Seen See_Comment [Automated message] The system which generated this result transmitted reference range: /HPF. The reference range was not used to interpret this result as normal/abnormal. Specimen Source (test code = 2795) Lab Interpretation (test code = 74040-1) [facility]normal [facility] [id number] 00:03:35* Test Item Value Reference Range Interpretation Comme nts Color, UA (test code = 5778-6) Reanna Clarity, UA (test code = 5767-9) Clear Specific Sallis, UA (test code = 5811-5) 1.010 1.001-1.035 pH, UA (test code = 5803-2) 7.0 5.0-8.0 Protein, UA (test code = 94192-8) Trace Negative A Glucose, UA (test code = 365) Negative Negative Ketones, UA (test code = 2514-8) Trace Negative A Bilirubin, UA (test code = 06243-8) Positive Negative A Blood, UA (test code = 66190-8) Negative Negative Nitrite, UA (test code = 5802-4) Negative Negative Leukocytes, UA (test code = 5799-2) Negative Negative Urobilinogen, UA (test code = 37977-0) 4.0 Bacteria, UA (test code = 66712-1) None Seen RBC, UA (test code = 799-7) <5 See_Comment [Automated Mango[employer]ate[employer] ge] The system which generated this result transmitted reference range: /HPF. The reference range was not used to interpret this result as normal/abnormal. WBC, UA (test code = 05917-1) <5 See_Comment [Automated [employer]ango[employer] ge] The system which generated this result transmitted reference range: /HPF. The reference range was not used to interpret this result as normal/abnormal. SQUAMOUS EPITHELIAL (test code = 99011-4) None Seen See_Comment [Automated message] The system which generated this result transmitted reference range: /HPF. The reference range was not used to interpret this result as normal/abnormal. Specimen Source (test code = 2795) Lab Interpretation (test code = 57411-4) [facility] [id number] 00:03:35* Test Item Value Reference Range Interpretation Comme nts Color, UA (test code = 5778-6) Reanna Clarity, UA (test code = 5767-9) Clear Specific Sallis, UA (test code = 5811-5) 1.010 1.001-1.035 pH, UA (test code = 5803-2) 7.0 5.0-8.0 Protein, UA (test code = 50201-5) Trace Negative A Glucose, UA (test code = 365) Negative Negative Ketones, UA (test code = 2514-8) Trace Negative A Bilirubin, UA (test code = 22904-4) Positive Negative A Blood, UA (test code = 66744-5) Negative Negative Nitrite, UA (test code = 5802-4) Negative Negative Leukocytes, UA (test code = 5799-2) Negative Negative Urobilinogen, UA (test code = 10283-1) 4.0 Bacteria, UA (test code = 76489-1) None Seen RBC, UA (test code = 799-7) <5 See_Comment [Automated Mango[employer]ate[employer] ge] The system which generated this result transmitted reference range: /HPF. The reference range was not used to interpret this result as normal/abnormal. WBC, UA (test code = 40181-2) <5 See_Comment [Automated messa ge] The system which generated this result transmitted reference range: /HPF. The reference range was not used to interpret this result as normal/abnormal. SQUAMOUS EPITHELIAL (test code = 02486-1) None Seen See_Comment [Automated message] The system which generated this result transmitted reference range: /HPF. The reference range was not used to interpret this result as normal/abnormal. Specimen Source (test code = 2795) Lab Interpretation (test code = 72357-2) [facility] [id number] 00:03:35* Test Item Value Reference Range Interpretation Comme nts Color, UA (test code = 5778-6) Reanna Clarity, UA (test code = 5767-9) Clear Specific Sallis, UA (test code = 5811-5) 1.010 1.001-1.035 pH, UA (test code = 5803-2) 7.0 5.0-8.0 Protein, UA (test code = 96453-3) Trace Negative A Glucose, UA (test code = 365) Negative Negative Ketones, UA (test code = 2514-8) Trace Negative A Bilirubin, UA (test code = 41541-9) Positive Negative A Blood, UA (test code = 21267-4) Negative Negative Nitrite, UA (test code = 5802-4) Negative Negative Leukocytes, UA (test code = 5799-2) Negative Negative Urobilinogen, UA (test code = 18396-4) 4.0 Bacteria, UA (test code = 96260-6) None Seen RBC, UA (test code = 799-7) <5 See_Comment [Automated messa ge] The system which generated this result transmitted reference range: /HPF. The reference range was not used to interpret this result as normal/abnormal. WBC, UA (test code = 64198-9) <5 See_Comment [Automated messa ge] The system which generated this result transmitted reference range: /HPF. The reference range was not used to interpret this result as normal/abnormal. SQUAMOUS EPITHELIAL (test code = 89312-3) None Seen See_Comment [Automated message] The system which generated this result transmitted reference range: /HPF. The reference range was not used to interpret this result as normal/abnormal. Specimen Source (test code = 2795) Lab Interpretation (test code = 74517-4) [facility] [id number] 00:03:35* Test Item Value Reference Range Interpretation Comme nts Color, UA (test code = 5778-6) Reanna Clarity, UA (test code = 5767-9) Clear Specific Sallis, UA (test code = 5811-5) 1.010 1.001-1.035 pH, UA (test code = 5803-2) 7.0 5.0-8.0 Protein, UA (test code = 35398-7) Trace Negative A Glucose, UA (test code = 365) Negative Negative Ketones, UA (test code = 2514-8) Trace Negative A Bilirubin, UA (test code = 79183-6) Positive Negative A Blood, UA (test code = 14396-3) Negative Negative Nitrite, UA (test code = 5802-4) Negative Negative Leukocytes, UA (test code = 5799-2) Negative Negative Urobilinogen, UA (test code = 10648-0) 4.0 Bacteria, UA (test code = 46515-9) None Seen RBC, UA (test code = 799-7) <5 See_Comment [Automated messa ge] The system which generated this result transmitted reference range: /HPF. The reference range was not used to interpret this result as normal/abnormal. WBC, UA (test code = 58125-9) <5 See_Comment [Automated messa ge] The system which generated this result transmitted reference range: /HPF. The reference range was not used to interpret this result as normal/abnormal. SQUAMOUS EPITHELIAL (test code = 39976-9) None Seen See_Comment [Automated message] The system which generated this result transmitted reference range: /HPF. The reference range was not used to interpret this result as normal/abnormal. Specimen Source (test code = 2795) Lab Interpretation (test code = 87232-3) [facility]normal [facility] [id number] 00:03:35* Test Item Value Reference Range Interpretation Comme nts Color, UA (test code = 5778-6) Reanna Clarity, UA (test code = 5767-9) Clear Specific Sallis, UA (test code = 5811-5) 1.010 1.001-1.035 pH, UA (test code = 5803-2) 7.0 5.0-8.0 Protein, UA (test code = 19508-4) Trace Negative A Glucose, UA (test code = 365) Negative Negative Ketones, UA (test code = 2514-8) Trace Negative A Bilirubin, UA (test code = 79189-2) Positive Negative A Blood, UA (test code = 64438-1) Negative Negative Nitrite, UA (test code = 5802-4) Negative Negative Leukocytes, UA (test code = 5799-2) Negative Negative Urobilinogen, UA (test code = 95578-5) 4.0 Bacteria, UA (test code = 98328-3) None Seen RBC, UA (test code = 799-7) <5 See_Comment [Automated messa ge] The system which generated this result transmitted reference range: /HPF. The reference range was not used to interpret this result as normal/abnormal. WBC, UA (test code = 08701-7) <5 See_Comment [Automated messa ge] The system which generated this result transmitted reference range: /HPF. The reference range was not used to interpret this result as normal/abnormal. SQUAMOUS EPITHELIAL (test code = 53957-0) None Seen See_Comment [Automated message] The system which generated this result transmitted reference range: /HPF. The reference range was not used to interpret this result as normal/abnormal. Specimen Source (test code = 2795) Lab Interpretation (test code = 06241-6) [facility]normal [facility] [id number] 00:03:35* Test Item Value Reference Range Interpretation Comme nts Color, UA (test code = 5778-6) Reanna Clarity, UA (test code = 5767-9) Clear Specific Sallis, UA (test code = 5811-5) 1.010 1.001-1.035 pH, UA (test code = 5803-2) 7.0 5.0-8.0 Protein, UA (test code = 91867-6) Trace Negative A Glucose, UA (test code = 365) Negative Negative Ketones, UA (test code = 2514-8) Trace Negative A Bilirubin, UA (test code = 95150-7) Positive Negative A Blood, UA (test code = 53683-2) Negative Negative Nitrite, UA (test code = 5802-4) Negative Negative Leukocytes, UA (test code = 5799-2) Negative Negative Urobilinogen, UA (test code = 20796-9) 4.0 Bacteria, UA (test code = 90779-5) None Seen RBC, UA (test code = 799-7) <5 See_Comment [Automated MangoPlatea ge] The system which generated this result transmitted reference range: /HPF. The reference range was not used to interpret this result as normal/abnormal. WBC, UA (test code = 82091-4) <5 See_Comment [Automated messa ge] The system which generated this result transmitted reference range: /HPF. The reference range was not used to interpret this result as normal/abnormal. SQUAMOUS EPITHELIAL (test code = 44494-6) None Seen See_Comment [Automated message] The system which generated this result transmitted reference range: /HPF. The reference range was not used to interpret this result as normal/abnormal. Specimen Source (test code = 2795) Lab Interpretation (test code = 84949-3) [facility]normal [facility] [id number] 00:03:35* Test Item Value Reference Range Interpretation Comme nts Color, UA (test code = 5778-6) Reanna Clarity, UA (test code = 5767-9) Clear Specific Sallis, UA (test code = 5811-5) 1.010 1.001-1.035 pH, UA (test code = 5803-2) 7.0 5.0-8.0 Protein, UA (test code = 12517-2) Trace Negative A Glucose, UA (test code = 365) Negative Negative Ketones, UA (test code = 2514-8) Trace Negative A Bilirubin, UA (test code = 18254-0) Positive Negative A Blood, UA (test code = 15641-6) Negative Negative Nitrite, UA (test code = 5802-4) Negative Negative Leukocytes, UA (test code = 5799-2) Negative Negative Urobilinogen, UA (test code = 09931-2) 4.0 Bacteria, UA (test code = 94759-9) None Seen RBC, UA (test code = 799-7) <5 See_Comment [Automated Mango[employer]ate[employer] ge] The system which generated this result transmitted reference range: /HPF. The reference range was not used to interpret this result as normal/abnormal. WBC, UA (test code = 94672-2) <5 See_Comment [Automated [employer]ango[employer]ate[employer] ge] The system which generated this result transmitted reference range: /HPF. The reference range was not used to interpret this result as normal/abnormal. SQUAMOUS EPITHELIAL (test code = 08149-7) None Seen See_Comment [Automated message] The system which generated this result transmitted reference range: /HPF. The reference range was not used to interpret this result as normal/abnormal. Specimen Source (test code = 2795) Lab Interpretation (test code = 77305-7) [facility]normal [facility] Cqsyjldjeft0333-92-40 00:03:35* Test Item Value Reference Range Interpretation Comme nts Color, UA (test code = 5778-6) Reanna Clarity, UA (test code = 5767-9) Clear Specific Sallis, UA (test code = 5811-5) 1.010 1.001-1.035 pH, UA (test code = 5803-2) 7.0 5.0-8.0 Protein, UA (test code = 28370-6) Trace Negative A Glucose, UA (test code = 365) Negative Negative Ketones, UA (test code = 2514-8) Trace Negative A Bilirubin, UA (test code = 86413-3) Positive Negative A Blood, UA (test code = 94143-0) Negative Negative Nitrite, UA (test code = 5802-4) Negative Negative Leukocytes, UA (test code = 5799-2) Negative Negative Urobilinogen, UA (test code = 04626-1) 4.0 Bacteria, UA (test code = 18793-3) None Seen RBC, UA (test code = 799-7) <5 See_Comment [Automated messa ge] The system which generated this result transmitted reference range: /HPF. The reference range was not used to interpret this result as normal/abnormal. WBC, UA (test code = 77573-6) <5 See_Comment [Automated messa ge] The system which generated this result transmitted reference range: /HPF. The reference range was not used to interpret this result as normal/abnormal. SQUAMOUS EPITHELIAL (test code = 63022-5) None Seen See_Comment [Automated message] The system which generated this result transmitted reference range: /HPF. The reference range was not used to interpret this result as normal/abnormal. Specimen Source (test code = 2795) Lab Interpretation (test code = 80542-3) [facility]normal [facility] [id number] 00:03:35* Test Item Value Reference Range Interpretation Comme nts Color, UA (test code = 5778-6) Reanna Clarity, UA (test code = 5767-9) Clear Specific Sallis, UA (test code = 5811-5) 1.010 1.001-1.035 pH, UA (test code = 5803-2) 7.0 5.0-8.0 Protein, UA (test code = 07358-1) Trace Negative A Glucose, UA (test code = 365) Negative Negative Ketones, UA (test code = 2514-8) Trace Negative A Bilirubin, UA (test code = 10122-5) Positive Negative A Blood, UA (test code = 91015-6) Negative Negative Nitrite, UA (test code = 5802-4) Negative Negative Leukocytes, UA (test code = 5799-2) Negative Negative Urobilinogen, UA (test code = 91313-3) 4.0 Bacteria, UA (test code = 33263-2) None Seen RBC, UA (test code = 799-7) <5 See_Comment [Automated messa ge] The system which generated this result transmitted reference range: /HPF. The reference range was not used to interpret this result as normal/abnormal. WBC, UA (test code = 16982-6) <5 See_Comment [Automated messa ge] The system which generated this result transmitted reference range: /HPF. The reference range was not used to interpret this result as normal/abnormal. SQUAMOUS EPITHELIAL (test code = 99043-2) None Seen See_Comment [Automated message] The system which generated this result transmitted reference range: /HPF. The reference range was not used to interpret this result as normal/abnormal. Specimen Source (test code = 2795) Lab Interpretation (test code = 05295-3) [facility] [id number] 00:03:35* Test Item Value Reference Range Interpretation Comme nts Color, UA (test code = 5778-6) Reanna Clarity, UA (test code = 5767-9) Clear Specific Sallis, UA (test code = 5811-5) 1.010 1.001-1.035 pH, UA (test code = 5803-2) 7.0 5.0-8.0 Protein, UA (test code = 45514-3) Trace Negative A Glucose, UA (test code = 365) Negative Negative Ketones, UA (test code = 2514-8) Trace Negative A Bilirubin, UA (test code = 24754-0) Positive Negative A Blood, UA (test code = 21863-5) Negative Negative Nitrite, UA (test code = 5802-4) Negative Negative Leukocytes, UA (test code = 5799-2) Negative Negative Urobilinogen, UA (test code = 43345-7) 4.0 Bacteria, UA (test code = 24515-9) None Seen RBC, UA (test code = 799-7) <5 See_Comment [Automated messa ge] The system which generated this result transmitted reference range: /HPF. The reference range was not used to interpret this result as normal/abnormal. WBC, UA (test code = 64327-1) <5 See_Comment [Automated messa ge] The system which generated this result transmitted reference range: /HPF. The reference range was not used to interpret this result as normal/abnormal. SQUAMOUS EPITHELIAL (test code = 43552-8) None Seen See_Comment [Automated message] The system which generated this result transmitted reference range: /HPF. The reference range was not used to interpret this result as normal/abnormal. Specimen Source (test code = 2795) Lab Interpretation (test code = 36053-2) [facility] [id number] 00:03:35* Test Item Value Reference Range Interpretation Comme nts Color, UA (test code = 5778-6) Reanna Clarity, UA (test code = 5767-9) Clear Specific Sallis, UA (test code = 5811-5) 1.010 1.001-1.035 pH, UA (test code = 5803-2) 7.0 5.0-8.0 Protein, UA (test code = 61483-0) Trace Negative A Glucose, UA (test code = 365) Negative Negative Ketones, UA (test code = 2514-8) Trace Negative A Bilirubin, UA (test code = 48137-9) Positive Negative A Blood, UA (test code = 08407-4) Negative Negative Nitrite, UA (test code = 5802-4) Negative Negative Leukocytes, UA (test code = 5799-2) Negative Negative Urobilinogen, UA (test code = 80538-1) 4.0 Bacteria, UA (test code = 80765-4) None Seen RBC, UA (test code = 799-7) <5 See_Comment [Automated [employer]ango[employer] ge] The system which generated this result transmitted reference range: /HPF. The reference range was not used to interpret this result as normal/abnormal. WBC, UA (test code = 47884-0) <5 See_Comment [Automated messa ge] The system which generated this result transmitted reference range: /HPF. The reference range was not used to interpret this result as normal/abnormal. SQUAMOUS EPITHELIAL (test code = 07303-8) None Seen See_Comment [Automated message] The system which generated this result transmitted reference range: /HPF. The reference range was not used to interpret this result as normal/abnormal. Specimen Source (test code = 2795) Lab Interpretation (test code = 23567-9) [facility] [id number] 00:03:35* Test Item Value Reference Range Interpretation Comme nts Color, UA (test code = 5778-6) Reanna Clarity, UA (test code = 5767-9) Clear Specific Sallis, UA (test code = 5811-5) 1.010 1.001-1.035 pH, UA (test code = 5803-2) 7.0 5.0-8.0 Protein, UA (test code = 92471-0) Trace Negative A Glucose, UA (test code = 365) Negative Negative Ketones, UA (test code = 2514-8) Trace Negative A Bilirubin, UA (test code = 93848-4) Positive Negative A Blood, UA (test code = 55357-4) Negative Negative Nitrite, UA (test code = 5802-4) Negative Negative Leukocytes, UA (test code = 5799-2) Negative Negative Urobilinogen, UA (test code = 23066-2) 4.0 Bacteria, UA (test code = 28108-2) None Seen RBC, UA (test code = 799-7) <5 See_Comment [Automated messa ge] The system which generated this result transmitted reference range: /HPF. The reference range was not used to interpret this result as normal/abnormal. WBC, UA (test code = 91260-8) <5 See_Comment [Automated messa ge] The system which generated this result transmitted reference range: /HPF. The reference range was not used to interpret this result as normal/abnormal. SQUAMOUS EPITHELIAL (test code = 18573-5) None Seen See_Comment [Automated message] The system which generated this result transmitted reference range: /HPF. The reference range was not used to interpret this result as normal/abnormal. Specimen Source (test code = 2795) Lab Interpretation (test code = 65141-1) [facility] [id number] 00:03:35* Test Item Value Reference Range Interpretation Comme nts COLOR (BEAKER) (test code = 470) Reanna CLARITY (BEAKER) (test code = 469) Clear SPECIFIC GRAVITY UA (BEAKER) (test code = 468) 1.010 1.001-1.035 PH UA (BEAKER) (test code = 467) 7.0 5.0-8.0 PROTEIN UA (BEAKER) (test co de = 464) Trace Negative A GLUCOSE UA (BEAKER) (test co de = 365) Negative Negative KETONES UA (BEAKER) (test co de = 371) Trace Negative A BILIRUBIN UA (BEAKER) (test code = 462) Positive Negative A BLOOD UA (BEAKER) (test code = 461) Negative Negative NITRITE UA (BEAKER) (test co de = 465) Negative Negative LEUKOCYTE ESTERASE UA (BEAKE R) (test code = 466) Negative Negative UROBILINOGEN UA (BEAKER) (te st code = 463) 4.0 BACTERIA (BEAKER) (test code = 517) None Seen RBC UA-MANUAL (BEAKER) (test code = 1659) <5 /HPF WBC UA-MANUAL (BEAKER) (test code = 1661) <5 /HPF SQUAMOUS EPITHELIAL MANUAL (BEAKER) (test code = 1663) None Seen /HPF SOURCE(BEAKER) (test code = 2795) TROPONIN [id number] 17:04:20* Test Item Value Reference Range Interpretation Comme nts TROPONIN I (BEAKER) (test code = 397) [...] failure, acidosis, acute neurological disease, and persistent tachyarrhythmia.Heel Seam [employer]ber ID - [id number] METABOLIC [id number] 16:58:17* Test Item Value Reference Range Interpretation Comme nts TOTAL PROTEIN (BEAKER) (test code = 770) 7.8 gm/dL 6.0-8.5 ALBUMIN (BEAKER) (test code = 1145) 3.2 g/dL 3.5-5.0 L ALKALINE PHOSPHATASE (BEAKER) (test code = 346) 91 U/L 30-115 BILIRUBIN TOTAL (BEAKER) (test code = 377) 2.0 mg/dL 0.1-1.2 H SODIUM (BEAKER) (test code = 381) 141 meq/L 135-148 POTASSIUM (BEAKER) (test code = 379) 3.7 meq/L 3.6-5.5 CHLORIDE (BEAKER) (test code = 382) 103 meq/L 98-106 CO2 (BEAKER) (test code = 355) 25 meq/L 20-29 BLOOD UREA NITROGEN (BEAKER) (test code = 354) 13 mg/dL 10-26 CREATININE (BEAKER) (test code = 358) 0.88 mg/dL 0.50-1.20 GLUCOSE RANDOM (BEAKER) (test code = 652) 123 mg/dL 70-110 H CALCIUM (BEAKER) (test code = 697) 8.2 mg/dL 8.5-10.5 L AST (SGOT) (BEAKER) (test code = 353) 110 U/L 5-40 H ALT (SGPT) (BEAKER) (test code = 347) 33 U/L 5-50 EGFR (BEAKER) (test code = 1092) 101 mL/min/1.73 sq m Interpretation of eG FR values Stage Description Result G1 Normal or high >=90 G2 Mildly decreased 60-89 G3a Mildly to moderately 45-59 G3b Moderately to severely 30-44 G4 Severly decreased 15-29 G5 Kidney failure <15Reported eGFR is based on the CKD-EPI 2020 equation that does not use a race coefficientEstimated GFR is not as accurate as Creatinine Clearance in predicting glomerular filtration rate. Estimated GFR is not applicable for dialysis patients He[employer] Se[employer] ID - [id number] ID - [id number] ID - [id number] ID - [id number] ID - [id number] ID - VZVRDN520Wqwdosml ID - ONHAZS661Eptftzpd ID - [id number] ID - [id number] ID - [id number] ID - [id number] ID - [id number] ID - [id number] perator ID - [id number] ID - [id number] ID - [id number] 2022-12-14 16:58:11* Test Item Value Reference Range Interpretation Comme nts MAGNESIUM (BEAKER) (test cod e = 627) 1.2 mg/dL 1.5-3.0 L He[employer] Se[employer] ID - [id number] ID - [id number] ID - [id number] ID - [id number] W/PLT COUNT & AUTO [id number] 16:49:49* Test Item Value Reference Range Interpretation Comme nts WHITE BLOOD CELL COUNT (BEAK ER) (test code = 775) 6.9 K/ L 4.0-10.0 RED BLOOD CELL COUNT (BEAKER ) (test code = 761) 2.83 M/ L 4.20-5.80 L HEMOGLOBIN (BEAKER) (test co de = 410) 8.2 GM/DL 13.0-16.8 L HEMATOCRIT (BEAKER) (test co de = 411) 26.0 % 36.0-50.0 L MEAN CORPUSCULAR VOLUME (CHERELLE KER) (test code = 753) 92 fL 82-99 MEAN CORPUSCULAR HEMOGLOBIN (BEAKER) (test code = 751) 29.0 pg 27.0-33.0 MEAN CORPUSCULAR HEMOGLOBIN CONC (BEAKER) (test code = 752) 31.5 GM/DL 32.0-36.0 L RED CELL DISTRIBUTION WIDTH (BEAKER) (test code = 412) 15.9 % 12.0-15.0 H PLATELET COUNT (BEAKER) (rudy t code = 756) 83 K/CU MM 150-430 L MEAN PLATELET VOLUME (BEAKER ) (test code = 754) 11.1 fL 6.0-11.5 NUCLEATED RED BLOOD CELLS (B EAKER) (test code = 413) 0 /100 WBC 0-0 NEUTROPHILS RELATIVE PERCENT (BEAKER) (test code = 429) 67 % LYMPHOCYTES RELATIVE PERCENT (BEAKER) (test code = 430) 16 % MONOCYTES RELATIVE PERCENT (BEAKER) (test code = 431) 15 % EOSINOPHILS RELATIVE PERCENT (BEAKER) (test code = 432) 0 % BASOPHILS RELATIVE PERCENT (BEAKER) (test code = 437) 2 % NEUTROPHILS ABSOLUTE COUNT (BEAKER) (test code = 670) 4.62 K/ L 1.80-8.00 LYMPHOCYTES ABSOLUTE COUNT (BEAKER) (test code = 414) 1.09 K/ L 1.48-4.50 L MONOCYTES ABSOLUTE COUNT (BE GUZMAN) (test code = 415) 1.02 K/ L 0.00-1.30 EOSINOPHILS ABSOLUTE COUNT (BEAKER) (test code = 416) 0.01 K/ L 0.00-0.50 BASOPHILS ABSOLUTE COUNT (BE GUZMAN) (test code = 417) 0.15 K/ L 0.00-0.20 IMMATURE GRANULOCYTES-RELATI VE PERCENT (MIGUELAKER) (test code = 2801) 0.60 % 0.00-0.00 H BASIC METABOLIC PANEL (NA, K, CL, CO2, GLUCOSE, BUN, CREATININE, CA)2022-10-09 11:07:02* Test Item Value Reference Range Interpretation Comme nts NA (test code = 8831035019) 136 mmol/L 135-145 K (test code = 0954879170) 3.6 mmol/L 3.5-5.0 CL (test code = 8655012938) 107 mmol/L 98-108 CO2 TOTAL (test code = 0027475600) 25 mmol/L 23-31 AGAP (test code = 1815617238) 4 2-16 BUN (test code = 9146440222) 10 mg/dL 7-23 GLUCOSE (test code = 4651728836) 101 mg/dL 70-110 CREATININE (test code = 1155229428) 0.73 mg/dL 0.60-1.25 CALCIUM (test code = 1796280706) 7.6 mg/dL 8.6-10.6 L eGFR (test code = 1390276007) 110.7 mL/min/1.73m2 TERESA (test code = TERESA) [...] imaging tests). Lab Interpretation (test code = 02987-7) [facility] 11:07:02* Test Item Value Reference Range Interpretation Comme nts MAGNESIUM (test code = 6528207001) 1.6 mg/dL 1.7-2.4 L Lab Interpretation (test cod e = 32746-9) [facility]normal [facility] PAN[facility] (91224) (ALB,T.PRO,BILI T,BU/BC,ALT,AST,ALK PHOS)2022-10-09 11:07:02* Test Item Value Reference Range Interpretation Comme nts TOTAL BILI (test code = 8573852803) 1.4 mg/dL 0.1-1.1 H BILI UNCON (test code = 0665381950) 0.5 mg/dL 0.1-1.1 BILI CONJ (test code = 9705644203) 0.0 mg/dL 0.0-0.3 T PROTEIN (test code = 2422599046) 7.2 g/dL 6.3-8.2 ALBUMIN (test code = 2940423116) 2.9 g/dL 3.5-5.0 L ALK PHOS (test code = 8995779994) 70 U/L 34-122 ALTv (test code = 1742-6) 36 U/L 5-50 AST(SGOT) (test code = 3455578289) 99 U/L 13-40 H Lab Interpretation (test cod e = 57801-8) [facility]normal [facility]vine[facility]throm[facility] Time / [id number] 10:41:05* Test Item Value Reference Range Interpretation Comme nts PROTIME PATIENT (test code = 5964-2) 15.4 See_Comment H [Automated messa ge] The system which generated this result transmitted reference range: 10.1 - 12.6 Seconds. The reference range was not used to interpret this result as normal/abnormal. INR (test code = 6301-6) 1.4 Normal INR <1.1; Warfarin Therapeutic range 2.0 to 3.0 or 2.5 to 3.5, depending upon the indications. Lab Interpretation (test code = 76871-2) Abnormal [facility] WITH [id number] 10:35:00* Test Item Value Reference Range Interpretation Comme nts WBC (test code = 6690-2) 6.14 See_Comment [Automated messa ge] The system which generated this result transmitted reference range: 4.20 - 10.70 10*3/?L. The reference range was not used to interpret this result as normal/abnormal. RBC (test code = 789-8) 2.42 See_Comment L [Automated messa ge] The system which generated this result transmitted reference range: 4.26 - 5.52 10*6/?L. The reference range was not used to interpret this result as normal/abnormal. HGB (test code = 718-7) 7.2 g/dL 12.2-16.4 L HCT (test code = 4544-3) 22.3 % 38.4-49.3 L MCV (test code = 787-2) 92.1 fL 81.7-95.6 MCH (test code = 785-6) 29.8 pg 26.1-32.7 MCHC (test code = 786-4) 32.3 g/dL 31.2-35.0 RDW-SD (test code = 09348-0) 62.5 fL 38.5-51.6 H RDW-CV (test code = 788-0) 18.5 % 12.1-15.4 H PLT (test code = 777-3) 102 See_Comment L [Automated messa ge] The system which generated this result transmitted reference range: 150 - 328 10*3/?L. The reference range was not used to interpret this result as normal/abnormal. MPV (test code = 14352-3) 10.6 fL 9.8-13.0 NRBC/100 WBC (test code = 3818899233) 0.0 See_Comment [Automated Grokker ssage] The system which generated this result transmitted reference range: 0.0 - 10.0 /100 WBCs. The reference range was not used to interpret this result as normal/abnormal. NRBC x10^3 (test code = 8290296666) See_Comment [Automated messa ge] The system which generated this result transmitted reference range: 10*3/?L. The reference range was not used to interpret this result as normal/abnormal. GRAN MAT (NEUT) % (test code = 770-8) 52.9 % IMM GRAN % (test code = 3957461241) 0.30 % LYMPH % (test code = 736-9) 25.1 % MONO % (test code = 5905-5) 16.0 % EOS % (test code = 713-8) 4.1 % BASO % (test code = 706-2) 1.6 % GRAN MAT x10^3(ANC) (test code = 9750339622) 3.25 10*3/uL 1.99-6.95 IMM GRAN x10^3 (test code = 8114206268) 0.00-0.06 LYMPH x10^3 (test code = 731-0) 1.54 10*3/uL 1.09-3.23 MONO x10^3 (test code = 742-7) 0.98 10*3/uL 0.36-1.02 EOS x10^3 (test code = 711-2) 0.25 10*3/uL 0.06-0.53 BASO x10^3 (test code = 704-7) 0.10 10*3/uL 0.01-0.09 H Lab Interpretation (test code = 84521-8) [facility]normal [facility] (48140) (ALB,T.PRO,BILI T,BU/BC,ALT,AST,ALK PHOS)2022-10-08 14:50:02* Test Item Value Reference Range Interpretation Comme nts TOTAL BILI (test code = 4270927537) 1.3 mg/dL 0.1-1.1 H BILI UNCON (test code = 9654539948) 0.7 mg/dL 0.1-1.1 BILI CONJ (test code = 8489165232) 0.0 mg/dL 0.0-0.3 T PROTEIN (test code = 8409563473) 6.8 g/dL 6.3-8.2 ALBUMIN (test code = 4771656604) 3.0 g/dL 3.5-5.0 L ALK PHOS (test code = 8693009026) 96 U/L 34-122 ALTv (test code = 1742-6) 35 U/L 5-50 AST(SGOT) (test code = 0942262625) 106 U/L 13-40 H Lab Interpretation (test cod e = 66282-8) Abnormal [facility] WITH [id number] 11:09:50* Test Item Value Reference Range Interpretation Comme nts WBC (test code = 6690-2) 6.51 See_Comment [Automated messa ge] The system which generated this result transmitted reference range: 4.20 - 10.70 10*3/?L. The reference range was not used to interpret this result as normal/abnormal. RBC (test code = 789-8) 2.46 See_Comment L [Automated messa ge] The system which generated this result transmitted reference range: 4.26 - 5.52 10*6/?L. The reference range was not used to interpret this result as normal/abnormal. HGB (test code = 718-7) 7.4 g/dL 12.2-16.4 L HCT (test code = 4544-3) 22.2 % 38.4-49.3 L MCV (test code = 787-2) 90.2 fL 81.7-95.6 MCH (test code = 785-6) 30.1 pg 26.1-32.7 MCHC (test code = 786-4) 33.3 g/dL 31.2-35.0 RDW-SD (test code = 74189-8) 63.6 fL 38.5-51.6 H RDW-CV (test code = 788-0) 19.2 % 12.1-15.4 H PLT (test code = 777-3) 107 See_Comment L [Automated messa ge] The system which generated this result transmitted reference range: 150 - 328 10*3/?L. The reference range was not used to interpret this result as normal/abnormal. MPV (test code = 97185-6) 10.1 fL 9.8-13.0 IPF % (test code = 6039378794) 4.4 % 1.2-10.7 Platelet count measured by fluorescence method. NRBC/100 WBC (test code = 2887254382) 0.0 See_Comment [Automated me ssage] The system which generated this result transmitted reference range: 0.0 - 10.0 /100 WBCs. The reference range was not used to interpret this result as normal/abnormal. NRBC x10^3 (test code = 8344739735) See_Comment [Automated messa ge] The system which generated this result transmitted reference range: 10*3/?L. The reference range was not used to interpret this result as normal/abnormal. GRAN MAT (NEUT) % (test code = 770-8) 46.8 % IMM GRAN % (test code = 4774137402) 0.30 % LYMPH % (test code = 736-9) 31.5 % MONO % (test code = 5905-5) 16.6 % EOS % (test code = 713-8) 3.4 % BASO % (test code = 706-2) 1.4 % GRAN MAT x10^3(ANC) (test code = 7685650208) 3.05 10*3/uL 1.99-6.95 IMM GRAN x10^3 (test code = 0508354938) 0.00-0.06 LYMPH x10^3 (test code = 731-0) 2.05 10*3/uL 1.09-3.23 MONO x10^3 (test code = 742-7) 1.08 10*3/uL 0.36-1.02 H EOS x10^3 (test code = 711-2) 0.22 10*3/uL 0.06-0.53 BASO x10^3 (test code = 704-7) 0.09 10*3/uL 0.01-0.09 Lab Interpretation (test code = 21246-1) Abnormal [facility] METABOLIC PANEL (NA, K, CL, CO2, GLUCOSE, BUN, CREATININE, CA)2022-10-08 11:01:09* Test Item Value Reference Range Interpretation Comme nts NA (test code = 5113574597) 137 mmol/L 135-145 K (test code = 6352934593) 4.0 mmol/L 3.5-5.0 CL (test code = 2609555607) 105 mmol/L 98-108 CO2 TOTAL (test code = 3565739555) 28 mmol/L 23-31 AGAP (test code = 5851643934) 4 2-16 BUN (test code = 9861734427) 12 mg/dL 7-23 GLUCOSE (test code = 5035574855) 112 mg/dL 70-110 H CREATININE (test code = 2391861342) 0.87 mg/dL 0.60-1.25 CALCIUM (test code = 7695356050) 7.8 mg/dL 8.6-10.6 L eGFR (test code = 6161526246) 90.4 mL/min/1.73m2 TERESA (test code = TERESA) Association [...] imaging tests). Lab Interpretation (test code = 12194-5) [facility] 11:01:09* Test Item Value Reference Range Interpretation Comme nts MAGNESIUM (test code = 9960473671) 1.4 mg/dL 1.7-2.4 L Lab Interpretation (test cod e = 74949-7) [facility] (NA, K, CL, CO2, GLUCOSE, BUN, CREATININE, CA)2022-08-23 08:22:04* Test Item Value Reference Range Interpretation Comme nts NA (test code = 5994588232) 135 mmol/L 135-145 K (test code = 6319139853) 3.6 mmol/L 3.5-5.0 CL (test code = 0953392841) 104 mmol/L 98-108 CO2 TOTAL (test code = 0762713991) 26 mmol/L 23-31 AGAP (test code = 2190856686) 5 2-16 BUN (test code = 1090826941) 12 mg/dL 7-23 GLUCOSE (test code = 6105263869) 120 mg/dL 70-110 H CREATININE (test code = 9929991714) 1.00 mg/dL 0.60-1.25 CALCIUM (test code = 6588128050) 7.3 mg/dL 8.6-10.6 L eGFR (test code = 1126410799) 77.0 mL/min/1.73m2 TERESA (test code = TERESA) Association [...] imaging tests). Lab Interpretation (test code = 28514-3) [facility]normal [facility]2023-01-31 08:22:04* Test Item Value Reference Range Interpretation Comme nts MAGNESIUM (test code = 6794869057) 1.6 mg/dL 1.7-2.4 L Lab Interpretation (test cod e = 35284-0) Abnormal [facility] WITH [id number] 08:21:28* Test Item Value Reference Range Interpretation Comme nts WBC (test code = 6690-2) 7.08 See_Comment [Automated MangoPlatea Holla@Me] The system which generated this result transmitted reference range: 4.20 - 10.70 10*3/?L. The reference range was not used to interpret this result as normal/abnormal. RBC (test code = 789-8) 2.87 See_Comment L [Automated MangoPlatea Holla@Me] The system which generated this result transmitted reference range: 4.26 - 5.52 10*6/?L. The reference range was not used to interpret this result as normal/abnormal. HGB (test code = 718-7) 7.7 g/dL 12.2-16.4 L HCT (test code = 4544-3) 23.9 % 38.4-49.3 L MCV (test code = 787-2) 83.3 fL 81.7-95.6 MCH (test code = 785-6) 26.8 pg 26.1-32.7 MCHC (test code = 786-4) 32.2 g/dL 31.2-35.0 RDW-SD (test code = 84912-6) 52.6 fL 38.5-51.6 H RDW-CV (test code = 788-0) 17.2 % 12.1-15.4 H PLT (test code = 777-3) 101 See_Comment L [Automated MangoPlatea ge] The system which generated this result transmitted reference range: 150 - 328 10*3/?L. The reference range was not used to interpret this result as normal/abnormal. MPV (test code = 74757-0) 10.5 fL 9.8-13.0 IPF % (test code = 3520856793) 6.6 % 1.2-10.7 Platelet count measured by fluorescence method. NRBC/100 WBC (test code = 6098416214) 0.4 See_Comment [Automated Grokker ssage] The system which generated this result transmitted reference range: 0.0 - 10.0 /100 WBCs. The reference range was not used to interpret this result as normal/abnormal. NRBC x10^3 (test code = 6147626244) 0.03 See_Comment [Automated MangoPlatea ge] The system which generated this result transmitted reference range: 10*3/?L. The reference range was not used to interpret this result as normal/abnormal. GRAN MAT (NEUT) % (test code = 770-8) 55.7 % IMM GRAN % (test code = 5397802145) 0.40 % LYMPH % (test code = 736-9) 24.0 % MONO % (test code = 5905-5) 16.7 % EOS % (test code = 713-8) 1.6 % BASO % (test code = 706-2) 1.6 % GRAN MAT x10^3(ANC) (test code = 3319705328) 3.95 10*3/uL 1.99-6.95 IMM GRAN x10^3 (test code = 0699221324) 0.03 10*3/uL 0.00-0.06 LYMPH x10^3 (test code = 731-0) 1.70 10*3/uL 1.09-3.23 MONO x10^3 (test code = 742-7) 1.18 10*3/uL 0.36-1.02 H EOS x10^3 (test code = 711-2) 0.11 10*3/uL 0.06-0.53 BASO x10^3 (test code = 704-7) 0.11 10*3/uL 0.01-0.09 H Lab Interpretation (test code = 88330-8) [facility]normal [facility]AT[facility] VIRUS (HCV) BY QUANTITATIVE NAAT 2022-08-22 22:28:25* Test Item Value Reference Range Interpretation Comme nts HCV Quantitative NAAT - log IU/mL (test code = 71943-0) 5.28 Not Detected log IU/mL HCV Quantitative NAAT - IU/mL (test code = 39187-2) 405968 Not Detected IU/mL HCV Quantitative Interpretation (test code = 0889619715) Detected Not Detected A TERESA (test code = TERESA) The Aptima HCV Jeronimo nt Dx assay is an FDA-approved real-time grab jack worker-mediate d amplification (TMA) test used for both detection [...] repeat testing if clinically indicated. Lab Interpretation (test code = 65187-1) Abnormal [facility]vinePrepare Packed RBC (in units), 1 Units 2022-08-22 10:17:48* Test Item Value Reference Range Interpretation Comme nts Cross Match Result (test code = 4409) Compatible ISBT Blood Type Code (test code = 672833) 5100 Unit Blood Type (test code = 4410) O Pos Unit Number (test code = 4411) [id number] Blood Expiration Date & Time (test code = 050878) [id number] Status Information (test code = 4412) Issued Product Identification (test code = 4413) Red Blood Cells Product Code (test code = 4414) [id number] Performed at [facility] Laboratory Services - [facility] Blood [address] [place] [address]Bqwq Free: [phone] No. [id number] [facility] GrapevinePOKY GLUCOSE (AUTOMATED)2022-08-22 10:05:36* Test Item Value Reference Range Interpretation Comme [facility] POCT GLU (test code = 7738521396) 98 mg/dL 70-110 Lab Interpretation (test cod e = 15791-7) Normal [facility]rapevineTROPONIN [id number] 09:07:59* Test Item Value Reference Range Interpretation Comments TROPONIN I (test code = 6878317645) 0.005 ng/mL See_Comment [Automated message] The system which generated this result transmitted reference range: <=0.034. The reference range was not used to interpret this result as normal/abnormal. TERESA (test code = TERESA) Reference (Normal) Range (defined by the 99th percentile reference [...] patient's use of biotin. Lab Interpretation (test code = 47498-9) Normal [facility] GrapevineBasi Metabolic Panel (NA, K, CL, CO2, GLUCOSE, BUN, CREATININE, CA)2022-08-22 08:55:20* Test Item Value Reference Range Interpretation Comme [facility] NA (test code = 5475897688) 140 mmol/L 135-145 K (test code = 8977880014) 3.8 mmol/L 3.5-5.0 CL (test code = 5748548447) 110 mmol/L 98-108 H CO2 TOTAL (test code = 7591416920) 21 mmol/L 23-31 L AGAP (test code = 8158543790) 9 2-16 BUN (test code = 1980642609) 11 mg/dL 7-23 GLUCOSE (test code = 1950684204) 58 mg/dL 70-110 L CREATININE (test code = 0405173323) 0.81 mg/dL 0.60-1.25 CALCIUM (test code = 1099481867) 7.7 mg/dL 8.6-10.6 L eGFR (test code = 5485484598) 98.2 mL/min/1.73m2 TERESA (test code = TERESA) Association [...] imaging tests). Lab Interpretation (test code = 74539-8) Abnormal [facility]vineHEPAT[facility] FUNCTION PANEL (54375) (ALB,T.PRO,BILI T,BU/BC,ALT,AST,ALK PHOS)2022-08-22 08:55:20* Test Item Value Reference Range Interpretation Comme nts TOTAL BILI (test code = 9867395986) 1.2 mg/dL 0.1-1.1 H BILI UNCON (test code = 3880501364) 0.3 mg/dL 0.1-1.1 BILI CONJ (test code = 1695118630) 0.0 mg/dL 0.0-0.3 T PROTEIN (test code = 4085493153) 7.3 g/dL 6.3-8.2 ALBUMIN (test code = 1885838123) 3.0 g/dL 3.5-5.0 L ALK PHOS (test code = 8051909994) 84 U/L 34-122 ALTv (test code = 1742-6) 31 U/L 5-50 AST(SGOT) (test code = 9511825188) 93 U/L 13-40 H Lab Interpretation (test cod e = 58623-7) Abnormal [facility]vineABORH Confirmation (Lab Only)2022-08-22 08:27:46* Test Item Value Reference Range Interpretation Comme nts ABO & RH (test code = 20) O Positive Performed at [facility] Laboratory Services - [facility] Blood [place] [address]Toll Free: [phone] No. [id number] [facility] GrapevineType and Screen - ONCE [id number] 07:42:14* Test Item Value Reference Range Interpretation Comme nts ABO & RH (test code = 20) O POSITIVE Performed at [facility] Laboratory Services - [facility] Blood [place] [address]Toll Free: [phone] No. [id number] IAT (test code = 1185) Negative Performed at [facility] Laboratory Services - [address] [address]Mshk Free: [phone] No. [id number] [facility] GrapevineFOLATE2023-01-30 07:00:54* Test Item Value Reference Range Interpretation Comme nts FOLATE SER (test code = 3946897550) 9.3 ng/mL 3.0-20.0 Lab Interpretation (test cod e = 77063-5) Normal [facility] GrapevineHCV [id number] 05:36:54* Test Item Value Reference Range Interpretation Comme nts HCV Ab (test code = 63076-1) Positive HCV Semi-Quantitative (test code = 16563-3) 27.90 APRI (test code = 9464541639) 1.750 TERESA (test code = TERESA) Positive for HCV antibody. This specimen has been reflexed to qualitative PCR test and submitted to [facility]. ?A report will be issued by that laboratory. ?If any questions, contact the Clinical Chemistry Director senior internet sales consultant at [phone].APRI score < 0.5: Suggestive of little to no fibrosisAPRI score > 1.5: Suggestive of moderate to severe fibrosisAPRI score > 2.0: Highly suggestive of cirrhosis. [facility]vineHEPATITIS B SURFACE [id number] 05:33:54* Test Item Value Reference Range Interpretation Comme nts HBsAB (test code = 7298696242) Negative HBsAb Semi-Quantitative (test code = 3182313425) 0.00 mIU/mL TERESA (test code = TERESA) Interpretation: ?Hepatitis B Surface Antibody ? Negative - Patient is considered to be not immune to infection with HBV. ? ? Positive - Anti-HBs detected at greater than or equal to 12 mIU/mL. ?Patient is considered to be immune to infection with HBV. ? [facility]vineIRON [id number] 04:52:12* Test Item Value Reference Range Interpretation Comme nts IRON (test code = 8324568405) 20 ug/dL 50-160 L TIBC (test code = 5897544324) 486 ug/dL 250-410 H % FE SAT (test code = 6593390264) 4 % 20-50 L Lab Interpretation (test cod e = 54652-7) Abnormal [facility]vineSALICYLATE2023-01-30 04:44:00 SALICYLATE<10mg/L08/21/2022 10:44 PM [facility]STUTMB LABORATORY SERVICESTherapeutic Range: ? Analgesic and Antipyretic Use ? 20-100 mg/L ? ? Anti- Inflammatory Use ? 100-250 mg/L Toxic Range: ? Greater than 300 mg/LUnUniversity HospitalACETAMINOPHEN 2022-08-22 04:43:55* Test Item Value Reference Range Interpretation Comme nts ACETAMINOP (test code = 9771688772) 10.0-30.0 L TERESA (test code = TERESA) Toxic: Greater scotty n 200 ug/mL @ 4 hour post ingestion or greater than 50 ug/mL @ 12 hour post ingestion Lab Interpretation (test code = 85490-5) Abnormal [facility]vineVITAMIN B12, [id number] 04:38:09* Test Item Value Reference Range Interpretation Comme nts VIT B12 (test code = 0646790491) 524 pg/mL 240-930 TERESA (test code = TERESA) Biotin has been reported to cause a positive bias, interpret results relative to patient's use of biotin. Lab Interpretation (test code = 45659-7) Normal [facility]vineHAV ANTIBODY (IGG AND IGM)2022-08-22 04:34:23 * Test Item Value Reference Range Interpretation Comme nts HAV Total (test code = 1657006671) Positive HAVT Semi-Quantitative (test code = 8386035752) 0.01 TERESA (test code = TERESA) Indicates past or present infection with HAV or exposure to HAV due to vaccination. [facility]vineFERRITIN [id number] 04:31:12* Test Item Value Reference Range Interpretation Comme nts FERRITIN (test code = 9094918771) 8.0 ng/mL 18.0-464.0 L TERESA (test code = TERESA) Biotin has been reported to cause a negative bias, interpret results relative to patient's use of biotin. Lab Interpretation (test code = 00250-1) [facility]AT[facility] CORE ANTIBODY [id number] 04:23:10* Test Item Value Reference Range Interpretation Comme nts HBCM Semi-Quantitative (test code = 37264-0) 0.05 TERESA (test code = TERESA) Biotin has been reported to cause a negative bias, interpret results relative to patient's use of biotin. [facility] SURFACE [id number] 04:18:09 * Test Item Value Reference Range Interpretation Comme nts HBsAg Semi-Quantitative (rudy t code = 5195-3) 0.05 Negative [facility]vineACTIV[facility] PARTIAL THRMPLAS [id number] 04:17:29* Test Item Value Reference Range Interpretation Comme [facility] APTT Patient (test code = 3173-2) 47 See_Comment H [Automated messa ge] The system which generated this result transmitted reference range: 26 - 36 Seconds. The reference range was not used to interpret this result as normal/abnormal. Lab Interpretation (test code = 63784-4) [facility]normal [facility]vineProthrombin Time / [id number] 04:17:29* Test Item Value Reference Range Interpretation Comme [facility] PROTIME PATIENT (test code = 5964-2) 21.3 See_Comment H [Automated messa Holla@Me] The system which generated this result transmitted reference range: 10.1 - 12.6 Seconds. The reference range was not used to interpret this result as normal/abnormal. INR (test code = 6301-6) 1.9 Normal INR <1.1; Warfarin Therapeutic range 2.0 to 3.0 or 2.5 to 3.5, depending upon the indications. Lab Interpretation (test code = 53703-9) [facility]normal [facility]vineETHANOL2023-01-30 04:10:05* Test Item Value Reference Range Interpretation Comme [facility] ALCOHOL (test code = 9178995865) 89 mg/dL TERESA (test code = TERESA) Toxic Greater than or equal to 80 mg/dL. NOTE: Whole blood values are approximately 10% to 15% lower than serum and plasma. [facility]vineGLYCOSYLATED HEMOGLOBIN (A1C)2022-08-22 04:08:35* Test Item Value Reference Range Interpretation Comme [facility] HGB A1C (test code = 4548-4) 5.3 % 4.0-5.7 TERESA (test code = TERESA) Reference RangesNormal: <5.7%Prediabetes: 5.7 - 6.4%Diabetes: > 6.5% Lab Interpretation (test code = 30708-8) Normal [facility]vineTROPONIN [id number] 04:00:07* Test Item Value Reference Range Interpretation Comments TROPONIN I (test code = 8291420917) 0.005 ng/mL See_Comment [Automated message] The system which generated this result transmitted reference range: <=0.034. The reference range was not used to interpret this result as normal/abnormal. TERESA (test code = TERESA) Reference (Normal) Range (defined by the 99th percentile reference [...] patient's use of biotin. Lab Interpretation (test code = 69173-7) Normal [facility]vineLIPID PANEL (46356)(TOTAL CHOLESTEROL, TRIGLYCERIDES, HDL)2022-08-22 03:48:09* Test Item Value Reference Range Interpretation Comme nts CHOL (test code = 7916438979) 84 mg/dL 120-200 L HDL (test code = 5010410507) 23 mg/dL See_Comment L [Automated Elance] The system which generated this result transmitted reference range: >=40. The reference range was not used to interpret this result as normal/abnormal. HDLC RATIO (test code = 7082852033) 3.7 See_Comment [Automated Elance] The system which generated this result transmitted reference range: <=5.0. The reference range was not used to interpret this result as normal/abnormal. TRIG (test code = 3703307237) 85 mg/dL 30-170 LDL CHOL (test code = 17530-3) 44 mg/dL See_Comment [Automated Elance] The system which generated this result transmitted reference range: <=160. The reference range was not used to interpret this result as normal/abnormal. VLDL (test code = 1126453460) 17 mg/dL 5-60 Lab Interpretation (test code = 71474-7) [facility] (NA, K, CL, CO2, GLUCOSE, BUN, CREATININE, CA)2022-08-22 03:47:29* Test Item Value Reference Range Interpretation Comme nts NA (test code = 3691641346) 141 mmol/L 135-145 K (test code = 5114258519) 3.9 mmol/L 3.5-5.0 CL (test code = 1273075851) 109 mmol/L 98-108 H CO2 TOTAL (test code = 7079379477) 24 mmol/L 23-31 AGAP (test code = 8395695496) 8 2-16 BUN (test code = 2595212181) 11 mg/dL 7-23 GLUCOSE (test code = 4941661915) 98 mg/dL 70-110 CREATININE (test code = 9651972007) 0.74 mg/dL 0.60-1.25 CALCIUM (test code = 6828906566) 7.8 mg/dL 8.6-10.6 L eGFR (test code = 5507372058) 109.0 mL/min/1.73m2 TERESA (test code = TERESA) Association [...] imaging tests). Lab Interpretation (test code = 70237-9) Abnormal [facility]AT[facility] FUNCTION PANEL (28550) (ALB,T.PRO,BILI T,BU/BC,ALT,AST,ALK PHOS)2022-08-22 03:47:29* Test Item Value Reference Range Interpretation Comme nts TOTAL BILI (test code = 0598489750) 1.1 mg/dL 0.1-1.1 BILI UNCON (test code = 8159164293) 0.3 mg/dL 0.1-1.1 BILI CONJ (test code = 9609900395) 0.0 mg/dL 0.0-0.3 T PROTEIN (test code = 0917816760) 7.3 g/dL 6.3-8.2 ALBUMIN (test code = 7158672712) 3.0 g/dL 3.5-5.0 L ALK PHOS (test code = 5297141144) 83 U/L 34-122 ALTv (test code = 1742-6) 31 U/L 5-50 AST(SGOT) (test code = 8803130370) 77 U/L 13-40 H Lab Interpretation (test cod e = 34109-0) Abnormal [facility]vineMAGNESIUM2023-01-30 03:47:29* Test Item Value Reference Range Interpretation Comme nts MAGNESIUM (test code = 4907033950) 1.5 mg/dL 1.7-2.4 L Lab Interpretation (test cod e = 25806-1) Abnormal [facility] WITH [id number] 03:36:26* Test Item Value Reference Range Interpretation Comme nts WBC (test code = 6690-2) 6.22 See_Comment [Automated messa ge] The system which generated this result transmitted reference range: 4.20 - 10.70 10*3/?L. The reference range was not used to interpret this result as normal/abnormal. RBC (test code = 789-8) 2.67 See_Comment L [Automated messa ge] The system which generated this result transmitted reference range: 4.26 - 5.52 10*6/?L. The reference range was not used to interpret this result as normal/abnormal. HGB (test code = 718-7) 6.9 g/dL 12.2-16.4 L HCT (test code = 4544-3) 22.0 % 38.4-49.3 L MCV (test code = 787-2) 82.4 fL 81.7-95.6 MCH (test code = 785-6) 25.8 pg 26.1-32.7 L MCHC (test code = 786-4) 31.4 g/dL 31.2-35.0 RDW-SD (test code = 72754-3) 53.3 fL 38.5-51.6 H RDW-CV (test code = 788-0) 17.7 % 12.1-15.4 H PLT (test code = 777-3) 110 See_Comment L [Automated messa ge] The system which generated this result transmitted reference range: 150 - 328 10*3/?L. The reference range was not used to interpret this result as normal/abnormal. MPV (test code = 25015-8) 10.7 fL 9.8-13.0 NRBC/100 WBC (test code = 3570768486) 0.3 See_Comment [Automated Grokker ssage] The system which generated this result transmitted reference range: 0.0 - 10.0 /100 WBCs. The reference range was not used to interpret this result as normal/abnormal. NRBC x10^3 (test code = 0144222222) 0.02 See_Comment [Automated messa ge] The system which generated this result transmitted reference range: 10*3/?L. The reference range was not used to interpret this result as normal/abnormal. GRAN MAT (NEUT) % (test code = 770-8) 52.5 % IMM GRAN % (test code = 3276193586) 0.60 % LYMPH % (test code = 736-9) 25.6 % MONO % (test code = 5905-5) 18.0 % EOS % (test code = 713-8) 1.0 % BASO % (test code = 706-2) 2.3 % GRAN MAT x10^3(ANC) (test code = 6035869969) 3.27 10*3/uL 1.99-6.95 IMM GRAN x10^3 (test code = 8049302967) 0.04 10*3/uL 0.00-0.06 LYMPH x10^3 (test code = 731-0) 1.59 10*3/uL 1.09-3.23 MONO x10^3 (test code = 742-7) 1.12 10*3/uL 0.36-1.02 H EOS x10^3 (test code = 711-2) 0.06 10*3/uL 0.06-0.53 BASO x10^3 (test code = 704-7) 0.14 10*3/uL 0.01-0.09 H Lab Interpretation (test code = 83956-3) Abnormal [facility]vineXR ANKLE RIGHT COMPLETE 3 VIEWS *[id number] 22:56:41[facility] : 1965 Sex: MLocation H 3 1Exam:Right tib-fib, two viewsRight ankle, three viewsHistory: Leg pain. Dog biteComparison: None availableFindings:Marked bimalleolar soft tissue swelling at ankle.No evidence of acute fracture or subluxation. Ankle mortise alignment is maintained. Chronic spurring/chronic hypertrophic changes seen across the interosseous ligament distally.The tibia and fibula are intact. No evidence of soft tissue gas or foreign body.Early vascular calcifications are seen throughout the leg.Impression:1. No evidence of soft tissue gas or foreign body.2. Marked bimalleolar soft tissue swelling. Small ankle joint effusion.3. No acute osseous findings.Electronically signed by: Kate Stover MD 06/08/2022 10:56 PM SENIOR REGULATORY AFFAIRS SPECIALIST LEG RIGHT LOWER/TIB-FIB AP&LAT *OW* 2022-06-08 22:56:41 [facility] : 1965 Sex: MLocation H 31 Exam:Right tib-fib, two viewsRight ankle, three viewsHistory: Leg pain. Dog biteComparison: None availableFindings:Marked bimalleolar soft tissue swelling at ankle.No evidence of acute fracture or subluxation. Ankle mortise alignment is maintained. Chronic spurring/chronic hypertrophic changes seenacross the interosseous ligament distally.The tibia and fibula are intact. No evidence of soft tissue gas or foreign body.Early vascular calcifications are seen throughout the leg.Impression:1. No evidence of soft tissue gas or foreign body.2. Marked bimalleolar soft tissue swelling. Small ankle joint effusion.3. No acute osseous findings.Electronically signed by: Kate Stover MD 06/08/2022 10:56 PM SENIOR REGULATORY AFFAIRS SPECIALIST (INCLUDES AUTOMATED DIFFERENTIAL) * 2022-06-08 22:51:00* Test Item Value Reference Range Interpretation Comme nts WBC (test code = WBC) 7.3 10\\S\\3/uL [...] 0.0-10.0 H RAD, CHEST, 1 VIEW, NON [id number] 13:32:00Reason for exam:->pneumoniaShould this be performed at the bedside?->Yes [facility] : 1965 Sex: MFINALREPORT Exam: RAD, CHEST, 1 VIEW, NON DEPTDate: [...] MDReport Verified Date/Time: 12/28/2021 13:32:10 Reading Location: [facility] Radiology Reading Room (MANUAL DIFFERENTIAL)2021-12-28 05:33:48* Test Item Value Reference Range Interpretation Comme nts NEUTROPHILS - REL (DIFF) (BE GUZMAN) (test code = 1359) 59 % LYMPHOCYTES - REL (DIFF) (BE GUZMAN) (test code = 1360) 12 % MONOCYTES - REL (DIFF) (BEAK ER) (test code = 1361) 20 % EOSINOPHILS - REL (DIFF) (BE GUZMAN) (test code = 1362) 6 % BASOPHILS - REL (DIFF) (BEAK ER) (test code = 1363) 3 % NEUTROPHILS - ABS (DIFF) (BE GUZMAN) (test code = 1365) 4.13 K/ L 1.80-8.00 LYMPHOCYTES - ABS (DIFF) (BE GUZMAN) (test code = 1366) 0.84 K/ L 1.48-4.50 L MONOCYTES - ABS (DIFF) (BEAK ER) (test code = 1367) 1.40 K/ L 0.00-1.30 H EOSINOPHILS - ABS (DIFF) (BE GUZMAN) (test code = 1368) 0.42 K/ L 0.00-0.50 BASOPHILS - ABS (DIFF) (BEAK ER) (test code = 1369) 0.21 K/ L 0.00-0.20 H TOTAL COUNTED (BEAKER) (test code = 1351) 100 WBC MORPHOLOGY (BEAKER) (rudy t code = 487) Normal LARGE PLT(BEAKER) (test code = 2156) Present ANISOCYTOSIS (BEAKER) (test code = 961) 1+ few MICROCYTES (BEAKER) (test co de = 965) 1+ few CBC W/PLT COUNT & AUTO [id number] 05:33:47* Test Item Value Reference Range Interpretation Comme nts WHITE BLOOD CELL COUNT (BEAK ER) (test code = 775) 7.0 K/ L 4.0-10.0 RED BLOOD CELL COUNT (BEAKER ) (test code = 761) 3.55 M/ L 4.20-5.80 L HEMOGLOBIN (BEAKER) (test co de = 410) 10.0 GM/DL 13.0-16.8 L HEMATOCRIT (BEAKER) (test co de = 411) 31.2 % 36.0-50.0 L MEAN CORPUSCULAR VOLUME (CHERELLE KER) (test code = 753) 87.9 fL 82.0-99.0 MEAN CORPUSCULAR HEMOGLOBIN (BEAKER) (test code = 751) 28.2 pg 27.0-33.0 MEAN CORPUSCULAR HEMOGLOBIN CONC (BEAKER) (test code = 752) 32.1 GM/DL 32.0-36.0 RED CELL DISTRIBUTION WIDTH (BEAKER) (test code = 412) 19.2 % 12.0-15.0 H PLATELET COUNT (BEAKER) (rudy t code = 756) 185 K/CU MM 150-430 MEAN PLATELET VOLUME (BEAKER ) (test code = 754) 11.0 fL 6.0-11.5 NUCLEATED RED BLOOD CELLS (BEAKER) (test code = 413) 0 /100 WBC 0-0 NEUTROPHILS RELATIVE PERCENT (BEAKER) (test code = 429) 57 % LYMPHOCYTES RELATIVE PERCENT (BEAKER) (test code = 430) 18 % MONOCYTES RELATIVE PERCENT (BEAKER) (test code = 431) 21 % EOSINOPHILS RELATIVE PERCENT (BEAKER) (test code = 432) 2 % BASOPHILS RELATIVE PERCENT (BEAKER) (test code = 437) 2 % NEUTROPHILS ABSOLUTE COUNT (BEAKER) (test code = 670) 3.96 K/ L 1.80-8.00 LYMPHOCYTES ABSOLUTE COUNT (BEAKER) (test code = 414) 1.24 K/ L 1.48-4.50 L MONOCYTES ABSOLUTE COUNT (BE GUZMAN) (test code = 415) 1.44 K/ L 0.00-1.30 H EOSINOPHILS ABSOLUTE COUNT (BEAKER) (test code = 416) 0.16 K/ L 0.00-0.50 BASOPHILS ABSOLUTE COUNT (BE GUZMAN) (test code = 417) 0.13 K/ L 0.00-0.20 IMMATURE GRANULOCYTES-RELATI VE PERCENT (BEAKER) (test code = 2801) 0 % 0-0 COMPREHENSIVE METABOLIC [id number] 05:32:30* Test Item Value Reference Range Interpretation Comme nts TOTAL PROTEIN (BEAKER) (test code = 770) 8.0 gm/dL 6.0-8.5 ALBUMIN (BEAKER) (test code = 1145) 2.5 g/dL 3.5-5.0 L ALKALINE PHOSPHATASE (BEAKER) (test code = 346) 96 U/L 30-115 BILIRUBIN TOTAL (BEAKER) (test code = 377) 1.7 mg/dL 0.1-1.2 H SODIUM (BEAKER) (test code = 381) 134 meq/L 135-148 L POTASSIUM (BEAKER) (test code = 379) 4.1 meq/L 3.6-5.5 CHLORIDE (BEAKER) (test code = 382) 104 meq/L 98-106 CO2 (BEAKER) (test code = 355) 22 meq/L 20-29 BLOOD UREA NITROGEN (BEAKER) (test code = 354) 5 mg/dL 10-26 L CREATININE (BEAKER) (test code = 358) 0.84 mg/dL 0.50-1.20 GLUCOSE RANDOM (BEAKER) (test code = 652) 105 mg/dL 70-110 CALCIUM (BEAKER) (test code = 697) 8.4 mg/dL 8.5-10.5 L AST (SGOT) (BEAKER) (test code = 353) 64 U/L 5-40 H ALT (SGPT) (BEAKER) (test code = 347) 26 U/L 5-50 EGFR (BEAKER) (test code = 1092) 94 mL/min/1.73 sq m ESTIMATED GFR IS NOT ACCURATE CREATININE CLEARANCE IN PREDICTING GLOMERULAR FILTRATION RATE. ESTIMATED GFR IS NOT APPLICABLE FOR DIALYSIS PATIENTS. He[employer] ID - [id number] ID - [id number] ID - [id number] ID - EIMJOLMZP299Uhacrjiy ID - [id number] ID - UBAFAIHQO531Bbyhreyw ID - ZCFWSDSQM805Cyprcbfx ID - TJPVOOTCW812Jjztgrab ID - UHHHEUYYI310Wplluwvd ID - SUGTTETSM843Wuyuonje ID - [id number] ID - TBIIJDBXS646Reihdzsv ID - [id number] ID - [id number] ID - [id number] ID - [id number] 05:30:12* Test Item Value Reference Range Interpretation Comme nts MAGNESIUM (BEAKER) (test cod e = 627) 1.2 mg/dL 1.5-3.0 L Heel Seam [employer]ber ID - [id number] ID - [id number] ID - KVTKOMXOJ410Odyupjlq ID - [id number] METABOLIC [id number] 05:44:01* Test Item Value Reference Range Interpretation Comme nts SODIUM (BEAKER) (test code = 381) 135 meq/L 135-148 POTASSIUM (BEAKER) (test code = 379) 5.2 meq/L 3.6-5.5 Specimen moder ately hemolyzed CHLORIDE (BEAKER) (test code = 382) 107 meq/L 98-106 H CO2 (BEAKER) (test code = 355) 18 meq/L 20-29 L BLOOD UREA NITROGEN (BEAKER) (test code = 354) 5 mg/dL 10-26 L CREATININE (BEAKER) (test code = 358) 0.63 mg/dL 0.50-1.20 Specimen moder ately hemolyzed GLUCOSE RANDOM (BEAKER) (test code = 652) 67 mg/dL 70-110 L CALCIUM (BEAKER) (test code = 697) 8.6 mg/dL 8.5-10.5 EGFR (BEAKER) (test code = 1092) 131 mL/min/1.73 sq m ESTIMATED GFR IS NOT ACCURATE CREATININE CLEARANCE IN PREDICTING GLOMERULAR FILTRATION RATE. ESTIMATED GFR IS NOT APPLICABLE FOR DIALYSIS PATIENTS. Heel [employer] ID - [id number] ID - [id number] ID - [id number] ID - LZKF42Tmpvosxb ID - UNAR29Rasfrbod ID - NPGV11Mvyvfggu ID - DFYX92Jpzqrhfz ID - DDPQ89Divlnskq ID - PGCJ86Kyarevts ID - FHQV70Xovsahoi ID - IUHJ12Fqurrlan ID - HUHX41Hdboedjq ID - [id number] (HEMOGRAM ONLY)2021-12-27 05:26:40* Test Item Value Reference Range Interpretation Comme nts WHITE BLOOD CELL COUNT (BEAK ER) (test code = 775) 6.6 K/ L 4.0-10.0 RED BLOOD CELL COUNT (BEAKER ) (test code = 761) 3.50 M/ L 4.20-5.80 L HEMOGLOBIN (BEAKER) (test co de = 410) 10.0 GM/DL 13.0-16.8 L HEMATOCRIT (BEAKER) (test co de = 411) 32.1 % 36.0-50.0 L MEAN CORPUSCULAR VOLUME (CHERELLE KER) (test code = 753) 91.7 fL 82.0-99.0 MEAN CORPUSCULAR HEMOGLOBIN (BEAKER) (test code = 751) 28.6 pg 27.0-33.0 MEAN CORPUSCULAR HEMOGLOBIN CONC (BEAKER) (test code = 752) 31.2 GM/DL 32.0-36.0 L RED CELL DISTRIBUTION WIDTH (BEAKER) (test code = 412) 19.4 % 12.0-15.0 H PLATELET COUNT (BEAKER) (rudy t code = 756) 150 K/CU MM 150-430 MEAN PLATELET VOLUME (BEAKER ) (test code = 754) 11.5 fL 6.0-11.5 NUCLEATED RED BLOOD CELLS (BEAKER) (test code = 413) 0 /100 WBC 0-0 U/S, ABDOMINAL, [id number] 03:53:00Abdomen limited area? Add comment if clarification is needed.->LiverReason for exam:->Liver cirrhosis [facility] : 1965 Sex: MFINALREPORT U/S, ABDOMINAL, LIMITED CLINICAL HISTORY: Liver cirrhosis Comparison: None Technique: Real-time transabdominal ultrasound of the right upper quadrant abdomen was performed. Liver: 14.7 cm, heterogeneous echotexture without focal lesion. Mildly nodular liver surface. Gallbladder: The liver contains low-level echoes compatible with sludge without shadowing stone. No gallbladder wall thickening. No pericholecystic fluid. No sonographic Phan's sign. Biliary tree: No intrahepatic ductal dilatation. CBD: 0.4 cm. Pancreas: The visualized portions are unremarkable. Rightkidney: No acute findings. No ascites is present in the abdomen. The visualized portions of the abdominal aorta, IVC and hepatic veins are unremarkable. Impression: Gallbladder sludge without sonographic evidence of acute cholecystitis or cholelithiasis. Mildly nodular liver surface. Signed: Lobito Lux MDReport Verified Date/Time: 12/27/2021 03:53:38 BASIC METABOLIC [id number] 05:41:36* Test Item Value Reference Range Interpretation Comme nts SODIUM (BEAKER) (test code = 381) 136 meq/L 135-148 POTASSIUM (BEAKER) (test code = 379) 3.8 meq/L 3.6-5.5 CHLORIDE (BEAKER) (test code = 382) 107 meq/L 98-106 H CO2 (BEAKER) (test code = 355) 21 meq/L 20-29 BLOOD UREA NITROGEN (BEAKER) (test code = 354) 5 mg/dL 10-26 L CREATININE (BEAKER) (test code = 358) 0.82 mg/dL 0.50-1.20 GLUCOSE RANDOM (BEAKER) (test code = 652) 101 mg/dL 70-110 CALCIUM (BEAKER) (test code = 697) 8.1 mg/dL 8.5-10.5 L EGFR (BEAKER) (test code = 1092) 97 mL/min/1.73 sq m ESTIMATED GFR IS NOT ACCURATE CREATININE CLEARANCE IN PREDICTING GLOMERULAR FILTRATION RATE. ESTIMATED GFR IS NOT APPLICABLE FOR DIALYSIS PATIENTS. He[employer] ID - [id number] ID - [id number] ID - [id number] ID - CWMGEHWFB728Xuvgxdwv ID - NCCWGOMEK197Ydhwoaht ID - FKLPQQHUQ272Epyotcgv ID - KZIMPMJDA787Cgkzxbjn ID - YJQBVRUCG809Hodgaigg ID - PDMVJJIPY629Dwoaupuk ID - [id number] 05:36:42* Test Item Value Reference Range Interpretation Comme nts MAGNESIUM (BEAKER) (test cod e = 627) 1.3 mg/dL 1.5-3.0 L Heel [employer] ID - [id number] ID - [id number] ID - [id number] ID - [id number] (HEMOGRAM ONLY)2021-12-26 05:31:48* Test Item Value Reference Range Interpretation Comme nts WHITE BLOOD CELL COUNT (BEAK ER) (test code = 775) 5.8 K/ L 4.0-10.0 RED BLOOD CELL COUNT (BEAKER ) (test code = 761) 3.34 M/ L 4.20-5.80 L HEMOGLOBIN (BEAKER) (test co de = 410) 9.5 GM/DL 13.0-16.8 L HEMATOCRIT (BEAKER) (test co de = 411) 29.7 % 36.0-50.0 L MEAN CORPUSCULAR VOLUME (CHERELLE KER) (test code = 753) 88.9 fL 82.0-99.0 MEAN CORPUSCULAR HEMOGLOBIN (BEAKER) (test code = 751) 28.4 pg 27.0-33.0 MEAN CORPUSCULAR HEMOGLOBIN CONC (BEAKER) (test code = 752) 32.0 GM/DL 32.0-36.0 RED CELL DISTRIBUTION WIDTH (BEAKER) (test code = 412) 18.7 % 12.0-15.0 H PLATELET COUNT (BEAKER) (rudy t code = 756) 148 K/CU MM 150-430 L MEAN PLATELET VOLUME (BEAKER ) (test code = 754) 11.1 fL 6.0-11.5 NUCLEATED RED BLOOD CELLS (BEAKER) (test code = 413) 0 /100 WBC 0-0 BASIC METABOLIC [id number] 11:36:16* Test Item Value Reference Range Interpretation Comme nts SODIUM (BEAKER) (test code = 381) 133 meq/L 135-148 L POTASSIUM (BEAKER) (test code = 379) 3.9 meq/L 3.6-5.5 CHLORIDE (BEAKER) (test code = 382) 107 meq/L 98-106 H CO2 (BEAKER) (test code = 355) 19 meq/L 20-29 L BLOOD UREA NITROGEN (BEAKER) (test code = 354) 6 mg/dL 10-26 L CREATININE (BEAKER) (test code = 358) 0.78 mg/dL 0.50-1.20 GLUCOSE RANDOM (BEAKER) (test code = 652) 109 mg/dL 70-110 CALCIUM (BEAKER) (test code = 697) 8.0 mg/dL 8.5-10.5 L EGFR (BEAKER) (test code = 1092) 103 mL/min/1.73 sq m ESTIMATED GFR IS NOT ACCURATE CREATININE CLEARANCE IN PREDICTING GLOMERULAR FILTRATION RATE. ESTIMATED GFR IS NOT APPLICABLE FOR DIALYSIS PATIENTS. He[employer] ID - LITOOperator ID - LITOOperator ID - LITOOperator ID - LITOOperator ID - LITOOperator ID - LITOOperator ID - LITOOperator ID - LITOOperator ID - LITOOperator ID - LITOOperator ID - LITOOperator ID - LITOOperator ID - LITOCBC (HEMOGRAM ONLY)2021-12-25 11:05:31* Test Item Value Reference Range Interpretation Comme nts WHITE BLOOD CELL COUNT (BEAK ER) (test code = 775) 6.8 K/ L 4.0-10.0 RED BLOOD CELL COUNT (BEAKER ) (test code = 761) 3.18 M/ L 4.20-5.80 L HEMOGLOBIN (BEAKER) (test co de = 410) 9.2 GM/DL 13.0-16.8 L HEMATOCRIT (BEAKER) (test co de = 411) 27.8 % 36.0-50.0 L MEAN CORPUSCULAR VOLUME (CHERELLE KER) (test code = 753) 87.4 fL 82.0-99.0 MEAN CORPUSCULAR HEMOGLOBIN (BEAKER) (test code = 751) 28.9 pg 27.0-33.0 MEAN CORPUSCULAR HEMOGLOBIN CONC (BEAKER) (test code = 752) 33.1 GM/DL 32.0-36.0 RED CELL DISTRIBUTION WIDTH (BEAKER) (test code = 412) 18.6 % 12.0-15.0 H PLATELET COUNT (BEAKER) (rudy t code = 756) 109 K/CU MM 150-430 L MEAN PLATELET VOLUME (BEAKER ) (test code = 754) 10.8 fL 6.0-11.5 NUCLEATED RED BLOOD CELLS (BEAKER) (test code = 413) 0 /100 WBC 0-0 BASIC METABOLIC [id number] 05:49:14* Test Item Value Reference Range Interpretation Comme nts SODIUM (BEAKER) (test code = 381) 131 meq/L 135-148 L POTASSIUM (BEAKER) (test code = 379) 3.3 meq/L 3.6-5.5 L CHLORIDE (BEAKER) (test code = 382) 106 meq/L 98-106 CO2 (BEAKER) (test code = 355) 20 meq/L 20-29 BLOOD UREA NITROGEN (BEAKER) (test code = 354) 4 mg/dL 10-26 L CREATININE (BEAKER) (test code = 358) 0.78 mg/dL 0.50-1.20 GLUCOSE RANDOM (BEAKER) (test code = 652) 112 mg/dL 70-110 H CALCIUM (BEAKER) (test code = 697) 7.5 mg/dL 8.5-10.5 L EGFR (BEAKER) (test code = 1092) 103 mL/min/1.73 sq m ESTIMATED GFR IS NOT ACCURATE CREATININE CLEARANCE IN PREDICTING GLOMERULAR FILTRATION RATE. ESTIMATED GFR IS NOT APPLICABLE FOR DIALYSIS PATIENTS. [employer] ID - [id number] ID - [id number] ID - [id number] ID - [id number] ID - [id number] ID - [id number] ID - [id number] ID - [id number] ID - [id number] ID - [id number] ID - [id number] ID - [id number] ID - [id number] METABOLIC [id number] 05:59:25* Test Item Value Reference Range Interpretation Comme nts SODIUM (BEAKER) (test code = 381) 135 meq/L 135-148 POTASSIUM (BEAKER) (test code = 379) 3.2 meq/L 3.6-5.5 L CHLORIDE (BEAKER) (test code = 382) 108 meq/L 98-106 H CO2 (BEAKER) (test code = 355) 19 meq/L 20-29 L BLOOD UREA NITROGEN (BEAKER) (test code = 354) 5 mg/dL 10-26 L CREATININE (BEAKER) (test code = 358) 0.78 mg/dL 0.50-1.20 GLUCOSE RANDOM (BEAKER) (test code = 652) 86 mg/dL 70-110 CALCIUM (BEAKER) (test code = 697) 7.5 mg/dL 8.5-10.5 L EGFR (BEAKER) (test code = 1092) 103 mL/min/1.73 sq m ESTIMATED GFR IS NOT ACCURATE CREATININE CLEARANCE IN PREDICTING GLOMERULAR FILTRATION RATE. ESTIMATED GFR IS NOT APPLICABLE FOR DIALYSIS PATIENTS. [employer] ID - [id number] ID - [id number] ID - [id number] ID - [id number] ID - [id number] ID - [id number] ID - [id number] ID - [id number] ID - [id number] ID - [id number] 05:52:55* Test Item Value Reference Range Interpretation Comme nts MAGNESIUM (BEAKER) (test cod e = 627) 1.3 mg/dL 1.5-3.0 L [employer] ID - [id number] ID - [id number] ID - [id number] ID - [id number] BASIC METABOLIC [id number] 06:46:33* Test Item Value Reference Range Interpretation Comme nts SODIUM (BEAKER) (test code = 381) 134 meq/L 135-148 L POTASSIUM (BEAKER) (test code = 379) 3.1 meq/L 3.6-5.5 L CHLORIDE (BEAKER) (test code = 382) 106 meq/L 98-106 CO2 (BEAKER) (test code = 355) 21 meq/L 20-29 BLOOD UREA NITROGEN (BEAKER) (test code = 354) 4 mg/dL 10-26 L CREATININE (BEAKER) (test code = 358) 0.76 mg/dL 0.50-1.20 GLUCOSE RANDOM (BEAKER) (test code = 652) 122 mg/dL 70-110 H CALCIUM (BEAKER) (test code = 697) 7.4 mg/dL 8.5-10.5 L EGFR (BEAKER) (test code = 1092) 106 mL/min/1.73 sq m ESTIMATED GFR IS NOT ACCURATE CREATININE CLEARANCE IN PREDICTING GLOMERULAR FILTRATION RATE. ESTIMATED GFR IS NOT APPLICABLE FOR DIALYSIS PATIENTS. He[employer] ID - LITOOperator ID - LITOOperator ID - LITOOperator ID - LITOOperator ID - LITOOperator ID - LITOOperator ID - LITOOperator ID - LITOOperator ID - LITOOperator ID - [id number] 06:45:09* Test Item Value Reference Range Interpretation Comme nts MAGNESIUM (BEAKER) (test cod e = 627) 1.7 mg/dL 1.5-3.0 [employer] ID - LITOOperator ID - LITOOperator ID - LITOOperator ID - LITOCBC (HEMOGRAM ONLY)2021-12-22 06:26:25* Test Item Value Reference Range Interpretation Comme nts WHITE BLOOD CELL COUNT (BEAK ER) (test code = 775) 7.6 K/ L 4.0-10.0 RED BLOOD CELL COUNT (BEAKER ) (test code = 761) 3.42 M/ L 4.20-5.80 L HEMOGLOBIN (BEAKER) (test co de = 410) 9.7 GM/DL 13.0-16.8 L HEMATOCRIT (BEAKER) (test co de = 411) 29.3 % 36.0-50.0 L MEAN CORPUSCULAR VOLUME (CHERELLE KER) (test code = 753) 85.7 fL 82.0-99.0 MEAN CORPUSCULAR HEMOGLOBIN (BEAKER) (test code = 751) 28.4 pg 27.0-33.0 MEAN CORPUSCULAR HEMOGLOBIN CONC (BEAKER) (test code = 752) 33.1 GM/DL 32.0-36.0 RED CELL DISTRIBUTION WIDTH (BEAKER) (test code = 412) 17.2 % 12.0-15.0 H PLATELET COUNT (BEAKER) (rudy t code = 756) 82 K/CU MM 150-430 L MEAN PLATELET VOLUME (BEAKER ) (test code = 754) 12.3 fL 6.0-11.5 H NUCLEATED RED BLOOD CELLS (B EAKER) (test code = 413) 0 /100 WBC 0-0 BASIC METABOLIC [id number] 06:42:24* Test Item Value Reference Range Interpretation Comme nts SODIUM (BEAKER) (test code = 381) 132 meq/L 135-148 L POTASSIUM (BEAKER) (test code = 379) 3.6 meq/L 3.6-5.5 CHLORIDE (BEAKER) (test code = 382) 103 meq/L 98-106 CO2 (BEAKER) (test code = 355) 22 meq/L 20-29 BLOOD UREA NITROGEN (BEAKER) (test code = 354) 5 mg/dL 10-26 L CREATININE (BEAKER) (test code = 358) 0.90 mg/dL 0.50-1.20 GLUCOSE RANDOM (BEAKER) (test code = 652) 119 mg/dL 70-110 H CALCIUM (BEAKER) (test code = 697) 7.1 mg/dL 8.5-10.5 L EGFR (BEAKER) (test code = 1092) 87 mL/min/1.73 sq m ESTIMATED GFR IS NOT ACCURATE CREATININE CLEARANCE IN PREDICTING GLOMERULAR FILTRATION RATE. ESTIMATED GFR IS NOT APPLICABLE FOR DIALYSIS PATIENTS. He[employer] ID - [id number] ID - [id number] ID - [id number] ID - [id number] ID - GLPT25Uaurnhgf ID - MLFJ82Memdllya ID - OPYZ88Vjnscedu ID - OEPZ65Nbnwtzhr ID - SQKL22Corntyys ID - [id number] 06:39:52* Test Item Value Reference Range Interpretation Comme nts MAGNESIUM (BEAKER) (test cod e = 627) 1.1 mg/dL 1.5-3.0 L [employer] ID - [id number] ID - [id number] ID - ZTVM22Htrfecps ID - [id number] CBC (HEMOGRAM ONLY)2021-12-21 06:26:23* Test Item Value Reference Range Interpretation Comme nts WHITE BLOOD CELL COUNT (BEAK ER) (test code = 775) 8.5 K/ L 4.0-10.0 RED BLOOD CELL COUNT (BEAKER ) (test code = 761) 3.22 M/ L 4.20-5.80 L HEMOGLOBIN (BEAKER) (test co de = 410) 9.2 GM/DL 13.0-16.8 L HEMATOCRIT (BEAKER) (test co de = 411) 27.9 % 36.0-50.0 L MEAN CORPUSCULAR VOLUME (CHERELLE KER) (test code = 753) 86.6 fL 82.0-99.0 MEAN CORPUSCULAR HEMOGLOBIN (BEAKER) (test code = 751) 28.6 pg 27.0-33.0 MEAN CORPUSCULAR HEMOGLOBIN CONC (BEAKER) (test code = 752) 33.0 GM/DL 32.0-36.0 RED CELL DISTRIBUTION WIDTH (BEAKER) (test code = 412) 16.5 % 12.0-15.0 H PLATELET COUNT (BEAKER) (rudy t code = 756) 82 K/CU MM 150-430 L MEAN PLATELET VOLUME (BEAKER ) (test code = 754) 12.1 fL 6.0-11.5 H NUCLEATED RED BLOOD CELLS (B EAKER) (test code = 413) 0 /100 WBC 0-0 COMPREHENSIVE METABOLIC [id number] 07:20:00* Test Item Value Reference Range Interpretation Comme nts TOTAL PROTEIN (BEAKER) (test code = 770) 8.3 gm/dL 6.0-8.5 ALBUMIN (BEAKER) (test code = 1145) 2.6 g/dL 3.5-5.0 L ALKALINE PHOSPHATASE (BEAKER) (test code = 346) 62 U/L 30-115 BILIRUBIN TOTAL (BEAKER) (test code = 377) 2.3 mg/dL 0.1-1.2 H SODIUM (BEAKER) (test code = 381) 135 meq/L 135-148 POTASSIUM (BEAKER) (test code = 379) 3.5 meq/L 3.6-5.5 L CHLORIDE (BEAKER) (test code = 382) 103 meq/L 98-106 CO2 (BEAKER) (test code = 355) 22 meq/L 20-29 BLOOD UREA NITROGEN (BEAKER) (test code = 354) 6 mg/dL 10-26 L CREATININE (BEAKER) (test code = 358) 0.89 mg/dL 0.50-1.20 GLUCOSE RANDOM (BEAKER) (test code = 652) 97 mg/dL 70-110 CALCIUM (BEAKER) (test code = 697) 7.4 mg/dL 8.5-10.5 L AST (SGOT) (BEAKER) (test code = 353) 57 U/L 5-40 H ALT (SGPT) (BEAKER) (test code = 347) 16 U/L 5-50 EGFR (BEAKER) (test code = 1092) 88 mL/min/1.73 sq m ESTIMATED GFR IS NOT ACCURATE CREATININE CLEARANCE IN PREDICTING GLOMERULAR FILTRATION RATE. ESTIMATED GFR IS NOT APPLICABLE FOR DIALYSIS PATIENTS. He[employer] ID - LITOOperator ID - LITOOperator ID - LITOOperator ID - LITOOperator ID - LITOOperator ID - LITOOperator ID - LITOOperator ID - LITOOperator ID - LITOOperator ID - LITOOperator ID - LITOOperator ID - LITOOperator ID - LITOOperator ID - LITOOperator ID - LITOOperator ID - LITOOperator ID- LITOOperator ID - LITOOperator ID - LITOCBC W/PLT COUNT & AUTO DIFFERENTIAL 2021-12-20 07:09:17* Test Item Value Reference Range Interpretation Comme nts WHITE BLOOD CELL COUNT (BEAK ER) (test code = 775) 8.3 K/ L 4.0-10.0 RED BLOOD CELL COUNT (BEAKER ) (test code = 761) 3.48 M/ L 4.20-5.80 L HEMOGLOBIN (BEAKER) (test co de = 410) 9.8 GM/DL 13.0-16.8 L HEMATOCRIT (BEAKER) (test co de = 411) 29.8 % 36.0-50.0 L MEAN CORPUSCULAR VOLUME (CHERELLE KER) (test code = 753) 85.6 fL 82.0-99.0 MEAN CORPUSCULAR HEMOGLOBIN (BEAKER) (test code = 751) 28.2 pg 27.0-33.0 MEAN CORPUSCULAR HEMOGLOBIN CONC (BEAKER) (test code = 752) 32.9 GM/DL 32.0-36.0 RED CELL DISTRIBUTION WIDTH (BEAKER) (test code = 412) 16.0 % 12.0-15.0 H PLATELET COUNT (BEAKER) (rudy t code = 756) 83 K/CU MM 150-430 L MEAN PLATELET VOLUME (BEAKER ) (test code = 754) 12.1 fL 6.0-11.5 H NUCLEATED RED BLOOD CELLS (B EAKER) (test code = 413) 0 /100 WBC 0-0 NEUTROPHILS RELATIVE PERCENT (BEAKER) (test code = 429) 63 % LYMPHOCYTES RELATIVE PERCENT (BEAKER) (test code = 430) 18 % MONOCYTES RELATIVE PERCENT (BEAKER) (test code = 431) 15 % EOSINOPHILS RELATIVE PERCENT (BEAKER) (test code = 432) 2 % BASOPHILS RELATIVE PERCENT (BEAKER) (test code = 437) 2 % NEUTROPHILS ABSOLUTE COUNT (BEAKER) (test code = 670) 5.27 K/ L 1.80-8.00 LYMPHOCYTES ABSOLUTE COUNT (BEAKER) (test code = 414) 1.50 K/ L 1.48-4.50 MONOCYTES ABSOLUTE COUNT (BE GUZMAN) (test code = 415) 1.22 K/ L 0.00-1.30 EOSINOPHILS ABSOLUTE COUNT (BEAKER) (test code = 416) 0.17 K/ L 0.00-0.50 BASOPHILS ABSOLUTE COUNT (BE GUZMAN) (test code = 417) 0.16 K/ L 0.00-0.20 IMMATURE GRANULOCYTES-RELATI VE PERCENT (BEAKER) (test code = 2801) 0 % 0-0 Prepare Leuko-Red [id number] 23:54:00* Test Item Value Reference Range Interpretation Comme nts CROSSMATCH (test code = 2264) COMPATIBLE Unit ABO (test code = 4216844) O Pos UNIT NUMBER (test code = 934-0) [id number] Status (test code = 3565940) TX_TIMEINCHART Blood Bank Product (test cod e = 2263) RED BLOOD CELLS PRODUCT CODE (test code = 933-2) [id number] [facility] [id number] 23:54:00* Test Item Value Reference Range Interpretation Comme nts CROSSMATCH (test code = 2264) COMPATIBLE Unit ABO (test code = 0382754) O Pos UNIT NUMBER (test code = 934-0) [id number] Status (test code = 2996819) TX_TIMEINCHART Blood Bank Product (test cod e = 2263) RED BLOOD CELLS PRODUCT CODE (test code = 933-2) [id number] [facility] [id number] 23:54:00* Test Item Value Reference Range Interpretation Comme nts CROSSMATCH (test code = 2264) COMPATIBLE Unit ABO (test code = 6795505) O Pos UNIT NUMBER (test code = 934-0) [id number] Status (test code = 7012874) TX_TIMEINCHART Blood Bank Product (test cod e = 2263) RED BLOOD CELLS PRODUCT CODE (test code = 933-2) [id number] [facility] [id number] 23:54:00* Test Item Value Reference Range Interpretation Comme nts CROSSMATCH (test code = 2264) COMPATIBLE Unit ABO (test code = 6852124) O Pos UNIT NUMBER (test code = 934-0) [id number] Status (test code = 9081058) TX_TIMEINCHART Blood Bank Product (test cod e = 2263) RED BLOOD CELLS PRODUCT CODE (test code = 933-2) [id number] [facility] [id number] 23:54:00* Test Item Value Reference Range Interpretation Comme nts CROSSMATCH (test code = 2264) COMPATIBLE Unit ABO (test code = 7746991) O Pos UNIT NUMBER (test code = 934-0) [id number] Status (test code = 2647372) TX_TIMEINCHART Blood Bank Product (test cod e = 2263) RED BLOOD CELLS PRODUCT CODE (test code = 933-2) [id number] [facility] [id number] 23:54:00* Test Item Value Reference Range Interpretation Comme nts CROSSMATCH (test code = 2264) COMPATIBLE Unit ABO (test code = 3797787) O Pos UNIT NUMBER (test code = 934-0) [id number] Status (test code = 0673605) TX_TIMEINCHART Blood Bank Product (test cod e = 2263) RED BLOOD CELLS PRODUCT CODE (test code = 933-2) [id number] [facility] [id number] 23:54:00* Test Item Value Reference Range Interpretation Comme nts CROSSMATCH (test code = 2264) COMPATIBLE Unit ABO (test code = 6940943) O Pos UNIT NUMBER (test code = 934-0) [id number] Status (test code = 1036792) TX_TIMEINCHART Blood Bank Product (test cod e = 2263) RED BLOOD CELLS PRODUCT CODE (test code = 933-2) [id number] [facility] [id number] 23:54:00* Test Item Value Reference Range Interpretation Comme nts CROSSMATCH (test code = 2264) COMPATIBLE Unit ABO (test code = 5723926) O Pos UNIT NUMBER (test code = 934-0) [id number] Status (test code = 0504116) TX_TIMEINCHART Blood Bank Product (test cod e = 2263) RED BLOOD CELLS PRODUCT CODE (test code = 933-2) [id number] [facility] Center[facility]PREHENSIVE METABOL[facility] [id number] 06:55:53* Test Item Value Reference Range Interpretation Comme nts TOTAL PROTEIN (BEAKER) (test code = 770) 7.9 gm/dL 6.0-8.5 ALBUMIN (BEAKER) (test code = 1145) 2.5 g/dL 3.5-5.0 L ALKALINE PHOSPHATASE (BEAKER) (test code = 346) 75 U/L 30-115 BILIRUBIN TOTAL (BEAKER) (test code = 377) 2.5 mg/dL 0.1-1.2 H SODIUM (BEAKER) (test code = 381) 133 meq/L 135-148 L POTASSIUM (BEAKER) (test code = 379) 3.4 meq/L 3.6-5.5 L CHLORIDE (BEAKER) (test code = 382) 100 meq/L 98-106 CO2 (BEAKER) (test code = 355) 24 meq/L 20-29 BLOOD UREA NITROGEN (BEAKER) (test code = 354) 5 mg/dL 10-26 L CREATININE (BEAKER) (test code = 358) 0.85 mg/dL 0.50-1.20 GLUCOSE RANDOM (BEAKER) (test code = 652) 119 mg/dL 70-110 H CALCIUM (BEAKER) (test code = 697) 7.4 mg/dL 8.5-10.5 L AST (SGOT) (BEAKER) (test code = 353) 69 U/L 5-40 H ALT (SGPT) (BEAKER) (test code = 347) 18 U/L 5-50 EGFR (BEAKER) (test code = 1092) 93 mL/min/1.73 sq m ESTIMATED GFR IS NOT ACCURATE CREATININE CLEARANCE IN PREDICTING GLOMERULAR FILTRATION RATE. ESTIMATED GFR IS NOT APPLICABLE FOR DIALYSIS PATIENTS. [employer] ID - [id number] ID - [id number] ID - IIUCNKKNX893Kckqwllz ID - OMNTUDZKN234Fvyjobsj ID - GKVJYYVOK060Rvezoppy ID - QMLNWRWCX877Pkhoflpp ID - BBMKWTTVS123Yjfmjcbg ID - ISASNENIR270Pcipugeu ID - CPGUNTXOZ224Hfiindhb ID - UPQXYZYUG112Fpcazhys ID - BDCLQWVYI952Wqnjmync ID - ZPXKZTZWX239Hvjvrjif ID - LWAYDJBCE687Rkbrtnzw ID - CMNMNSJZE238Sskrphqs ID - OQJOQVIEM939Bhmvnapy ID - YGPIEVRGN644Sanhsfsn ID - UEXERULOF787Buxjfbgt ID - YVHCUJPNQ890Xaaqfpmn ID - GTXGDXFDS653Xrinwcoh slightly ictericCBC W/PLT COUNT & AUTO [id number] 06:34:13* Test Item Value Reference Range Interpretation Comme nts WHITE BLOOD CELL COUNT (BEAK ER) (test code = 775) 7.4 K/ L 4.0-10.0 RED BLOOD CELL COUNT (BEAKER ) (test code = 761) 3.53 M/ L 4.20-5.80 L HEMOGLOBIN (BEAKER) (test co de = 410) 9.8 GM/DL 13.0-16.8 L HEMATOCRIT (BEAKER) (test co de = 411) 29.1 % 36.0-50.0 L MEAN CORPUSCULAR VOLUME (CHERELLE KER) (test code = 753) 82.4 fL 82.0-99.0 MEAN CORPUSCULAR HEMOGLOBIN (BEAKER) (test code = 751) 27.8 pg 27.0-33.0 MEAN CORPUSCULAR HEMOGLOBIN CONC (BEAKER) (test code = 752) 33.7 GM/DL 32.0-36.0 RED CELL DISTRIBUTION WIDTH (BEAKER) (test code = 412) 15.8 % 12.0-15.0 H PLATELET COUNT (BEAKER) (rudy t code = 756) 85 K/CU MM 150-430 L MEAN PLATELET VOLUME (BEAKER ) (test code = 754) 11.4 fL 6.0-11.5 NUCLEATED RED BLOOD CELLS (B EAKER) (test code = 413) 0 /100 WBC 0-0 NEUTROPHILS RELATIVE PERCENT (BEAKER) (test code = 429) 56 % LYMPHOCYTES RELATIVE PERCENT (BEAKER) (test code = 430) 22 % MONOCYTES RELATIVE PERCENT (BEAKER) (test code = 431) 18 % EOSINOPHILS RELATIVE PERCENT (BEAKER) (test code = 432) 2 % BASOPHILS RELATIVE PERCENT (BEAKER) (test code = 437) 2 % NEUTROPHILS ABSOLUTE COUNT (BEAKER) (test code = 670) 4.07 K/ L 1.80-8.00 LYMPHOCYTES ABSOLUTE COUNT (BEAKER) (test code = 414) 1.59 K/ L 1.48-4.50 MONOCYTES ABSOLUTE COUNT (BE GUZMAN) (test code = 415) 1.31 K/ L 0.00-1.30 H EOSINOPHILS ABSOLUTE COUNT (BEAKER) (test code = 416) 0.17 K/ L 0.00-0.50 BASOPHILS ABSOLUTE COUNT (BE GUZMAN) (test code = 417) 0.18 K/ L 0.00-0.20 IMMATURE GRANULOCYTES-RELATI VE PERCENT (BEAKER) (test code = 2801) 0 % 0-0 COMPREHENSIVE METABOLIC [id number] 07:01:24* Test Item Value Reference Range Interpretation Comme nts TOTAL PROTEIN (BEAKER) (test code = 770) 7.1 gm/dL 6.0-8.5 ALBUMIN (BEAKER) (test code = 1145) 2.4 g/dL 3.5-5.0 L ALKALINE PHOSPHATASE (BEAKER) (test code = 346) 86 U/L 30-115 BILIRUBIN TOTAL (BEAKER) (test code = 377) 1.6 mg/dL 0.1-1.2 H SODIUM (BEAKER) (test code = 381) 140 meq/L 135-148 POTASSIUM (BEAKER) (test code = 379) 4.3 meq/L 3.6-5.5 CHLORIDE (BEAKER) (test code = 382) 107 meq/L 98-106 H CO2 (BEAKER) (test code = 355) 25 meq/L 20-29 BLOOD UREA NITROGEN (BEAKER) (test code = 354) 5 mg/dL 10-26 L CREATININE (BEAKER) (test code = 358) 1.00 mg/dL 0.50-1.20 GLUCOSE RANDOM (BEAKER) (test code = 652) 103 mg/dL 70-110 CALCIUM (BEAKER) (test code = 697) 7.5 mg/dL 8.5-10.5 L AST (SGOT) (BEAKER) (test code = 353) 67 U/L 5-40 H ALT (SGPT) (BEAKER) (test code = 347) 20 U/L 5-50 EGFR (BEAKER) (test code = 1092) 77 mL/min/1.73 sq m ESTIMATED GFR IS NOT ACCURATE CREATININE CLEARANCE IN PREDICTING GLOMERULAR FILTRATION RATE. ESTIMATED GFR IS NOT APPLICABLE FOR DIALYSIS PATIENTS. [employer] ID - LITOOperator ID - LITOOperator ID - LITOOperator ID - LITOOperator ID - LITOOperator ID - LITOOperator ID - LITOOperator ID - LITOOperator ID - LITOOperator ID - LITOHEPATIC FUNCTION [id number] 07:01:15* Test Item Value Reference Range Interpretation Comme nts TOTAL PROTEIN (BEAKER) (test code = 770) 7.1 gm/dL 6.0-8.5 ALBUMIN (BEAKER) (test code = 1145) 2.4 g/dL 3.5-5.0 L BILIRUBIN TOTAL (BEAKER) (te st code = 377) 1.6 mg/dL 0.1-1.2 H BILIRUBIN DIRECT (BEAKER) (t est code = 706) 1.1 mg/dL 0.0-0.4 H ALKALINE PHOSPHATASE (BEAKER ) (test code = 346) 86 U/L 30-115 AST (SGOT) (BEAKER) (test co de = 353) 67 U/L 5-40 H ALT (SGPT) (BEAKER) (test co de = 347) 20 U/L 5-50 [employer] ID - LITOOperator ID - LITOOperator ID - LITOOperator ID - LITOOperator ID - LITOOperator ID - LITOOperator ID - LITOLIPID [id number] 07:01:14* Test Item Value Reference Range Interpretation Comme nts TRIGLYCERIDES (BEAKER) (test code = 540) 69 mg/dL CHOLESTEROL (BEAKER) (test c ode = 631) 74 mg/dL HDL CHOLESTEROL (BEAKER) (te st code = 976) 16 mg/dL LDL CHOLESTEROL CALCULATED ( BEAKER) (test code = 633) 44 mg/dL Triglyceride Reference Range: Low Risk <150 Borderline 150-199 High Risk 200- 499 Very High Risk>=500Cholesterol Reference Range: Low Risk <200 Borderline 200-239 High Risk >240HDL Cholesterol Reference Range: Low Risk >=60 High Risk <40LDL Cholesterol Reference Range: Optimal <100 Near Optimal 100-129 Borderline 130-159 High 160-189 Very High >=190 [employer] ID - LITOOperator ID - LITOOperator ID - LITOOperator ID - LITOOperator ID - LITOOperator ID - ZION PROTHROMBIN TIME/[id number] 06:59:56* Test Item Value Reference Range Interpretation Comme nts PROTIME (BEAKER) (test code = 759) 16.7 seconds 9.3-12.0 H Final Informat ion (Auto Output) INR (BEAKER) (test code = 370) 1.57 See_Comment Final Informatio n (Auto Output) [Automated message] The system which generated this result transmitted reference range: <=5.90. The reference range was not used to interpret this result as normal/abnormal. RECOMMENDED COUMADIN/WARFARIN INR THERAPY RANGESSTANDARD DOSE: 2.0 - 3.0 Includes: PROPHYLAXIS for venous thrombosis, systemic embolization; TREATMENT for venous thrombosis and/or pulmonary embolus.HIGH RISK: Target INR is 2.5-3.5 for patients with mechanical heart valves.CBC W/PLT COUNT & AUTO DIFFERENTIAL 2021-12-18 06:56:13* Test Item Value Reference Range Interpretation Comme nts WHITE BLOOD CELL COUNT (BEAK ER) (test code = 775) 5.8 K/ L 4.0-10.0 RED BLOOD CELL COUNT (BEAKER ) (test code = 761) 2.71 M/ L 4.20-5.80 L HEMOGLOBIN (BEAKER) (test co de = 410) 7.3 GM/DL 13.0-16.8 L HEMATOCRIT (BEAKER) (test co de = 411) 22.6 % 36.0-50.0 L MEAN CORPUSCULAR VOLUME (CHERELLE KER) (test code = 753) 83.4 fL 82.0-99.0 MEAN CORPUSCULAR HEMOGLOBIN (BEAKER) (test code = 751) 26.9 pg 27.0-33.0 L MEAN CORPUSCULAR HEMOGLOBIN CONC (BEAKER) (test code = 752) 32.3 GM/DL 32.0-36.0 RED CELL DISTRIBUTION WIDTH (BEAKER) (test code = 412) 15.4 % 12.0-15.0 H PLATELET COUNT (BEAKER) (rudy t code = 756) 86 K/CU MM 150-430 L MEAN PLATELET VOLUME (BEAKER ) (test code = 754) 10.6 fL 6.0-11.5 NUCLEATED RED BLOOD CELLS (B EAKER) (test code = 413) 0 /100 WBC 0-0 NEUTROPHILS RELATIVE PERCENT (BEAKER) (test code = 429) 50 % LYMPHOCYTES RELATIVE PERCENT (BEAKER) (test code = 430) 29 % MONOCYTES RELATIVE PERCENT (BEAKER) (test code = 431) 15 % EOSINOPHILS RELATIVE PERCENT (BEAKER) (test code = 432) 2 % BASOPHILS RELATIVE PERCENT (BEAKER) (test code = 437) 3 % NEUTROPHILS ABSOLUTE COUNT (BEAKER) (test code = 670) 2.89 K/ L 1.80-8.00 LYMPHOCYTES ABSOLUTE COUNT (BEAKER) (test code = 414) 1.71 K/ L 1.48-4.50 MONOCYTES ABSOLUTE COUNT (BE GUZMAN) (test code = 415) 0.89 K/ L 0.00-1.30 EOSINOPHILS ABSOLUTE COUNT (BEAKER) (test code = 416) 0.13 K/ L 0.00-0.50 BASOPHILS ABSOLUTE COUNT (BE GUZMAN) (test code = 417) 0.18 K/ L 0.00-0.20 IMMATURE GRANULOCYTES-RELATI VE PERCENT (BEAKER) (test code = 2801) 0 % 0-0 [id number] 06:47:47* Test Item Value Reference Range Interpretation Comme nts AMMONIA (BEAKER) (test code = 348) 66 mol/L 17-80 [employer] ID - LITOOperator ID - LITOOperator ID - LITOOperator ID - LITOXR FEMUR RIGHT AP & LAT *OW*2019-03-27 10:20:15Exam: X-ray right femur 2 viewsHISTORY: Pain.Location: [id number]:No fracture or dislocation is noted. No osseous lesions seen.IMPRESSION:1. Unremarkable exam. Notes Date/Time Note Provider Source 2023-11-11 21:16:00 [id number]+9dGgzNfVT YsX3jNVnRsY+[id number] 11-10T21:16:00 [facility] ([facility])EMERGENCY PROVIDER REPORTREPORT#:[id number] REPORT STATUS: SignedDATE:11/11/23 TIME: 2115 PATIENT: JIGNA LEI UNIT #: [id number]#: [id number] ROOM/BED:AGE: 58 SEX: M PCP PHYS: No Primary or Family PhysicianSERVICE AUTHOR: Crystal Guevara DO LOCATION: [facility] * ALL edits or amendments must be made on the electronic/computer document * HPI-Abd Pain M 40 and Over GeneralConfirmed Patient YesPatient Type Existing patientInitial Greet Date/Time 11/11/232008 PresentationChief Complaint Abdominal painHx Obtained From Patient, EMSSudden in Onset? NoOnset Occurred ChronicSymptom Duration Waxes and wanes, ChronicProgression since Onset UnchangedCaused by No trauma by historyLocation DiffuseQuality AchingRadiationNo: Does not radiate. Migration/Movement None Free Text HPI NotesFree Text HPI NotesThis is a 58 years old male, with a past medical history significant for some unknown abdominal surgery, who presented to the emergency department the chief complaint of abdominal pain that started sometimes yesterday. Patient does havea history of chronic abdominal pain. He denies any nausea vomiting diarrhea. No fever. No chest pain or shortness of breath. Patient denies any other complaints at this time. Risk-Abd Pain M 40 and Over)( Abdominal Aortic Aneurysm Risk factors reviewed Review of Systems ROS StatementsAll systems rev neg except as marked.Complete sys rev neg except as marked. Basic Review of SystemsBasic ROS EYES: No redness, ENT: No sore throat, HEM: No bleeding/bruising, SKIN: No rash, NEURO: No change MS, NEURO: No focal deficit, PSYCH: NL thought content Past Medical History - AdultStated Complaint ANEMIA, POSS GI BLEEDAllergiesCoded Allergies:No Known Allergies (11/11/23) Calculated Suicide Risk (nurs) No riskSmoking status for patients 13 years old or older: Unknown,if ever smoked Physical Exam Vital SignsVital SignsFirst Documented: Result Date Time Pulse Ox 100 11/10 1914 B/P 140/76 11/10 1914 B/P Mean 97 11/10 1914 O2 Delivery Room air 11/10 1914 Temp 36.7 11/10 1914 Pulse 75 11/10 1914 Resp 18 11/10 1914 Last Documented: Result Date Time Pulse Ox 100 11/10 1914 B/P 140/76 11/10 1914 B/P Mean 97 11/10 1914 O2 Delivery Room air 11/10 1914 Temp 36.7 11/10 1914 Pulse 75 11/10 1914 Resp 11/10 Review of Vital Signs Reviewed Basic Physical ExamBasic PE HEAD: Atraumatic/NC, EYES: PERRL, conj clear, ENT: Membranes moist, NECK: Supple, EXT: No gross abnormality, SKIN: No rashes, warm/dry, NEURO: alert oriented, NEURO: gross movement NL, PSYCH: NL thought content Focused PEGeneral/Const General/Const Awake, Alert, Well appearing, Well developed, Well hydrated, Well nourished, Cooperative, Not toxic appearing Distress/Hydration Distress mild. Resp/Chest Respiratory/Chest Atraumatic, Breath sounds NL, Breath sounds = bilat, No respiratory distress, No rales, No rhonchi, No wheezing, No retractions, No stridor, No chest tenderness, No chest wall deformity, No crepitusCardiovascular Cardiovascular Heart rate NL, Regular rhythm, Heart sounds NLAbdomen/GI Tenderness/Guarding/Rebound Tender diffuse. Negative: Tender flank R, Tender flank L, Phan's sign positive, McBurney's point tender, Guarding voluntary, Guarding involuntary, Rebound localized, Rebound diffuse, Rigid to palpation. MS Back Back Atraumatic, Inspection NL, Full range of motion, Painless range of motion, Non-tender, No midline vertebral tend, No paraspinal tenderness, No muscle spasm, No CVA tenderness Interpretation Diagnostics Lab Results InterpretationConsiderations Independ review imaging, Reviewed prior recordsResultsLaboratory Tests 11/11/232108:[Embedded Image Not Available]Laboratory Tests: 11/10 2108 Chemistry Sodium (137 - 145 MMOL/L) 139 Potassium (3.5 - 5.1 MMOL/L) 3.8 Chloride (98 - 107 MMOL/L) 111 H Carbon Dioxide (22 - 30 MMOL/L) 22 BUN (9 - 20 MG/DL) 13 Creatinine (0.66 - 1.25 MG/DL) 0.60 L Glomerular Filtr Rate > 60 Glucose (74 - 106 MG/DL) 103 Calcium (8.4 - 10.2 MG/DL) 9.1 Total Bilirubin (0.2 - 1.3 MG/DL) 0.8 AST (17 - 59 UNITS/L) 41 ALT (0 - 49 UNITS/L) 23 Total Alk Phosphatase (38 - 126 UNITS/L) 148 H Troponin I (0.012 - 0.033 NG/ML) < 0.012 L Total Protein (6.2 - 7.6 G/DL) 7.2 Albumin (3.5 - 5.0 G/DL) 3.1 L Lipase (23 - 300 UNITS/L) 197 Hematology WBC (3.8 - 9.8 K/MM3) 5.4 RBC (3.95 - 5.67 M/MM3) 2.64 L Hgb (12.4 - 16.7 G/DL) 7.8 L Hct (35.9 - 49.5 %) 24.7 L MCV (81.7 - 96.1 fL) 94 MCH (27.6 - 33.2 pg) 29.5 MCHC (32.9 - 35.5 %) 31.6 L RDW (12.1 - 15.2 %) 14.6 Plt Count (129 - 368 K/MM3) 186 MPV (7.4 - 10.4 fl) 10.2 Neut % (Auto) (43 - 75 %) 51.0 Lymph % (Auto) (14 - 44 %) 28.2 Banks % (Auto) (4 - 13 %) 17.9 H Eos % (Auto) (0 - 6 %) 1.1 Baso % (Auto) (0 - 2 %) 1.1 Neut # (Auto) (2.0 - 7.6 K/mm3) 2.72 Lymph # (Auto) (1.0 - 3.8 K/mm3) 1.51 Banks # (Auto) (0.1 - 0.8 K/mm3) 0.96 H Eos # (Auto) (0.0 - 0.2 K/mm3) 0.06 Baso # (Auto) (0.0 - 0.2 K/mm3) 0.06 Immature Gran % (0.0 - 2.0 %) 0.7 Nucleated RBC % (0 - 1.0 %) 0.0 Nucleated RBCs # (Man) (0.0 - 0.1 K/mm3) 0.00 Urines Urine Color (YELLOW) YELLOW Urine Appearance (CLEAR) CLEAR Urine pH (5.0 - 9.0) 7.0 Ur Specific Sallis (1.003 - 1.030) 1.005 Urine Protein (NEGATIVE MG/DL) 15 Urine Glucose (UA) (NORMAL MG/DL) NORMAL Urine Ketones (NEGATIVE MG/DL) NEGATIVE Urine Blood (NEGATIVE Bladimir/mm3) 25 H Urine Nitrite (NEGATIVE) NEGATIVE Urine Bilirubin (NEGATIVE MG/DL) NEGATIVE Urine Urobilinogen (NORMAL MG/DL) NORMAL Ur Leukocyte Esterase (NEGATIVE /mm3) NEGATIVE Urine RBC (0 - 3 RBC/HPF) 5-10 H Urine WBC (0 - 5 WBC/HPF) 0-3 Ur Epithelial Cells (FEW EPI/HPF) FEW Urine Bacteria (NONE) NONE Recent Impressions:RADIOLOGY - XR CHEST 1V 11/10 2049 Report Impression - Status: SIGNED Entered: 11/11/20232106 IMPRESSION:Cardiac silhouette is enlarged. No evidence of focal consolidation.Impression By: [email or web address] - Jeremias Torrez MDCAT SCAN - CT ABD PELVIS W/CONT 11/100 Report Impression - Status: SIGNED Entered: 11/11/20232343 IMPRESSION: Hepatic cirrhosis with minimal abdominal ascites and perigastricvarices noted near the gastric fundus.Cholelithiasis.No bowel obstruction. Normal appendix. LOCATION: B2 Impression By: 16 - Jayda Murry MD ECG #1 Interpretation ECG Interpretation NoteThe ECG interpretation was done contemporaneously by me. This is an adequate tracing. EKG was done at 7:44 PM. Normal sinus rhythm. Rate of 77. Normal axis. No acute ST-T elevation. No STEMI. No old EKG for comparison at this time. Re-Evaluation MDM )( Re-Evaluation/Progress #1)( Re-Eval Status Improved Tissue Perfusion ReassessmentPatient tissue perfusion reassessment completed. ED CourseMedication(s) OrderedMedication(s) Ordered:Anti-Infective Agents Sig/Margarito Start time Last Medication Dose Route Stop Time Status Admin Ceftriaxone Sodium 1,000 MG X1ED STA 11/11 0015 DC Sodium Chloride 10 ML IV 11/11 0016 Central Nervous System Agents Sig/Margarito Start time Last Medication Dose Route Stop Time Status Admin Morphine Sulfate 2 MG X1ED STA 11/102 DC 11/10 IV 11/10 Diagnostic Agents Sig/Margarito Start time Last Medication Dose Route Stop Time Status Admin Iopamidol 0 .STK-MED ONE 11/10 2254 DC 11/10 IV 2316 Electrolytic, Caloric, And Hernan Sig/Margarito Start time Last Medication Dose Route Stop Time Status Admin Sodium Chloride 1,000 ML X1ED STA 11/102 DC 11/10 IV 11/10 2042 210 Gastrointestinal Drugs Sig/Margarito Start time Last Medication Dose Route Stop Time Status Admin Ondansetron HCl 4 MG X1ED STA 11/10 2041 DC 11/10 IV 11/10 Differential Diagnosis)( Differential Diagnosis Abdominal pain, pancreatitis, gallbladder disease, obstruction, constipation, appendicitis, diverticulitis, UTI, kidney stone. Free Text MDM NotesFree Text MDM NotesPatient remained stable throughout course of treatment. Labs were essentially unremarkable. UA was positive for hematuria. However CAT scan of abdomen pelvis did not show any acute intra-abdominal intrapelvic pathology. Positive gallstones. Will discharge patient home on antibiotics for his cystitis to follow with the PCP. Case discussed with patient. Patient understood and agreed with the management. Patient Discharge Departure Vital Signs/ConditionVital SignsFirst Documented: Result Date Time Pulse Ox 100 11/10 1914 B/P 140/76 11/10 1914 B/P Mean 97 11/10 1914 O2 Delivery Room air 11/10 1914 Temp 36.7 11/10 1914 Pulse 75 11/10 1914 Resp 18 11/10 1914 Last Documented: Result Date Time Pulse Ox 100 11/10 1914 B/P 140/76 11/10 1914 B/P Mean 97 11/10 1914 O2 Delivery Room air 11/10 1914 Temp 36.7 11/10 1914 Pulse 75 11/10 1914 Resp 18 11/10 1914 All vital signs available at the time of this entry have been reviewed. Condition Stable Clinical ImpressionClinical ImpressionPrimary Impression: Abdominal painSecondary Impressions: Cystitis, Gall stoneTime of Impression 0012 Disposition DecisionDischarge )( Discharged to Home Yes )( Time 0013 )( Date 11/12/23 Discharge/Care Plan(Auto) PrescriptionsCurrent Visit ScriptsCEFDINIR (OMNICEF) 300 MG PO Q12H CEFDINIR (OMNICEF) 300 MG PO Q12H #14 CAPS Prescriptions Reviewed Risks, Benefits, Alternative treatmentPatient Instructions Abdominal Pain, ED Biliary Colic W Gallstone Poss, Urinary Tract Infections in Men Discharge NoteI have spoken with the patient and/or caregivers. I have explained the patient'scondition, diagnoses and treatment plan based on the information available to meat this time. I have answered the patient's and/or caregiver's questions and addressed any concerns. The patient and/or caregivers have as good an understanding of the patient's diagnosis, condition and treatment plan as can beexpected at this point. The vital signs have been stable. The patient's condition is stable and appropriate for discharge from the emergency department. The patient will pursue further outpatient evaluation with the primary care physician or other designated or consulting physician as outlined in the discharge instructions. The patient and/or caregivers are agreeable to this planof care and follow-up instructions have been explained in detail. The patient and/or caregivers have received these instructions in written format and have expressed an understanding of the discharge instructions. The patient and/or caregivers are aware that any significant change in condition or worsening of symptoms should prompt an immediate return to this or the closest emergency department or a call to 911. at 0031RPT #:[id number] OF REPORTAdventHealth department jkdsjl6206-66-72U55:16:00Z.[id number] 470AVAvailable for patient rdewZVMOJNWDMNIZPZ6049-61-58V50:32:21 [facility] 2023-[facility] 16:49:14 [id number] wTvz3hmtxavF3mEjtLbbg mEqIdxgf/KMhB27K+c6+VYnbAff9jDPd88860-57- 27T16:49:14 PROGRESS NOTESANCHREKHALUZINGOFACILITY: [facility] #: [id number] Room: [address] [place] [address] #: [id number] : 1965PHYSICIAN: Rory Jackson MDADMISSION DATE: 07/18/2023ATE: 07/19/2023SUBJECTIVE: The patient is status post EGD, which did not showany active bleeding. He has not experienced any bleeding sincehe has been here in the hospital. The patient is toleratingclear liquid diet. He denies any abdominal pain.PHYSICAL EXAMINATION:VITAL SIGNS: Temperature 98 degrees, pulse 86, respiratoryrate 18, blood pressure 142/78.GENERAL: The patient is awake, alert, oriented x3. Appearsolder than stated age.HEENT: Sclerae anicteric, conjunctivae pale, oropharynx clear.CARDIOVASCULAR: Regular rate and rhythm without murmurs,gallops, or rubs.LUNGS: Clear to auscultation bilaterally.ABDOMEN: Soft, nontender, nondistended. Bowel sounds arenormal.EXTREMITIES: No cyanosis, clubbing, or edema.LABORATORY DATA: Hemoglobin 7.2. BUN 11, creatinine 0.75.IMAGING DATA: Abdominal ultrasound-cirrhotic liver, minimalascites, and gallstones.IMPRESSION:1. Alcoholic cirrhosis, complicated by mild ascites.2. Questionable upper GI bleed.3. Small nonbleeding gastric and esophageal varices withoutbleeding.4. Gallstones.RECOMMENDATIONS:1. Discontinue Protonix and Sandostatin drip.2. Advance diet as tolerated.3. Alcohol abstinence recommended.4. Outpatient colonoscopy recommended.NBV/MODLDD: 07/19/2023 16:29:29DT: 07/19/2023 16:49:14Job #: [id number] signed by: RORY JACKSON at 2023-07-19 16:29:29.236TNLsnhewgklieb5534-59-31B63:4 9:[id number]:00:[id number] 8226RORY JACKSONUTVOLXFMZBAPMURAWCEXVST3299-03-32E99:00:1 7 DEBBIEJACQUELINE RORY [facility] 2023-07-18 15:10:56 [id number] 1Ij8keTXK1Y5zAIBo69uz qdqDMo8VNaPqCUBoWpl1pEMFSbpM0/9Wm7428-78- 26T15:10:56 JENNIFER VALENTINOOFACILITY: SLSLRaudel #: [id number] Room: [address] [place] [address] #: [id number] : 1965DATE OF ADMISSION: 3DATE OF CONSULTATION:REQUESTING PHYSICIAN: MALISSA AranaONSULTANT: Rory Jackson MDGastroenterology ConsultationREASON FOR CONSULTATION: Melena.HISTORY OF PRESENT ILLNESS: This is a 57-year-old male withhistory of alcoholic cirrhosis, who presents [facility] after patient states that he was having blacktarry stools for a couple of days. His hemoglobin has droppedand hence he was transferred for higher level of care. Thepatient does have a history of GI bleed from gastric varices.It is unclear when his last upper endoscopy was.Unfortunately, it appears that he does continue to drinkalcohol. The patient is hemodynamically stable and n.p.o.PAST MEDICAL HISTORY:1. Alcoholic cirrhosis.2. History of upper GI bleed.3. Gastric varices.4. Questionable gastroparesis.PAST SURGICAL HISTORY: Upper endoscopy.ALLERGIES: NONE.SOCIAL HISTORY: The patient does smoke cigarettes andmarijuana. He drinks heavily.FAMILY HISTORY: Negative for colon cancer, liver disease, orinflammatory bowel disease.MEDICATIONS: See MAR.REVIEW OF SYSTEMS:CARDIOVASCULAR: No chest pain, shortness of breath, orpalpitation.PULMONARY: No cough, hemoptysis or wheezing.The rest of the 10-point review of systems noncontributory.PHYSICAL EXAMINATION:VITAL SIGNS: Temperature 97.2, pulse 80, respiratory rate 17,blood pressure 130/71, O2 saturation 97%.GENERAL: The patient is awake, alert, oriented x3. No acutedistress.HEENT: Sclerae anicteric, conjunctivae pale, oropharynx clear.CARDIOVASCULAR: Regular rate and rhythm without murmurs,gallops, or rubs.LUNGS: Bibasilar crackles present.ABDOMEN: Soft, nontender, nondistended. Bowel sounds arenormal.EXTREMITIES: No cyanosis, clubbing, or edema.LABORATORY DATA: White count 6.4, hemoglobin 7.9, bermovbwe71. INR 1.57. BUN 12, creatinine 0.73, total bilirubin 1.2.IMPRESSION:1. GI bleed, likely upper based on melena.2. Anemia secondary to GI blood loss.3. Alcoholic cirrhosis.4. History of gastric varices.5. Portal hypertension.RECOMMENDATIONS: The patient is not actively bleeding, but Iwould like to proceed with upper endoscopy nonetheless givendrop in hemoglobin and description of black stools. In themeantime, continue pantoprazole and Sandostatin drips, whichhave already been started. Alcohol abstinence recommended andhe is to join a rehab program upon discharge. Monitor foralcohol withdrawal. I will also check an alpha fetoprotein forhepatoma surveillance as well as an ultrasound.NBV/MODLDD: 07/18/2023 14:48:58DT: 07/18/2023 15:10:56Job #: [id number] signed by: RORY JACKSON at 2023-07-18 14:48:58.335OSVwjytoieqbkk5079-32-96N06:1 0:[id number]:00:[id number] 8226RORY JACKSONFPPFQIIPZTWROXCGXMCIJJF3676-72-32L48:00:1 2 RORY JACKSON [facility] 2022-12-17 07:50:59 [id number]/lBv7x wdEh85Si3HSsLWzNMRbGE JbGVNDV+1IOpBzrDwPhzQNU7e9xZc9mdD0142-32- 27T07:50:59 PROGRESS NOTESJENNIFER MICHELLEOFACILITY: Fay #: [id number] Room: [address] [place] [address] #: [id number] : 1965PHYSICIAN: Rory Jackson MDADMISSION DATE: 3DATE: 12/17/2022SUBJECTIVE: The patient is in restraints, accompanied zwtzb-gh-hzk sitter. He is agitated, anxious, and trying to getout of bed. His eyes are awake and he does respond to somestimuli. No overt signs of bleeding present.PHYSICAL EXAMINATION:VITAL SIGNS: Temperature 97 degrees, pulse 79, respiratoryrate 18, blood pressure 156/81.GENERAL: The patient is agitated, anxious and tremulous. Heis not oriented.HEENT: Sclerae anicteric, conjunctivae pale, oropharynx clear,mucous membranes dry.CARDIOVASCULAR: Tachycardic without murmurs, gallops, or rubs.LUNGS: Clear to auscultation bilaterally.ABDOMEN: Soft, obese, nontender, nondistended. No obviousfluid wave. Bowel sounds are normal.EXTREMITIES: No cyanosis, clubbing, or edema.NECK: No thyromegaly, lymphadenopathy, or jugular venousdistention.LABS: No new labs today.IMPRESSION:1. Alcohol withdrawal.2. Alcoholic cirrhosis arthritis.3. GI bleed.4. Anemia, secondary to GI bleed.RECOMMENDATIONS: Continue treatment of alcohol withdrawal perCIWA protocol. At this point, I am going to discontinueProtonix drip as well and just place patient on twice dailydosing as he has not had any bleeding since he has [facility]. He may need NG tube for feeds if his withdrawaldoes not improve soon. He would benefit from an upperendoscopy at some point, although at this time without anyactive bleeding, it is imperative that we 1st treat hiswithdrawal and then we will proceed accordingly.NBV/MODLDD: 12/17/2022 07:19:53DT: 12/17/2022 07:50:59Job #: [id number] signed by: RORY JACKSNO at 2022-12-17 07:19:53.083WBFhvbkwsgewzm8061-41-38A26:5 0:[id number]:22:[id number] 226RORY JACKSONOQJWEUDFGLJIPEUTLQLQNRK4237-00-65N87:22:2 6 RORY JACKSON [facility] 2022-12-16 21:49:53 [id number] r2V2d+z1uscwQSs2klBLw aafCjWZCeMaLvug7oJHrBwtRgYDfMb8ua2950-66- 26T21:49:53 DIANEANCHREKHA, LUZINGOFACILITY: [facility] #: [id number] Room: [address] [place] [address] #: [id number] : 1965DATE OF ADMISSION: 3DATE OF CONSULTATION:REQUESTING PHYSICIAN: MALISSA AranaONSULTANT: Austin Owenstroenterology Consultation NoteREASON FOR CONSULTATION: Questionable GI bleed.HISTORY OF PRESENT ILLNESS: This is a 57-year-old male withhistory of alcohol abuse as well as history of gastric paresiswho [facility] bleed and altered mental status. The patient iscurrently unable to give any history due to alcohol withdrawal. However, it appears that he was actually admitted 2 years agoafter being transferred from outside hospital with concerns forGI bleed. Initially, another firefighter marine was consulted,but apparently he is out of town and therefore I was consultedon this patient about 2 hours ago. He has been here for about48 hours without any further bleeding reported. He iscurrently getting treatment for alcohol withdrawal per CIWAprotocol. His hemoglobin was 6.9 and he has been transfused 2units of packed rbc's and his hemoglobin is currently 9. Carlos have a history of upper GI bleed secondary to gastricvarices, according to documentation from 2021. No otherhistory is available at this time.PAST MEDICAL HISTORY:1. Alcohol abuse.2. History of upper GI bleed.3. History of gastric varices.PAST SURGICAL HISTORY: Upper endoscopy.ALLERGIES: NONE.SOCIAL HISTORY: The patient does smoke cigarettes. He hasbeen a heavy drinker in the past and also smokes marijuana.FAMILY HISTORY: Negative for colon cancer, liver disease,inflammatory bowel disease.MEDICATIONS: See MAR.REVIEW OF SYSTEMS:Not obtainable.PHYSICAL EXAMINATION:VITAL SIGNS: Temperature 97 degrees, pulse 70, respiratoryrate 18, blood pressure 155/82, O2 saturation 97%.GENERAL: The patient is somewhat tremulous. He is awake,alert, somewhat anxious.HEENT: Sclerae anicteric, conjunctivae pale, oropharynx clear.CARDIOVASCULAR: Tachycardic without murmur, gallops, or rubs.LUNGS: Clear to auscultation bilaterally.ABDOMEN: Soft, nontender, nondistended. Bowel sounds arenormal.EXTREMITIES: No cyanosis, clubbing, or edema.LABORATORY DATA: AST 87, ALT 28, albumin 2.9, total bilirubin2.2. White count 7.8, hemoglobin 9, platelets 72. INR 1.57.IMAGING: Abdominal ultrasound - gallbladder sludge and nodularliver surface. No focal lesions of the liver.IMPRESSION:1. Alcoholic cirrhosis.2. Alcoholic withdrawal.3. Questionable gastrointestinal bleed.4. History of gastric varices.RECOMMENDATION: The patient has not had any bleeding here int hospital over the last 2 days and hemoglobin is stableafter blood transfusion. At this time, we will continuetreatment of alcohol withdrawal per [facility] protocol. Continuemonitoring hemoglobin daily. He obviously does not have avariceal bleed and therefore I am going to discontinue theSandostatin and continue Protonix for now. If at any point heexperiences any active GI bleeding, he will proceed with theemergent EGD. Until then, we will wait for the withdrawalsymptoms to resolve prior to proceeding with EGD. Alcoholabstinence recommended. He needs to join a formalrehabilitation program. He is not a candidate for livertransplant at this time.NBV/MODLDD: 12/16/2022 20:43:36DT: 12/16/2022 21:49:53Job #: [id number] signed by: RORY JACKSON at 2022-12-16 20:43:36.117XYFlhfbiamkdel0382-82-08E80:4 9:[id number]:22:[id number] 226RORY JACKSONECYEELNNNWHZRUDKOQLCGUI0308-18-77B29:22:2 0 RORY JACKSON [facility] 2021-12-27 14:14:33 [id number] RjTLbMi+4F3Clhby3XhD6 7s6hI5RUwxP5uz4w066+39rN/knP9RyJW0214-33- 06T14:14:33 PROGRESS NOTESANCHEZ, DOMINGOFACILITY: [facility] #: [id number] Room: [address] [place] [address] #: [id number] : 1965PHYSICIAN: Kay Alberto, MDADMISSION DATE: 12/18/2021ATE: 12/27/2021UBJECTIVE: The patient is seen and examined at bedside,remains comfortable, in no apparent distress. The patientindicates to me that he would like to go home.REVIEW OF SYSTEMS:He denies any chest pain. No chest discomfort. No nausea. Novomiting.PHYSICAL EXAMINATION:VITAL SIGNS: Upon evaluation, temperature 96.5, pulse of 82,respiratory rate 18, blood pressure 134/74, O2 saturation 96%on room air.GENERAL: In no apparent distress. Appears comfortable.NEUROLOGIC: Alert, oriented x3.NECK: Supple. No carotid bruits.CARDIOVASCULAR: Regular rate and rhythm. S1, S2.LUNGS: Fair entry bilaterally. No wheezing or rhonchi.ABDOMEN: Soft, nontender, nondistended. Positive bowelsounds.EXTREMITIES: No clubbing, no cyanosis, no edema. Positiveperipheral pulses.SKIN: Intact.LABORATORY DATA: Reviewed.ASSESSMENT:1. Acute alcohol intoxication with alcohol withdrawal.2. Toxic metabolic encephalopathy secondary to alcoholintoxication.3. Anemia and thrombocytopenia secondary to EtOH abuse.4. Hypokalemia and hypomagnesium, this has been repleted.PLAN: We will go ahead and repeat all of his labs tomorrowincluding chest x-ray. Otherwise, his labs from today appearto be stable. I have ordered a Case Management evaluation forhome health. My plan is to discharge this patient hometomorrow.SSA/MODLDD: 12/27/2021 13:14:47DT: 12/27/2021 14:14:33Job #: [id number] 14:14:613471-90-43F96:29:[id number] NXS1078VJXDLDEBRA CORRALWXMWALVRSGIZVOPUDOJIDR7563-95-30T54:29:44 ISIAH CORRAL [facility] 2021-12-18 12:33:57 [id number] hIQPsqgioK01WFMf/FNYp 1hdz2MWRZa0UUj/oCM2G5GJVEnYMhEgaP4315-10- 28T12:33:57 JENNIFER VALENTINOOFACILITY: [facility] #: [id number] Room: [address] [place] [address] #: [id number] : 1965DATE OF ADMISSION: 2DATE OF CONSULTATION:REQUESTING PHYSICIAN:COIL WINDER HAND: Austin Vitalstrology Consultation NoteREASON FOR CONSULTATION: Abdominal pain and history of gastricvarices.HISTORY OF PRESENT ILLNESS: Mr. Lei is a 56-year-old maletransferred from another facility with abdominal pain andhistory of gastric varices.I do not have much of the record, but apparently the patienthad gastric varices and also had some nausea, vomiting. He hashad a history of alcohol consumption and also marijuanaconsumption. He drinks a six-pack of beer a day. He also hashad apparently a history of premature dementia. The patientcame in with a low hemoglobin of 6.6. He has been placed onoctreotide. There is no evidence of any ongoing bleeding. Thepatient was intoxicated with an alcohol level of 372.PAST MEDICAL HISTORY: As per chart.SOCIAL/FAMILY HISTORY: Essentially noncontributory.REVIEW OF SYSTEMS:A detailed review otherwise was unremarkable.PHYSICAL EXAMINATION:GENERAL: Revealed a male, who appeared comfortable. He didnot appear in distress.VITAL SIGNS: Stable with a temperature of 98.4, pulse 86,respirations 18, and blood pressure was 133/76.HEENT: No icterus was noted. External ocular movements wereintact. No pharyngeal erythema was noted.COR: Unremarkable.CHEST: Unremarkable.ABDOMEN: Soft. No tenderness noted. No masses were felt.LABORATORY DATA: Remarkable for hematocrit of 22.6 with aplatelet count of 86,000. The INR was 1.57.IMPRESSION:1. History of alcohol consumption.2. Anemia.3. Thrombocytopenia.PLAN: The patient has had a significant history of alcoholconsumption and is at risk for withdrawal. My recommendationwould be to go ahead and advance the diet and likely dischargeas no endoscopic workup is recommended at this time, andfollowup can be arranged as an outpatient. He likely will needanother unit of blood prior to discharge.Thank you for the courtesy of your referral.NM/MODLDD: 12/18/2021 10:37:06DT: 12/18/2021 12:33:57Job #: [id number] 12:33:630299-84-75Q86:48:[id number] JXT7242QNZLUALAYNA INIGUEZKHAAMQYTKAKLTZDBRVKXVEQTPC1527-03-19Q27:4 8:11 ALAYNA INIGUEZ [facility]
[2023-12-25 16:45] LABS: Absolute Basophils 0.1 K/uL (0-0.5); Absolute Eosinophils 0.2 K/uL (0-0.5); Absolute Lymphocytes (CBC) 1.3 K/uL (0.7-4.9); Absolute Monocytes 0.9 K/uL (0.1-1.3); Basophils % 2.3 % (0-1.3); Eosinophils % 2.5 % (0-4.4); Hematocrit 28.4 % (39.6-49.0); Hemoglobin 8.9 g/dL (13.6-17.9); Lymphocytes % 20.6 % (15.3-44.8); MCH 27.2 pg (27.0-35.0); MCHC 31.4 g/dL (32.0-36.0); MCV 86.4 fL (80-100); MPV 7.3 fL (7.6-11.3); Monocytes % 13.9 % (3.3-12.3); Neutrophils % 60.7 % (41.7-73.7); Platelets 459 thou/uL (152-406); RBC Red Blood Cell Count 3.29 M/uL (4.33-5.43); Red Cell Distribution Width 18.7 % (12.1-15.2)
[2023-12-25 17:01] LABS: Albumin 3.6 g/dL (3.4-5.0); Albumin/Globulin Ratio 0.8 (1.1-1.8); Bilirubin Total 1.1 mg/dL (0.2-1.0); Globulin 4.7 g/dL (2.3-3.5); Protein, Total 8.3 g/dL (6.4-8.2)
--- NOTE | 2023-12-25 17:46 | RAD REPORT ---
EXAM DESCRIPTION: CT - Head Brain Wo Cont - 12/25/2023 4:12 pm CLINICAL HISTORY: CONFUSED COMPARISON: Head Brain Wo Cont dated 12/09/2023; Head angio dated 09/16/2023 TECHNIQUE: Noncontrast head CT images were obtained without IV contrast. Multiplanar reformats were generated and reviewed. All CT scans are performed using dose optimization technique as appropriate and may include automated exposure control or mA/KV adjustment according to patient size. FINDINGS: No intracranial hemorrhage, mass, or edema. Midline structures are unremarkable. Normal ventricular caliber for age. Montiel-white matter differentiation is preserved, without evidence of acute infarct. No abnormal extra- axial fluid collections. Mastoid air cells and visualized portions of the paranasal sinuses are clear. No acute bony findings. IMPRESSION: No evidence of an acute intracranial process.
[2023-12-25 17:56] LABS: Specific Gravity 1.021 (1.005-1.030); Urine Bilirubin NEGATIVE (Negative); Urine Blood Negative (Negative); Urine Clarity Clear (Clear); Urine Color Yellow (Yellow); Urine Glucose NEGATIVE (Negative); Urine Ketones NEGATIVE (Negative); Urine Microscopic Reflex YN NO UMIC; Urine Nitrite NEGATIVE (Negative); Urine Protein NEGATIVE (Negative); Urine Urobilinogen 1+ (Normal)
--- NOTE | 2023-12-25 18:22 | ER ---
Nurse's Notes [facility] Name: Fan Lei Jr Age: 58 yrs Sex: Male : 1965 Arrival Date: 12/25/2023 Time: 14:34 Bed 7 Private MD: Diagnosis: Encephalopathy, unspecified;Alcoholic cirrhosis of liver Presentation: 12/24 15:07 Chief complaint: PER SISTER "HE NEEDS PLACEMENT, HE WAS RELEASED 5 DAYS AGO. I CAN'T bp CONTROL HIM ANYMORE.". Coronavirus screen: At this time, the client does not indicate any symptoms associated with coronavirus-19. Ebola Screen: No symptoms or risks identified at this time. Initial Sepsis Screen: Does the patient meet any 2 criteria? No. Patient's initial sepsis screen is negative. Does the patient have a suspected source of infection? No. Patient's initial sepsis screen is negative. Risk Assessment: Do you want to hurt yourself or someone else? Patient reports no desire to harm self or others. Note S/S 4 DAYS. Onset of symptoms is unknown. 15:07 Method Of Arrival: Wheelchair bp 15:07 Acuity: KITA 2 bp Triage Assessment: 15:08 General: Appears unkempt, Behavior is agitated, anxious. Pain: Unable to use pain bp scale. Does not appear to understand pain scale. Neuro: Level of Consciousness is awake, confused, Oriented to none. Historical: - Allergies: 15:07 No Known Allergies; bp - PMHx: 15:07 Alcohol dependence; cirrhosis of liver; Congestive heart failure; Gastroesophageal bp reflux disease; GI Bleed; Seizure; - Immunization history:: Adult Immunizations up to date. - Infectious Disease History:: Denies. - Social history:: Smoking status: unknown. Screenin:20 [facility] ED Fall Risk Assessment (Adult) History of falling in the last 3 months, rs5 including since admission No falls in past 3 months (0 pts) Confusion or Disorientation Yes (5 pts) Intoxicated or Sedated No (0 pts) Impaired Gait Yes (1 pt) Mobility Assist Device Used Yes (1 pt) Altered Elimination No (0 pt) Score/Fall Risk Level 3 or more points = High Risk Maintained a safe environment, Educated pt \\T\\ family on fall prevention, incl call for assistance when getting out of bed, Provided non-skid footwear. Abuse screen: Denies threats or abuse. Nutritional screening: No deficits noted. Tuberculosis screening: No symptoms or risk factors identified. Assessment: 16:20 Reassessment: pt arrived in room. rs5 16:22 General: Appears in no apparent distress. comfortable, Behavior is calm, cooperative. rs5 Pain: Denies pain. Neuro: Level of Consciousness is awake, alert, obeys commands, Oriented to person. Cardiovascular: Patient's skin is warm and dry. Rhythm is regular. Respiratory: Airway is patent Respiratory effort is even, unlabored, Respiratory pattern is regular, symmetrical. GI: Abdomen is round non-distended, Abd is soft and non tender X 4 quads. : No signs and/or symptoms were reported regarding the genitourinary system. EENT: No signs and/or symptoms were reported regarding the EENT system. Derm: Skin is intact, Skin is dry, Skin is normal, Skin temperature is warm. Musculoskeletal: Range of motion: intact in all extremities. 16:23 Reassessment: daughter at bedside, daughter states "He's been hallucinating, talking to rs5 people who aren't there, he gets a bit aggressive sometimes not wanting to do what we tell him to do, and wanting to get up and leave". 17:32 Reassessment: Patient and/or family updated on plan of care and expected duration. Pain rs5 level reassessed. Patient is alert, oriented x 3, equal unlabored respirations, skin warm/dry/pink. 19:26 Reassessment: Patient appears in no apparent distress at this time. No changes from vc1 previously documented assessment. Patient and/or family updated on plan of care and expected duration. Pain level reassessed. Vital Signs: 15:07 BP 122 / 72; Pulse 82; Resp 16; Temp 98; Pulse Ox 97% ; bp 17:59 BP 126 / 78; Pulse 77; Resp 18; Pulse Ox 99% on R/A; rs5 20:58 BP 158 / 77; Pulse 67; Resp 17; Temp 99; Pulse Ox 98% ; vc1 ED Course: 14:39 Patient arrived in ED. mg5 15:07 Arm band placed on. bp 15:08 Jaqui Butterfield MD is Attending Physician. gb1 15:08 Triage completed. bp 16:10 Guerrier, Andrae, RN is Primary Nurse. rs5 16:14 CT Head Brain wo Cont In Process Unspecified. EDMS 16:22 Patient has correct armband on for positive identification. Placed in gown. Bed in low rs5 position. Call light in reach. Side rails up X2. 16:30 Provided Education on: call light. Client placed on continuous cardiac and pulse ko1 oximetry monitoring. NIBP monitoring applied. program proposals coordinator on. Door closed. Noise minimized. Lights dimmed. Warm blanket given. Pillow given. 16:42 CBC with Diff Sent. em1 16:42 CMP Sent. em1 16:42 Lipase Sent. em1 16:42 Initial lab(s) drawn, by ca, sent to lab. Inserted saline lock: 22 gauge in left wrist, em1 using aseptic technique. Blood collected. 17:18 Chest Single View XRAY In Process Unspecified. EDMS 18:00 No provider procedures requiring assistance completed. rs5 18:21 Chyna Dixon MD is Hospitalizing Provider. gb1 19:34 [facility] [phone]. rv1 22:28 Patient admitted, IV remains in place. vc1 Administered Medications: No medications were administered Medication: 18:00 VIS not applicable for this client. rs5 Outcome: 18:22 Decision to Hospitalize by Provider. gb1 22:28 Admitted to Med/surg accompanied by nurse, via stretcher, room 204, vc1 22:28 Condition: good 22:28 Instructed on the need for admit, 22:29 Patient left the ED. vc1 Signatures: Dispatcher [employer] EDTX Sudhakar Zimmerman em1 Lizandro Summers, RN RN bp Shira Nunez RN RN vc1 Brit Hollis, KYRA RN Radha Torres rv1 Andrae Guerrier, KYRA nicole5 Helga Li 5 Jaqui Butterfield MD MD gb1
--- NOTE | 2023-12-25 18:22 | EDPHYS ---
Physician Documentation [facility] Name: Fan Lei Jr Age: 58 yrs Sex: Male : 1965 Arrival Date: 12/25/2023 Time: 14:34 Bed 7 Private MD: ED Physician Jaqui Butterfield HPI: 12/24 18:23 This 58 yrs old Male presents to ER via Wheelchair with complaints of Fall gb1 Injury, Back Pain, Memory Loss, Confusion, Seeing People. 16:51 58-year-old male with limited history the patient has dementia and he is the primary gb1 history provider. He is brought by his sister who states that he has been walking through screens and destroying outside Gardens and then going AWOL where they have to call PD to find him. He has history of alcohol induced dementia, cirrhosis of the liver congestive heart failure and GERD. Patient is alert and oriented x 1.. Historical: - Allergies: 15:07 No Known Allergies; bp - PMHx: 15:07 Alcohol dependence; cirrhosis of liver; Congestive heart failure; Gastroesophageal bp reflux disease; GI Bleed; Seizure; - Immunization history:: Adult Immunizations up to date. - Infectious Disease History:: Denies. - Social history:: Smoking status: unknown. Exam: 16:51 Constitutional: Patient appears confused as he has a history of dementia, however he gb1 is well nourished patient who is awake, alert, and in no acute distress. Head/Face: Normocephalic, atraumatic. Eyes: Pupils equal round and reactive to light, extra-ocular motions intact. Lids and lashes normal. Conjunctiva and sclera are non-icteric and not injected. Cornea within normal limits. Periorbital areas with no swelling, redness, or edema. ENT: Nares patent. No nasal discharge, no septal abnormalities noted. Tympanic membranes are normal and external auditory canals are clear. Oropharynx with no redness, swelling, or masses, exudates, or evidence of obstruction, uvula midline. Mucous membranes moist. Neck: Trachea midline, no thyromegaly or masses palpated, and no cervical lymphadenopathy. Supple, full range of motion without nuchal rigidity, or vertebral point tenderness. No Meningismus. Chest/axilla: Normal chest wall appearance and motion. Nontender with no deformity. No lesions are appreciated. Cardiovascular: Regular rate and rhythm with a normal S1 and S2. No gallops, murmurs, or rubs. Normal PMI, no JVD. No pulse deficits. Respiratory: Lungs have equal breath sounds bilaterally, clear to auscultation and percussion. No rales, rhonchi or wheezes noted. No increased work of breathing, no retractions or nasal flaring. Abdomen/GI: Soft, non-tender, with normal bowel sounds. No distension or tympany. No guarding or rebound. No evidence of tenderness throughout. Back: No spinal tenderness. No costovertebral tenderness. Full range of motion. Skin: Warm, dry with normal turgor. Normal color with no rashes, no lesions, and no evidence of cellulitis. MS/ Extremity: Pulses equal, no cyanosis. Neurovascular intact. Full, normal range of motion. Vital Signs: 15:07 BP 122 / 72; Pulse 82; Resp 16; Temp 98; Pulse Ox 97% ; bp 17:59 BP 126 / 78; Pulse 77; Resp 18; Pulse Ox 99% on R/A; rs5 20:58 BP 158 / 77; Pulse 67; Resp 17; Temp 99; Pulse Ox 98% ; vc1 MDM: 15:08 Patient medically screened. gb1 16:51 Differential diagnosis: closed head injury, contusion, multiple trauma, Subdural gb1 hematoma, pneumonia, sepsis, hepatic encephalopathy, decompensated cirrhosis. Data reviewed: vital signs, nurses notes. 18:21 ED course: 58-year-old male with history of alcoholic cirrhosis here with altered gb1 mental status likely secondary to hepatic encephalopathy. Patient will be admitted to the inpatient hospitalist service. CT brain is negative for subdural hematoma or intracranial abscess or subarachnoid hemorrhage. I discussed the case with the admitting hospitalist and he does agree to accept. Patient will need placement for disposition home due to members being uncomfortable caring for him at baseline. 12/24 15:54 Order name: CBC with Diff; Complete Time: 17:51 gb1 12/24 15:54 Order name: CMP; Complete Time: 17:51 gb1 12/24 15:54 Order name: Lipase; Complete Time: 17:51 gb1 12/24 15:54 Order name: Urinalysis w/ reflexes; Complete Time: 17:56 gb1 06/03 16:50 Order name: Ethanol; Complete Time: 17:51 gb1 12/24 20:23 Order name: Ammonia EDMS 12/24 20:23 Order name: CBC with Automated Diff EDMS 12/24 20:23 Order name: CBC with Automated Diff EDMS 12/24 20:23 Order name: Comprehensive Metabolic Panel EDMS 12/24 20:23 Order name: Comprehensive Metabolic Panel EDMS 12/24 15:54 Order name: CT Head Brain wo Cont; Complete Time: 17:51 gb1 12/24 16:51 Order name: Chest Single View XRAY; Complete Time: 19:13 gb1 12/24 15:54 Order name: IV Saline Lock; Complete Time: 16:42 gb1 12/24 15:54 Order name: Labs collected and sent; Complete Time: 16:42 gb1 Administered Medications: No medications were administered Disposition Summary: 12/25/23 18:22 Hospitalization Ordered Notes: Hospitalization Status: Inpatient Admission gb1 Provider: Chyna Dixon [facility] Location: Telemetry/MedSurg (Inpatient) gb1 Condition: Fair gb1 Problem: an acute exacerbation gb1 Symptoms: have worsened gb1 Bed/Room Type: Standard 1 Room Assignment: 204(12/25/23 20:44) rv1 Diagnosis - Encephalopathy, unspecified gb1 - Alcoholic cirrhosis of liver gb1 Forms: - Medication Reconciliation Form gb1 - SBAR form gb1 - Leadership Thank You Letter gb1 Signatures: Dispatcher [employer] EDLizandro Garcia, RN RN Radha Duron rv1 Jaqui Butterfield MD MD gb1 Corrections: (The following items were deleted from the chart) 15:54 15:54 CBC+H.LAB.BRZ ordered. EDMS EDMS 15:55 15:54 COMPREHENSIVE METABOLIC PANEL+C.LAB.BRZ ordered. EDMS EDMS 15:55 15:54 LIPASE+C.LAB.BRZ ordered. EDMS EDMS 15:55 15:54 Urinalysis+U.LAB.BRZ ordered. EDMS EDMS 20:44 18:22 gb1 rv1
--- NOTE | 2023-12-25 19:02 | RAD REPORT ---
EXAM DESCRIPTION: RADChest Single View12/25/2023 5:16 pm CLINICAL HISTORY: COUGH COMPARISON: Chest Single View dated 12/09/2023; Chest Single View dated 12/09/2023; Chest Single View dated 09/15/2023; Chest Single View dated 07/27/2023 TECHNIQUE: Portable AP view of the chest. FINDINGS: Mild patchy predominantly reticular left basilar airspace opacities. No pneumothorax or e ffusion. The cardiomediastinal contours are unremarkable. IMPRESSION: Mild patchy left basilar airspace opacities, may represent very early or atypical pneumo murphy.
--- NOTE | 2023-12-25 20:17 | P.HP ---
Certification for Inpatient Patient admitted to: Observation With expected LOS: >2 Midnights Patient will require the following post-hospital care: None Practitioner: I am a practitioner with admitting privileges, knowledge of patient current condition, hospital course, and medical plan of care. Services: Services provided to patient in accordance with Admission requirements found in Title 42 Section 412.3 of the Code of Federal Regulations Patient History Date of Service: 12/25/23 Reason for admission: Change in mental status History of Present Illness: 58-year-old with history of alcohol related dementia, liver cirrhosis, GERD, who presented after being brought in by sister because of being more confused. Sister reportedly states patient has been going out of the house AWOL and being hard to find. As per ER team, sister expressed difficulty with managing patient at home. At the time of evaluation patient is conversant. He states he feels more lethargic and weak than usual. But he states his symptoms have been improving since being in the ED for the last 2 hours. He denies any nausea vomiting or headache. He states he lives with his sister, and that she manages medications. He states he has been taking all his meds. He denies any diarrhea or vomiting. He denies any cough. He denies any recent alcohol intake Attempt made to reach family On arrival in the ED head CT shows no acute intracranial pathology. Chest x-ray shows small LE pneumonia on the left base, laboratory workup was unremarkable. Ammonia level not yet obtained Allergies No Known Allergies Allergy (Unverified 01/30/23 22:13) Home Medications: Aspirin Chewable [Aspirin Chewable*] 81 mg PO DAILY #30 tab.chew 02/04/23 Atorvastatin Calcium [Lipitor] 40 mg PO BEDTIME #30 tab 02/04/23 Lactulose [Cephulac*] 30 ml PO Q12HR #2000 ml 02/04/23 Metoprolol Tartrate [Lopressor*] 25 mg PO BID 6AM 6PM #60 tab 02/04/23 Sucralfate [Carafate*] 1 gm PO ACHS #120 tab 02/04/23 chlordiazePOXIDE HCl [Chlordiazepoxide HCl] 20 mg PO TID #70 cap 02/04/23 Lactulose [Cephulac*] 30 ml PO BID 30 Days #450 ml 07/29/23 - Past Medical/Surgical History Diabetic: No -: cirrhosis of liver -: CHF -: Gerd -: GI bleed -: alcohol dependence -: EtOH abuse -: Cirrhosis of liver -: Congestive heart failure -: GERD -: GI bleeding - Social History Smoking Status: Never smoker Alcohol use: No CD- Drugs: No Caffeine use: No Place of Residence: Home Review of Systems 10-point ROS is otherwise unremarkable Neurological: Weakness Physical Examination - Physical Exam General: Alert, In no apparent distress, Oriented x2, Other (thin built middle aged m, calm , ) HEENT: Atraumatic, Normocephalic Neck: Supple, 2+ carotid pulse no bruit Respiratory: Clear to auscultation bilaterally, Normal air movement Cardiovascular: Normal pulses, Regular rate/rhythm, Normal S1 S2 Gastrointestinal: Normal bowel sounds, Soft and benign, Non-distended Musculoskeletal: No clubbing, No swelling Neurological: Normal gait, Normal speech, Normal strength at 5/5 x4 extr, Cranial nerves 3-12 intact - Studies Laboratory Data (last 24 hrs) 12/25/23 12/25/23 16:30 16:30 WBC 6.50 Hgb 8.9 L Hct 28.4 L Plt Count 459 H Sodium 136 Potassium 4.0 BUN 11 Creatinine 1.00 Glucose 100 Total Bilirubin 1.1 H AST 51 H ALT 27 Alkaline Phosphatase 76 Lipase 33 Assessment and Plan - Plan Impression Presumed hepatic encephalopathyobtain ammonia level Resume home meds Left lobe pneumoniaMay be because of weakness Start empirical Rocephin WBC within normal range GERDresume PPI DVT prophylaxissubcutaneous heparin Advance directivefull code Dispositionwill need case management to reach out to family to discuss plan for discharge versus SNF. - Advance Directives Does patient have a Living Will: No Does patient have a Durable POA for Healthcare: No Time Spent Managing Pts Care (In Minutes): 65
[2023-12-25] MEDS ORDERED: ONDANSETRON 4 MG/2 ML VIAL IV PRN (20:18)
[2023-12-25] MEDS ORDERED: ALBUTEROL 2.5 MG/3 ML NEB SOL NEB PRN (20:18)
[2023-12-25] MEDS ORDERED: MORPHINE 2 MG/ML SYR IV PRN (20:18)
[2023-12-25] MEDS: LACTULOSE 20 GM/30 ML UCUP PO SCH (23:04)
[2023-12-25] MEDS: D5 0.9 NS 1,000 ML IV SCH (23:04)
[2023-12-25] MEDS: CEFTRIAXONE 1,000 MG in NA CHLORIDE 0.9% 50 ML IVPB SCH (23:04)
[2023-12-26] MEDS: WATER FOR INJ,STERILE 10 ML IM PRN (00:35)
[2023-12-26] MEDS: ZIPRASIDONE MESYLA 20 MG/VIAL IM ONE ×3 (00:35→21:18)
[2023-12-26 07:07] LABS: Absolute Basophils 0.1 K/uL (0-0.5); Absolute Eosinophils 0.3 K/uL (0-0.5); Absolute Lymphocytes (CBC) 1.4 K/uL (0.7-4.9); Absolute Monocytes 0.9 K/uL (0.1-1.3); Absolute Neutrophil 2.9 K/uL (1.8-8.0); Basophils % 2.4 % (0-1.3); Eosinophils % 5.9 % (0-4.4); Hematocrit 27.4 % (39.6-49.0); Lymphocytes % 25.7 % (15.3-44.8); MCH 28.2 pg (27.0-35.0); MCHC 32.8 g/dL (32.0-36.0); MCV 85.9 fL (80-100); MPV 7.4 fL (7.6-11.3); Monocytes % 15.1 % (3.3-12.3); Neutrophils % 50.9 % (41.7-73.7); Nucleated Red Blood Cells % 0.2 % (0-0); Platelets 474 thou/uL (152-406); RBC Red Blood Cell Count 3.19 M/uL (4.33-5.43); Red Cell Distribution Width 18.4 % (12.1-15.2)
[2023-12-26 07:26] LABS: Albumin 3.2 g/dL (3.4-5.0); Albumin/Globulin Ratio 0.7 (1.1-1.8); Anion Gap 9.6 mEq/L (5.0-15.0); Bilirubin Total 0.9 mg/dL (0.2-1.0); Globulin 4.4 g/dL (2.3-3.5); Potassium 3.6 mEq/L (3.5-5.1); Protein, Total 7.6 g/dL (6.4-8.2)
--- NOTE | 2023-12-26 07:28 | P.PN ---
Date of Service: 12/26/23 Subjective: Doesn't recall why hes hospitalized. oriented to self/place. States year is 1993 reports last alcoholic drink was day of admission before coming to ER; however he seems confused so unsure how accurate Intermittent agitation overnight 2 reported BM overnight after lactulose ROS: 10 point ROS as noted above, otherwise negative Physical Exam: GEN: Alert, oriented x1 (self), confused HEENT: Normal conjunctiva, sclera anicteric CV: Regular rate and rhythm, no edema Pulm: Nonlabored respirations on room air, clear bilaterally ABD: Soft, nontender, nondistended Neuro: Normal speech, moves extremities vitals reviewed Problem List: Acute Encephalopathy, suspect hepatic encephalopathy Alcoholic liver cirrhosis hx Alcohol abuse Left basilar opacities chronic CHF GERD Seizure disorder Dementia Acute Encephalopathy, suspect hepatic encephalopathy Alcoholic liver cirrhosis hx Alcohol abuse Family reports patient has been more confused, lethargic, weak recently at home. No nausea/vomiting/diarrhea/cough patient reports last alcoholic drink was day of admission before coming to ER. Reports compliance with home medications - however is confused and only oriented to self at this time unreliable history at this time recently admitted to [facility] for ~2weeks, discharged ~1 week ago - hospitalized for status epilepticus / DTs, required vent support, and dc'd on keppra 2000mg bid, and vimpat CT head (12/24): negative ammonia mildly elevated 57 home lactulose increased to TID from BID (12/25) continue IV fluids continue xifaxan 2 reported BM overnight after lactulose Left basilar opacities CXR (12/24): mild patchy basilar airspace opacities. ?possible early or atypical pneumonia continue empiric rocephin (12/24-) afebrile, no leukocytosis PRN nebs chronic CHF GERD confirm home meds, restart as appropriate Seizure disorder resume home keppra, vimpat check keppra levels neuro consult Dementia Family reports increased difficulty in managing patient at home - requesting placement. Was scheduled to see his psychiatrist this week in [place] for worsening dementia. confirm home meds, restart as appropriate continue supportive care. Code: Full Dispo: ?SNF ss/cm consulted to assist with placement
[2023-12-26] MEDS: LACTULOSE 20 GM/30 ML UCUP PO SCH (09:00)
[2023-12-26] MEDS ORDERED: levETIRAcetam 500 MG TAB PO SCH (09:00)
[2023-12-26] MEDS: THIAMINE HCL 100 MG TABLET PO SCH (13:24)
[2023-12-26] MEDS: levETIRAcetam 500 MG TAB PO SCH (13:25)
[2023-12-26] MEDS: LACOSAMIDE 50 MG TABLET PO SCH (13:25)
[2023-12-26] MEDS: Rifaximin 550 MG Tab PO SCH (13:26)
[2023-12-26] MEDS: NEPRO SHAKE 237 ML CAN PO SCH (15:42)
[2023-12-26] MEDS ORDERED: WATER FOR INJ,STERILE 10 ML IM PRN (20:40)
[2023-12-26] MEDS: DOXAZOSIN 2 MG TAB PO SCH (21:00)
[2023-12-27 06:17] LABS: Absolute Basophils 0.1 K/uL (0-0.5); Absolute Eosinophils 0.3 K/uL (0-0.5); Absolute Lymphocytes (CBC) 1.1 K/uL (0.7-4.9); Absolute Monocytes 0.7 K/uL (0.1-1.3); Hematocrit 29.6 % (39.6-49.0); Hemoglobin 9.8 g/dL (13.6-17.9); Lymphocytes % 20.9 % (15.3-44.8); MCH 28.6 pg (27.0-35.0); MCHC 33.1 g/dL (32.0-36.0); MCV 86.5 fL (80-100); MPV 7.3 fL (7.6-11.3); Monocytes % 14.1 % (3.3-12.3); Nucleated Red Blood Cells % 0.1 % (0-0); Platelets 514 thou/uL (152-406); RBC Red Blood Cell Count 3.42 M/uL (4.33-5.43); Red Cell Distribution Width 18.4 % (12.1-15.2)
[2023-12-27 06:42] LABS: Albumin 3.4 g/dL (3.4-5.0); Albumin/Globulin Ratio 0.7 (1.1-1.8); Anion Gap 8.5 mEq/L (5.0-15.0); Bilirubin Total 0.9 mg/dL (0.2-1.0); Globulin 4.6 g/dL (2.3-3.5); Magnesium 1.5 mg/dL (1.6-2.4); Potassium 3.5 mEq/L (3.5-5.1)
--- NOTE | 2023-12-27 09:24 | P.PN ---
Date of Service: 12/27/23 Subjective: remains confused. oriented to self only Doesn't recall events of the past few weeks 3 loose BM throughout the day yesterday after given lactulose patients sister guarantees no ETOH use in several months - states she brings him to work or other family members are directly supervising ROS: 10 point ROS is negative, however limited due to patient's mentation/confusion Physical Exam: GEN: Alert, oriented x1 (self), confused HEENT: Normal conjunctiva, sclera anicteric CV: Regular rate and rhythm, no edema Pulm: Nonlabored respirations on room air, clear bilaterally ABD: Soft, nontender, nondistended Neuro: Normal speech, moves extremities vitals reviewed Problem List: Acute Encephalopathy, suspect hepatic encephalopathy Alcoholic liver cirrhosis with Korsakoff syndrome hx Alcohol dependence Left basilar opacities chronic CHF GERD Seizure disorder Dementia Acute Encephalopathy, suspect hepatic encephalopathy Alcoholic liver cirrhosis with Korsakoff syndrome hx Alcohol abuse Family reports patient has been more confused, lethargic, weak recently at home. No nausea/vomiting/diarrhea/cough Spoke to patient's sister - reports with 100% certainty there has been no ETOH use in several months. Reports compliance with home medications. recently admitted to [facility] for ~2weeks, discharged ~1 week ago - hospitalized for status epilepticus / DTs, required vent support, and dc'd on keppra 2000mg bid, and vimpat CT head (12/24): negative ammonia mildly elevated 57, improved; having BMs home lactulose increased to TID from BID (12/25) dc ivf's eating now continue xifaxan 3 loose BM throughout the day yesterday after given lactulose Left basilar opacities CXR (12/24): mild patchy basilar airspace opacities. ?possible early or atypical pneumonia continue empiric rocephin (12/24-) afebrile, no leukocytosis PRN nebs chronic CHF GERD confirm home meds, restart as appropriate Seizure disorder resume home keppra, vimpat check keppra levels neuro consult Dementia Family reports increased difficulty in managing patient at home - requesting placement. Was scheduled to see his psychiatrist this week in [place] for worsening dementia. confirm home meds, restart as appropriate continue supportive care. Code: DNR Dispo: ?SNF ss/cm consulted to assist with placement confirmed code status changed to DNR after discussion with family at bedside 12/26
[2023-12-27] MEDS ORDERED: ALBUTEROL 2.5 MG/3 ML NEB SOL NEB PRN (11:46)
[2023-12-27] MEDS ORDERED: WATER FOR INJ,STERILE 10 ML IM PRN (14:21)
[2023-12-27] MEDS: NICOTINE 14 MG/PAT TD SCH (14:35)
[2023-12-27] MEDS: ZIPRASIDONE MESYLA 20 MG/VIAL IM ONE (14:36)
[2023-12-27] MEDS: LORAZEPAM 1 MG TABLET PO ONE (23:50)
[2023-12-28] MEDS: ZIPRASIDONE MESYLA 20 MG/VIAL IM ONE ×2 (04:16→04:23)
[2023-12-28] MEDS: WATER FOR INJ,STERILE 10 ML ONE (04:16)
[2023-12-28 06:11] LABS: Absolute Basophils 0.1 K/uL (0-0.5); Absolute Eosinophils 0.2 K/uL (0-0.5); Absolute Lymphocytes (CBC) 0.8 K/uL (0.7-4.9); Absolute Monocytes 0.9 K/uL (0.1-1.3); Absolute Neutrophil 4.2 K/uL (1.8-8.0); Basophils % 1.3 % (0-1.3); Eosinophils % 3.6 % (0-4.4); Hematocrit 26.3 % (39.6-49.0); Hemoglobin 8.6 g/dL (13.6-17.9); Lymphocytes % 13.5 % (15.3-44.8); MCH 28.2 pg (27.0-35.0); MCHC 32.8 g/dL (32.0-36.0); MCV 86.1 fL (80-100); MPV 7.6 fL (7.6-11.3); Monocytes % 13.9 % (3.3-12.3); Neutrophils % 67.7 % (41.7-73.7); Nucleated Red Blood Cells % 0.1 % (0-0); Platelets 427 thou/uL (152-406); RBC Red Blood Cell Count 3.06 M/uL (4.33-5.43); Red Cell Distribution Width 18.5 % (12.1-15.2)
[2023-12-28 06:23] LABS: Anion Gap 7.6 mEq/L (5.0-15.0); Potassium 3.6 mEq/L (3.5-5.1)
[2023-12-28 06:24] LABS: Albumin 2.9 g/dL (3.4-5.0); Albumin/Globulin Ratio 0.7 (1.1-1.8); Bilirubin Total 0.5 mg/dL (0.2-1.0); Globulin 3.9 g/dL (2.3-3.5); Magnesium 1.6 mg/dL (1.6-2.4); Protein, Total 6.8 g/dL (6.4-8.2)
[2023-12-28 09:50] VITALS: O2SAT 99
--- NOTE | 2023-12-28 11:02 | P.PN ---
Date of Service: 12/28/23 Subjective: remains confused. doesn't recall recent events. oriented to self only - which is close to baseline per sister some reported agitation overnight. appears more calm / less agitated this morning no reported seizures 1 BM yesterday somewhat frustrated not being able to go home ROS: 10 point ROS is negative, however limited due to patient's memory Physical Exam: GEN: Alert, oriented x1 (self), confused HEENT: Normal conjunctiva, sclera anicteric CV: Regular rate and rhythm, no edema Pulm: Nonlabored respirations on room air, clear bilaterally ABD: Soft, nontender, nondistended Neuro: Normal speech, moves extremities vitals reviewed Problem List: Acute Encephalopathy, suspect hepatic encephalopathy Alcoholic liver cirrhosis with Korsakoff syndrome hx Alcohol dependence Left basilar opacities chronic CHF GERD Seizure disorder Dementia Acute Encephalopathy, suspect hepatic encephalopathy Alcoholic liver cirrhosis with Korsakoff syndrome hx Alcohol abuse Family reports patient has been more confused, lethargic, weak recently at home since discharge from [facility] 1 week prior. No nausea/vomiting/diarrhea/cough Spoke to patient's sister - reports with 100% certainty there has been no ETOH use in several months. Reports compliance with home medications. recently admitted to [facility] for ~2weeks, discharged ~1 week ago - hospitalized for status epilepticus / DTs, required vent support, and dc'd on keppra 2000mg bid, and vimpat CT head (12/24): negative ammonia mildly elevated 57, improved; having BMs home lactulose increased to TID from BID (12/25) continue xifaxan seems to be close to baseline; suspect further progression of chronic issues Left basilar opacities CXR (12/24): mild patchy basilar airspace opacities. ?possible early or atypical pneumonia continue empiric rocephin (12/24-) afebrile, no leukocytosis PRN nebs chronic CHF GERD confirm home meds, restart as appropriate Seizure disorder resume home keppra, vimpat check keppra levels neuro consult Dementia Family reports increased difficulty in managing patient at home - requesting placement. Was scheduled to see his psychiatrist this week in [place] for worsening dementia. however sister said may not have psychiatrist at [place] any more no psych adult basic education manager here at this time/ this week most delirium medications carry risk of lowering seizure threshold. He was prescribed risperdal prior to [facility] / seizure hospitalization, but unsure if was new prescription or not. ?risk of lowering seizure threshold. confirm home meds, restarted continue supportive care. Code: DNR Dispo: SNF - pending auth ss/cm consulted to assist with placement confirmed code status changed to DNR after discussion with family at bedside 12/26
[2023-12-28] MEDS ORDERED: WATER FOR INJ,STERILE 10 ML IM PRN ×2 (12:26→20:40)
[2023-12-28] MEDS: ZIPRASIDONE MESYLA 20 MG/VIAL IM PRN ×2 (13:35→21:19)
[2023-12-28] MEDS: DONEPEZIL HCL 5 MG TAB PO SCH (19:50)
[2023-12-28] MEDS: FOLIC ACID 1 MG TABLET PO SCH (19:50)
[2023-12-28 23:15] VITALS: BMI 22.4
[2023-12-29 04:03] VITALS: BP 156/78; TEMP 98.2
[2023-12-29 07:17] LABS: Hematocrit 29.7 % (39.6-49.0); Hemoglobin 9.7 g/dL (13.6-17.9); MCHC 32.7 g/dL (32.0-36.0); MCV 85.5 fL (80-100); MPV 7.5 fL (7.6-11.3); Platelets 467 thou/uL (152-406); RBC Red Blood Cell Count 3.48 M/uL (4.33-5.43); Red Cell Distribution Width 18.3 % (12.1-15.2)
[2023-12-29 07:45] LABS: Albumin 3.6 g/dL (3.4-5.0); Albumin/Globulin Ratio 0.8 (1.1-1.8); Anion Gap 7.6 mEq/L (5.0-15.0); Bilirubin Total 0.8 mg/dL (0.2-1.0); Globulin 4.8 g/dL (2.3-3.5); Magnesium 1.4 mg/dL (1.6-2.4); Potassium 3.6 mEq/L (3.5-5.1); Protein, Total 8.4 g/dL (6.4-8.2)
--- NOTE | 2023-12-29 11:16 | P.PN ---
Date of Service: 12/29/23 Subjective: ROS: 10 point ROS is negative, however limited due to patient's memory Physical Exam: GEN: Alert, oriented x1 (self), confused HEENT: Normal conjunctiva, sclera anicteric CV: Regular rate and rhythm, no edema Pulm: Nonlabored respirations on room air, clear bilaterally ABD: Soft, nontender, nondistended Neuro: Normal speech, moves extremities vitals reviewed Problem List: Acute Encephalopathy, suspect hepatic encephalopathy Alcoholic liver cirrhosis with Korsakoff syndrome hx Alcohol dependence Left basilar opacities chronic CHF GERD Seizure disorder Dementia Acute Encephalopathy, suspect hepatic encephalopathy Alcoholic liver cirrhosis with Korsakoff syndrome hx Alcohol dependence Family reports patient has been more confused, lethargic, weak recently at home since discharge from [facility] 1 week prior. No nausea/vomiting/diarrhea/cough Spoke to patient's sister - reports with 100% certainty there has been no ETOH use in several months. Reports compliance with home medications. recently admitted to [facility] for ~2weeks, discharged ~1 week ago - hospitalized for status epilepticus / DTs, required vent support, and dc'd on keppra 2000mg bid, and vimpat CT head (12/24): negative ammonia mildly elevated 57, improved; having BMs home lactulose increased to TID from BID (12/25) continue xifaxan seems to be close to baseline; suspect further progression of chronic issues Left basilar opacities CXR (12/24): mild patchy basilar airspace opacities. ?possible early or atypical pneumonia Breathing okay on room air. No fever/cough. No leukocytosis empiric rocephin dc'd (12/24-12/27) PRN nebs chronic CHF GERD confirm home meds, restart as appropriate Seizure disorder resume home keppra, vimpat keppra levels < 2 (12/25) neuro consult Dementia Family reports increased difficulty in managing patient at home - requesting placement. Was scheduled to see his psychiatrist this week in [facility] for worsening dementia. however sister said may not have psychiatrist at [place] any more no psych wagon driller here at this time/ this week most delirium medications carry risk of lowering seizure threshold. He was prescribed risperdal prior to [facility] / seizure hospitalization, but unsure if was new prescription or not. ?risk of lowering seizure threshold. confirm home meds, restarted continue supportive care. Code: DNR Dispo: SNF - pending auth ss/cm consulted to assist with placement confirmed code status changed to DNR after discussion with family at bedside 12/26
--- NOTE | 2023-12-29 13:40 | P.DS ---
Admission Date: 12/27/23 Discharge Date: 12/29/23 Disposition: TRANSFER TO CUSTODIAL Discharge Condition: FAIR Reason for Admission: Change in mental status Consultations: Neurology - Dr. Choi Brief History of Present Illness: 58yo M, PMH: alcohol related dementia, liver cirrhosis, GERD, Patient presented after being brought in by sister because of being more confused. Sister reportedly states patient has been going out of the house AWOL and being hard to find. As per ER team, sister expressed difficulty with managing patient at home. At the time of evaluation patient is conversant. He states he feels more lethargic and weak than usual. But he states his symptoms have been improving since being in the ED for the last 2 hours. He denies any nausea vomiting or headache. He states he lives with his sister, and that she manages medications. He states he has been taking all his meds. He denies any diarrhea or vomiting. He denies any cough. He denies any recent alcohol intake. Attempt made to reach family. On arrival in the ED head CT shows no acute intracranial pathology. Chest x-ray shows small LE pneumonia on the left base, laboratory workup was unremarkable. Serum ammonia mildly elevated at 57, will increase home dose of lactulose from twice daily to 3 times daily. Hospital Course: Problem List: Acute Encephalopathy, suspect hepatic encephalopathy Alcoholic liver cirrhosis with Korsakoff syndrome hx Alcohol dependence Left basilar opacities chronic CHF GERD Seizure disorder Dementia Physician discharge instructions: Patient presented with worsening confusion, lethargy, weakness at home. Unclear etiology however given presentation of symptoms, most consistent with hepatic encephalopathy. CT head was negative for any acute findings. Ammonia was mildly elevated on admission (57). Rest of the labwork on admisison was unremarkable. Patients home lactulose was increased from twice daily to three times daily with good responsed of bowel movements. He was continued on his home medications as recently prescribed on discharged from [facility] ~1 week prior to presentation here. He had improvement of his symptoms. Mentation slightly improved after bowel movements/lactulose and appeared to be close to his baseline and after discussion with family seems to have been complicated by further progression of his chronic issues / dementia and unknown if recent new medications were playing a role. He was apparently confused and sleeping outside at times / difficult to find at home. Patient was hospitalized for nearly 2 weeks 12/08 - 12/18 at [facility] for seizures/status epilepticus requiring intubation. He had improvement and was discharged home on increased dose of keppra (2000mg twice daily) and added vimpat. Dr. Choi, neurologist, was consulted and recommended starting donepezil for worsening dementia/confusion, to be continued on discharge. Patient was feeling better, mentation improving near baseline, and deemed stable for discharge to [facility] for continued monitoring Chest xray on admission noted mild patchy left basilar opacities, concerning for possible early/atypical pneumonia. Patient received ~3 days of rocephin as a precaution to cover possible infection. Patient remained asymptomatic throughout hospitalization. No fever/chills/cough/dyspnea. Antibiotics were dc'd 12/27 and patient remained stable for rest of hospitalization. No further antibiotics warranted on discharge. After review of prior hospitalization - patient was treated for possible aspiration pneumonia and completed full course. Suspect these patchy opacities were resolvinge from prior issue. Regarding his history of alcohol dependence - family reported his last alcohol drink was several ~> 6 months ago. Medications: Donepezil hcl Follow up: PCP 3-5 days Neurology 1-2 months please call to schedule / confirm appointments Physical Exam: GEN: Awake, Alert, oriented x1 (self) ~near baseline HEENT: Normal conjunctiva, sclera anicteric CV: Regular rate and rhythm, no edema Pulm: Nonlabored respirations on room air, clear bilaterally ABD: Soft, nontender, nondistended Neuro: Normal speech, moves extremities Vital Signs/Physical Exam: Temp Pulse Resp BP Pulse Ox 98.2 F 95 H 18 156/78 H 98 12/29/23 04:00 12/29/23 04:00 12/29/23 04:00 12/29/23 04:00 12/29/23 04:00 Laboratory Data at Discharge: WBC 5.10 thou/uL (4.3-10.9) 12/29/23 06:55 Hgb 9.7 g/dL (13.6-17.9) L D 12/29/23 06:55 Hct 29.7 % (39.6-49.0) L 12/29/23 06:55 Plt Count 467 thou/uL (152-406) H 12/29/23 06:55 Sodium 134 mEq/L (136-145) L 12/29/23 06:55 Potassium 3.6 mEq/L (3.5-5.1) 12/29/23 06:55 BUN 9 mg/dL (7-18) 12/29/23 06:55 Creatinine 0.81 mg/dL (0.70-1.30) 12/29/23 06:55 Glucose 112 mg/dL (74-106) H 12/29/23 06:55 Magnesium 1.4 mg/dL (1.6-2.4) L 12/29/23 06:55 Total Bilirubin 0.8 mg/dL (0.2-1.0) 12/29/23 06:55 AST 41 U/L (15-37) H 12/29/23 06:55 ALT 30 U/L (16-61) 12/29/23 06:55 Alkaline Phosphatase 107 U/L (45-117) 12/29/23 06:55 Lipase 33 U/L (13-75) 12/25/23 16:30 Home Medications: Donepezil [Aricept*] 5 mg PO BEDTIME tab 12/29/23 Doxazosin [Cardura*] 1 mg PO BEDTIME 12/29/23 LORazepam [Ativan*] 1 mg PO BID PRN 12/29/23 Lacosamide 200 mg PO BID 12/29/23 Lactulose [Cephulac*] 30 ml PO TID 12/29/23 Levetiracetam [Keppra] 2,000 mg PO BID 12/29/23 Rifaximin [Xifaxan] 550 mg PO BID 12/29/23 Thiamine HCl 100 mg PO DAILY 12/29/23 Thiamine HCl [Vitamin B-1*] 100 mg PO DAILY 12/29/23 Physician Discharge Instructions: Physician discharge instructions: Patient presented with worsening confusion, lethargy, weakness at home. Unclear etiology however given presentation of symptoms, most consistent with hepatic encephalopathy. CT head was negative for any acute findings. Ammonia was mildly elevated on admission (57). Rest of the labwork on admisison was unremarkable. Patients home lactulose was increased from twice daily to three times daily with good responsed of bowel movements. He was continued on his home medications as recently prescribed on discharged from [facility] ~1 week prior to presentation here. He had improvement of his symptoms. Mentation slightly improved after bowel movements/lactulose and appeared to be close to his baseline and after discussion with family seems to have been complicated by further progression of his chronic issues / dementia and unknown if recent new medications were playing a role. He was apparently confused and sleeping outside at times / difficult to find at home. Patient was hospitalized for nearly 2 weeks 12/08 - 12/18 at [facility] for seizures/status epilepticus requiring intubation. He had improvement and was discharged home on increased dose of keppra (2000mg twice daily) and added vimpat. Dr. Choi, neurologist, was consulted and recommended starting donepezil for worsening dementia/confusion, to be continued on discharge. Patient was feeling better, mentation improving near baseline, and deemed stable for discharge to [facility] for continued monitoring Chest xray on admission noted mild patchy left basilar opacities, concerning for possible early/atypical pneumonia. Patient received ~3 days of rocephin as a precaution to cover possible infection. Patient remained asymptomatic throughout hospitalization. No fever/chills/cough/dyspnea. Antibiotics were dc'd 12/27 and patient remained stable for rest of hospitalization. No further antibiotics warranted on discharge. After review of prior hospitalization - patient was treated for possible aspiration pneumonia and completed full course. Suspect these patchy opacities were resolvinge from prior issue. Regarding his history of alcohol dependence - family reported his last alcohol drink was several ~> 6 months ago. Medications: Donepezil hcl Follow up: PCP 3-5 days Neurology 1-2 months please call to schedule / confirm appointments Followup: Travis Choi MD [ASSOCIATE-ACTIVE - CAN ADMIT] - 1-2 Weeks NONE,NONE [Primary Care Provider] - Time spent managing pt's care (in minutes): 45
== END 2023-12-29 15:30 | DRG 442 ==
LOC: ER 14:34 → ERHOLD 20:18 → 2ND 21:32 → OBSVTOIN 12-27 17:08
PROVIDERS: ADMIT Internal Medicine; ATTEND Hospitalist
DX: K76.82 Hepatic encephalopathy (principal); F03.911 Unspecified dementia, unspecified severity, with agitation; F10.27 Alcohol dependence with alcohol-induced persisting dementia; I50.9 Heart failure, unspecified; K21.9 Gastro-esophageal reflux disease without esophagitis; F10.26 Alcohol dependence with alcohol-induced persisting amnestic disorder; K70.30 Alcoholic cirrhosis of liver without ascites; G40.909 Epilepsy, unspecified, not intractable, without status epilepticus; Z66 Do not resuscitate; Z79.82 Long term (current) use of aspirin; Z79.899 Other long term (current) drug therapy; Y90.0 Blood alcohol level of less than 20 mg/100 ml
CPT/HCPCS: 36415; 70450; 71045; 80053; 80177; 81003; 82077; 82140; 83690; 83735; 85025; 85027; 97116; 97161; 97530; 99285; G0378; J0696; J3486; J7042

== ENCOUNTER 2024-03-01 06:52 | Emergency (ER) | payer OTHER ==
[2024-03-01] MEDS ORDERED: LIDOCAINE 2% W/EPI 1:200,000 MPF 20 ML VIAL IM ONE (07:06)
[2024-03-01] MEDS ORDERED: NA CHLORIDE 0.9% 500 ML ONE (07:16)
[2024-03-01] MEDS ORDERED: TDAP (DIPHTH,PERTUSS(ACELL),TET VAC) 0.5 ML VIAL IMVAC ONE (07:16)
[2024-03-01 07:46] LABS: Albumin 3.2 g/dL (3.4-5.0); Albumin/Globulin Ratio 0.7 (1.1-1.8); Anion Gap 8.8 mEq/L (5.0-15.0); Bilirubin Total 0.6 mg/dL (0.2-1.0); Globulin 4.7 g/dL (2.3-3.5); Potassium 3.8 mEq/L (3.5-5.1); Protein, Total 7.9 g/dL (6.4-8.2)
[2024-03-01 07:48] LABS: Absolute Basophils 0.1 K/uL (0-0.5); Absolute Eosinophils 0.1 K/uL (0-0.5); Absolute Monocytes 0.8 K/uL (0.1-1.3); Absolute Neutrophil 2.2 K/uL (1.8-8.0); Basophils % 1.1 % (0-1.3); Eosinophils % 2.3 % (0-4.4); Hematocrit 31.5 % (39.6-49.0); Hemoglobin 9.9 g/dL (13.6-17.9); Lymphocytes % 38.7 % (15.3-44.8); MCH 29.3 pg (27.0-35.0); MCHC 31.4 g/dL (32.0-36.0); MCV 93.5 fL (80-100); MPV 8.1 fL (7.6-11.3); Monocytes % 15.7 % (3.3-12.3); Neutrophils % 42.2 % (41.7-73.7); Platelets 231 thou/uL (152-406); RBC Red Blood Cell Count 3.37 M/uL (4.33-5.43); Red Cell Distribution Width 19.4 % (12.1-15.2)
--- NOTE | 2024-03-01 07:52 | RAD REPORT ---
EXAM DESCRIPTION: CT - Head C Spine Cap Wo Con - 03/01/2024 7:39 am CLINICAL HISTORY: Trauma, head and neck injury. Chest, abdomen and pelvis pain. PAIN COMPARISON: Chest Abd Pelvis Wo Con dated 07/27/2023; Chest Single View dated 12/25/2023; Chest Single V iew dated 02/09/2024 TECHNIQUE: CT head without contrast. CT cervical spine without contrast with coronal and sagittal reformatted images. CT chest, abdomen and pelvis with coronal and sagittal reformatted images of the spine. All CT scans are performed using dose optimization technique as appropriate and may include automated exposure control or mA/KV adjustment according to patient size. FINDINGS: CT HEAD WITHOUT CONTRAST: No intracranial hemorrhage, hydrocephalus or extra-axial fluid collection. No acute large vascular te rritory infarct. Cerebral atrophy. The paranasal sinuses and mastoids are clear. The calvarium is intact. CT CERVICAL SPINE WITHOUT CONTRAST: No fracture or subluxation. The prevertebral soft tissues are normal in thickness.Reversal the normal cervical lordosis. Spondylo sis present. CT CHEST, ABDOMEN, PELVIS: Thorax: Chest Wall: No abnormal mass Lungs: No acute abnormality. Pleura: No effusions or pneumothorax. Lorin/Mediastinum: No lymphadenopathy. Aorta/Pulmonary Arteries: Unremarkable Heart: Normal size. Abdomen/Pelvis: Liver: No acute abnormality or suspicious lesions. Biliary: Cholelithiasis without CT evidence of acute cholecystitis. Stomach: No significant focal abnormality. Duodenum: No significant focal abnormality. Pancreas: No significant abnormality. Spleen: No significant abnormality. Adrenal: No suspicious lesions. Kidney/ureter: No hydronephrosis. Punctate nonobstructing renal calculi. Too small to characterize an d/or benign appearing renal lesions are noted. Retroperitoneum: No retroperitoneal adenopathy. Vascular: No aneurysm. Bowel: No significant focal abnormality. Peritoneum: No ascites or free air. Bladder: Grossly unremarkable. Reproductive: No adnexal masses. Bones: Combination of chronic and subacute appearing rib fractures bilaterally. No definite acute fra cture. Remote left transverse process fractures. Other: n/a IMPRESSION: Negative for acute traumatic findings. Multiple chronic and subacute appearing bilateral rib fractures.
--- NOTE | 2024-03-01 08:20 | EDPHYS ---
Physician Documentation [facility] Name: Fan Lei Jr Age: 58 yrs Sex: Male : 1965 Arrival Date: 03/01/2024 Time: 06:52 Bed 7 Private MD: ED Physician Bubba Flanagan HPI: 03/01 07:19 This 58 yrs old Male presents to ER via EMS with complaints of Laceration To [facility] Head. 07:19 The patient has a laceration related to: falling from a standing position, occurred at [facility] a skilled nursing or assisted living facility, and there are no complicating factors. The laceration(s) is(are) located on the face and right eye. Onset: The symptoms/episode began/occurred just prior to arrival. Associated signs and symptoms: The patient has no apparent associated signs or symptoms. The patient has experienced similar episodes in the past, multiple times. Historical: - Allergies: 06:57 No Known Allergies; bm8 - Home Meds: 06:57 Unable to obtain [Active]; bm8 - PMHx: 06:57 Alcohol dependence; cirrhosis of liver; Congestive heart failure; Dementia; bm8 Gastroesophageal reflux disease; GI Bleed; Seizure; Schizophrenia; - PSHx: 06:57 Unable to Obtain; bm8 - Immunization history:: Adult Immunizations unknown. - Infectious Disease History:: Denies. - Social history:: Smoking status: unknown. - Family history:: not pertinent. ROS: 07:19 Constitutional: Negative for fever, chills, and weight loss, Eyes: Negative for injury, zaria pain, redness, and discharge, Neck: Negative for injury, pain, and swelling, Cardiovascular: Negative for chest pain, palpitations, and edema, Respiratory: Negative for shortness of breath, cough, wheezing, and pleuritic chest pain, Abdomen/GI: Negative for abdominal pain, nausea, vomiting, diarrhea, and constipation, Back: Negative for injury and pain, : Negative for injury, bleeding, discharge, and swelling, MS/Extremity: Negative for injury and deformity, Skin: Negative for injury, rash, and discoloration, Neuro: Negative for headache, weakness, numbness, tingling, and seizure, Psych: Negative for depression, anxiety, suicide ideation, homicidal ideation, and hallucinations, Allergy/Immunology: Negative for hives, rash, and allergies, Endocrine: Negative for neck swelling, polydipsia, polyuria, polyphagia, and marked weight changes, Hematologic/Lymphatic: Negative for swollen nodes, abnormal bleeding, and unusual bruising, Exam: 07:19 Constitutional: This is a well developed, well nourished patient who is awake, alert, zaria and in no acute distress. Eyes: Pupils equal round and reactive to light, extra-ocular motions intact. Lids and lashes normal. Conjunctiva and sclera are non-icteric and not injected. Cornea within normal limits. Periorbital areas with no swelling, redness, or edema. ENT: Nares patent. No nasal discharge, no septal abnormalities noted. Tympanic membranes are normal and external auditory canals are clear. Oropharynx with no redness, swelling, or masses, exudates, or evidence of obstruction, uvula midline. Mucous membranes moist. Neck: Trachea midline, no thyromegaly or masses palpated, and no cervical lymphadenopathy. Supple, full range of motion without nuchal rigidity, or vertebral point tenderness. No Meningismus. Chest/axilla: Normal chest wall appearance and motion. Nontender with no deformity. No lesions are appreciated. Cardiovascular: Regular rate and rhythm with a normal S1 and S2. No gallops, murmurs, or rubs. Normal PMI, no JVD. No pulse deficits. Respiratory: Lungs have equal breath sounds bilaterally, clear to auscultation and percussion. No rales, rhonchi or wheezes noted. No increased work of breathing, no retractions or nasal flaring. Abdomen/GI: Soft, non-tender, with normal bowel sounds. No distension or tympany. No guarding or rebound. No evidence of tenderness throughout. Back: No spinal tenderness. No costovertebral tenderness. Full range of motion. Skin: Warm, dry with normal turgor. Normal color with no rashes, no lesions, and no evidence of cellulitis. MS/ Extremity: Pulses equal, no cyanosis. Neurovascular intact. Full, normal range of motion. Neuro: Awake and alert, GCS 15, oriented to person, place, time, and situation. Cranial nerves II-XII grossly intact. Motor strength 5/5 in all extremities. Sensory grossly intact. Cerebellar exam normal. Normal gait. Psych: Awake, alert, with orientation to person, place and time. Behavior, mood, and affect are within normal limits. 07:19 Head/face: Noted is a laceration(s), that is deep, 2.5 cm(s), of the right eye, Vital Signs: 06:55 BP 143 / 85; Pulse 64; Resp 16; Temp 97.6; Pulse Ox 98% ; Weight 72.57 kg; Height 5 ft. bm8 6 in. ; Pain 0/10; 08:00 BP 149 / 80; Pulse 71; Resp 16; Pulse Ox 97% on R/A; db 06:55 Body Mass Index 25.82 (72.57 kg, 167.64 cm) bm8 06:55 Pain Scale: Adult bm8 Laceration: 07:30 Wound Repair of 2.5cm ( 1.0in ) subcutaneous laceration to face and right eye. Linear zaria shaped.. Distal neuro/vascular/tendon intact. Anesthesia: Local anesthetic administered with 6 mls of 1% lidocaine w/ Epi. Wound prep: Moderate cleansing by me. Skin closed with 3 5-0 Prolene using interrupted sutures and sterile technique. Dressed with Neosporin, non-adherent dressing. Patient tolerated well. MDM: 07:03 Patient medically screened. zaria 07:19 Differential diagnosis: superficial laceration, vascular injury. Data reviewed: vital zaria signs, nurses notes, EMS record, skilled nursing records, lab test result(s), radiologic studies, CT scan. Consideration of Admission/Observation Escalation of care including admission/observation considered. I considered the following discharge prescriptions or medication management in the emergency department Medications were administered in the Emergency Department. See MAR. Independent interpretation of the following test(s) in the Emergency Department CT Scan: My interpretation is ct head. Test considered but Not performed: EKG: no ekg. Care significantly affected by the following chronic conditions: Liver Disease, cirrohosis, chf, dementia, gerd. 03/01 07:06 Order name: CBC with Diff; Complete Time: 08:06 zaria 03/01 07:06 Order name: Comprehensive Metabolic Panel; Complete Time: 08:06 zaria 03/01 07:06 Order name: CT Traumagram (Head C Spine CAP wo con); Complete Time: 08:06 zaria 08 07:06 Order name: Dressing - Wound; Complete Time: 07:12 zaria 03/01 07:06 Order name: Gloves, Sterile; Complete Time: 07:12 zaria 08/09 07:06 Order name: Prolene, Sutures; Complete Time: 07:12 zaria 03/01 07:06 Order name: Setup Suture Tray; Complete Time: 07:12 [facility] Administered Medications: 07:23 CANCELLED (Duplicate Order): tetanus toxoid,adsorbed0.5 ml IM once; Provide Vaccine db Information Statement (VIS). 07:23 Drug: NS 0.9% IV 500 ml IV at bolus once Route: IV; Rate: bolus; Site: right db antecubital; 08:43 Follow up: Response: No adverse reaction; IV Status: Completed infusion; IV Intake: db 500ml 07:24 Drug: Boostrix Tdap IM 0.5 ml IM once; as a single dose Route: IM; Site: right deltoid; db 08:43 Follow up: Response: (VIS) Vaccine information sheet provided today. Questions and/or db concerns addressed. VIS edition date: Feb 26, 2021.; No adverse reaction 07:27 Drug: Lidocaine-Epinephrine Infiltration -1%: (1:100,000) 6 ml 20 ml Infiltration once; db to bedside {Note: GIVEN TO PROVIDER.} Volume: 20 ml; Route: Infiltration; 08:44 Follow up: Response: No adverse reaction db Disposition Summary: 03/01/24 08:19 Discharge Ordered Notes: Location: Home zaria Problem: new zaria Symptoms: have improved zaria Condition: Stable zaria Diagnosis - History of falling zaria - Fall on same level, unspecified zaria - Laceration without foreign body of other part of head - right brow zaria - Dementia in other diseases classified elsewhere without behavioral disturbance zaria - Anemia, unspecified zaria Followup: zaria - With: Private Physician - When: 2 - 3 days - Reason: Recheck today's complaints, Continuance of care, Re-evaluation by your physician Discharge Instructions: - Discharge Summary Sheet zaria - Dementia zaria - Head Injury, Adult zaria - Fall Prevention in the Home, Adult zaria - Laceration Care, Adult zaria - Laceration Care, Adult, [id number] zaria - Fall Prevention in the Home, Adult, [id number] zaria - Head Injury, Adult, [id number] zaria - Dementia, [id number] zaria Forms: - Medication Reconciliation Form zaria - Antibiotic Education zaria - Prescription Opioid Use zaria - Patient Portal Instructions zaria - Leadership Thank You Letter zaria Signatures: Dispatcher [employer] Bubba Cotton MD MD cha Benton, Danielle, RN RN db Yossi Coley RN RN bm8 Corrections: (The following items were deleted from the chart) 07: 07:06 Tetanus Toxoid,Adsorbed IM 0.5 ml IM once; Provide Vaccine Information Statement db (VIS). ordered. [facility] 07: 07:23 Tetanus Toxoid,Adsorbed IM 0.5 ml IM once; Provide Vaccine Information Statement db (VIS). ordered. db
--- NOTE | 2024-03-01 08:20 | ER ---
Nurse's Notes [facility] Name: Fan Lei Jr Age: 58 yrs Sex: Male : 1965 Arrival Date: 03/01/2024 Time: 06:52 Bed 7 Private MD: Diagnosis: History of falling;Fall on same level, unspecified;Laceration without foreign body of other part of head-right brow;Dementia in other diseases classified elsewhere without behavioral disturbance;Anemia, unspecified Presentation: 03/01 06:55 Chief complaint: EMS states: Pt rolled out of bed and hit head causing 1" laceration to bm8 right eyebrow. Coronavirus screen: At this time, the client does not indicate any symptoms associated with coronavirus-19. Ebola Screen: Patient negative for fever greater than or equal to 101.5 degrees Fahrenheit, and additional compatible Ebola Virus Disease symptoms Patient denies exposure to infectious person. Patient denies travel to an Ebola-affected area in the 21 days before illness onset. No symptoms or risks identified at this time. Complicating Factors: There are no complicating factors for this patient. Initial Sepsis Screen: Does the patient meet any 2 criteria? No. Patient's initial sepsis screen is negative. Does the patient have a suspected source of infection? No. Patient's initial sepsis screen is negative. Risk Assessment: Do you want to hurt yourself or someone else? Patient reports no desire to harm self or others. Onset of symptoms is unknown. 06:55 Method Of Arrival: EMS: [facility] bm8 06:55 Acuity: KITA 3 bm8 Triage Assessment: 06:57 General: Appears in no apparent distress. comfortable, Behavior is cooperative, bm8 appropriate for age. Pain: Complains of pain in right eye. EENT: No signs and/or symptoms were reported regarding the EENT system. Neuro: Level of Consciousness is awake, alert, obeys commands, Oriented to person. Cardiovascular: Capillary refill < 3 seconds Patient's skin is warm and dry. Respiratory: Airway is patent Respiratory effort is even, unlabored, Respiratory pattern is regular, symmetrical. GI: : Derm: Wound noted right eye. Musculoskeletal: No signs and/or symptoms reported regarding the musculoskeletal system. Injury Description: Laceration sustained to right eye is clean, superficial, 0.5 to 2.5 cm long, not bleeding, was sustained 1-2 hours ago. is bleeding a small amount. Historical: - Allergies: 06:57 No Known Allergies; bm8 - Home Meds: :57 Unable to obtain [Active]; bm8 - PMHx: 06:57 Alcohol dependence; cirrhosis of liver; Congestive heart failure; Dementia; bm8 Gastroesophageal reflux disease; GI Bleed; Seizure; Schizophrenia; - PSHx: :57 Unable to Obtain; bm8 - Immunization history:: Adult Immunizations unknown. - Infectious Disease History:: Denies. - Social history:: Smoking status: unknown. - Family history:: not pertinent. Screenin:24 [facility] ED Fall Risk Assessment (Adult) History of falling in the last 3 months, db including since admission Yes- fall prone (multiple falls) (3 pts) Confusion or Disorientation Yes (5 pts) Intoxicated or Sedated No (0 pts) Impaired Gait Yes (1 pt) Mobility Assist Device Used Yes (1 pt) Altered Elimination No (0 pt) Score/Fall Risk Level 3 or more points = High Risk Oriented to surroundings, Maintained a safe environment, Hourly rounding (assess needs \\T\\ fall precautionary measures) done, Utilized family, sitter, or virtual production supervisor trainee as indicated. Abuse screen: Denies threats or abuse. Denies injuries from another. Nutritional screening: No deficits noted. Tuberculosis screening: No symptoms or risk factors identified. Assessment: 07:24 Reassessment: Patient appears in no apparent distress at this time. Patient and/or db family updated on plan of care and expected duration. Pain level reassessed. LACERATION TO RIGHT EYEBROW FROM FALL TODAY AT [facility]. General: Appears in no apparent distress. comfortable, Behavior is quiet. Neuro: Level of Consciousness is confused, Oriented to none. Respiratory: Airway is patent Respiratory effort is even, unlabored, Respiratory pattern is regular, symmetrical. 08:05 Reassessment: Patient appears in no apparent distress at this time. Patient and/or db family updated on plan of care and expected duration. Pain level reassessed. LACERATION REPAIRED BY DR. ALMAZAN. 08:26 Reassessment: REPORT CALLED TO BLADE LENZ AT [facility]. db 09:03 Reassessment: Patient appears in no apparent distress at this time. Patient and/or db family updated on plan of care and expected duration. Pain level reassessed. EMS ARRIVED FOR PATIENT TRANSPORTATION BACK TO [facility]. Vital Signs: 06:55 BP 143 / 85; Pulse 64; Resp 16; Temp 97.6; Pulse Ox 98% ; Weight 72.57 kg; Height 5 ft. bm8 6 in. ; Pain 0/10; 08:00 BP 149 / 80; Pulse 71; Resp 16; Pulse Ox 97% on R/A; db 06:55 Body Mass Index 25.82 (72.57 kg, 167.64 cm) bm8 06:55 Pain Scale: Adult 8 ED Course: 06:54 Patient arrived in ED. bm8 06:57 Triage completed. bm8 06:57 Arm band placed on right wrist. 8 07:03 Bubba Almazan MD is Attending Physician. [facility] 07:08 Mary Delgado, KYRA is Primary Nurse. db 07:15 Missed attempt(s): 22 gauge in right forearm. Bleeding controlled, band aid applied, db catheter tip intact. 07:24 Inserted saline lock: 22 gauge in right antecubital area, using aseptic technique. db Blood collected. Flushed with 10 mL NS. 07:26 Patient has correct armband on for positive identification. Bed in low position. Call db light in reach. Side rails up X 1. Pulse ox on. NIBP on. Warm blanket given. 07:[address] via stretcher. db 07:41 CT Traumagram (Head C Spine CAP wo con) In Process Unspecified. EDMS 08:24 Assist provider with laceration repair on right eye Set up tray. Performed by Bubba Almazan MD. 08:43 IV discontinued, intact, bleeding controlled, No redness/swelling at site. db 08:44 Provided Education on: LACERATION CARE AND FOLLOWUP. db Administered Medications: 07:23 CANCELLED (Duplicate Order): tetanus toxoid,adsorbed0.5 ml IM once; Provide Vaccine db Information Statement (VIS). 07:23 Drug: NS 0.9% IV 500 ml IV at bolus once Route: IV; Rate: bolus; Site: right db antecubital; 08:43 Follow up: Response: No adverse reaction; IV Status: Completed infusion; IV Intake: db 500ml 07:24 Drug: Boostrix Tdap IM 0.5 ml IM once; as a single dose Route: IM; Site: right deltoid; db 08:43 Follow up: Response: (VIS) Vaccine information sheet provided today. Questions and/or db concerns addressed. VIS edition date: Feb 26, 2021.; No adverse reaction 07:27 Drug: Lidocaine-Epinephrine Infiltration -1%: (1:100,000) 6 ml 20 ml Infiltration once; db to bedside {Note: GIVEN TO PROVIDER.} Volume: 20 ml; Route: Infiltration; 08:44 Follow up: Response: No adverse reaction db Medication: 07:24 Vaccine Information Statement (VIS) provided today. Questions and/or concerns db addressed. VIS edition date: February 26, 2018. Intake: 08:43 IV: 500ml; Total: 500ml. db Outcome: 08:19 Discharge ordered by MD. enciso 08:26 Discharged to [facility]. Report called to BLADE rodriguez 08:26 Condition: stable 08:26 Discharge instructions given to [facility], Instructed on discharge instructions, follow up and referral plans. 09:07 Patient left the ED. db Signatures: Dispatcher [employer] EDMO Bubba Almazan MD MD cha Benton, Danielle, RN RN Yossi Barrett, RN RN bm8
[2024-03-01] MEDS ORDERED: DERMABOND SKIN ADHESIVE TOP ONE (08:39)
[2024-03-01 09:14] VITALS: TEMP 97.6
[2024-03-01 09:16] VITALS: BP 149/80; O2SAT 97
== END 2024-03-01 09:07 | disposition home or self-care (01) ==
LOC: ER 06:52
DX: S01.111A Laceration without foreign body of right eyelid and periocular area, initial encounter (principal); Z91.81 History of falling; W17.89XA Other fall from one level to another, initial encounter; D64.9 Anemia, unspecified; F10.20 Alcohol dependence, uncomplicated; I50.9 Heart failure, unspecified; F02.80 Dementia in other diseases classified elsewhere, unspecified severity, without behavioral disturbance, psychotic disturbance, mood disturbance, and anxiety
CPT/HCPCS: 12011; 85025; 36415; 80053; 70450; 71250; 72125; 96360; 96372; 99285; J7040